=== PATIENT | female | born 1940 | race Hispanic/Latino ===

== ENCOUNTER 2016-08-07 13:22 | Inpatient (IN) | payer MEDICARE, BC ==
[2016-08-07 13:23] VITALS: BMI 14.4
[2016-08-07] MEDS ORDERED: Sodium Chloride 0.9% 500 ML IV ONE (13:38)
[2016-08-07] MEDS ORDERED: Tetanus/Diphtheria Toxoids 0.5 ml Syringe IM ONE ×2 (13:38→16:17)
--- NOTE | 2016-08-07 13:52 | C.PDOC ---
History Of Present Illness 76 y/o female with PMHx of arthritis brought to ED by EMS after patient was found on floor. Patient states she tripped at home and landed on her face. Patient complaints of left face, hip and right leg pain. Patient denies abdominal pain, ACKERMAN, dizziness or any other complaints at this time. Patient is a poor historian - HPI Time Seen by Provider: 08/07/16 13:29 Chief Complaint (Nursing): Trauma History Per: Patient History/Exam Limitations: no limitations Onset/Duration Of Symptoms: Days Past Medical History Reviewed: Historical Data, Nursing Documentation, Vital Signs Vital Signs: Last Vital Signs Temp 97.1 F L 08/07/16 15:23 Pulse 118 H 08/07/16 17:06 Resp 20 08/07/16 17:06 BP 105/49 L 08/07/16 17:06 Pulse Ox 98 08/07/16 17:06 - Medical History PMH: Arthritis (right wrist), Bronchitis Surgical History: Appendectomy - [facility] Procedures CATARAC PHACOEMULS/ASPIR (08/10/14) INSERT LENS AT CATAR EXT (08/10/14) Family History: States: No Known Family Hx - Social History Hx Alcohol Use: No Hx Substance Use: No - Immunization History Hx Tetanus Toxoid Vaccination: No Hx Influenza Vaccination: No Hx Pneumococcal Vaccination: No Review Of Systems Except As Marked, All Systems Reviewed And Found Negative. Constitutional: Negative for: Fever, Chills Respiratory: Negative for: Shortness of Breath Musculoskeletal: Positive for: Neck Pain, Leg Pain Skin: Positive for: Bruising Neurological: Negative for: Weakness, Headache, Dizziness Physical Exam - Physical Exam Appears: Chronically Ill Skin: Dry, Pale Head: Atraumatic, Normacephalic, Other (Left face Hematoma and bruising) Eye(s): bilateral: Normal Inspection, PERRL Oral Mucosa: Moist Neck: Decreased ROM Gastrointestinal/Abdominal: Soft, No Tenderness, No Guarding, No Rebound Extremity: Tenderness, Other (Right arm bruising, right leg contracted, pain to right hip) Neurological/Psych: Oriented x3 ED Course And Treatment - Laboratory Results Result Diagrams: 08/07/16 14:43 08/07/16 14:43 ECG Rhythm: Atrial Fibrillation (w/ rapid ventricular response), ST/T Changes ( Abnormality, consider lateral ischemia) ECG Interpretation: Abnormal Rate From EC Medical Decision Making Medical Decision Making: Patient persistently tachy, no fever, no obvious source of infection, urine clear, X Ray chest, unremarkable, but yet patient has elevated lactate and WBC count. Patient treated with pain management, IV fluids and bread spectrum ABX Patient is status post fall with unknown time on the ground. She is not in rhabdo, she has a right hip fracture, with questionable findings to left hip. Spoke with PMD, requesting ICU. Spoke with ICU, agree with admission to ICU. Disposition - Disposition Disposition: HOSPITALIZED Disposition Time: 17:59 Condition: GUARDED - Clinical Impression Clinical Impression: Sepsis, Pelvic fracture, Dehydration - PA / ENTRY MANAGER / Resident Statement MD/DO has reviewed & agrees with the documentation as recorded. MD/DO has examined the patient and agrees with the treatment plan. - Scribe Statement The provider has reviewed the documentation as recorded by the Derekibdeborah Cortes All medical record entries made by the Derekibdeborah were at my direction and personally dictated by me. I have reviewed the chart and agree that the record accurately reflects my personal performance of the history, physical exam, medical decision making, and the department course for this patient. I have also personally directed, reviewed, and agree with the discharge instructions and disposition. Decision To Admit - Pt Status Changed To: Hospital Disposition Of: Inpatient - Admit Certification Admit to Inpatient:: After my assessment, the patient will require hospitalization for at least two midnights. This is because of the severity of symptoms shown, intensity of services needed, and/or the medical risk in this patient being treated as an outpatient. - InPatient: Physician Admission Certification: I certify that this patient requires 2 or more midnights of care for the following reason:: critically ill patient - . Bed Request Type: ICU Admitting Physician: Paul Rodriguez Patient Diagnosis: Sepsis, Pelvic fracture, Dehydration
[2016-08-07] MEDS ORDERED: Sodium Chloride 0.9% 1,000 ML ONE (14:34)
[2016-08-07 14:49] LABS: BASO % 0.1 % (0.0-2.0); HEMOGLOBIN 14.9 g/dL (11.0-16.0); LYMPH # 0.4 K/uL (1.0-4.3); LYMPH % 2.2 % (20.0-40.0); MEAN CELL VOLUME 112.8 fL (81.0-99.0); MEAN CORPUSCULAR HEMOGLOBIN 36.8 pg (27.0-31.0); MEAN CORPUSCULAR HGB CONC 32.6 g/dL (33.0-37.0); MEAN PLATELET VOLUME 10.1 fL (7.2-11.7); MONO # 1.5 K/uL (0.0-0.8); NEUT # 17.4 K/uL (1.8-7.0); NEUT % 89.7 % (50.0-75.0); NRBC % 0.1 % (0.0-2.0); PLATELET COUNT 175 K/uL (130-400); RBC 4.06 Mil/uL (3.80-5.20); RED CELL DISTRIBUTION WIDTH 18.1 % (11.5-14.5); WHITE BLOOD COUNT 19.4 K/uL (4.8-10.8)
[2016-08-07 14:52] LABS: VENOUS BLOOD GAS BASE EXCESS -7.3 mmol/L (0.0-2.0); VENOUS BLOOD GAS PCO2 39 mmHg (40-60); VENOUS BLOOD GAS PO2 27 mm/Hg (30-55); VENOUS BLOOD PH 7.29 (7.32-7.43)
[2016-08-07 14:57] LABS: ALBUMIN 3.6 g/dL (3.5-5.0); INR 1.1; PROTHROMBIN TIME 12.2 SECONDS (9.7-12.2)
[2016-08-07 15:00] LABS: ALT/SGPT 70 U/L (9-52); AST/SGOT 103 U/L (14-36); BLOOD UREA NITROGEN 52 mg/dL (7-17); CALCIUM 8.3 mg/dl (8.6-10.4); GFR AFRICAN-AMERICAN 31; GFR NON-AFRICAN AMERICAN 26
[2016-08-07 15:07] LABS: BANDS 1 % (0-2); MONOCYTE 2 % (0-10); NEUTROPHIL 96 % (50-75); TOTAL CELLS COUNTED 100
[2016-08-07 15:08] LABS: ANISOCYTOSIS SLIGHT; PLATELET ESTIMATE NORMAL (NORMAL)
[2016-08-07 15:09] LABS: POLYCHROMIC SLIGHT; TEARDROP CELLS SLIGHT
[2016-08-07 15:12] LABS: LYMPHOCYTE 1 % (20-40)
[2016-08-07] MEDS ORDERED: cefTRIAXone IV 1 gm in Dextros 50 ML IVPB ONE ×2 (15:13→15:26)
--- NOTE | 2016-08-07 15:20 | RAD ---
PROCEDURE: CHEST RADIOGRAPH, 1 VIEW HISTORY: fall COMPARISON: None available. FINDINGS: LUNGS: Clear. PLEURA: No pneumothorax or pleural fluid seen. CARDIOVASCULAR: Normal. OSSEOUS STRUCTURES: Thoracic dextroscoliosis. No osseous fracture identified. VISUALIZED UPPER ABDOMEN: Normal. OTHER FINDINGS: None. IMPRESSION: No active disease.
[2016-08-07] MEDS ORDERED: Sodium Chloride 0.9% 2,000 ML ONE (15:26)
[2016-08-07 15:49] LABS: GRANULAR CAST 1 /lpf (0-1); URINE AMORPHOUS SEDIMENT OCC /ul (<OCC); URINE BACTERIA RARE (<OCC); URINE BILIRUBIN NEGATIVE (NEGATIVE); URINE BLOOD NEGATIVE (NEGATIVE); URINE CLARITY Hazy (Clear); URINE COLOR Amber (YELLOW); URINE GLUCOSE (UA) 1+ mg/dL (Normal); URINE HYALINE CAST >20 /lpf (0-2); URINE LEUKOCYTE ESTERASE NEG Leu/uL (Negative); URINE NITRATE NEGATIVE (NEGATIVE); URINE PROTEIN 1+ mg/dL (NEGATIVE)
--- NOTE | 2016-08-07 16:16 | CT ---
PROCEDURE: CT HEAD WITHOUT CONTRAST. HISTORY: fall COMPARISON: None available. TECHNIQUE: Axial computed tomography images were obtained through the head/brain without intravenous contrast. Radiation dose: Total exam DLP = 795.01 mGy-cm. This CT exam was performed using one or more of the following dose reduction techniques: Automated exposure control, adjustment of the mA and/or kV according to patient size, and/or use of iterative reconstruction technique. FINDINGS: HEMORRHAGE: No intracranial hemorrhage. BRAIN: No mass effect or edema. Mild diffuse age-appropriate cerebral atrophy. Mild to moderate periventricular white matter lucency consistent with microvascular ischemic change. VENTRICLES: Unremarkable. No hydrocephalus. CALVARIUM: Unremarkable. PARANASAL SINUSES: Unremarkable as visualized. No significant inflammatory changes. MASTOID AIR CELLS: Unremarkable as visualized. No inflammatory changes. OTHER FINDINGS: None. IMPRESSION: No intracranial hemorrhage. Age related atrophy and chronic microvascular ischemic change.
--- NOTE | 2016-08-07 16:22 | CT ---
CT orbits without IV contrast Indication: Trauma, fall Comparison: None available Technique: Axial computed tomography images were obtained of the orbits without the use of intravenous contrast. Coronal and sagittal reformatted images were generated and reviewed. This CT exam was performed using 1 or more of the falling dose reduction techniques: Automated exposure control, adjustment of the MAA and/or kV according to patient size, and/or use of iterative reconstruction technique. Radiation dose: Total exam DLP = 996.97 mGy-cm. Findings: Extensive streak artifact from dental hardware. Left facial soft tissue swelling. The facial bones appear intact without acute displaced fracture identified. Osseous demineralization. Visualized paranasal sinuses appear clear without air-fluid levels. The mastoid air cells appear clear. The temporomandibular joints are located. The orbits appear unremarkable. Opacification within the right external auditory canal, likely cerumen. The visualized brain demonstrates generalized atrophy nonspecific white matter changes. Degenerative changes of the included portions upper cervical spine. Impression: Left facial soft tissue swelling. Otherwise, no acute findings. See above.
--- NOTE | 2016-08-07 16:50 | RAD ---
PROCEDURE: Right Hip Radiographs. HISTORY: trauma COMPARISON: None. FINDINGS: BONES: There is a fracture of the right femoral neck. The fracture is displaced and mildly impacted. There is linear lucency through the left greater trochanter which may reflect fracture. This is not well evaluated radiographically. Please correlate clinically and consider further radiographic evaluation if clinically warranted. . The pelvis appears intact. The right femoral head is normally situated in the acetabulum. JOINTS: Normal. SOFT TISSUES: Normal. OTHER FINDINGS: None. IMPRESSION: Fracture right femoral neck with displacement and mild impaction. Questionable fracture of left greater trochanter. Please correlate clinically and consider further radiographic evaluation.
--- NOTE | 2016-08-07 17:17 | CT ---
CT cervical spine without IV contrast Indication: Trauma Comparison: None available Technique: Axial computed tomography images were obtained of the cervical spine without the use of intravenous contrast. Coronal and sagittal reformatted images were created and reviewed. This CT exam was performed using 1 or more of the falling dose reduction techniques: Automated exposure control, adjustment of the MAA and/or kV according to patient size, and/or use of iterative reconstruction technique. Radiation dose: Total exam DLP = 216.48 mGy-cm. Findings: Straightening of the normal cervical lordosis may be related to muscle spasm or positioning. Multilevel degenerative changes including intervertebral disc space narrowing and small osteophyte formation. There is no evidence of acute fracture or subluxation. Vertebral body heights appear within normal limits. The prevertebral soft tissues and spinolaminar lines appear intact. The lateral masses are preserved. The dens tip is intact. There is proper alignment of the lateral masses of C1 with the C2 vertebral body. Carotid artery calcifications bilaterally. Included portions of the thyroid gland appear unremarkable. Included portions of lung apices demonstrates emphysematous changes. Impression: No evidence of acute fracture or subluxation. Straightening of the normal cervical lordosis may be related to muscle spasm or positioning. Emphysema within the included lung apices. Bilateral carotid artery calcifications.
[2016-08-07 17:35] LABS: VENOUS BLOOD GAS BASE EXCESS -8.1 mmol/L (0.0-2.0); VENOUS BLOOD GAS PCO2 50 mmHg (40-60); VENOUS BLOOD GAS PO2 33 mm/Hg (30-55); VENOUS BLOOD PH 7.21 (7.32-7.43)
--- NOTE | 2016-08-07 18:33 | CP.PCM.CON ---
<Kiran Barnett - Last Filed: 08/07/16 18:55> History of Present Illness - History of Present Illness History of Present Illness: ICU Consult note This is a 76 yo F with no significant PMH, on no medications (confirmed by pt's PMD) that presented s/p fall at home. Pt states that she tripped at home and fell to the ground. She denies any LOC but does admit to hitting her face. She has pain on the left side of her face, left hip and right leg pain. Pt denies any dizziness or light headedness prior to the fall but is complaining of generalized weakness. Per report from pt's , pt frequently will feel weak and go to the ground where he will leave her there to rest because he is not able to lift her back up. It is unclear how long patient was down for this time after the fall. Pt denies any current headache, fevers, chills, visual changes, neck pain, chest pain, sob, nausea or vomiting. Pt is a poor historian. PMD: Jennifer PMH: arthritis PSH: appendectomy Home meds: denies All: Egg SH: Denies Etoh and tob Review of Systems - Review of Systems All systems: reviewed and no additional remarkable complaints except (where noted in HPI) Past Patient History - Past Medical History & Family History Past Medical History?: Yes - Past Social History Smoking Status: Former Smoker - CARDIAC Hx Cardiac Disorders: No - PULMONARY Hx Bronchitis: Yes - NEUROLOGICAL Hx Neurological Disorder: No - HEENT Hx HEENT Problems: Yes Hx Cataracts: Yes - RENAL Hx Chronic Kidney Disease: No - ENDOCRINE/METABOLIC Hx Endocrine Disorders: No - HEMATOLOGICAL/ONCOLOGICAL Hx Blood Disorders: No - INTEGUMENTARY Hx Dermatological Problems: No - MUSCULOSKELETAL/RHEUMATOLOGICAL Hx Arthritis: Yes (right wrist) - GASTROINTESTINAL Hx Gastrointestinal Disorders: No - GENITOURINARY/GYNECOLOGICAL Hx Genitourinary Disorders: No - PSYCHIATRIC Hx Substance Use: No - SURGICAL HISTORY Hx Appendectomy: Yes - ANESTHESIA Hx Anesthesia: Yes Hx Anesthesia Reactions: Yes ("cough") Hx Malignant Hyperthermia: No Meds Allergies/Adverse Reactions: Allergies Allergy/AdvReac Type Severity Reaction Status Date / Time EGG Allergy DIZZINESS Verified 08/07/16 13:37 Physical Exam - Constitutional Appears: Toxic, In Acute Distress, Cachectic - Head Exam Additional comments: bruising over the left side of her head/face - Eye Exam Eye Exam: EOMI Pupil Exam: PERRL - ENT Exam ENT Exam: Mucous Membranes Dry - Respiratory Exam Respiratory Exam: Clear to Auscultation Bilateral, NORMAL BREATHING PATTERN - Cardiovascular Exam Cardiovascular Exam: Tachycardia, +S1, +S2 - GI/Abdominal Exam GI & Abdominal Exam: Normal Bowel Sounds, Soft. absent: Distended - Extremities Exam Extremities exam: Positive for: normal capillary refill, pedal pulses present. Negative for: pedal edema Additional comments: Tenderness over right hip to palpation - Neurological Exam Neurological exam: Alert Additional comments: Per ED staff oriented x3 earlier, on my exam was not oriented - Skin Skin Exam: Dry, Warm Results - Vital Signs Recent Vital Signs: Last Vital Signs Temp 97.1 F L 08/07/16 15:23 Pulse 114 H 08/07/16 18:23 Resp 18 08/07/16 18:23 BP 110/76 08/07/16 18:23 Pulse Ox 96 08/07/16 18:23 - Labs Result Diagrams: 08/07/16 14:43 08/07/16 14:43 Labs: Laboratory Results - last 24 hr 08/07/16 08/07/16 08/07/16 13:27 14:43 14:43 WBC 19.4 H D RBC 4.06 Hgb 14.9 Hct 45.7 MCV 112.8 H D MCH 36.8 H MCHC 32.6 L RDW 18.1 H Plt Count 175 MPV 10.1 Neut % (Auto) 89.7 H Lymph % (Auto) 2.2 L [place] % (Auto) 8.0 Eos % (Auto) 0.0 Baso % (Auto) 0.1 Neut # 17.4 H Lymph # 0.4 L [place] # 1.5 H Eos # 0.0 Baso # 0.0 Neutrophils % (Manual) 96 H Band Neutrophils % 1 Lymphocytes % (Manual) 1 L Reactive Lymphs % Pet Counselor Monocytes % (Manual) 2 Platelet Estimate Normal Polychromasia Slight Anisocytosis (manual) Slight Macrocytosis (manual) Moderate Tear Drop Cells Slight PT 12.2 INR 1.1 APTT 33 pO2 VBG pH VBG pCO2 VBG HCO3 VBG Total CO2 VBG O2 Sat (Calc) VBG Base Excess VBG Potassium Glucose Lactate Crit Value Called To Crit Value Called By Crit Value Read Back Blood Gas Notified Time Sodium Potassium Chloride Carbon Dioxide Anion Gap BUN Creatinine Est GFR ( Amer) Est GFR (Non-Af Amer) POC Glucose (mg/dL) 96 Random Glucose Calcium Total Bilirubin AST ALT Alkaline Phosphatase Total Creatine Kinase Total Protein Albumin Globulin Albumin/Globulin Ratio Venous Blood Potassium Urine Color Urine Clarity Urine pH Ur Specific Banks Urine Protein Urine Glucose (UA) Urine Ketones Urine Blood Urine Nitrate Urine Bilirubin Urine Urobilinogen Ur Leukocyte Esterase Urine RBC (Auto) Amorphous Sediment Urine Bacteria Hyaline Casts Granular Casts (Auto) Alcohol, Quantitative 08/07/16 08/07/16 08/07/16 14:43 14:45 15:23 WBC RBC Hgb Hct MCV MCH MCHC RDW Plt Count MPV Neut % (Auto) Lymph % (Auto) [place] % (Auto) Eos % (Auto) Baso % (Auto) Neut # Lymph # [place] # Eos # Baso # Neutrophils % (Manual) Band Neutrophils % Lymphocytes % (Manual) Reactive Lymphs % Monocytes % (Manual) Platelet Estimate Polychromasia Anisocytosis (manual) Macrocytosis (manual) Tear Drop Cells PT INR APTT pO2 27 L VBG pH 7.29 L VBG pCO2 39 L VBG HCO3 17.7 VBG Total CO2 20.0 L VBG O2 Sat (Calc) 46.5 VBG Base Excess -7.3 L VBG Potassium 4.2 Glucose 73 Lactate 4.4 H* Crit Value Called To alycia Maldonado Crit Value Called By Bhavin jaimes,verito Crit Value Read Back Y Blood Gas Notified Time 1455 Sodium 140 145.0 Potassium 5.1 Chloride 103 112.0 H Carbon Dioxide 21 L Anion Gap 21 H BUN 52 H Creatinine 1.9 H Est GFR ( Amer) 31 Est GFR (Non-Af Amer) 26 POC Glucose (mg/dL) Random Glucose 102 Calcium 8.3 L Total Bilirubin 1.3 AST 103 H ALT 70 H Alkaline Phosphatase 177 H Total Creatine Kinase 1326 H Total Protein 7.1 Albumin 3.6 Globulin 3.5 Albumin/Globulin Ratio 1.0 Venous Blood Potassium 4.2 Urine Color Yumiko Urine Clarity Hazy Urine pH 5.0 Ur Specific Banks 1.021 Urine Protein 1+ H Urine Glucose (UA) 1+ Urine Ketones Trace Urine Blood Negative Urine Nitrate Negative Urine Bilirubin Negative Urine Urobilinogen 2.0 H Ur Leukocyte Esterase Neg Urine RBC (Auto) 6 H Amorphous Sediment Occ H Urine Bacteria Rare Hyaline Casts >20 H Granular Casts (Auto) 1 Alcohol, Quantitative < 10 08/07/16 17:30 WBC RBC Hgb Hct MCV MCH MCHC RDW Plt Count MPV Neut % (Auto) Lymph % (Auto) [place] % (Auto) Eos % (Auto) Baso % (Auto) Neut # Lymph # [place] # Eos # Baso # Neutrophils % (Manual) Band Neutrophils % Lymphocytes % (Manual) Reactive Lymphs % Monocytes % (Manual) Platelet Estimate Polychromasia Anisocytosis (manual) Macrocytosis (manual) Tear Drop Cells PT INR APTT pO2 33 VBG pH 7.21 L VBG pCO2 50 VBG HCO3 17.3 VBG Total CO2 21.5 L VBG O2 Sat (Calc) 48.6 VBG Base Excess -8.1 L VBG Potassium 5.0 Glucose 88 Lactate 5.8 H* Crit Value Called To alycia Claire md Crit Value Called By Ashok rt Crit Value Read Back Y Blood Gas Notified Time 1734 Sodium 143.0 Potassium Chloride 112.0 H Carbon Dioxide Anion Gap BUN Creatinine Est GFR ( Amer) Est GFR (Non-Af Amer) POC Glucose (mg/dL) Random Glucose Calcium Total Bilirubin AST ALT Alkaline Phosphatase Total Creatine Kinase Total Protein Albumin Globulin Albumin/Globulin Ratio Venous Blood Potassium 5.0 Urine Color Urine Clarity Urine pH Ur Specific Banks Urine Protein Urine Glucose (UA) Urine Ketones Urine Blood Urine Nitrate Urine Bilirubin Urine Urobilinogen Ur Leukocyte Esterase Urine RBC (Auto) Amorphous Sediment Urine Bacteria Hyaline Casts Granular Casts (Auto) Alcohol, Quantitative Assessment & Plan - Assessment and Plan (Free Text) Assessment: 76 yo F with right femoral neck fracture and possible fracture of left greater trochanter s/p trip/fall at home due to reported weakness. Pt also septic with leukocytosis, tachycardia and elevated lactate. Plan: Neuro: Alert but not oriented Cont to monitor Cardiovascular: Hemodynamically stable s/p sepsis protocol resuscitation EKG - afib with RVR with rate ~130 Pulmonary: Saturating well, no respiratory distress Monitor Maintain sat > 90% Gastrointestinal: No acute issues Heart healthy diet Hematology: Hgb stable follow H/H Endocrine: No acute issues Allow for permissive hyperglycemia, avoid hypoglycemia Renal: Cr elevated 1.9 (unknown baseline) CPK elevated as well - ~1300 Continue IVF resuscitation with NS at 100 cc/hr F/U morning labs Strict I/O Monitor urine output Musculoskeletal: Right femoral neck fracture Possible left greater trochanter fracture CT pelvis - f/u results Ortho consulted - help appreciated Analgesia PRN - percocet Infectious Disease: Leukocytosis with elevated lactate Currently afebrile Given rocephin and vanc in ED Start Zosyn - renal dose Blood and urine cultures collected - f/u GI Prophylaxis: not indicated at this time DVT Prophylaxis: Heparin sc <Max Andrade - Last Filed: 08/07/16 18:59> Meds - Medications Medications: Current Medications Heparin Sodium (Porcine) (Heparin) 5,000 units SC Q12 [place] Piperacillin Sod/Tazobactam (Sod 3.375 gm/ Sodium Chloride) 100 mls @ 200 mls/ hr IVPB Q8H [place] Sodium Chloride (Sodium Chloride 0.9%) 1,000 mls @ 100 mls/hr IV .Q10H [place] Oxycodone/Acetaminophen (Percocet 5/325 Mg Tab) 1 tab PO Q4H PRN PRN Reason: Pain, moderate (4-7) Stop: 08/10/16 18:56 Results - Vital Signs Recent Vital Signs: Last Vital Signs Temp 97.1 F L 08/07/16 18:23 Pulse 114 H 08/07/16 18:23 Resp 18 08/07/16 18:23 BP 110/76 08/07/16 18:23 Pulse Ox 96 08/07/16 18:23 - Labs Result Diagrams: 08/07/16 14:43 08/07/16 14:43 Attending/Attestation - Attestation I have personally seen and examined this patient.: Yes I have fully participated in the care of the patient.: Yes I have reviewed all pertinent clinical information: Yes Notes (Text): 08/07/16 18:58 I have seen and examined the patient. Medical records, lab studies, and imaging were reviewed by me and a management plan was formulated on multidisciplinary rounds with resident Dr. Barnett. I agree with their above documented assessment and plan. Patient appears septic, source unknown, empiric tx with Zosyn. Patient dehydrated with acute kidney injury and mild rhabdomyolysis, will hydrate. Ortho to formulate plan on hip fractures. Percocet prn for pain control. Critical Care Time 35 minutes. Multi-disciplinary rounds were performed with house staff, nursing, speech therapy, respiratory therapy, pharmacy and nutrition with integrated input from the primary team/attending and other consulting services. The documented time is cumulative and includes review of patient data/exams/labs/chart review and examination of the patient on rounds and throughout the day; time is exclusive of any procedures or teaching time.
--- NOTE | 2016-08-07 18:42 | CT ---
PROCEDURE: CT Pelvis without contrast HISTORY: fracture COMPARISON: August 07, 2016. Plain film radiographs right hip cysts TECHNIQUE: Contiguous axial images of the pelvis . No intravenous or oral contrast given. Coronal and sagittal reformats generated. Radiation dose: Total exam DLP = 397.47 mGy-cm. This CT exam was performed using one or more of the following dose reduction techniques: Automated exposure control, adjustment of the mA and/or kV according to patient size, and/or use of iterative reconstruction technique. FINDINGS: BLADDER: Unremarkable. No mass. REPRODUCTIVE ORGANS: Unremarkable. VISUALIZED BOWEL: Unremarkable. PERITONEUM: Unremarkable, as visualized. No free fluid. No free air. LYMPH NODES: Unremarkable. No enlarged lymph nodes. BONES: Impacted fracture right femoral neck. The distal aspect of the femur is rotated approximately 90. There is preservation of the femoral acetabular relationship. No evidence of acetabular fracture. No evidence of acute pelvic ring fracture. Fracture of the proximal left femur. There is an avulsion fracture of the greater trochanter. There is cortical irregularity, destruction of the greater trochanters as well. This wide suggests a pathologic fracture. However my discussions with the attending physician in the emergency department indicate the patient has no history of malignancy. The only other, less likely etiology would be an infectious related fracture. There is a large soft tissue component with respect to the left proximal femoral fracture. Preservation of the left femoral acetabular relationship. VASCULATURE: Unremarkable. OTHER FINDINGS: None. IMPRESSION: 1. Impacted fracture of the proximal right femur. This appears and involves the neck of the femur. 2. Preserved right femoral acetabular relationship. 3. Destructive process with associated fracture of the greater trochanter left femur. Abundant soft tissue swelling noted. . By history, the patient does not have a known malignancy. Communication of results: I discussed these findings directly with the attending physician in the emergency department at the time of this interpretation.
[2016-08-07] MEDS: Sodium Chloride 0.9% 1,000 ML IV SCH (19:46)
[2016-08-07] MEDS: Piperacillin/Tazobact 3.375 GM in Sodium Chloride 100 ML IVPB SCH (19:55)
[2016-08-08] MEDS: Sodium Chloride 0.9% 1,000 ML IV SCH ×5 (01:39→23:27)
[2016-08-08] MEDS: Piperacillin/Tazobact 3.375 GM in Sodium Chloride 100 ML IVPB SCH ×3 (03:00→17:51)
[2016-08-08 06:34] LABS: BASO % 0.3 % (0.0-2.0); LYMPH # 0.5 K/uL (1.0-4.3); LYMPH % 3.7 % (20.0-40.0); MEAN CELL VOLUME 112.1 fL (81.0-99.0); MEAN CORPUSCULAR HEMOGLOBIN 37.2 pg (27.0-31.0); MEAN CORPUSCULAR HGB CONC 33.2 g/dL (33.0-37.0); MEAN PLATELET VOLUME 10.2 fL (7.2-11.7); MONO # 1.2 K/uL (0.0-0.8); NEUT # 11.1 K/uL (1.8-7.0); NRBC % 0.2 % (0.0-2.0); PLATELET COUNT 150 K/uL (130-400); RBC 3.78 Mil/uL (3.80-5.20); RED CELL DISTRIBUTION WIDTH 18.1 % (11.5-14.5); WHITE BLOOD COUNT 12.8 K/uL (4.8-10.8)
[2016-08-08 06:45] LABS: ALBUMIN 2.8 g/dL (3.5-5.0)
[2016-08-08 06:48] LABS: ALB/GLOB RATIO 0.9 (1.0-2.1)
[2016-08-08 06:49] LABS: MAGNESIUM 1.9 mg/dL (1.6-2.3)
--- NOTE | 2016-08-08 08:28 | CP.PCM.CON ---
History of Present Illness - History of Present Illness History of Present Illness: Orthopedic consultation requested Dr. Elena for fall, b hip pain 76F complains of bilateral hip and neck pain and facial pain after fall yesterday. Patient says she fell at home, says she walks without any assistive device. She denies any numbness/tingling/back pain/arm pain. She denies CP/SOB/n /v at this time. Review of Systems - Review of Systems All systems: reviewed and no additional remarkable complaints except - Constitutional Additional comments: denies - Cardiovascular Cardiovascular: As Per HPI - Respiratory Respiratory: As Per HPI - Gastrointestinal Gastrointestinal: As Per HPI - Musculoskeletal Musculoskeletal: As Per HPI - Integumentary Integumentary: Wounds - Neurological Neurological: As Per HPI - Hematologic/Lymphatic Hematologic: absent: As Per HPI, Easy Bleeding, Easy Bruising, Lymphadenopathy, Other Past Patient History - Past Medical History & Family History Past Medical History?: Yes Past Family History: Reviewed and not pertinent - Past Social History Smoking Status: Heavy Smoker > 10 Cigarettes Daily - CARDIAC Hx Cardiac Disorders: No - PULMONARY Hx Bronchitis: Yes - NEUROLOGICAL Hx Neurological Disorder: No - HEENT Hx HEENT Problems: Yes Hx Cataracts: Yes - RENAL Hx Chronic Kidney Disease: No - ENDOCRINE/METABOLIC Hx Endocrine Disorders: No - HEMATOLOGICAL/ONCOLOGICAL Hx Blood Disorders: No - INTEGUMENTARY Hx Dermatological Problems: No - MUSCULOSKELETAL/RHEUMATOLOGICAL Hx Arthritis: Yes (right wrist) - GASTROINTESTINAL Hx Gastrointestinal Disorders: No - GENITOURINARY/GYNECOLOGICAL Hx Genitourinary Disorders: No - PSYCHIATRIC Hx Substance Use: No - SURGICAL HISTORY Hx Appendectomy: Yes - ANESTHESIA Hx Anesthesia: Yes Hx Anesthesia Reactions: Yes ("cough") Hx Malignant Hyperthermia: No Meds Allergies/Adverse Reactions: Allergies Allergy/AdvReac Type Severity Reaction Status Date / Time EGG Allergy DIZZINESS Verified 08/07/16 13:37 - Medications Medications: Current Medications Heparin Sodium (Porcine) (Heparin) 5,000 units SC Q12 [facility] Last Admin: 08/07/16 21:50 Dose: 5,000 units Piperacillin Sod/Tazobactam (Sod 3.375 gm/ Sodium Chloride) 100 mls @ 200 mls/ hr IVPB Q8H [facility] Last Admin: 08/08/16 03:00 Dose: 200 mls/hr Sodium Chloride (Sodium Chloride 0.9%) 1,000 mls @ 100 mls/hr IV .Q10H [facility] Last Admin: 08/08/16 05:45 Dose: Not Given Oxycodone/Acetaminophen (Percocet 5/325 Mg Tab) 1 tab PO Q4H PRN PRN Reason: Pain, moderate (4-7) Stop: 08/10/16 18:56 Pantoprazole Sodium (Protonix Inj) 40 mg IVP DAILY [facility] Physical Exam - Constitutional Appears: In Acute Distress Additional comments: acute painful distress during exam - Neck Exam Neck exam: Positive for: Normal Inspection, Tenderness Additional comments: pain with flexion - Respiratory Exam Respiratory Exam: NORMAL BREATHING PATTERN - Expanded Upper Extremities Exam Left Shoulder exam: full ROM Elbow exam: full ROM Forearm Wrist exam: abrasion, full ROM Neuro motor exam: finger 2-5 abduction intact, thumb abduction, thumb IP flexion intact, thumb opposition intact, wrist extension intact Neurosensory exam: median nerve intact, radial nerve intact, ulnar nerve intact Vascular exam: radial pulse Right Shoulder exam: full ROM, normal inspection Elbow exam: full ROM Forearm Wrist exam: abrasion Neuro motor exam: finger 2-5 abduction intact, thumb abduction, thumb IP flexion intact, thumb opposition intact, wrist extension intact Neurosensory exam: median nerve intact, radial nerve intact, ulnar nerve intact Vascular exam: radial pulse - Expanded Lower Extremities Exam Left Hip exam: full ROM, tenderness (tenderness to lateral thigh) Lower Leg Exam: full ROM Ankle exam: FULL ROM Neuro vacular tendon exam: no vascular compromise Right Hip exam: external rotation, shortening, swelling Knee exam: abrasion, effusion (non tender, no lax to varus/valgus/ant/post drawer/lach) Ankle exam: FULL ROM Neuro vacular tendon exam: no vascular compromise - Back Exam Back exam: NORMAL INSPECTION Additional comments: no vertebral or paraspinal tenderness - Neurological Exam Neurological exam: Alert - Psychiatric Exam Psychiatric exam: Normal Affect, Normal Mood - Skin Skin Exam: Dry, Intact, Normal Color, Warm Results - Vital Signs Recent Vital Signs: Last Vital Signs Temp 97.7 F 08/08/16 08:00 Pulse 114 H 08/08/16 08:07 Resp 29 H 08/08/16 08:07 BP 87/70 L 08/08/16 08:07 Pulse Ox 75 L 08/08/16 08:07 - Labs Result Diagrams: 08/08/16 06:28 08/08/16 06:28 Labs: Laboratory Results - last 24 hr 08/08/16 08/08/16 08/08/16 04:00 06:28 06:28 WBC 12.8 H RBC 3.78 L Hgb 14.0 Hct 42.4 MCV 112.1 H MCH 37.2 H MCHC 33.2 RDW 18.1 H Plt Count 150 MPV 10.2 Neut % (Auto) 87.0 H Lymph % (Auto) 3.7 L Saunders % (Auto) 9.0 Eos % (Auto) 0.0 Baso % (Auto) 0.3 Neut # 11.1 H Lymph # 0.5 L Saunders # 1.2 H Eos # 0.0 Baso # 0.0 Sodium 141 Potassium 4.5 Chloride 109 H Carbon Dioxide 18 L Anion Gap 19 BUN 53 H Creatinine 2.0 H Est GFR ( Amer) 29 Est GFR (Non-Af Amer) 24 Random Glucose 82 Lactic Acid 1.3 Calcium 7.0 L Phosphorus 5.1 H Magnesium 1.9 Total Bilirubin 0.8 AST 86 H ALT 73 H Alkaline Phosphatase 131 H D Total Protein 5.9 L Albumin 2.8 L D Globulin 3.1 Albumin/Globulin Ratio 0.9 L Assessment & Plan (1) Displaced fracture of right femoral neck Assessment and Plan: Patient with acute right femoral neck fx, and noted hip DJD on imaging, so will proceed with right total hip replacement when patient is medically optimized and sepsis is resolved. Surgery is contraindicated with infection. Blood cx pending. -recommend DVT proph, decub precautions venodynes and boots intact -will plan for OR Friday 08/11 if cleared -d/w Dr. Elena, agrees with above Status: Acute (2) Degenerative joint disease of right hip Assessment and Plan: see above Status: Chronic (3) Swelling of knee joint, right Assessment and Plan: xrays right knee Status: Acute (4) Closed fracture of greater trochanter of left femur Assessment and Plan: non operative conservative mgmt indicated Status: Acute Radiology Interpretation - Purse Seining Hand Purse Seining Hand:: Radiologist, Director Speech And Hearing - Radiology Interpretation #2 Interpretation: Accession No. : [id number] Patient Name / ID : HORACE Emanuel / [id number] Exam Date : 08/07/2016 15:49:37 ( Approved ) Study Comment : Sex / Age : F / 6Y Creator : Cheyanne Pemberton MD Dictator : Cheyanne Pemberton MD Siding Applicator : Javascript Engineer : Cheyanne Pemberton MD Approver2 : Report Date : 08/07/2016 17:15:31 My Comment : CT cervical spine without IV contrast Indication: Trauma Comparison: None available Technique: Axial computed tomography images were obtained of the cervical spine without the use of intravenous contrast. Coronal and sagittal reformatted images were created and reviewed. This CT exam was performed using 1 or more of the falling dose reduction techniques: Automated exposure control, adjustment of the MAA and/or kV according to patient size, and/or use of iterative reconstruction technique. Radiation dose: Total exam DLP = 216.48 mGy-cm. Findings: Straightening of the normal cervical lordosis may be related to muscle spasm or positioning. Multilevel degenerative changes including intervertebral disc space narrowing and small osteophyte formation. There is no evidence of acute fracture or subluxation. Vertebral body heights appear within normal limits. The prevertebral soft tissues and spinolaminar lines appear intact. The lateral masses are preserved. The dens tip is intact. There is proper alignment of the lateral masses of C1 with the C2 vertebral body. Carotid artery calcifications bilaterally. Included portions of the thyroid gland appear unremarkable. Included portions of lung apices demonstrates emphysematous changes. Impression: No evidence of acute fracture or subluxation. Straightening of the normal cervical lordosis may be related to muscle spasm or positioning. Emphysema within the included lung apices. Bilateral carotid artery calcifications atient Name / ID : HORACE Emanuel / [id number] Exam Date : 08/07/2016 18:00:35 ( Approved ) Study Comment : Sex / Age : F / 76Y Creator : Juan Yusuf MD Dictator : Juan Yusuf MD Siding Applicator : Javascript Engineer : Juan Yusuf MD Approver2 : Report Date : 08/07/2016 18:41:04 My Comment : PROCEDURE: CT Pelvis without contrast HISTORY: fracture COMPARISON: August 07, 2016. Plain film radiographs right hip cysts TECHNIQUE: Contiguous axial images of the pelvis . No intravenous or oral contrast given. Coronal and sagittal reformats generated. Radiation dose: Total exam DLP = 397.47 mGy-cm. This CT exam was performed using one or more of the following dose reduction techniques: Automated exposure control, adjustment of the mA and/or kV according to patient size, and/or use of iterative reconstruction technique. FINDINGS: BLADDER: Unremarkable. No mass. REPRODUCTIVE ORGANS: Unremarkable. VISUALIZED BOWEL: Unremarkable. PERITONEUM: Unremarkable, as visualized. No free fluid. No free air. LYMPH NODES: Unremarkable. No enlarged lymph nodes. BONES: Impacted fracture right femoral neck. The distal aspect of the femur is rotated approximately 90. There is preservation of the femoral acetabular relationship. No evidence of acetabular fracture. No evidence of acute pelvic ring fracture. Fracture of the proximal left femur. There is an avulsion fracture of the greater trochanter. There is cortical irregularity, destruction of the greater trochanters as well. This wide suggests a pathologic fracture. However my discussions with the attending physician in the emergency department indicate the patient has no history of malignancy. The only other, less likely etiology would be an infectious related fracture. There is a large soft tissue component with respect to the left proximal femoral fracture. Preservation of the left femoral acetabular relationship. VASCULATURE: Unremarkable. OTHER FINDINGS: None. IMPRESSION: 1. Impacted fracture of the proximal right femur. This appears and involves the neck of the femur. 2. Preserved right femoral acetabular relationship. 3. Destructive process with associated fracture of the greater trochanter left femur. Abundant soft tissue swelling noted. . By history, the patient does not have a known malignancy. Communication of results: I discussed these findings directly with the attending physician in the emergency department at the time of this interpretation. Patient Name / ID : HORACE Emanuel / [id number] Exam Date : 08/07/2016 15:13:52 ( Approved ) Study Comment : Sex / Age : F / 76Y Creator : Young Cullen MD Dictator : Young Cullen MD Siding Applicator : Javascript Engineer : Young Cullen MD Approver2 : Report Date : 08/07/2016 16:49:23 My Comment : PROCEDURE: Right Hip Radiographs. HISTORY: trauma COMPARISON: None. FINDINGS: BONES: There is a fracture of the right femoral neck. The fracture is displaced and mildly impacted. There is linear lucency through the left greater trochanter which may reflect fracture. This is not well evaluated radiographically. Please correlate clinically and consider further radiographic evaluation if clinically warranted. . The pelvis appears intact. The right femoral head is normally situated in the acetabulum. JOINTS: Normal. SOFT TISSUES: Normal. OTHER FINDINGS: None. IMPRESSION: Fracture right femoral neck with displacement and mild impaction. Questionable fracture of left greater trochanter. Please correlate clinically and consider further radiographic evaluation. .
[2016-08-08 08:47] LABS: BANDS 5 % (0-2); LYMPHOCYTE 7 % (20-40); MONOCYTE 5 % (0-10); NEUTROPHIL 83 % (50-75); NUCLEATED RED BLOOD CELL 1 % (0-0); PLATELET ESTIMATE NORMAL (NORMAL); TOTAL CELLS COUNTED 100
--- NOTE | 2016-08-08 10:54 | CP.PCM.HP ---
History of Present Illness - History of Present Illness History of Present Illness: 76 years old female was brought by ambulance to the ED at [facility], because of a fall yesterday at home, and inability to stand up. The patient and her were not sure how long she lied on the floor after her fall. Now she is complaining of pain in her face, right hip and left pain, left hip pain. She was found to be slightly lethargic and disoriented, and hypotensive. She denies any dizziness, any palpitation. CT scan of the abdomen and pelvis, the hips, reveals displaced right femoral neck fraction and non-displaced fracture of the left greater trochanter. CXR revealed emphysema and no acute infiltrate. CT scan of the head and neck reveal no facial bone fracture, no cervical spine fracture or dislocation, no intracerebral hemorrhage. ECG: reveals a sinus tachycardia with frequent PAC's, and short runs of SVT. U/A is normal. WBC: 19, 400 with 90% PMN. Lactic acid: 4.4. ABG shows metabolic acidosis. BUN:50 creatinine: 1.9 CPK: 1326. She was started on IV Normal saline, IV Vancomycine and Rocephine in the ED and monitored in ICU. She is known to have a hypertension, on Cardizem CD 180 mg PO qd, an emphysema ( she still smokes a few cigarettes a day), an anxiety, and a cardiac arrhythmia ( frequent PAC's and short runs of SVT). She had a normal Persantine stress test in 2014 and a normal systolic left ventricular function. 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 Present on Admission - Present on Admission Any Indicators Present on Admission: No Review of Systems - Review of Systems Systems not reviewed;Unavailable: Altered Mental Status Past Patient History - Infectious Disease Hx of Infectious Diseases: None - Tetanus Immunizations Tetanus Immunization: Unknown - Past Medical History & Family History Past Medical History?: Yes Past Family History: Reviewed and not pertinent - Past Social History Smoking Status: Heavy Smoker > 10 Cigarettes Daily Alcohol: None Drugs: Denies Home Situation {Lives}: With Family Domestic Violence: Negative - CARDIAC Hx Cardiac Disorders: No Hx Hypertension: Yes - PULMONARY Hx Bronchitis: Yes Hx Emphysema: Yes - NEUROLOGICAL Hx Neurological Disorder: No - HEENT Hx HEENT Problems: Yes Hx Cataracts: Yes - RENAL Hx Chronic Kidney Disease: No - ENDOCRINE/METABOLIC Hx Endocrine Disorders: No - HEMATOLOGICAL/ONCOLOGICAL Hx Blood Disorders: No - INTEGUMENTARY Hx Dermatological Problems: No - MUSCULOSKELETAL/RHEUMATOLOGICAL Hx Arthritis: Yes (right wrist) - GASTROINTESTINAL Hx Gastrointestinal Disorders: No - GENITOURINARY/GYNECOLOGICAL Hx Genitourinary Disorders: No - PSYCHIATRIC Hx Anxiety: Yes Hx Substance Use: No - SURGICAL HISTORY Hx Appendectomy: Yes Hx Eye Surgery: Yes - ANESTHESIA Hx Anesthesia: Yes Hx Anesthesia Reactions: Yes ("cough") Hx Malignant Hyperthermia: No Has any member of the family had a problem w/ anesthesia?: No Meds Allergies/Adverse Reactions: Allergies Allergy/AdvReac Type Severity Reaction Status Date / Time EGG Allergy DIZZINESS Verified 08/07/16 13:37 Physical Exam - Constitutional Appears: In Acute Distress, Chronically Ill Additional comments: Patient slightly lethargic and disoriented. - Eye Exam Eye Exam: Normal appearance Additional comments: Left joaquín-orbital hematoma. - ENT Exam ENT Exam: Normal Exam - Neck Exam Neck exam: Positive for: Normal Inspection - Respiratory Exam Respiratory Exam: Clear to Auscultation Bilateral, NORMAL BREATHING PATTERN - Cardiovascular Exam Cardiovascular Exam: Tachycardia, Irregular Rhythm - GI/Abdominal Exam GI & Abdominal Exam: Normal Bowel Sounds, Soft - Rectal Exam Rectal Exam: Deferred - Extremities Exam Additional comments: Bruises at both knees. Tender both hip. External rotation of the right leg. Excoriation of the wrists. Slight cyanosis of the toes. - Back Exam Back exam: NORMAL INSPECTION - Neurological Exam Neurological exam: Altered - Psychiatric Exam Additional comments: Slightly confused - Skin Skin Exam: Abrasion Additional comments: Abrasions and hematoma as described above. Results - Vital Signs Recent Vital Signs: Last Vital Signs Temp 97.7 F 08/08/16 08:00 Pulse 145 H 08/08/16 09:07 Resp 43 H 08/08/16 09:07 BP 92/70 L 08/08/16 09:07 Pulse Ox 87 L 08/08/16 09:00 - Labs Result Diagrams: 08/08/16 06:28 08/08/16 06:28 Labs: Laboratory Results - last 24 hr 08/08/16 08/08/16 08/08/16 04:00 06:28 06:28 WBC 12.8 H RBC 3.78 L Hgb 14.0 Hct 42.4 MCV 112.1 H MCH 37.2 H MCHC 33.2 RDW 18.1 H Plt Count 150 MPV 10.2 Neut % (Auto) 87.0 H Lymph % (Auto) 3.7 L Woods % (Auto) 9.0 Eos % (Auto) 0.0 Baso % (Auto) 0.3 Neut # 11.1 H Lymph # 0.5 L Woods # 1.2 H Eos # 0.0 Baso # 0.0 Neutrophils % (Manual) 83 H Band Neutrophils % 5 H Lymphocytes % (Manual) 7 L Monocytes % (Manual) 5 Nucleated RBC % 1 H Platelet Estimate Normal RBC Morphology Normal Sodium 141 Potassium 4.5 Chloride 109 H Carbon Dioxide 18 L Anion Gap 19 BUN 53 H Creatinine 2.0 H Est GFR ( Amer) 29 Est GFR (Non-Af Amer) 24 Random Glucose 82 Lactic Acid 1.3 Calcium 7.0 L Phosphorus 5.1 H Magnesium 1.9 Total Bilirubin 0.8 AST 86 H ALT 73 H Alkaline Phosphatase 131 H D Total Protein 5.9 L Albumin 2.8 L D Globulin 3.1 Albumin/Globulin Ratio 0.9 L Assessment & Plan (1) Closed fracture of greater trochanter of left femur Assessment and Plan: Medical treatment. Status: Acute (2) Displaced fracture of right femoral neck Assessment and Plan: Right hip replacement when more stable, as per Dr Elena. Status: Acute (3) Dehydration Assessment and Plan: IV normal saline. Status: Acute (4) Sepsis Assessment and Plan: IV antibiotics IV after blood and urine cultures. Status: Acute (5) Fall Status: Acute (6) Arrhythmia Assessment and Plan: Correct dehydration, treat sepsis first. Will put back on Cardizem when BP improves Status: Acute (7) Contusion of head Status: Acute Decision To Admit - Pt Status Changed To: Hospital Disposition Of: Inpatient - Admit Certification Admit to Inpatient:: After my assessment, the patient will require hospitalization for at least two midnights. This is because of the severity of symptoms shown, intensity of services needed, and/or the medical risk in this patient being treated as an outpatient. - InPatient: Physician Admission Certification:: After my assessments, the patient requires hospitalization for at least 2 midnights. - . Bed Request Type: ICU Admitting Physician: Paul Rodriguez
[2016-08-08] MEDS: diltiaZEM 180 mg/24 Hours CD Cap PO SCH (11:00)
--- NOTE | 2016-08-08 13:08 | CP.CCUPN ---
<Kiran Barnett - Last Filed: 08/08/16 14:37> CCU Subjective - Physician Review Subjective (Free Text): 08/08/16 12:51 PGY-1 ICU progress note Pt seen and examined at bedside. Pt much more alert today and responding appropriately. No acute events overnight. Pt states that she feels better today overall compared to yesterday. Denies any chest pain, palpitations, sob, nausea or vomiting. She also states that she doesnt have significant pain anywhere. Critical Care Time Spent (in minutes): 35 CCU Objective - Vital Signs / Intake & Output Vital Signs (Last 4 hours): Vital Signs Pulse Resp BP Pulse Ox 08/08/16 11:07 134 H 28 H 110/73 88 L 08/08/16 11:00 125 H 20 95 08/08/16 10:07 121 H 15 103/74 93 L 08/08/16 10:00 129 H 15 93 L 08/08/16 09:07 145 H 43 H 92/70 L 08/08/16 09:00 146 H 19 87 L Intake and Output (Last 8hrs): Intake & Output 08/07/16 08/08/16 08/08/16 22:59 06:59 14:59 Intake Total 300 800 750 Output Total 40 110 130 Balance 260 690 620 Weight 118 lb Intake: Intake, IV Amount 300 800 500 Left Wrist 300 800 500 Oral 250 Output: Urine 40 110 130 Urethral (Martinez) 40 110 130 Other: Voiding Method Indwelling Catheter - Physical Exam Head: Positive for: Other (Contusions over left side of face) Pupils: Positive for: PERRL Extroacular Muscles: Positive for: EOMI Mouth: Positive for: Dry Respiratory/Chest: Positive for: Clear to Auscultation, Good Air Exchange Cardiovascular: Positive for: Regular Rate and Rhythm, Normal S1, S2 Abdomen: Positive for: Normal Bowel Sounds. Negative for: Tenderness, Distention Upper Extremity: Positive for: NORMAL PULSES Lower Extremity: Positive for: NORMAL PULSES, Neurovascularly Intact, Other ( tenderness over b/l hips to palpation) Neurological: Positive for: Speech Normal, Motor Func Grossly Intact Skin: Positive for: Warm, Dry Psychiatric: Positive for: Alert, Oriented x 3 - Medications Active Medications: Active Medications Generic Name Dose Route Start Last Admin Trade Name Freq PRN Reason Stop Dose Admin Diltiazem HCl 180 mg 08/08/16 10:45 08/08/16 11:00 Cardizem Cd PO 180 mg DAILY [facility] Administration Heparin Sodium (Porcine) 5,000 units 08/07/16 22:00 08/08/16 09:37 Heparin SC 5,000 units Q12 [facility] Administration Piperacillin Sod/Tazobactam 100 mls @ 200 mls/hr 08/07/16 18:45 08/08/16 11: 01 Sod 3.375 gm/ Sodium Chloride IVPB 08/10/16 18:45 200 mls/hr Q8H [facility] Administration Sodium Chloride 1,000 mls @ 100 mls/hr 08/07/16 18:45 08/08/16 12:46 Sodium Chloride 0.9% IV 100 mls/hr .Q10H [facility] Administration Oxycodone/Acetaminophen 1 tab 08/07/16 18:55 Percocet 5/325 Mg Tab PO 08/10/16 18:56 Q4H PRN Pain, moderate (4-7) Pantoprazole Sodium 40 mg 08/08/16 10:00 08/08/16 09:36 Protonix Inj IVP 40 mg DAILY [facility] Administration - Patient Studies Lab Studies: Microbiology Studies 08/07/16 Unknown Urine Culture - Final Urine,Catheterized No Growth (<1,000 CFU/ML) Lab Studies 08/08/16 08/08/16 08/08/16 Range/Units 06:28 06:28 04:00 WBC 12.8 H (4.8-10.8) K/uL RBC 3.78 L (3.80-5.20) Mil/uL Hgb 14.0 (11.0-16.0) g/dL Hct 42.4 (34.0-47.0) % MCV 112.1 H (81.0-99.0) fL MCH 37.2 H (27.0-31.0) pg MCHC 33.2 (33.0-37.0) g/dL RDW 18.1 H (11.5-14.5) % Plt Count 150 (130-400) K/uL MPV 10.2 (7.2-11.7) fL Neut % (Auto) 87.0 H (50.0-75.0) % Lymph % (Auto) 3.7 L (20.0-40.0) % [place] % (Auto) 9.0 (0.0-10.0) % Eos % (Auto) 0.0 (0.0-4.0) % Baso % (Auto) 0.3 (0.0-2.0) % Neut # 11.1 H (1.8-7.0) K/uL Lymph # 0.5 L (1.0-4.3) K/uL [place] # 1.2 H (0.0-0.8) K/uL Eos # 0.0 (0.0-0.7) K/uL Baso # 0.0 (0.0-0.2) K/uL Neutrophils % (Manual) 83 H (50-75) % Band Neutrophils % 5 H (0-2) % Lymphocytes % (Manual) 7 L (20-40) % Monocytes % (Manual) 5 (0-10) % Nucleated RBC % 1 H (0-0) % Platelet Estimate Normal (NORMAL) RBC Morphology Normal Sodium 141 (132-148) mmol/L Potassium 4.5 (3.6-5.2) mmol/L Chloride 109 H (98-107) mmol/L Carbon Dioxide 18 L (22-30) mmol/L Anion Gap 19 (10-20) BUN 53 H (7-17) mg/dL Creatinine 2.0 H (0.7-1.2) MG/DL Est GFR ( Amer) 29 Est GFR (Non-Af Amer) 24 Random Glucose 82 (65-105) mg/dL Lactic Acid 1.3 (0.7-2.1) mmol/L Calcium 7.0 L (8.6-10.4) mg/dl Phosphorus 5.1 H (2.5-4.5) mg/dL Magnesium 1.9 (1.6-2.3) mg/dL Total Bilirubin 0.8 (0.2-1.3) mg/dL AST 86 H (14-36) U/L ALT 73 H (9-52) U/L Alkaline Phosphatase 131 H D (38-126) U/L Total Protein 5.9 L (6.3-8.3) g/dL Albumin 2.8 L D (3.5-5.0) g/dL Globulin 3.1 (2.2-3.9) gm/dL Albumin/Globulin Ratio 0.9 L (1.0-2.1) Laboratory Results - last 24 hr 08/08/16 08/08/16 08/08/16 04:00 06:28 06:28 WBC 12.8 H RBC 3.78 L Hgb 14.0 Hct 42.4 MCV 112.1 H MCH 37.2 H MCHC 33.2 RDW 18.1 H Plt Count 150 MPV 10.2 Neut % (Auto) 87.0 H Lymph % (Auto) 3.7 L [place] % (Auto) 9.0 Eos % (Auto) 0.0 Baso % (Auto) 0.3 Neut # 11.1 H Lymph # 0.5 L [place] # 1.2 H Eos # 0.0 Baso # 0.0 Neutrophils % (Manual) 83 H Band Neutrophils % 5 H Lymphocytes % (Manual) 7 L Monocytes % (Manual) 5 Nucleated RBC % 1 H Platelet Estimate Normal RBC Morphology Normal Sodium 141 Potassium 4.5 Chloride 109 H Carbon Dioxide 18 L Anion Gap 19 BUN 53 H Creatinine 2.0 H Est GFR ( Amer) 29 Est GFR (Non-Af Amer) 24 Random Glucose 82 Lactic Acid 1.3 Calcium 7.0 L Phosphorus 5.1 H Magnesium 1.9 Total Bilirubin 0.8 AST 86 H ALT 73 H Alkaline Phosphatase 131 H D Total Protein 5.9 L Albumin 2.8 L D Globulin 3.1 Albumin/Globulin Ratio 0.9 L Review of Systems - Review of Systems All systems: reviewed and no additional remarkable complaints except (where noted in HPI) Critical Care Progress Note - Nutrition Nutrition: Nutrition Category Date Time Status Heart Healthy Diet [DIET] Diets 08/07/16 Dinner Active Assessment/Plan - Assessment and Plan (Free Text) Assessment: 76 yo F with right femoral neck fracture and possible fracture of left greater trochanter s/p trip/fall at home due to reported weakness. Plan: Neuro: Now AAOx3 Cont to monitor Cardiovascular: Hemodynamically stable Persistent tachycardia, irregularly irregular on monitor Pt was on Cardizem ER 180mg Daily, will restart Cardizem 10mg IVP Monitor Pulmonary: Saturating well, no respiratory distress Monitor Maintain sat > 90% Gastrointestinal: No acute issues Heart healthy diet Hematology: Hgb stable follow H/H Endocrine: No acute issues Allow for permissive hyperglycemia, avoid hypoglycemia Renal: Cr still elevated CPK elevated as well - ~1300 Continue IVF resuscitation with NS at 100 cc/hr Strict I/O Monitor urine output Musculoskeletal: Right femoral neck fracture Left greater trochanter fracture Ortho following - plan for OR on thursday tentatively Analgesia PRN - percocet Infectious Disease: Leukocytosis trending down Currently afebrile Cont Zosyn Blood and urine cultures collected - f/u GI Prophylaxis: Protonix DVT Prophylaxis: Heparin sc <Max Andrade - Last Filed: 08/08/16 15:23> CCU Objective - Vital Signs / Intake & Output Vital Signs (Last 4 hours): Vital Signs Temp Pulse Resp BP Pulse Ox 08/08/16 14:50 134 H 26 H 116/69 88 L 08/08/16 14:00 129 H 18 85 L 08/08/16 13:00 138 H 25 H 92 L 08/08/16 12:08 139 H 32 H 107/63 95 08/08/16 12:00 98 F 137 H 21 97 Intake and Output (Last 8hrs): Intake & Output 08/08/16 08/08/16 08/08/16 06:59 14:59 22:59 Intake Total 800 1225 Output Total 110 210 Balance 690 1015 Intake: Intake, IV Amount 800 800 Left Wrist 800 800 Oral 425 Output: Urine 110 210 Urethral (Martinez) 110 210 - Medications Active Medications: Active Medications Generic Name Dose Route Start Last Admin Trade Name Freq PRN Reason Stop Dose Admin Diltiazem HCl 180 mg 08/08/16 10:45 08/08/16 11:00 Cardizem Cd PO 180 mg DAILY [place] Administration Heparin Sodium (Porcine) 5,000 units 08/07/16 22:00 08/08/16 09:37 Heparin SC 5,000 units Q12 [facility] Administration Piperacillin Sod/Tazobactam 100 mls @ 200 mls/hr 08/07/16 18:45 08/08/16 11: 01 Sod 3.375 gm/ Sodium Chloride IVPB 08/10/16 18:45 200 mls/hr Q8H [facility] Administration Sodium Chloride 1,000 mls @ 100 mls/hr 08/07/16 18:45 08/08/16 15:17 Sodium Chloride 0.9% IV Not Given .Q10H [facility] Oxycodone/Acetaminophen 1 tab 08/07/16 18:55 Percocet 5/325 Mg Tab PO 08/10/16 18:56 Q4H PRN Pain, moderate (4-7) Pantoprazole Sodium 40 mg 08/08/16 10:00 08/08/16 09:36 Protonix Inj IVP 40 mg DAILY [place] Administration - Patient Studies Lab Studies: Microbiology Studies 08/07/16 Unknown Urine Culture - Final Urine,Catheterized No Growth (<1,000 CFU/ML) Lab Studies 08/08/16 08/08/16 08/08/16 Range/Units 06:28 06:28 04:00 WBC 12.8 H (4.8-10.8) K/uL RBC 3.78 L (3.80-5.20) Mil/uL Hgb 14.0 (11.0-16.0) g/dL Hct 42.4 (34.0-47.0) % MCV 112.1 H (81.0-99.0) fL MCH 37.2 H (27.0-31.0) pg MCHC 33.2 (33.0-37.0) g/dL RDW 18.1 H (11.5-14.5) % Plt Count 150 (130-400) K/uL MPV 10.2 (7.2-11.7) fL Neut % (Auto) 87.0 H (50.0-75.0) % Lymph % (Auto) 3.7 L (20.0-40.0) % [place] % (Auto) 9.0 (0.0-10.0) % Eos % (Auto) 0.0 (0.0-4.0) % Baso % (Auto) 0.3 (0.0-2.0) % Neut # 11.1 H (1.8-7.0) K/uL Lymph # 0.5 L (1.0-4.3) K/uL [place] # 1.2 H (0.0-0.8) K/uL Eos # 0.0 (0.0-0.7) K/uL Baso # 0.0 (0.0-0.2) K/uL Neutrophils % (Manual) 83 H (50-75) % Band Neutrophils % 5 H (0-2) % Lymphocytes % (Manual) 7 L (20-40) % Monocytes % (Manual) 5 (0-10) % Nucleated RBC % 1 H (0-0) % Platelet Estimate Normal (NORMAL) RBC Morphology Normal Sodium 141 (132-148) mmol/L Potassium 4.5 (3.6-5.2) mmol/L Chloride 109 H (98-107) mmol/L Carbon Dioxide 18 L (22-30) mmol/L Anion Gap 19 (10-20) BUN 53 H (7-17) mg/dL Creatinine 2.0 H (0.7-1.2) MG/DL Est GFR ( Amer) 29 Est GFR (Non-Af Amer) 24 Random Glucose 82 (65-105) mg/dL Lactic Acid 1.3 (0.7-2.1) mmol/L Calcium 7.0 L (8.6-10.4) mg/dl Phosphorus 5.1 H (2.5-4.5) mg/dL Magnesium 1.9 (1.6-2.3) mg/dL Total Bilirubin 0.8 (0.2-1.3) mg/dL AST 86 H (14-36) U/L ALT 73 H (9-52) U/L Alkaline Phosphatase 131 H D (38-126) U/L Total Protein 5.9 L (6.3-8.3) g/dL Albumin 2.8 L D (3.5-5.0) g/dL Globulin 3.1 (2.2-3.9) gm/dL Albumin/Globulin Ratio 0.9 L (1.0-2.1) Laboratory Results - last 24 hr 08/08/16 08/08/16 08/08/16 04:00 06:28 06:28 WBC 12.8 H RBC 3.78 L Hgb 14.0 Hct 42.4 MCV 112.1 H MCH 37.2 H MCHC 33.2 RDW 18.1 H Plt Count 150 MPV 10.2 Neut % (Auto) 87.0 H Lymph % (Auto) 3.7 L [place] % (Auto) 9.0 Eos % (Auto) 0.0 Baso % (Auto) 0.3 Neut # 11.1 H Lymph # 0.5 L [place] # 1.2 H Eos # 0.0 Baso # 0.0 Neutrophils % (Manual) 83 H Band Neutrophils % 5 H Lymphocytes % (Manual) 7 L Monocytes % (Manual) 5 Nucleated RBC % 1 H Platelet Estimate Normal RBC Morphology Normal Sodium 141 Potassium 4.5 Chloride 109 H Carbon Dioxide 18 L Anion Gap 19 BUN 53 H Creatinine 2.0 H Est GFR ( Amer) 29 Est GFR (Non-Af Amer) 24 Random Glucose 82 Lactic Acid 1.3 Calcium 7.0 L Phosphorus 5.1 H Magnesium 1.9 Total Bilirubin 0.8 AST 86 H ALT 73 H Alkaline Phosphatase 131 H D Total Protein 5.9 L Albumin 2.8 L D Globulin 3.1 Albumin/Globulin Ratio 0.9 L Critical Care Progress Note - Nutrition Nutrition: Nutrition Category Date Time Status Heart Healthy Diet [DIET] Diets 08/07/16 Dinner Active Attending/Attestation - Attestation I have personally seen and examined this patient.: Yes I have fully participated in the care of the patient.: Yes I have reviewed all pertinent clinical information: Yes Notes (Text): 08/08/16 15:19 I have seen and examined the patient. Medical records, lab studies, and imaging were reviewed by me and a management plan was formulated on multidisciplinary rounds with resident Dr. Barnett. I agree with their above documented assessment and plan. Afib is rate controlled on oral cardizem. Would only do a short course of abx, Zosyn x 3 days, unknown source of infection, WBC near normal. Dehydration improved s/p fluid resuscitation. Patient is clinically stable for downgrade to the floors. Critical Care Time 35 minutes. Multi-disciplinary rounds were performed with house staff, nursing, speech therapy, respiratory therapy, pharmacy and nutrition with integrated input from the primary team/attending and other consulting services. The documented time is cumulative and includes review of patient data/exams/labs/chart review and examination of the patient on rounds and throughout the day; time is exclusive of any procedures or teaching time. 08/08/16 15:20
--- NOTE | 2016-08-08 14:01 | RAD ---
HISTORY: knee swelling/fall COMPARISON: No prior FINDINGS: BONES: Normal. No fracture. Osteopenia. JOINTS: Normal. No osteoarthritis. SOFT TISSUE: Normal. OTHER FINDINGS: None . IMPRESSION: No fracture.
--- NOTE | 2016-08-08 21:49 | CP.PCM.PN ---
Subjective - Date & Time of Evaluation Date of Evaluation: 08/08/16 Time of Evaluation: 20:30 - Subjective Subjective: Patient is alert, oriented, in no acute distress. Feels better. BP: 105/60 HR: 124 irregular. Afebrile. Telemetry: sinus tachycardia with frequent PAC's. Objective - Vital Signs/Intake and Output Vital Signs (last 24 hours): Temp Pulse Resp BP Pulse Ox 97.5 F L 117 H 22 110/64 97 08/08/16 20:00 08/08/16 20:19 08/08/16 20:00 08/08/16 19:49 08/08/16 20:00 Intake and Output: 08/08/16 08/09/16 18:59 06:59 Intake Total 1725 Output Total 315 Balance 1410 - Medications Medications: Current Medications Diltiazem HCl (Cardizem Cd) 180 mg PO DAILY [facility] Last Admin: 08/08/16 11:00 Dose: 180 mg Heparin Sodium (Porcine) (Heparin) 5,000 units SC Q12 [facility] Last Admin: 08/08/16 21:42 Dose: 5,000 units Piperacillin Sod/Tazobactam (Sod 3.375 gm/ Sodium Chloride) 100 mls @ 200 mls/ hr IVPB Q8H [facility] Stop: 08/10/16 18:45 Last Admin: 08/08/16 17:51 Dose: 200 mls/hr Sodium Chloride (Sodium Chloride 0.9%) 1,000 mls @ 100 mls/hr IV .Q10H [facility] Last Admin: 08/08/16 15:17 Dose: Not Given Oxycodone/Acetaminophen (Percocet 5/325 Mg Tab) 1 tab PO Q4H PRN PRN Reason: Pain, moderate (4-7) Stop: 08/10/16 18:56 Pantoprazole Sodium (Protonix Inj) 40 mg IVP DAILY [facility] Last Admin: 08/08/16 09:36 Dose: 40 mg - Labs Labs: 08/08/16 06:28 08/08/16 06:28 PT 12.2 SECONDS (9.7-12.2) 08/07/16 14:43 INR 1.1 08/07/16 14:43 APTT 33 SECONDS (21-34) 08/07/16 14:43 - Constitutional Appears: No Acute Distress - Head Exam Head Exam: NORMAL INSPECTION - Eye Exam Additional comments: Left joaquín-orbital hematoma. - ENT Exam ENT Exam: Normal Exam - Neck Exam Neck Exam: Normal Inspection - Respiratory Exam Respiratory Exam: Clear to Ausculation Bilateral - Cardiovascular Exam Cardiovascular Exam: Tachycardia, Irregular Rhythm - GI/Abdominal Exam GI & Abdominal Exam: Soft, Normal Bowel Sounds - Rectal Exam Rectal Exam: Deferred - Extremities Exam Additional comments: Right leg external rotation. Tenderness both hips. - Back Exam Back Exam: NORMAL INSPECTION - Neurological Exam Neurological Exam: Alert, Awake, CN II-XII Intact, Oriented x3 - Psychiatric Exam Psychiatric exam: Anxious - Skin Skin Exam: Dry Additional comments: Mutiple excoriations of the arms, knees. Assessment and Plan (1) Closed fracture of greater trochanter of left femur Status: Acute (2) Displaced fracture of right femoral neck Status: Acute (3) Dehydration Assessment & Plan: Improving. Status: Acute (4) Sepsis Assessment & Plan: To continue IV antibiotics. Status: Acute (5) Fall Status: Acute (6) Arrhythmia Assessment & Plan: To put back on Cardizem when patient's BP improves. Status: Acute (7) Contusion of head Status: Acute
[2016-08-08] MEDS: Oxycodone/Acetaminophen 5/325 mg Tab PO PRN (22:30)
[2016-08-09] MEDS: Sodium Chloride 0.9% 1,000 ML IV SCH ×3 (02:50→21:47)
[2016-08-09] MEDS: Piperacillin/Tazobact 3.375 GM in Sodium Chloride 100 ML IVPB SCH ×3 (02:51→18:34)
[2016-08-09] MEDS: Oxycodone/Acetaminophen 5/325 mg Tab PO PRN ×3 (04:46→21:44)
--- NOTE | 2016-08-09 09:06 | CP.CCUPN ---
CCU Subjective - Physician Review Events Since Last Encounter (Free Text): 08/09/16 09:05 76-year-old female with a history of osteoporosis, osteoarthritis, history of hypertension admitted to the hospital with a fall and injury to the hips bilaterally. Patient had a history of recurrent fall, no complicated with unable to walk and unable to move to severe pain on bilateral hip. Now admitted with the bilateral hip fracture, associated with the severe pain. Patient is currently awake and responding. But she is in severe pain on both hips. General is to swelling noted. Denies any nausea. No vomiting noted. Patient is poorly taking food at this time poor intake noted. Patient also having irregular heartbeat, rhythm noted. On examination: Vital signs reviewed Chest good air entry bilaterally regular heart sound, nontender abdomen images edema noted bilaterally. Severe tenderness in the both hip region noted. Obesity is somewhat restricted because of the pain. Labs reviewed in X-ray reviewed CAT scan reviewed CCU Objective - Vital Signs / Intake & Output Vital Signs (Last 4 hours): Vital Signs Temp Pulse Resp BP Pulse Ox 08/09/16 08:10 92 H 08/09/16 08:00 97.9 F 71 16 92/59 L 95 08/09/16 07:00 92 H 8 L 95 08/09/16 06:00 72 8 L 97 08/09/16 05:06 125 H 17 90/63 L 97 Intake and Output (Last 8hrs): Intake & Output 08/08/16 08/09/16 08/09/16 22:59 06:59 14:59 Intake Total 500 1300 Output Total 105 300 Balance 395 1000 Intake: Intake, IV Amount 400 1250 Left Wrist 400 left wrist 1250 Oral 100 50 Output: Urine 105 300 Urethral (Martinez) 105 300 - Physical Exam Head: Positive for: Other (Contusions over left side of face) Pupils: Positive for: PERRL Extroacular Muscles: Positive for: EOMI Mouth: Positive for: Dry Respiratory/Chest: Positive for: Clear to Auscultation, Good Air Exchange Cardiovascular: Positive for: Regular Rate and Rhythm, Normal S1, S2 Abdomen: Positive for: Normal Bowel Sounds. Negative for: Tenderness, Distention Upper Extremity: Positive for: NORMAL PULSES Lower Extremity: Positive for: NORMAL PULSES, Neurovascularly Intact, Other ( tenderness over b/l hips to palpation) Neurological: Positive for: Speech Normal, Motor Func Grossly Intact Skin: Positive for: Warm, Dry Psychiatric: Positive for: Alert, Oriented x 3 - Medications Active Medications: Active Medications Generic Name Dose Route Start Last Admin Trade Name Freq PRN Reason Stop Dose Admin Acetaminophen 650 mg 08/09/16 09:02 Tylenol 325mg Tab PO Q6 PRN Pain, Mild (1-3) Diltiazem HCl 180 mg 08/08/16 10:45 08/08/16 11:00 Cardizem Cd PO 180 mg DAILY [facility] Administration Heparin Sodium (Porcine) 5,000 units 08/07/16 22:00 08/08/16 21:42 Heparin SC 5,000 units Q12 [facility] Administration Piperacillin Sod/Tazobactam 100 mls @ 200 mls/hr 08/07/16 18:45 08/09/16 02: 51 Sod 3.375 gm/ Sodium Chloride IVPB 08/10/16 18:45 200 mls/hr Q8H [facility] Administration Sodium Chloride 1,000 mls @ 100 mls/hr 08/07/16 18:45 08/09/16 02:50 Sodium Chloride 0.9% IV Not Given .Q10H [facility] Oxycodone/Acetaminophen 1 tab 08/09/16 09:02 Percocet 5/325 Mg Tab PO 08/12/16 14:01 Q8 PRN Pain, moderate (4-7) Pantoprazole Sodium 40 mg 08/08/16 10:00 08/08/16 09:36 Protonix Inj IVP 40 mg DAILY [place] Administration - Patient Studies Lab Studies: Microbiology Studies 08/07/16 Unknown Urine Culture - Final Urine,Catheterized No Growth (<1,000 CFU/ML) Critical Care Progress Note - Nutrition Nutrition: Nutrition Category Date Time Status Heart Healthy Diet [DIET] Diets 08/07/16 Dinner Active Assessment/Plan (1) Arrhythmia Current Visit: Yes Status: Acute (2) Closed fracture of greater trochanter of left femur Assessment and plan: 76-year-old female with history of osteoporosis, osteoarthritis, severe weakness and a recurrent fall, complicated with the bilateral hip fracture admitted to the hospital. Patient is currently having significant the weakness, and also associated pain secondary to the pain and fracture. Patient had a history of recurrent fall. Underlying neurological condition cannot be ruled out. She is at very high risk for DVT and pulmonary embolism. Currently on anticoagulation. Patient will need a definite treatment for the bilateral hip fracture. Awaiting cardiology clearance. Currently mobility is restricted because of the severe pain. pain control. We'll continue the current treatment and will follow the patient Current Visit: Yes Status: Acute (3) Contusion of head Current Visit: Yes Status: Acute (4) Fall Current Visit: Yes Status: Acute
[2016-08-09 09:35] LABS: BASO % 0.2 % (0.0-2.0); HEMOGLOBIN 12.8 g/dL (11.0-16.0); LYMPH # 0.4 K/uL (1.0-4.3); LYMPH % 3.4 % (20.0-40.0); MEAN CELL VOLUME 112.9 fL (81.0-99.0); MEAN CORPUSCULAR HEMOGLOBIN 36.7 pg (27.0-31.0); MEAN CORPUSCULAR HGB CONC 32.5 g/dL (33.0-37.0); MEAN PLATELET VOLUME 9.8 fL (7.2-11.7); MONO % 8.9 % (0.0-10.0); NEUT # 9.7 K/uL (1.8-7.0); NEUT % 87.5 % (50.0-75.0); NRBC % 0.1 % (0.0-2.0); PLATELET COUNT 138 K/uL (130-400); RBC 3.49 Mil/uL (3.80-5.20); RED CELL DISTRIBUTION WIDTH 18.1 % (11.5-14.5); WHITE BLOOD COUNT 11.1 K/uL (4.8-10.8)
[2016-08-09] MEDS: diltiaZEM 180 mg/24 Hours CD Cap PO SCH (09:35)
[2016-08-09 09:44] LABS: ALBUMIN 2.8 g/dL (3.5-5.0)
[2016-08-09 09:47] LABS: ALB/GLOB RATIO 0.9 (1.0-2.1)
[2016-08-09 09:48] LABS: CALCIUM 7.1 mg/dl (8.6-10.4)
[2016-08-09 10:01] LABS: BANDS 2 % (0-2); BASOPHIL 1 % (0-2); LYMPHOCYTE 2 % (20-40); MONOCYTE 7 % (0-10); NEUTROPHIL 88 % (50-75); PLATELET ESTIMATE NORMAL (NORMAL); TOTAL CELLS COUNTED 100
[2016-08-09 10:02] LABS: ANISOCYTOSIS SLIGHT; BURR CELLS SLIGHT
--- NOTE | 2016-08-09 12:10 | CP.PCM.PN ---
Subjective - Date & Time of Evaluation Date of Evaluation: 08/09/16 Time of Evaluation: 12:00 - Subjective Subjective: S- pt awake alert and orented complains of primarily R hip pain/although L hip is marginally painful as well Objective - Vital Signs/Intake and Output Vital Signs (last 24 hours): Temp Pulse Resp BP Pulse Ox 97.9 F 91 H 23 86/52 L 94 L 08/09/16 08:00 08/09/16 09:31 08/09/16 09:31 08/09/16 09:31 08/09/16 09:31 Intake and Output: 08/09/16 08/09/16 06:59 18:59 Intake Total 1300 80 Output Total 300 30 Balance 1000 50 - Medications Medications: Current Medications Acetaminophen (Tylenol 325mg Tab) 650 mg PO Q6 PRN PRN Reason: Pain, Mild (1-3) Diltiazem HCl (Cardizem) 30 mg PO QID [facility] Last Admin: 08/09/16 09:57 Dose: Not Given Heparin Sodium (Porcine) (Heparin) 5,000 units SC Q8 [facility] Piperacillin Sod/Tazobactam (Sod 3.375 gm/ Sodium Chloride) 100 mls @ 200 mls/ hr IVPB Q8H [facility] Stop: 08/10/16 18:45 Last Admin: 08/09/16 09:49 Dose: 200 mls/hr Sodium Chloride (Sodium Chloride 0.9%) 1,000 mls @ 100 mls/hr IV .Q10H [facility] Last Admin: 08/09/16 10:32 Dose: 100 mls/hr Oxycodone/Acetaminophen (Percocet 5/325 Mg Tab) 1 tab PO Q8 PRN PRN Reason: Pain, moderate (4-7) Stop: 08/12/16 14:01 Pantoprazole Sodium (Protonix Inj) 40 mg IVP DAILY [facility] Last Admin: 08/09/16 09:32 Dose: 40 mg - Labs Labs: 08/09/16 09:28 08/09/16 09:28 PT 12.2 SECONDS (9.7-12.2) 08/07/16 14:43 INR 1.1 08/07/16 14:43 APTT 33 SECONDS (21-34) 08/07/16 14:43 - Additional Findings Additional findings: Objective systemic- constituional- awake and aler HEENT: pt with eccymosis and swelling about face remqinddr of systemic exam 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) Musculoskeletal exam stance/gait- defrred pt with shortening and external rotation R hip + ecchymosis + tenderness to heel percussion L hip ROM restroicted and trochanteric prominence tender N/V intact (grossly) bilaterALLY Assessment and Plan - Assessment and Plan (Free Text) Assessment: A- bASICERVICAL r FEMORAL NECK FX oSTEOARTHRITIS r HIP ( PREEXISTING) GREATER TROCHANTERIC FX l HIP o/a l HIP ( PREEXISTING) P- awaiting results of Doppler study question of sepsis raised- however recent blood cultures are negative pros cons riska nd benfits of hip replacement for fracture discussed at length with pt/ awaiting medical clearance for OR Thursday for primary THR
--- NOTE | 2016-08-09 18:33 | CARD ---
APPROVED REPORT EXAM: Two-dimensional and M-mode echocardiogram with Doppler and color Doppler. Other Information Quality : GoodRhythm : INDICATION Abnormal EKG/Arrhythmia SEPSIS,HYPOTENSION M-Mode DIMENSIONS RVDd1.20 (2.1-3.2cm)Left Atrium (MM)3.55 (2.5-4.0cm) IVSd0.52 (0.7-1.1cm)Aortic Root2.31 (2.2-3.7cm) LVDd5.05 (4.0-5.6cm)Aortic Cusp Exc.1.11 (1.5-2.0cm) PWd0.73 (0.7-1.1cm)FS (%) 12 % LVDs4.45 (2.0-3.8cm)LVEF (%)26 (>50%) Mitral Valve MV E Ykebbrco07.8cm/sMV A Jkxdqeeg553.3cm/sE/A ratio0.4 TDI E/Lateral E'0.0E/Medial E'0.0 Tricuspid Valve TR Peak Rlcwayyz074wd/sTR Peak Gr.[id number] LEFT VENTRICLE The Left Ventricle is mildly dilated. There is normal left ventricular wall thickness. Left ventricle systolic function is severely impaired. The Ejection Fraction is 25-30%. Global hypokinesia, more pronounced in the anteroseptal area Transmitral Doppler flow pattern is Grade I-abnormal relaxation pattern. There is no ventricular septal defect visualized. RIGHT VENTRICLE The right ventricle is normal size. The right ventricular systolic function is normal. ATRIA The left atrium is mildly dilated. The right atrium size is normal. AORTIC VALVE The aortic valve is mildly sclerotic. The aortic valve is tri-cuspid. No aortic regurgitation is present. There is no aortic valvular stenosis. MITRAL VALVE The mitral valve leaflets are thickened. Mitral annular calcification is borderline. There is no evidence of mitral valve prolapse. Mitral regurgitation is moderate to severe. TRICUSPID VALVE The tricuspid valve is normal in structure. There is mild to moderate tricuspid regurgitation. Right ventricular systolic pressure is estimated at 30-40 mmHg. There is mild pulmonary hypertension. PULMONIC VALVE The pulmonic valve is not well visualized. There is no pulmonic valvular regurgitation. GREAT VESSELS Dilated inferior vena cava with decreased respiratory variation PERICARDIAL EFFUSION There is no pericardial effusion. <Conclusion> Left ventricle systolic function is severely impaired. The Ejection Fraction is 25-30%. Global hypokinesia, more pronounced in the anteroseptal area Transmitral Doppler flow pattern is Grade I-abnormal relaxation pattern. Mitral regurgitation is moderate to severe. There is mild pulmonary hypertension.
--- NOTE | 2016-08-09 21:40 | CP.PCM.PN ---
Subjective - Date & Time of Evaluation Date of Evaluation: 08/09/16 Time of Evaluation: 13:00 - Subjective Subjective: Patient is alert, oriented but still very tired. BP: 101/60 HR 94 irregular. Telemetry: sinus rhythm with runs of SVT. Echocardiogram: global hypokinesia of the LV with moderate MR. Blood and urine cultures were negative. Objective - Vital Signs/Intake and Output Vital Signs (last 24 hours): Temp Pulse Resp BP Pulse Ox 97.9 F 85 13 102/69 93 L 08/09/16 16:00 08/09/16 20:00 08/09/16 20:00 08/09/16 19:55 08/09/16 20:00 Intake and Output: 08/09/16 08/10/16 18:59 06:59 Intake Total 1610 Output Total 330 Balance 1280 - Medications Medications: Current Medications Acetaminophen (Tylenol 325mg Tab) 650 mg PO Q6 PRN PRN Reason: Pain, Mild (1-3) Diltiazem HCl (Cardizem) 30 mg PO QID [facility] Last Admin: 08/09/16 18:36 Dose: Not Given Heparin Sodium (Porcine) (Heparin) 5,000 units SC Q8 [facility] Last Admin: 08/09/16 14:15 Dose: 5,000 units Piperacillin Sod/Tazobactam (Sod 3.375 gm/ Sodium Chloride) 100 mls @ 200 mls/ hr IVPB Q8H [facility] Stop: 08/10/16 18:45 Last Admin: 08/09/16 18:34 Dose: 200 mls/hr Sodium Chloride (Sodium Chloride 0.9%) 1,000 mls @ 100 mls/hr IV .Q10H [facility] Last Admin: 08/09/16 10:32 Dose: 100 mls/hr Oxycodone/Acetaminophen (Percocet 5/325 Mg Tab) 1 tab PO Q8 PRN PRN Reason: Pain, moderate (4-7) Stop: 08/12/16 14:01 Last Admin: 08/09/16 12:54 Dose: 1 tab Pantoprazole Sodium (Protonix Inj) 40 mg IVP DAILY [facility] Last Admin: 08/09/16 09:32 Dose: 40 mg - Labs Labs: 08/09/16 09:28 08/09/16 09:28 PT 12.2 SECONDS (9.7-12.2) 08/07/16 14:43 INR 1.1 08/07/16 14:43 APTT 33 SECONDS (21-34) 08/07/16 14:43 - Constitutional Appears: No Acute Distress, Chronically Ill - Head Exam Head Exam: NORMAL INSPECTION - Eye Exam Eye Exam: Normal appearance - ENT Exam ENT Exam: Normal Exam - Neck Exam Neck Exam: Normal Inspection - Respiratory Exam Respiratory Exam: Clear to Ausculation Bilateral - Cardiovascular Exam Cardiovascular Exam: Irregular Rhythm - GI/Abdominal Exam GI & Abdominal Exam: Soft, Normal Bowel Sounds - Rectal Exam Rectal Exam: Deferred - Extremities Exam Extremities Exam: Normal Inspection - Back Exam Back Exam: NORMAL INSPECTION - Neurological Exam Neurological Exam: Alert, Awake, Oriented x3 - Psychiatric Exam Psychiatric exam: Anxious - Skin Skin Exam: Dry, Intact, Normal Color, Warm Assessment and Plan (1) Closed fracture of greater trochanter of left femur Status: Acute (2) Displaced fracture of right femoral neck Assessment & Plan: To continue DVT prophylaxis with Heparin. Status: Acute (3) Dehydration Assessment & Plan: To continue IV NS. Status: Acute (4) Sepsis Assessment & Plan: To continue IV antibiotics. Status: Acute (5) Fall Status: Acute (6) Arrhythmia Status: Acute (7) Contusion of head Status: Acute
[2016-08-10 01:32] LABS: ABG ALLEN TEST POS; ARTERIAL BLOOD GAS HCO3 20.7 mmol/L (21-28); ARTERIAL BLOOD GAS O2 SAT 98.1 % (95-98); ARTERIAL BLOOD GAS PCO2 44 mm/Hg (35-45); ARTERIAL BLOOD GAS PH 7.29 (7.35-7.45); ARTERIAL BLOOD GAS PO2 82 mm/Hg (80-100); ARTERIAL BLOOD GAS TCO2 22.6 mmol/L (22-28)
--- NOTE | 2016-08-10 01:42 | RAD ---
EXAM: XR Chest, 1 View CLINICAL HISTORY: 76 years old, female; Signs and symptoms; Other: Desaturation TECHNIQUE: Frontal view of the chest. EXAM DATE/TIME: 08/10/2016 1:00 AM COMPARISON: There are no prior studies for comparison. FINDINGS: Heart: The heart is mildly enlarged. Mediastinum: There are calcifications in the aortic knob. Hilar contours are not well visualized. Vascularity: Pulmonary vascularity is normal. Lungs and pleural spaces: There are bilateral pleural effusions. There are basilar opacities greatest in the left. Osseous structures: Bony structures are osteopenic with degenerative change. Impression: Cardiomegaly and atherosclerotic disease; bilateral pleural effusions with basilar opacities atelectasis and/or infiltrate, findings greatest on the left
[2016-08-10 01:56] LABS: BASO % 0.4 % (0.0-2.0); HEMOGLOBIN 11.8 g/dL (11.0-16.0); LYMPH # 0.3 K/uL (1.0-4.3); LYMPH % 3.2 % (20.0-40.0); MEAN CELL VOLUME 114.4 fL (81.0-99.0); MEAN CORPUSCULAR HGB CONC 32.4 g/dL (33.0-37.0); MONO # 1.1 K/uL (0.0-0.8); MONO % 10.1 % (0.0-10.0); NEUT # 9.4 K/uL (1.8-7.0); NEUT % 86.3 % (50.0-75.0); NRBC % 0.2 % (0.0-2.0); PLATELET COUNT 130 K/uL (130-400); RED CELL DISTRIBUTION WIDTH 18.1 % (11.5-14.5); WHITE BLOOD COUNT 10.8 K/uL (4.8-10.8)
[2016-08-10 02:03] LABS: PROTHROMBIN TIME 11.6 SECONDS (9.7-12.2)
[2016-08-10 02:17] LABS: ALBUMIN 2.7 g/dL (3.5-5.0)
[2016-08-10 02:18] LABS: ALB/GLOB RATIO 0.9 (1.0-2.1); CALCIUM 7.2 mg/dl (8.6-10.4)
[2016-08-10 02:27] LABS: BANDS 3 % (0-2); EOSINOPHIL 1 % (0-4); LYMPHOCYTE 2 % (20-40); MONOCYTE 8 % (0-10); NEUTROPHIL 86 % (50-75); PLATELET ESTIMATE NORMAL (NORMAL); TOTAL CELLS COUNTED 100
[2016-08-10 02:28] LABS: ANISOCYTOSIS SLIGHT
[2016-08-10] MEDS: Piperacillin/Tazobact 3.375 GM in Sodium Chloride 100 ML IVPB SCH ×3 (02:38→17:47)
[2016-08-10] MEDS: Heparin25000 units/250ml 1/2NS 25,000 UNITS/250 ML BAG IV PRN (02:40)
[2016-08-10] MEDS: Oxycodone/Acetaminophen 5/325 mg Tab PO PRN (05:40)
--- NOTE | 2016-08-10 07:04 | CP.PCM.PN ---
Subjective - Date & Time of Evaluation Date of Evaluation: 08/10/16 Time of Evaluation: 01:30 - Subjective Subjective: Patient evaluated as hypoxia noticed by nurse needing NRB 100% form 3 lit NC, patient admitted with right displaced and left mininmal displaced hip fracture, h/o CHF ef 25% on ivf for dehydration. Patient examined, CXR and ABG ordered, patient arousable but in pain, 1+ edema in right leg, otherwise skin dry, reduced torgur, Chest reduced air entry in both basis, not sob on NRB, no orthopenia. ABG confirmed hypoxia of 82 on NRB, CXR appeared minimal atelectesis in both baisis, not chf picture. With above DD of atelectesis vs PE, patient was on prophylactic heparin, ptt was therapeutic, hence heparin drip without bolus started, venous doppler repeat study ordered, CTA could not be done due to renal insufficiency, V/q scan could be done later in the day. Patient transferred back to ICU, primary team and icu team will be notified. Objective - Vital Signs/Intake and Output Vital Signs (last 24 hours): Temp Pulse Resp BP Pulse Ox 98.5 F 107 H 7 L 97/73 L 95 08/10/16 00:00 08/10/16 05:25 08/10/16 01:00 08/10/16 00:21 08/10/16 01:00 Intake and Output: 08/09/16 08/10/16 18:59 06:59 Intake Total 1610 Output Total 330 Balance 1280 - Medications Medications: Current Medications Acetaminophen (Tylenol 325mg Tab) 650 mg PO Q6 PRN PRN Reason: Pain, Mild (1-3) Diltiazem HCl (Cardizem) 30 mg PO QID [facility] Last Admin: 08/09/16 22:00 Dose: Not Given Piperacillin Sod/Tazobactam (Sod 3.375 gm/ Sodium Chloride) 100 mls @ 200 mls/ hr IVPB Q8H [facility] Stop: 08/10/16 18:45 Last Admin: 08/10/16 02:38 Dose: 200 mls/hr Sodium Chloride (Sodium Chloride 0.9%) 1,000 mls @ 100 mls/hr IV .Q10H [facility] Last Admin: 08/09/16 21:47 Dose: 100 mls/hr Heparin Sodium/Sodium Chloride (Heparin 08916 Units/250ml 1/2 Normal Saline) 25 ,000 units in 250 mls @ 6.423 mls/hr IV .Q24H PRN; Protocol; 12 UNITS/KG/HR PRN Reason: PROTOCOL Last Admin: 08/10/16 02:40 Dose: 12 units/kg/hr, 6.423 mls/hr Oxycodone/Acetaminophen (Percocet 5/325 Mg Tab) 1 tab PO Q8 PRN PRN Reason: Pain, moderate (4-7) Stop: 08/12/16 14:01 Last Admin: 08/10/16 05:40 Dose: 1 tab Pantoprazole Sodium (Protonix Inj) 40 mg IVP DAILY [facility] Last Admin: 08/09/16 09:32 Dose: 40 mg - Labs Labs: 08/10/16 01:53 08/10/16 01:53 PT 11.6 SECONDS (9.7-12.2) 08/10/16 01:53 INR 1.0 08/10/16 01:53 APTT 63 SECONDS (21-34) H D 08/10/16 01:53
[2016-08-10 10:22] LABS: ABG ALLEN TEST POS; ARTERIAL BLOOD GAS HCO3 19.5 mmol/L (21-28); ARTERIAL BLOOD GAS O2 SAT 97.6 % (95-98); ARTERIAL BLOOD GAS PCO2 45 mm/Hg (35-45); ARTERIAL BLOOD GAS PH 7.26 (7.35-7.45); ARTERIAL BLOOD GAS PO2 80 mm/Hg (80-100); ARTERIAL BLOOD GAS TCO2 21.6 mmol/L (22-28)
[2016-08-10] MEDS ORDERED: Digoxin 500 mcg/2ml (0.5 mg/2ml) Inj IVP STA (10:46)
--- NOTE | 2016-08-10 11:32 | CP.PCM.PN ---
Subjective - Date & Time of Evaluation Date of Evaluation: 08/10/16 Time of Evaluation: 11:25 - Subjective Subjective: S- pt complains of severe and persistent R hip pain PT WISHES SURG TO BE ACCOMPLISHED [facility]!! Objective - Vital Signs/Intake and Output Vital Signs (last 24 hours): Temp Pulse Resp BP Pulse Ox 98 F 121 H 20 109/61 95 08/10/16 04:00 08/10/16 07:00 08/10/16 07:00 08/10/16 11:00 08/10/16 07:00 Intake and Output: 08/10/16 08/10/16 06:59 18:59 Intake Total 1382.0 Output Total 300 Balance 1082.0 - Medications Medications: Current Medications Acetaminophen (Tylenol 325mg Tab) 650 mg PO Q6 PRN PRN Reason: Pain, Mild (1-3) Last Admin: 08/10/16 10:20 Dose: 650 mg Piperacillin Sod/Tazobactam (Sod 3.375 gm/ Sodium Chloride) 100 mls @ 200 mls/ hr IVPB Q8H [facility] Stop: 08/10/16 18:45 Last Admin: 08/10/16 10:18 Dose: 200 mls/hr Heparin Sodium/Sodium Chloride (Heparin 48876 Units/250ml 1/2 Normal Saline) 25 ,000 units in 250 mls @ 6.423 mls/hr IV .Q24H PRN; Protocol; 12 UNITS/KG/HR PRN Reason: PROTOCOL Last Admin: 08/10/16 02:40 Dose: 12 units/kg/hr, 6.423 mls/hr Pantoprazole Sodium (Protonix Inj) 40 mg IVP DAILY [facility] Last Admin: 08/10/16 10:19 Dose: 40 mg - Labs Labs: 08/10/16 01:53 08/10/16 01:53 PT 11.6 SECONDS (9.7-12.2) 08/10/16 01:53 INR 1.0 08/10/16 01:53 APTT 91 SECONDS (21-34) H D 08/10/16 08:43 - Skin Additional comments: Objective systemic HEENT - imp[roved/ecchymosis resolving remainder of systemic O/E as per /Dr Rodriguez/ hospitalist Musculoskekeltal stance/gait- defrred pt with shortening and external rotation R lower ext ecchymosis rrsolving L hip tender minimally in region of grewater trochanter Xray- displaced subcapital r femoral neck fx/ superimooised on O/A R hip L greater troch fx L femur ( to be treated non op) Assessment and Plan - Assessment and Plan (Free Text) Assessment: A- displaced/ subcapital fx R hip/ fx greater troch L hip P-situation discussed with Dr Rodriguez/ apparently, pt had sustained fluid overload. Dr rodriguez states that if pt improves/ today- then R hip surgery will be accomplished tomorrow Pros, cons risks and benfits discussed at length Possibility of mechanical failure/ infection, thromboembolic disease secondary or tertiary surgery discussed NO PROMISES Guarantees informed consent obtained , pt is Monegasque speaking and totally comprehends
[2016-08-10] MEDS ORDERED: Bisacodyl 5mg EC Tab PO STA (17:15)
--- NOTE | 2016-08-10 20:07 | CP.PCM.PN ---
Subjective - Date & Time of Evaluation Date of Evaluation: 08/10/16 Time of Evaluation: 16:30 - Subjective Subjective: Patient experienced SOB with desaturation early this AM. CXR revealed bilateral pleural effusion. Venous scan of the lower extremities was negative for acute DVT. Patient was put on BIPAP, was given. Lasix 20 mg IV x 2 with good diuresis , Diltiazem discontinued. Now has no complaint of SOB, is saturating at 96% on 40% VM. BP: 110 /60, HR: 90 regular. Afebrile. Will repeat BMP tonight and order Lasix to [facility]. Objective - Vital Signs/Intake and Output Vital Signs (last 24 hours): Temp Pulse Resp BP Pulse Ox 97.6 F 110 H 18 103/61 95 08/10/16 16:00 08/10/16 19:00 08/10/16 19:00 08/10/16 18:45 08/10/16 19:00 Intake and Output: 08/10/16 08/11/16 18:59 06:59 Intake Total 944.0 106.4 Output Total 1625 575 Balance -681.0 -468.6 - Medications Medications: Current Medications Acetaminophen (Tylenol 325mg Tab) 650 mg PO Q6 PRN PRN Reason: Pain, Mild (1-3) Last Admin: 08/10/16 18:02 Dose: 650 mg Heparin Sodium/Sodium Chloride (Heparin 23448 Units/250ml 1/2 Normal Saline) 25 ,000 units in 250 mls @ 6.423 mls/hr IV .Q24H PRN; Protocol; 12 UNITS/KG/HR PRN Reason: PROTOCOL Last Admin: 08/10/16 02:40 Dose: 12 units/kg/hr, 6.423 mls/hr Pantoprazole Sodium (Protonix Inj) 40 mg IVP DAILY [facility] Last Admin: 08/10/16 10:19 Dose: 40 mg - Labs Labs: 08/10/16 01:53 08/10/16 01:53 PT 11.6 SECONDS (9.7-12.2) 08/10/16 01:53 INR 1.0 08/10/16 01:53 APTT 91 SECONDS (21-34) H D 08/10/16 08:43 - Constitutional Appears: No Acute Distress - Head Exam Head Exam: NORMAL INSPECTION - Eye Exam Eye Exam: Normal appearance - ENT Exam ENT Exam: Normal Exam - Neck Exam Neck Exam: Normal Inspection - Respiratory Exam Additional comments: Rales at both bases. - Cardiovascular Exam Cardiovascular Exam: Irregular Rhythm - GI/Abdominal Exam GI & Abdominal Exam: Soft, Normal Bowel Sounds - Rectal Exam Rectal Exam: Deferred - Extremities Exam Additional comments: Tender both hips. External rotation of the right leg. - Back Exam Back Exam: NORMAL INSPECTION - Neurological Exam Neurological Exam: Alert, Awake, CN II-XII Intact, Oriented x3 - Psychiatric Exam Psychiatric exam: Anxious - Skin Skin Exam: Dry, Intact, Normal Color, Warm Assessment and Plan (1) Closed fracture of greater trochanter of left femur Status: Acute (2) Displaced fracture of right femoral neck Assessment & Plan: For a right hip replacement when cardiac status is more stable. Status: Acute (3) Dehydration Status: Acute (4) Sepsis Assessment & Plan: So far all blood and urine cultures are negative. Serum lactic acid is normal today. Status: Acute (5) Fall Status: Acute (6) Arrhythmia Assessment & Plan: To continue Digoxin. Status: Acute (7) Contusion of head Status: Acute
[2016-08-10 20:55] LABS: GFR AFRICAN-AMERICAN > 60; GFR NON-AFRICAN AMERICAN > 60
[2016-08-10 20:56] LABS: BLOOD UREA NITROGEN 30 mg/dL (7-17); CALCIUM 6.3 mg/dl (8.6-10.4)
--- NOTE | 2016-08-10 22:30 | CP.CCUPN ---
CCU Subjective - Physician Review Events Since Last Encounter (Free Text): 08/10/16 22:28 76-year-old female with a history of osteoporosis, osteoarthritis, history of hypertension admitted to the hospital with a fall and injury to the hips bilaterally. Patient had a history of recurrent fall, no complicated with unable to walk and unable to move to severe pain on bilateral hip. Now admitted with the bilateral hip fracture, associated with the severe pain. Patient is currently awake and responding. But she is in severe pain on both hips. General is to swelling noted. Denies any nausea. No vomiting noted. Patient is poorly taking food at this time poor intake noted. Patient also having irregular heartbeat, rhythm noted. On examination: Vital signs reviewed Chest good air entry bilaterally regular heart sound, nontender abdomen images edema noted bilaterally. Severe tenderness in the both hip region noted. Obesity is somewhat restricted because of the pain. Labs reviewed in X-ray reviewed CAT scan reviewed This morning patient was having shortness of breath. Placed on BiPAP. Wasn't somewhat respiratory distress noted. Also having some difficulty in breathing CCU Objective - Vital Signs / Intake & Output Vital Signs (Last 4 hours): Vital Signs Temp Pulse Resp BP Pulse Ox 08/10/16 22:00 82 20 98 08/10/16 21:45 93 H 22 111/53 L 98 08/10/16 21:00 88 20 98 08/10/16 20:45 105 H 13 112/55 L 97 08/10/16 20:03 90 20 125/62 95 08/10/16 20:00 97.4 F L 102 H 13 97 08/10/16 19:48 93 H 17 163/146 H 97 08/10/16 19:00 110 H 18 95 08/10/16 18:45 101 H 22 103/61 96 Vital signs reviewed No neck vein distention noted CVS regular heart sound, no murmur noted bilateral rales and wheezing noted in the lungs edema in the legs noted Intake and Output (Last 8hrs): Intake & Output 08/10/16 08/10/16 08/10/16 06:59 14:59 22:59 Intake Total 1382.0 478.4 831.2 Output Total 924 037 1797 Balance 1082.0 -446.6 -658.8 Intake: Intake, IV Amount 1332.0 138.4 151.2 Left Wrist 1300 100 100 left wrist 2nd port 32.0 38.4 51.2 Oral 50 340 680 Output: Urine [phone] Urethral (Martinez) [phone] - Physical Exam Head: Positive for: Other (Contusions over left side of face) Pupils: Positive for: PERRL Extroacular Muscles: Positive for: EOMI Mouth: Positive for: Dry Respiratory/Chest: Positive for: Clear to Auscultation, Good Air Exchange Cardiovascular: Positive for: Regular Rate and Rhythm, Normal S1, S2 Abdomen: Positive for: Normal Bowel Sounds. Negative for: Tenderness, Distention Upper Extremity: Positive for: NORMAL PULSES Lower Extremity: Positive for: NORMAL PULSES, Neurovascularly Intact, Other ( tenderness over b/l hips to palpation) Neurological: Positive for: Speech Normal, Motor Func Grossly Intact Skin: Positive for: Warm, Dry Psychiatric: Positive for: Alert, Oriented x 3 - Medications Active Medications: Active Medications Generic Name Dose Route Start Last Admin Trade Name Freq PRN Reason Stop Dose Admin Acetaminophen 650 mg 08/09/16 09:02 08/10/16 18:02 Tylenol 325mg Tab PO 650 mg Q6 PRN Administration Pain, Mild (1-3) Furosemide 40 mg 08/11/16 07:00 Lasix IVP DAILY [facility] Heparin Sodium/Sodium Chloride 25,000 units in 250 mls @ 6.423 mls/hr 02:20 08/10/16 02:40 Heparin 42896 Units/250ml 1/2 Normal Saline IV 12 units/kg/hr .Q24H PRN 6.423 mls/hr PROTOCOL Administration Protocol 12 UNITS/KG/HR Pantoprazole Sodium 40 mg 08/08/16 10:00 08/10/16 10:19 Protonix Inj IVP 40 mg DAILY [facility] Administration - Patient Studies Lab Studies: Lab Studies 08/10/16 08/10/16 08/10/16 Range/Units 20:37 12:24 09:20 WBC (4.8-10.8) K/uL RBC (3.80-5.20) Mil/uL Hgb (11.0-16.0) g/dL Hct (34.0-47.0) % MCV (81.0-99.0) fL MCH (27.0-31.0) pg MCHC (33.0-37.0) g/dL RDW (11.5-14.5) % Plt Count (130-400) K/uL MPV (7.2-11.7) fL Neut % (Auto) (50.0-75.0) % Lymph % (Auto) (20.0-40.0) % [place] % (Auto) (0.0-10.0) % Eos % (Auto) (0.0-4.0) % Baso % (Auto) (0.0-2.0) % Neut # (1.8-7.0) K/uL Lymph # (1.0-4.3) K/uL [place] # (0.0-0.8) K/uL Eos # (0.0-0.7) K/uL Baso # (0.0-0.2) K/uL Neutrophils % (Manual) (50-75) % Band Neutrophils % (0-2) % Lymphocytes % (Manual) (20-40) % Monocytes % (Manual) (0-10) % Eosinophils % (Manual) (0-4) % Platelet Estimate (NORMAL) Anisocytosis (manual) Macrocytosis (manual) PT (9.7-12.2) SECONDS INR APTT (21-34) SECONDS Puncture Site Rradial pCO2 45 (35-45) mm/Hg pO2 80 (80-100) mm/Hg HCO3 19.5 L (21-28) mmol/L ABG pH 7.26 L (7.35-7.45) ABG Total CO2 21.6 L (22-28) mmol/L ABG O2 Saturation 97.6 (95-98) % ABG Base Excess -6.8 L (-2.0-3.0) mmol/L Seng Test Pos ABG Potassium 3.8 (3.6-5.2) mmol/L A-a O2 Difference 363.0 mm/Hg Respiratory Index 4.5 Sodium 143 146.0 (132-148) mmol/l Chloride 116 H 121.0 H (98-107) mmol/L Glucose 102 (65-105) mg/dl Lactate 0.8 (0.7-2.1) mmol/L Liter Flow Mechanical Rate 14 FiO2 70.0 % Inspiratory BiPAP 10 Expiratory BiPAP 5 Potassium 3.9 (3.6-5.2) mmol/L Carbon Dioxide 21 L (22-30) mmol/L Anion Gap 10 (10-20) BUN 30 H (7-17) mg/dL Creatinine 0.9 (0.7-1.2) MG/DL Est GFR ( Amer) > 60 Est GFR (Non-Af Amer) > 60 Random Glucose 103 (65-105) mg/dL Calcium 6.3 L (8.6-10.4) mg/dl Phosphorus (2.5-4.5) mg/dL Magnesium (1.6-2.3) mg/dL Total Bilirubin (0.2-1.3) mg/dL AST (14-36) U/L ALT (9-52) U/L Alkaline Phosphatase (38-126) U/L NT-Pro-B Natriuret Pep 22159 H (0-900) pg/mL Total Protein (6.3-8.3) g/dL Albumin (3.5-5.0) g/dL Globulin (2.2-3.9) gm/dL Albumin/Globulin Ratio (1.0-2.1) Arterial Blood Potassium 3.8 (3.6-5.2) mmol/L 08/10/16 08/10/16 08/10/16 Range/Units 08:43 01:53 01:53 WBC (4.8-10.8) K/uL RBC (3.80-5.20) Mil/uL Hgb (11.0-16.0) g/dL Hct (34.0-47.0) % MCV (81.0-99.0) fL MCH (27.0-31.0) pg MCHC (33.0-37.0) g/dL RDW (11.5-14.5) % Plt Count (130-400) K/uL MPV (7.2-11.7) fL Neut % (Auto) (50.0-75.0) % Lymph % (Auto) (20.0-40.0) % [place] % (Auto) (0.0-10.0) % Eos % (Auto) (0.0-4.0) % Baso % (Auto) (0.0-2.0) % Neut # (1.8-7.0) K/uL Lymph # (1.0-4.3) K/uL [place] # (0.0-0.8) K/uL Eos # (0.0-0.7) K/uL Baso # (0.0-0.2) K/uL Neutrophils % (Manual) (50-75) % Band Neutrophils % (0-2) % Lymphocytes % (Manual) (20-40) % Monocytes % (Manual) (0-10) % Eosinophils % (Manual) (0-4) % Platelet Estimate (NORMAL) Anisocytosis (manual) Macrocytosis (manual) PT 11.6 (9.7-12.2) SECONDS INR 1.0 APTT 91 H D 63 H D (21-34) SECONDS Puncture Site pCO2 (35-45) mm/Hg pO2 (80-100) mm/Hg HCO3 (21-28) mmol/L ABG pH (7.35-7.45) ABG Total CO2 (22-28) mmol/L ABG O2 Saturation (95-98) % ABG Base Excess (-2.0-3.0) mmol/L Seng Test ABG Potassium (3.6-5.2) mmol/L A-a O2 Difference mm/Hg Respiratory Index Sodium 142 (132-148) mmol/l Chloride 117 H (98-107) mmol/L Glucose (65-105) mg/dl Lactate (0.7-2.1) mmol/L Liter Flow Mechanical Rate FiO2 % Inspiratory BiPAP Expiratory BiPAP Potassium 4.2 (3.6-5.2) mmol/L Carbon Dioxide 20 L (22-30) mmol/L Anion Gap 9 L (10-20) BUN 41 H (7-17) mg/dL Creatinine 1.3 H (0.7-1.2) MG/DL Est GFR ( Amer) 48 Est GFR (Non-Af Amer) 40 Random Glucose 117 H (65-105) mg/dL Calcium 7.2 L (8.6-10.4) mg/dl Phosphorus 3.1 (2.5-4.5) mg/dL Magnesium 2.0 (1.6-2.3) mg/dL Total Bilirubin 0.8 (0.2-1.3) mg/dL AST 46 H (14-36) U/L ALT 63 H (9-52) U/L Alkaline Phosphatase 99 (38-126) U/L NT-Pro-B Natriuret Pep (0-900) pg/mL Total Protein 5.8 L (6.3-8.3) g/dL Albumin 2.7 L (3.5-5.0) g/dL Globulin 3.1 (2.2-3.9) gm/dL Albumin/Globulin Ratio 0.9 L (1.0-2.1) Arterial Blood Potassium (3.6-5.2) mmol/L 08/10/16 08/10/16 Range/Units 01:53 01:25 WBC 10.8 (4.8-10.8) K/uL RBC 3.20 L (3.80-5.20) Mil/uL Hgb 11.8 (11.0-16.0) g/dL Hct 36.6 (34.0-47.0) % MCV 114.4 H (81.0-99.0) fL MCH 37.0 H (27.0-31.0) pg MCHC 32.4 L (33.0-37.0) g/dL RDW 18.1 H (11.5-14.5) % Plt Count 130 (130-400) K/uL MPV 10.0 (7.2-11.7) fL Neut % (Auto) 86.3 H (50.0-75.0) % Lymph % (Auto) 3.2 L (20.0-40.0) % [place] % (Auto) 10.1 H (0.0-10.0) % Eos % (Auto) 0.0 (0.0-4.0) % Baso % (Auto) 0.4 (0.0-2.0) % Neut # 9.4 H (1.8-7.0) K/uL Lymph # 0.3 L (1.0-4.3) K/uL [place] # 1.1 H (0.0-0.8) K/uL Eos # 0.0 (0.0-0.7) K/uL Baso # 0.0 (0.0-0.2) K/uL Neutrophils % (Manual) 86 H (50-75) % Band Neutrophils % 3 H (0-2) % Lymphocytes % (Manual) 2 L (20-40) % Monocytes % (Manual) 8 (0-10) % Eosinophils % (Manual) 1 (0-4) % Platelet Estimate Normal (NORMAL) Anisocytosis (manual) Slight Macrocytosis (manual) Slight PT (9.7-12.2) SECONDS INR APTT (21-34) SECONDS Puncture Site R rad pCO2 44 (35-45) mm/Hg pO2 82 (80-100) mm/Hg HCO3 20.7 L (21-28) mmol/L ABG pH 7.29 L (7.35-7.45) ABG Total CO2 22.6 (22-28) mmol/L ABG O2 Saturation 98.1 H (95-98) % ABG Base Excess -5.3 L (-2.0-3.0) mmol/L Seng Test Pos ABG Potassium 3.9 (3.6-5.2) mmol/L A-a O2 Difference 576.0 mm/Hg Respiratory Index 7.0 Sodium 145.0 (132-148) mmol/l Chloride 120.0 H (98-107) mmol/L Glucose 119 H (65-105) mg/dl Lactate 0.9 (0.7-2.1) mmol/L Liter Flow 15.0 Mechanical Rate FiO2 100.0 % Inspiratory BiPAP Expiratory BiPAP Potassium (3.6-5.2) mmol/L Carbon Dioxide (22-30) mmol/L Anion Gap (10-20) BUN (7-17) mg/dL Creatinine (0.7-1.2) MG/DL Est GFR ( Amer) Est GFR (Non-Af Amer) Random Glucose (65-105) mg/dL Calcium (8.6-10.4) mg/dl Phosphorus (2.5-4.5) mg/dL Magnesium (1.6-2.3) mg/dL Total Bilirubin (0.2-1.3) mg/dL AST (14-36) U/L ALT (9-52) U/L Alkaline Phosphatase (38-126) U/L NT-Pro-B Natriuret Pep (0-900) pg/mL Total Protein (6.3-8.3) g/dL Albumin (3.5-5.0) g/dL Globulin (2.2-3.9) gm/dL Albumin/Globulin Ratio (1.0-2.1) Arterial Blood Potassium 3.9 (3.6-5.2) mmol/L Laboratory Results - last 24 hr 08/10/16 08/10/16 08/10/16 01:25 01:53 01:53 WBC 10.8 RBC 3.20 L Hgb 11.8 Hct 36.6 MCV 114.4 H MCH 37.0 H MCHC 32.4 L RDW 18.1 H Plt Count 130 MPV 10.0 Neut % (Auto) 86.3 H Lymph % (Auto) 3.2 L [place] % (Auto) 10.1 H Eos % (Auto) 0.0 Baso % (Auto) 0.4 Neut # 9.4 H Lymph # 0.3 L [place] # 1.1 H Eos # 0.0 Baso # 0.0 Neutrophils % (Manual) 86 H Band Neutrophils % 3 H Lymphocytes % (Manual) 2 L Monocytes % (Manual) 8 Eosinophils % (Manual) 1 Platelet Estimate Normal Anisocytosis (manual) Slight Macrocytosis (manual) Slight PT 11.6 INR 1.0 APTT 63 H D Puncture Site R rad pCO2 44 pO2 82 HCO3 20.7 L ABG pH 7.29 L ABG Total CO2 22.6 ABG O2 Saturation 98.1 H ABG Base Excess -5.3 L Seng Test Pos ABG Potassium 3.9 A-a O2 Difference 576.0 Respiratory Index 7.0 Sodium 145.0 Chloride 120.0 H Glucose 119 H Lactate 0.9 Liter Flow 15.0 Mechanical Rate FiO2 100.0 Inspiratory BiPAP Expiratory BiPAP Potassium Carbon Dioxide Anion Gap BUN Creatinine Est GFR ( Amer) Est GFR (Non-Af Amer) Random Glucose Calcium Phosphorus Magnesium Total Bilirubin AST ALT Alkaline Phosphatase NT-Pro-B Natriuret Pep Total Protein Albumin Globulin Albumin/Globulin Ratio Arterial Blood Potassium 3.9 08/10/16 08/10/16 08/10/16 01:53 08:43 09:20 WBC RBC Hgb Hct MCV MCH MCHC RDW Plt Count MPV Neut % (Auto) Lymph % (Auto) [place] % (Auto) Eos % (Auto) Baso % (Auto) Neut # Lymph # [place] # Eos # Baso # Neutrophils % (Manual) Band Neutrophils % Lymphocytes % (Manual) Monocytes % (Manual) Eosinophils % (Manual) Platelet Estimate Anisocytosis (manual) Macrocytosis (manual) PT INR APTT 91 H D Puncture Site Rradial pCO2 45 pO2 80 HCO3 19.5 L ABG pH 7.26 L ABG Total CO2 21.6 L ABG O2 Saturation 97.6 ABG Base Excess -6.8 L Seng Test Pos ABG Potassium 3.8 A-a O2 Difference 363.0 Respiratory Index 4.5 Sodium 142 146.0 Chloride 117 H 121.0 H Glucose 102 Lactate 0.8 Liter Flow Mechanical Rate 14 FiO2 70.0 Inspiratory BiPAP 10 Expiratory BiPAP 5 Potassium 4.2 Carbon Dioxide 20 L Anion Gap 9 L BUN 41 H Creatinine 1.3 H Est GFR ( Amer) 48 Est GFR (Non-Af Amer) 40 Random Glucose 117 H Calcium 7.2 L Phosphorus 3.1 Magnesium 2.0 Total Bilirubin 0.8 AST 46 H ALT 63 H Alkaline Phosphatase 99 NT-Pro-B Natriuret Pep Total Protein 5.8 L Albumin 2.7 L Globulin 3.1 Albumin/Globulin Ratio 0.9 L Arterial Blood Potassium 3.8 08/10/16 08/10/16 12:24 20:37 WBC RBC Hgb Hct MCV MCH MCHC RDW Plt Count MPV Neut % (Auto) Lymph % (Auto) [place] % (Auto) Eos % (Auto) Baso % (Auto) Neut # Lymph # [place] # Eos # Baso # Neutrophils % (Manual) Band Neutrophils % Lymphocytes % (Manual) Monocytes % (Manual) Eosinophils % (Manual) Platelet Estimate Anisocytosis (manual) Macrocytosis (manual) PT INR APTT Puncture Site pCO2 pO2 HCO3 ABG pH ABG Total CO2 ABG O2 Saturation ABG Base Excess Seng Test ABG Potassium A-a O2 Difference Respiratory Index Sodium 143 Chloride 116 H Glucose Lactate Liter Flow Mechanical Rate FiO2 Inspiratory BiPAP Expiratory BiPAP Potassium 3.9 Carbon Dioxide 21 L Anion Gap 10 BUN 30 H Creatinine 0.9 Est GFR ( Amer) > 60 Est GFR (Non-Af Amer) > 60 Random Glucose 103 Calcium 6.3 L Phosphorus Magnesium Total Bilirubin AST ALT Alkaline Phosphatase NT-Pro-B Natriuret Pep 39689 H Total Protein Albumin Globulin Albumin/Globulin Ratio Arterial Blood Potassium Critical Care Progress Note - Nutrition Nutrition: Nutrition Category Date Time Status Heart Healthy Diet [DIET] Diets 08/07/16 Dinner Active Assessment/Plan (1) Arrhythmia Current Visit: Yes Status: Acute (2) Closed fracture of greater trochanter of left femur Assessment and plan: 76-year-old female with history of osteoporosis, osteoarthritis, severe weakness and a recurrent fall, complicated with the bilateral hip fracture admitted to the hospital. Patient is currently having significant the weakness, and also associated pain secondary to the pain and fracture. Patient had a history of recurrent fall. Underlying neurological condition cannot be ruled out. She is at very high risk for DVT and pulmonary embolism. Currently on anticoagulation. Patient will need a definite treatment for the bilateral hip fracture. Awaiting cardiology clearance. Currently mobility is restricted because of the severe pain. pain control. We'll continue the current treatment and will follow the patient Patient with the acute heart failure. Improving at this time with IV Lasix. Overall prognosis is guarded. Patient will need a surgical intervention. Awaiting cardiology clearance in the morning. Surgical intervention currently pending Current Visit: Yes Status: Acute (3) Contusion of head Current Visit: Yes Status: Acute (4) Fall Current Visit: Yes Status: Acute
[2016-08-11 06:27] LABS: BASO % 0.5 % (0.0-2.0); EOS % 0.1 % (0.0-4.0); HEMOGLOBIN 11.2 g/dL (11.0-16.0); LYMPH # 0.2 K/uL (1.0-4.3); LYMPH % 2.5 % (20.0-40.0); MEAN CORPUSCULAR HEMOGLOBIN 36.9 pg (27.0-31.0); MEAN CORPUSCULAR HGB CONC 32.4 g/dL (33.0-37.0); MEAN PLATELET VOLUME 10.2 fL (7.2-11.7); MONO # 0.8 K/uL (0.0-0.8); MONO % 9.4 % (0.0-10.0); NEUT # 7.4 K/uL (1.8-7.0); NEUT % 87.5 % (50.0-75.0); NRBC % 0.1 % (0.0-2.0); PLATELET COUNT 150 K/uL (130-400); RBC 3.05 Mil/uL (3.80-5.20); RED CELL DISTRIBUTION WIDTH 18.3 % (11.5-14.5); WHITE BLOOD COUNT 8.5 K/uL (4.8-10.8)
[2016-08-11 06:32] LABS: ALBUMIN 2.3 g/dL (3.5-5.0)
[2016-08-11 06:35] LABS: GFR AFRICAN-AMERICAN > 60; GFR NON-AFRICAN AMERICAN > 60
[2016-08-11 06:36] LABS: ALB/GLOB RATIO 0.8 (1.0-2.1); ALT/SGPT 48 U/L (9-52); AST/SGOT 40 U/L (14-36); BLOOD UREA NITROGEN 28 mg/dL (7-17)
[2016-08-11 06:37] LABS: CALCIUM 6.6 mg/dl (8.6-10.4); MAGNESIUM 1.5 mg/dL (1.6-2.3)
[2016-08-11] MEDS ORDERED: Digoxin 500 mcg/2ml (0.5 mg/2ml) Inj IVP STA (07:25)
[2016-08-11] MEDS ORDERED: Potassium Chloride 10 mEq ER Tab PO ONE (07:26)
[2016-08-11] MEDS ORDERED: Magnesium Oxide 400 mg Tab UD PO STA (07:28)
[2016-08-11 08:03] LABS: ANISOCYTOSIS SLIGHT; EOSINOPHIL 1 % (0-4); HYPOCHROMIC SLIGHT; LYMPHOCYTE 2 % (20-40); MONOCYTE 9 % (0-10); NEUTROPHIL 88 % (50-75); PLATELET ESTIMATE NORMAL (NORMAL); POIKILOCYTOSIS SLIGHT; TOTAL CELLS COUNTED 100
--- NOTE | 2016-08-11 08:33 | RAD ---
PROCEDURE: CHEST RADIOGRAPH, 1 VIEW HISTORY: pre-op COMPARISON: 08/10/2016 FINDINGS: LUNGS: Biapical pleural thickening with upper lobe granulomatous changes. Prominent calcified granulomatous changes in the right lung apex. Moderate bilateral pleural effusions with prominent airspace opacities in the mid to lower lung zones bilaterally. Scattered nodularity throughout both lungs. Diffuse increased interstitial lung markings throughout both lungs. PLEURA: As above. CARDIOVASCULAR: Cardiomegaly. Calcification at the aortic knob. OSSEOUS STRUCTURES: Degenerative changes in the spine and shoulders. VISUALIZED UPPER ABDOMEN: Normal. OTHER FINDINGS: None. IMPRESSION: Biapical pleural thickening with upper lobe granulomatous changes. Prominent calcified granulomatous changes in the right lung apex. Moderate bilateral pleural effusions with prominent airspace opacities in the mid to lower lung zones bilaterally. Scattered nodularity throughout both lungs. Diffuse increased interstitial lung markings throughout both lungs.
--- NOTE | 2016-08-11 09:11 | VASCLAB ---
PROCEDURE: Lower Extremity Venous Duplex Exam. HISTORY: pedal edema B/L LE pain PRIORS: None. TECHNIQUE: Bilateral common femoral, femoral, popliteal and posterior tibial, peroneal and great saphenous veins were evaluated. Flow was assessed with color Doppler, compressibility, assessment of phasic flow and augmentation response. Report prepared by SUSAN Peoples, RVT FINDINGS: RIGHT: 1. Common Femoral Vein: 1.1. Compressibility - Fully compressible: Thrombus - None : Flow - Phasic: Augmentation -Normal: Reflux - None. 2. Femoral Vein: 2.1. Compressibility - Fully compressible: Thrombus - None : Flow - Phasic: Augmentation -Normal: Reflux - None. 3. Popliteal Vein: 3.1. Compressibility - Fully compressible: Thrombus - None : Flow - Phasic: Augmentation -Normal: Reflux - None. 4. Posterior Tibial Vein: 4.1. Compressibility - Fully compressible: Thrombus - None: Flow - Phasic: Augmentation -Normal: Reflux - None. 5. Peroneal Vein: 5.1. Compressibility - Fully compressible: Thrombus - None: Flow - Phasic: Augmentation -Normal: Reflux - None. 6. Great Saphenous Vein: 6.1. Compressibility - Fully compressible: Thrombus - None: Flow - Phasic: Augmentation - Normal: Reflux - None. LEFT: 1. Common Femoral Vein: 1.1. Compressibility - Fully compressible: Thrombus - None: Flow - Phasic: Augmentation -Normal: Reflux - None. 2. Femoral Vein: 2.1. Compressibility - Fully compressible: Thrombus - None: Flow - Phasic: Augmentation -Normal: Reflux - None. 3. Popliteal Vein: 3.1. Compressibility - Fully compressible: Thrombus - None : Flow - Phasic: Augmentation -Normal: Reflux - None. 4. Posterior Tibial Vein: 4.1. Compressibility - Fully compressible: Thrombus - None: Flow - Phasic: Augmentation -Normal: Reflux - None. 5. Peroneal Vein: 5.1. Compressibility - Fully compressible: Thrombus - None: Flow - Phasic: Augmentation -Normal: Reflux - None. 6. Great Saphenous Vein: 6.1. Compressibility - Fully compressible: Thrombus - None: Flow - Phasic: Augmentation - Normal: Reflux - None. OTHER FINDINGS: Right: None significant. Left: None significant. IMPRESSION: Right: No evidence of deep or superficial vein thrombosis of the right lower extremity. Normal valve function noted of the right side. Left: No evidence of deep or superficial vein thrombosis of the left lower extremity. Normal valve function noted of the left side.
--- NOTE | 2016-08-11 10:12 | CP.PCM.PN ---
Subjective - Date & Time of Evaluation Date of Evaluation: 08/11/16 Time of Evaluation: 10:05 - Subjective Subjective: Patient with hip pain. Returned to ICU over weekend for acute CHF exacerbation, SOB, and desat. Objective - Vital Signs/Intake and Output Vital Signs (last 24 hours): Temp Pulse Resp BP Pulse Ox 97.6 F 121 H 29 H 124/74 95 08/11/16 08:00 08/11/16 07:00 08/11/16 07:00 08/11/16 06:45 08/11/16 07:00 Intake and Output: 08/11/16 08/11/16 06:59 18:59 Intake Total 466.8 12.8 Output Total 1215 150 Balance -748.2 -137.2 - Medications Medications: Current Medications Acetaminophen (Tylenol 325mg Tab) 650 mg PO Q6 PRN PRN Reason: Pain, Mild (1-3) Last Admin: 08/11/16 04:53 Dose: 650 mg Digoxin (Lanoxin) 0.25 mg PO DAILY@1800 [place] Furosemide (Lasix) 40 mg IVP DAILY [place] Last Admin: 08/11/16 09:40 Dose: Not Given Heparin Sodium/Sodium Chloride (Heparin 22593 Units/250ml 1/2 Normal Saline) 25 ,000 units in 250 mls @ 6.423 mls/hr IV .Q24H PRN; Protocol; 12 UNITS/KG/HR PRN Reason: PROTOCOL Last Admin: 08/10/16 02:40 Dose: 12 units/kg/hr, 6.423 mls/hr Pantoprazole Sodium (Protonix Ec Tab) 40 mg PO DAILY [place] - Labs Labs: 08/11/16 06:20 08/11/16 06:20 PT 11.6 SECONDS (9.7-12.2) 08/10/16 01:53 INR 1.0 08/10/16 01:53 APTT 30 SECONDS (21-34) D 08/11/16 07:42 - Neurological Exam Neuro motor strength exam: Left Lower Extremity: 5 (5/5 ankle DF/PF, sensation intact), Right Lower Extremity: 5 Assessment and Plan (1) Displaced fracture of right femoral neck Assessment & Plan: Case d/w Dr. Talbert, patient developed acute CHF and is not medically optimized at this time for surgery per Dr. Elena, will plan for THR once medically optimized VTE proph, on heparin drip for CT chest d/w Dr. 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 Dictator : Department, Vascular C. Early Childhood Education Worker : Porter Head : Anibal Byrd MD Approver2 : Report Date : 08/09/2016 12:12:15 My Comment : PROCEDURE: Lower Extremity Venous Duplex Exam. HISTORY: pedal edema B/L LE pain PRIORS: None. TECHNIQUE: Bilateral common femoral, femoral, popliteal and posterior tibial, peroneal and great saphenous veins were evaluated. Flow was assessed with color Doppler, compressibility, assessment of phasic flow and augmentation response. Report prepared by SUSAN Peoples, RVT FINDINGS: RIGHT: 1. Common Femoral Vein: 1.1. Compressibility - Fully compressible: Thrombus - None : Flow - Phasic: Augmentation -Normal: Reflux - None. 2. Femoral Vein: 2.1. Compressibility - Fully compressible: Thrombus - None : Flow - Phasic: Augmentation -Normal: Reflux - None. 3. Popliteal Vein: 3.1. Compressibility - Fully compressible: Thrombus - None : Flow - Phasic: Augmentation -Normal: Reflux - None. 4. Posterior Tibial Vein: 4.1. Compressibility - Fully compressible: Thrombus - None: Flow - Phasic: Augmentation -Normal: Reflux - None. 5. Peroneal Vein: 5.1. Compressibility - Fully compressible: Thrombus - None: Flow - Phasic: Augmentation -Normal: Reflux - None. 6. Great Saphenous Vein: 6.1. Compressibility - Fully compressible: Thrombus - None: Flow - Phasic: Augmentation - Normal: Reflux - None. LEFT: 1. Common Femoral Vein: 1.1. Compressibility - Fully compressible: Thrombus - None: Flow - Phasic: Augmentation -Normal: Reflux - None. 2. Femoral Vein: 2.1. Compressibility - Fully compressible: Thrombus - None: Flow - Phasic: Augmentation -Normal: Reflux - None. 3. Popliteal Vein: 3.1. Compressibility - Fully compressible: Thrombus - None : Flow - Phasic: Augmentation -Normal: Reflux - None. 4. Posterior Tibial Vein: 4.1. Compressibility - Fully compressible: Thrombus - None: Flow - Phasic: Augmentation -Normal: Reflux - None. 5. Peroneal Vein: 5.1. Compressibility - Fully compressible: Thrombus - None: Flow - Phasic: Augmentation -Normal: Reflux - None. 6. Great Saphenous Vein: 6.1. Compressibility - Fully compressible: Thrombus - None: Flow - Phasic: Augmentation - Normal: Reflux - None. OTHER FINDINGS: Right: None significant. Left: None significant. IMPRESSION: Right: No evidence of deep or superficial vein thrombosis of the right lower extremity. Normal valve function noted of the right side. Left: No evidence of deep or superficial vein thrombosis of the left lower extremity. Normal valve function noted of the left side. atient Name / ID : HORACE Emanuel / [id number] Exam Date : 08/08/2016 09:02:51 ( Approved ) Study Comment : Sex / Age : F / 76Y Creator : Howard Smith MD Dictator : Howard Smith MD Early Childhood Education Worker : Porter Head : Howard Smith MD Approver2 : Report Date : 08/08/2016 13:56:11 My Comment : HISTORY: knee swelling/fall COMPARISON: No prior FINDINGS: BONES: Normal. No fracture. Osteopenia. JOINTS: Normal. No osteoarthritis. SOFT TISSUE: Normal. OTHER FINDINGS: None . IMPRESSION: No fracture. atient Name / ID : HORACE Emanuel / [id number] Exam Date : 08/07/2016 15:13:52 ( Approved ) Study Comment : Sex / Age : F / 76Y Creator : Young Cullen MD Dictator : Young Cullen MD Early Childhood Education Worker : Porter Head : Young Cullen MD Approver2 : Report Date : 08/07/2016 16:49:23 My Comment : PROCEDURE: Right Hip Radiographs. HISTORY: trauma COMPARISON: None. FINDINGS: BONES: There is a fracture of the right femoral neck. The fracture is displaced and mildly impacted. There is linear lucency through the left greater trochanter which may reflect fracture. This is not well evaluated radiographically. Please correlate clinically and consider further radiographic evaluation if clinically warranted. . The pelvis appears intact. The right femoral head is normally situated in the acetabulum. JOINTS: Normal. SOFT TISSUES: Normal. OTHER FINDINGS: None. IMPRESSION: Fracture right femoral neck with displacement and mild impaction. Questionable fracture of left greater trochanter. Please correlate clinically and consider further radiographic evaluation.
[2016-08-11] MEDS: Pantoprazole 40 mg EC Tab PO SCH (10:34)
[2016-08-11] MEDS ORDERED: Iodixanol 320 MG/ML 100 ML BOTTLE IV ONE (12:26)
--- NOTE | 2016-08-11 13:52 | CT ---
CTA chest PE protocol Indication: tachycardia and SOB Technique: Contiguous axial images were obtained through the chest with intravenous contrast enhancement. Sagittal and coronal reconstructions were generated and reviewed. This CT exam was performed using 1 or more of the falling dose reduction techniques: Automated exposure control, adjustment of the MAA and/or kV according to patient size, and/or use of iterative reconstruction technique. IV Contrast: 100 cc Visipaque 320 Radiation dose (DLP): 288.77 MGy-cm. Comparison: Chest x-ray performed 08/11/16 Findings: Limited visualized portions of the inferior thyroid gland appear grossly unremarkable. The mediastinal and hilar vascular structures appear unremarkable except for scattered calcifications. Cardiomegaly. No significant pericardial effusion. Atherosclerotic calcifications of the aorta. Dense coronary artery calcifications. No large central or segmental pulmonary embolus evident. Emphysematous changes. Small to moderate right greater than left pleural effusions and associated compressive consolidations. No pneumothorax. Limited visualization of the upper abdomen appears grossly unremarkable. Osseous demineralization. Degenerative changes. Scoliosis convex to the right. Impression: No large central or segmental pulmonary embolus evident. Emphysematous changes. Small to moderate right greater than left pleural effusions and associated compressive consolidations. Cardiomegaly. No significant pericardial effusion. Atherosclerotic calcifications of the aorta. Dense coronary artery calcifications.
--- NOTE | 2016-08-11 15:56 | CP.CCUPN ---
CCU Subjective - Physician Review Subjective (Free Text): 08/11/16 15:46 Patient seen and examined at the bedside. No acute distress. No acute events overnight. Nursing staff reports no issues. Patient's pain is controlled with PO tylenol at this point. Morphine added for additional pain control PRN. The patient has an acute exacerbation of CHF and remains medically unfit for OR for TAMARA. The patient denies fever, chills, headache, chest pain, SOB, abdominal pain, N/V/D/C. Today on rounds, the patient was placed on scheduled PO digoxin 0.25mg, and IV morphine 1mg q4 prn was added for additional pain control. The topic of advanced directives was also discussed at length. 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 Under circumstances where recovery to a quality of live that will enable her to care for her is not certain, she wishes no extraordinary measures to be taken. Critical Care Time Spent (in minutes): 90 CCU Objective - Vital Signs / Intake & Output Vital Signs (Last 4 hours): Vital Signs Temp Pulse Resp BP Pulse Ox 08/11/16 15:00 96 H 10 L 98 08/11/16 14:25 122/79 08/11/16 14:24 134 H 16 88 L 08/11/16 14:00 122 H 20 98 08/11/16 13:24 106 H 17 112/63 98 08/11/16 12:00 98.3 F 131 H 20 96 Intake and Output (Last 8hrs): Intake & Output 08/11/16 08/11/16 08/11/16 06:59 14:59 22:59 Intake Total 94.8 391.2 56.4 Output Total 375 2200 200 Balance -280.2 -1808.8 -143.6 Intake: Intake, IV Amount 44.8 51.2 6.4 Right Antecubital 6.4 51.2 6.4 left wrist 2nd port 38.4 Oral 50 340 50 Output: Urine 375 2200 200 Urethral (Jones) 375 2200 200 - Physical Exam Head: Positive for: Normocephalic, Ecchymosis, Other (Contusions over left side of face). Negative for: Atraumatic Pupils: Positive for: PERRL Extroacular Muscles: Positive for: EOMI Conjunctiva: Positive for: Normal Mouth: Positive for: Dry Neck: Positive for: Normal Range of Motion. Negative for: JVD, Bruit Respiratory/Chest: Positive for: Clear to Auscultation, Good Air Exchange. Negative for: Respiratory Distress, Accessory Muscle Use, Wheezes, Rales, Retracting, Rhonchi Cardiovascular: Positive for: Regular Rate and Rhythm, Normal S1, S2, Peripheal Pulses Present. Negative for: Murmurs Abdomen: Positive for: Normal Bowel Sounds. Negative for: Tenderness, Distention, Peritoneal Signs, Rebound, Guarding Upper Extremity: Positive for: Normal Inspection, NORMAL PULSES, Neurovascularly Intact Lower Extremity: Positive for: NORMAL PULSES, Deformity (right leg shotened and externally rotated ), Neurovascularly Intact, Other (tenderness over b/l hips to palpation). Negative for: Normal Inspection, Normal ROM Neurological: Positive for: CN II-XII Intact, Speech Normal, Motor Func Grossly Intact Skin: Positive for: Warm, Dry, Normal Color. Negative for: Rashes Psychiatric: Positive for: Alert, Oriented x 3 - Medications Active Medications: Active Medications Generic Name Dose Route Start Last Admin Trade Name Freq PRN Reason Stop Dose Admin Acetaminophen 650 mg 08/09/16 09:02 08/11/16 12:26 Tylenol 325mg Tab PO 650 mg Q6 PRN Administration Pain, Mild (1-3) Digoxin 0.25 mg 08/11/16 18:00 Lanoxin PO DAILY@1800 [place] Furosemide 40 mg 08/11/16 07:00 08/11/16 09:40 Lasix IVP Not Given DAILY [facility] Heparin Sodium/Sodium Chloride 25,000 units in 250 mls @ 6.423 mls/hr 02:20 08/10/16 02:40 Heparin 79767 Units/250ml 1/2 Normal Saline IV 12 units/kg/hr .Q24H PRN 6.423 mls/hr PROTOCOL Administration Protocol 12 UNITS/KG/HR Morphine Sulfate 1 mg 08/11/16 15:44 Morphine IV Q4 PRN Pain, severe (8-10) Pantoprazole Sodium 40 mg 08/11/16 10:00 08/11/16 10:34 Protonix Ec Tab PO 40 mg DAILY [place] Administration - Patient Studies Lab Studies: Lab Studies 08/11/16 08/11/16 08/11/16 Range/Units 07:42 06:20 06:20 WBC (4.8-10.8) K/uL RBC (3.80-5.20) Mil/uL Hgb (11.0-16.0) g/dL Hct (34.0-47.0) % MCV (81.0-99.0) fL MCH (27.0-31.0) pg MCHC (33.0-37.0) g/dL RDW (11.5-14.5) % Plt Count (130-400) K/uL MPV (7.2-11.7) fL Neut % (Auto) (50.0-75.0) % Lymph % (Auto) (20.0-40.0) % [place] % (Auto) (0.0-10.0) % Eos % (Auto) (0.0-4.0) % Baso % (Auto) (0.0-2.0) % Neut # (1.8-7.0) K/uL Lymph # (1.0-4.3) K/uL [place] # (0.0-0.8) K/uL Eos # (0.0-0.7) K/uL Baso # (0.0-0.2) K/uL Neutrophils % (Manual) (50-75) % Lymphocytes % (Manual) (20-40) % Monocytes % (Manual) (0-10) % Eosinophils % (Manual) (0-4) % Platelet Estimate (NORMAL) Hypochromasia (manual) Poikilocytosis (manual Anisocytosis (manual) Macrocytosis (manual) APTT 30 D (21-34) SECONDS Sodium 141 (132-148) mmol/L Potassium 3.6 (3.6-5.2) mmol/L Chloride 113 H (98-107) mmol/L Carbon Dioxide 23 (22-30) mmol/L Anion Gap 8 L (10-20) BUN 28 H (7-17) mg/dL Creatinine 0.9 (0.7-1.2) MG/DL Est GFR ( Amer) > 60 Est GFR (Non-Af Amer) > 60 Random Glucose 79 (65-105) mg/dL Calcium 6.6 L (8.6-10.4) mg/dl Phosphorus 2.5 (2.5-4.5) mg/dL Magnesium 1.5 L (1.6-2.3) mg/dL Total Bilirubin 0.9 (0.2-1.3) mg/dL AST 40 H (14-36) U/L ALT 48 (9-52) U/L Alkaline Phosphatase 80 (38-126) U/L Total Protein 5.1 L (6.3-8.3) g/dL Albumin 2.3 L (3.5-5.0) g/dL Globulin 2.8 (2.2-3.9) gm/dL Albumin/Globulin Ratio 0.8 L (1.0-2.1) Digoxin < 0.4 L (0.8-2.0) ng/mL 08/11/16 08/10/16 Range/Units 06:20 20:37 WBC 8.5 (4.8-10.8) K/uL RBC 3.05 L (3.80-5.20) Mil/uL Hgb 11.2 (11.0-16.0) g/dL Hct 34.7 (34.0-47.0) % MCV 114.0 H (81.0-99.0) fL MCH 36.9 H (27.0-31.0) pg MCHC 32.4 L (33.0-37.0) g/dL RDW 18.3 H (11.5-14.5) % Plt Count 150 (130-400) K/uL MPV 10.2 (7.2-11.7) fL Neut % (Auto) 87.5 H (50.0-75.0) % Lymph % (Auto) 2.5 L (20.0-40.0) % [place] % (Auto) 9.4 (0.0-10.0) % Eos % (Auto) 0.1 (0.0-4.0) % Baso % (Auto) 0.5 (0.0-2.0) % Neut # 7.4 H (1.8-7.0) K/uL Lymph # 0.2 L (1.0-4.3) K/uL [place] # 0.8 (0.0-0.8) K/uL Eos # 0.0 (0.0-0.7) K/uL Baso # 0.0 (0.0-0.2) K/uL Neutrophils % (Manual) 88 H (50-75) % Lymphocytes % (Manual) 2 L (20-40) % Monocytes % (Manual) 9 (0-10) % Eosinophils % (Manual) 1 (0-4) % Platelet Estimate Normal (NORMAL) Hypochromasia (manual) Slight Poikilocytosis (manual Slight Anisocytosis (manual) Slight Macrocytosis (manual) Slight APTT (21-34) SECONDS Sodium 143 (132-148) mmol/L Potassium 3.9 (3.6-5.2) mmol/L Chloride 116 H (98-107) mmol/L Carbon Dioxide 21 L (22-30) mmol/L Anion Gap 10 (10-20) BUN 30 H (7-17) mg/dL Creatinine 0.9 (0.7-1.2) MG/DL Est GFR ( Amer) > 60 Est GFR (Non-Af Amer) > 60 Random Glucose 103 (65-105) mg/dL Calcium 6.3 L (8.6-10.4) mg/dl Phosphorus (2.5-4.5) mg/dL Magnesium (1.6-2.3) mg/dL Total Bilirubin (0.2-1.3) mg/dL AST (14-36) U/L ALT (9-52) U/L Alkaline Phosphatase (38-126) U/L Total Protein (6.3-8.3) g/dL Albumin (3.5-5.0) g/dL Globulin (2.2-3.9) gm/dL Albumin/Globulin Ratio (1.0-2.1) Digoxin (0.8-2.0) ng/mL Laboratory Results - last 24 hr 08/10/16 08/11/16 08/11/16 20:37 06:20 06:20 WBC 8.5 RBC 3.05 L Hgb 11.2 Hct 34.7 MCV 114.0 H MCH 36.9 H MCHC 32.4 L RDW 18.3 H Plt Count 150 MPV 10.2 Neut % (Auto) 87.5 H Lymph % (Auto) 2.5 L [place] % (Auto) 9.4 Eos % (Auto) 0.1 Baso % (Auto) 0.5 Neut # 7.4 H Lymph # 0.2 L [place] # 0.8 Eos # 0.0 Baso # 0.0 Neutrophils % (Manual) 88 H Lymphocytes % (Manual) 2 L Monocytes % (Manual) 9 Eosinophils % (Manual) 1 Platelet Estimate Normal Hypochromasia (manual) Slight Poikilocytosis (manual Slight Anisocytosis (manual) Slight Macrocytosis (manual) Slight APTT Sodium 143 141 Potassium 3.9 3.6 Chloride 116 H 113 H Carbon Dioxide 21 L 23 Anion Gap 10 8 L BUN 30 H 28 H Creatinine 0.9 0.9 Est GFR ( Amer) > 60 > 60 Est GFR (Non-Af Amer) > 60 > 60 Random Glucose 103 79 Calcium 6.3 L 6.6 L Phosphorus 2.5 Magnesium 1.5 L Total Bilirubin 0.9 AST 40 H ALT 48 Alkaline Phosphatase 80 Total Protein 5.1 L Albumin 2.3 L Globulin 2.8 Albumin/Globulin Ratio 0.8 L Digoxin 08/11/16 08/11/16 06:20 07:42 WBC RBC Hgb Hct MCV MCH MCHC RDW Plt Count MPV Neut % (Auto) Lymph % (Auto) [place] % (Auto) Eos % (Auto) Baso % (Auto) Neut # Lymph # [place] # Eos # Baso # Neutrophils % (Manual) Lymphocytes % (Manual) Monocytes % (Manual) Eosinophils % (Manual) Platelet Estimate Hypochromasia (manual) Poikilocytosis (manual Anisocytosis (manual) Macrocytosis (manual) APTT 30 D Sodium Potassium Chloride Carbon Dioxide Anion Gap BUN Creatinine Est GFR ( Amer) Est GFR (Non-Af Amer) Random Glucose Calcium Phosphorus Magnesium Total Bilirubin AST ALT Alkaline Phosphatase Total Protein Albumin Globulin Albumin/Globulin Ratio Digoxin < 0.4 L Review of Systems - Review of Systems All systems: reviewed and no additional remarkable complaints except - EENT Eyes: absent: Blind Spots, Blurred Vision Ears: absent: Decreased Hearing, Tinnitus Nose/Mouth/Throat: absent: Nasal Congestion, Facial Pain, Neck Pain - Cardiovascular Cardiovascular: absent: Chest Pain, Palpitations, Syncope - Respiratory Respiratory: absent: Cough, Dyspnea, Dyspnea on Exertion - Gastrointestinal Gastrointestinal: absent: Abdominal Pain, Constipation, Diarrhea, Nausea, Vomiting - Genitourinary Genitourinary: absent: Change in Urinary Stream, Difficulty Urinating - Musculoskeletal Musculoskeletal: Arthralgias, Limited Range of Motion, Myalgias - Integumentary Integumentary: absent: Lesions, Rash, Wounds - Neurological Neurological: absent: Sensory Deficit, Syncope, Tingling, Tremor, Vertigo, Weakness - Endocrine Endocrine: absent: Cold Intolorance, Heat Intolorance Critical Care Progress Note - Extremities/Vascular Does the Patient have a Central Venous Catheter?: No Does the Patient need a Central Venous Catheter?: No Does the Patient have a Jones Catheter?: Yes Does the Patient need a Jones Catheter?: Yes Catheter Insertion Criteria: Patient requires prolonged immobilization - Prophylaxis GI Prophylaxis GI: PPI - Prophylaxis DVT Prophylaxis DVT: Heparin SQ (Heparin Drip ) - Nutrition Nutrition: Nutrition Category Date Time Status Heart Healthy Diet [DIET] Diets 08/07/16 Dinner Active Assessment/Plan (1) Garden grade IV closed subcapital fracture of proximal end of right femur Current Visit: Yes Status: Acute (2) CHF exacerbation Current Visit: Yes Status: Acute (3) Closed fracture of greater trochanter of left femur Current Visit: Yes Status: Acute - Assessment and Plan (Free Text) Plan: Patient Status: Continuing medical optimization prior to OR Unfit for OR at this time HYDABURG II- 10 Neuro: -AO x 3 -No acute issues -Will monitor closely following Morphine administration for AMS Cardiovascular: -Acute Exacerbation of Chronic Systolic CHF -A-fib -Digoxin 0.25mg PO daily -Lasix 40mg IV daily -08/09/16 Echo- EF 26%, grade I abnormal relaxation pattern, moderate-severe mitral regurgitation, mild pulm HTN Pulmonary: -Sating well -Imaging : 08/11/16 CTA Chest- No large central or segmental pulmonary embolus evident. Emphysematous changes. Small to moderate right greater than left pleural effusions and associated compressive consolidations. Cardiomegaly. No significant pericardial effusion. Atherosclerotic calcifications of the aorta. Dense coronary artery calcifications. : 08/11/16 CXR- Biapical pleural thickening with upper lobe granulomatous changes. Prominent calcified granulomatous changes in the right lung apex. Moderate bilateral pleural effusions with prominent airspace opacities in the mid to lower lung zones bilaterally. Scattered nodularity throughout both lungs. Diffuse increased interstitial lung markings throughout both lungs. : 08/10/16 CXR- Cardiomegaly and atherosclerotic disease; bilateral pleural effusions with basilar opacities atelectasis and/or infiltrate, findings greatest on the left Gastrointestinal: No acute complaints Tolerating Heart Healthy Diet Hematology: -PTT- 30 -continue Heparin Drip Endocrine: -No issues Renal: -Hypomagnesemia- replaced with 1g mag IV -Follow CMP on AM labs Musculoskeletal: -Right Garden IV Displaced Subcapital Femoral Neck Fracture : Plan for TAMARA with Dr. Elena -Left Isolated Greater Trochanter Fracture -Pain Control- Tylemol 650mg PO q6 PRN, morphine 1mg IV q4 PRN -Dr. Elena on case for orthopedic evaluation Genitourinary: -No issues -Continue jones catheter Infectious Disease: -None GI Prophylaxis: Protonix 40mg PO daily DVT Prophylaxis: Heparin Drip Case Discussed with Dr. Gali Grijalva PGY1 - Date & Time Date: 08/11/16 Time: 16:02
[2016-08-11] MEDS: Digoxin 250 mcg (0.25 mg) Tab PO SCH (17:25)
[2016-08-11] MEDS: Heparin25000 units/250ml 1/2NS 25,000 UNITS/250 ML BAG IV PRN (18:19)
--- NOTE | 2016-08-11 21:10 | CP.PCM.PN ---
Subjective - Date & Time of Evaluation Date of Evaluation: 08/11/16 Time of Evaluation: 21:03 - Subjective Subjective: Patient alert, oriented, in no acute respiratory distress. CTA of the chest: small to moderate pleural effusion, no pulmonary embolism. BP: 110/60 HR: 110 Afebrile. Patient is on IV Lasix and PO Digoxin. Renal status and liver enzymes improving. Objective - Vital Signs/Intake and Output Vital Signs (last 24 hours): Temp Pulse Resp BP Pulse Ox 97.8 F 102 H 21 122/69 96 08/11/16 20:00 08/11/16 20:25 08/11/16 20:25 08/11/16 20:25 08/11/16 20:25 Intake and Output: 08/11/16 08/12/16 18:59 06:59 Intake Total 1037.2 210.4 Output Total 2751 100 Balance -1713.8 110.4 - Medications Medications: Current Medications Acetaminophen (Tylenol 325mg Tab) 650 mg PO Q6 PRN PRN Reason: Pain, Mild (1-3) Last Admin: 08/11/16 12:26 Dose: 650 mg Digoxin (Lanoxin) 0.25 mg PO DAILY@1800 [facility] OF [facility] Last Admin: 08/11/16 17:25 Dose: 0.25 mg Furosemide (Lasix) 40 mg IVP DAILY ON LICENSE OF [facility] Last Admin: 08/11/16 09:40 Dose: Not Given Heparin Sodium/Sodium Chloride (Heparin 04177 Units/250ml 1/2 Normal Saline) 25 ,000 units in 250 mls @ 6.423 mls/hr IV .Q24H PRN; Protocol; 12 UNITS/KG/HR PRN Reason: PROTOCOL Last Titration: 08/11/16 18:20 Dose: 19.43 units/kg/hr, 10.4 mls/hr Morphine Sulfate (Morphine) 1 mg IV Q4 PRN PRN Reason: Pain, severe (8-10) Pantoprazole Sodium (Protonix Ec Tab) 40 mg PO DAILY [facility] OF [facility] Last Admin: 08/11/16 10:34 Dose: 40 mg - Labs Labs: 08/11/16 06:20 08/11/16 06:20 PT 11.6 SECONDS (9.7-12.2) 08/10/16 01:53 INR 1.0 08/10/16 01:53 APTT 60 SECONDS (21-34) H D 08/11/16 18:41 - Constitutional Appears: No Acute Distress, Chronically Ill - Head Exam Head Exam: NORMAL INSPECTION - Eye Exam Additional comments: Left joaquín-orbital hematoma. - ENT Exam ENT Exam: Normal Exam - Neck Exam Neck Exam: Normal Inspection - Respiratory Exam Additional comments: Rhonchi both bases. - Cardiovascular Exam Cardiovascular Exam: Irregular Rhythm - GI/Abdominal Exam GI & Abdominal Exam: Soft, Normal Bowel Sounds - Rectal Exam Rectal Exam: Deferred - Extremities Exam Additional comments: Bilateral hip tenderness. External rotation of the right leg.Excoriations of the knees. - Back Exam Back Exam: NORMAL INSPECTION - Neurological Exam Neurological Exam: Alert, Awake, Oriented x3 - Psychiatric Exam Psychiatric exam: Anxious - Skin Skin Exam: Abrasion, Dry, Intact, Warm Assessment and Plan (1) Closed fracture of greater trochanter of left femur Status: Acute (2) Dehydration Status: Resolved (3) Sepsis Status: Acute (4) Fall Status: Acute (5) Arrhythmia Status: Acute (6) Contusion of head Status: Acute (7) Garden grade IV closed subcapital fracture of proximal end of right femur Assessment & Plan: Surgery post-poned until Thursday. Status: Acute (8) CHF exacerbation Assessment & Plan: Probably from fluid overload. To continue Lasix IV. Status: Acute
[2016-08-12 06:40] LABS: BASO % 0.1 % (0.0-2.0); EOS % 0.6 % (0.0-4.0); LYMPH # 0.3 K/uL (1.0-4.3); LYMPH % 3.5 % (20.0-40.0); MEAN CELL VOLUME 112.4 fL (81.0-99.0); MEAN CORPUSCULAR HGB CONC 32.9 g/dL (33.0-37.0); MEAN PLATELET VOLUME 9.4 fL (7.2-11.7); MONO # 0.9 K/uL (0.0-0.8); MONO % 10.3 % (0.0-10.0); NEUT # 7.5 K/uL (1.8-7.0); NEUT % 85.5 % (50.0-75.0); PLATELET COUNT 184 K/uL (130-400); RBC 3.25 Mil/uL (3.80-5.20); RED CELL DISTRIBUTION WIDTH 17.3 % (11.5-14.5); WHITE BLOOD COUNT 8.7 K/uL (4.8-10.8)
[2016-08-12 07:10] LABS: ALBUMIN 2.3 g/dL (3.5-5.0)
[2016-08-12 07:12] LABS: ALB/GLOB RATIO 0.8 (1.0-2.1); GFR AFRICAN-AMERICAN > 60; GFR NON-AFRICAN AMERICAN > 60
[2016-08-12 07:13] LABS: ALT/SGPT 43 U/L (9-52); AST/SGOT 24 U/L (14-36); BLOOD UREA NITROGEN 20 mg/dL (7-17); CALCIUM 7.7 mg/dl (8.6-10.4)
[2016-08-12 07:14] LABS: MAGNESIUM 1.6 mg/dL (1.6-2.3)
[2016-08-12] MEDS ORDERED: Magnesium Sulfate 1 gm in D5W 1 GM/100 ML BAG IVPB ONE (07:51)
[2016-08-12 08:17] LABS: BANDS 6 % (0-2); LYMPHOCYTE 5 % (20-40); MONOCYTE 11 % (0-10); NEUTROPHIL 78 % (50-75); PLATELET ESTIMATE NORMAL (NORMAL); TOTAL CELLS COUNTED 100
--- NOTE | 2016-08-12 08:40 | RAD ---
Chest x-ray single frontal view History: Congestive heart failure. Comparison: 08/11/2016 Findings: Biapical pleural thickening with upper lobe granulomatous changes. Diffuse increased interstitial lung markings. Prominent bibasilar airspace opacities with small to moderate bilateral pleural effusions. Scattered nodularity in both lungs. Cardiomegaly. Calcification at the aortic knob. Degenerative changes in the spine and shoulders. Impression: No significant interval change.
[2016-08-12] MEDS ORDERED: Heparin25000 units/250ml 1/2NS 25,000 UNITS/250 ML BAG IV PRN ×2 (09:34→12:30)
--- NOTE | 2016-08-12 09:35 | CP.PCM.PN ---
Subjective - Date & Time of Evaluation Date of Evaluation: 08/12/16 Time of Evaluation: 09:33 - Subjective Subjective: Patient states pain in left hip is minimal, but still having pain in her right hip. +cough Objective - Vital Signs/Intake and Output Vital Signs (last 24 hours): Temp Pulse Resp BP Pulse Ox 97.6 F 97 H 12 128/71 99 08/12/16 08:00 08/12/16 08:24 08/12/16 08:24 08/12/16 08:24 08/12/16 08:24 Intake and Output: 08/12/16 08/12/16 06:59 18:59 Intake Total 458.0 35.2 Output Total 525 70 Balance -67.0 -34.8 - Medications Medications: Current Medications Acetaminophen (Tylenol 325mg Tab) 650 mg PO Q6 PRN PRN Reason: Pain, Mild (1-3) Last Admin: 08/11/16 12:26 Dose: 650 mg Digoxin (Lanoxin) 0.25 mg PO DAILY@1800 [facility] Last Admin: 08/11/16 17:25 Dose: 0.25 mg Furosemide (Lasix) 40 mg IVP DAILY [facility] Last Admin: 08/11/16 09:40 Dose: Not Given Heparin Sodium/Sodium Chloride (Heparin 65320 Units/250ml 1/2 Normal Saline) 25 ,000 units in 250 mls @ 6.423 mls/hr IV .Q24H PRN; Protocol; 12 UNITS/KG/HR PRN Reason: PROTOCOL Last Titration: 08/12/16 02:55 Dose: 16.26 units/kg/hr, 8.703 mls/hr Potassium Chloride (Potassium Chloride 20 Meq/100 Ml) 20 meq in 100 mls @ 50 mls/hr IVPB ONCE ONE Stop: 08/12/16 09:50 Last Admin: 08/12/16 08:21 Dose: 50 mls/hr Morphine Sulfate (Morphine) 1 mg IV Q4 PRN PRN Reason: Pain, severe (8-10) Pantoprazole Sodium (Protonix Ec Tab) 40 mg PO DAILY [facility] Last Admin: 08/11/16 10:34 Dose: 40 mg - Labs Labs: 08/12/16 06:25 08/12/16 06:26 PT 11.6 SECONDS (9.7-12.2) 08/10/16 01:53 INR 1.0 08/10/16 01:53 APTT 87 SECONDS (21-34) H D 08/12/16 03:04 - Respiratory Exam Additional comments: productive cough - Extremities Exam Additional comments: RLE: +ROM ankle DF/PF, sensation intact, calves soft NT neg homans, 1+ edema BLE , RLE shortened ER. LLE, mild pain with hip/knee flex/ext, encourage ROM ankles Assessment and Plan (1) Displaced fracture of right femoral neck Assessment & Plan: Plan for THR 08/13 if medically optimized T&C VTE proph, heparin to be held pre op consider sequential compression devices d/w Dr. Elena, agrees with above Status: Deleted (2) Degenerative joint disease of right hip Status: Chronic (3) Closed fracture of greater trochanter of left femur Assessment & Plan: non operative Status: Acute
[2016-08-12] MEDS: Pantoprazole 40 mg EC Tab PO SCH (09:55)
[2016-08-12] MEDS ORDERED: Sodium Phosphate 15 MMOLE in Sodium Chloride 0.9% 250 ML IVPB ONE (11:46)
--- NOTE | 2016-08-12 14:56 | CP.CCUPN ---
<Donnell Grijalva - Last Filed: 08/12/16 14:51> CCU Subjective - Physician Review Subjective (Free Text): 08/11/16 15:46 Patient seen and examined at the bedside. No acute distress. No acute events overnight. Nursing staff reports no issues. Patient's pain is controlled with PO tylenol at this point. Morphine added for additional pain control PRN. The patient has an acute exacerbation of CHF and remains medically unfit for OR for TAMARA. The patient denies fever, chills, headache, chest pain, SOB, abdominal pain, N/V/D/C. Today on rounds, the patient was placed on scheduled PO digoxin 0.25mg, and IV morphine 1mg q4 prn was added for additional pain control. The topic of advanced directives was also discussed at length. 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 Under circumstances where recovery to a quality of live that will enable her to care for her is not certain, she wishes no extraordinary measures to be taken. 08/12/16 14:52 Patient seen and examined at the bedside. No acute distress. No acute events overnight. Nursing staff reports no issues. Patient's pain is controlled with PO tylenol and morphine PRN. The patient has been tentatively scheduled for OR at 11:30am with Dr. Elena pending medical risk assessment and clearance. The patient reports continued right leg pain. Per the patient, the pain is adequately controlled. The patient denies fever, chills, headache, chest pain, SOB, abdominal pain, N/V/D/C. Today on rounds, the patient's heparin drip was changed to cardiac protocol. Dr. Peacock was consulted for chronic low ejection systolic heart failure and new onset a-fib. The patient's phosphorous, magnesium, and potassium were replaced. To supplement her diet, Boost was added with all meals and ensure was added one time daily at night. Critical Care Time Spent (in minutes): 60 CCU Objective - Vital Signs / Intake & Output Vital Signs (Last 4 hours): Vital Signs Temp Pulse Resp BP Pulse Ox 08/12/16 14:24 120/75 08/12/16 13:24 73 12 114/69 99 08/12/16 12:24 79 12 115/67 98 08/12/16 12:00 97.6 F 08/12/16 11:27 101 H 113/65 97 Intake and Output (Last 8hrs): Intake & Output 08/11/16 08/12/16 08/12/16 22:59 06:59 14:59 Intake Total 933.6 166.4 710.6 Output Total 715 360 155 Balance 218.6 -193.6 555.6 Intake: IV 250 0 87 Intake, IV Amount 93.6 66.4 263.6 Right Antecubital 93.6 66.4 104.8 right upper arm 8.8 rt upper arm 150 Oral 590 100 360 Output: Urine 715 360 155 Urethral (Jones) 715 360 155 Other: # Bowel Movements 1 1 - Physical Exam Head: Positive for: Normocephalic, Ecchymosis, Other (Contusions over left side of face). Negative for: Atraumatic Pupils: Positive for: PERRL Extroacular Muscles: Positive for: EOMI Conjunctiva: Positive for: Normal Mouth: Positive for: Dry Neck: Positive for: Normal Range of Motion. Negative for: JVD, Bruit Respiratory/Chest: Positive for: Good Air Exchange, Decreased Breath Sounds ( bibasilar R > L), Rales (bibasilar ). Negative for: Clear to Auscultation, Respiratory Distress, Accessory Muscle Use, Wheezes, Retracting, Rhonchi Cardiovascular: Positive for: Regular Rate and Rhythm, Normal S1, S2, Peripheal Pulses Present. Negative for: Murmurs Abdomen: Positive for: Normal Bowel Sounds. Negative for: Tenderness, Distention, Peritoneal Signs, Rebound, Guarding Upper Extremity: Positive for: Normal Inspection, NORMAL PULSES, Neurovascularly Intact Lower Extremity: Positive for: NORMAL PULSES, Deformity (right leg shotened and externally rotated ), Neurovascularly Intact, Other (tenderness over b/l hips to palpation). Negative for: Normal Inspection, Normal ROM Neurological: Positive for: CN II-XII Intact, Speech Normal, Motor Func Grossly Intact Skin: Positive for: Warm, Dry, Normal Color. Negative for: Rashes Psychiatric: Positive for: Alert, Oriented x 3 - Medications Active Medications: Active Medications Generic Name Dose Route Start Last Admin Trade Name Freq PRN Reason Stop Dose Admin Acetaminophen 650 mg 08/09/16 09:02 08/12/16 09:53 Tylenol 325mg Tab PO 650 mg Q6 PRN Administration Pain, Mild (1-3) Digoxin 0.25 mg 08/11/16 18:00 08/11/16 17:25 Lanoxin PO 0.25 mg DAILY@1800 [place] Administration Sodium Phosphate 15 mmole/ 255 mls @ 50 mls/hr 08/12/16 11:46 08/12/16 12:23 Sodium Chloride IVPB 08/12/16 16:51 50 mls/hr .[id number] ONE Administration Heparin Sodium/Sodium Chloride 25,000 units in 250 mls @ 7.119 mls/hr 12:30 Heparin 22058 Units/250ml 1/2 Normal Saline IV .Q24H PRN PROTOCOL Protocol 13.3 UNITS/KG/HR Morphine Sulfate 1 mg 08/11/16 15:44 08/12/16 12:22 Morphine IV 1 mg Q4 PRN Administration Pain, severe (8-10) Pantoprazole Sodium 40 mg 08/11/16 10:00 08/12/16 09:55 Protonix Ec Tab PO 40 mg DAILY [place] Administration - Patient Studies Lab Studies: Lab Studies 08/12/16 08/12/16 08/12/16 Range/Units 09:20 06:26 06:25 WBC 8.7 (4.8-10.8) K/uL RBC 3.25 L (3.80-5.20) Mil/uL Hgb 12.0 (11.0-16.0) g/dL Hct 36.5 (34.0-47.0) % MCV 112.4 H (81.0-99.0) fL MCH 37.0 H (27.0-31.0) pg MCHC 32.9 L (33.0-37.0) g/dL RDW 17.3 H (11.5-14.5) % Plt Count 184 (130-400) K/uL MPV 9.4 (7.2-11.7) fL Neut % (Auto) 85.5 H (50.0-75.0) % Lymph % (Auto) 3.5 L (20.0-40.0) % [place] % (Auto) 10.3 H (0.0-10.0) % Eos % (Auto) 0.6 (0.0-4.0) % Baso % (Auto) 0.1 (0.0-2.0) % Neut # 7.5 H (1.8-7.0) K/uL Lymph # 0.3 L (1.0-4.3) K/uL [place] # 0.9 H (0.0-0.8) K/uL Eos # 0.0 (0.0-0.7) K/uL Baso # 0.0 (0.0-0.2) K/uL Neutrophils % (Manual) 78 H (50-75) % Band Neutrophils % 6 H (0-2) % Lymphocytes % (Manual) 5 L (20-40) % Monocytes % (Manual) 11 H (0-10) % Platelet Estimate Normal (NORMAL) RBC Morphology Normal APTT 174 H* D (21-34) SECONDS Sodium 140 (132-148) mmol/L Potassium 3.6 (3.6-5.2) mmol/L Chloride 106 (98-107) mmol/L Carbon Dioxide 33 H (22-30) mmol/L Anion Gap 5 L (10-20) BUN 20 H (7-17) mg/dL Creatinine 0.7 (0.7-1.2) MG/DL Est GFR ( Amer) > 60 Est GFR (Non-Af Amer) > 60 Random Glucose 94 (65-105) mg/dL Calcium 7.7 L (8.6-10.4) mg/dl Phosphorus 2.0 L (2.5-4.5) mg/dL Magnesium 1.6 (1.6-2.3) mg/dL Total Bilirubin 0.6 (0.2-1.3) mg/dL AST 24 (14-36) U/L ALT 43 (9-52) U/L Alkaline Phosphatase 89 (38-126) U/L Total Protein 5.2 L (6.3-8.3) g/dL Albumin 2.3 L (3.5-5.0) g/dL Globulin 2.8 (2.2-3.9) gm/dL Albumin/Globulin Ratio 0.8 L (1.0-2.1) 08/12/16 08/12/16 08/11/16 Range/Units 03:04 01:12 18:41 WBC (4.8-10.8) K/uL RBC (3.80-5.20) Mil/uL Hgb (11.0-16.0) g/dL Hct (34.0-47.0) % MCV (81.0-99.0) fL MCH (27.0-31.0) pg MCHC (33.0-37.0) g/dL RDW (11.5-14.5) % Plt Count (130-400) K/uL MPV (7.2-11.7) fL Neut % (Auto) (50.0-75.0) % Lymph % (Auto) (20.0-40.0) % [place] % (Auto) (0.0-10.0) % Eos % (Auto) (0.0-4.0) % Baso % (Auto) (0.0-2.0) % Neut # (1.8-7.0) K/uL Lymph # (1.0-4.3) K/uL [place] # (0.0-0.8) K/uL Eos # (0.0-0.7) K/uL Baso # (0.0-0.2) K/uL Neutrophils % (Manual) (50-75) % Band Neutrophils % (0-2) % Lymphocytes % (Manual) (20-40) % Monocytes % (Manual) (0-10) % Platelet Estimate (NORMAL) RBC Morphology APTT 87 H D 187 H* D 60 H D (21-34) SECONDS Sodium (132-148) mmol/L Potassium (3.6-5.2) mmol/L Chloride (98-107) mmol/L Carbon Dioxide (22-30) mmol/L Anion Gap (10-20) BUN (7-17) mg/dL Creatinine (0.7-1.2) MG/DL Est GFR ( Amer) Est GFR (Non-Af Amer) Random Glucose (65-105) mg/dL Calcium (8.6-10.4) mg/dl Phosphorus (2.5-4.5) mg/dL Magnesium (1.6-2.3) mg/dL Total Bilirubin (0.2-1.3) mg/dL AST (14-36) U/L ALT (9-52) U/L Alkaline Phosphatase (38-126) U/L Total Protein (6.3-8.3) g/dL Albumin (3.5-5.0) g/dL Globulin (2.2-3.9) gm/dL Albumin/Globulin Ratio (1.0-2.1) Laboratory Results - last 24 hr 08/11/16 08/12/16 08/12/16 18:41 01:12 03:04 WBC RBC Hgb Hct MCV MCH MCHC RDW Plt Count MPV Neut % (Auto) Lymph % (Auto) [place] % (Auto) Eos % (Auto) Baso % (Auto) Neut # Lymph # [place] # Eos # Baso # Neutrophils % (Manual) Band Neutrophils % Lymphocytes % (Manual) Monocytes % (Manual) Platelet Estimate RBC Morphology APTT 60 H D 187 H* D 87 H D Sodium Potassium Chloride Carbon Dioxide Anion Gap BUN Creatinine Est GFR ( Amer) Est GFR (Non-Af Amer) Random Glucose Calcium Phosphorus Magnesium Total Bilirubin AST ALT Alkaline Phosphatase Total Protein Albumin Globulin Albumin/Globulin Ratio 08/12/16 08/12/16 08/12/16 06:25 06:26 09:20 WBC 8.7 RBC 3.25 L Hgb 12.0 Hct 36.5 MCV 112.4 H MCH 37.0 H MCHC 32.9 L RDW 17.3 H Plt Count 184 MPV 9.4 Neut % (Auto) 85.5 H Lymph % (Auto) 3.5 L [place] % (Auto) 10.3 H Eos % (Auto) 0.6 Baso % (Auto) 0.1 Neut # 7.5 H Lymph # 0.3 L [place] # 0.9 H Eos # 0.0 Baso # 0.0 Neutrophils % (Manual) 78 H Band Neutrophils % 6 H Lymphocytes % (Manual) 5 L Monocytes % (Manual) 11 H Platelet Estimate Normal RBC Morphology Normal APTT 174 H* D Sodium 140 Potassium 3.6 Chloride 106 Carbon Dioxide 33 H Anion Gap 5 L BUN 20 H Creatinine 0.7 Est GFR ( Amer) > 60 Est GFR (Non-Af Amer) > 60 Random Glucose 94 Calcium 7.7 L Phosphorus 2.0 L Magnesium 1.6 Total Bilirubin 0.6 AST 24 ALT 43 Alkaline Phosphatase 89 Total Protein 5.2 L Albumin 2.3 L Globulin 2.8 Albumin/Globulin Ratio 0.8 L Review of Systems - Review of Systems Review of Systems: - Review of Systems All systems: reviewed and no additional remarkable complaints except - EENT Eyes: absent: Blind Spots, Blurred Vision Ears: absent: Decreased Hearing, Tinnitus Nose/Mouth/Throat: absent: Nasal Congestion, Facial Pain, Neck Pain - Cardiovascular Cardiovascular: absent: Chest Pain, Palpitations, Syncope - Respiratory Respiratory: absent: Cough, Dyspnea, Dyspnea on Exertion - Gastrointestinal Gastrointestinal: absent: Abdominal Pain, Constipation, Diarrhea, Nausea, Vomiting - Genitourinary Genitourinary: absent: Change in Urinary Stream, Difficulty Urinating - Musculoskeletal Musculoskeletal: Arthralgias, Limited Range of Motion, Myalgias - Integumentary Integumentary: absent: Lesions, Rash, Wounds - Neurological Neurological: absent: Sensory Deficit, Syncope, Tingling, Tremor, Vertigo, Weakness - Endocrine Endocrine: absent: Cold Intolorance, Heat Intolorance Critical Care Progress Note - Extremities/Vascular Does the Patient have a Central Venous Catheter?: No Does the Patient need a Central Venous Catheter?: No Does the Patient have a Jones Catheter?: Yes Does the Patient need a Jones Catheter?: Yes Catheter Insertion Criteria: Patient requires prolonged immobilization - Prophylaxis GI Prophylaxis GI: PPI - Prophylaxis DVT Prophylaxis DVT: Heparin SQ (Drip (Cardiac Protocol)) - Nutrition Nutrition: Nutrition Category Date Time Status Heart Healthy Diet [DIET] Diets 08/07/16 Dinner Active NPO Diet [DIET] Diets 08/13/16 Breakfast Active Assessment/Plan (1) Garden grade IV closed subcapital fracture of proximal end of right femur Current Visit: Yes Status: Acute (2) CHF exacerbation Current Visit: Yes Status: Acute (3) Closed fracture of greater trochanter of left femur Current Visit: Yes Status: Acute - Assessment and Plan (Free Text) Plan: Patient Status: Continuing medical optimization prior to OR (tentative plan for OR 11: 30AM) Unfit for OR at this time, cardiac risk assessment pending CROW II- 10 Neuro: -AO x 3 -No acute issues -Will monitor closely following Morphine administration for AMS Cardiovascular: -Acute Exacerbation of Chronic Systolic CHF -Cardiology Consult- Dr. Peacock for risk assessment, low EF systolic heart failure, and new onset a-fib -New Onset A-fib : [id number] (clinical indication for PO anticoagulation) : HASBLED- 1 (low risk for PO anticoagulation) : Anticoagulation with Heparin Drip (cardiac protocol)- will DC 4 hours prior to OR -Digoxin 0.25mg PO daily -DC Lasix -08/09/16 Echo- EF 26%, grade I abnormal relaxation pattern, moderate-severe mitral regurgitation, mild pulm HTN Pulmonary: -Sating well -No issues -Imaging : 08/11/16 CTA Chest- No large central or segmental pulmonary embolus evident. Emphysematous changes. Small to moderate right greater than left pleural effusions and associated compressive consolidations. Cardiomegaly. No significant pericardial effusion. Atherosclerotic calcifications of the aorta. Dense coronary artery calcifications. : 08/11/16 CXR- Biapical pleural thickening with upper lobe granulomatous changes. Prominent calcified granulomatous changes in the right lung apex. Moderate bilateral pleural effusions with prominent airspace opacities in the mid to lower lung zones bilaterally. Scattered nodularity throughout both lungs. Diffuse increased interstitial lung markings throughout both lungs. : 08/10/16 CXR- Cardiomegaly and atherosclerotic disease; bilateral pleural effusions with basilar opacities atelectasis and/or infiltrate, findings greatest on the left Gastrointestinal: -No acute complaints -Boost added at meal time for nutritional supplementation -Ensure at night for additional supplementation Hematology: -PTT- 174 -continue Heparin Drip (cardiac protocol) Endocrine: -No issues Renal: -Metabolic Alkalosis- likely 2/2 loop diuretic use. DC Lasix -Hypomagnesemia- replaced with 1g mag IV -Hypophosphatemia- replaced with sodium phosphate 15mmol -Hypokalemia- replaced with 20meq KCl Musculoskeletal: -Dopple US Negative for DVT -Right Garden IV Displaced Subcapital Femoral Neck Fracture : Plan for TAMARA with Dr. Elena 11:30 AM, hold heparin 4 hours before -Left Isolated Greater Trochanter Fracture -Pain Control- Tylenol 650mg PO q6 PRN, morphine 1mg IV q4 PRN -Dr. Elena on case for orthopedic evaluation -Imaging -08/08/16 R Knee XR- no acute fracture of dislocation -08/07/16 CT Pelvis- 1. Impacted fracture of the proximal right femur. This appears and involves the neck of the femur. 2. Preserved right femoral acetabular relationship. 3. Destructive process with associated fracture of the greater trochanter left femur. Abundant soft tissue swelling noted. . By history, the patient does not have a known malignancy. -08/07/16 Pelvis XR- Fracture right femoral neck with displacement and mild impaction. Questionable fracture of left greater trochanter. Please correlate clinically and consider further radiographic evaluation. Genitourinary: -No issues -Continue jones catheter Infectious Disease: -None GI Prophylaxis: Protonix 40mg PO daily DVT Prophylaxis: Heparin Drip Case Discussed with Dr. Zak Grijalva PGY1 - Date & Time Date: 08/12/16 Time: 14:57 <Maurizio Crespo - Last Filed: 08/12/16 18:11> CCU Subjective - Physician Review Critical Care Time Spent (in minutes): 35 CCU Objective - Vital Signs / Intake & Output Vital Signs (Last 4 hours): Vital Signs Temp Pulse Resp BP Pulse Ox 08/12/16 17:24 101 H 14 110/42 L 98 08/12/16 16:24 93 H 12 114/46 L 99 08/12/16 16:00 97.9 F 08/12/16 15:25 115 H 23 122/92 H 95 08/12/16 15:00 115 H 12 94 L 08/12/16 14:24 120/75 Intake and Output (Last 8hrs): Intake & Output 08/12/16 08/12/16 08/12/16 06:59 14:59 22:59 Intake Total 166.4 711.0 600.5 Output Total 360 185 20 Balance -193.6 526.0 580.5 Intake: IV 0 87 Intake, IV Amount 66.4 264.0 120.5 Right Antecubital 66.4 105.2 20.5 right upper arm 8.8 rt upper arm 150 100 Oral 100 360 480 Output: Urine 360 185 20 Urethral (Jones) 360 185 20 Other: # Bowel Movements 1 - Medications Active Medications: Active Medications Generic Name Dose Route Start Last Admin Trade Name Freq PRN Reason Stop Dose Admin Acetaminophen 650 mg 08/09/16 09:02 08/12/16 09:53 Tylenol 325mg Tab PO 650 mg Q6 PRN Administration Pain, Mild (1-3) Digoxin 0.25 mg 08/11/16 18:00 08/12/16 17:08 Lanoxin PO 0.25 mg DAILY@1800 [place] Administration Diltiazem HCl 30 mg 08/12/16 16:15 08/12/16 16:48 Cardizem PO 30 mg Q8H [place] Administration Heparin Sodium/Sodium Chloride 25,000 units in 250 mls @ 7.119 mls/hr 12:30 08/12/16 17:06 Heparin 95135 Units/250ml 1/2 Normal Saline IV 11.3 units/kg/hr .Q24H PRN 6.048 mls/hr PROTOCOL Administration Protocol 13.3 UNITS/KG/HR Metoprolol Tartrate 25 mg 08/12/16 18:00 Lopressor PO BID [place] Morphine Sulfate 1 mg 08/11/16 15:44 08/12/16 12:22 Morphine IV 1 mg Q4 PRN Administration Pain, severe (8-10) Pantoprazole Sodium 40 mg 08/11/16 10:00 08/12/16 09:55 Protonix Ec Tab PO 40 mg DAILY [place] Administration - Patient Studies Lab Studies: Lab Studies 08/12/16 08/12/16 08/12/16 Range/Units 17:00 16:14 09:20 WBC (4.8-10.8) K/uL RBC (3.80-5.20) Mil/uL Hgb (11.0-16.0) g/dL Hct (34.0-47.0) % MCV (81.0-99.0) fL MCH (27.0-31.0) pg MCHC (33.0-37.0) g/dL RDW (11.5-14.5) % Plt Count (130-400) K/uL MPV (7.2-11.7) fL Neut % (Auto) (50.0-75.0) % Lymph % (Auto) (20.0-40.0) % [place] % (Auto) (0.0-10.0) % Eos % (Auto) (0.0-4.0) % Baso % (Auto) (0.0-2.0) % Neut # (1.8-7.0) K/uL Lymph # (1.0-4.3) K/uL [place] # (0.0-0.8) K/uL Eos # (0.0-0.7) K/uL Baso # (0.0-0.2) K/uL Neutrophils % (Manual) (50-75) % Band Neutrophils % (0-2) % Lymphocytes % (Manual) (20-40) % Monocytes % (Manual) (0-10) % Platelet Estimate (NORMAL) RBC Morphology APTT 99 H D 174 H* D (21-34) SECONDS Sodium (132-148) mmol/L Potassium (3.6-5.2) mmol/L Chloride (98-107) mmol/L Carbon Dioxide (22-30) mmol/L Anion Gap (10-20) BUN (7-17) mg/dL Creatinine (0.7-1.2) MG/DL Est GFR ( Amer) Est GFR (Non-Af Amer) Random Glucose (65-105) mg/dL Calcium (8.6-10.4) mg/dl Phosphorus (2.5-4.5) mg/dL Magnesium (1.6-2.3) mg/dL Total Bilirubin (0.2-1.3) mg/dL AST (14-36) U/L ALT (9-52) U/L Alkaline Phosphatase (38-126) U/L Troponin I 0.2580 H* (0.00-0.120) ng/mL NT-Pro-B Natriuret Pep 41510 H (0-900) pg/mL Total Protein (6.3-8.3) g/dL Albumin (3.5-5.0) g/dL Globulin (2.2-3.9) gm/dL Albumin/Globulin Ratio (1.0-2.1) 08/12/16 08/12/16 08/12/16 Range/Units 06:26 06:25 03:04 WBC 8.7 (4.8-10.8) K/uL RBC 3.25 L (3.80-5.20) Mil/uL Hgb 12.0 (11.0-16.0) g/dL Hct 36.5 (34.0-47.0) % MCV 112.4 H (81.0-99.0) fL MCH 37.0 H (27.0-31.0) pg MCHC 32.9 L (33.0-37.0) g/dL RDW 17.3 H (11.5-14.5) % Plt Count 184 (130-400) K/uL MPV 9.4 (7.2-11.7) fL Neut % (Auto) 85.5 H (50.0-75.0) % Lymph % (Auto) 3.5 L (20.0-40.0) % [place] % (Auto) 10.3 H (0.0-10.0) % Eos % (Auto) 0.6 (0.0-4.0) % Baso % (Auto) 0.1 (0.0-2.0) % Neut # 7.5 H (1.8-7.0) K/uL Lymph # 0.3 L (1.0-4.3) K/uL [place] # 0.9 H (0.0-0.8) K/uL Eos # 0.0 (0.0-0.7) K/uL Baso # 0.0 (0.0-0.2) K/uL Neutrophils % (Manual) 78 H (50-75) % Band Neutrophils % 6 H (0-2) % Lymphocytes % (Manual) 5 L (20-40) % Monocytes % (Manual) 11 H (0-10) % Platelet Estimate Normal (NORMAL) RBC Morphology Normal APTT 87 H D (21-34) SECONDS Sodium 140 (132-148) mmol/L Potassium 3.6 (3.6-5.2) mmol/L Chloride 106 (98-107) mmol/L Carbon Dioxide 33 H (22-30) mmol/L Anion Gap 5 L (10-20) BUN 20 H (7-17) mg/dL Creatinine 0.7 (0.7-1.2) MG/DL Est GFR ( Amer) > 60 Est GFR (Non-Af Amer) > 60 Random Glucose 94 (65-105) mg/dL Calcium 7.7 L (8.6-10.4) mg/dl Phosphorus 2.0 L (2.5-4.5) mg/dL Magnesium 1.6 (1.6-2.3) mg/dL Total Bilirubin 0.6 (0.2-1.3) mg/dL AST 24 (14-36) U/L ALT 43 (9-52) U/L Alkaline Phosphatase 89 (38-126) U/L Troponin I (0.00-0.120) ng/mL NT-Pro-B Natriuret Pep (0-900) pg/mL Total Protein 5.2 L (6.3-8.3) g/dL Albumin 2.3 L (3.5-5.0) g/dL Globulin 2.8 (2.2-3.9) gm/dL Albumin/Globulin Ratio 0.8 L (1.0-2.1) 08/12/16 08/11/16 Range/Units 01:12 18:41 WBC (4.8-10.8) K/uL RBC (3.80-5.20) Mil/uL Hgb (11.0-16.0) g/dL Hct (34.0-47.0) % MCV (81.0-99.0) fL MCH (27.0-31.0) pg MCHC (33.0-37.0) g/dL RDW (11.5-14.5) % Plt Count (130-400) K/uL MPV (7.2-11.7) fL Neut % (Auto) (50.0-75.0) % Lymph % (Auto) (20.0-40.0) % [place] % (Auto) (0.0-10.0) % Eos % (Auto) (0.0-4.0) % Baso % (Auto) (0.0-2.0) % Neut # (1.8-7.0) K/uL Lymph # (1.0-4.3) K/uL [place] # (0.0-0.8) K/uL Eos # (0.0-0.7) K/uL Baso # (0.0-0.2) K/uL Neutrophils % (Manual) (50-75) % Band Neutrophils % (0-2) % Lymphocytes % (Manual) (20-40) % Monocytes % (Manual) (0-10) % Platelet Estimate (NORMAL) RBC Morphology APTT 187 H* D 60 H D (21-34) SECONDS Sodium (132-148) mmol/L Potassium (3.6-5.2) mmol/L Chloride (98-107) mmol/L Carbon Dioxide (22-30) mmol/L Anion Gap (10-20) BUN (7-17) mg/dL Creatinine (0.7-1.2) MG/DL Est GFR ( Amer) Est GFR (Non-Af Amer) Random Glucose (65-105) mg/dL Calcium (8.6-10.4) mg/dl Phosphorus (2.5-4.5) mg/dL Magnesium (1.6-2.3) mg/dL Total Bilirubin (0.2-1.3) mg/dL AST (14-36) U/L ALT (9-52) U/L Alkaline Phosphatase (38-126) U/L Troponin I (0.00-0.120) ng/mL NT-Pro-B Natriuret Pep (0-900) pg/mL Total Protein (6.3-8.3) g/dL Albumin (3.5-5.0) g/dL Globulin (2.2-3.9) gm/dL Albumin/Globulin Ratio (1.0-2.1) Laboratory Results - last 24 hr 08/11/16 08/12/16 08/12/16 18:41 01:12 03:04 WBC RBC Hgb Hct MCV MCH MCHC RDW Plt Count MPV Neut % (Auto) Lymph % (Auto) [place] % (Auto) Eos % (Auto) Baso % (Auto) Neut # Lymph # [place] # Eos # Baso # Neutrophils % (Manual) Band Neutrophils % Lymphocytes % (Manual) Monocytes % (Manual) Platelet Estimate RBC Morphology APTT 60 H D 187 H* D 87 H D Sodium Potassium Chloride Carbon Dioxide Anion Gap BUN Creatinine Est GFR ( Amer) Est GFR (Non-Af Amer) Random Glucose Calcium Phosphorus Magnesium Total Bilirubin AST ALT Alkaline Phosphatase Troponin I NT-Pro-B Natriuret Pep Total Protein Albumin Globulin Albumin/Globulin Ratio 08/12/16 08/12/16 08/12/16 06:25 06:26 09:20 WBC 8.7 RBC 3.25 L Hgb 12.0 Hct 36.5 MCV 112.4 H MCH 37.0 H MCHC 32.9 L RDW 17.3 H Plt Count 184 MPV 9.4 Neut % (Auto) 85.5 H Lymph % (Auto) 3.5 L [place] % (Auto) 10.3 H Eos % (Auto) 0.6 Baso % (Auto) 0.1 Neut # 7.5 H Lymph # 0.3 L [place] # 0.9 H Eos # 0.0 Baso # 0.0 Neutrophils % (Manual) 78 H Band Neutrophils % 6 H Lymphocytes % (Manual) 5 L Monocytes % (Manual) 11 H Platelet Estimate Normal RBC Morphology Normal APTT 174 H* D Sodium 140 Potassium 3.6 Chloride 106 Carbon Dioxide 33 H Anion Gap 5 L BUN 20 H Creatinine 0.7 Est GFR ( Amer) > 60 Est GFR (Non-Af Amer) > 60 Random Glucose 94 Calcium 7.7 L Phosphorus 2.0 L Magnesium 1.6 Total Bilirubin 0.6 AST 24 ALT 43 Alkaline Phosphatase 89 Troponin I NT-Pro-B Natriuret Pep Total Protein 5.2 L Albumin 2.3 L Globulin 2.8 Albumin/Globulin Ratio 0.8 L 08/12/16 08/12/16 16:14 17:00 WBC RBC Hgb Hct MCV MCH MCHC RDW Plt Count MPV Neut % (Auto) Lymph % (Auto) [place] % (Auto) Eos % (Auto) Baso % (Auto) Neut # Lymph # [place] # Eos # Baso # Neutrophils % (Manual) Band Neutrophils % Lymphocytes % (Manual) Monocytes % (Manual) Platelet Estimate RBC Morphology APTT 99 H D Sodium Potassium Chloride Carbon Dioxide Anion Gap BUN Creatinine Est GFR ( Amer) Est GFR (Non-Af Amer) Random Glucose Calcium Phosphorus Magnesium Total Bilirubin AST ALT Alkaline Phosphatase Troponin I 0.2580 H* NT-Pro-B Natriuret Pep 90064 H Total Protein Albumin Globulin Albumin/Globulin Ratio EKG/Cardiology Studies: Cardiology / EKG Studies 08/12/16 23:00 EKG [ELECTROCARDIOGRAM] Routine Comment: Mode Of Transportation: Reason For Exam: chest pain and fall Precautions: Standard Critical Care Progress Note - Nutrition Nutrition: Nutrition Category Date Time Status NPO Diet [DIET] Diets 08/12/16 Breakfast Active NPO Diet [DIET] Diets 08/13/16 Breakfast Active Attending/Attestation - Attestation I have personally seen and examined this patient.: Yes I have fully participated in the care of the patient.: Yes I have reviewed all pertinent clinical information: Yes Notes (Text): 08/12/16 18:10 Patient seen and examined in the intensive care unit. Case discussed with house staff in the morning rounds. Patient seen by cardiology for low ejection fraction and new onset A. fib, with possible cardiac cath tomorrow Started on Lopressor Possible surgery once cleared by cardiology Continue present treatment for now
--- NOTE | 2016-08-12 15:56 | CP.PCM.CON ---
<Chris Harrington - Last Filed: 08/12/16 15:52> History of Present Illness - History of Present Illness History of Present Illness: 76 y/o F with PMH of HTN, CHF with EF of 26%, and emphysema initially presented on 08/07/16 s/p fall at home. Pt is unsure how she fell. She does not know whether she tripped or whether it was due to generalized weakness. Pt was found on the floor after an unknown time of being down on the ground. She was subsequently found to have a right hip and left femur fracture. At this time, pt was also found to be septic and placed on appropriate abx. Pt also has b/l pleural effusions along with compressive consolidations. Surgery for right hip arthroplasty was planned for when patient is medically optimized. Today, patient 's only complaint at this time is her left leg pain and generalized weakness. Denies CP, SOB, N/V/D, dysuria, numbness, tingling. PMH: HTN, CHF, Emphysema Surgical Hx: Appendectomy Social Hx: Denies alcohol or illicit drug use Allergies: Eggs Medication: Cardizem, oxycodone, ambien Review of Systems - Constitutional Constitutional: Fatigue. absent: Fever - Cardiovascular Cardiovascular: absent: Chest Pain, Irregular Heart Rhythm - Respiratory Respiratory: absent: Cough, Dyspnea - Gastrointestinal Gastrointestinal: absent: Diarrhea, Vomiting - Genitourinary Genitourinary: absent: Dysuria - Neurological Neurological: Dizziness. absent: Syncope Past Patient History - Infectious Disease Hx of Infectious Diseases: None - Tetanus Immunizations Tetanus Immunization: Unknown - Past Medical History & Family History Past Medical History?: Yes Past Family History: Reviewed and not pertinent - Past Social History Smoking Status: Heavy Smoker > 10 Cigarettes Daily Alcohol: None Drugs: Denies Home Situation {Lives}: With Family Domestic Violence: Negative - CARDIAC Hx Cardiac Disorders: No Hx Hypertension: Yes - PULMONARY Hx Bronchitis: Yes Hx Emphysema: Yes - NEUROLOGICAL Hx Neurological Disorder: No - HEENT Hx HEENT Problems: Yes Hx Cataracts: Yes - RENAL Hx Chronic Kidney Disease: No - ENDOCRINE/METABOLIC Hx Endocrine Disorders: No - HEMATOLOGICAL/ONCOLOGICAL Hx Blood Disorders: No - INTEGUMENTARY Hx Dermatological Problems: No - MUSCULOSKELETAL/RHEUMATOLOGICAL Hx Arthritis: Yes (right wrist) - GASTROINTESTINAL Hx Gastrointestinal Disorders: No - GENITOURINARY/GYNECOLOGICAL Hx Genitourinary Disorders: No - PSYCHIATRIC Hx Anxiety: Yes Hx Substance Use: No - SURGICAL HISTORY Hx Appendectomy: Yes Hx Eye Surgery: Yes - ANESTHESIA Hx Anesthesia: Yes Hx Anesthesia Reactions: Yes ("cough") Hx Malignant Hyperthermia: No Has any member of the family had a problem w/ anesthesia?: No Meds Allergies/Adverse Reactions: Allergies Allergy/AdvReac Type Severity Reaction Status Date / Time EGG Allergy DIZZINESS Verified 08/07/16 13:37 - Medications Medications: Current Medications Acetaminophen (Tylenol 325mg Tab) 650 mg PO Q6 PRN PRN Reason: Pain, Mild (1-3) Last Admin: 08/12/16 09:53 Dose: 650 mg Digoxin (Lanoxin) 0.25 mg PO DAILY@1800 [place] Last Admin: 08/11/16 17:25 Dose: 0.25 mg Sodium Phosphate 15 mmole/ (Sodium Chloride) 255 mls @ 50 mls/hr IVPB .Q5H6M ONE Stop: 08/12/16 16:51 Last Admin: 08/12/16 12:23 Dose: 50 mls/hr Heparin Sodium/Sodium Chloride (Heparin 48217 Units/250ml 1/2 Normal Saline) 25 ,000 units in 250 mls @ 7.119 mls/hr IV .Q24H PRN; Protocol; 13.3 UNITS/KG/HR PRN Reason: PROTOCOL Morphine Sulfate (Morphine) 1 mg IV Q4 PRN PRN Reason: Pain, severe (8-10) Last Admin: 08/12/16 12:22 Dose: 1 mg Pantoprazole Sodium (Protonix Ec Tab) 40 mg PO DAILY [place] Last Admin: 08/12/16 09:55 Dose: 40 mg Physical Exam - Constitutional Appears: Non-toxic, No Acute Distress - Eye Exam Additional comments: Left eye and upper cheek bruising. No pain on palpation - ENT Exam ENT Exam: Mucous Membranes Moist - Respiratory Exam Respiratory Exam: Clear to Auscultation Bilateral, NORMAL BREATHING PATTERN. absent: Rhonchi, Wheezes - Cardiovascular Exam Cardiovascular Exam: Irregular Rhythm, +S1, +S2 - GI/Abdominal Exam GI & Abdominal Exam: Normal Bowel Sounds, Soft. absent: Tenderness - Extremities Exam Additional comments: Pain on palpation of left anterior femur. No swelling or bruising. No pain on palpation of right hip, no swelling or bruising. - Neurological Exam Neurological exam: Alert, Oriented x3 - Skin Skin Exam: Normal Color, Warm Results - Vital Signs Recent Vital Signs: Last Vital Signs Temp 97.6 F 08/12/16 12:00 Pulse 115 H 08/12/16 15:00 Resp 12 08/12/16 15:00 BP 120/75 08/12/16 14:24 Pulse Ox 94 L 08/12/16 15:00 - Labs Result Diagrams: 08/12/16 06:25 08/12/16 06:26 Labs: Laboratory Results - last 24 hr 08/11/16 08/12/16 08/12/16 18:41 01:12 03:04 WBC RBC Hgb Hct MCV MCH MCHC RDW Plt Count MPV Neut % (Auto) Lymph % (Auto) Hardy % (Auto) Eos % (Auto) Baso % (Auto) Neut # Lymph # Hardy # Eos # Baso # Neutrophils % (Manual) Band Neutrophils % Lymphocytes % (Manual) Monocytes % (Manual) Platelet Estimate RBC Morphology APTT 60 H D 187 H* D 87 H D Sodium Potassium Chloride Carbon Dioxide Anion Gap BUN Creatinine Est GFR ( Amer) Est GFR (Non-Af Amer) Random Glucose Calcium Phosphorus Magnesium Total Bilirubin AST ALT Alkaline Phosphatase Total Protein Albumin Globulin Albumin/Globulin Ratio 08/12/16 08/12/16 08/12/16 06:25 06:26 09:20 WBC 8.7 RBC 3.25 L Hgb 12.0 Hct 36.5 MCV 112.4 H MCH 37.0 H MCHC 32.9 L RDW 17.3 H Plt Count 184 MPV 9.4 Neut % (Auto) 85.5 H Lymph % (Auto) 3.5 L Hardy % (Auto) 10.3 H Eos % (Auto) 0.6 Baso % (Auto) 0.1 Neut # 7.5 H Lymph # 0.3 L Hardy # 0.9 H Eos # 0.0 Baso # 0.0 Neutrophils % (Manual) 78 H Band Neutrophils % 6 H Lymphocytes % (Manual) 5 L Monocytes % (Manual) 11 H Platelet Estimate Normal RBC Morphology Normal APTT 174 H* D Sodium 140 Potassium 3.6 Chloride 106 Carbon Dioxide 33 H Anion Gap 5 L BUN 20 H Creatinine 0.7 Est GFR ( Amer) > 60 Est GFR (Non-Af Amer) > 60 Random Glucose 94 Calcium 7.7 L Phosphorus 2.0 L Magnesium 1.6 Total Bilirubin 0.6 AST 24 ALT 43 Alkaline Phosphatase 89 Total Protein 5.2 L Albumin 2.3 L Globulin 2.8 Albumin/Globulin Ratio 0.8 L Assessment & Plan (1) Arrhythmia Assessment and Plan: Pt found to initially have multifocal atrial tachycardia We will add Cardizem 30 mg q8h and monitor patient closely Status: Acute (2) CHF exacerbation Assessment and Plan: Pt with new onset heart failure with EF of 26%. Pt was known to have a normal stress test 2 years ago. Pt will undergo a Radial cardiac cath in AM to further evaluate heart failure. Once catheterized, pt will again be assessed for right hip repair. Will order serial troponins. Will order BNP. NPO after midnight for procedure. Status: Acute <Max Peacock - Last Filed: 08/12/16 17:51> Meds - Medications Medications: Current Medications Acetaminophen (Tylenol 325mg Tab) 650 mg PO Q6 PRN PRN Reason: Pain, Mild (1-3) Last Admin: 08/12/16 09:53 Dose: 650 mg Digoxin (Lanoxin) 0.25 mg PO DAILY@1800 [facility] Last Admin: 08/12/16 17:08 Dose: 0.25 mg Diltiazem HCl (Cardizem) 30 mg PO Q8H [facility] Last Admin: 08/12/16 16:48 Dose: 30 mg Heparin Sodium/Sodium Chloride (Heparin 80290 Units/250ml 1/2 Normal Saline) 25 ,000 units in 250 mls @ 7.119 mls/hr IV .Q24H PRN; Protocol; 13.3 UNITS/KG/HR PRN Reason: PROTOCOL Last Admin: 08/12/16 17:06 Dose: 11.3 units/kg/hr, 6.048 mls/hr Metoprolol Tartrate (Lopressor) 25 mg PO BID [facility] Morphine Sulfate (Morphine) 1 mg IV Q4 PRN PRN Reason: Pain, severe (8-10) Last Admin: 08/12/16 12:22 Dose: 1 mg Pantoprazole Sodium (Protonix Ec Tab) 40 mg PO DAILY [facility] Last Admin: 08/12/16 09:55 Dose: 40 mg Results - Vital Signs Recent Vital Signs: Last Vital Signs Temp 97.9 F 08/12/16 16:00 Pulse 93 H 08/12/16 16:24 Resp 12 08/12/16 16:24 BP 114/46 L 08/12/16 16:24 Pulse Ox 99 08/12/16 16:24 - Labs Result Diagrams: 08/12/16 06:25 08/12/16 06:26 Labs: Laboratory Results - last 24 hr 08/11/16 08/12/16 08/12/16 18:41 01:12 03:04 WBC RBC Hgb Hct MCV MCH MCHC RDW Plt Count MPV Neut % (Auto) Lymph % (Auto) Hardy % (Auto) Eos % (Auto) Baso % (Auto) Neut # Lymph # Hardy # Eos # Baso # Neutrophils % (Manual) Band Neutrophils % Lymphocytes % (Manual) Monocytes % (Manual) Platelet Estimate RBC Morphology APTT 60 H D 187 H* D 87 H D Sodium Potassium Chloride Carbon Dioxide Anion Gap BUN Creatinine Est GFR ( Amer) Est GFR (Non-Af Amer) Random Glucose Calcium Phosphorus Magnesium Total Bilirubin AST ALT Alkaline Phosphatase NT-Pro-B Natriuret Pep Total Protein Albumin Globulin Albumin/Globulin Ratio 08/12/16 08/12/16 08/12/16 06:25 06:26 09:20 WBC 8.7 RBC 3.25 L Hgb 12.0 Hct 36.5 MCV 112.4 H MCH 37.0 H MCHC 32.9 L RDW 17.3 H Plt Count 184 MPV 9.4 Neut % (Auto) 85.5 H Lymph % (Auto) 3.5 L Hardy % (Auto) 10.3 H Eos % (Auto) 0.6 Baso % (Auto) 0.1 Neut # 7.5 H Lymph # 0.3 L Hardy # 0.9 H Eos # 0.0 Baso # 0.0 Neutrophils % (Manual) 78 H Band Neutrophils % 6 H Lymphocytes % (Manual) 5 L Monocytes % (Manual) 11 H Platelet Estimate Normal RBC Morphology Normal APTT 174 H* D Sodium 140 Potassium 3.6 Chloride 106 Carbon Dioxide 33 H Anion Gap 5 L BUN 20 H Creatinine 0.7 Est GFR ( Amer) > 60 Est GFR (Non-Af Amer) > 60 Random Glucose 94 Calcium 7.7 L Phosphorus 2.0 L Magnesium 1.6 Total Bilirubin 0.6 AST 24 ALT 43 Alkaline Phosphatase 89 NT-Pro-B Natriuret Pep Total Protein 5.2 L Albumin 2.3 L Globulin 2.8 Albumin/Globulin Ratio 0.8 L 08/12/16 08/12/16 16:14 17:00 WBC RBC Hgb Hct MCV MCH MCHC RDW Plt Count MPV Neut % (Auto) Lymph % (Auto) Hardy % (Auto) Eos % (Auto) Baso % (Auto) Neut # Lymph # Hardy # Eos # Baso # Neutrophils % (Manual) Band Neutrophils % Lymphocytes % (Manual) Monocytes % (Manual) Platelet Estimate RBC Morphology APTT 99 H D Sodium Potassium Chloride Carbon Dioxide Anion Gap BUN Creatinine Est GFR ( Amer) Est GFR (Non-Af Amer) Random Glucose Calcium Phosphorus Magnesium Total Bilirubin AST ALT Alkaline Phosphatase NT-Pro-B Natriuret Pep 95830 H Total Protein Albumin Globulin Albumin/Globulin Ratio Attending/Attestation - Attestation I have personally seen and examined this patient.: Yes I have fully participated in the care of the patient.: Yes I have reviewed all pertinent clinical information: Yes Notes (Text): 08/12/16 17:51 cardiac cath and possible vest max chf tx
[2016-08-12] MEDS: Digoxin 250 mcg (0.25 mg) Tab PO SCH (17:08)
[2016-08-12 17:58] LABS: TROPONIN I 0.258 ng/mL (0.00-0.120)
[2016-08-13 06:28] LABS: BASO % 0.4 % (0.0-2.0); EOS # 0.1 K/uL (0.0-0.7); HEMOGLOBIN 12.6 g/dL (11.0-16.0); LYMPH # 0.4 K/uL (1.0-4.3); LYMPH % 3.8 % (20.0-40.0); MEAN CELL VOLUME 112.4 fL (81.0-99.0); MEAN CORPUSCULAR HEMOGLOBIN 36.6 pg (27.0-31.0); MEAN CORPUSCULAR HGB CONC 32.5 g/dL (33.0-37.0); MEAN PLATELET VOLUME 9.6 fL (7.2-11.7); MONO % 8.9 % (0.0-10.0); NEUT % 85.9 % (50.0-75.0); NRBC % 0.1 % (0.0-2.0); PLATELET COUNT 207 K/uL (130-400); RBC 3.45 Mil/uL (3.80-5.20); RED CELL DISTRIBUTION WIDTH 17.5 % (11.5-14.5); WHITE BLOOD COUNT 11.6 K/uL (4.8-10.8)
[2016-08-13 06:47] LABS: ALBUMIN 2.6 g/dL (3.5-5.0)
[2016-08-13 06:49] LABS: GFR AFRICAN-AMERICAN > 60; GFR NON-AFRICAN AMERICAN > 60
[2016-08-13 06:50] LABS: ALB/GLOB RATIO 0.9 (1.0-2.1); ALT/SGPT 42 U/L (9-52); AST/SGOT 25 U/L (14-36); BLOOD UREA NITROGEN 23 mg/dL (7-17)
[2016-08-13 06:51] LABS: MAGNESIUM 1.8 mg/dL (1.6-2.3)
[2016-08-13 06:57] LABS: INR 0.9; PROTHROMBIN TIME 10.3 SECONDS (9.7-12.2)
[2016-08-13] MEDS ORDERED: Sodium Phosphate 15 MMOLE in Sodium Chloride 0.9% 250 ML IVPB ONE (07:45)
--- NOTE | 2016-08-13 07:50 | CP.PCM.PN ---
Subjective - Date & Time of Evaluation Date of Evaluation: 08/13/16 Time of Evaluation: 07:52 - Subjective Subjective: Complains of pain in right hip. Is anxious to have hip surgery completed and be able to get out of bed. Objective - Vital Signs/Intake and Output Vital Signs (last 24 hours): Temp Pulse Resp BP Pulse Ox 98.6 F 77 16 133/73 96 08/13/16 04:00 08/13/16 06:24 08/13/16 06:24 08/13/16 06:24 08/13/16 06:24 Intake and Output: 08/13/16 08/13/16 06:59 18:59 Intake Total 319.3 Output Total 422 Balance -102.7 - Medications Medications: Current Medications Acetaminophen (Tylenol 325mg Tab) 650 mg PO Q6 PRN PRN Reason: Pain, Mild (1-3) Last Admin: 08/12/16 09:53 Dose: 650 mg Digoxin (Lanoxin) 0.25 mg PO DAILY@1800 [place] Last Admin: 08/12/16 17:08 Dose: 0.25 mg Diltiazem HCl (Cardizem) 30 mg PO Q8H [place] Last Admin: 08/12/16 23:58 Dose: 30 mg Heparin Sodium/Sodium Chloride (Heparin 49821 Units/250ml 1/2 Normal Saline) 25 ,000 units in 250 mls @ 7.119 mls/hr IV .Q24H PRN; Protocol; 13.3 UNITS/KG/HR PRN Reason: PROTOCOL Last Admin: 08/12/16 17:06 Dose: 11.3 units/kg/hr, 6.048 mls/hr Sodium Phosphate 15 mmole/ (Sodium Chloride) 255 mls @ 50 mls/hr IVPB .Q5H6M ONE Stop: 08/13/16 12:50 Metoprolol Tartrate (Lopressor) 25 mg PO BID [facility] Last Admin: 08/12/16 19:13 Dose: 25 mg Morphine Sulfate (Morphine) 1 mg IV Q4 PRN PRN Reason: Pain, severe (8-10) Last Admin: 08/12/16 12:22 Dose: 1 mg Pantoprazole Sodium (Protonix Ec Tab) 40 mg PO DAILY [facility] Last Admin: 08/12/16 09:55 Dose: 40 mg - Labs Labs: 08/13/16 06:23 08/13/16 06:23 PT 10.3 SECONDS (9.7-12.2) 08/13/16 06:23 INR 0.9 08/13/16 06:23 APTT 60 SECONDS (21-34) H 08/13/16 06:23 - Extremities Exam Additional comments: LLE: mild TTP to greater troch, mild swelling. BLE: +ROM ankle DF/PF, sensation intact, calves soft NT neg homans 1+pitting edema, +DP pulses RLE: shortened, ER Assessment and Plan (1) Garden grade IV closed subcapital fracture of proximal end of right femur Assessment & Plan: For right THR when med/cardio optimized for right heart cath today awaiting cardio clearance VTE proph, still on heparin drip T&C NPO p MN for OR 08/14 1130am planned d/w Dr. Elena, agrees with above Status: Acute (2) Degenerative joint disease of right hip Assessment & Plan: see above Status: Chronic (3) Closed fracture of greater trochanter of left femur Assessment & Plan: non operative pain mgmt PT/OT after right hip surgery VTE proph consider sequentials Status: Acute
[2016-08-13 08:26] LABS: ANISOCYTOSIS SLIGHT; BANDS 8 % (0-2); EOSINOPHIL 1 % (0-4); LYMPHOCYTE 3 % (20-40); MONOCYTE 9 % (0-10); NEUTROPHIL 79 % (50-75); PLATELET ESTIMATE NORMAL (NORMAL); TOTAL CELLS COUNTED 100
--- NOTE | 2016-08-13 08:51 | RAD ---
Chest x-ray single frontal view History: Congestive heart failure. Comparison: None available. Findings: Biapical pleural thickening with upper lobe granulomatous changes. Diffuse increased interstitial lung markings. Prominent airspace opacities in the mid to lower lung zones with associated moderate bilateral pleural effusions. Scattered nodular densities throughout both lungs. Cardiomegaly. Calcification at the aortic knob. Degenerative changes in the spine and shoulders. Impression: Biapical pleural thickening with upper lobe granulomatous changes. Diffuse increased interstitial lung markings. Prominent airspace opacities in the mid to lower lung zones with associated moderate bilateral pleural effusions. Scattered nodular densities throughout both lungs. Cardiomegaly.
[2016-08-13] MEDS: Pantoprazole 40 mg EC Tab PO SCH (09:57)
[2016-08-13] MEDS ORDERED: Nitroglycerin 50mg in D5W 50 MG/250 ML BOTTLE IV ONE (10:37)
[2016-08-13] MEDS ORDERED: Iohexol 350mg/ml 100 ML ONE (10:40)
[2016-08-13] MEDS ORDERED: Midazolam 2 MG/2 ML VIAL ONE ×2 (10:45→19:56)
--- NOTE | 2016-08-13 11:36 | CP.CCUPN ---
<Donnell Grijalva - Last Filed: 08/13/16 11:29> CCU Subjective - Physician Review Subjective (Free Text): 08/11/16 15:46 Patient seen and examined at the bedside. No acute distress. No acute events overnight. Nursing staff reports no issues. Patient's pain is controlled with PO tylenol at this point. Morphine added for additional pain control PRN. The patient has an acute exacerbation of CHF and remains medically unfit for OR for TAMARA. The patient denies fever, chills, headache, chest pain, SOB, abdominal pain, N/V/D/C. Today on rounds, the patient was placed on scheduled PO digoxin 0.25mg, and IV morphine 1mg q4 prn was added for additional pain control. The topic of advanced directives was also discussed at length. 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 Under circumstances where recovery to a quality of live that will enable her to care for her is not certain, she wishes no extraordinary measures to be taken. 08/12/16 14:52 Patient seen and examined at the bedside. No acute distress. No acute events overnight. Nursing staff reports no issues. Patient's pain is controlled with PO tylenol and morphine PRN. The patient has been tentatively scheduled for OR at 11:30am with Dr. Elena pending medical risk assessment and clearance. The patient reports continued right leg pain. Per the patient, the pain is adequately controlled. The patient denies fever, chills, headache, chest pain, SOB, abdominal pain, N/V/D/C. Today on rounds, the patient's heparin drip was changed to cardiac protocol. Dr. Peacock was consulted for chronic low ejection systolic heart failure and new onset a-fib. The patient's phosphorous, magnesium, and potassium were replaced. To supplement her diet, Boost was added with all meals and ensure was added one time daily at night. 08/13/16 11:30 Patient seen and examined at the bedside. No acute distress. No acute events overnight. Nursing staff reports no issues. Patient is for cardiac cath with Dr. Cantu today. Patient is in pain this morning. 1 dose of morphine was given with good result. The patient is tentatively scheduled for the OR on with Dr. Elena pending medical risk assessment and stratification. The patient denies fever, chills, headache, chest pain, SOB, abdominal pain, N/V/D/ C. Today on rounds, The patients phosphorous was replaced. Repeat TONY panel and EKG were also ordered for 13:00 t0 trend mildly elevated troponin measurements. Critical Care Time Spent (in minutes): 60 CCU Objective - Vital Signs / Intake & Output Vital Signs (Last 4 hours): Vital Signs Temp Pulse Resp BP Pulse Ox 08/13/16 10:00 91 H 15 08/13/16 09:56 129/51 L 08/13/16 09:24 87 19 129/51 L 91 L 08/13/16 09:00 78 14 96 08/13/16 08:24 90 17 136/74 93 L 08/13/16 08:00 97.8 F 96 H 20 91 L Intake and Output (Last 8hrs): Intake & Output 08/12/16 08/13/16 08/13/16 22:59 06:59 14:59 Intake Total 1117.1 48.8 18.3 Output Total 187 325 120 Balance 930.1 -276.2 -101.7 Intake: Intake, IV Amount 157.1 48.8 18.3 Right Antecubital 51.0 48.8 18.3 right upper arm 6.1 rt upper arm 100 Oral 960 0 Output: Urine 187 325 120 Urethral (Jones) 187 325 120 - Physical Exam Head: Positive for: Normocephalic, Ecchymosis, Other (Contusions over left side of face). Negative for: Atraumatic Pupils: Positive for: PERRL Extroacular Muscles: Positive for: EOMI Conjunctiva: Positive for: Normal Mouth: Positive for: Dry Neck: Positive for: Normal Range of Motion. Negative for: JVD, Bruit Respiratory/Chest: Positive for: Good Air Exchange, Decreased Breath Sounds ( bibasilar R > L), Rales (bibasilar ). Negative for: Clear to Auscultation, Respiratory Distress, Accessory Muscle Use, Wheezes, Retracting, Rhonchi Cardiovascular: Positive for: Regular Rate and Rhythm, Normal S1, S2, Peripheal Pulses Present. Negative for: Murmurs Abdomen: Positive for: Normal Bowel Sounds. Negative for: Tenderness, Distention, Peritoneal Signs, Rebound, Guarding Upper Extremity: Positive for: Normal Inspection, NORMAL PULSES, Neurovascularly Intact Lower Extremity: Positive for: NORMAL PULSES, Deformity (right leg shotened and externally rotated ), Neurovascularly Intact, Other (tenderness over b/l hips to palpation). Negative for: Normal Inspection, Normal ROM Neurological: Positive for: CN II-XII Intact, Speech Normal, Motor Func Grossly Intact Skin: Positive for: Warm, Dry, Normal Color. Negative for: Rashes Psychiatric: Positive for: Alert, Oriented x 3 - Medications Active Medications: Active Medications Generic Name Dose Route Start Last Admin Trade Name Freq PRN Reason Stop Dose Admin Acetaminophen 650 mg 08/09/16 09:02 08/12/16 09:53 Tylenol 325mg Tab PO 650 mg Q6 PRN Administration Pain, Mild (1-3) Digoxin 0.25 mg 08/11/16 18:00 08/12/16 17:08 Lanoxin PO 0.25 mg DAILY@1800 [place] Administration Diltiazem HCl 30 mg 08/12/16 16:15 08/13/16 08:31 Cardizem PO 30 mg Q8H [place] Administration Heparin Sodium/Sodium Chloride 25,000 units in 250 mls @ 7.119 mls/hr 12:30 08/12/16 17:06 Heparin 74804 Units/250ml 1/2 Normal Saline IV 11.3 units/kg/hr .Q24H PRN 6.048 mls/hr PROTOCOL Administration Protocol 13.3 UNITS/KG/HR Sodium Phosphate 15 mmole/ 255 mls @ 50 mls/hr 08/13/16 07:45 08/13/16 09:57 Sodium Chloride IVPB 08/13/16 12:50 50 mls/hr .Q5H6M ONE Administration Metoprolol Tartrate 25 mg 08/12/16 18:00 08/13/16 09:56 Lopressor PO 25 mg BID [place] Administration Morphine Sulfate 1 mg 08/11/16 15:44 08/13/16 08:29 Morphine IV 1 mg Q4 PRN Administration Pain, severe (8-10) Pantoprazole Sodium 40 mg 08/11/16 10:00 08/13/16 09:57 Protonix Ec Tab PO 40 mg DAILY [place] Administration - Patient Studies Lab Studies: Lab Studies 08/13/16 08/13/16 08/13/16 Range/Units 06:51 06:23 06:23 WBC (4.8-10.8) K/uL RBC (3.80-5.20) Mil/uL Hgb (11.0-16.0) g/dL Hct (34.0-47.0) % MCV (81.0-99.0) fL MCH (27.0-31.0) pg MCHC (33.0-37.0) g/dL RDW (11.5-14.5) % Plt Count (130-400) K/uL MPV (7.2-11.7) fL Neut % (Auto) (50.0-75.0) % Lymph % (Auto) (20.0-40.0) % Walker % (Auto) (0.0-10.0) % Eos % (Auto) (0.0-4.0) % Baso % (Auto) (0.0-2.0) % Neut # (1.8-7.0) K/uL Lymph # (1.0-4.3) K/uL Walker # (0.0-0.8) K/uL Eos # (0.0-0.7) K/uL Baso # (0.0-0.2) K/uL Neutrophils % (Manual) (50-75) % Band Neutrophils % (0-2) % Lymphocytes % (Manual) (20-40) % Monocytes % (Manual) (0-10) % Eosinophils % (Manual) (0-4) % Platelet Estimate (NORMAL) Basophilic Stippling Anisocytosis (manual) Macrocytosis (manual) PT 10.3 (9.7-12.2) SECONDS INR 0.9 APTT 60 H (21-34) SECONDS Sodium 138 (132-148) mmol/L Potassium 4.3 (3.6-5.2) mmol/L Chloride 103 (98-107) mmol/L Carbon Dioxide 32 H (22-30) mmol/L Anion Gap 7 L (10-20) BUN 23 H (7-17) mg/dL Creatinine 0.6 L (0.7-1.2) MG/DL Est GFR ( Amer) > 60 Est GFR (Non-Af Amer) > 60 Random Glucose 88 (65-105) mg/dL Calcium 8.0 L (8.6-10.4) mg/dl Phosphorus 2.3 L (2.5-4.5) mg/dL Magnesium 1.8 (1.6-2.3) mg/dL Total Bilirubin 0.6 (0.2-1.3) mg/dL AST 25 (14-36) U/L ALT 42 (9-52) U/L Alkaline Phosphatase 107 (38-126) U/L Troponin I 0.2740 H* (0.00-0.120) ng/mL NT-Pro-B Natriuret Pep (0-900) pg/mL Total Protein 5.6 L (6.3-8.3) g/dL Albumin 2.6 L (3.5-5.0) g/dL Globulin 3.0 (2.2-3.9) gm/dL Albumin/Globulin Ratio 0.9 L (1.0-2.1) Blood Type B POSITIVE Antibody Screen Negative 08/13/16 08/13/16 08/13/16 Range/Units 06:23 00:50 00:50 WBC 11.6 H (4.8-10.8) K/uL RBC 3.45 L (3.80-5.20) Mil/uL Hgb 12.6 (11.0-16.0) g/dL Hct 38.8 (34.0-47.0) % MCV 112.4 H (81.0-99.0) fL MCH 36.6 H (27.0-31.0) pg MCHC 32.5 L (33.0-37.0) g/dL RDW 17.5 H (11.5-14.5) % Plt Count 207 (130-400) K/uL MPV 9.6 (7.2-11.7) fL Neut % (Auto) 85.9 H (50.0-75.0) % Lymph % (Auto) 3.8 L (20.0-40.0) % Walker % (Auto) 8.9 (0.0-10.0) % Eos % (Auto) 1.0 (0.0-4.0) % Baso % (Auto) 0.4 (0.0-2.0) % Neut # 10.0 H (1.8-7.0) K/uL Lymph # 0.4 L (1.0-4.3) K/uL Walker # 1.0 H (0.0-0.8) K/uL Eos # 0.1 (0.0-0.7) K/uL Baso # 0.0 (0.0-0.2) K/uL Neutrophils % (Manual) 79 H (50-75) % Band Neutrophils % 8 H (0-2) % Lymphocytes % (Manual) 3 L (20-40) % Monocytes % (Manual) 9 (0-10) % Eosinophils % (Manual) 1 (0-4) % Platelet Estimate Normal (NORMAL) Basophilic Stippling Slight Anisocytosis (manual) Slight Macrocytosis (manual) Moderate PT (9.7-12.2) SECONDS INR APTT 57 H D (21-34) SECONDS Sodium (132-148) mmol/L Potassium (3.6-5.2) mmol/L Chloride (98-107) mmol/L Carbon Dioxide (22-30) mmol/L Anion Gap (10-20) BUN (7-17) mg/dL Creatinine (0.7-1.2) MG/DL Est GFR ( Amer) Est GFR (Non-Af Amer) Random Glucose (65-105) mg/dL Calcium (8.6-10.4) mg/dl Phosphorus (2.5-4.5) mg/dL Magnesium (1.6-2.3) mg/dL Total Bilirubin (0.2-1.3) mg/dL AST (14-36) U/L ALT (9-52) U/L Alkaline Phosphatase (38-126) U/L Troponin I 0.2550 H* (0.00-0.120) ng/mL NT-Pro-B Natriuret Pep (0-900) pg/mL Total Protein (6.3-8.3) g/dL Albumin (3.5-5.0) g/dL Globulin (2.2-3.9) gm/dL Albumin/Globulin Ratio (1.0-2.1) Blood Type Antibody Screen 08/12/16 08/12/16 Range/Units 17:00 16:14 WBC (4.8-10.8) K/uL RBC (3.80-5.20) Mil/uL Hgb (11.0-16.0) g/dL Hct (34.0-47.0) % MCV (81.0-99.0) fL MCH (27.0-31.0) pg MCHC (33.0-37.0) g/dL RDW (11.5-14.5) % Plt Count (130-400) K/uL MPV (7.2-11.7) fL Neut % (Auto) (50.0-75.0) % Lymph % (Auto) (20.0-40.0) % Walker % (Auto) (0.0-10.0) % Eos % (Auto) (0.0-4.0) % Baso % (Auto) (0.0-2.0) % Neut # (1.8-7.0) K/uL Lymph # (1.0-4.3) K/uL Walker # (0.0-0.8) K/uL Eos # (0.0-0.7) K/uL Baso # (0.0-0.2) K/uL Neutrophils % (Manual) (50-75) % Band Neutrophils % (0-2) % Lymphocytes % (Manual) (20-40) % Monocytes % (Manual) (0-10) % Eosinophils % (Manual) (0-4) % Platelet Estimate (NORMAL) Basophilic Stippling Anisocytosis (manual) Macrocytosis (manual) PT (9.7-12.2) SECONDS INR APTT 99 H D (21-34) SECONDS Sodium (132-148) mmol/L Potassium (3.6-5.2) mmol/L Chloride (98-107) mmol/L Carbon Dioxide (22-30) mmol/L Anion Gap (10-20) BUN (7-17) mg/dL Creatinine (0.7-1.2) MG/DL Est GFR ( Amer) Est GFR (Non-Af Amer) Random Glucose (65-105) mg/dL Calcium (8.6-10.4) mg/dl Phosphorus (2.5-4.5) mg/dL Magnesium (1.6-2.3) mg/dL Total Bilirubin (0.2-1.3) mg/dL AST (14-36) U/L ALT (9-52) U/L Alkaline Phosphatase (38-126) U/L Troponin I 0.2580 H* (0.00-0.120) ng/mL NT-Pro-B Natriuret Pep 37285 H (0-900) pg/mL Total Protein (6.3-8.3) g/dL Albumin (3.5-5.0) g/dL Globulin (2.2-3.9) gm/dL Albumin/Globulin Ratio (1.0-2.1) Blood Type Antibody Screen Laboratory Results - last 24 hr 08/12/16 08/12/16 08/13/16 16:14 17:00 00:50 WBC RBC Hgb Hct MCV MCH MCHC RDW Plt Count MPV Neut % (Auto) Lymph % (Auto) Walker % (Auto) Eos % (Auto) Baso % (Auto) Neut # Lymph # Walker # Eos # Baso # Neutrophils % (Manual) Band Neutrophils % Lymphocytes % (Manual) Monocytes % (Manual) Eosinophils % (Manual) Platelet Estimate Basophilic Stippling Anisocytosis (manual) Macrocytosis (manual) PT INR APTT 99 H D Sodium Potassium Chloride Carbon Dioxide Anion Gap BUN Creatinine Est GFR ( Amer) Est GFR (Non-Af Amer) Random Glucose Calcium Phosphorus Magnesium Total Bilirubin AST ALT Alkaline Phosphatase Troponin I 0.2580 H* 0.2550 H* NT-Pro-B Natriuret Pep 57966 H Total Protein Albumin Globulin Albumin/Globulin Ratio Blood Type Antibody Screen 08/13/16 08/13/16 08/13/16 00:50 06:23 06:23 WBC 11.6 H RBC 3.45 L Hgb 12.6 Hct 38.8 MCV 112.4 H MCH 36.6 H MCHC 32.5 L RDW 17.5 H Plt Count 207 MPV 9.6 Neut % (Auto) 85.9 H Lymph % (Auto) 3.8 L Walker % (Auto) 8.9 Eos % (Auto) 1.0 Baso % (Auto) 0.4 Neut # 10.0 H Lymph # 0.4 L Walker # 1.0 H Eos # 0.1 Baso # 0.0 Neutrophils % (Manual) 79 H Band Neutrophils % 8 H Lymphocytes % (Manual) 3 L Monocytes % (Manual) 9 Eosinophils % (Manual) 1 Platelet Estimate Normal Basophilic Stippling Slight Anisocytosis (manual) Slight Macrocytosis (manual) Moderate PT 10.3 INR 0.9 APTT 57 H D 60 H Sodium Potassium Chloride Carbon Dioxide Anion Gap BUN Creatinine Est GFR ( Amer) Est GFR (Non-Af Amer) Random Glucose Calcium Phosphorus Magnesium Total Bilirubin AST ALT Alkaline Phosphatase Troponin I NT-Pro-B Natriuret Pep Total Protein Albumin Globulin Albumin/Globulin Ratio Blood Type Antibody Screen 08/13/16 08/13/16 06:23 06:51 WBC RBC Hgb Hct MCV MCH MCHC RDW Plt Count MPV Neut % (Auto) Lymph % (Auto) Walker % (Auto) Eos % (Auto) Baso % (Auto) Neut # Lymph # Walker # Eos # Baso # Neutrophils % (Manual) Band Neutrophils % Lymphocytes % (Manual) Monocytes % (Manual) Eosinophils % (Manual) Platelet Estimate Basophilic Stippling Anisocytosis (manual) Macrocytosis (manual) PT INR APTT Sodium 138 Potassium 4.3 Chloride 103 Carbon Dioxide 32 H Anion Gap 7 L BUN 23 H Creatinine 0.6 L Est GFR ( Amer) > 60 Est GFR (Non-Af Amer) > 60 Random Glucose 88 Calcium 8.0 L Phosphorus 2.3 L Magnesium 1.8 Total Bilirubin 0.6 AST 25 ALT 42 Alkaline Phosphatase 107 Troponin I 0.2740 H* NT-Pro-B Natriuret Pep Total Protein 5.6 L Albumin 2.6 L Globulin 3.0 Albumin/Globulin Ratio 0.9 L Blood Type B POSITIVE Antibody Screen Negative EKG/Cardiology Studies: Cardiology / EKG Studies 08/12/16 23:00 EKG [ELECTROCARDIOGRAM] Routine Comment: Mode Of Transportation: Reason For Exam: chest pain and fall Precautions: Standard 08/13/16 13:00 EKG [ELECTROCARDIOGRAM] Routine Comment: Mode Of Transportation: Reason For Exam: tachycardia Precautions: Standard Review of Systems - Review of Systems Review of Systems: All systems: reviewed and no additional remarkable complaints except - EENT Eyes: absent: Blind Spots, Blurred Vision Ears: absent: Decreased Hearing, Tinnitus Nose/Mouth/Throat: absent: Nasal Congestion, Facial Pain, Neck Pain - Cardiovascular Cardiovascular: absent: Chest Pain, Palpitations, Syncope - Respiratory Respiratory: absent: Cough, Dyspnea, Dyspnea on Exertion - Gastrointestinal Gastrointestinal: absent: Abdominal Pain, Constipation, Diarrhea, Nausea, Vomiting - Genitourinary Genitourinary: absent: Change in Urinary Stream, Difficulty Urinating - Musculoskeletal Musculoskeletal: Arthralgias, Limited Range of Motion, Myalgias - Integumentary Integumentary: absent: Lesions, Rash, Wounds - Neurological Neurological: absent: Sensory Deficit, Syncope, Tingling, Tremor, Vertigo, Weakness - Endocrine Endocrine: absent: Cold Intolorance, Heat Intolorance Critical Care Progress Note - Extremities/Vascular Does the Patient have a Central Venous Catheter?: No Does the Patient need a Central Venous Catheter?: No Does the Patient have a Jones Catheter?: Yes Does the Patient need a Jones Catheter?: Yes Catheter Insertion Criteria: Patient requires prolonged immobilization - Prophylaxis GI Prophylaxis GI: PPI - Prophylaxis DVT Prophylaxis DVT: Heparin SQ (DRIP (cardiac protocol)) - Nutrition Nutrition: Nutrition Category Date Time Status Heart Healthy Diet [DIET] Diets 08/13/16 Lunch Active NPO Diet [DIET] Diets 08/14/16 Breakfast Active Assessment/Plan (1) Garden grade IV closed subcapital fracture of proximal end of right femur Current Visit: Yes Status: Acute (2) CHF exacerbation Current Visit: Yes Status: Acute (3) Closed fracture of greater trochanter of left femur Current Visit: Yes Status: Acute (4) Multifocal atrial tachycardia Current Visit: Yes Status: Chronic (5) CHF (NYHA class III, ACC/AHA stage C) Current Visit: Yes Status: Chronic - Assessment and Plan (Free Text) Plan: Patient Status: Continuing medical optimization prior to OR (tentative plan for OR 11: 30AM) Unfit for OR at this time, cardiac risk assessment pending Cardiac Cath today COCOPAH II- 10 Neuro: -AO x 3 -No acute issues Cardiovascular: -Repeat EKG and Trop at 13:00 -08/13/16 Cardiac Cath- complete RCA occlusion, good collateral flow from LAD. No stent indicated at this time -Troponins- 0.2580 > 0.2550 > 0.2740 -Acute Exacerbation of Chronic Systolic CHF (NYHA Class III C) -Multifocal Atrial Tachycardia -Cardiology Consult- Dr. Peacock for risk assessment, low EF systolic heart failure, and new onset a-fib -New Onset A-fib : [id number] (clinical indication for PO anticoagulation) : HASBLED- 1 (low risk for PO anticoagulation) : Anticoagulation with Heparin Drip (cardiac protocol)- will DC 4 hours prior to OR -Digoxin 0.25mg PO daily -08/12/16 EKG- Normal sinus rhythm, normal intervals, normal axis, evidence of anterior wall and inferior wall ischemia- official read pending -08/09/16 Echo- EF 26%, grade I abnormal relaxation pattern, moderate-severe mitral regurgitation, mild pulm HTN Pulmonary: -Sating well -No issues -Imaging : 08/13/16 CXR- Biapical pleural thickening with upper lobe granulomatous changes. Diffuse increased interstitial lung markings. Prominent airspace opacities in the mid to lower lung zones with associated moderate bilateral pleural effusions. Scattered nodular densities throughout both lungs. Cardiomegaly. : 08/11/16 CTA Chest- No large central or segmental pulmonary embolus evident. Emphysematous changes. Small to moderate right greater than left pleural effusions and associated compressive consolidations. Cardiomegaly. No significant pericardial effusion. Atherosclerotic calcifications of the aorta. Dense coronary artery calcifications. : 08/11/16 CXR- Biapical pleural thickening with upper lobe granulomatous changes. Prominent calcified granulomatous changes in the right lung apex. Moderate bilateral pleural effusions with prominent airspace opacities in the mid to lower lung zones bilaterally. Scattered nodularity throughout both lungs. Diffuse increased interstitial lung markings throughout both lungs. : 08/10/16 CXR- Cardiomegaly and atherosclerotic disease; bilateral pleural effusions with basilar opacities atelectasis and/or infiltrate, findings greatest on the left Gastrointestinal: -No acute complaints -Boost added at meal time for nutritional supplementation Hematology: -PTT- 174 -continue Heparin Drip (cardiac protocol) Endocrine: -No issues Renal: -Metabolic Alkalosis- likely 2/2 loop diuretic use- resolving -Hypophosphatemia- replaced with sodium phosphate 15mmol Musculoskeletal: -Dopple US Negative for DVT -Right Garden IV Displaced Subcapital Femoral Neck Fracture : Plan for TAMARA with Dr. Elena 11:30 AM, hold heparin 4 hours before -Left Isolated Greater Trochanter Fracture -Pain Control- Tylenol 650mg PO q6 PRN, morphine 1mg IV q4 PRN -Dr. Elena on case for orthopedic evaluation -Imaging -08/08/16 R Knee XR- no acute fracture of dislocation -08/07/16 CT Pelvis- 1. Impacted fracture of the proximal right femur. This appears and involves the neck of the femur. 2. Preserved right femoral acetabular relationship. 3. Destructive process with associated fracture of the greater trochanter left femur. Abundant soft tissue swelling noted. . By history, the patient does not have a known malignancy. -08/07/16 Pelvis XR- Fracture right femoral neck with displacement and mild impaction. Questionable fracture of left greater trochanter. Please correlate clinically and consider further radiographic evaluation. Genitourinary: -No issues -Continue jones catheter Infectious Disease: -None GI Prophylaxis: Protonix 40mg PO daily DVT Prophylaxis: Heparin Drip (cardiac protocol) Case Discussed with Dr. Zak Grijalva PGY1 - Date & Time Date: 08/13/16 Time: 11:38 <Maurizio Crespo S - Last Filed: 08/13/16 17:58> CCU Subjective - Physician Review Critical Care Time Spent (in minutes): 35 CCU Objective - Vital Signs / Intake & Output Vital Signs (Last 4 hours): Vital Signs Temp Pulse Resp BP Pulse Ox 08/13/16 17:35 125/77 08/13/16 17:00 68 13 85 L 08/13/16 16:55 86 11 L 129/71 77 L 08/13/16 16:25 64 14 126/70 08/13/16 16:00 97.4 F L 65 14 08/13/16 15:55 63 14 127/76 08/13/16 15:25 67 13 129/70 08/13/16 15:24 70 12 08/13/16 15:00 73 9 L 08/13/16 14:55 69 11 L 123/67 08/13/16 14:25 54 L 12 111/75 95 08/13/16 14:00 61 7 L 96 Intake and Output (Last 8hrs): Intake & Output 08/13/16 08/13/16 08/13/16 06:59 14:59 22:59 Intake Total 48.8 168.3 112.2 Output Total 325 255 75 Balance -276.2 -86.7 37.2 Intake: Intake, IV Amount 48.8 168.3 112.2 Right Antecubital 48.8 18.3 12.2 rt upper arm 150 100 Oral 0 Output: Urine 325 255 75 Urethral (Jones) 325 255 75 - Medications Active Medications: Active Medications Generic Name Dose Route Start Last Admin Trade Name Freq PRN Reason Stop Dose Admin Acetaminophen 650 mg 08/09/16 09:02 08/12/16 09:53 Tylenol 325mg Tab PO 650 mg Q6 PRN Administration Pain, Mild (1-3) Digoxin 0.25 mg 08/11/16 18:00 08/13/16 17:35 Lanoxin PO 0.25 mg DAILY@1800 [place] Administration Diltiazem HCl 30 mg 08/12/16 16:15 08/13/16 17:35 Cardizem PO 30 mg Q8H [place] Administration Heparin Sodium/Sodium Chloride 25,000 units in 250 mls @ 7.119 mls/hr 12:30 08/12/16 17:06 Heparin 87422 Units/250ml 1/2 Normal Saline IV 11.3 units/kg/hr .Q24H PRN 6.048 mls/hr PROTOCOL Administration Protocol 13.3 UNITS/KG/HR Metoprolol Tartrate 25 mg 08/12/16 18:00 08/13/16 17:35 Lopressor PO 25 mg BID [place] Administration Morphine Sulfate 1 mg 08/11/16 15:44 08/13/16 08:29 Morphine IV 1 mg Q4 PRN Administration Pain, severe (8-10) Pantoprazole Sodium 40 mg 08/11/16 10:00 08/13/16 09:57 Protonix Ec Tab PO 40 mg DAILY [place] Administration - Patient Studies Lab Studies: Lab Studies 08/13/16 08/13/16 08/13/16 Range/Units 06:51 06:23 06:23 WBC (4.8-10.8) K/uL RBC (3.80-5.20) Mil/uL Hgb (11.0-16.0) g/dL Hct (34.0-47.0) % MCV (81.0-99.0) fL MCH (27.0-31.0) pg MCHC (33.0-37.0) g/dL RDW (11.5-14.5) % Plt Count (130-400) K/uL MPV (7.2-11.7) fL Neut % (Auto) (50.0-75.0) % Lymph % (Auto) (20.0-40.0) % Walker % (Auto) (0.0-10.0) % Eos % (Auto) (0.0-4.0) % Baso % (Auto) (0.0-2.0) % Neut # (1.8-7.0) K/uL Lymph # (1.0-4.3) K/uL Walker # (0.0-0.8) K/uL Eos # (0.0-0.7) K/uL Baso # (0.0-0.2) K/uL Neutrophils % (Manual) (50-75) % Band Neutrophils % (0-2) % Lymphocytes % (Manual) (20-40) % Monocytes % (Manual) (0-10) % Eosinophils % (Manual) (0-4) % Platelet Estimate (NORMAL) Basophilic Stippling Anisocytosis (manual) Macrocytosis (manual) PT 10.3 (9.7-12.2) SECONDS INR 0.9 APTT 60 H (21-34) SECONDS Sodium 138 (132-148) mmol/L Potassium 4.3 (3.6-5.2) mmol/L Chloride 103 (98-107) mmol/L Carbon Dioxide 32 H (22-30) mmol/L Anion Gap 7 L (10-20) BUN 23 H (7-17) mg/dL Creatinine 0.6 L (0.7-1.2) MG/DL Est GFR ( Amer) > 60 Est GFR (Non-Af Amer) > 60 Random Glucose 88 (65-105) mg/dL Calcium 8.0 L (8.6-10.4) mg/dl Phosphorus 2.3 L (2.5-4.5) mg/dL Magnesium 1.8 (1.6-2.3) mg/dL Total Bilirubin 0.6 (0.2-1.3) mg/dL AST 25 (14-36) U/L ALT 42 (9-52) U/L Alkaline Phosphatase 107 (38-126) U/L Troponin I 0.2740 H* (0.00-0.120) ng/mL Total Protein 5.6 L (6.3-8.3) g/dL Albumin 2.6 L (3.5-5.0) g/dL Globulin 3.0 (2.2-3.9) gm/dL Albumin/Globulin Ratio 0.9 L (1.0-2.1) Blood Type B POSITIVE Antibody Screen Negative 08/13/16 08/13/16 08/13/16 Range/Units 06:23 00:50 00:50 WBC 11.6 H (4.8-10.8) K/uL RBC 3.45 L (3.80-5.20) Mil/uL Hgb 12.6 (11.0-16.0) g/dL Hct 38.8 (34.0-47.0) % MCV 112.4 H (81.0-99.0) fL MCH 36.6 H (27.0-31.0) pg MCHC 32.5 L (33.0-37.0) g/dL RDW 17.5 H (11.5-14.5) % Plt Count 207 (130-400) K/uL MPV 9.6 (7.2-11.7) fL Neut % (Auto) 85.9 H (50.0-75.0) % Lymph % (Auto) 3.8 L (20.0-40.0) % Walker % (Auto) 8.9 (0.0-10.0) % Eos % (Auto) 1.0 (0.0-4.0) % Baso % (Auto) 0.4 (0.0-2.0) % Neut # 10.0 H (1.8-7.0) K/uL Lymph # 0.4 L (1.0-4.3) K/uL Walker # 1.0 H (0.0-0.8) K/uL Eos # 0.1 (0.0-0.7) K/uL Baso # 0.0 (0.0-0.2) K/uL Neutrophils % (Manual) 79 H (50-75) % Band Neutrophils % 8 H (0-2) % Lymphocytes % (Manual) 3 L (20-40) % Monocytes % (Manual) 9 (0-10) % Eosinophils % (Manual) 1 (0-4) % Platelet Estimate Normal (NORMAL) Basophilic Stippling Slight Anisocytosis (manual) Slight Macrocytosis (manual) Moderate PT (9.7-12.2) SECONDS INR APTT 57 H D (21-34) SECONDS Sodium (132-148) mmol/L Potassium (3.6-5.2) mmol/L Chloride (98-107) mmol/L Carbon Dioxide (22-30) mmol/L Anion Gap (10-20) BUN (7-17) mg/dL Creatinine (0.7-1.2) MG/DL Est GFR ( Amer) Est GFR (Non-Af Amer) Random Glucose (65-105) mg/dL Calcium (8.6-10.4) mg/dl Phosphorus (2.5-4.5) mg/dL Magnesium (1.6-2.3) mg/dL Total Bilirubin (0.2-1.3) mg/dL AST (14-36) U/L ALT (9-52) U/L Alkaline Phosphatase (38-126) U/L Troponin I 0.2550 H* (0.00-0.120) ng/mL Total Protein (6.3-8.3) g/dL Albumin (3.5-5.0) g/dL Globulin (2.2-3.9) gm/dL Albumin/Globulin Ratio (1.0-2.1) Blood Type Antibody Screen 08/12/16 Range/Units 17:00 WBC (4.8-10.8) K/uL RBC (3.80-5.20) Mil/uL Hgb (11.0-16.0) g/dL Hct (34.0-47.0) % MCV (81.0-99.0) fL MCH (27.0-31.0) pg MCHC (33.0-37.0) g/dL RDW (11.5-14.5) % Plt Count (130-400) K/uL MPV (7.2-11.7) fL Neut % (Auto) (50.0-75.0) % Lymph % (Auto) (20.0-40.0) % Walker % (Auto) (0.0-10.0) % Eos % (Auto) (0.0-4.0) % Baso % (Auto) (0.0-2.0) % Neut # (1.8-7.0) K/uL Lymph # (1.0-4.3) K/uL Walker # (0.0-0.8) K/uL Eos # (0.0-0.7) K/uL Baso # (0.0-0.2) K/uL Neutrophils % (Manual) (50-75) % Band Neutrophils % (0-2) % Lymphocytes % (Manual) (20-40) % Monocytes % (Manual) (0-10) % Eosinophils % (Manual) (0-4) % Platelet Estimate (NORMAL) Basophilic Stippling Anisocytosis (manual) Macrocytosis (manual) PT (9.7-12.2) SECONDS INR APTT (21-34) SECONDS Sodium (132-148) mmol/L Potassium (3.6-5.2) mmol/L Chloride (98-107) mmol/L Carbon Dioxide (22-30) mmol/L Anion Gap (10-20) BUN (7-17) mg/dL Creatinine (0.7-1.2) MG/DL Est GFR ( Amer) Est GFR (Non-Af Amer) Random Glucose (65-105) mg/dL Calcium (8.6-10.4) mg/dl Phosphorus (2.5-4.5) mg/dL Magnesium (1.6-2.3) mg/dL Total Bilirubin (0.2-1.3) mg/dL AST (14-36) U/L ALT (9-52) U/L Alkaline Phosphatase (38-126) U/L Troponin I 0.2580 H* (0.00-0.120) ng/mL Total Protein (6.3-8.3) g/dL Albumin (3.5-5.0) g/dL Globulin (2.2-3.9) gm/dL Albumin/Globulin Ratio (1.0-2.1) Blood Type Antibody Screen Laboratory Results - last 24 hr 08/12/16 08/13/16 08/13/16 17:00 00:50 00:50 WBC RBC Hgb Hct MCV MCH MCHC RDW Plt Count MPV Neut % (Auto) Lymph % (Auto) Walker % (Auto) Eos % (Auto) Baso % (Auto) Neut # Lymph # Walker # Eos # Baso # Neutrophils % (Manual) Band Neutrophils % Lymphocytes % (Manual) Monocytes % (Manual) Eosinophils % (Manual) Platelet Estimate Basophilic Stippling Anisocytosis (manual) Macrocytosis (manual) PT INR APTT 57 H D Sodium Potassium Chloride Carbon Dioxide Anion Gap BUN Creatinine Est GFR ( Amer) Est GFR (Non-Af Amer) Random Glucose Calcium Phosphorus Magnesium Total Bilirubin AST ALT Alkaline Phosphatase Troponin I 0.2580 H* 0.2550 H* Total Protein Albumin Globulin Albumin/Globulin Ratio Blood Type Antibody Screen 08/13/16 08/13/16 08/13/16 06:23 06:23 06:23 WBC 11.6 H RBC 3.45 L Hgb 12.6 Hct 38.8 MCV 112.4 H MCH 36.6 H MCHC 32.5 L RDW 17.5 H Plt Count 207 MPV 9.6 Neut % (Auto) 85.9 H Lymph % (Auto) 3.8 L Walker % (Auto) 8.9 Eos % (Auto) 1.0 Baso % (Auto) 0.4 Neut # 10.0 H Lymph # 0.4 L Walker # 1.0 H Eos # 0.1 Baso # 0.0 Neutrophils % (Manual) 79 H Band Neutrophils % 8 H Lymphocytes % (Manual) 3 L Monocytes % (Manual) 9 Eosinophils % (Manual) 1 Platelet Estimate Normal Basophilic Stippling Slight Anisocytosis (manual) Slight Macrocytosis (manual) Moderate PT 10.3 INR 0.9 APTT 60 H Sodium 138 Potassium 4.3 Chloride 103 Carbon Dioxide 32 H Anion Gap 7 L BUN 23 H Creatinine 0.6 L Est GFR ( Amer) > 60 Est GFR (Non-Af Amer) > 60 Random Glucose 88 Calcium 8.0 L Phosphorus 2.3 L Magnesium 1.8 Total Bilirubin 0.6 AST 25 ALT 42 Alkaline Phosphatase 107 Troponin I 0.2740 H* Total Protein 5.6 L Albumin 2.6 L Globulin 3.0 Albumin/Globulin Ratio 0.9 L Blood Type Antibody Screen 08/13/16 06:51 WBC RBC Hgb Hct MCV MCH MCHC RDW Plt Count MPV Neut % (Auto) Lymph % (Auto) Walker % (Auto) Eos % (Auto) Baso % (Auto) Neut # Lymph # Walker # Eos # Baso # Neutrophils % (Manual) Band Neutrophils % Lymphocytes % (Manual) Monocytes % (Manual) Eosinophils % (Manual) Platelet Estimate Basophilic Stippling Anisocytosis (manual) Macrocytosis (manual) PT INR APTT Sodium Potassium Chloride Carbon Dioxide Anion Gap BUN Creatinine Est GFR ( Amer) Est GFR (Non-Af Amer) Random Glucose Calcium Phosphorus Magnesium Total Bilirubin AST ALT Alkaline Phosphatase Troponin I Total Protein Albumin Globulin Albumin/Globulin Ratio Blood Type B POSITIVE Antibody Screen Negative EKG/Cardiology Studies: Cardiology / EKG Studies 08/12/16 23:00 EKG [ELECTROCARDIOGRAM] Routine Comment: Mode Of Transportation: Reason For Exam: chest pain and fall Precautions: Standard 08/13/16 13:00 EKG [ELECTROCARDIOGRAM] Routine Comment: Mode Of Transportation: Reason For Exam: tachycardia Precautions: Standard Critical Care Progress Note - Nutrition Nutrition: Nutrition Category Date Time Status Heart Healthy Diet [DIET] Diets 08/13/16 Lunch Active NPO Diet [DIET] Diets 08/14/16 Breakfast Active Attending/Attestation - Attestation I have personally seen and examined this patient.: Yes I have fully participated in the care of the patient.: Yes I have reviewed all pertinent clinical information: Yes Notes (Text): 08/13/16 17:57 Patient seen and examined in the intensive care unit. Case discussed with house staff in the morning rounds. Status post cardiac cath today by Dr. Cantu 1. L Main: Patent 2. LAD/Diags: Patent 3. L Cx: Patent 4. RCA: Mid 100%. Excellent collaterals from Left system 5. EF: 15-20%. Global hypokinesis. EDP 8, No AV gradient Nonischemic cardiomyopathy with good collaterals Possible surgery tomorrow Continue present treatment
--- NOTE | 2016-08-13 11:58 | CP.PCM.PN ---
Subjective - Date & Time of Evaluation Date of Evaluation: 08/13/16 Time of Evaluation: 11:55 - Subjective Subjective: Patient s/p Cath 1. L Main: Patent 2. LAD/Diags: Patent 3. L Cx: Patent 4. RCA: Mid 100%. Excellent collaterals from Left system 5. EF: 15-20%. Global hypokinesis. EDP 8, No AV gradient Conclusion: Non Ischemic Cardiomyopathy. Due to great collaterals from left system and no anginal symptoms RCA Coronary intervention not required at this time Resume diet. Resume Heparin after 3pm today Objective - Vital Signs/Intake and Output Vital Signs (last 24 hours): Temp Pulse Resp BP Pulse Ox 97.8 F 91 H 15 129/51 L 91 L 08/13/16 08:00 08/13/16 10:00 08/13/16 10:00 08/13/16 09:56 08/13/16 09:24 Intake and Output: 08/13/16 08/13/16 06:59 18:59 Intake Total 319.3 18.3 Output Total 422 120 Balance -102.7 -101.7 - Medications Medications: Current Medications Acetaminophen (Tylenol 325mg Tab) 650 mg PO Q6 PRN PRN Reason: Pain, Mild (1-3) Last Admin: 08/12/16 09:53 Dose: 650 mg Digoxin (Lanoxin) 0.25 mg PO DAILY@1800 [place] Last Admin: 08/12/16 17:08 Dose: 0.25 mg Diltiazem HCl (Cardizem) 30 mg PO Q8H [facility] Last Admin: 08/13/16 08:31 Dose: 30 mg Heparin Sodium/Sodium Chloride (Heparin 89913 Units/250ml 1/2 Normal Saline) 25 ,000 units in 250 mls @ 7.119 mls/hr IV .Q24H PRN; Protocol; 13.3 UNITS/KG/HR PRN Reason: PROTOCOL Last Admin: 08/12/16 17:06 Dose: 11.3 units/kg/hr, 6.048 mls/hr Sodium Phosphate 15 mmole/ (Sodium Chloride) 255 mls @ 50 mls/hr IVPB .Q5H6M ONE Stop: 08/13/16 12:50 Last Admin: 08/13/16 09:57 Dose: 50 mls/hr Metoprolol Tartrate (Lopressor) 25 mg PO BID [facility] Last Admin: 08/13/16 09:56 Dose: 25 mg Morphine Sulfate (Morphine) 1 mg IV Q4 PRN PRN Reason: Pain, severe (8-10) Last Admin: 08/13/16 08:29 Dose: 1 mg Pantoprazole Sodium (Protonix Ec Tab) 40 mg PO DAILY [facility] Last Admin: 08/13/16 09:57 Dose: 40 mg - Labs Labs: 08/13/16 06:23 08/13/16 06:23 PT 10.3 SECONDS (9.7-12.2) 08/13/16 06:23 INR 0.9 08/13/16 06:23 APTT 60 SECONDS (21-34) H 08/13/16 06:23
--- NOTE | 2016-08-13 12:28 | CARDCATH ---
PROCEDURE DATE: 08/13/2016 PROCEDURES: Left heart catheterization and coronary angiogram. CLINICAL INDICATIONS: 1. Cardiomyopathy with low ejection fraction. 2. Atrial fibrillation. 3. Hypertension. 4. Hip fracture, preop cardiac workup. REFERRING PHYSICIANS: 1. Paul Rodriguez MD. 2. Max Peacock MD. PERFORMING PHYSICIAN: Paul Cantu MD. PROCEDURE: After informed consent, the patient was prepped and draped in the usual sterile fashion. 2% lidocaine was given in the right wrist for local anesthesia. Using micropuncture technique, a 6- [place] sheath was introduced into the right radial artery. Using [place] catheter and JR4, left heart catheterization and coronary angiogram was performed. The patient tolerated the procedure well. FINDINGS: 1. Left main coronary artery is patent. 2. LAD and diagonal branches are patent. 3. Left circumflex and obtuse marginal branches are patent. 4. Mid right coronary artery has 100% chronic total occlusion. However, there are great collaterals from the left to right system. 5. LV ejection fraction is 15% -20%. Global hypokinesis. EDP 8. 6. No gradient across the aortic valve. IMPRESSION: 1. Nonischemic cardiomyopathy with ejection fraction of 15% -20%. 2. Right coronary artery has a chronic total mid occlusion. However, they are great collaterals fro m the left to right system. Since the patient does not have any history of anginal symptoms, no coronary intervention is required at this time. Paul Cantu MD cc: [id number] TT: 08/13/2016 12:28:00 jn
--- NOTE | 2016-08-13 16:58 | CP.PCM.PN ---
Subjective - Date & Time of Evaluation Date of Evaluation: 08/13/16 Time of Evaluation: 16:56 - Subjective Subjective: Pt seen and examined at bedside. No acute events overnight as per nursing. Pt is scheduled for a cardiac catheterization today. Troponins found to be elevated along with mild decrease in BNP. Pt still complaining of lower extremity pain b/l. Denies CP, SOB, N/V/D, fever, headaches. Objective - Vital Signs/Intake and Output Vital Signs (last 24 hours): Temp Pulse Resp BP Pulse Ox 97.4 F L 64 14 126/70 95 08/13/16 16:00 08/13/16 16:25 08/13/16 16:25 08/13/16 16:25 08/13/16 14:25 Intake and Output: 08/13/16 08/13/16 06:59 18:59 Intake Total 319.3 274.4 Output Total 422 330 Balance -102.7 -55.6 - Medications Medications: Current Medications Acetaminophen (Tylenol 325mg Tab) 650 mg PO Q6 PRN PRN Reason: Pain, Mild (1-3) Last Admin: 08/12/16 09:53 Dose: 650 mg Digoxin (Lanoxin) 0.25 mg PO DAILY@1800 [facility] Last Admin: 08/12/16 17:08 Dose: 0.25 mg Diltiazem HCl (Cardizem) 30 mg PO Q8H [facility] Last Admin: 08/13/16 08:31 Dose: 30 mg Heparin Sodium/Sodium Chloride (Heparin 42164 Units/250ml 1/2 Normal Saline) 25 ,000 units in 250 mls @ 7.119 mls/hr IV .Q24H PRN; Protocol; 13.3 UNITS/KG/HR PRN Reason: PROTOCOL Last Admin: 08/12/16 17:06 Dose: 11.3 units/kg/hr, 6.048 mls/hr Metoprolol Tartrate (Lopressor) 25 mg PO BID [facility] Last Admin: 08/13/16 09:56 Dose: 25 mg Morphine Sulfate (Morphine) 1 mg IV Q4 PRN PRN Reason: Pain, severe (8-10) Last Admin: 08/13/16 08:29 Dose: 1 mg Pantoprazole Sodium (Protonix Ec Tab) 40 mg PO DAILY [facility] Last Admin: 08/13/16 09:57 Dose: 40 mg - Labs Labs: 08/13/16 06:23 08/13/16 06:23 PT 10.3 SECONDS (9.7-12.2) 08/13/16 06:23 INR 0.9 08/13/16 06:23 APTT 60 SECONDS (21-34) H 08/13/16 06:23 - Constitutional Appears: Non-toxic, No Acute Distress - Respiratory Exam Respiratory Exam: Clear to Ausculation Bilateral, NORMAL BREATHING PATTERN. absent: Rhonchi, Wheezes - Cardiovascular Exam Cardiovascular Exam: RRR, +S1, +S2 - GI/Abdominal Exam GI & Abdominal Exam: Soft, Normal Bowel Sounds. absent: Tenderness - Extremities Exam Extremities Exam: Tenderness (Along left femur and right lateral hip). absent: Calf Tenderness, Pedal Edema - Neurological Exam Neurological Exam: Alert, Awake - Psychiatric Exam Psychiatric exam: Normal Affect, Normal Mood - Skin Skin Exam: Intact, Normal Color, Warm Assessment and Plan (1) CHF exacerbation Assessment & Plan: Pt underwent cardiac catheritization earlier today which showed: Complete occlusion of RCA, with collateral circulation coming from LAD. No stent was placed. EF found to be 15-20% Pt is High risk for intermediate risk surgery, however the benefits outweigh the risks Young score - 12 points, 7% risk of complication Detsky score - 20 points, 20% risk of complication Pt will be discharged with ICD Vest Status: Acute
[2016-08-13] MEDS: Digoxin 250 mcg (0.25 mg) Tab PO SCH (17:35)
--- NOTE | 2016-08-13 19:46 | CP.PCM.PN ---
Subjective - Date & Time of Evaluation Date of Evaluation: 08/13/16 Time of Evaluation: 19:44 - Subjective Subjective: CODE BLUE NOTE Code Blue called 19:30 House resident, attending, and ICU assignment editor went down immediately ACLS protocol was initiated immediately CPR was initiated 2amps epinephrine were given Patient was intubated and placed on vent (100, 5, 14, 400) Patient had ROSC repeat vitals: BP 139/101 HR 120bpm STAT EKG, CXR, and ABG shock panel ordered Objective - Vital Signs/Intake and Output Vital Signs (last 24 hours): Temp Pulse Resp BP Pulse Ox 97.4 F L 72 18 128/59 L 93 L 08/13/16 16:00 08/13/16 19:00 08/13/16 19:00 08/13/16 18:55 08/13/16 19:00 Intake and Output: 08/13/16 08/14/16 18:59 06:59 Intake Total 286.6 6.1 Output Total 390 Balance -103.4 6.1 - Medications Medications: Current Medications Acetaminophen (Tylenol 325mg Tab) 650 mg PO Q6 PRN PRN Reason: Pain, Mild (1-3) Last Admin: 08/12/16 09:53 Dose: 650 mg Digoxin (Lanoxin) 0.25 mg PO DAILY@1800 [facility] Last Admin: 08/13/16 17:35 Dose: 0.25 mg Diltiazem HCl (Cardizem) 30 mg PO Q8H [facility] Last Admin: 08/13/16 17:35 Dose: 30 mg Heparin Sodium/Sodium Chloride (Heparin 81535 Units/250ml 1/2 Normal Saline) 25 ,000 units in 250 mls @ 7.119 mls/hr IV .Q24H PRN; Protocol; 13.3 UNITS/KG/HR PRN Reason: PROTOCOL Last Admin: 08/12/16 17:06 Dose: 11.3 units/kg/hr, 6.048 mls/hr Metoprolol Tartrate (Lopressor) 25 mg PO BID [facility] Last Admin: 08/13/16 17:35 Dose: 25 mg Morphine Sulfate (Morphine) 1 mg IV Q4 PRN PRN Reason: Pain, severe (8-10) Last Admin: 08/13/16 08:29 Dose: 1 mg Pantoprazole Sodium (Protonix Ec Tab) 40 mg PO DAILY [facility] Last Admin: 08/13/16 09:57 Dose: 40 mg - Labs Labs: 08/13/16 06:23 08/13/16 06:23 PT 10.3 SECONDS (9.7-12.2) 08/13/16 06:23 INR 0.9 08/13/16 06:23 APTT 60 SECONDS (21-34) H 08/13/16 06:23
[2016-08-13] MEDS ORDERED: Midazolam 2 MG/2 ML VIAL IVP ONE ×2 (19:55→19:58)
[2016-08-13] MEDS ORDERED: Sodium Chloride 0.9% 1,000 ML IV ONE (20:01)
--- NOTE | 2016-08-13 20:46 | CP.PCM.PN ---
Subjective - Date & Time of Evaluation Date of Evaluation: 08/13/16 Time of Evaluation: 20:14 - Subjective Subjective: Sonya Bennett Response Note Dr. Zak bennett called on patient at 19:34. Barker Operator, residents, and house doctor responded to code call in the ICU. ACLS protocol was started. In accordance with the ACLS algorithms, 2amps of epinephrine were given in addition to CPR sequences. The patient was intubated by the enamel drier. Placement of the endotracheal tube in the trachea was confirmed by capnography. ROSC was achieved during the CPR round following intubation. The patient's vitals signs once ROSC was obtained were BP 139/101 HR 120bpm. The patient was stabilized. XR was called to confirm the placement of the ET tube. On portable CXR, the ET tube was visualized in adequate position. The patient is saturating at 100% on 100% FiO2. The current vent setting are PRVC tidal volume 400mL, PEEP 5cmH2O, rate 14/min, FiO2 100%. A STAT EKG was ordered- sinus rhythm was observed in addition to non-specific ST segment changes. A STAT ABG was also ordered. Results Pending. ET Tube on CXR was visualized approximately 4.5cm from the priya. Pleural effusion was again visualized. Repeat vital signs revealed HR 71bpm and a BP of 91/62. NS @ 100ml/hr was started due to Hypotension. The enamel drier was present for the duration of the code and monitored the patient until a stable condition was achieved. The patient will be maintained on the ventilator overnight with intermittent sedation with ativan as needed. Patient was seen in stable condition and signed out to the night enamel drier. Raphael Grijalva PGY1 Objective - Vital Signs/Intake and Output Vital Signs (last 24 hours): Temp Pulse Resp BP Pulse Ox 97.4 F L 72 18 128/59 L 93 L 08/13/16 16:00 08/13/16 19:00 08/13/16 19:00 08/13/16 18:55 08/13/16 19:00 Intake and Output: 08/13/16 08/14/16 18:59 06:59 Intake Total 286.6 6.1 Output Total 390 Balance -103.4 6.1 - Medications Medications: Current Medications Acetaminophen (Tylenol 325mg Tab) 650 mg PO Q6 PRN PRN Reason: Pain, Mild (1-3) Last Admin: 08/12/16 09:53 Dose: 650 mg Digoxin (Lanoxin) 0.25 mg PO DAILY@1800 [facility] Last Admin: 08/13/16 17:35 Dose: 0.25 mg Diltiazem HCl (Cardizem) 30 mg PO Q8H [facility] Last Admin: 08/13/16 17:35 Dose: 30 mg Heparin Sodium/Sodium Chloride (Heparin 09177 Units/250ml 1/2 Normal Saline) 25 ,000 units in 250 mls @ 7.119 mls/hr IV .Q24H PRN; Protocol; 13.3 UNITS/KG/HR PRN Reason: PROTOCOL Last Admin: 08/12/16 17:06 Dose: 11.3 units/kg/hr, 6.048 mls/hr Sodium Chloride (Sodium Chloride 0.9%) 1,000 mls @ 1,000 mls/hr IV .Q1H ONE Stop: 08/13/16 21:00 Lorazepam (Ativan) 1 mg IVP Q3H PRN PRN Reason: Anxiety Metoprolol Tartrate (Lopressor) 25 mg PO BID [facility] Last Admin: 08/13/16 17:35 Dose: 25 mg Morphine Sulfate (Morphine) 1 mg IV Q4 PRN PRN Reason: Pain, severe (8-10) Last Admin: 08/13/16 08:29 Dose: 1 mg Pantoprazole Sodium (Protonix Ec Tab) 40 mg PO DAILY [facility] Last Admin: 08/13/16 09:57 Dose: 40 mg - Labs Labs: 08/13/16 06:23 08/13/16 06:23 PT 10.3 SECONDS (9.7-12.2) 08/13/16 06:23 INR 0.9 08/13/16 06:23 APTT 60 SECONDS (21-34) H 08/13/16 06:23 Assessment and Plan (1) Garden grade IV closed subcapital fracture of proximal end of right femur Status: Acute (2) CHF exacerbation Status: Acute (3) Closed fracture of greater trochanter of left femur Status: Acute (4) Multifocal atrial tachycardia Status: Chronic (5) CHF (NYHA class III, ACC/AHA stage C) Status: Chronic
--- NOTE | 2016-08-13 20:48 | CP.PCM.PN ---
Subjective - Date & Time of Evaluation Date of Evaluation: 08/13/16 Time of Evaluation: 20:41 - Subjective Subjective: Patient underwent a left heart cath and a coronary angiogram today: Total occlusion of the proximal RCA with collaterals from the LAD and LCx. Marked global hypokinesia of the LV with visual estimation of the LVEF 20-25 %. No MR. Back in ICU, the patient vomitted and developed respiratory distress and severe bradycardia. The patient was intubated successfully and put on ventilator. CXR stat: ET tube tip about 11/2 inch from the priya. Bilateral pleural effusion as before and diffuse fibrotic change in the remaining lung kerns. ECG: RSR with frequent PAC's, no acute ST-T wave change. Patient received 300 cc during the cardiac catheterization. Objective - Vital Signs/Intake and Output Vital Signs (last 24 hours): Temp Pulse Resp BP Pulse Ox 97.4 F L 72 18 128/59 L 93 L 08/13/16 16:00 08/13/16 19:00 08/13/16 19:00 08/13/16 18:55 08/13/16 19:00 Intake and Output: 08/13/16 08/14/16 18:59 06:59 Intake Total 286.6 6.1 Output Total 390 Balance -103.4 6.1 - Medications Medications: Current Medications Acetaminophen (Tylenol 325mg Tab) 650 mg PO Q6 PRN PRN Reason: Pain, Mild (1-3) Last Admin: 08/12/16 09:53 Dose: 650 mg Digoxin (Lanoxin) 0.25 mg PO DAILY@1800 [facility] Last Admin: 08/13/16 17:35 Dose: 0.25 mg Sodium Chloride (Sodium Chloride 0.9%) 1,000 mls @ 1,000 mls/hr IV .Q1H ONE Stop: 08/13/16 21:00 Lorazepam (Ativan) 1 mg IVP Q3H PRN PRN Reason: Anxiety Metoprolol Tartrate (Lopressor) 25 mg PO BID [facility] Last Admin: 08/13/16 17:35 Dose: 25 mg Morphine Sulfate (Morphine) 1 mg IV Q4 PRN PRN Reason: Pain, severe (8-10) Last Admin: 08/13/16 08:29 Dose: 1 mg Pantoprazole Sodium (Protonix Ec Tab) 40 mg PO DAILY [facility] Last Admin: 08/13/16 09:57 Dose: 40 mg - Labs Labs: 08/13/16 06:23 08/13/16 06:23 PT 10.3 SECONDS (9.7-12.2) 08/13/16 06:23 INR 0.9 08/13/16 06:23 APTT 60 SECONDS (21-34) H 08/13/16 06:23 - Constitutional Appears: Agitated, Chronically Ill - Head Exam Head Exam: NORMAL INSPECTION - Eye Exam Eye Exam: Normal appearance Additional comments: Left periorbital hematoma. - ENT Exam ENT Exam: Normal Exam - Neck Exam Neck Exam: Normal Inspection - Respiratory Exam Additional comments: Rhonchi in both lung kerns. - Cardiovascular Exam Cardiovascular Exam: Irregular Rhythm - GI/Abdominal Exam GI & Abdominal Exam: Soft, Normal Bowel Sounds - Rectal Exam Rectal Exam: Deferred - Extremities Exam Additional comments: No edema. Excoriations seen on arms, legs. Right leg external rotation - Back Exam Back Exam: NORMAL INSPECTION - Neurological Exam Additional comments: Sedated. - Skin Additional comments: Excoriations noted in arms, knees. Assessment and Plan (1) Closed fracture of greater trochanter of left femur Status: Acute (2) Dehydration Status: Resolved (3) Sepsis Status: Acute (4) Fall Status: Acute (5) Arrhythmia Status: Acute (6) Contusion of head Status: Acute (7) Garden grade IV closed subcapital fracture of proximal end of right femur Status: Acute (8) CHF exacerbation Status: Acute (9) Acute respiratory failure Assessment & Plan: Probably from aspiration.To continue ventilation support and pulmonary toilets. IVF for hypotension. Status: Acute
[2016-08-13 20:54] LABS: ABG ALLEN TEST POS; ARTERIAL BLOOD GAS HCO3 24.8 mmol/L (21-28); ARTERIAL BLOOD GAS O2 SAT 97.2 % (95-98); ARTERIAL BLOOD GAS PCO2 54 mm/Hg (35-45); ARTERIAL BLOOD GAS PH 7.31 (7.35-7.45); ARTERIAL BLOOD GAS PO2 74 mm/Hg (80-100); ARTERIAL BLOOD GAS TCO2 28.9 mmol/L (22-28)
[2016-08-13] MEDS ORDERED: Sodium Chloride 0.9% 1,000 ML IV SCH (21:00)
[2016-08-13] MEDS ORDERED: DOPamine 400mg/250ml D5W 400 MG/250 ML BAG IV PRN (22:10)
[2016-08-14 05:57] LABS: ARTERIAL BLOOD GAS HCO3 29.1 mmol/L (21-28); ARTERIAL BLOOD GAS O2 SAT 94.3 % (95-98); ARTERIAL BLOOD GAS PCO2 45 mm/Hg (35-45); ARTERIAL BLOOD GAS PH 7.44 (7.35-7.45); ARTERIAL BLOOD GAS PO2 58 mm/Hg (80-100)
[2016-08-14 06:49] LABS: ALBUMIN 2.4 g/dL (3.5-5.0); PROTHROMBIN TIME 10.9 SECONDS (9.7-12.2)
[2016-08-14 06:51] LABS: GFR AFRICAN-AMERICAN > 60; GFR NON-AFRICAN AMERICAN > 60
[2016-08-14 06:52] LABS: ALB/GLOB RATIO 0.8 (1.0-2.1); ALT/SGPT 49 U/L (9-52); AST/SGOT 42 U/L (14-36); BLOOD UREA NITROGEN 18 mg/dL (7-17)
[2016-08-14 06:53] LABS: CALCIUM 7.5 mg/dl (8.6-10.4); MAGNESIUM 1.7 mg/dL (1.6-2.3)
[2016-08-14 06:55] LABS: BASO % 0.1 % (0.0-2.0); EOS % 0.1 % (0.0-4.0); HEMOGLOBIN 12.4 g/dL (11.0-16.0); LYMPH # 0.3 K/uL (1.0-4.3); LYMPH % 1.7 % (20.0-40.0); MEAN CELL VOLUME 111.6 fL (81.0-99.0); MEAN CORPUSCULAR HEMOGLOBIN 36.1 pg (27.0-31.0); MEAN CORPUSCULAR HGB CONC 32.3 g/dL (33.0-37.0); MEAN PLATELET VOLUME 9.8 fL (7.2-11.7); NEUT % 92.1 % (50.0-75.0); PLATELET COUNT 234 K/uL (130-400); RBC 3.45 Mil/uL (3.80-5.20); RED CELL DISTRIBUTION WIDTH 17.3 % (11.5-14.5); WHITE BLOOD COUNT 16.2 K/uL (4.8-10.8)
[2016-08-14 08:34] LABS: ANISOCYTOSIS SLIGHT; BANDS 8 % (0-2); LYMPHOCYTE 2 % (20-40); MONOCYTE 6 % (0-10); NEUTROPHIL 84 % (50-75); PLATELET ESTIMATE NORMAL (NORMAL); TOTAL CELLS COUNTED 100
[2016-08-14] MEDS ORDERED: Magnesium Sulfate 1 gm in D5W 1 GM/100 ML BAG IVPB ONE ×2 (08:36→10:08)
--- NOTE | 2016-08-14 08:36 | CP.PCM.PN ---
Subjective - Date & Time of Evaluation Date of Evaluation: 08/14/16 Time of Evaluation: 08:33 - Subjective Subjective: Events noted Patient intubated and sedated. Objective - Vital Signs/Intake and Output Vital Signs (last 24 hours): Temp Pulse Resp BP Pulse Ox 97.6 F 126 H 17 81/40 L 96 08/14/16 04:00 08/14/16 06:51 08/14/16 06:51 08/14/16 06:51 08/14/16 06:51 Intake and Output: 08/14/16 08/14/16 06:59 18:59 Intake Total 2055.1 Output Total 452 Balance 1603.1 - Medications Medications: Current Medications Acetaminophen (Tylenol 325mg Tab) 650 mg PO Q6 PRN PRN Reason: Pain, Mild (1-3) Last Admin: 08/12/16 09:53 Dose: 650 mg Digoxin (Lanoxin) 0.25 mg PO DAILY@1800 [place] Last Admin: 08/13/16 17:35 Dose: 0.25 mg Sodium Chloride (Sodium Chloride 0.9%) 1,000 mls @ 100 mls/hr IV .Q10H [place] Last Admin: 08/13/16 21:00 Dose: 100 mls/hr Dopamine HCl/Dextrose (Dopamine 400mg/250ml D5w) 400 mg in 250 mls @ 4.014 mls/ hr IV .Q24H PRN; Protocol; 2 MCG/KG/MIN PRN Reason: TITRATE PER MD ORDER Last Admin: 08/13/16 22:15 Dose: 2 mcg/kg/min, 4.014 mls/hr Lorazepam (Ativan) 1 mg IVP Q3H PRN PRN Reason: Anxiety Last Admin: 08/14/16 03:59 Dose: 1 mg Metoprolol Tartrate (Lopressor) 25 mg PO BID [place] Last Admin: 08/13/16 17:35 Dose: 25 mg Morphine Sulfate (Morphine) 1 mg IV Q4 PRN PRN Reason: Pain, severe (8-10) Last Admin: 08/13/16 08:29 Dose: 1 mg Pantoprazole Sodium (Protonix Susp) 40 mg GT DAILY [place] - Labs Labs: 08/14/16 06:31 08/14/16 06:31 PT 10.9 SECONDS (9.7-12.2) 08/14/16 06:31 INR 1.0 08/14/16 06:31 APTT 29 SECONDS (21-34) D 08/14/16 06:31 Assessment and Plan (1) Garden grade IV closed subcapital fracture of proximal end of right femur Assessment & Plan: Surgery cancelled today due to code Dr. Elena aware will follow Status: Acute (2) Degenerative joint disease of right hip Status: Chronic (3) Closed fracture of greater trochanter of left femur Status: Acute
--- NOTE | 2016-08-14 09:29 | RAD ---
HISTORY: intubation COMPARISON: 08/07/2016 FINDINGS: LUNGS: Endotracheal tube extending into the mid thoracic trachea. Biapical pleural thickening with upper lobe granulomatous changes. Diffuse increased interstitial lung markings. Confluent consolidative opacification of the right mid to lower lung zone as well as the left lung base. Moderate right and small left pleural effusion. Right hilar prominence. Small nodular density in the right midlung zone. PLEURA: As above. CARDIOVASCULAR: Cardiomegaly. Calcification at the aortic knob. OSSEOUS STRUCTURES: Degenerative changes in the spine and shoulders. VISUALIZED UPPER ABDOMEN: Normal. OTHER FINDINGS: None. IMPRESSION: Endotracheal tube extending into the mid thoracic trachea. Biapical pleural thickening with upper lobe granulomatous changes. Diffuse increased interstitial lung markings. Confluent consolidative opacification of the right mid to lower lung zone as well as the left lung base. Moderate right and small left pleural effusion. Right hilar prominence. Small nodular density in the right midlung zone.
[2016-08-14] MEDS: Pantoprazole 40 mg Susp UD GT SCH (10:06)
--- NOTE | 2016-08-14 10:21 | CP.PCM.PN ---
Subjective - Date & Time of Evaluation Date of Evaluation: 08/14/16 Time of Evaluation: 10:16 - Subjective Subjective: Progress Note for Dr. Peacock Pt seen and examined at bedside. 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 Pt vomitted and had severe respiratory distress, then intubated. Pt remains on sedation at this time. Surgery for today cancelled. Objective - Vital Signs/Intake and Output Vital Signs (last 24 hours): Temp Pulse Resp BP Pulse Ox 97.6 F 126 H 17 102/72 96 08/14/16 04:00 08/14/16 06:51 08/14/16 06:51 08/14/16 10:06 08/14/16 06:51 Intake and Output: 08/14/16 08/14/16 06:59 18:59 Intake Total 2055.1 Output Total 452 Balance 1603.1 - Medications Medications: Current Medications Acetaminophen (Tylenol 325mg Tab) 650 mg PO Q6 PRN PRN Reason: Pain, Mild (1-3) Last Admin: 08/12/16 09:53 Dose: 650 mg Digoxin (Lanoxin) 0.25 mg PO DAILY@1800 [place] Last Admin: 08/13/16 17:35 Dose: 0.25 mg Sodium Chloride (Sodium Chloride 0.9%) 1,000 mls @ 100 mls/hr IV .Q10H [place] Last Admin: 08/13/16 21:00 Dose: 100 mls/hr Dopamine HCl/Dextrose (Dopamine 400mg/250ml D5w) 400 mg in 250 mls @ 4.014 mls/ hr IV .Q24H PRN; Protocol; 2 MCG/KG/MIN PRN Reason: TITRATE PER MD ORDER Last Admin: 08/13/16 22:15 Dose: 2 mcg/kg/min, 4.014 mls/hr Magnesium Sulfate/Dextrose (Magnesium Sulfate 1 Gm/100 Ml D5w) 1 gm in 100 mls @ 200 mls/hr IVPB ONCE ONE Stop: 08/14/16 10:37 Lorazepam (Ativan) 1 mg IVP Q3H PRN PRN Reason: Anxiety Last Admin: 08/14/16 03:59 Dose: 1 mg Metoprolol Tartrate (Lopressor) 25 mg PO BID [place] Last Admin: 08/14/16 10:06 Dose: 25 mg Morphine Sulfate (Morphine) 1 mg IV Q4 PRN PRN Reason: Pain, severe (8-10) Last Admin: 08/13/16 08:29 Dose: 1 mg Pantoprazole Sodium (Protonix Susp) 40 mg GT DAILY [place] Last Admin: 08/14/16 10:06 Dose: 40 mg - Labs Labs: 08/14/16 06:31 08/14/16 06:31 PT 10.9 SECONDS (9.7-12.2) 08/14/16 06:31 INR 1.0 08/14/16 06:31 APTT 29 SECONDS (21-34) D 08/14/16 06:31 - Constitutional Appears: Toxic - ENT Exam Additional comments: ET tube in place - Respiratory Exam Respiratory Exam: Clear to Ausculation Bilateral, NORMAL BREATHING PATTERN - Cardiovascular Exam Cardiovascular Exam: RRR, +S1, +S2 - GI/Abdominal Exam GI & Abdominal Exam: Soft, Normal Bowel Sounds. 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
[2016-08-14] MEDS ORDERED: Enoxaparin 40 mg Syringe SC ONE (11:29)
[2016-08-14] MEDS: Sodium Chloride 0.9% 1,000 ML IV SCH (12:21)
--- NOTE | 2016-08-14 14:30 | CP.CCUPN ---
<Donnell Grijalva - Last Filed: 08/14/16 14:28> CCU Subjective - Physician Review Subjective (Free Text): 08/11/16 15:46 Patient seen and examined at the bedside. No acute distress. No acute events overnight. Nursing staff reports no issues. Patient's pain is controlled with PO tylenol at this point. Morphine added for additional pain control PRN. The patient has an acute exacerbation of CHF and remains medically unfit for OR for TAMARA. The patient denies fever, chills, headache, chest pain, SOB, abdominal pain, N/V/D/C. Today on rounds, the patient was placed on scheduled PO digoxin 0.25mg, and IV morphine 1mg q4 prn was added for additional pain control. The topic of advanced directives was also discussed at length. 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 Under circumstances where recovery to a quality of live that will enable her to care for her is not certain, she wishes no extraordinary measures to be taken. 08/12/16 14:52 Patient seen and examined at the bedside. No acute distress. No acute events overnight. Nursing staff reports no issues. Patient's pain is controlled with PO tylenol and morphine PRN. The patient has been tentatively scheduled for OR at 11:30am with Dr. Elena pending medical risk assessment and clearance. The patient reports continued right leg pain. Per the patient, the pain is adequately controlled. The patient denies fever, chills, headache, chest pain, SOB, abdominal pain, N/V/D/C. Today on rounds, the patient's heparin drip was changed to cardiac protocol. Dr. Peacock was consulted for chronic low ejection systolic heart failure and new onset a-fib. The patient's phosphorous, magnesium, and potassium were replaced. To supplement her diet, Boost was added with all meals and ensure was added one time daily at night. 08/13/16 11:30 Patient seen and examined at the bedside. No acute distress. No acute events overnight. Nursing staff reports no issues. Patient is for cardiac cath with Dr. Cantu today. Patient is in pain this morning. 1 dose of morphine was given with good result. The patient is tentatively scheduled for the OR on with Dr. Elena pending medical risk assessment and stratification. The patient denies fever, chills, headache, chest pain, SOB, abdominal pain, N/V/D/ C. Today on rounds, The patients phosphorous was replaced. Repeat TONY panel and EKG were also ordered for 13:00 t0 trend mildly elevated troponin measurements. 08/14/16 14:28 Patient seen and examined at the bedside. No acute distress. Patient called for code blue at 19:34 last night. Patient was intubated by promotional advertising assistant at bedside. Patient on [facility] this morning. Central line access left femoral vein. Nursing staff reports no issues. Today on rounds, the patient's presser was changed to levophed from dopamine, lovenox VTE prophylaxis was initiated, tube feeds were started, cerna cultures were sent, and the patients magnesium was replaced. Critical Care Time Spent (in minutes): 90 CCU Objective - Vital Signs / Intake & Output Vital Signs (Last 4 hours): Vital Signs Temp Pulse Resp BP Pulse Ox 08/14/16 14:00 111 H 17 97 08/14/16 13:51 113 H 17 126/75 97 08/14/16 13:00 98 H 19 97 08/14/16 12:51 102 H 26 H 109/59 L 96 08/14/16 12:42 90 19 100/60 100 08/14/16 12:00 98.6 F 99 H 19 99 08/14/16 11:51 88 20 100/60 100 08/14/16 11:00 85 16 99 08/14/16 10:51 95 H 18 108/58 L 99 Intake and Output (Last 8hrs): Intake & Output 08/13/16 08/14/16 08/14/16 22:59 06:59 14:59 Intake Total 1341.4 832 938.0 Output Total 259 328 175 Balance 1082.4 504 763.0 Intake: IV 4 Intake, IV Amount 1341.4 832 874.0 Left Femoral TLC Distal 112 32 49.0 Left Femoral TLC Medial 6 Left Femoral TLC Proximal 1199 800 825 Right Antecubital 24.4 Oral 0 Tube Feeding 60 Output: Urine 258 328 175 Urethral (Jones) 258 328 175 Urine/Stool Mix 1 - Physical Exam Head: Positive for: Normocephalic, Ecchymosis, Other (Contusions over left side of face, ET Tube in place). Negative for: Atraumatic Pupils: Positive for: PERRL Extroacular Muscles: Positive for: EOMI Conjunctiva: Positive for: Normal Mouth: Positive for: Moist Mucous Membranes Neck: Positive for: Normal Range of Motion. Negative for: JVD, Bruit Respiratory/Chest: Positive for: Good Air Exchange, Decreased Breath Sounds ( bibasilar R > L), Rales (bibasilar ). Negative for: Clear to Auscultation, Respiratory Distress, Accessory Muscle Use, Wheezes, Retracting, Rhonchi Cardiovascular: Positive for: Regular Rate and Rhythm, Normal S1, S2, Peripheal Pulses Present. Negative for: Murmurs Abdomen: Positive for: Normal Bowel Sounds. Negative for: Tenderness, Distention, Peritoneal Signs, Rebound, Guarding Upper Extremity: Positive for: Normal Inspection, NORMAL PULSES, Neurovascularly Intact Lower Extremity: Positive for: NORMAL PULSES, Deformity (right leg shotened and externally rotated ), Neurovascularly Intact, Other (tenderness over b/l hips to palpation). Negative for: Normal Inspection, Normal ROM Neurological: Positive for: CN II-XII Intact, Speech Normal, Motor Func Grossly Intact Skin: Positive for: Warm, Dry, Normal Color. Negative for: Rashes Psychiatric: Positive for: Alert, Oriented x 3 - Medications Active Medications: Active Medications Generic Name Dose Route Start Last Admin Trade Name Freq PRN Reason Stop Dose Admin Acetaminophen 650 mg 08/09/16 09:02 08/12/16 09:53 Tylenol 325mg Tab PO 650 mg Q6 PRN Administration Pain, Mild (1-3) Digoxin 0.25 mg 08/11/16 18:00 08/13/16 17:35 Lanoxin PO 0.25 mg DAILY@1800 [place] Administration Norepinephrine Bitartrate 4 mg 254 mls @ 15.24 mls/hr 08/14/16 11:10 14:00 / Sodium Chloride IV 1 mcg/min .[id number] PRN 3.81 mls/hr TITRATE PER MD ORDER Titration Protocol 4 MCG/MIN Cefepime HCl 1 gm/ Dextrose 50 mls @ 100 mls/hr 08/14/16 12:00 08/14/16 12:44 IVPB 100 mls/hr Q12H [place] Administration Sodium Chloride 1,000 mls @ 75 mls/hr 08/14/16 11:32 08/14/16 12:21 Sodium Chloride 0.9% IV 75 mls/hr .[id number] [place] Administration Lorazepam 1 mg 08/13/16 19:54 08/14/16 03:59 Ativan IVP 1 mg Q3H PRN Administration Anxiety Metoprolol Tartrate 25 mg 08/12/16 18:00 08/14/16 10:06 Lopressor PO 25 mg BID [place] Administration Morphine Sulfate 1 mg 08/11/16 15:44 08/13/16 08:29 Morphine IV 1 mg Q4 PRN Administration Pain, severe (8-10) Pantoprazole Sodium 40 mg 08/14/16 10:00 08/14/16 10:06 Protonix Susp GT 40 mg DAILY [place] Administration - Patient Studies Lab Studies: Lab Studies 08/14/16 08/14/16 08/14/16 Range/Units 06:31 06:31 06:31 WBC 16.2 H (4.8-10.8) K/uL RBC 3.45 L (3.80-5.20) Mil/uL Hgb 12.4 (11.0-16.0) g/dL Hct 38.5 (34.0-47.0) % MCV 111.6 H (81.0-99.0) fL MCH 36.1 H (27.0-31.0) pg MCHC 32.3 L (33.0-37.0) g/dL RDW 17.3 H (11.5-14.5) % Plt Count 234 (130-400) K/uL MPV 9.8 (7.2-11.7) fL Neut % (Auto) 92.1 H (50.0-75.0) % Lymph % (Auto) 1.7 L (20.0-40.0) % [place] % (Auto) 6.0 (0.0-10.0) % Eos % (Auto) 0.1 (0.0-4.0) % Baso % (Auto) 0.1 (0.0-2.0) % Neut # 15.0 H (1.8-7.0) K/uL Lymph # 0.3 L (1.0-4.3) K/uL [place] # 1.0 H (0.0-0.8) K/uL Eos # 0.0 (0.0-0.7) K/uL Baso # 0.0 (0.0-0.2) K/uL Neutrophils % (Manual) 84 H (50-75) % Band Neutrophils % 8 H (0-2) % Lymphocytes % (Manual) 2 L (20-40) % Monocytes % (Manual) 6 (0-10) % Platelet Estimate Normal (NORMAL) Basophilic Stippling Slight Anisocytosis (manual) Slight Macrocytosis (manual) Moderate PT 10.9 (9.7-12.2) SECONDS INR 1.0 APTT 29 D (21-34) SECONDS Puncture Site pCO2 (35-45) mm/Hg pO2 (80-100) mm/Hg HCO3 (21-28) mmol/L ABG pH (7.35-7.45) ABG Total CO2 (22-28) mmol/L ABG O2 Saturation (95-98) % ABG Base Excess (-2.0-3.0) mmol/L Seng Test ABG Potassium (3.6-5.2) mmol/L A-a O2 Difference mm/Hg Respiratory Index Sodium 138 (132-148) mmol/l Chloride 105 (98-107) mmol/L Glucose (65-105) mg/dl Lactate (0.7-2.1) mmol/L Mechanical Rate FiO2 % Tidal Volume PEEP Potassium 4.2 (3.6-5.2) mmol/L Carbon Dioxide 29 (22-30) mmol/L Anion Gap 9 L (10-20) BUN 18 H (7-17) mg/dL Creatinine 0.6 L (0.7-1.2) MG/DL Est GFR ( Amer) > 60 Est GFR (Non-Af Amer) > 60 Random Glucose 103 (65-105) mg/dL Calcium 7.5 L (8.6-10.4) mg/dl Phosphorus 3.3 (2.5-4.5) mg/dL Magnesium 1.7 (1.6-2.3) mg/dL Total Bilirubin 0.8 (0.2-1.3) mg/dL AST 42 H D (14-36) U/L ALT 49 (9-52) U/L Alkaline Phosphatase 146 H D (38-126) U/L Total Protein 5.3 L (6.3-8.3) g/dL Albumin 2.4 L (3.5-5.0) g/dL Globulin 2.9 (2.2-3.9) gm/dL Albumin/Globulin Ratio 0.8 L (1.0-2.1) Arterial Blood Potassium (3.6-5.2) mmol/L 08/14/16 08/13/16 Range/Units 05:27 20:30 WBC (4.8-10.8) K/uL RBC (3.80-5.20) Mil/uL Hgb (11.0-16.0) g/dL Hct (34.0-47.0) % MCV (81.0-99.0) fL MCH (27.0-31.0) pg MCHC (33.0-37.0) g/dL RDW (11.5-14.5) % Plt Count (130-400) K/uL MPV (7.2-11.7) fL Neut % (Auto) (50.0-75.0) % Lymph % (Auto) (20.0-40.0) % [place] % (Auto) (0.0-10.0) % Eos % (Auto) (0.0-4.0) % Baso % (Auto) (0.0-2.0) % Neut # (1.8-7.0) K/uL Lymph # (1.0-4.3) K/uL [place] # (0.0-0.8) K/uL Eos # (0.0-0.7) K/uL Baso # (0.0-0.2) K/uL Neutrophils % (Manual) (50-75) % Band Neutrophils % (0-2) % Lymphocytes % (Manual) (20-40) % Monocytes % (Manual) (0-10) % Platelet Estimate (NORMAL) Basophilic Stippling Anisocytosis (manual) Macrocytosis (manual) PT (9.7-12.2) SECONDS INR APTT (21-34) SECONDS Puncture Site Rb Rba pCO2 45 54 H (35-45) mm/Hg pO2 58 L 74 L (80-100) mm/Hg HCO3 29.1 H 24.8 (21-28) mmol/L ABG pH 7.44 7.31 L (7.35-7.45) ABG Total CO2 32.0 H 28.9 H (22-28) mmol/L ABG O2 Saturation 94.3 L 97.2 (95-98) % ABG Base Excess 5.6 H 0 (-2.0-3.0) mmol/L Seng Test Na Pos ABG Potassium 4.2 3.8 (3.6-5.2) mmol/L A-a O2 Difference 599.0 572.0 mm/Hg Respiratory Index 10.3 7.7 Sodium 140.0 142.0 (132-148) mmol/l Chloride 112.0 H 113.0 H (98-107) mmol/L Glucose 98 155 H (65-105) mg/dl Lactate 0.8 1.6 (0.7-2.1) mmol/L Mechanical Rate 14 14 FiO2 100.0 100.0 % Tidal Volume 400 400 PEEP 5 5 Potassium (3.6-5.2) mmol/L Carbon Dioxide (22-30) mmol/L Anion Gap (10-20) BUN (7-17) mg/dL Creatinine (0.7-1.2) MG/DL Est GFR ( Amer) Est GFR (Non-Af Amer) Random Glucose (65-105) mg/dL Calcium (8.6-10.4) mg/dl Phosphorus (2.5-4.5) mg/dL Magnesium (1.6-2.3) mg/dL Total Bilirubin (0.2-1.3) mg/dL AST (14-36) U/L ALT (9-52) U/L Alkaline Phosphatase (38-126) U/L Total Protein (6.3-8.3) g/dL Albumin (3.5-5.0) g/dL Globulin (2.2-3.9) gm/dL Albumin/Globulin Ratio (1.0-2.1) Arterial Blood Potassium 4.2 3.8 (3.6-5.2) mmol/L Laboratory Results - last 24 hr 08/13/16 08/14/16 08/14/16 20:30 05:27 06:31 WBC 16.2 H RBC 3.45 L Hgb 12.4 Hct 38.5 MCV 111.6 H MCH 36.1 H MCHC 32.3 L RDW 17.3 H Plt Count 234 MPV 9.8 Neut % (Auto) 92.1 H Lymph % (Auto) 1.7 L [place] % (Auto) 6.0 Eos % (Auto) 0.1 Baso % (Auto) 0.1 Neut # 15.0 H Lymph # 0.3 L [place] # 1.0 H Eos # 0.0 Baso # 0.0 Neutrophils % (Manual) 84 H Band Neutrophils % 8 H Lymphocytes % (Manual) 2 L Monocytes % (Manual) 6 Platelet Estimate Normal Basophilic Stippling Slight Anisocytosis (manual) Slight Macrocytosis (manual) Moderate PT INR APTT Puncture Site Rba Rb pCO2 54 H 45 pO2 74 L 58 L HCO3 24.8 29.1 H ABG pH 7.31 L 7.44 ABG Total CO2 28.9 H 32.0 H ABG O2 Saturation 97.2 94.3 L ABG Base Excess 0 5.6 H Seng Test Pos Na ABG Potassium 3.8 4.2 A-a O2 Difference 572.0 599.0 Respiratory Index 7.7 10.3 Sodium 142.0 140.0 Chloride 113.0 H 112.0 H Glucose 155 H 98 Lactate 1.6 0.8 Mechanical Rate 14 14 FiO2 100.0 100.0 Tidal Volume 400 400 PEEP 5 5 Potassium Carbon Dioxide Anion Gap BUN Creatinine Est GFR ( Amer) Est GFR (Non-Af Amer) Random Glucose Calcium Phosphorus Magnesium Total Bilirubin AST ALT Alkaline Phosphatase Total Protein Albumin Globulin Albumin/Globulin Ratio Arterial Blood Potassium 3.8 4.2 08/14/16 08/14/16 06:31 06:31 WBC RBC Hgb Hct MCV MCH MCHC RDW Plt Count MPV Neut % (Auto) Lymph % (Auto) [place] % (Auto) Eos % (Auto) Baso % (Auto) Neut # Lymph # [place] # Eos # Baso # Neutrophils % (Manual) Band Neutrophils % Lymphocytes % (Manual) Monocytes % (Manual) Platelet Estimate Basophilic Stippling Anisocytosis (manual) Macrocytosis (manual) PT 10.9 INR 1.0 APTT 29 D Puncture Site pCO2 pO2 HCO3 ABG pH ABG Total CO2 ABG O2 Saturation ABG Base Excess Seng Test ABG Potassium A-a O2 Difference Respiratory Index Sodium 138 Chloride 105 Glucose Lactate Mechanical Rate FiO2 Tidal Volume PEEP Potassium 4.2 Carbon Dioxide 29 Anion Gap 9 L BUN 18 H Creatinine 0.6 L Est GFR ( Amer) > 60 Est GFR (Non-Af Amer) > 60 Random Glucose 103 Calcium 7.5 L Phosphorus 3.3 Magnesium 1.7 Total Bilirubin 0.8 AST 42 H D ALT 49 Alkaline Phosphatase 146 H D Total Protein 5.3 L Albumin 2.4 L Globulin 2.9 Albumin/Globulin Ratio 0.8 L Arterial Blood Potassium EKG/Cardiology Studies: Cardiology / EKG Studies 08/13/16 19:48 EKG [ELECTROCARDIOGRAM] Stat Comment: Mode Of Transportation: Reason For Exam: s/p code blue Precautions: Standard Review of Systems - Review of Systems Systems not reviewed;Unavailable: Intubated Critical Care Progress Note - Ventilator Checklist Head of Bed 30 Degrees: Yes - Vent Settings MODE:: PRVC TIDAL VOLUME:: 400 RESP RATE:: 14 FIO2:: 100 PEEP:: 5 - Extremities/Vascular Does the Patient have a Central Venous Catheter?: Yes Insertion Site: Femoral Vein (Left) Does the Patient need a Central Venous Catheter?: Yes Does the Patient have a Jones Catheter?: Yes Does the Patient need a Jones Catheter?: Yes Catheter Insertion Criteria: Patient requires prolonged immobilization - Prophylaxis GI Prophylaxis GI: PPI - Prophylaxis DVT Prophylaxis DVT: Lovenox - Nutrition Nutrition: Nutrition Category Date Time Status NPO Diet [DIET] Diets 08/14/16 Breakfast Active Assessment/Plan (1) Garden grade IV closed subcapital fracture of proximal end of right femur Current Visit: Yes Status: Acute (2) CHF exacerbation Current Visit: Yes Status: Acute (3) Closed fracture of greater trochanter of left femur Current Visit: Yes Status: Acute (4) Multifocal atrial tachycardia Current Visit: Yes Status: Chronic (5) CHF (NYHA class III, ACC/AHA stage C) Current Visit: Yes Status: Chronic - Assessment and Plan (Free Text) Plan: Patient Status: Continuing medical optimization prior to OR (tentative plan for OR 11: 30AM) Unfit for OR at this time, cardiac risk assessment pending Cardiac Cath today HAMILTON II- 10 Neuro: -Ativan 1mg q3 PRN for sedation -No acute issues Cardiovascular: -s/p code blue 08/13/16 -Levophed 4mcg titration for presser support -metoprolol 25mg po bid -08/14/16 Echo ordered- official read pending -Acute Exacerbation of Chronic Systolic CHF (NYHA Class III C) -Multifocal Atrial Tachycardia -Cardiology Consult- Dr. Peacock for risk assessment, low EF systolic heart failure, and new onset a-fib -Digoxin 0.25mg PO daily -08/13/16 Cardiac Cath- complete RCA occlusion, good collateral flow from LAD. No stent indicated at this time -08/12/16 EKG- Normal sinus rhythm, normal intervals, normal axis, evidence of anterior wall and inferior wall ischemia- official read pending -08/09/16 Echo- EF 26%, grade I abnormal relaxation pattern, moderate-severe mitral regurgitation, mild pulm HTN Pulmonary: -PRVC intubation -Imaging : 08/14/16 CXR- stable position of lines and tubes- official read pending : 08/13/16 CXR- Biapical pleural thickening with upper lobe granulomatous changes. Diffuse increased interstitial lung markings. Prominent airspace opacities in the mid to lower lung zones with associated moderate bilateral pleural effusions. Scattered nodular densities throughout both lungs. Cardiomegaly. : 08/11/16 CTA Chest- No large central or segmental pulmonary embolus evident. Emphysematous changes. Small to moderate right greater than left pleural effusions and associated compressive consolidations. Cardiomegaly. No significant pericardial effusion. Atherosclerotic calcifications of the aorta. Dense coronary artery calcifications. : 08/11/16 CXR- Biapical pleural thickening with upper lobe granulomatous changes. Prominent calcified granulomatous changes in the right lung apex. Moderate bilateral pleural effusions with prominent airspace opacities in the mid to lower lung zones bilaterally. Scattered nodularity throughout both lungs. Diffuse increased interstitial lung markings throughout both lungs. : 08/10/16 CXR- Cardiomegaly and atherosclerotic disease; bilateral pleural effusions with basilar opacities atelectasis and/or infiltrate, findings greatest on the left Gastrointestinal: -No acute complaints -Tube feeding- isosource goal 40ml/hr Hematology: -No acute issues Endocrine: -No issues Renal: -Metabolic Alkalosis- improving- likely 2/2 loop diuretic use -Hypomagnesemia- replaced with 1g mag IV Musculoskeletal: -Dopple US Negative for DVT -Right Garden IV Displaced Subcapital Femoral Neck Fracture : Plan for TAMARA with Dr. Elena 11:30 AM, hold heparin 4 hours before -Left Isolated Greater Trochanter Fracture -Pain Control- Tylenol 650mg PO q6 PRN, morphine 1mg IV q4 PRN -Dr. Elena on case for orthopedic evaluation -Imaging -08/08/16 R Knee XR- no acute fracture of dislocation -08/07/16 CT Pelvis- 1. Impacted fracture of the proximal right femur. This appears and involves the neck of the femur. 2. Preserved right femoral acetabular relationship. 3. Destructive process with associated fracture of the greater trochanter left femur. Abundant soft tissue swelling noted. . By history, the patient does not have a known malignancy. -08/07/16 Pelvis XR- Fracture right femoral neck with displacement and mild impaction. Questionable fracture of left greater trochanter. Please correlate clinically and consider further radiographic evaluation. Genitourinary: -No issues -Continue jones catheter Infectious Disease: -cefepime started 1g q12- day 1 GI Prophylaxis: Protonix 40mg PO daily DVT Prophylaxis: Lovenox 40mg SC daily Case Discussed with Dr. Lupe Grijalva PGY1 - Date & Time Date: 08/14/16 Time: 14:34 <Max Andrade - Last Filed: 08/14/16 17:44> CCU Objective - Vital Signs / Intake & Output Vital Signs (Last 4 hours): Vital Signs Temp Pulse Resp BP Pulse Ox 08/14/16 14:00 111 H 17 97 08/14/16 13:51 113 H 17 126/75 97 08/14/16 13:00 98 H 19 97 08/14/16 12:51 102 H 26 H 109/59 L 96 08/14/16 12:42 90 19 100/60 100 08/14/16 12:00 98.6 F 99 H 19 99 08/14/16 11:51 88 20 100/60 100 08/14/16 11:00 85 16 99 Intake and Output (Last 8hrs): Intake & Output 08/13/16 08/14/16 08/14/16 22:59 06:59 14:59 Intake Total 1341.4 832 938.0 Output Total 259 328 175 Balance 1082.4 504 763.0 Intake: IV 4 Intake, IV Amount 1341.4 832 874.0 Left Femoral TLC Distal 112 32 49.0 Left Femoral TLC Medial 6 Left Femoral TLC Proximal 1199 800 825 Right Antecubital 24.4 Oral 0 Tube Feeding 60 Output: Urine 258 328 175 Urethral (Jones) 258 328 175 Urine/Stool Mix 1 - Medications Active Medications: Active Medications Generic Name Dose Route Start Last Admin Trade Name Freq PRN Reason Stop Dose Admin Acetaminophen 650 mg 08/09/16 09:02 08/12/16 09:53 Tylenol 325mg Tab PO 650 mg Q6 PRN Administration Pain, Mild (1-3) Digoxin 0.25 mg 08/11/16 18:00 08/13/16 17:35 Lanoxin PO 0.25 mg DAILY@1800 [place] Administration Norepinephrine Bitartrate 4 mg 254 mls @ 15.24 mls/hr 08/14/16 11:10 14:00 / Sodium Chloride IV 1 mcg/min .[id number] PRN 3.81 mls/hr TITRATE PER MD ORDER Titration Protocol 4 MCG/MIN Cefepime HCl 1 gm/ Dextrose 50 mls @ 100 mls/hr 08/14/16 12:00 08/14/16 12:44 IVPB 100 mls/hr Q12H [place] Administration Sodium Chloride 1,000 mls @ 75 mls/hr 08/14/16 11:32 08/14/16 12:21 Sodium Chloride 0.9% IV 75 mls/hr .[id number] [place] Administration Lorazepam 1 mg 08/13/16 19:54 08/14/16 03:59 Ativan IVP 1 mg Q3H PRN Administration Anxiety Metoprolol Tartrate 25 mg 08/12/16 18:00 08/14/16 10:06 Lopressor PO 25 mg BID [place] Administration Morphine Sulfate 1 mg 08/11/16 15:44 08/13/16 08:29 Morphine IV 1 mg Q4 PRN Administration Pain, severe (8-10) Pantoprazole Sodium 40 mg 08/14/16 10:00 08/14/16 10:06 Protonix Susp GT 40 mg DAILY [place] Administration - Patient Studies Lab Studies: Microbiology Studies 08/14/16 01:50 Gram Stain - Final Trachasp Lab Studies 08/14/16 08/14/16 08/14/16 Range/Units 14:16 06:31 06:31 WBC (4.8-10.8) K/uL RBC (3.80-5.20) Mil/uL Hgb (11.0-16.0) g/dL Hct (34.0-47.0) % MCV (81.0-99.0) fL MCH (27.0-31.0) pg MCHC (33.0-37.0) g/dL RDW (11.5-14.5) % Plt Count (130-400) K/uL MPV (7.2-11.7) fL Neut % (Auto) (50.0-75.0) % Lymph % (Auto) (20.0-40.0) % [place] % (Auto) (0.0-10.0) % Eos % (Auto) (0.0-4.0) % Baso % (Auto) (0.0-2.0) % Neut # (1.8-7.0) K/uL Lymph # (1.0-4.3) K/uL [place] # (0.0-0.8) K/uL Eos # (0.0-0.7) K/uL Baso # (0.0-0.2) K/uL Neutrophils % (Manual) (50-75) % Band Neutrophils % (0-2) % Lymphocytes % (Manual) (20-40) % Monocytes % (Manual) (0-10) % Platelet Estimate (NORMAL) Basophilic Stippling Anisocytosis (manual) Macrocytosis (manual) PT 10.9 (9.7-12.2) SECONDS INR 1.0 APTT 29 D (21-34) SECONDS Puncture Site pCO2 (35-45) mm/Hg pO2 (80-100) mm/Hg HCO3 (21-28) mmol/L ABG pH (7.35-7.45) ABG Total CO2 (22-28) mmol/L ABG O2 Saturation (95-98) % ABG Base Excess (-2.0-3.0) mmol/L Seng Test ABG Potassium (3.6-5.2) mmol/L A-a O2 Difference mm/Hg Respiratory Index Sodium 138 (132-148) mmol/l Chloride 105 (98-107) mmol/L Glucose (65-105) mg/dl Lactate (0.7-2.1) mmol/L Mechanical Rate FiO2 % Tidal Volume PEEP Potassium 4.2 (3.6-5.2) mmol/L Carbon Dioxide 29 (22-30) mmol/L Anion Gap 9 L (10-20) BUN 18 H (7-17) mg/dL Creatinine 0.6 L (0.7-1.2) MG/DL Est GFR ( Amer) > 60 Est GFR (Non-Af Amer) > 60 Random Glucose 103 (65-105) mg/dL Calcium 7.5 L (8.6-10.4) mg/dl Phosphorus 3.3 (2.5-4.5) mg/dL Magnesium 1.7 (1.6-2.3) mg/dL Total Bilirubin 0.8 (0.2-1.3) mg/dL AST 42 H D (14-36) U/L ALT 49 (9-52) U/L Alkaline Phosphatase 146 H D (38-126) U/L Total Protein 5.3 L (6.3-8.3) g/dL Albumin 2.4 L (3.5-5.0) g/dL Globulin 2.9 (2.2-3.9) gm/dL Albumin/Globulin Ratio 0.8 L (1.0-2.1) Arterial Blood Potassium (3.6-5.2) mmol/L Urine Color Yellow (YELLOW) Urine Clarity Hazy (Clear) Urine pH 5.0 (5.0-8.0) Ur Specific [place] 1.031 H (1.003-1.030) Urine Protein 1+ H (NEGATIVE) mg/dL Urine Glucose (UA) Normal (Normal) mg/dL Urine Ketones Trace (NEGATIVE) mg/dL Urine Blood 1+ H (NEGATIVE) Urine Nitrate Negative (NEGATIVE) Urine Bilirubin Negative (NEGATIVE) Urine Urobilinogen Normal (0.2-1.0) mg/dL Ur Leukocyte Esterase 2+ H (Negative) David/uL Urine WBC (Auto) 44 H (0-5) /hpf Urine RBC (Auto) 21 H (0-3) /hpf Ur Squamous Epith Cells < 1 (0-5) /hpf Urine Bacteria Occ H (<OCC) 08/14/16 08/14/16 08/13/16 Range/Units 06:31 05:27 20:30 WBC 16.2 H (4.8-10.8) K/uL RBC 3.45 L (3.80-5.20) Mil/uL Hgb 12.4 (11.0-16.0) g/dL Hct 38.5 (34.0-47.0) % MCV 111.6 H (81.0-99.0) fL MCH 36.1 H (27.0-31.0) pg MCHC 32.3 L (33.0-37.0) g/dL RDW 17.3 H (11.5-14.5) % Plt Count 234 (130-400) K/uL MPV 9.8 (7.2-11.7) fL Neut % (Auto) 92.1 H (50.0-75.0) % Lymph % (Auto) 1.7 L (20.0-40.0) % [place] % (Auto) 6.0 (0.0-10.0) % Eos % (Auto) 0.1 (0.0-4.0) % Baso % (Auto) 0.1 (0.0-2.0) % Neut # 15.0 H (1.8-7.0) K/uL Lymph # 0.3 L (1.0-4.3) K/uL [place] # 1.0 H (0.0-0.8) K/uL Eos # 0.0 (0.0-0.7) K/uL Baso # 0.0 (0.0-0.2) K/uL Neutrophils % (Manual) 84 H (50-75) % Band Neutrophils % 8 H (0-2) % Lymphocytes % (Manual) 2 L (20-40) % Monocytes % (Manual) 6 (0-10) % Platelet Estimate Normal (NORMAL) Basophilic Stippling Slight Anisocytosis (manual) Slight Macrocytosis (manual) Moderate PT (9.7-12.2) SECONDS INR APTT (21-34) SECONDS Puncture Site Rb Rba pCO2 45 54 H (35-45) mm/Hg pO2 58 L 74 L (80-100) mm/Hg HCO3 29.1 H 24.8 (21-28) mmol/L ABG pH 7.44 7.31 L (7.35-7.45) ABG Total CO2 32.0 H 28.9 H (22-28) mmol/L ABG O2 Saturation 94.3 L 97.2 (95-98) % ABG Base Excess 5.6 H 0 (-2.0-3.0) mmol/L Seng Test Na Pos ABG Potassium 4.2 3.8 (3.6-5.2) mmol/L A-a O2 Difference 599.0 572.0 mm/Hg Respiratory Index 10.3 7.7 Sodium 140.0 142.0 (132-148) mmol/l Chloride 112.0 H 113.0 H (98-107) mmol/L Glucose 98 155 H (65-105) mg/dl Lactate 0.8 1.6 (0.7-2.1) mmol/L Mechanical Rate 14 14 FiO2 100.0 100.0 % Tidal Volume 400 400 PEEP 5 5 Potassium (3.6-5.2) mmol/L Carbon Dioxide (22-30) mmol/L Anion Gap (10-20) BUN (7-17) mg/dL Creatinine (0.7-1.2) MG/DL Est GFR ( Amer) Est GFR (Non-Af Amer) Random Glucose (65-105) mg/dL Calcium (8.6-10.4) mg/dl Phosphorus (2.5-4.5) mg/dL Magnesium (1.6-2.3) mg/dL Total Bilirubin (0.2-1.3) mg/dL AST (14-36) U/L ALT (9-52) U/L Alkaline Phosphatase (38-126) U/L Total Protein (6.3-8.3) g/dL Albumin (3.5-5.0) g/dL Globulin (2.2-3.9) gm/dL Albumin/Globulin Ratio (1.0-2.1) Arterial Blood Potassium 4.2 3.8 (3.6-5.2) mmol/L Urine Color (YELLOW) Urine Clarity (Clear) Urine pH (5.0-8.0) Ur Specific [place] (1.003-1.030) Urine Protein (NEGATIVE) mg/dL Urine Glucose (UA) (Normal) mg/dL Urine Ketones (NEGATIVE) mg/dL Urine Blood (NEGATIVE) Urine Nitrate (NEGATIVE) Urine Bilirubin (NEGATIVE) Urine Urobilinogen (0.2-1.0) mg/dL Ur Leukocyte Esterase (Negative) David/uL Urine WBC (Auto) (0-5) /hpf Urine RBC (Auto) (0-3) /hpf Ur Squamous Epith Cells (0-5) /hpf Urine Bacteria (<OCC) Laboratory Results - last 24 hr 08/13/16 08/14/16 08/14/16 20:30 05:27 06:31 WBC 16.2 H RBC 3.45 L Hgb 12.4 Hct 38.5 MCV 111.6 H MCH 36.1 H MCHC 32.3 L RDW 17.3 H Plt Count 234 MPV 9.8 Neut % (Auto) 92.1 H Lymph % (Auto) 1.7 L [place] % (Auto) 6.0 Eos % (Auto) 0.1 Baso % (Auto) 0.1 Neut # 15.0 H Lymph # 0.3 L [place] # 1.0 H Eos # 0.0 Baso # 0.0 Neutrophils % (Manual) 84 H Band Neutrophils % 8 H Lymphocytes % (Manual) 2 L Monocytes % (Manual) 6 Platelet Estimate Normal Basophilic Stippling Slight Anisocytosis (manual) Slight Macrocytosis (manual) Moderate PT INR APTT Puncture Site Rba Rb pCO2 54 H 45 pO2 74 L 58 L HCO3 24.8 29.1 H ABG pH 7.31 L 7.44 ABG Total CO2 28.9 H 32.0 H ABG O2 Saturation 97.2 94.3 L ABG Base Excess 0 5.6 H Seng Test Pos Na ABG Potassium 3.8 4.2 A-a O2 Difference 572.0 599.0 Respiratory Index 7.7 10.3 Sodium 142.0 140.0 Chloride 113.0 H 112.0 H Glucose 155 H 98 Lactate 1.6 0.8 Mechanical Rate 14 14 FiO2 100.0 100.0 Tidal Volume 400 400 PEEP 5 5 Potassium Carbon Dioxide Anion Gap BUN Creatinine Est GFR ( Amer) Est GFR (Non-Af Amer) Random Glucose Calcium Phosphorus Magnesium Total Bilirubin AST ALT Alkaline Phosphatase Total Protein Albumin Globulin Albumin/Globulin Ratio Arterial Blood Potassium 3.8 4.2 Urine Color Urine Clarity Urine pH Ur Specific [place] Urine Protein Urine Glucose (UA) Urine Ketones Urine Blood Urine Nitrate Urine Bilirubin Urine Urobilinogen Ur Leukocyte Esterase Urine WBC (Auto) Urine RBC (Auto) Ur Squamous Epith Cells Urine Bacteria 08/14/16 08/14/16 08/14/16 06:31 06:31 14:16 WBC RBC Hgb Hct MCV MCH MCHC RDW Plt Count MPV Neut % (Auto) Lymph % (Auto) [place] % (Auto) Eos % (Auto) Baso % (Auto) Neut # Lymph # [place] # Eos # Baso # Neutrophils % (Manual) Band Neutrophils % Lymphocytes % (Manual) Monocytes % (Manual) Platelet Estimate Basophilic Stippling Anisocytosis (manual) Macrocytosis (manual) PT 10.9 INR 1.0 APTT 29 D Puncture Site pCO2 pO2 HCO3 ABG pH ABG Total CO2 ABG O2 Saturation ABG Base Excess Seng Test ABG Potassium A-a O2 Difference Respiratory Index Sodium 138 Chloride 105 Glucose Lactate Mechanical Rate FiO2 Tidal Volume PEEP Potassium 4.2 Carbon Dioxide 29 Anion Gap 9 L BUN 18 H Creatinine 0.6 L Est GFR ( Amer) > 60 Est GFR (Non-Af Amer) > 60 Random Glucose 103 Calcium 7.5 L Phosphorus 3.3 Magnesium 1.7 Total Bilirubin 0.8 AST 42 H D ALT 49 Alkaline Phosphatase 146 H D Total Protein 5.3 L Albumin 2.4 L Globulin 2.9 Albumin/Globulin Ratio 0.8 L Arterial Blood Potassium Urine Color Yellow Urine Clarity Hazy Urine pH 5.0 Ur Specific [place] 1.031 H Urine Protein 1+ H Urine Glucose (UA) Normal Urine Ketones Trace Urine Blood 1+ H Urine Nitrate Negative Urine Bilirubin Negative Urine Urobilinogen Normal Ur Leukocyte Esterase 2+ H Urine WBC (Auto) 44 H Urine RBC (Auto) 21 H Ur Squamous Epith Cells < 1 Urine Bacteria Occ H EKG/Cardiology Studies: Cardiology / EKG Studies 08/13/16 19:48 EKG [ELECTROCARDIOGRAM] Stat Comment: Mode Of Transportation: Reason For Exam: s/p code blue Precautions: Standard Critical Care Progress Note - Nutrition Nutrition: Nutrition Category Date Time Status NPO Diet [DIET] Diets 08/14/16 Breakfast Active Attending/Attestation - Attestation I have personally seen and examined this patient.: Yes I have fully participated in the care of the patient.: Yes I have reviewed all pertinent clinical information: Yes Notes (Text): 08/14/16 14:59 I have seen and examined the patient. Medical records, lab studies, and imaging were reviewed by me and a management plan was formulated on multidisciplinary rounds with resident Dr. Grijalva. I agree with their above documented assessment and plan. Patient is s/p cardiac arrest, she is now responsive and following commands. Will start PS trials. Patient is in oliguric renal failure, will start albumin drip. Critical Care Time 35 minutes. Multi-disciplinary rounds were performed with house staff, nursing, speech therapy, respiratory therapy, pharmacy and nutrition with integrated input from the primary team/attending and other consulting services. The documented time is cumulative and includes review of patient data/exams/labs/chart review and examination of the patient on rounds and throughout the day; time is exclusive of any procedures or teaching time. 08/14/16 17:42
[2016-08-14 14:54] LABS: SQUAMOUS EPITHIAL < 1 /hpf (0-5); URINE BACTERIA OCC (<OCC); URINE BILIRUBIN NEGATIVE (NEGATIVE); URINE BLOOD 1+ (NEGATIVE); URINE CLARITY Hazy (Clear); URINE COLOR Yellow (YELLOW); URINE GLUCOSE (UA) NORMAL (Normal); URINE LEUKOCYTE ESTERASE 2+ Leu/uL (Negative); URINE NITRATE NEGATIVE (NEGATIVE); URINE PROTEIN 1+ mg/dL (NEGATIVE); URINE UROBILINOGEN NORMAL mg/dL (0.2-1.0)
[2016-08-14] MEDS ORDERED: Albumin Human 5% (12.5 gm/250 ml) IV ONE (16:00)
--- NOTE | 2016-08-14 16:39 | RAD ---
HISTORY: CHF COMPARISON: 08/13/2016 FINDINGS: LUNGS: Lung volumes are increased - background COPD suspect. Similar hyperaeration suggestive on prior chest x-ray. Renoted are diffuse the increased interstitial lung markings a coalescence of these interstitial markings into airspace opacities at the right lung base are less suggested. Some partial clearing and/or partial increased/improved aeration here is likely. The left basal consolidation is renoted. A sub cm nodular opacity here is noted -the breast nipple is believe projecting -lateral to the left rib cage PLEURA: Left pleural effusion similar-appearing CARDIOVASCULAR: Normal. OSSEOUS STRUCTURES: On the current study very faint nondisplaced left lateral rib fracture is question- below this and above this faint suggestion of minimal callus suggesting at minimal new some element of subacute tear are fracture and some healing. There is slight deformity of the mid cage as well which is not significantly changed. No gross pneumothorax is seen. Clinical correlation regarding prior known rib fractures is recommended in this patient with generalized osteopenia VISUALIZED UPPER ABDOMEN: Normal. OTHER FINDINGS: Interval insertion of an NG tube its tip is beyond the inferior edge of this study. At least it traverses beyond the GE junction the endotracheal tube is approximately 1 cm inferior to medial clavicle borders IMPRESSION: The left basilar consolidation with left basal consolidation and small left pleural effusion is renoted. A sub cm nodular opacity is now apparent bordering the left heart border ; its etiology is uncertain. . It previously may have been obscured been partially obscured on the prior study Nondisplaced left rib fractures as detailed above. Some of these have callus formation a connecting an element of at minimum subacute etiology. All definitely have callus formation. Clinical correlation is a recommended regarding patient's symptoms. No gross pneumothorax. Bilateral hyperaeration consistent with background COPD. Background diffuse interstitial lung disease. Some improved aeration is suggested at the right lung base. Minimal residual right pleural effusion here probable Endotracheal tube satisfactory position. Interval insertion of NG tube as detailed above
[2016-08-14] MEDS: Digoxin 250 mcg (0.25 mg) Tab PO SCH (17:49)
--- NOTE | 2016-08-14 19:45 | CP.PCM.PN ---
Subjective - Date & Time of Evaluation Date of Evaluation: 08/14/16 Time of Evaluation: 19:42 - Subjective Subjective: Patient remains intubated, on respirator, sedated , on IV Levophed and Cefepime. Poor urine output. Will try Lasix 20 mg IV stat. Objective - Vital Signs/Intake and Output Vital Signs (last 24 hours): Temp Pulse Resp BP Pulse Ox 99 F 94 H 17 141/72 98 08/14/16 16:00 08/14/16 19:22 08/14/16 19:22 08/14/16 19:22 08/14/16 19:22 Intake and Output: 08/14/16 08/15/16 18:59 06:59 Intake Total 1391.8 130 Output Total 235 5 Balance 1156.8 125 - Medications Medications: Current Medications Acetaminophen (Tylenol 325mg Tab) 650 mg PO Q6 PRN PRN Reason: Pain, Mild (1-3) Last Admin: 08/12/16 09:53 Dose: 650 mg Digoxin (Lanoxin) 0.25 mg PO DAILY@1800 [facility] Last Admin: 08/14/16 17:49 Dose: 0.25 mg Norepinephrine Bitartrate 4 mg (/ Sodium Chloride) 254 mls @ 15.24 mls/hr IV .[id number] PRN; Protocol; 4 MCG/MIN PRN Reason: TITRATE PER MD ORDER Last Titration: 08/14/16 14:00 Dose: 1 mcg/min, 3.81 mls/hr Cefepime HCl 1 gm/ Dextrose 50 mls @ 100 mls/hr IVPB Q12H [facility] Last Admin: 08/14/16 12:44 Dose: 100 mls/hr Sodium Chloride (Sodium Chloride 0.9%) 1,000 mls @ 75 mls/hr IV .[id number] [facility] Last Admin: 08/14/16 12:21 Dose: 75 mls/hr Lorazepam (Ativan) 1 mg IVP Q3H PRN PRN Reason: Anxiety Last Admin: 08/14/16 03:59 Dose: 1 mg Metoprolol Tartrate (Lopressor) 25 mg PO BID [facility] Last Admin: 08/14/16 17:48 Dose: 25 mg Morphine Sulfate (Morphine) 2 mg IV Q4 PRN PRN Reason: Pain, severe (8-10) Last Admin: 08/14/16 15:56 Dose: 2 mg Pantoprazole Sodium (Protonix Susp) 40 mg GT DAILY [place] Last Admin: 08/14/16 10:06 Dose: 40 mg - Labs Labs: 08/14/16 06:31 08/14/16 06:31 PT 10.9 SECONDS (9.7-12.2) 08/14/16 06:31 INR 1.0 08/14/16 06:31 APTT 29 SECONDS (21-34) D 08/14/16 06:31 - Constitutional Appears: Chronically Ill - Head Exam Head Exam: NORMAL INSPECTION - Eye Exam Eye Exam: Normal appearance - ENT Exam ENT Exam: Normal Exam - Neck Exam Neck Exam: Normal Inspection - Respiratory Exam Respiratory Exam: Rhonchi - Cardiovascular Exam Cardiovascular Exam: Irregular Rhythm - GI/Abdominal Exam GI & Abdominal Exam: Soft, Normal Bowel Sounds - Rectal Exam Rectal Exam: Deferred - Back Exam Back Exam: NORMAL INSPECTION - Neurological Exam Additional comments: Sedated. - Skin Additional comments: Abrasions over arms, hips, knees. Left periorbital hematoma. Assessment and Plan (1) Closed fracture of greater trochanter of left femur Status: Acute (2) Dehydration Status: Resolved (3) Sepsis Status: Acute (4) Fall Status: Acute (5) Arrhythmia Status: Acute (6) Contusion of head Status: Acute (7) Garden grade IV closed subcapital fracture of proximal end of right femur Status: Acute (8) CHF exacerbation Status: Acute (9) Acute respiratory failure Assessment & Plan: To continue ventilation support, IV antibiotic. Status: Acute
[2016-08-15] MEDS: Acetaminophen 650mg/20.3ml solution UD PO PRN (00:15)
[2016-08-15] MEDS: Sodium Chloride 0.9% 1,000 ML IV SCH ×3 (01:29→18:23)
[2016-08-15 05:48] LABS: ABG ALLEN TEST POS; ARTERIAL BLOOD GAS HCO3 27.7 mmol/L (21-28); ARTERIAL BLOOD GAS O2 SAT 97.2 % (95-98); ARTERIAL BLOOD GAS PCO2 49 mm/Hg (35-45); ARTERIAL BLOOD GAS PH 7.39 (7.35-7.45); ARTERIAL BLOOD GAS PO2 75 mm/Hg (80-100); ARTERIAL BLOOD GAS TCO2 31.2 mmol/L (22-28)
[2016-08-15 06:21] LABS: BASO % 0.2 % (0.0-2.0); EOS # 0.1 K/uL (0.0-0.7); EOS % 0.5 % (0.0-4.0); LYMPH # 0.3 K/uL (1.0-4.3); LYMPH % 2.5 % (20.0-40.0); MEAN CELL VOLUME 110.7 fL (81.0-99.0); MEAN CORPUSCULAR HEMOGLOBIN 35.9 pg (27.0-31.0); MEAN CORPUSCULAR HGB CONC 32.5 g/dL (33.0-37.0); MEAN PLATELET VOLUME 9.2 fL (7.2-11.7); MONO # 1.2 K/uL (0.0-0.8); MONO % 8.8 % (0.0-10.0); NEUT # 11.8 K/uL (1.8-7.0); PLATELET COUNT 211 K/uL (130-400); RBC 2.86 Mil/uL (3.80-5.20); RED CELL DISTRIBUTION WIDTH 16.9 % (11.5-14.5); WHITE BLOOD COUNT 13.4 K/uL (4.8-10.8)
[2016-08-15 06:29] LABS: HEMOGLOBIN 10.3 g/dL (11.0-16.0)
[2016-08-15 06:36] LABS: PROTHROMBIN TIME 10.8 SECONDS (9.7-12.2)
[2016-08-15 06:50] LABS: ALBUMIN 2.4 g/dL (3.5-5.0)
[2016-08-15 06:52] LABS: GFR AFRICAN-AMERICAN > 60; GFR NON-AFRICAN AMERICAN > 60
[2016-08-15 06:53] LABS: ALB/GLOB RATIO 0.9 (1.0-2.1); ALT/SGPT 35 U/L (9-52); AST/SGOT 23 U/L (14-36); BLOOD UREA NITROGEN 20 mg/dL (7-17)
[2016-08-15 06:54] LABS: CALCIUM 7.6 mg/dl (8.6-10.4); MAGNESIUM 1.8 mg/dL (1.6-2.3)
[2016-08-15] MEDS ORDERED: Magnesium Sulfate 1 gm in D5W 1 GM/100 ML BAG IVPB ONE (07:46)
--- NOTE | 2016-08-15 07:47 | CP.CCUPN ---
<Donnell Grijalva - Last Filed: 08/15/16 13:11> CCU Subjective - Physician Review Subjective (Free Text): 08/11/16 15:46 Patient seen and examined at the bedside. No acute distress. No acute events overnight. Nursing staff reports no issues. Patient's pain is controlled with PO tylenol at this point. Morphine added for additional pain control PRN. The patient has an acute exacerbation of CHF and remains medically unfit for OR for TAMARA. The patient denies fever, chills, headache, chest pain, SOB, abdominal pain, N/V/D/C. Today on rounds, the patient was placed on scheduled PO digoxin 0.25mg, and IV morphine 1mg q4 prn was added for additional pain control. The topic of advanced directives was also discussed at length. 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 Under circumstances where recovery to a quality of live that will enable her to care for her is not certain, she wishes no extraordinary measures to be taken. 08/12/16 14:52 Patient seen and examined at the bedside. No acute distress. No acute events overnight. Nursing staff reports no issues. Patient's pain is controlled with PO tylenol and morphine PRN. The patient has been tentatively scheduled for OR at 11:30am with Dr. Elena pending medical risk assessment and clearance. The patient reports continued right leg pain. Per the patient, the pain is adequately controlled. The patient denies fever, chills, headache, chest pain, SOB, abdominal pain, N/V/D/C. Today on rounds, the patient's heparin drip was changed to cardiac protocol. Dr. Peacock was consulted for chronic low ejection systolic heart failure and new onset a-fib. The patient's phosphorous, magnesium, and potassium were replaced. To supplement her diet, Boost was added with all meals and ensure was added one time daily at night. 08/13/16 11:30 Patient seen and examined at the bedside. No acute distress. No acute events overnight. Nursing staff reports no issues. Patient is for cardiac cath with Dr. Cantu today. Patient is in pain this morning. 1 dose of morphine was given with good result. The patient is tentatively scheduled for the OR on with Dr. Elena pending medical risk assessment and stratification. The patient denies fever, chills, headache, chest pain, SOB, abdominal pain, N/V/D/ C. Today on rounds, The patients phosphorous was replaced. Repeat TONY panel and EKG were also ordered for 13:00 t0 trend mildly elevated troponin measurements. 08/14/16 14:28 Patient seen and examined at the bedside. No acute distress. Patient called for code blue at 19:34 last night. Patient was intubated by continuity director at bedside. Patient on PRVC this morning. Central line access left femoral vein. Nursing staff reports no issues. Today on rounds, the patient's presser was changed to levophed from dopamine, lovenox VTE prophylaxis was initiated, tube feeds were started, cerna cultures were sent, and the patients magnesium was replaced. 08/15/16 07:44 Patient seen and examined at the bedside. No acute distress. No acute events overnight. Nursing staff reports no issues. Patient was trialed on CPAP yesterday and tolerated it for a short time. Curently on PRVC (400 / 12 / 60% / 5) The patient is restless this morning. The patient appears more awake this morning. The overnight nursing staff reports that the patient intermittently followed commands. This morning the patient is minimally able to follow commands. Today on rounds, the patient's magnesium was replaced. A ct head and CTA chest were also ordered. Critical Care Time Spent (in minutes): 90 CCU Objective - Vital Signs / Intake & Output Vital Signs (Last 4 hours): Vital Signs Temp Pulse Resp BP Pulse Ox 08/15/16 07:00 81 14 99 08/15/16 06:59 85 14 115/66 99 08/15/16 06:00 89 14 97 08/15/16 05:59 95 H 15 118/60 98 08/15/16 05:00 97 H 14 97 08/15/16 04:59 98 H 14 132/76 96 08/15/16 04:00 98.5 F 98 H 15 146/77 98 Intake and Output (Last 8hrs): Intake & Output 08/14/16 08/15/16 08/15/16 22:59 06:59 14:59 Intake Total 973.8 985 115 Output Total 365 385 30 Balance 608.8 600 85 Intake: IV 0 Intake, IV Amount 753.8 700 75 Left Femoral TLC Distal 3.8 Left Femoral TLC Medial 150 100 0 Left Femoral TLC Proximal 600 600 75 Tube Feeding 220 285 40 Output: Urine 365 385 30 Urethral (Jones) 365 385 30 Other: # Bowel Movements 0 0 0 - Physical Exam Head: Positive for: Normocephalic, Ecchymosis, Other (Contusions over left side of face, ET Tube in place). Negative for: Atraumatic Pupils: Positive for: PERRL Extroacular Muscles: Positive for: EOMI Conjunctiva: Positive for: Normal Mouth: Positive for: Moist Mucous Membranes Neck: Positive for: Normal Range of Motion. Negative for: JVD, Bruit Respiratory/Chest: Positive for: Good Air Exchange, Decreased Breath Sounds ( bibasilar R > L), Rales (bibasilar ). Negative for: Clear to Auscultation, Respiratory Distress, Accessory Muscle Use, Wheezes, Retracting, Rhonchi Cardiovascular: Positive for: Regular Rate and Rhythm, Normal S1, S2, Peripheal Pulses Present. Negative for: Murmurs Abdomen: Positive for: Normal Bowel Sounds. Negative for: Tenderness, Distention, Peritoneal Signs, Rebound, Guarding Upper Extremity: Positive for: Normal Inspection, NORMAL PULSES, Neurovascularly Intact Lower Extremity: Positive for: NORMAL PULSES, Deformity (right leg shotened and externally rotated ), Neurovascularly Intact, Other (tenderness over b/l hips to palpation). Negative for: Normal Inspection, Normal ROM Neurological: Positive for: CN II-XII Intact, Speech Normal, Motor Func Grossly Intact Skin: Positive for: Warm, Dry, Normal Color. Negative for: Rashes Psychiatric: Positive for: Alert, Oriented x 3 - Medications Active Medications: Active Medications Generic Name Dose Route Start Last Admin Trade Name Freq PRN Reason Stop Dose Admin Acetaminophen 650 mg 08/14/16 23:50 08/15/16 00:15 Tylenol 650mg/20.3ml Solution Ud PO 650 mg Q6H PRN Administration temp.100.4&above;mild pain 1-3 Digoxin 0.25 mg 08/11/16 18:00 08/14/16 17:49 Lanoxin PO 0.25 mg DAILY@1800 [place] Administration Norepinephrine Bitartrate 4 mg 254 mls @ 15.24 mls/hr 08/14/16 11:10 19:30 / Sodium Chloride IV 0 mcg/min .[id number] PRN 0 mls/hr TITRATE PER MD ORDER Titration Protocol 4 MCG/MIN Cefepime HCl 1 gm/ Dextrose 50 mls @ 100 mls/hr 08/14/16 12:00 08/14/16 23:31 IVPB 100 mls/hr Q12H [place] Administration Sodium Chloride 1,000 mls @ 75 mls/hr 08/14/16 11:32 08/15/16 01:29 Sodium Chloride 0.9% IV 75 mls/hr .[id number] [place] Administration Lorazepam 1 mg 08/13/16 19:54 08/14/16 03:59 Ativan IVP 1 mg Q3H PRN Administration Anxiety Metoprolol Tartrate 25 mg 08/12/16 18:00 08/14/16 17:48 Lopressor PO 25 mg BID [place] Administration Morphine Sulfate 2 mg 08/14/16 15:36 08/15/16 04:20 Morphine IV 2 mg Q4 PRN Administration Pain, severe (8-10) Pantoprazole Sodium 40 mg 08/14/16 10:00 08/14/16 10:06 Protonix Susp GT 40 mg DAILY [place] Administration - Patient Studies Lab Studies: Microbiology Studies 08/14/16 01:50 Gram Stain - Final Trachasp Lab Studies 08/15/16 08/15/16 08/15/16 Range/Units 06:14 06:14 06:14 WBC 13.4 H (4.8-10.8) K/uL RBC 2.86 L (3.80-5.20) Mil/uL Hgb 10.3 L D (11.0-16.0) g/dL Hct 31.6 L (34.0-47.0) % MCV 110.7 H (81.0-99.0) fL MCH 35.9 H (27.0-31.0) pg MCHC 32.5 L (33.0-37.0) g/dL RDW 16.9 H (11.5-14.5) % Plt Count 211 (130-400) K/uL MPV 9.2 (7.2-11.7) fL Neut % (Auto) 88.0 H (50.0-75.0) % Lymph % (Auto) 2.5 L (20.0-40.0) % [place] % (Auto) 8.8 (0.0-10.0) % Eos % (Auto) 0.5 (0.0-4.0) % Baso % (Auto) 0.2 (0.0-2.0) % Neut # 11.8 H (1.8-7.0) K/uL Lymph # 0.3 L (1.0-4.3) K/uL [place] # 1.2 H (0.0-0.8) K/uL Eos # 0.1 (0.0-0.7) K/uL Baso # 0.0 (0.0-0.2) K/uL Neutrophils % (Manual) (50-75) % Band Neutrophils % (0-2) % Lymphocytes % (Manual) (20-40) % Monocytes % (Manual) (0-10) % Platelet Estimate (NORMAL) Basophilic Stippling Anisocytosis (manual) Macrocytosis (manual) PT 10.8 (9.7-12.2) SECONDS INR 1.0 APTT 32 (21-34) SECONDS Puncture Site pCO2 (35-45) mm/Hg pO2 (80-100) mm/Hg HCO3 (21-28) mmol/L ABG pH (7.35-7.45) ABG Total CO2 (22-28) mmol/L ABG O2 Saturation (95-98) % ABG Base Excess (-2.0-3.0) mmol/L Seng Test ABG Potassium (3.6-5.2) mmol/L A-a O2 Difference mm/Hg Respiratory Index Sodium 138 (132-148) mmol/l Chloride 106 (98-107) mmol/L Glucose (65-105) mg/dl Lactate (0.7-2.1) mmol/L Mechanical Rate FiO2 % Tidal Volume PEEP Potassium 3.9 (3.6-5.2) mmol/L Carbon Dioxide 28 (22-30) mmol/L Anion Gap 8 L (10-20) BUN 20 H (7-17) mg/dL Creatinine 0.7 (0.7-1.2) MG/DL Est GFR ( Amer) > 60 Est GFR (Non-Af Amer) > 60 Random Glucose 115 H (65-105) mg/dL Calcium 7.6 L (8.6-10.4) mg/dl Phosphorus 2.6 (2.5-4.5) mg/dL Magnesium 1.8 (1.6-2.3) mg/dL Total Bilirubin 0.6 (0.2-1.3) mg/dL AST 23 (14-36) U/L ALT 35 (9-52) U/L Alkaline Phosphatase 107 (38-126) U/L Total Protein 5.0 L (6.3-8.3) g/dL Albumin 2.4 L (3.5-5.0) g/dL Globulin 2.6 (2.2-3.9) gm/dL Albumin/Globulin Ratio 0.9 L (1.0-2.1) Arterial Blood Potassium (3.6-5.2) mmol/L Urine Color (YELLOW) Urine Clarity (Clear) Urine pH (5.0-8.0) Ur Specific [place] (1.003-1.030) Urine Protein (NEGATIVE) mg/dL Urine Glucose (UA) (Normal) mg/dL Urine Ketones (NEGATIVE) mg/dL Urine Blood (NEGATIVE) Urine Nitrate (NEGATIVE) Urine Bilirubin (NEGATIVE) Urine Urobilinogen (0.2-1.0) mg/dL Ur Leukocyte Esterase (Negative) David/uL Urine WBC (Auto) (0-5) /hpf Urine RBC (Auto) (0-3) /hpf Ur Squamous Epith Cells (0-5) /hpf Urine Bacteria (<OCC) 08/15/16 08/14/16 08/14/16 Range/Units 05:26 14:16 06:31 WBC (4.8-10.8) K/uL RBC (3.80-5.20) Mil/uL Hgb (11.0-16.0) g/dL Hct (34.0-47.0) % MCV (81.0-99.0) fL MCH (27.0-31.0) pg MCHC (33.0-37.0) g/dL RDW (11.5-14.5) % Plt Count (130-400) K/uL MPV (7.2-11.7) fL Neut % (Auto) (50.0-75.0) % Lymph % (Auto) (20.0-40.0) % [place] % (Auto) (0.0-10.0) % Eos % (Auto) (0.0-4.0) % Baso % (Auto) (0.0-2.0) % Neut # (1.8-7.0) K/uL Lymph # (1.0-4.3) K/uL [place] # (0.0-0.8) K/uL Eos # (0.0-0.7) K/uL Baso # (0.0-0.2) K/uL Neutrophils % (Manual) 84 H (50-75) % Band Neutrophils % 8 H (0-2) % Lymphocytes % (Manual) 2 L (20-40) % Monocytes % (Manual) 6 (0-10) % Platelet Estimate Normal (NORMAL) Basophilic Stippling Slight Anisocytosis (manual) Slight Macrocytosis (manual) Moderate PT (9.7-12.2) SECONDS INR APTT (21-34) SECONDS Puncture Site Rr pCO2 49 H (35-45) mm/Hg pO2 75 L (80-100) mm/Hg HCO3 27.7 (21-28) mmol/L ABG pH 7.39 (7.35-7.45) ABG Total CO2 31.2 H (22-28) mmol/L ABG O2 Saturation 97.2 (95-98) % ABG Base Excess 3.7 H (-2.0-3.0) mmol/L Seng Test Pos ABG Potassium 3.6 (3.6-5.2) mmol/L A-a O2 Difference 292.0 mm/Hg Respiratory Index 3.9 Sodium 144.0 (132-148) mmol/l Chloride 114.0 H (98-107) mmol/L Glucose 109 H (65-105) mg/dl Lactate 0.7 (0.7-2.1) mmol/L Mechanical Rate 12 FiO2 60.0 % Tidal Volume 400 PEEP 5 Potassium (3.6-5.2) mmol/L Carbon Dioxide (22-30) mmol/L Anion Gap (10-20) BUN (7-17) mg/dL Creatinine (0.7-1.2) MG/DL Est GFR ( Amer) Est GFR (Non-Af Amer) Random Glucose (65-105) mg/dL Calcium (8.6-10.4) mg/dl Phosphorus (2.5-4.5) mg/dL Magnesium (1.6-2.3) mg/dL Total Bilirubin (0.2-1.3) mg/dL AST (14-36) U/L ALT (9-52) U/L Alkaline Phosphatase (38-126) U/L Total Protein (6.3-8.3) g/dL Albumin (3.5-5.0) g/dL Globulin (2.2-3.9) gm/dL Albumin/Globulin Ratio (1.0-2.1) Arterial Blood Potassium 3.6 (3.6-5.2) mmol/L Urine Color Yellow (YELLOW) Urine Clarity Hazy (Clear) Urine pH 5.0 (5.0-8.0) Ur Specific [place] 1.031 H (1.003-1.030) Urine Protein 1+ H (NEGATIVE) mg/dL Urine Glucose (UA) Normal (Normal) mg/dL Urine Ketones Trace (NEGATIVE) mg/dL Urine Blood 1+ H (NEGATIVE) Urine Nitrate Negative (NEGATIVE) Urine Bilirubin Negative (NEGATIVE) Urine Urobilinogen Normal (0.2-1.0) mg/dL Ur Leukocyte Esterase 2+ H (Negative) David/uL Urine WBC (Auto) 44 H (0-5) /hpf Urine RBC (Auto) 21 H (0-3) /hpf Ur Squamous Epith Cells < 1 (0-5) /hpf Urine Bacteria Occ H (<OCC) Laboratory Results - last 24 hr 08/14/16 08/14/16 08/15/16 06:31 14:16 05:26 WBC RBC Hgb Hct MCV MCH MCHC RDW Plt Count MPV Neut % (Auto) Lymph % (Auto) [place] % (Auto) Eos % (Auto) Baso % (Auto) Neut # Lymph # [place] # Eos # Baso # Neutrophils % (Manual) 84 H Band Neutrophils % 8 H Lymphocytes % (Manual) 2 L Monocytes % (Manual) 6 Platelet Estimate Normal Basophilic Stippling Slight Anisocytosis (manual) Slight Macrocytosis (manual) Moderate PT INR APTT Puncture Site Rr pCO2 49 H pO2 75 L HCO3 27.7 ABG pH 7.39 ABG Total CO2 31.2 H ABG O2 Saturation 97.2 ABG Base Excess 3.7 H Seng Test Pos ABG Potassium 3.6 A-a O2 Difference 292.0 Respiratory Index 3.9 Sodium 144.0 Chloride 114.0 H Glucose 109 H Lactate 0.7 Mechanical Rate 12 FiO2 60.0 Tidal Volume 400 PEEP 5 Potassium Carbon Dioxide Anion Gap BUN Creatinine Est GFR ( Amer) Est GFR (Non-Af Amer) Random Glucose Calcium Phosphorus Magnesium Total Bilirubin AST ALT Alkaline Phosphatase Total Protein Albumin Globulin Albumin/Globulin Ratio Arterial Blood Potassium 3.6 Urine Color Yellow Urine Clarity Hazy Urine pH 5.0 Ur Specific [place] 1.031 H Urine Protein 1+ H Urine Glucose (UA) Normal Urine Ketones Trace Urine Blood 1+ H Urine Nitrate Negative Urine Bilirubin Negative Urine Urobilinogen Normal Ur Leukocyte Esterase 2+ H Urine WBC (Auto) 44 H Urine RBC (Auto) 21 H Ur Squamous Epith Cells < 1 Urine Bacteria Occ H 08/15/16 08/15/16 08/15/16 06:14 06:14 06:14 WBC 13.4 H RBC 2.86 L Hgb 10.3 L D Hct 31.6 L MCV 110.7 H MCH 35.9 H MCHC 32.5 L RDW 16.9 H Plt Count 211 MPV 9.2 Neut % (Auto) 88.0 H Lymph % (Auto) 2.5 L [place] % (Auto) 8.8 Eos % (Auto) 0.5 Baso % (Auto) 0.2 Neut # 11.8 H Lymph # 0.3 L [place] # 1.2 H Eos # 0.1 Baso # 0.0 Neutrophils % (Manual) Band Neutrophils % Lymphocytes % (Manual) Monocytes % (Manual) Platelet Estimate Basophilic Stippling Anisocytosis (manual) Macrocytosis (manual) PT 10.8 INR 1.0 APTT 32 Puncture Site pCO2 pO2 HCO3 ABG pH ABG Total CO2 ABG O2 Saturation ABG Base Excess Seng Test ABG Potassium A-a O2 Difference Respiratory Index Sodium 138 Chloride 106 Glucose Lactate Mechanical Rate FiO2 Tidal Volume PEEP Potassium 3.9 Carbon Dioxide 28 Anion Gap 8 L BUN 20 H Creatinine 0.7 Est GFR ( Amer) > 60 Est GFR (Non-Af Amer) > 60 Random Glucose 115 H Calcium 7.6 L Phosphorus 2.6 Magnesium 1.8 Total Bilirubin 0.6 AST 23 ALT 35 Alkaline Phosphatase 107 Total Protein 5.0 L Albumin 2.4 L Globulin 2.6 Albumin/Globulin Ratio 0.9 L Arterial Blood Potassium Urine Color Urine Clarity Urine pH Ur Specific [place] Urine Protein Urine Glucose (UA) Urine Ketones Urine Blood Urine Nitrate Urine Bilirubin Urine Urobilinogen Ur Leukocyte Esterase Urine WBC (Auto) Urine RBC (Auto) Ur Squamous Epith Cells Urine Bacteria Review of Systems - Review of Systems Systems not reviewed;Unavailable: Intubated Critical Care Progress Note - Ventilator Checklist Head of Bed 30 Degrees: Yes Daily Sedation Vacation: Yes Daily Assessment of Readiness to Wean: Yes - Vent Settings MODE:: PRVC TIDAL VOLUME:: 400 RESP RATE:: 12 FIO2:: 60 PEEP:: 5 - Extremities/Vascular Does the Patient have a Central Venous Catheter?: Yes Insertion Site: Femoral Vein (left) Does the Patient need a Central Venous Catheter?: Yes Does the Patient have a Jones Catheter?: Yes Does the Patient need a Jones Catheter?: Yes Catheter Insertion Criteria: Patient requires prolonged immobilization - Prophylaxis GI Prophylaxis GI: PPI - Prophylaxis DVT Prophylaxis DVT: Lovenox - Nutrition Nutrition: Nutrition Category Date Time Status NPO Diet [DIET] Diets 08/14/16 Breakfast Active Assessment/Plan (1) Garden grade IV closed subcapital fracture of proximal end of right femur Current Visit: Yes Status: Acute (2) CHF exacerbation Current Visit: Yes Status: Acute (3) Closed fracture of greater trochanter of left femur Current Visit: Yes Status: Acute (4) Multifocal atrial tachycardia Current Visit: Yes Status: Chronic (5) CHF (NYHA class III, ACC/AHA stage C) Current Visit: Yes Status: Chronic - Assessment and Plan (Free Text) Plan: Patient Status: METLAKATLA II- 21 Neuro: -Ativan 1mg q3 PRN for sedation -No acute issues -No ativan for sedation since 08/14/16 @ 03:59 -08/15/16 CT Head Ordered Cardiovascular: -s/p code blue 08/13/16 -Levophed 4mcg titration for presser support -metoprolol 25mg po bid -08/14/16 Echo ordered- official read pending -Acute Exacerbation of Chronic Systolic CHF (NYHA Class III C) -Multifocal Atrial Tachycardia -Cardiology Consult- Dr. Peacock- life vest on DC -Digoxin 0.25mg PO daily -08/13/16 Cardiac Cath- complete RCA occlusion, good collateral flow from LAD. No stent indicated at this time -08/12/16 EKG- Normal sinus rhythm, normal intervals, normal axis, evidence of anterior wall and inferior wall ischemia- official read pending -08/09/16 Echo- EF 26%, grade I abnormal relaxation pattern, moderate-severe mitral regurgitation, mild pulm HTN Pulmonary: -PRVC intubation (400 / 12 / 60% / 5) -08/15/16 CTA Chest ordered -Imaging : 08/15/16 CXR- : 08/14/16 CXR- stable position of lines and tubes- official read pending : 08/13/16 CXR- Biapical pleural thickening with upper lobe granulomatous changes. Diffuse increased interstitial lung markings. Prominent airspace opacities in the mid to lower lung zones with associated moderate bilateral pleural effusions. Scattered nodular densities throughout both lungs. Cardiomegaly. : 08/11/16 CTA Chest- No large central or segmental pulmonary embolus evident. Emphysematous changes. Small to moderate right greater than left pleural effusions and associated compressive consolidations. Cardiomegaly. No significant pericardial effusion. Atherosclerotic calcifications of the aorta. Dense coronary artery calcifications. : 08/11/16 CXR- Biapical pleural thickening with upper lobe granulomatous changes. Prominent calcified granulomatous changes in the right lung apex. Moderate bilateral pleural effusions with prominent airspace opacities in the mid to lower lung zones bilaterally. Scattered nodularity throughout both lungs. Diffuse increased interstitial lung markings throughout both lungs. : 08/10/16 CXR- Cardiomegaly and atherosclerotic disease; bilateral pleural effusions with basilar opacities atelectasis and/or infiltrate, findings greatest on the left -ABG :08/15/16- CO2 49, O2 75, HCO3 27.7, pH 7.39 :08/14/16- CO2 45, O2 58, HCO3 29.1, pH 7.44 :08/13/16- CO2 54, O2 74, HCO3 24.8, pH 7.31 Gastrointestinal: -No acute complaints -Tube feeding- isosource goal 40ml/hr Hematology: -No acute issues Endocrine: -No issues Renal: -Hypomagnesemia- replaced with 1g mag IV Musculoskeletal: -Doppler US Negative for DVT -Right Garden IV Displaced Subcapital Femoral Neck Fracture -Left Isolated Greater Trochanter Fracture -Pain Control- Tylenol 650mg PO q6 PRN, morphine 1mg IV q4 PRN -Dr. Elena on case for orthopedic evaluation -Imaging -08/08/16 R Knee XR- no acute fracture of dislocation -08/07/16 CT Pelvis- 1. Impacted fracture of the proximal right femur. This appears and involves the neck of the femur. 2. Preserved right femoral acetabular relationship. 3. Destructive process with associated fracture of the greater trochanter left femur. Abundant soft tissue swelling noted. . By history, the patient does not have a known malignancy. -08/07/16 Pelvis XR- Fracture right femoral neck with displacement and mild impaction. Questionable fracture of left greater trochanter. Please correlate clinically and consider further radiographic evaluation. Genitourinary: -No issues -Continue jones catheter Infectious Disease: -cefepime started 1g q12- day 2 GI Prophylaxis: Protonix 40mg PO daily DVT Prophylaxis: Lovenox 40mg SC daily Case Discussed with Dr. Deirdre Grijalva PGY1 - Date & Time Date: 08/15/16 Time: 07:48 <Efra Gilmore - Last Filed: 08/19/16 17:36> CCU Objective - Vital Signs / Intake & Output Vital Signs (Last 4 hours): Vital Signs Pulse Resp BP Pulse Ox 08/19/16 16:03 71 18 134/108 H 100 08/19/16 16:00 84 10 L 08/19/16 15:02 71 14 127/69 08/19/16 15:00 69 14 100 08/19/16 14:02 85 16 127/85 08/19/16 14:00 73 16 98 Intake and Output (Last 8hrs): Intake & Output 08/19/16 08/19/16 08/19/16 06:59 14:59 22:59 Intake Total 470 685 320 Output Total 165 175 40 Balance 305 510 280 Intake: Intake, IV Amount 50 460 120 Left Femoral TLC Medial 50 460 120 Oral 420 225 200 Output: Urine 165 175 40 Urethral (Jones) 165 175 40 Other: # Bowel Movements 0 0 - Medications Active Medications: Active Medications Generic Name Dose Route Start Last Admin Trade Name Freq PRN Reason Stop Dose Admin Acetaminophen 650 mg 08/14/16 23:50 08/15/16 00:15 Tylenol 650mg/20.3ml Solution Ud PO 650 mg Q6H PRN Administration temp.100.4&above;mild pain 1-3 Albuterol/Ipratropium 3 ml 08/16/16 14:00 08/19/16 14:08 Duoneb 3 Mg/0.5 Mg (3 Ml) Ud INH Not Given RQ6 [facility] Digoxin 0.25 mg 08/11/16 18:00 08/18/16 17:21 Lanoxin PO 0.25 mg DAILY@1800 [place] Administration Heparin Sodium (Porcine) 5,000 units 08/15/16 22:00 08/19/16 10:12 Heparin SC 5,000 units Q12 [place] Administration Cefepime HCl 1 gm/ Dextrose 50 mls @ 100 mls/hr 08/14/16 12:00 08/19/16 12:12 IVPB 100 mls/hr Q12H [place] Administration Sodium Chloride 1,000 mls @ 60 mls/hr 08/19/16 07:30 08/19/16 08:05 Sodium Chloride 0.9% IV 60 mls/hr .[id number] [place] Administration Lisinopril 5 mg 08/17/16 10:00 08/19/16 10:13 Zestril PO 5 mg DAILY [place] Administration Methylprednisolone 40 mg 08/18/16 10:00 08/19/16 12:13 Solu-Medrol IV 40 mg DAILY [place] Administration Metoprolol Tartrate 25 mg 08/12/16 18:00 08/19/16 10:12 Lopressor PO 25 mg BID [place] Administration Morphine Sulfate 2 mg 08/14/16 15:36 08/19/16 00:23 Morphine IV 2 mg Q4 PRN Administration Pain, severe (8-10) Pantoprazole Sodium 40 mg 08/19/16 10:00 08/19/16 10:12 Protonix Ec Tab PO 40 mg DAILY [place] Administration - Patient Studies Lab Studies: Microbiology Studies 08/14/16 12:45 Blood Culture - Final Blood-Venous NO GROWTH AFTER 5 DAYS Gram Stain - Final 08/14/16 12:15 Blood Culture - Final Blood-Venous NO GROWTH AFTER 5 DAYS Gram Stain - Final TEST NOT PERFORMED Lab Studies 08/19/16 08/19/16 08/19/16 Range/Units 06:29 06:29 06:29 WBC 13.2 H (4.8-10.8) K/uL RBC 3.21 L (3.80-5.20) Mil/uL Hgb 11.6 (11.0-16.0) g/dL Hct 35.9 (34.0-47.0) % MCV 111.9 H (81.0-99.0) fL MCH 36.2 H (27.0-31.0) pg MCHC 32.3 L (33.0-37.0) g/dL RDW 16.7 H (11.5-14.5) % Plt Count 285 (130-400) K/uL MPV 9.7 (7.2-11.7) fL Neut % (Auto) 88.7 H (50.0-75.0) % Lymph % (Auto) 2.7 L (20.0-40.0) % [place] % (Auto) 8.4 (0.0-10.0) % Eos % (Auto) 0.0 (0.0-4.0) % Baso % (Auto) 0.2 (0.0-2.0) % Neut # 11.7 H (1.8-7.0) K/uL Lymph # 0.4 L (1.0-4.3) K/uL [place] # 1.1 H (0.0-0.8) K/uL Eos # 0.0 (0.0-0.7) K/uL Baso # 0.0 (0.0-0.2) K/uL Neutrophils % (Manual) 94 H (50-75) % Lymphocytes % (Manual) 5 L (20-40) % Monocytes % (Manual) 1 (0-10) % Platelet Estimate Normal (NORMAL) Polychromasia Slight Anisocytosis (manual) Slight Macrocytosis (manual) Moderate PT 9.7 (9.7-12.2) SECONDS INR 0.9 APTT 29 (21-34) SECONDS Sodium 136 (132-148) mmol/L Potassium 4.3 (3.6-5.2) mmol/L Chloride 101 (98-107) mmol/L Carbon Dioxide 30 (22-30) mmol/L Anion Gap 10 (10-20) BUN 26 H (7-17) mg/dL Creatinine 0.5 L (0.7-1.2) MG/DL Est GFR ( Amer) > 60 Est GFR (Non-Af Amer) > 60 Random Glucose 103 (65-105) mg/dL Calcium 8.1 L (8.6-10.4) mg/dl Phosphorus 2.5 (2.5-4.5) mg/dL Magnesium 1.9 (1.6-2.3) mg/dL Total Bilirubin 0.4 (0.2-1.3) mg/dL AST 31 (14-36) U/L ALT 47 (9-52) U/L Alkaline Phosphatase 118 (38-126) U/L Total Protein 5.6 L (6.3-8.3) g/dL Albumin 2.7 L (3.5-5.0) g/dL Globulin 2.9 (2.2-3.9) gm/dL Albumin/Globulin Ratio 0.9 L (1.0-2.1) Laboratory Results - last 24 hr 08/19/16 08/19/16 08/19/16 06:29 06:29 06:29 WBC 13.2 H RBC 3.21 L Hgb 11.6 Hct 35.9 MCV 111.9 H MCH 36.2 H MCHC 32.3 L RDW 16.7 H Plt Count 285 MPV 9.7 Neut % (Auto) 88.7 H Lymph % (Auto) 2.7 L [place] % (Auto) 8.4 Eos % (Auto) 0.0 Baso % (Auto) 0.2 Neut # 11.7 H Lymph # 0.4 L [place] # 1.1 H Eos # 0.0 Baso # 0.0 Neutrophils % (Manual) 94 H Lymphocytes % (Manual) 5 L Monocytes % (Manual) 1 Platelet Estimate Normal Polychromasia Slight Anisocytosis (manual) Slight Macrocytosis (manual) Moderate PT 9.7 INR 0.9 APTT 29 Sodium 136 Potassium 4.3 Chloride 101 Carbon Dioxide 30 Anion Gap 10 BUN 26 H Creatinine 0.5 L Est GFR ( Amer) > 60 Est GFR (Non-Af Amer) > 60 Random Glucose 103 Calcium 8.1 L Phosphorus 2.5 Magnesium 1.9 Total Bilirubin 0.4 AST 31 ALT 47 Alkaline Phosphatase 118 Total Protein 5.6 L Albumin 2.7 L Globulin 2.9 Albumin/Globulin Ratio 0.9 L Critical Care Progress Note - Nutrition Nutrition: Nutrition Category Date Time Status Liquid Diet [DIET] Diets 08/17/16 Breakfast Active Attending/Attestation - Attestation I have personally seen and examined this patient.: Yes I have fully participated in the care of the patient.: Yes I have reviewed all pertinent clinical information: Yes Notes (Text): Today: Monday, August 15, 2016 The Patient was seen and examined at the bedside, Medical records reviewed, all clinical/lab/hemodynamic/radiographic data were reviewed and management issues were discussed and formulated, Pain issues, skin care, head of the bed elevation, GI/DVT prophylaxis, glycemic control were addressed. I discussed the plan of care with the resident and agree with the above history and physical and assessment/plans as transcribed in Dr. Grijalva note
--- NOTE | 2016-08-15 07:50 | CP.PCM.PN ---
Subjective - Date & Time of Evaluation Date of Evaluation: 08/15/16 Time of Evaluation: 07:47 - Subjective Subjective: Patient intubated. Less sedated. Objective - Vital Signs/Intake and Output Vital Signs (last 24 hours): Temp Pulse Resp BP Pulse Ox 98.5 F 81 14 115/66 99 08/15/16 04:00 08/15/16 07:00 08/15/16 07:00 08/15/16 06:59 08/15/16 07:00 Intake and Output: 08/15/16 08/15/16 06:59 18:59 Intake Total 1505 115 Output Total 690 30 Balance 815 85 - Medications Medications: Current Medications Acetaminophen (Tylenol 650mg/20.3ml Solution Ud) 650 mg PO Q6H PRN PRN Reason: temp.100.4&above;mild pain 1-3 Last Admin: 08/15/16 00:15 Dose: 650 mg Digoxin (Lanoxin) 0.25 mg PO DAILY@1800 [facility] Last Admin: 08/14/16 17:49 Dose: 0.25 mg Norepinephrine Bitartrate 4 mg (/ Sodium Chloride) 254 mls @ 15.24 mls/hr IV .[id number] PRN; Protocol; 4 MCG/MIN PRN Reason: TITRATE PER MD ORDER Last Titration: 08/14/16 19:30 Dose: 0 mcg/min, 0 mls/hr Cefepime HCl 1 gm/ Dextrose 50 mls @ 100 mls/hr IVPB Q12H [facility] Last Admin: 08/14/16 23:31 Dose: 100 mls/hr Sodium Chloride (Sodium Chloride 0.9%) 1,000 mls @ 75 mls/hr IV .[id number] [facility] Last Admin: 08/15/16 01:29 Dose: 75 mls/hr Magnesium Sulfate/Dextrose (Magnesium Sulfate 1 Gm/100 Ml D5w) 1 gm in 100 mls @ 200 mls/hr IVPB ONCE ONE Stop: 08/15/16 08:15 Lorazepam (Ativan) 1 mg IVP Q3H PRN PRN Reason: Anxiety Last Admin: 08/14/16 03:59 Dose: 1 mg Metoprolol Tartrate (Lopressor) 25 mg PO BID [facility] Last Admin: 08/14/16 17:48 Dose: 25 mg Morphine Sulfate (Morphine) 2 mg IV Q4 PRN PRN Reason: Pain, severe (8-10) Last Admin: 08/15/16 04:20 Dose: 2 mg Pantoprazole Sodium (Protonix Susp) 40 mg GT DAILY [place] Last Admin: 08/14/16 10:06 Dose: 40 mg - Labs Labs: 08/15/16 06:14 08/15/16 06:14 PT 10.8 SECONDS (9.7-12.2) 08/15/16 06:14 INR 1.0 08/15/16 06:14 APTT 32 SECONDS (21-34) 08/15/16 06:14 - Extremities Exam Additional comments: Right thigh soft. No increased swelling. +PT pulse, decub precautions noted. venodynes intact Assessment and Plan (1) Garden grade IV closed subcapital fracture of proximal end of right femur Assessment & Plan: Plan for R THR when patient stabilized VTE proph d/w Dr. Elena, agrees with above Status: Acute (2) Degenerative joint disease of right hip Status: Chronic (3) Closed fracture of greater trochanter of left femur Assessment & Plan: non operative Status: Acute
[2016-08-15 08:18] LABS: ANISOCYTOSIS SLIGHT; BANDS 1 % (0-2); EOSINOPHIL 2 % (0-4); LYMPHOCYTE 3 % (20-40); MONOCYTE 12 % (0-10); NEUTROPHIL 82 % (50-75); PLATELET ESTIMATE NORMAL (NORMAL); TOTAL CELLS COUNTED 100
[2016-08-15 08:19] LABS: LARGE PLATELETS PRESENT
[2016-08-15 09:22] LABS: BASO # 0.1 K/uL (0.0-0.2); BASO % 0.4 % (0.0-2.0); EOS # 0.1 K/uL (0.0-0.7); EOS % 0.8 % (0.0-4.0); LYMPH # 0.4 K/uL (1.0-4.3); LYMPH % 3.2 % (20.0-40.0); MEAN CELL VOLUME 112.1 fL (81.0-99.0); MEAN CORPUSCULAR HEMOGLOBIN 36.2 pg (27.0-31.0); MEAN CORPUSCULAR HGB CONC 32.3 g/dL (33.0-37.0); MEAN PLATELET VOLUME 9.6 fL (7.2-11.7); MONO # 1.4 K/uL (0.0-0.8); MONO % 9.9 % (0.0-10.0); NEUT # 12.2 K/uL (1.8-7.0); NEUT % 85.7 % (50.0-75.0); RBC 3.02 Mil/uL (3.80-5.20); RED CELL DISTRIBUTION WIDTH 17.5 % (11.5-14.5); WHITE BLOOD COUNT 14.2 K/uL (4.8-10.8)
[2016-08-15] MEDS: Pantoprazole 40 mg Susp UD GT SCH (10:03)
--- NOTE | 2016-08-15 10:36 | CP.PCM.PN ---
Subjective - Date & Time of Evaluation Date of Evaluation: 08/15/16 Time of Evaluation: 10:26 - Subjective Subjective: Progress Note for Dr. Peacock Pt seen and examined at bedside. Pt intubated at this time. No acute events overnight. Heart rate elevated overnight, but has normalized this morning. Objective - Vital Signs/Intake and Output Vital Signs (last 24 hours): Temp Pulse Resp BP Pulse Ox 97.7 F 96 H 13 114/62 99 08/15/16 08:00 08/15/16 09:00 08/15/16 09:00 08/15/16 10:03 08/15/16 09:00 Intake and Output: 08/15/16 08/15/16 06:59 18:59 Intake Total 1505 475 Output Total 690 95 Balance 815 380 - Medications Medications: Current Medications Acetaminophen (Tylenol 650mg/20.3ml Solution Ud) 650 mg PO Q6H PRN PRN Reason: temp.100.4&above;mild pain 1-3 Last Admin: 08/15/16 00:15 Dose: 650 mg Digoxin (Lanoxin) 0.25 mg PO DAILY@1800 [facility] Last Admin: 08/14/16 17:49 Dose: 0.25 mg Heparin Sodium (Porcine) (Heparin) 5,000 units SC Q12 [place] Norepinephrine Bitartrate 4 mg (/ Sodium Chloride) 254 mls @ 15.24 mls/hr IV .[id number] PRN; Protocol; 4 MCG/MIN PRN Reason: TITRATE PER MD ORDER Last Titration: 08/14/16 19:30 Dose: 0 mcg/min, 0 mls/hr Cefepime HCl 1 gm/ Dextrose 50 mls @ 100 mls/hr IVPB Q12H [facility] Last Admin: 08/14/16 23:31 Dose: 100 mls/hr Sodium Chloride (Sodium Chloride 0.9%) 1,000 mls @ 75 mls/hr IV .[id number] [facility] Last Admin: 08/15/16 01:29 Dose: 75 mls/hr Metoprolol Tartrate (Lopressor) 25 mg PO BID [facility] Last Admin: 08/15/16 10:03 Dose: 25 mg Morphine Sulfate (Morphine) 2 mg IV Q4 PRN PRN Reason: Pain, severe (8-10) Last Admin: 08/15/16 04:20 Dose: 2 mg Pantoprazole Sodium (Protonix Susp) 40 mg GT DAILY [place] Last Admin: 08/15/16 10:03 Dose: 40 mg - Labs Labs: 08/15/16 09:13 08/15/16 06:14 PT 10.8 SECONDS (9.7-12.2) 08/15/16 06:14 INR 1.0 08/15/16 06:14 APTT 32 SECONDS (21-34) 08/15/16 06:14 - Constitutional Appears: Well, No Acute Distress - ENT Exam Additional comments: ET tube in place - Respiratory Exam Respiratory Exam: Clear to Ausculation Bilateral, NORMAL BREATHING PATTERN - Cardiovascular Exam Cardiovascular Exam: RRR, +S1, +S2 - GI/Abdominal Exam GI & Abdominal Exam: Soft, Normal Bowel Sounds. absent: Tenderness - Extremities Exam Extremities Exam: Normal Inspection. 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
[2016-08-15] MEDS ORDERED: Iodixanol 320 MG/ML 100 ML BOTTLE IV ONE (12:09)
--- NOTE | 2016-08-15 12:26 | CARD ---
APPROVED REPORT EXAM: Two-dimensional and M-mode echocardiogram with Doppler and color Doppler. Other Information Quality : FairRhythm : NSR INDICATION Abnormal EKG/Arrhythmia S/P CARDIAC ARREST,S/P FALL,REPEAT ECHO RISK FACTORS Hypertension Mitral Valve MV E Revsejbp42.8cm/sE/A ratio0.0 TDI E/Lateral E'0.0E/Medial E'0.0 Tricuspid Valve TR Peak Fnrrdhlr034ra/sTR Peak Gr.[id number] <Conclusion> tds. m mode is not available. la,lv & ra rv size appears normal. moderate to severe lv systolic dysfunction. rv function is probably normal. mitral,tv,aortic valve are probably normal for the age. mild mr,tr with calculated pulmonary systolic pressures of 54 mm of hgf,c/w moderate pulmonary hypertension. ivc is normal size. minimal anterior echo free space,probably fat.
--- NOTE | 2016-08-15 13:39 | CT ---
PROCEDURE: CT HEAD WITHOUT CONTRAST. HISTORY: s/p arrest COMPARISON: None available. TECHNIQUE: Axial computed tomography images were obtained through the head/brain without intravenous contrast. Radiation dose: Total exam DLP = 1104.57 mGy-cm. This CT exam was performed using one or more of the following dose reduction techniques: Automated exposure control, adjustment of the mA and/or kV according to patient size, and/or use of iterative reconstruction technique. FINDINGS: HEMORRHAGE: No intracranial hemorrhage. BRAIN: Examination is degraded by patient motion. There are moderate chronic microangiopathic changes. There is no mass, mass effect or abnormal extra-axial fluid collection. There are coarse atherosclerotic calcifications in the cavernous carotid arteries. VENTRICLES: There is mild age-related global parenchymal volume loss and proportionate enlargement of the ventricles and cortical sulci. CALVARIUM: The skull base and calvarium are normal. PARANASAL SINUSES: Predominantly clear. MASTOID AIR CELLS: Predominantly clear. OTHER FINDINGS: None. IMPRESSION: No acute intracranial abnormality. Moderate chronic microangiopathic changes and mild age-related global parenchymal volume loss.
--- NOTE | 2016-08-15 14:00 | RAD ---
HISTORY: ETT with tip at evaluation. COMPARISON: No prior. FINDINGS: LUNGS: The ETT tip lies approximately 5.17 cm above priya. . In situ NGT is present, the tip of which has not been included on this film though distal aspect does lie well below EG junction. Moderately large bilateral effusions and bibasilar atelectasis. PLEURA: As above. . No pneumothorax apparent. CARDIOVASCULAR: Cardiomegaly OSSEOUS STRUCTURES: No significant abnormalities. VISUALIZED UPPER ABDOMEN: Normal. OTHER FINDINGS: None. IMPRESSION: ETT and NGT as above. Cardiomegaly. Moderately large bilateral effusions and bibasilar atelectasis.
[2016-08-15] MEDS: Digoxin 250 mcg (0.25 mg) Tab PO SCH (18:07)
--- NOTE | 2016-08-15 20:33 | CP.PCM.PN ---
Subjective - Date & Time of Evaluation Date of Evaluation: 08/15/16 Time of Evaluation: 20:30 - Subjective Subjective: Patient awake, responsive, on respirator, off vasopressor, with better urine output. H: 88 irregular. Afebrile BP: 145/80. On Fio2: 60 % and PEEP 5. CXR today: bilateral pleural effusion. Objective - Vital Signs/Intake and Output Vital Signs (last 24 hours): Temp Pulse Resp BP Pulse Ox 97.6 F 84 17 142/82 100 08/15/16 16:00 08/15/16 19:00 08/15/16 19:00 08/15/16 18:59 08/15/16 19:00 Intake and Output: 08/15/16 08/16/16 18:59 06:59 Intake Total 1730 115 Output Total 350 30 Balance 1380 85 - Medications Medications: Current Medications Acetaminophen (Tylenol 650mg/20.3ml Solution Ud) 650 mg PO Q6H PRN PRN Reason: temp.100.4&above;mild pain 1-3 Last Admin: 08/15/16 00:15 Dose: 650 mg Digoxin (Lanoxin) 0.25 mg PO DAILY@1800 [facility] Last Admin: 08/15/16 18:07 Dose: 0.25 mg Heparin Sodium (Porcine) (Heparin) 5,000 units SC Q12 [place] Norepinephrine Bitartrate 4 mg (/ Sodium Chloride) 254 mls @ 15.24 mls/hr IV .[id number] PRN; Protocol; 4 MCG/MIN PRN Reason: TITRATE PER MD ORDER Last Titration: 08/14/16 19:30 Dose: 0 mcg/min, 0 mls/hr Cefepime HCl 1 gm/ Dextrose 50 mls @ 100 mls/hr IVPB Q12H [facility] Last Admin: 08/15/16 11:57 Dose: 100 mls/hr Sodium Chloride (Sodium Chloride 0.9%) 1,000 mls @ 75 mls/hr IV .[id number] [facility] Last Admin: 08/15/16 18:23 Dose: 75 mls/hr Metoprolol Tartrate (Lopressor) 25 mg PO BID [facility] Last Admin: 08/15/16 18:07 Dose: 25 mg Morphine Sulfate (Morphine) 2 mg IV Q4 PRN PRN Reason: Pain, severe (8-10) Last Admin: 08/15/16 04:20 Dose: 2 mg Pantoprazole Sodium (Protonix Susp) 40 mg GT DAILY [place] Last Admin: 08/15/16 10:03 Dose: 40 mg - Labs Labs: 08/15/16 09:13 08/15/16 06:14 PT 10.8 SECONDS (9.7-12.2) 08/15/16 06:14 INR 1.0 08/15/16 06:14 APTT 32 SECONDS (21-34) 08/15/16 06:14 - Constitutional Appears: Chronically Ill - Head Exam Head Exam: NORMAL INSPECTION - Eye Exam Eye Exam: Normal appearance - ENT Exam ENT Exam: Normal Exam - Neck Exam Neck Exam: Normal Inspection - Respiratory Exam Additional comments: Rhonchi bilaterally. - Cardiovascular Exam Cardiovascular Exam: Irregular Rhythm - GI/Abdominal Exam GI & Abdominal Exam: Soft, Normal Bowel Sounds - Rectal Exam Rectal Exam: Deferred - Extremities Exam Extremities Exam: Normal Inspection - Back Exam Back Exam: NORMAL INSPECTION - Neurological Exam Neurological Exam: Awake - Psychiatric Exam Psychiatric exam: Agitated - Skin Additional comments: Abrasions seen on her arms, legs, knees. Tender both hips. External rotation of the right leg. Assessment and Plan (1) Closed fracture of greater trochanter of left femur Status: Acute (2) Dehydration Status: Resolved (3) Sepsis Status: Acute (4) Fall Status: Acute (5) Arrhythmia Status: Acute (6) Contusion of head Status: Acute (7) Garden grade IV closed subcapital fracture of proximal end of right femur Status: Acute (8) CHF exacerbation Status: Acute (9) Acute respiratory failure Assessment & Plan: To continue IV antibiotic, ventilation support and pulmonary toilet. Start to wean off respirator in AM ? Status: Acute
[2016-08-16 04:27] LABS: ARTERIAL BLOOD GAS HCO3 29.5 mmol/L (21-28); ARTERIAL BLOOD GAS HEMOGLOBIN 8.7 g/dL (11.7-17.4); ARTERIAL BLOOD GAS O2 SAT 99.3 % (95-98); ARTERIAL BLOOD GAS PCO2 40 mm/Hg (35-45); ARTERIAL BLOOD GAS PH 7.48 (7.35-7.45); ARTERIAL BLOOD GAS PO2 84 mm/Hg (80-100)
[2016-08-16 06:38] LABS: BASO % 0.3 % (0.0-2.0); EOS # 0.1 K/uL (0.0-0.7); EOS % 0.5 % (0.0-4.0); HEMOGLOBIN 10.4 g/dL (11.0-16.0); LYMPH # 0.3 K/uL (1.0-4.3); LYMPH % 2.5 % (20.0-40.0); MEAN CELL VOLUME 111.5 fL (81.0-99.0); MEAN CORPUSCULAR HEMOGLOBIN 36.4 pg (27.0-31.0); MEAN CORPUSCULAR HGB CONC 32.7 g/dL (33.0-37.0); MEAN PLATELET VOLUME 9.8 fL (7.2-11.7); MONO # 1.1 K/uL (0.0-0.8); MONO % 8.2 % (0.0-10.0); NEUT # 12.1 K/uL (1.8-7.0); NEUT % 88.5 % (50.0-75.0); PLATELET COUNT 224 K/uL (130-400); RBC 2.87 Mil/uL (3.80-5.20); RED CELL DISTRIBUTION WIDTH 16.6 % (11.5-14.5); WHITE BLOOD COUNT 13.7 K/uL (4.8-10.8)
[2016-08-16 06:45] LABS: ALBUMIN 2.2 g/dL (3.5-5.0)
[2016-08-16 06:47] LABS: GFR AFRICAN-AMERICAN > 60; GFR NON-AFRICAN AMERICAN > 60
[2016-08-16 06:48] LABS: ALB/GLOB RATIO 0.8 (1.0-2.1); ALT/SGPT 41 U/L (9-52); AST/SGOT 22 U/L (14-36); BLOOD UREA NITROGEN 20 mg/dL (7-17); CALCIUM 7.7 mg/dl (8.6-10.4); MAGNESIUM 1.9 mg/dL (1.6-2.3)
--- NOTE | 2016-08-16 07:35 | CP.PCM.PN ---
Subjective - Date & Time of Evaluation Date of Evaluation: 08/16/16 Time of Evaluation: 07:25 Objective - Vital Signs/Intake and Output Vital Signs (last 24 hours): Temp Pulse Resp BP Pulse Ox 97.6 F 84 16 125/65 100 08/16/16 04:00 08/16/16 06:02 08/16/16 06:02 08/16/16 06:02 08/16/16 06:02 Intake and Output: 08/16/16 08/16/16 06:59 18:59 Intake Total 1380 115 Output Total 574 42 Balance 806 73 - Medications Medications: Current Medications Acetaminophen (Tylenol 650mg/20.3ml Solution Ud) 650 mg PO Q6H PRN PRN Reason: temp.100.4&above;mild pain 1-3 Last Admin: 08/15/16 00:15 Dose: 650 mg Digoxin (Lanoxin) 0.25 mg PO DAILY@1800 [facility] Last Admin: 08/15/16 18:07 Dose: 0.25 mg Heparin Sodium (Porcine) (Heparin) 5,000 units SC Q12 [facility] Last Admin: 08/15/16 21:40 Dose: 5,000 units Norepinephrine Bitartrate 4 mg (/ Sodium Chloride) 254 mls @ 15.24 mls/hr IV .[id number] PRN; Protocol; 4 MCG/MIN PRN Reason: TITRATE PER MD ORDER Last Titration: 08/14/16 19:30 Dose: 0 mcg/min, 0 mls/hr Cefepime HCl 1 gm/ Dextrose 50 mls @ 100 mls/hr IVPB Q12H [facility] Last Admin: 08/15/16 23:00 Dose: 100 mls/hr Sodium Chloride (Sodium Chloride 0.9%) 1,000 mls @ 75 mls/hr IV .[id number] [facility] Last Admin: 08/15/16 18:23 Dose: 75 mls/hr Metoprolol Tartrate (Lopressor) 25 mg PO BID [facility] Last Admin: 08/15/16 18:07 Dose: 25 mg Morphine Sulfate (Morphine) 2 mg IV Q4 PRN PRN Reason: Pain, severe (8-10) Last Admin: 08/15/16 04:20 Dose: 2 mg Pantoprazole Sodium (Protonix Susp) 40 mg GT DAILY [facility] Last Admin: 08/15/16 10:03 Dose: 40 mg - Labs Labs: 08/16/16 06:26 08/16/16 06:24 PT 10.8 SECONDS (9.7-12.2) 08/15/16 06:14 INR 1.0 08/15/16 06:14 APTT 32 SECONDS (21-34) 08/15/16 06:14
[2016-08-16 08:53] LABS: BANDS 2 % (0-2); LYMPHOCYTE 3 % (20-40); MONOCYTE 8 % (0-10); NEUTROPHIL 87 % (50-75); PLATELET ESTIMATE NORMAL (NORMAL); TOTAL CELLS COUNTED 100
[2016-08-16 08:54] LABS: ANISOCYTOSIS SLIGHT; GIANT PLATELETS PRESENT; HYPOCHROMIC SLIGHT; LARGE PLATELETS PRESENT; POLYCHROMIC SLIGHT; TOXIC GRANULATION PRESENT
--- NOTE | 2016-08-16 08:58 | RAD ---
Chest x-ray single frontal view History: Endotracheal tube evaluation. Comparison: 08/15/2016 Findings: Endotracheal tube extending into the mid thoracic trachea. NG tube extending into the stomach. Prominent diffuse increased interstitial lung markings throughout both lungs bilaterally. Additional patchy consolidative changes seen within the mid to lower lung zones with associated probable bilateral pleural effusions. Right basilar nipple markers. Prominent biapical pleural thickening with upper lobe granulomatous changes and scarring. Mild cardiomegaly. Degenerative changes in the spine and shoulders. Impression: No significant interval change.
[2016-08-16] MEDS: Pantoprazole 40 mg Susp UD GT SCH (10:10)
[2016-08-16] MEDS: Potassium & Sodium Phosphate PO SCH ×3 (10:34→17:53)
--- NOTE | 2016-08-16 12:55 | CP.CCUPN ---
CCU Subjective - Physician Review Events Since Last Encounter (Free Text): 08/16/16 12:51 Patient seen and examined in the intensive care unit. Case discussed with house staff in the morning rounds. Patient much more awake and responsive Tolerating CPAP since morning Afebrile CCU Objective - Vital Signs / Intake & Output Vital Signs (Last 4 hours): Vital Signs Pulse Resp BP Pulse Ox 08/16/16 10:09 137/70 08/16/16 09:02 92 H 18 121/71 99 08/16/16 09:00 81 13 100 Intake and Output (Last 8hrs): Intake & Output 08/15/16 08/16/16 08/16/16 22:59 06:59 14:59 Intake Total 1010 920 345 Output Total 360 329 122 Balance 650 591 223 Intake: Intake, IV Amount 600 600 225 Left Femoral TLC Proximal 600 600 225 Oral 90 Tube Feeding 320 320 120 Output: Urine 360 329 122 Urethral (Martinez) 360 329 122 Other: # Bowel Movements 0 - Physical Exam Head: Positive for: Normocephalic, Ecchymosis, Other (Contusions over left side of face, ET Tube in place). Negative for: Atraumatic Pupils: Positive for: PERRL Extroacular Muscles: Positive for: EOMI Conjunctiva: Positive for: Normal Mouth: Positive for: Moist Mucous Membranes Neck: Positive for: Normal Range of Motion. Negative for: JVD, Bruit Respiratory/Chest: Positive for: Good Air Exchange, Decreased Breath Sounds ( bibasilar R > L), Rales (bibasilar ). Negative for: Clear to Auscultation, Respiratory Distress, Accessory Muscle Use, Wheezes, Retracting, Rhonchi Cardiovascular: Positive for: Regular Rate and Rhythm, Normal S1, S2, Peripheal Pulses Present. Negative for: Murmurs Abdomen: Positive for: Normal Bowel Sounds. Negative for: Tenderness, Distention, Peritoneal Signs, Rebound, Guarding Upper Extremity: Positive for: Normal Inspection, NORMAL PULSES, Neurovascularly Intact Lower Extremity: Positive for: NORMAL PULSES, Deformity (right leg shotened and externally rotated ), Neurovascularly Intact, Other (tenderness over b/l hips to palpation). Negative for: Normal Inspection, Normal ROM Neurological: Positive for: CN II-XII Intact, Speech Normal, Motor Func Grossly Intact Skin: Positive for: Warm, Dry, Normal Color. Negative for: Rashes Psychiatric: Positive for: Alert, Oriented x 3 - Medications Active Medications: Active Medications Generic Name Dose Route Start Last Admin Trade Name Freq PRN Reason Stop Dose Admin Acetaminophen 650 mg 08/14/16 23:50 08/15/16 00:15 Tylenol 650mg/20.3ml Solution Ud PO 650 mg Q6H PRN Administration temp.100.4&above;mild pain 1-3 Digoxin 0.25 mg 08/11/16 18:00 08/15/16 18:07 Lanoxin PO 0.25 mg DAILY@1800 [place] Administration Heparin Sodium (Porcine) 5,000 units 08/15/16 22:00 08/16/16 10:09 Heparin SC 5,000 units Q12 [place] Administration Cefepime HCl 1 gm/ Dextrose 50 mls @ 100 mls/hr 08/14/16 12:00 08/16/16 11:16 IVPB 100 mls/hr Q12H [place] Administration Metoprolol Tartrate 25 mg 08/12/16 18:00 08/16/16 10:09 Lopressor PO 25 mg BID [place] Administration Morphine Sulfate 2 mg 08/14/16 15:36 08/15/16 04:20 Morphine IV 2 mg Q4 PRN Administration Pain, severe (8-10) Pantoprazole Sodium 40 mg 08/14/16 10:00 08/16/16 10:10 Protonix Susp GT 40 mg DAILY [place] Administration Potassium Phos/Sodium Phos 1 pkt 08/16/16 10:00 08/16/16 10:34 Neutra-Phos PO 08/18/16 00:00 1 pkt TID [place] Administration - Patient Studies Lab Studies: Microbiology Studies 08/14/16 01:50 Gram Stain - Final Trachasp Sputum Culture - Final Yeast Species 08/14/16 14:50 Urine Culture - Final Urine,Martinez Yeast Species 08/14/16 12:45 Blood Culture - Preliminary Blood-Venous NO GROWTH AFTER 24 HOURS 08/14/16 12:15 Blood Culture - Preliminary Blood-Venous NO GROWTH AFTER 24 HOURS Lab Studies 08/16/16 08/16/16 08/16/16 Range/Units 06:26 06:24 04:20 WBC 13.7 H (4.8-10.8) K/uL RBC 2.87 L (3.80-5.20) Mil/uL Hgb 10.4 L (11.0-16.0) g/dL Hct 32.0 L (34.0-47.0) % MCV 111.5 H (81.0-99.0) fL MCH 36.4 H (27.0-31.0) pg MCHC 32.7 L (33.0-37.0) g/dL RDW 16.6 H (11.5-14.5) % Plt Count 224 (130-400) K/uL MPV 9.8 (7.2-11.7) fL Neut % (Auto) 88.5 H (50.0-75.0) % Lymph % (Auto) 2.5 L (20.0-40.0) % [place] % (Auto) 8.2 (0.0-10.0) % Eos % (Auto) 0.5 (0.0-4.0) % Baso % (Auto) 0.3 (0.0-2.0) % Neut # 12.1 H (1.8-7.0) K/uL Lymph # 0.3 L (1.0-4.3) K/uL [place] # 1.1 H (0.0-0.8) K/uL Eos # 0.1 (0.0-0.7) K/uL Baso # 0.0 (0.0-0.2) K/uL Neutrophils % (Manual) 87 H (50-75) % Band Neutrophils % 2 (0-2) % Lymphocytes % (Manual) 3 L (20-40) % Monocytes % (Manual) 8 (0-10) % Toxic Granulation Present Platelet Estimate Normal (NORMAL) Large Platelets Present Giant Platelets Present Polychromasia Slight Hypochromasia (manual) Slight Anisocytosis (manual) Slight Macrocytosis (manual) Moderate Puncture Site Lb pCO2 40 (35-45) mm/Hg pO2 84 (80-100) mm/Hg HCO3 29.5 H (21-28) mmol/L ABG pH 7.48 H (7.35-7.45) ABG Total CO2 31.0 H (22-28) mmol/L ABG O2 Saturation 99.3 H (95-98) % ABG Base Excess 5.8 H (-2.0-3.0) mmol/L ABG Hemoglobin 8.7 L (11.7-17.4) g/dL ABG Carboxyhemoglobin 2.1 H (0.5-1.5) % POC ABG HHb (Measured) 0.7 (0.0-5.0) % ABG Methemoglobin 1.1 (0.0-3.0) % Seng Test Na A-a O2 Difference 294.0 mm/Hg Respiratory Index 3.5 Hgb O2 Saturation 96.1 (95.0-98.0) % Mechanical Rate 12 FiO2 60.0 % Tidal Volume 400 PEEP 5 Sodium 138 (132-148) mmol/L Potassium 3.9 (3.6-5.2) mmol/L Chloride 106 (98-107) mmol/L Carbon Dioxide 28 (22-30) mmol/L Anion Gap 7 L (10-20) BUN 20 H (7-17) mg/dL Creatinine 0.5 L (0.7-1.2) MG/DL Est GFR ( Amer) > 60 Est GFR (Non-Af Amer) > 60 Random Glucose 103 (65-105) mg/dL Calcium 7.7 L (8.6-10.4) mg/dl Phosphorus 2.1 L (2.5-4.5) mg/dL Magnesium 1.9 (1.6-2.3) mg/dL Total Bilirubin 0.5 (0.2-1.3) mg/dL AST 22 (14-36) U/L ALT 41 (9-52) U/L Alkaline Phosphatase 117 (38-126) U/L Total Protein 5.0 L (6.3-8.3) g/dL Albumin 2.2 L (3.5-5.0) g/dL Globulin 2.8 (2.2-3.9) gm/dL Albumin/Globulin Ratio 0.8 L (1.0-2.1) Laboratory Results - last 24 hr 08/16/16 08/16/16 08/16/16 04:20 06:24 06:26 WBC 13.7 H RBC 2.87 L Hgb 10.4 L Hct 32.0 L MCV 111.5 H MCH 36.4 H MCHC 32.7 L RDW 16.6 H Plt Count 224 MPV 9.8 Neut % (Auto) 88.5 H Lymph % (Auto) 2.5 L [place] % (Auto) 8.2 Eos % (Auto) 0.5 Baso % (Auto) 0.3 Neut # 12.1 H Lymph # 0.3 L [place] # 1.1 H Eos # 0.1 Baso # 0.0 Neutrophils % (Manual) 87 H Band Neutrophils % 2 Lymphocytes % (Manual) 3 L Monocytes % (Manual) 8 Toxic Granulation Present Platelet Estimate Normal Large Platelets Present Giant Platelets Present Polychromasia Slight Hypochromasia (manual) Slight Anisocytosis (manual) Slight Macrocytosis (manual) Moderate Puncture Site Lb pCO2 40 pO2 84 HCO3 29.5 H ABG pH 7.48 H ABG Total CO2 31.0 H ABG O2 Saturation 99.3 H ABG Base Excess 5.8 H ABG Hemoglobin 8.7 L ABG Carboxyhemoglobin 2.1 H POC ABG HHb (Measured) 0.7 ABG Methemoglobin 1.1 Seng Test Na A-a O2 Difference 294.0 Respiratory Index 3.5 Hgb O2 Saturation 96.1 Mechanical Rate 12 FiO2 60.0 Tidal Volume 400 PEEP 5 Sodium 138 Potassium 3.9 Chloride 106 Carbon Dioxide 28 Anion Gap 7 L BUN 20 H Creatinine 0.5 L Est GFR ( Amer) > 60 Est GFR (Non-Af Amer) > 60 Random Glucose 103 Calcium 7.7 L Phosphorus 2.1 L Magnesium 1.9 Total Bilirubin 0.5 AST 22 ALT 41 Alkaline Phosphatase 117 Total Protein 5.0 L Albumin 2.2 L Globulin 2.8 Albumin/Globulin Ratio 0.8 L Review of Systems - Review of Systems Systems not reviewed;Unavailable: Intubated Critical Care Progress Note - Ventilator Checklist Head of Bed 30 Degrees: Yes Daily Sedation Vacation: Yes PUD Prophalyxis: Yes DVT Prophylaxis: Yes - Vent Settings MODE:: CPAP - Nutrition Nutrition: Nutrition Category Date Time Status NPO Diet [DIET] Diets 08/14/16 Breakfast Active Assessment/Plan (1) Acute respiratory failure Assessment and plan: Patient tolerating CPAP since morning CAT scan of the chest showed no pulmonary embolism but consistent with bilateral pleural effusion and severe emphysema Plan to extubate nebulizer treatment Start IV steroids Continue antibiotics Current Visit: Yes Status: Acute (2) CHF exacerbation Current Visit: Yes Status: Acute (3) Closed fracture of greater trochanter of left femur Current Visit: Yes Status: Acute (4) Garden grade IV closed subcapital fracture of proximal end of right femur Current Visit: Yes Status: Acute
[2016-08-16] MEDS: Albuterol-Ipratrop 3 mg / 0.5 (3 ml) UD INH SCH ×2 (13:20→20:18)
[2016-08-16] MEDS: Digoxin 250 mcg (0.25 mg) Tab PO SCH (17:52)
--- NOTE | 2016-08-16 23:23 | CP.PCM.PN ---
Subjective - Date & Time of Evaluation Date of Evaluation: 08/16/16 Time of Evaluation: 21:00 - Subjective Subjective: Patient extubated. Alert, oriented, in no distrress. BP: 145/80 HR: 90 regular. Afebrile. Objective - Vital Signs/Intake and Output Vital Signs (last 24 hours): Temp Pulse Resp BP Pulse Ox 99 F 90 19 152/83 H 97 08/16/16 16:00 08/16/16 21:02 08/16/16 21:02 08/16/16 21:02 08/16/16 21:02 Intake and Output: 08/16/16 08/17/16 18:59 06:59 Intake Total 655 Output Total 492 35 Balance 163 -35 - Medications Medications: Current Medications Acetaminophen (Tylenol 650mg/20.3ml Solution Ud) 650 mg PO Q6H PRN PRN Reason: temp.100.4&above;mild pain 1-3 Last Admin: 08/15/16 00:15 Dose: 650 mg Albuterol/Ipratropium (Duoneb 3 Mg/0.5 Mg (3 Ml) Ud) 3 ml INH RQ6 [facility] Last Admin: 08/16/16 20:18 Dose: 3 ml Digoxin (Lanoxin) 0.25 mg PO DAILY@1800 [facility] Last Admin: 08/16/16 17:52 Dose: 0.25 mg Heparin Sodium (Porcine) (Heparin) 5,000 units SC Q12 [facility] Last Admin: 08/16/16 10:09 Dose: 5,000 units Cefepime HCl 1 gm/ Dextrose 50 mls @ 100 mls/hr IVPB Q12H [facility] Last Admin: 08/16/16 11:16 Dose: 100 mls/hr Lisinopril (Zestril) 5 mg PO DAILY [facility] Methylprednisolone (Solu-Medrol) 40 mg IV Q12 [facility] Last Admin: 08/16/16 13:54 Dose: 40 mg Metoprolol Tartrate (Lopressor) 25 mg PO BID [facility] Last Admin: 08/16/16 17:53 Dose: 25 mg Morphine Sulfate (Morphine) 2 mg IV Q4 PRN PRN Reason: Pain, severe (8-10) Last Admin: 08/15/16 04:20 Dose: 2 mg Pantoprazole Sodium (Protonix Susp) 40 mg GT DAILY [facility] Last Admin: 08/16/16 10:10 Dose: 40 mg Potassium Phos/Sodium Phos (Neutra-Phos) 1 pkt PO TID [place] Stop: 08/18/16 00:00 Last Admin: 08/16/16 17:53 Dose: 1 pkt - Labs Labs: 08/16/16 06:26 08/16/16 06:24 PT 10.8 SECONDS (9.7-12.2) 08/15/16 06:14 INR 1.0 08/15/16 06:14 APTT 32 SECONDS (21-34) 08/15/16 06:14 - Constitutional Appears: In Acute Distress, Chronically Ill - Head Exam Head Exam: NORMAL INSPECTION - Eye Exam Eye Exam: Normal appearance - ENT Exam ENT Exam: Normal Exam - Neck Exam Neck Exam: Normal Inspection - Respiratory Exam Additional comments: Rhonchi bilaterally. - Cardiovascular Exam Cardiovascular Exam: REGULAR RHYTHM - GI/Abdominal Exam GI & Abdominal Exam: Soft, Normal Bowel Sounds - Rectal Exam Rectal Exam: Deferred - Extremities Exam Extremities Exam: Pedal Edema - Back Exam Back Exam: NORMAL INSPECTION - Neurological Exam Neurological Exam: Alert, Awake, Oriented x3 - Psychiatric Exam Psychiatric exam: Anxious - Skin Skin Exam: Dry, Intact, Warm Assessment and Plan (1) Closed fracture of greater trochanter of left femur Status: Acute (2) Dehydration Status: Resolved (3) Sepsis Status: Acute (4) Fall Status: Acute (5) Arrhythmia Status: Acute (6) Contusion of head Status: Acute (7) Garden grade IV closed subcapital fracture of proximal end of right femur Status: Acute (8) CHF exacerbation Status: Acute (9) Acute respiratory failure Status: Acute
[2016-08-17] MEDS: Albuterol-Ipratrop 3 mg / 0.5 (3 ml) UD INH SCH ×4 (01:10→19:34)
[2016-08-17 06:43] LABS: HEMOGLOBIN 11.2 g/dL (11.0-16.0); LYMPH # 0.1 K/uL (1.0-4.3); MEAN CORPUSCULAR HEMOGLOBIN 36.6 pg (27.0-31.0); MEAN PLATELET VOLUME 9.7 fL (7.2-11.7); MONO # 0.1 K/uL (0.0-0.8); MONO % 1.1 % (0.0-10.0); NEUT # 9.7 K/uL (1.8-7.0); NEUT % 97.9 % (50.0-75.0); NRBC % 0.1 % (0.0-2.0); PLATELET COUNT 263 K/uL (130-400); RBC 3.06 Mil/uL (3.80-5.20); RED CELL DISTRIBUTION WIDTH 16.8 % (11.5-14.5)
[2016-08-17 06:49] LABS: ALBUMIN 2.9 g/dL (3.5-5.0)
[2016-08-17 06:51] LABS: GFR AFRICAN-AMERICAN > 60; GFR NON-AFRICAN AMERICAN > 60
[2016-08-17 06:52] LABS: ALB/GLOB RATIO 0.9 (1.0-2.1); ALT/SGPT 42 U/L (9-52); AST/SGOT 32 U/L (14-36); BLOOD UREA NITROGEN 20 mg/dL (7-17); CALCIUM 8.6 mg/dl (8.6-10.4); MAGNESIUM 2.1 mg/dL (1.6-2.3)
--- NOTE | 2016-08-17 06:52 | CP.PCM.PN ---
Subjective - Date & Time of Evaluation Date of Evaluation: 08/17/16 Time of Evaluation: 06:45 Objective - Vital Signs/Intake and Output Vital Signs (last 24 hours): Temp Pulse Resp BP Pulse Ox 97.7 F 77 16 129/64 97 08/17/16 04:00 08/17/16 06:05 08/17/16 06:05 08/17/16 06:05 08/17/16 06:05 Intake and Output: 08/16/16 08/17/16 18:59 06:59 Intake Total 655 50 Output Total 492 365 Balance 163 -315 - Medications Medications: Current Medications Acetaminophen (Tylenol 650mg/20.3ml Solution Ud) 650 mg PO Q6H PRN PRN Reason: temp.100.4&above;mild pain 1-3 Last Admin: 08/15/16 00:15 Dose: 650 mg Albuterol/Ipratropium (Duoneb 3 Mg/0.5 Mg (3 Ml) Ud) 3 ml INH RQ6 [facility] Last Admin: 08/17/16 01:10 Dose: 3 ml Digoxin (Lanoxin) 0.25 mg PO DAILY@1800 [facility] Last Admin: 08/16/16 17:52 Dose: 0.25 mg Heparin Sodium (Porcine) (Heparin) 5,000 units SC Q12 [facility] Last Admin: 08/16/16 22:00 Dose: 5,000 units Cefepime HCl 1 gm/ Dextrose 50 mls @ 100 mls/hr IVPB Q12H [facility] Last Admin: 08/16/16 23:00 Dose: 100 mls/hr Lisinopril (Zestril) 5 mg PO DAILY [facility] Methylprednisolone (Solu-Medrol) 40 mg IV Q12 [facility] Last Admin: 08/16/16 22:00 Dose: 40 mg Metoprolol Tartrate (Lopressor) 25 mg PO BID [facility] Last Admin: 08/16/16 17:53 Dose: 25 mg Morphine Sulfate (Morphine) 2 mg IV Q4 PRN PRN Reason: Pain, severe (8-10) Last Admin: 08/15/16 04:20 Dose: 2 mg Pantoprazole Sodium (Protonix Susp) 40 mg GT DAILY [facility] Last Admin: 08/16/16 10:10 Dose: 40 mg Potassium Phos/Sodium Phos (Neutra-Phos) 1 pkt PO TID [facility] Stop: 08/18/16 00:00 Last Admin: 08/16/16 17:53 Dose: 1 pkt - Labs Labs: 08/16/16 06:26 08/17/16 06:34 PT 10.8 SECONDS (9.7-12.2) 08/15/16 06:14 INR 1.0 08/15/16 06:14 APTT 32 SECONDS (21-34) 08/15/16 06:14
[2016-08-17 09:16] LABS: ANISOCYTOSIS SLIGHT; BANDS 2 % (0-2); LYMPHOCYTE 1 % (20-40); MONOCYTE 1 % (0-10); NEUTROPHIL 96 % (50-75); PLATELET ESTIMATE NORMAL (NORMAL); TOTAL CELLS COUNTED 100
[2016-08-17 09:17] LABS: BURR CELLS SLIGHT; HYPOCHROMIC SLIGHT; LARGE PLATELETS PRESENT; POIKILOCYTOSIS SLIGHT; POLYCHROMIC SLIGHT; TOXIC GRANULATION PRESENT
[2016-08-17 09:19] LABS: SCHISTOCYTES SLIGHT
[2016-08-17] MEDS: Potassium & Sodium Phosphate PO SCH ×3 (09:23→17:42)
[2016-08-17] MEDS: Pantoprazole 40 mg Susp UD GT SCH (09:23)
--- NOTE | 2016-08-17 11:23 | CP.CCUPN ---
CCU Subjective - Physician Review Events Since Last Encounter (Free Text): 08/17/16 11:21 Patient seen and examined in the intensive care unit. Extubated yesterday and doing fine in no respiratory distress Awake and responsive and is asking for food Denies cough, denies fever or chills, denies chest pain CCU Objective - Vital Signs / Intake & Output Vital Signs (Last 4 hours): Vital Signs Temp Pulse Resp BP Pulse Ox 08/17/16 10:02 109 H 12 132/62 94 L 08/17/16 10:00 101 H 15 99 08/17/16 09:30 130/78 08/17/16 09:04 108 H 20 130/78 92 L 08/17/16 09:00 98 H 20 08/17/16 08:02 95 H 18 125/69 99 08/17/16 08:00 97.7 F 98 H 15 95 Intake and Output (Last 8hrs): Intake & Output 08/16/16 08/17/16 08/17/16 22:59 06:59 14:59 Intake Total 90 50 480 Output Total 280 240 115 Balance -190 -190 365 Intake: Intake, IV Amount 50 Left Femoral TLC Medial 50 Oral 90 480 Output: Urine 280 240 115 Urethral (Martinez) 280 240 115 Other: # Bowel Movements 1 - Physical Exam Head: Positive for: Normocephalic, Ecchymosis, Other (Contusions over left side of face, ET Tube in place). Negative for: Atraumatic Pupils: Positive for: PERRL Extroacular Muscles: Positive for: EOMI Conjunctiva: Positive for: Normal Mouth: Positive for: Moist Mucous Membranes Neck: Positive for: Normal Range of Motion. Negative for: JVD, Bruit Respiratory/Chest: Positive for: Good Air Exchange, Decreased Breath Sounds ( bibasilar R > L), Rales (bibasilar ). Negative for: Clear to Auscultation, Respiratory Distress, Accessory Muscle Use, Wheezes, Retracting, Rhonchi Cardiovascular: Positive for: Regular Rate and Rhythm, Normal S1, S2, Peripheal Pulses Present. Negative for: Murmurs Abdomen: Positive for: Normal Bowel Sounds. Negative for: Tenderness, Distention, Peritoneal Signs, Rebound, Guarding Upper Extremity: Positive for: Normal Inspection, NORMAL PULSES, Neurovascularly Intact Lower Extremity: Positive for: NORMAL PULSES, Deformity (right leg shotened and externally rotated ), Neurovascularly Intact, Other (tenderness over b/l hips to palpation). Negative for: Normal Inspection, Normal ROM Neurological: Positive for: CN II-XII Intact, Speech Normal, Motor Func Grossly Intact Skin: Positive for: Warm, Dry, Normal Color. Negative for: Rashes Psychiatric: Positive for: Alert, Oriented x 3 - Medications Active Medications: Active Medications Generic Name Dose Route Start Last Admin Trade Name Freq PRN Reason Stop Dose Admin Acetaminophen 650 mg 08/14/16 23:50 08/15/16 00:15 Tylenol 650mg/20.3ml Solution Ud PO 650 mg Q6H PRN Administration temp.100.4&above;mild pain 1-3 Albuterol/Ipratropium 3 ml 08/16/16 14:00 08/17/16 07:33 Duoneb 3 Mg/0.5 Mg (3 Ml) Ud INH 3 ml RQ6 [place] Administration Digoxin 0.25 mg 08/11/16 18:00 08/16/16 17:52 Lanoxin PO 0.25 mg DAILY@1800 [place] Administration Heparin Sodium (Porcine) 5,000 units 08/15/16 22:00 08/17/16 09:30 Heparin SC 5,000 units Q12 [place] Administration Cefepime HCl 1 gm/ Dextrose 50 mls @ 100 mls/hr 08/14/16 12:00 08/16/16 23:00 IVPB 100 mls/hr Q12H [place] Administration Lisinopril 5 mg 08/17/16 10:00 08/17/16 10:30 Zestril PO 5 mg DAILY [place] Administration Methylprednisolone 40 mg 08/16/16 13:00 08/17/16 09:31 Solu-Medrol IV 40 mg Q12 [place] Administration Metoprolol Tartrate 25 mg 08/12/16 18:00 08/17/16 09:30 Lopressor PO 25 mg BID [place] Administration Morphine Sulfate 2 mg 08/14/16 15:36 08/15/16 04:20 Morphine IV 2 mg Q4 PRN Administration Pain, severe (8-10) Pantoprazole Sodium 40 mg 08/14/16 10:00 08/17/16 09:23 Protonix Susp GT 40 mg DAILY [place] Administration Potassium Phos/Sodium Phos 1 pkt 08/16/16 10:00 08/17/16 09:23 Neutra-Phos PO 08/18/16 00:00 1 pkt TID [place] Administration - Patient Studies Lab Studies: Microbiology Studies 08/14/16 12:45 Blood Culture - Preliminary Blood-Venous NO GROWTH AFTER 48 HOURS 08/14/16 12:15 Blood Culture - Preliminary Blood-Venous NO GROWTH AFTER 48 HOURS 08/14/16 01:50 Gram Stain - Final Trachasp Sputum Culture - Final Yeast Species Lab Studies 08/17/16 08/17/16 08/16/16 Range/Units 06:34 06:34 20:50 WBC 10.0 (4.8-10.8) K/uL RBC 3.06 L (3.80-5.20) Mil/uL Hgb 11.2 (11.0-16.0) g/dL Hct 34.0 (34.0-47.0) % MCV 111.0 H (81.0-99.0) fL MCH 36.6 H (27.0-31.0) pg MCHC 33.0 (33.0-37.0) g/dL RDW 16.8 H (11.5-14.5) % Plt Count 263 (130-400) K/uL MPV 9.7 (7.2-11.7) fL Neut % (Auto) 97.9 H (50.0-75.0) % Lymph % (Auto) 1.0 L (20.0-40.0) % [place] % (Auto) 1.1 (0.0-10.0) % Eos % (Auto) 0.0 (0.0-4.0) % Baso % (Auto) 0.0 (0.0-2.0) % Neut # 9.7 H (1.8-7.0) K/uL Lymph # 0.1 L (1.0-4.3) K/uL [place] # 0.1 (0.0-0.8) K/uL Eos # 0.0 (0.0-0.7) K/uL Baso # 0.0 (0.0-0.2) K/uL Neutrophils % (Manual) 96 H (50-75) % Band Neutrophils % 2 (0-2) % Lymphocytes % (Manual) 1 L (20-40) % Monocytes % (Manual) 1 (0-10) % Toxic Granulation Present Platelet Estimate Normal (NORMAL) Large Platelets Present Polychromasia Slight Hypochromasia (manual) Slight Poikilocytosis (manual Slight Basophilic Stippling Slight Anisocytosis (manual) Slight Macrocytosis (manual) Moderate [place] Cells Slight Schistocytes Slight Sodium 142 (132-148) mmol/L Potassium 4.2 (3.6-5.2) mmol/L Chloride 107 (98-107) mmol/L Carbon Dioxide 30 (22-30) mmol/L Anion Gap 11 (10-20) BUN 20 H (7-17) mg/dL Creatinine 0.6 L (0.7-1.2) MG/DL Est GFR ( Amer) > 60 Est GFR (Non-Af Amer) > 60 Random Glucose 112 H (65-105) mg/dL Calcium 8.6 (8.6-10.4) mg/dl Phosphorus 3.3 (2.5-4.5) mg/dL Magnesium 2.1 (1.6-2.3) mg/dL Total Bilirubin 0.7 (0.2-1.3) mg/dL AST 32 (14-36) U/L ALT 42 (9-52) U/L Alkaline Phosphatase 123 (38-126) U/L Total Protein 6.1 L (6.3-8.3) g/dL Albumin 2.9 L D (3.5-5.0) g/dL Globulin 3.2 (2.2-3.9) gm/dL Albumin/Globulin Ratio 0.9 L (1.0-2.1) Stool Occult Blood Negative (NEGATIVE) Laboratory Results - last 24 hr 08/16/16 08/17/16 08/17/16 20:50 06:34 06:34 WBC 10.0 RBC 3.06 L Hgb 11.2 Hct 34.0 MCV 111.0 H MCH 36.6 H MCHC 33.0 RDW 16.8 H Plt Count 263 MPV 9.7 Neut % (Auto) 97.9 H Lymph % (Auto) 1.0 L [place] % (Auto) 1.1 Eos % (Auto) 0.0 Baso % (Auto) 0.0 Neut # 9.7 H Lymph # 0.1 L [place] # 0.1 Eos # 0.0 Baso # 0.0 Neutrophils % (Manual) 96 H Band Neutrophils % 2 Lymphocytes % (Manual) 1 L Monocytes % (Manual) 1 Toxic Granulation Present Platelet Estimate Normal Large Platelets Present Polychromasia Slight Hypochromasia (manual) Slight Poikilocytosis (manual Slight Basophilic Stippling Slight Anisocytosis (manual) Slight Macrocytosis (manual) Moderate Heri Cells Slight Schistocytes Slight Sodium 142 Potassium 4.2 Chloride 107 Carbon Dioxide 30 Anion Gap 11 BUN 20 H Creatinine 0.6 L Est GFR ( Amer) > 60 Est GFR (Non-Af Amer) > 60 Random Glucose 112 H Calcium 8.6 Phosphorus 3.3 Magnesium 2.1 Total Bilirubin 0.7 AST 32 ALT 42 Alkaline Phosphatase 123 Total Protein 6.1 L Albumin 2.9 L D Globulin 3.2 Albumin/Globulin Ratio 0.9 L Stool Occult Blood Negative Review of Systems - Review of Systems All systems: reviewed and no additional remarkable complaints except ( Complaining of weakness) Critical Care Progress Note - Nutrition Nutrition: Nutrition Category Date Time Status Liquid Diet [DIET] Diets 08/17/16 Breakfast Active Assessment/Plan (1) Acute respiratory failure Assessment and plan: Patient tolerating CPAP since morning CAT scan of the chest showed no pulmonary embolism but consistent with bilateral pleural effusion and severe emphysema Plan to extubate nebulizer treatment Start IV steroids Continue antibiotics Current Visit: Yes Status: Acute Comment: Status post extubation yesterday and comfortable in no respiratory distress Continue diuretics and antibiotics Start feeding (2) CHF exacerbation Current Visit: Yes Status: Acute (3) Closed fracture of greater trochanter of left femur Current Visit: Yes Status: Acute (4) Garden grade IV closed subcapital fracture of proximal end of right femur Current Visit: Yes Status: Acute
[2016-08-17] MEDS: Digoxin 250 mcg (0.25 mg) Tab PO SCH (17:41)
[2016-08-18] MEDS: Albuterol-Ipratrop 3 mg / 0.5 (3 ml) UD INH SCH ×4 (02:01→20:26)
[2016-08-18 06:29] LABS: BASO % 0.3 % (0.0-2.0); HEMOGLOBIN 10.8 g/dL (11.0-16.0); LYMPH # 0.2 K/uL (1.0-4.3); LYMPH % 1.8 % (20.0-40.0); MEAN CELL VOLUME 111.3 fL (81.0-99.0); MEAN CORPUSCULAR HEMOGLOBIN 35.7 pg (27.0-31.0); MEAN CORPUSCULAR HGB CONC 32.1 g/dL (33.0-37.0); MEAN PLATELET VOLUME 10.3 fL (7.2-11.7); MONO # 0.3 K/uL (0.0-0.8); MONO % 2.1 % (0.0-10.0); NEUT # 12.3 K/uL (1.8-7.0); NEUT % 95.8 % (50.0-75.0); PLATELET COUNT 279 K/uL (130-400); RBC 3.03 Mil/uL (3.80-5.20); RED CELL DISTRIBUTION WIDTH 16.9 % (11.5-14.5); WHITE BLOOD COUNT 12.8 K/uL (4.8-10.8)
[2016-08-18 06:41] LABS: ALBUMIN 2.6 g/dL (3.5-5.0)
[2016-08-18 06:44] LABS: ALB/GLOB RATIO 0.8 (1.0-2.1); AST/SGOT 25 U/L (14-36); BLOOD UREA NITROGEN 23 mg/dL (7-17); GFR AFRICAN-AMERICAN > 60; GFR NON-AFRICAN AMERICAN > 60
[2016-08-18 06:45] LABS: ALT/SGPT 37 U/L (9-52); CALCIUM 8.1 mg/dl (8.6-10.4)
--- NOTE | 2016-08-18 07:28 | CP.PCM.PN ---
Subjective - Date & Time of Evaluation Date of Evaluation: 08/18/16 Time of Evaluation: 08:12 - Subjective Subjective: Patient extubated. Case d/w ICU team. Objective - Vital Signs/Intake and Output Vital Signs (last 24 hours): Temp Pulse Resp BP Pulse Ox 97.6 F 61 11 L 144/65 99 08/17/16 20:00 08/18/16 06:02 08/18/16 06:02 08/18/16 06:02 08/18/16 06:02 Intake and Output: 08/18/16 08/18/16 06:59 18:59 Intake Total 0 0 Output Total 240 30 Balance -240 -30 - Medications Medications: Current Medications Acetaminophen (Tylenol 650mg/20.3ml Solution Ud) 650 mg PO Q6H PRN PRN Reason: temp.100.4&above;mild pain 1-3 Last Admin: 08/15/16 00:15 Dose: 650 mg Albuterol/Ipratropium (Duoneb 3 Mg/0.5 Mg (3 Ml) Ud) 3 ml INH RQ6 [facility] Last Admin: 08/18/16 02:01 Dose: Not Given Digoxin (Lanoxin) 0.25 mg PO DAILY@1800 [facility] Last Admin: 08/17/16 17:41 Dose: 0.25 mg Heparin Sodium (Porcine) (Heparin) 5,000 units SC Q12 [facility] Last Admin: 08/17/16 21:31 Dose: 5,000 units Cefepime HCl 1 gm/ Dextrose 50 mls @ 100 mls/hr IVPB Q12H [facility] Last Admin: 08/17/16 23:45 Dose: 100 mls/hr Lisinopril (Zestril) 5 mg PO DAILY [facility] Last Admin: 08/17/16 10:30 Dose: 5 mg Methylprednisolone (Solu-Medrol) 40 mg IV Q12 [facility] Last Admin: 08/17/16 21:28 Dose: 40 mg Metoprolol Tartrate (Lopressor) 25 mg PO BID [facility] Last Admin: 08/17/16 17:41 Dose: 25 mg Morphine Sulfate (Morphine) 2 mg IV Q4 PRN PRN Reason: Pain, severe (8-10) Last Admin: 08/18/16 05:33 Dose: 2 mg Pantoprazole Sodium (Protonix Susp) 40 mg GT DAILY [facility] Last Admin: 08/17/16 09:23 Dose: 40 mg - Labs Labs: 08/18/16 06:24 08/18/16 06:24 PT 10.8 SECONDS (9.7-12.2) 08/15/16 06:14 INR 1.0 08/15/16 06:14 APTT 32 SECONDS (21-34) 08/15/16 06:14 - Extremities Exam Additional comments: RLE: shortened, ER. venodynes/heel protector boots intact. +ROM ankle/toes, +DP pulse Assessment and Plan (1) Garden grade IV closed subcapital fracture of proximal end of right femur Assessment & Plan: awaiting medical optimization for right hip surgery on heparin for VTE cristal d/w Dr. Elena, agrees with above Status: Acute (2) Degenerative joint disease of right hip Status: Chronic (3) Closed fracture of greater trochanter of left femur Assessment & Plan: non operative Status: Acute
--- NOTE | 2016-08-18 08:06 | CT ---
PROCEDURE: CT Chest with contrast (Pulmonary Angiogram) HISTORY: COMPARISON: None available. TECHNIQUE: Axial computed tomography images were obtained of the chest in the pulmonary arterial phase of enhancement. Coronal and sagittal reformatted images were created and reviewed. Intravenous contrast dose: 100 cc Visipaque 320 contrast Radiation dose: Total exam DLP = 307.52 MGy-cm. This CT exam was performed using one or more of the following dose reduction techniques: Automated exposure control, adjustment of the mA and/or kV according to patient size, and/or use of iterative reconstruction technique. FINDINGS: PULMONARY ARTERIES: The visualized portions of the pulmonary trunk, right and left main, lobar, segmental and proximal subsegmental branches of the pulmonary arteries are well opacified with no definitive filling defects seen suggest acute pulmonary embolus. Pulmonary trunk measures approximately 2.5 cm in transverse dimension. AORTA: The ascending thoracic aorta measures approximately 3.14 cm and descending thoracic aorta measures approximately 2.57 cm. 0 LUNGS: Bilateral effusions and bibasilar atelectasis. Severe centrilobular and panlobular emphysematous changes with small blebs and bulla. PLEURAL SPACES: No pneumothorax HEART: Heart is enlarged. No evidence of significant pericardial effusion. Mild left ventricular hypertrophy. . LYMPH NODES: No no significant mediastinal nor hilar adenopathy so far as can be seen. BONES, CHEST WALL: Unremarkable. No fracture or destructive lesion thoracic vertebral bodies exhibit normal stature of. No evidence of acute compression fractures nor retropulsed fragments. There is mild dextroscoliosis centered in the mid to lower thoracic region. There OTHER FINDINGS: In situ ETT, tip of which lies approximately in 5.6 cm above priya. In situ NGT, the, distal aspect of which lies within the lumen of stomach IMPRESSION: No evidence of acute central pulmonary embolus. Moderate to large bilateral effusions and mild bibasilar atelectasis. . Severe emphysematous changes upper lobe predominance as above. Cardiomegaly with mild LVH. In situ ETT and NGT as above.
[2016-08-18 08:25] LABS: ANISOCYTOSIS SLIGHT; BANDS 3 % (0-2); LYMPHOCYTE 1 % (20-40); MONOCYTE 1 % (0-10); NEUTROPHIL 95 % (50-75); PLATELET ESTIMATE NORMAL (NORMAL); TOTAL CELLS COUNTED 100
[2016-08-18 08:26] LABS: POIKILOCYTOSIS SLIGHT
--- NOTE | 2016-08-18 08:42 | CP.PCM.PN ---
Subjective - Date & Time of Evaluation Date of Evaluation: 08/18/16 Time of Evaluation: 08:00 - Subjective Subjective: Pt resting no events extubated Objective - Vital Signs/Intake and Output Vital Signs (last 24 hours): Temp Pulse Resp BP Pulse Ox 97.8 F 52 L 10 L 121/55 L 100 08/18/16 04:00 08/18/16 07:03 08/18/16 07:03 08/18/16 07:03 08/18/16 07:03 Intake and Output: 08/18/16 08/18/16 06:59 18:59 Intake Total 0 0 Output Total 240 30 Balance -240 -30 - Medications Medications: Current Medications Acetaminophen (Tylenol 650mg/20.3ml Solution Ud) 650 mg PO Q6H PRN PRN Reason: temp.100.4&above;mild pain 1-3 Last Admin: 08/15/16 00:15 Dose: 650 mg Albuterol/Ipratropium (Duoneb 3 Mg/0.5 Mg (3 Ml) Ud) 3 ml INH RQ6 [facility] Last Admin: 08/18/16 07:58 Dose: 3 ml Digoxin (Lanoxin) 0.25 mg PO DAILY@1800 [facility] Last Admin: 08/17/16 17:41 Dose: 0.25 mg Heparin Sodium (Porcine) (Heparin) 5,000 units SC Q12 [facility] Last Admin: 08/17/16 21:31 Dose: 5,000 units Cefepime HCl 1 gm/ Dextrose 50 mls @ 100 mls/hr IVPB Q12H [facility] Last Admin: 08/17/16 23:45 Dose: 100 mls/hr Lisinopril (Zestril) 5 mg PO DAILY [facility] Last Admin: 08/17/16 10:30 Dose: 5 mg Methylprednisolone (Solu-Medrol) 40 mg IV Q12 [facility] Last Admin: 08/17/16 21:28 Dose: 40 mg Metoprolol Tartrate (Lopressor) 25 mg PO BID [facility] Last Admin: 08/17/16 17:41 Dose: 25 mg Morphine Sulfate (Morphine) 2 mg IV Q4 PRN PRN Reason: Pain, severe (8-10) Last Admin: 08/18/16 05:33 Dose: 2 mg Pantoprazole Sodium (Protonix Susp) 40 mg GT DAILY [facility] Last Admin: 08/17/16 09:23 Dose: 40 mg - Labs Labs: 08/18/16 06:24 08/18/16 06:24 PT 10.8 SECONDS (9.7-12.2) 08/15/16 06:14 INR 1.0 08/15/16 06:14 APTT 32 SECONDS (21-34) 08/15/16 06:14 - Constitutional Appears: Chronically Ill - Head Exam Head Exam: ATRAUMATIC - Eye Exam Eye Exam: Normal appearance - ENT Exam ENT Exam: Mucous Membranes Moist - Respiratory Exam Respiratory Exam: NORMAL BREATHING PATTERN - Cardiovascular Exam Cardiovascular Exam: REGULAR RHYTHM - GI/Abdominal Exam GI & Abdominal Exam: Soft - Exam External exam: absent: Ecchymosis - Extremities Exam Extremities Exam: absent: Full ROM - Neurological Exam Neurological Exam: Alert, Awake - Psychiatric Exam Psychiatric exam: absent: Anxious - Skin Skin Exam: Dry Assessment and Plan (1) CHF exacerbation Assessment & Plan: Pt comfortable s/p extubation stable Status: Acute
[2016-08-18] MEDS: MethylPREDNISolone 40 mg Vial IV SCH (10:17)
[2016-08-18] MEDS: Pantoprazole 40 mg Susp UD GT SCH (10:18)
--- NOTE | 2016-08-18 10:46 | CARD ---
APPROVED REPORT EKG Measurement Heart [id number] <Conclusion> Sinus tachycardia with multiple PACs / PJCs versus Multifocal Atrial Tach. Nonspecific ST/T abnormality. Abnormal ECG
--- NOTE | 2016-08-18 11:05 | CP.CCUPN ---
CCU Subjective - Physician Review Subjective (Free Text): 08/11/16 15:46 Patient seen and examined at the bedside. No acute distress. No acute events overnight. Nursing staff reports no issues. Patient's pain is controlled with PO tylenol at this point. Morphine added for additional pain control PRN. The patient has an acute exacerbation of CHF and remains medically unfit for OR for TAMARA. The patient denies fever, chills, headache, chest pain, SOB, abdominal pain, N/V/D/C. Today on rounds, the patient was placed on scheduled PO digoxin 0.25mg, and IV morphine 1mg q4 prn was added for additional pain control. The topic of advanced directives was also discussed at length. 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 Under circumstances where recovery to a quality of live that will enable her to care for her is not certain, she wishes no extraordinary measures to be taken. 08/12/16 14:52 Patient seen and examined at the bedside. No acute distress. No acute events overnight. Nursing staff reports no issues. Patient's pain is controlled with PO tylenol and morphine PRN. The patient has been tentatively scheduled for OR at 11:30am with Dr. Elena pending medical risk assessment and clearance. The patient reports continued right leg pain. Per the patient, the pain is adequately controlled. The patient denies fever, chills, headache, chest pain, SOB, abdominal pain, N/V/D/C. Today on rounds, the patient's heparin drip was changed to cardiac protocol. Dr. Peacock was consulted for chronic low ejection systolic heart failure and new onset a-fib. The patient's phosphorous, magnesium, and potassium were replaced. To supplement her diet, Boost was added with all meals and ensure was added one time daily at night. 08/13/16 11:30 Patient seen and examined at the bedside. No acute distress. No acute events overnight. Nursing staff reports no issues. Patient is for cardiac cath with Dr. Cantu today. Patient is in pain this morning. 1 dose of morphine was given with good result. The patient is tentatively scheduled for the OR on with Dr. Elena pending medical risk assessment and stratification. The patient denies fever, chills, headache, chest pain, SOB, abdominal pain, N/V/D/ C. Today on rounds, The patients phosphorous was replaced. Repeat TONY panel and EKG were also ordered for 13:00 t0 trend mildly elevated troponin measurements. 08/14/16 14:28 Patient seen and examined at the bedside. No acute distress. Patient called for code blue at 19:34 last night. Patient was intubated by post doc fellowship at bedside. Patient on PRVC this morning. Central line access left femoral vein. Nursing staff reports no issues. Today on rounds, the patient's presser was changed to levophed from dopamine, lovenox VTE prophylaxis was initiated, tube feeds were started, cerna cultures were sent, and the patients magnesium was replaced. 08/15/16 07:44 Patient seen and examined at the bedside. No acute distress. No acute events overnight. Nursing staff reports no issues. Patient was trialed on CPAP yesterday and tolerated it for a short time. Curently on PRVC (400 / 12 / 60% / 5) The patient is restless this morning. The patient appears more awake this morning. The overnight nursing staff reports that the patient intermittently followed commands. This morning the patient is minimally able to follow commands. Today on rounds, the patient's magnesium was replaced. A ct head and CTA chest were also ordered. 08/18/16 11:02 Patient seen and examined at the bedside. No acute distress. No acute events overnight. Nursing staff reports no issues. The patient has been extubated and is saturating well on her own. The patient has no complaints this morning. The patient's hip pain is well controlled at this point. The patient denies fever, chills, headache, chest pain ,shortness of breath, abdominal pain, N/V/D/ C, changes in bowel/bladder, and extremity paresthesias. Today on rounds, the patient's solumedrol was decreased from q12 to daily. The patient's diet was also advanced. She will be advanced to a heart healthy diet as tolerated. She passed her swallow evaluation this morning. Critical Care Time Spent (in minutes): 60 CCU Objective - Vital Signs / Intake & Output Vital Signs (Last 4 hours): Vital Signs Temp Pulse Resp BP Pulse Ox 08/18/16 10:18 140/52 L 08/18/16 10:02 59 L 10 L 140/52 L 100 08/18/16 10:00 96.2 F L 66 10 L 140/52 L 100 08/18/16 09:02 69 10 L 129/62 100 08/18/16 09:00 67 11 L 100 08/18/16 08:03 59 L 10 L 130/54 L 100 08/18/16 08:00 95.8 F L 62 20 08/18/16 07:03 52 L 10 L 121/55 L 100 Intake and Output (Last 8hrs): Intake & Output 08/17/16 08/18/16 08/18/16 22:59 06:59 14:59 Intake Total 180 0 130 Output Total 100 210 95 Balance 80 -210 35 Weight 57.153 kg Intake: Intake, IV Amount 0 Left Femoral TLC Distal 0 Oral 180 0 130 Output: Urine 100 210 95 Urethral (Jones) 100 210 95 Other: # Bowel Movements 1 - Physical Exam Head: Positive for: Normocephalic, Ecchymosis, Other (Contusions over left side of face healing). Negative for: Atraumatic Pupils: Positive for: PERRL Extroacular Muscles: Positive for: EOMI Conjunctiva: Positive for: Normal Mouth: Positive for: Moist Mucous Membranes Neck: Positive for: Normal Range of Motion. Negative for: JVD, Bruit Respiratory/Chest: Positive for: Good Air Exchange, Decreased Breath Sounds ( bibasilar R > L), Rales (bibasilar ). Negative for: Clear to Auscultation, Respiratory Distress, Accessory Muscle Use, Wheezes, Retracting, Rhonchi Cardiovascular: Positive for: Regular Rate and Rhythm, Normal S1, S2, Peripheal Pulses Present. Negative for: Murmurs Abdomen: Positive for: Normal Bowel Sounds. Negative for: Tenderness, Distention, Peritoneal Signs, Rebound, Guarding Upper Extremity: Positive for: Normal Inspection, NORMAL PULSES, Neurovascularly Intact Lower Extremity: Positive for: NORMAL PULSES, Deformity (right leg shotened and externally rotated ), Neurovascularly Intact, Other (tenderness over b/l hips to palpation). Negative for: Normal Inspection, Normal ROM Neurological: Positive for: CN II-XII Intact, Speech Normal, Motor Func Grossly Intact Skin: Positive for: Warm, Dry, Normal Color. Negative for: Rashes Psychiatric: Positive for: Alert, Oriented x 3 - Medications Active Medications: Active Medications Generic Name Dose Route Start Last Admin Trade Name Freq PRN Reason Stop Dose Admin Acetaminophen 650 mg 08/14/16 23:50 08/15/16 00:15 Tylenol 650mg/20.3ml Solution Ud PO 650 mg Q6H PRN Administration temp.100.4&above;mild pain 1-3 Albuterol/Ipratropium 3 ml 08/16/16 14:00 08/18/16 07:58 Duoneb 3 Mg/0.5 Mg (3 Ml) Ud INH 3 ml RQ6 [place] Administration Digoxin 0.25 mg 08/11/16 18:00 08/17/16 17:41 Lanoxin PO 0.25 mg DAILY@1800 [facility] Administration Heparin Sodium (Porcine) 5,000 units 08/15/16 22:00 08/18/16 10:17 Heparin SC 5,000 units Q12 [facility] Administration Cefepime HCl 1 gm/ Dextrose 50 mls @ 100 mls/hr 08/14/16 12:00 08/17/16 23:45 IVPB 100 mls/hr Q12H [place] Administration Lisinopril 5 mg 08/17/16 10:00 08/18/16 10:18 Zestril PO 5 mg DAILY [place] Administration Methylprednisolone 40 mg 08/18/16 10:00 08/18/16 10:17 Solu-Medrol IV 40 mg DAILY [place] Administration Metoprolol Tartrate 25 mg 08/12/16 18:00 08/18/16 10:18 Lopressor PO 25 mg BID [place] Administration Morphine Sulfate 2 mg 08/14/16 15:36 08/18/16 05:33 Morphine IV 2 mg Q4 PRN Administration Pain, severe (8-10) Pantoprazole Sodium 40 mg 08/14/16 10:00 08/18/16 10:18 Protonix Susp GT 40 mg DAILY [place] Administration - Patient Studies Lab Studies: Microbiology Studies 08/14/16 12:45 Blood Culture - Preliminary Blood-Venous NO GROWTH AFTER 3 DAYS 08/14/16 12:15 Blood Culture - Preliminary Blood-Venous NO GROWTH AFTER 3 DAYS Lab Studies 08/18/16 08/18/16 Range/Units 06:24 06:24 WBC 12.8 H (4.8-10.8) K/uL RBC 3.03 L (3.80-5.20) Mil/uL Hgb 10.8 L (11.0-16.0) g/dL Hct 33.7 L (34.0-47.0) % MCV 111.3 H (81.0-99.0) fL MCH 35.7 H (27.0-31.0) pg MCHC 32.1 L (33.0-37.0) g/dL RDW 16.9 H (11.5-14.5) % Plt Count 279 (130-400) K/uL MPV 10.3 (7.2-11.7) fL Neut % (Auto) 95.8 H (50.0-75.0) % Lymph % (Auto) 1.8 L (20.0-40.0) % Monona % (Auto) 2.1 (0.0-10.0) % Eos % (Auto) 0.0 (0.0-4.0) % Baso % (Auto) 0.3 (0.0-2.0) % Neut # 12.3 H (1.8-7.0) K/uL Lymph # 0.2 L (1.0-4.3) K/uL Monona # 0.3 (0.0-0.8) K/uL Eos # 0.0 (0.0-0.7) K/uL Baso # 0.0 (0.0-0.2) K/uL Neutrophils % (Manual) 95 H (50-75) % Band Neutrophils % 3 H (0-2) % Lymphocytes % (Manual) 1 L (20-40) % Monocytes % (Manual) 1 (0-10) % Differential Comment Cancelled Platelet Estimate Normal (NORMAL) Poikilocytosis (manual Slight Basophilic Stippling Slight Anisocytosis (manual) Slight Macrocytosis (manual) Moderate Sodium 138 (132-148) mmol/L Potassium 4.3 (3.6-5.2) mmol/L Chloride 103 (98-107) mmol/L Carbon Dioxide 31 H (22-30) mmol/L Anion Gap 8 L (10-20) BUN 23 H (7-17) mg/dL Creatinine 0.5 L (0.7-1.2) MG/DL Est GFR ( Amer) > 60 Est GFR (Non-Af Amer) > 60 Random Glucose 106 H (65-105) mg/dL Calcium 8.1 L (8.6-10.4) mg/dl Phosphorus 3.4 (2.5-4.5) mg/dL Magnesium 2.0 (1.6-2.3) mg/dL Total Bilirubin 0.6 (0.2-1.3) mg/dL AST 25 (14-36) U/L ALT 37 (9-52) U/L Alkaline Phosphatase 109 (38-126) U/L Total Protein 5.7 L (6.3-8.3) g/dL Albumin 2.6 L (3.5-5.0) g/dL Globulin 3.1 (2.2-3.9) gm/dL Albumin/Globulin Ratio 0.8 L (1.0-2.1) Laboratory Results - last 24 hr 08/18/16 08/18/16 06:24 06:24 WBC 12.8 H RBC 3.03 L Hgb 10.8 L Hct 33.7 L MCV 111.3 H MCH 35.7 H MCHC 32.1 L RDW 16.9 H Plt Count 279 MPV 10.3 Neut % (Auto) 95.8 H Lymph % (Auto) 1.8 L Monona % (Auto) 2.1 Eos % (Auto) 0.0 Baso % (Auto) 0.3 Neut # 12.3 H Lymph # 0.2 L Monona # 0.3 Eos # 0.0 Baso # 0.0 Neutrophils % (Manual) 95 H Band Neutrophils % 3 H Lymphocytes % (Manual) 1 L Monocytes % (Manual) 1 Differential Comment Cancelled Platelet Estimate Normal Poikilocytosis (manual Slight Basophilic Stippling Slight Anisocytosis (manual) Slight Macrocytosis (manual) Moderate Sodium 138 Potassium 4.3 Chloride 103 Carbon Dioxide 31 H Anion Gap 8 L BUN 23 H Creatinine 0.5 L Est GFR ( Amer) > 60 Est GFR (Non-Af Amer) > 60 Random Glucose 106 H Calcium 8.1 L Phosphorus 3.4 Magnesium 2.0 Total Bilirubin 0.6 AST 25 ALT 37 Alkaline Phosphatase 109 Total Protein 5.7 L Albumin 2.6 L Globulin 3.1 Albumin/Globulin Ratio 0.8 L Review of Systems - Review of Systems Review of Systems: All systems: reviewed and no additional remarkable complaints except - EENT Eyes: absent: Blind Spots, Blurred Vision Ears: absent: Decreased Hearing, Tinnitus Nose/Mouth/Throat: absent: Nasal Congestion, Facial Pain, Neck Pain - Cardiovascular Cardiovascular: absent: Chest Pain, Palpitations, Syncope - Respiratory Respiratory: absent: Cough, Dyspnea, Dyspnea on Exertion - Gastrointestinal Gastrointestinal: absent: Abdominal Pain, Constipation, Diarrhea, Nausea, Vomiting - Genitourinary Genitourinary: absent: Change in Urinary Stream, Difficulty Urinating - Musculoskeletal Musculoskeletal: Arthralgias, Limited Range of Motion, Myalgias - Integumentary Integumentary: absent: Lesions, Rash, Wounds - Neurological Neurological: absent: Sensory Deficit, Syncope, Tingling, Tremor, Vertigo, Weakness - Endocrine Endocrine: absent: Cold Intolorance, Heat Intolorance Critical Care Progress Note - Extremities/Vascular Does the Patient have a Central Venous Catheter?: Yes Insertion Site: Femoral Vein (left) Does the Patient need a Central Venous Catheter?: Yes Does the Patient have a Jones Catheter?: Yes Does the Patient need a Jones Catheter?: Yes Catheter Insertion Criteria: Patient requires prolonged immobilization - Prophylaxis GI Prophylaxis GI: PPI - Prophylaxis DVT Prophylaxis DVT: Heparin SQ - Nutrition Nutrition: Nutrition Category Date Time Status Liquid Diet [DIET] Diets 08/17/16 Breakfast Active Assessment/Plan (1) Garden grade IV closed subcapital fracture of proximal end of right femur Current Visit: Yes Status: Acute (2) CHF exacerbation Current Visit: Yes Status: Acute (3) Closed fracture of greater trochanter of left femur Current Visit: Yes Status: Acute (4) Multifocal atrial tachycardia Current Visit: Yes Status: Chronic (5) CHF (NYHA class III, ACC/AHA stage C) Current Visit: Yes Status: Chronic - Assessment and Plan (Free Text) Plan: Patient Status: RESIGHINI II- 14 Extubated Condition likely to be as stable as it can be prior for OR Dr. Rodriguez for medical risk assessment for surgery Neuro: -No acute issues -08/15/16 CT Head- No acute intracranial abnormality. Moderate chronic microangiopathic changes and mild age-related global parenchymal volume loss. Cardiovascular: -for PICC line today, s/p PICC will d/c femoral TLC- consent in chart -s/p code blue 08/13/16 -metoprolol 25mg po bid -Digoxin 0.25mg PO daily -Lisinopril 5mg po daily -Acute Exacerbation of Chronic Systolic CHF (NYHA Class III C) -Multifocal Atrial Tachycardia -Cardiology Consult- Dr. Peacock- life vest on DC -08/14/16 Echo ordered- severe systolic dysfunction -08/13/16 Cardiac Cath- complete RCA occlusion, good collateral flow from LAD. No stent indicated at this time -08/12/16 EKG- Normal sinus rhythm, normal intervals, normal axis, evidence of anterior wall and inferior wall ischemia- official read pending -08/09/16 Echo- EF 26%, grade I abnormal relaxation pattern, moderate-severe mitral regurgitation, mild pulm HTN Pulmonary: -08/15/16 CTA Chest- In situ ETT, tip of which lies approximately in 5.6 cm above priya. In situ NGT, the, distal aspect of which lies within the lumen of stomach. No evidence of acute central pulmonary embolus. Moderate to large bilateral effusions and mild bibasilar atelectasis. . Severe emphysematous changes upper lobe predominance as above. Cardiomegaly with mild LVH. -Imaging : 08/16/16 CXR- No significant interval change. : 08/15/16 CXR- The ETT tip lies approximately 5.17 cm above priya. . In situ NGT is present, the tip of which has not been included on this film though distal aspect does lie well below EG junction. Moderately large bilateral effusions and bibasilar atelectasis. : 08/14/16 CXR- stable position of lines and tubes- official read pending : 08/13/16 CXR- Biapical pleural thickening with upper lobe granulomatous changes. Diffuse increased interstitial lung markings. Prominent airspace opacities in the mid to lower lung zones with associated moderate bilateral pleural effusions. Scattered nodular densities throughout both lungs. Cardiomegaly. : 08/11/16 CTA Chest- No large central or segmental pulmonary embolus evident. Emphysematous changes. Small to moderate right greater than left pleural effusions and associated compressive consolidations. Cardiomegaly. No significant pericardial effusion. Atherosclerotic calcifications of the aorta. Dense coronary artery calcifications. : 08/11/16 CXR- Biapical pleural thickening with upper lobe granulomatous changes. Prominent calcified granulomatous changes in the right lung apex. Moderate bilateral pleural effusions with prominent airspace opacities in the mid to lower lung zones bilaterally. Scattered nodularity throughout both lungs. Diffuse increased interstitial lung markings throughout both lungs. : 08/10/16 CXR- Cardiomegaly and atherosclerotic disease; bilateral pleural effusions with basilar opacities atelectasis and/or infiltrate, findings greatest on the left -ABG :08/16/16- CO2 40, O2 84, HCO3 29.5, pH 7.48 :08/15/16- CO2 49, O2 75, HCO3 27.7, pH 7.39 :08/14/16- CO2 45, O2 58, HCO3 29.1, pH 7.44 :08/13/16- CO2 54, O2 74, HCO3 24.8, pH 7.31 Gastrointestinal: -No acute complaints -Clear Liquid Diet- supplementation with Boost Breeze TID - when diet is advanced, resume Boost Plus TID -Passed swallow today Hematology: -No acute issues Endocrine: -No issues Renal: -Hypomagnesemia- replaced with 1g mag IV Musculoskeletal: -Doppler US Negative for DVT -Right Garden IV Displaced Subcapital Femoral Neck Fracture -Left Isolated Greater Trochanter Fracture -Pain Control- Tylenol 650mg PO q6 PRN, morphine 1mg IV q4 PRN -Dr. Elena on case for orthopedic evaluation- OR thursday -Imaging -08/08/16 R Knee XR- no acute fracture of dislocation -08/07/16 CT Pelvis- 1. Impacted fracture of the proximal right femur. This appears and involves the neck of the femur. 2. Preserved right femoral acetabular relationship. 3. Destructive process with associated fracture of the greater trochanter left femur. Abundant soft tissue swelling noted. . By history, the patient does not have a known malignancy. -08/07/16 Pelvis XR- Fracture right femoral neck with displacement and mild impaction. Questionable fracture of left greater trochanter. Please correlate clinically and consider further radiographic evaluation. Genitourinary: -No issues -Continue jones catheter Infectious Disease: -cefepime started 1g q12- day 5 GI Prophylaxis: Protonix 40mg PO daily DVT Prophylaxis: Lovenox 40mg SC daily Case Discussed with Dr. Gali Grijalva PGY1 - Date & Time Date: 08/18/16 Time: 11:07
--- NOTE | 2016-08-18 13:12 | RAD ---
HISTORY: PICC evaluation COMPARISON: Chest x-ray performed 08/16/16 TECHNIQUE: Chest, one view. FINDINGS: Right-sided PICC extends expected location of the cavoatrial junction. Interval removal of endotracheal tube and nasogastric tube. LUNGS: Increased interstitial markings may reflect infection or edema. Layering [id number]-right pleural effusions and associated consolidations. Biapical pleural thickening. No definite pneumothorax. Please note that chest x-ray has limited sensitivity for the detection of pulmonary masses. CARDIOVASCULAR: Cardiomegaly. Dense atherosclerotic calcification of the aorta. OSSEOUS STRUCTURES: Osseous demineralization. Degenerative changes. VISUALIZED UPPER ABDOMEN: Unremarkable. OTHER FINDINGS: None. IMPRESSION: Right-sided PICC extends expected location of the cavoatrial junction. Interval removal of endotracheal tube and nasogastric tube. Increased interstitial markings may reflect infection or edema. Layering [id number]-right pleural effusions and associated consolidations. Biapical pleural thickening. Cardiomegaly.
[2016-08-18] MEDS: Digoxin 250 mcg (0.25 mg) Tab PO SCH (17:21)
--- NOTE | 2016-08-18 18:25 | CP.PCM.PN ---
Subjective - Date & Time of Evaluation Date of Evaluation: 08/18/16 Time of Evaluation: 18:22 - Subjective Subjective: Patient alert,oriented, in no respiratory distress, with better appetite. Urine output remains poor. PAtient is still on Solumedrol IV and Cefepime. Bp:135/80 HR: 80 regular and Afebrile. Objective - Vital Signs/Intake and Output Vital Signs (last 24 hours): Temp Pulse Resp BP Pulse Ox 97.4 F L 58 L 14 116/59 L 95 08/18/16 12:00 08/18/16 13:03 08/18/16 13:03 08/18/16 17:19 08/18/16 13:00 Intake and Output: 08/18/16 08/18/16 06:59 18:59 Intake Total 0 230 Output Total 240 260 Balance -240 -30 - Medications Medications: Current Medications Acetaminophen (Tylenol 650mg/20.3ml Solution Ud) 650 mg PO Q6H PRN PRN Reason: temp.100.4&above;mild pain 1-3 Last Admin: 08/15/16 00:15 Dose: 650 mg Albuterol/Ipratropium (Duoneb 3 Mg/0.5 Mg (3 Ml) Ud) 3 ml INH RQ6 [facility] Last Admin: 08/18/16 13:49 Dose: 3 ml Digoxin (Lanoxin) 0.25 mg PO DAILY@1800 [facility] Last Admin: 08/18/16 17:21 Dose: 0.25 mg Heparin Sodium (Porcine) (Heparin) 5,000 units SC Q12 [facility] Last Admin: 08/18/16 10:17 Dose: 5,000 units Cefepime HCl 1 gm/ Dextrose 50 mls @ 100 mls/hr IVPB Q12H [facility] Last Admin: 08/18/16 12:35 Dose: 100 mls/hr Lisinopril (Zestril) 5 mg PO DAILY [facility] Last Admin: 08/18/16 10:18 Dose: 5 mg Methylprednisolone (Solu-Medrol) 40 mg IV DAILY [facility] Last Admin: 08/18/16 10:17 Dose: 40 mg Metoprolol Tartrate (Lopressor) 25 mg PO BID [facility] Last Admin: 08/18/16 17:19 Dose: 25 mg Morphine Sulfate (Morphine) 2 mg IV Q4 PRN PRN Reason: Pain, severe (8-10) Last Admin: 08/18/16 17:22 Dose: 2 mg Pantoprazole Sodium (Protonix Ec Tab) 40 mg PO DAILY [place] - Labs Labs: 08/18/16 06:24 08/18/16 06:24 PT 10.8 SECONDS (9.7-12.2) 08/15/16 06:14 INR 1.0 08/15/16 06:14 APTT 32 SECONDS (21-34) 08/15/16 06:14 - Constitutional Appears: No Acute Distress, Chronically Ill - Head Exam Head Exam: NORMAL INSPECTION - Eye Exam Eye Exam: Normal appearance - ENT Exam ENT Exam: Normal Exam - Respiratory Exam Respiratory Exam: Rhonchi Additional comments: Rhonchi bilaterally. - Cardiovascular Exam Cardiovascular Exam: REGULAR RHYTHM - GI/Abdominal Exam GI & Abdominal Exam: Soft, Normal Bowel Sounds - Extremities Exam Additional comments: Tender both hip. Externa rotation of the right leg. . - Back Exam Back Exam: NORMAL INSPECTION - Neurological Exam Neurological Exam: Alert, Awake, Oriented x3 - Psychiatric Exam Psychiatric exam: Anxious - Skin Additional comments: Left joaquín-orbital hematoma. Excoriations all over the arms, wrists, legs, knees. Assessment and Plan (1) Closed fracture of greater trochanter of left femur Status: Acute (2) Dehydration Assessment & Plan: Encourage PO fluid intake. Status: Resolved (3) Sepsis Status: Acute (4) Fall Status: Acute (5) Arrhythmia Status: Acute (6) Contusion of head Status: Acute (7) Garden grade IV closed subcapital fracture of proximal end of right femur Assessment & Plan: For right hip replacement when more stable. Status: Acute (8) CHF exacerbation Status: Resolved (9) Acute respiratory failure Status: Resolved
[2016-08-19] MEDS: Albuterol-Ipratrop 3 mg / 0.5 (3 ml) UD INH SCH ×4 (01:30→20:05)
[2016-08-19 06:37] LABS: BASO % 0.2 % (0.0-2.0); HEMOGLOBIN 11.6 g/dL (11.0-16.0); LYMPH # 0.4 K/uL (1.0-4.3); LYMPH % 2.7 % (20.0-40.0); MEAN CELL VOLUME 111.9 fL (81.0-99.0); MEAN CORPUSCULAR HEMOGLOBIN 36.2 pg (27.0-31.0); MEAN CORPUSCULAR HGB CONC 32.3 g/dL (33.0-37.0); MEAN PLATELET VOLUME 9.7 fL (7.2-11.7); MONO # 1.1 K/uL (0.0-0.8); MONO % 8.4 % (0.0-10.0); NEUT # 11.7 K/uL (1.8-7.0); NEUT % 88.7 % (50.0-75.0); PLATELET COUNT 285 K/uL (130-400); RBC 3.21 Mil/uL (3.80-5.20); RED CELL DISTRIBUTION WIDTH 16.7 % (11.5-14.5); WHITE BLOOD COUNT 13.2 K/uL (4.8-10.8)
[2016-08-19 06:45] LABS: ALBUMIN 2.7 g/dL (3.5-5.0)
[2016-08-19 06:48] LABS: AST/SGOT 31 U/L (14-36); GFR AFRICAN-AMERICAN > 60; GFR NON-AFRICAN AMERICAN > 60
[2016-08-19 06:49] LABS: ALB/GLOB RATIO 0.9 (1.0-2.1); ALT/SGPT 47 U/L (9-52); BLOOD UREA NITROGEN 26 mg/dL (7-17); CALCIUM 8.1 mg/dl (8.6-10.4)
[2016-08-19 06:50] LABS: MAGNESIUM 1.9 mg/dL (1.6-2.3)
[2016-08-19] MEDS ORDERED: Magnesium Sulfate 1 gm in D5W 1 GM/100 ML BAG IVPB ONE (07:25)
[2016-08-19] MEDS: Sodium Chloride 0.9% 1,000 ML IV SCH (08:05)
[2016-08-19 08:09] LABS: INR 0.9; PROTHROMBIN TIME 9.7 SECONDS (9.7-12.2)
--- NOTE | 2016-08-19 08:59 | CP.CCUPN ---
<Donnell Grijalva - Last Filed: 08/19/16 16:28> CCU Subjective - Physician Review Subjective (Free Text): 08/11/16 15:46 Patient seen and examined at the bedside. No acute distress. No acute events overnight. Nursing staff reports no issues. Patient's pain is controlled with PO tylenol at this point. Morphine added for additional pain control PRN. The patient has an acute exacerbation of CHF and remains medically unfit for OR for ATMARA. The patient denies fever, chills, headache, chest pain, SOB, abdominal pain, N/V/D/C. Today on rounds, the patient was placed on scheduled PO digoxin 0.25mg, and IV morphine 1mg q4 prn was added for additional pain control. The topic of advanced directives was also discussed at length. 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 Under circumstances where recovery to a quality of live that will enable her to care for her is not certain, she wishes no extraordinary measures to be taken. 08/12/16 14:52 Patient seen and examined at the bedside. No acute distress. No acute events overnight. Nursing staff reports no issues. Patient's pain is controlled with PO tylenol and morphine PRN. The patient has been tentatively scheduled for OR at 11:30am with Dr. Elena pending medical risk assessment and clearance. The patient reports continued right leg pain. Per the patient, the pain is adequately controlled. The patient denies fever, chills, headache, chest pain, SOB, abdominal pain, N/V/D/C. Today on rounds, the patient's heparin drip was changed to cardiac protocol. Dr. Peacock was consulted for chronic low ejection systolic heart failure and new onset a-fib. The patient's phosphorous, magnesium, and potassium were replaced. To supplement her diet, Boost was added with all meals and ensure was added one time daily at night. 08/13/16 11:30 Patient seen and examined at the bedside. No acute distress. No acute events overnight. Nursing staff reports no issues. Patient is for cardiac cath with Dr. Cantu today. Patient is in pain this morning. 1 dose of morphine was given with good result. The patient is tentatively scheduled for the OR on with Dr. Elena pending medical risk assessment and stratification. The patient denies fever, chills, headache, chest pain, SOB, abdominal pain, N/V/D/ C. Today on rounds, The patients phosphorous was replaced. Repeat TONY panel and EKG were also ordered for 13:00 t0 trend mildly elevated troponin measurements. 08/14/16 14:28 Patient seen and examined at the bedside. No acute distress. Patient called for code blue at 19:34 last night. Patient was intubated by smooth plater at bedside. Patient on PRVC this morning. Central line access left femoral vein. Nursing staff reports no issues. Today on rounds, the patient's presser was changed to levophed from dopamine, lovenox VTE prophylaxis was initiated, tube feeds were started, cerna cultures were sent, and the patients magnesium was replaced. 08/15/16 07:44 Patient seen and examined at the bedside. No acute distress. No acute events overnight. Nursing staff reports no issues. Patient was trialed on CPAP yesterday and tolerated it for a short time. Curently on PRVC (400 / 12 / 60% / 5) The patient is restless this morning. The patient appears more awake this morning. The overnight nursing staff reports that the patient intermittently followed commands. This morning the patient is minimally able to follow commands. Today on rounds, the patient's magnesium was replaced. A ct head and CTA chest were also ordered. 08/18/16 11:02 Patient seen and examined at the bedside. No acute distress. No acute events overnight. Nursing staff reports no issues. The patient has been extubated and is saturating well on her own. The patient has no complaints this morning. The patient's hip pain is well controlled at this point. The patient denies fever, chills, headache, chest pain ,shortness of breath, abdominal pain, N/V/D/ C, changes in bowel/bladder, and extremity paresthesias. Today on rounds, the patient's solumedrol was decreased from q12 to daily. The patient's diet was also advanced. She will be advanced to a heart healthy diet as tolerated. She passed her swallow evaluation this morning. 08/19/16 08:59 Patient seen and examined at the bedside. No acute distress. No acute events overnight. Nursing staff reports no issues. The patient has been extubated and is saturating well on her own. Patient reports pain with re-positioning, but notes requesting morphine for the pain prior to the re-positioning. The patient's hip pain is well controlled at this point. The patient is pending medical risk assessment for surgery. The patient is tentatively scheduled for OR with Dr. Elena tomorrow of . This morning, the patient denies all complaints. The patient denies fever, chills, headache, chest pain, SOB, abdominal pain, N/V/D/C, changes in bowel/bladder and extremity paresthesias. Today on rounds, the patient was started on gentle IVF hydration at 60ml/hr for oliguria. The patient's magnesium was replaced, and a portable CXR was ordered for evaluation of the patient's B/L pleural effusions. 08/19/16 16:28 Post rounds, the patient was consented for bedside chest tube placement for thoracentesis of pleural effusion. Critical Care Time Spent (in minutes): 60 CCU Objective - Vital Signs / Intake & Output Vital Signs (Last 4 hours): Vital Signs Pulse Resp BP Pulse Ox 08/19/16 06:02 134/79 08/19/16 06:00 78 17 100 08/19/16 05:02 125/57 L 08/19/16 05:00 75 16 98 Intake and Output (Last 8hrs): Intake & Output 08/18/16 08/19/16 08/19/16 22:59 06:59 14:59 Intake Total 280 470 0 Output Total 145 165 20 Balance 135 305 -20 Intake: Intake, IV Amount 50 Left Femoral TLC Medial 50 Oral 280 420 0 Output: Urine 145 165 20 Urethral (Jones) 145 165 20 Other: # Bowel Movements 0 0 0 - Physical Exam Head: Positive for: Normocephalic, Ecchymosis, Other (Contusions over left side of face healing). Negative for: Atraumatic Pupils: Positive for: PERRL Extroacular Muscles: Positive for: EOMI Conjunctiva: Positive for: Normal Mouth: Positive for: Moist Mucous Membranes Neck: Positive for: Normal Range of Motion. Negative for: JVD, Bruit Respiratory/Chest: Positive for: Good Air Exchange, Decreased Breath Sounds ( bibasilar R > L), Rales (bibasilar ). Negative for: Clear to Auscultation, Respiratory Distress, Accessory Muscle Use, Wheezes, Retracting, Rhonchi Cardiovascular: Positive for: Regular Rate and Rhythm, Normal S1, S2, Peripheal Pulses Present. Negative for: Murmurs Abdomen: Positive for: Normal Bowel Sounds. Negative for: Tenderness, Distention, Peritoneal Signs, Rebound, Guarding Upper Extremity: Positive for: Normal Inspection, NORMAL PULSES, Neurovascularly Intact Lower Extremity: Positive for: NORMAL PULSES, Deformity (right leg shotened and externally rotated ), Neurovascularly Intact, Other (tenderness over b/l hips to palpation). Negative for: Normal Inspection, Normal ROM Neurological: Positive for: CN II-XII Intact, Speech Normal, Motor Func Grossly Intact Skin: Positive for: Warm, Dry, Normal Color. Negative for: Rashes Psychiatric: Positive for: Alert, Oriented x 3 - Medications Active Medications: Active Medications Generic Name Dose Route Start Last Admin Trade Name Freq PRN Reason Stop Dose Admin Acetaminophen 650 mg 08/14/16 23:50 08/15/16 00:15 Tylenol 650mg/20.3ml Solution Ud PO 650 mg Q6H PRN Administration temp.100.4&above;mild pain 1-3 Albuterol/Ipratropium 3 ml 08/16/16 14:00 08/19/16 07:54 Duoneb 3 Mg/0.5 Mg (3 Ml) Ud INH 3 ml RQ6 [place] Administration Digoxin 0.25 mg 08/11/16 18:00 08/18/16 17:21 Lanoxin PO 0.25 mg DAILY@1800 [place] Administration Heparin Sodium (Porcine) 5,000 units 08/15/16 22:00 08/18/16 22:17 Heparin SC 5,000 units Q12 [place] Administration Cefepime HCl 1 gm/ Dextrose 50 mls @ 100 mls/hr 08/14/16 12:00 08/19/16 00:08 IVPB 100 mls/hr Q12H [place] Administration Sodium Chloride 1,000 mls @ 60 mls/hr 08/19/16 07:30 Sodium Chloride 0.9% IV .[id number] [place] Lisinopril 5 mg 08/17/16 10:00 08/18/16 10:18 Zestril PO 5 mg DAILY [place] Administration Methylprednisolone 40 mg 08/18/16 10:00 08/18/16 10:17 Solu-Medrol IV 40 mg DAILY [place] Administration Metoprolol Tartrate 25 mg 08/12/16 18:00 08/18/16 17:19 Lopressor PO 25 mg BID [place] Administration Morphine Sulfate 2 mg 08/14/16 15:36 08/19/16 00:23 Morphine IV 2 mg Q4 PRN Administration Pain, severe (8-10) Pantoprazole Sodium 40 mg 08/19/16 10:00 Protonix Ec Tab PO DAILY [place] - Patient Studies Lab Studies: Microbiology Studies 08/14/16 12:45 Blood Culture - Preliminary Blood-Venous NO GROWTH AFTER 4 DAYS 08/14/16 12:15 Blood Culture - Preliminary Blood-Venous NO GROWTH AFTER 4 DAYS Lab Studies 08/19/16 08/19/16 08/19/16 Range/Units 06:29 06:29 06:29 WBC 13.2 H (4.8-10.8) K/uL RBC 3.21 L (3.80-5.20) Mil/uL Hgb 11.6 (11.0-16.0) g/dL Hct 35.9 (34.0-47.0) % MCV 111.9 H (81.0-99.0) fL MCH 36.2 H (27.0-31.0) pg MCHC 32.3 L (33.0-37.0) g/dL RDW 16.7 H (11.5-14.5) % Plt Count 285 (130-400) K/uL MPV 9.7 (7.2-11.7) fL Neut % (Auto) 88.7 H (50.0-75.0) % Lymph % (Auto) 2.7 L (20.0-40.0) % [place] % (Auto) 8.4 (0.0-10.0) % Eos % (Auto) 0.0 (0.0-4.0) % Baso % (Auto) 0.2 (0.0-2.0) % Neut # 11.7 H (1.8-7.0) K/uL Lymph # 0.4 L (1.0-4.3) K/uL [place] # 1.1 H (0.0-0.8) K/uL Eos # 0.0 (0.0-0.7) K/uL Baso # 0.0 (0.0-0.2) K/uL Differential Comment PT 9.7 (9.7-12.2) SECONDS INR 0.9 APTT 29 (21-34) SECONDS Sodium 136 (132-148) mmol/L Potassium 4.3 (3.6-5.2) mmol/L Chloride 101 (98-107) mmol/L Carbon Dioxide 30 (22-30) mmol/L Anion Gap 10 (10-20) BUN 26 H (7-17) mg/dL Creatinine 0.5 L (0.7-1.2) MG/DL Est GFR ( Amer) > 60 Est GFR (Non-Af Amer) > 60 Random Glucose 103 (65-105) mg/dL Calcium 8.1 L (8.6-10.4) mg/dl Phosphorus 2.5 (2.5-4.5) mg/dL Magnesium 1.9 (1.6-2.3) mg/dL Total Bilirubin 0.4 (0.2-1.3) mg/dL AST 31 (14-36) U/L ALT 47 (9-52) U/L Alkaline Phosphatase 118 (38-126) U/L Total Protein 5.6 L (6.3-8.3) g/dL Albumin 2.7 L (3.5-5.0) g/dL Globulin 2.9 (2.2-3.9) gm/dL Albumin/Globulin Ratio 0.9 L (1.0-2.1) 08/18/16 Range/Units 06:24 WBC (4.8-10.8) K/uL RBC (3.80-5.20) Mil/uL Hgb (11.0-16.0) g/dL Hct (34.0-47.0) % MCV (81.0-99.0) fL MCH (27.0-31.0) pg MCHC (33.0-37.0) g/dL RDW (11.5-14.5) % Plt Count (130-400) K/uL MPV (7.2-11.7) fL Neut % (Auto) (50.0-75.0) % Lymph % (Auto) (20.0-40.0) % [place] % (Auto) (0.0-10.0) % Eos % (Auto) (0.0-4.0) % Baso % (Auto) (0.0-2.0) % Neut # (1.8-7.0) K/uL Lymph # (1.0-4.3) K/uL [place] # (0.0-0.8) K/uL Eos # (0.0-0.7) K/uL Baso # (0.0-0.2) K/uL Differential Comment Cancelled PT (9.7-12.2) SECONDS INR APTT (21-34) SECONDS Sodium (132-148) mmol/L Potassium (3.6-5.2) mmol/L Chloride (98-107) mmol/L Carbon Dioxide (22-30) mmol/L Anion Gap (10-20) BUN (7-17) mg/dL Creatinine (0.7-1.2) MG/DL Est GFR ( Amer) Est GFR (Non-Af Amer) Random Glucose (65-105) mg/dL Calcium (8.6-10.4) mg/dl Phosphorus (2.5-4.5) mg/dL Magnesium (1.6-2.3) mg/dL Total Bilirubin (0.2-1.3) mg/dL AST (14-36) U/L ALT (9-52) U/L Alkaline Phosphatase (38-126) U/L Total Protein (6.3-8.3) g/dL Albumin (3.5-5.0) g/dL Globulin (2.2-3.9) gm/dL Albumin/Globulin Ratio (1.0-2.1) Laboratory Results - last 24 hr 08/18/16 08/19/16 08/19/16 06:24 06:29 06:29 WBC 13.2 H RBC 3.21 L Hgb 11.6 Hct 35.9 MCV 111.9 H MCH 36.2 H MCHC 32.3 L RDW 16.7 H Plt Count 285 MPV 9.7 Neut % (Auto) 88.7 H Lymph % (Auto) 2.7 L [place] % (Auto) 8.4 Eos % (Auto) 0.0 Baso % (Auto) 0.2 Neut # 11.7 H Lymph # 0.4 L [place] # 1.1 H Eos # 0.0 Baso # 0.0 Differential Comment Cancelled PT 9.7 INR 0.9 APTT 29 Sodium Potassium Chloride Carbon Dioxide Anion Gap BUN Creatinine Est GFR ( Amer) Est GFR (Non-Af Amer) Random Glucose Calcium Phosphorus Magnesium Total Bilirubin AST ALT Alkaline Phosphatase Total Protein Albumin Globulin Albumin/Globulin Ratio 08/19/16 06:29 WBC RBC Hgb Hct MCV MCH MCHC RDW Plt Count MPV Neut % (Auto) Lymph % (Auto) [place] % (Auto) Eos % (Auto) Baso % (Auto) Neut # Lymph # [place] # Eos # Baso # Differential Comment PT INR APTT Sodium 136 Potassium 4.3 Chloride 101 Carbon Dioxide 30 Anion Gap 10 BUN 26 H Creatinine 0.5 L Est GFR ( Amer) > 60 Est GFR (Non-Af Amer) > 60 Random Glucose 103 Calcium 8.1 L Phosphorus 2.5 Magnesium 1.9 Total Bilirubin 0.4 AST 31 ALT 47 Alkaline Phosphatase 118 Total Protein 5.6 L Albumin 2.7 L Globulin 2.9 Albumin/Globulin Ratio 0.9 L Review of Systems - Review of Systems Review of Systems: All systems: reviewed and no additional remarkable complaints except - EENT Eyes: absent: Blind Spots, Blurred Vision Ears: absent: Decreased Hearing, Tinnitus Nose/Mouth/Throat: absent: Nasal Congestion, Facial Pain, Neck Pain - Cardiovascular Cardiovascular: absent: Chest Pain, Palpitations, Syncope - Respiratory Respiratory: absent: Cough, Dyspnea, Dyspnea on Exertion - Gastrointestinal Gastrointestinal: absent: Abdominal Pain, Constipation, Diarrhea, Nausea, Vomiting - Genitourinary Genitourinary: absent: Change in Urinary Stream, Difficulty Urinating - Musculoskeletal Musculoskeletal: Arthralgias, Limited Range of Motion, Myalgias - Integumentary Integumentary: absent: Lesions, Rash, Wounds - Neurological Neurological: absent: Sensory Deficit, Syncope, Tingling, Tremor, Vertigo, Weakness - Endocrine Endocrine: absent: Cold Intolorance, Heat Intolorance Critical Care Progress Note - Extremities/Vascular Does the Patient have a Central Venous Catheter?: Yes Insertion Site: RIGHT PICC Does the Patient need a Central Venous Catheter?: Yes Does the Patient have a Jones Catheter?: Yes Does the Patient need a Jones Catheter?: Yes Catheter Insertion Criteria: Patient requires prolonged immobilization - Prophylaxis GI Prophylaxis GI: PPI - Prophylaxis DVT Prophylaxis DVT: Heparin SQ - Nutrition Nutrition: Nutrition Category Date Time Status Liquid Diet [DIET] Diets 08/17/16 Breakfast Active Assessment/Plan (1) Garden grade IV closed subcapital fracture of proximal end of right femur Current Visit: Yes Status: Acute (2) CHF exacerbation Current Visit: Yes Status: Resolved (3) Closed fracture of greater trochanter of left femur Current Visit: Yes Status: Acute (4) Multifocal atrial tachycardia Current Visit: Yes Status: Chronic (5) CHF (NYHA class III, ACC/AHA stage C) Current Visit: Yes Status: Chronic (6) Pleural effusion due to CHF (congestive heart failure) Current Visit: Yes Status: Acute (7) Status post thoracentesis Current Visit: Yes Status: Acute - Assessment and Plan (Free Text) Plan: Patient Status: [place] II- 14 Condition likely to be as stable as it can be prior for OR Dr. Rodriguez for medical risk assessment for surgery Tentative plan for OR tomorrow or morning per Dr. Elena Neuro: -No acute issues -08/15/16 CT Head- No acute intracranial abnormality. Moderate chronic microangiopathic changes and mild age-related global parenchymal volume loss. Cardiovascular: -R PICC Placed yesterday-patient tolerated well -s/p code blue 08/13/16 -metoprolol 25mg po bid -Digoxin 0.25mg PO daily -Lisinopril 5mg po daily -Cardiology Consult- Dr. Peacock- life vest on DC -08/14/16 Echo ordered- severe systolic dysfunction -08/13/16 Cardiac Cath- complete RCA occlusion, good collateral flow from LAD. No stent indicated at this time -08/12/16 EKG- Normal sinus rhythm, normal intervals, normal axis, evidence of anterior wall and inferior wall ischemia- official read pending -08/09/16 Echo- EF 26%, grade I abnormal relaxation pattern, moderate-severe mitral regurgitation, mild pulm HTN Pulmonary: -chest tube placed -sating well; no acute issues -solu-medrol 40mg iv daily -Imaging : 08/19/16 CXR- no interval change. picc line stable. pleural effusions remain present- pending official read. : 08/18/16 CXR- Right-sided PICC extends expected location of the cavoatrial junction. Interval removal of endotracheal tube and nasogastric tube. Increased interstitial markings may reflect infection or edema. Layering left-greater- than-right pleural effusions and associated consolidations. Biapical pleural thickening. Cardiomegaly. Gastrointestinal: -No acute complaints -Full Liquid Diet- Boost Plus TID -encouraged PO liquid intake -Passed swallow Hematology: -No acute issues Endocrine: -No issues Renal: -Hypomagnesemia- replaced with 1g mag IV -Oliguria -NS 60ml/hr Musculoskeletal: -Pain Control- Tylenol 650mg PO q6 PRN, morphine 1mg IV q4 PRN -Dr. Elena on case for orthopedic evaluation- poss OR orr or morning pending medical risk stratification -Doppler US Negative for DVT -Right Garden IV Displaced Subcapital Femoral Neck Fracture -Left Isolated Greater Trochanter Fracture -Imaging -08/08/16 R Knee XR- no acute fracture of dislocation -08/07/16 CT Pelvis- 1. Impacted fracture of the proximal right femur. This appears and involves the neck of the femur. 2. Preserved right femoral acetabular relationship. 3. Destructive process with associated fracture of the greater trochanter left femur. Abundant soft tissue swelling noted. . By history, the patient does not have a known malignancy. -08/07/16 Pelvis XR- Fracture right femoral neck with displacement and mild impaction. Questionable fracture of left greater trochanter. Please correlate clinically and consider further radiographic evaluation. Genitourinary: -No issues -Continue jones catheter Infectious Disease: -cefepime 1g q12- day 6 GI Prophylaxis: Protonix 40mg PO daily DVT Prophylaxis: Lovenox 40mg SC daily Case Discussed with Dr. Zak Grijalva PGY1 - Date & Time Date: 08/19/16 Time: 10:03 <Maurizio Crespo - Last Filed: 08/19/16 18:27> CCU Subjective - Physician Review Critical Care Time Spent (in minutes): 0 CCU Objective - Vital Signs / Intake & Output Vital Signs (Last 4 hours): Vital Signs Pulse Resp BP Pulse Ox 08/19/16 16:03 71 18 134/108 H 100 08/19/16 16:00 84 10 L 08/19/16 15:02 71 14 127/69 08/19/16 15:00 69 14 100 Intake and Output (Last 8hrs): Intake & Output 06/08/19/16 08/19/16 06:59 14:59 22:59 Intake Total 470 685 320 Output Total 165 175 40 Balance 305 510 280 Intake: Intake, IV Amount 50 460 120 Left Femoral TLC Medial 50 460 120 Oral 420 225 200 Output: Urine 165 175 40 Urethral (Jones) 165 175 40 Other: # Bowel Movements 0 0 - Medications Active Medications: Active Medications Generic Name Dose Route Start Last Admin Trade Name Freq PRN Reason Stop Dose Admin Acetaminophen 650 mg 08/14/16 23:50 08/15/16 00:15 Tylenol 650mg/20.3ml Solution Ud PO 650 mg Q6H PRN Administration temp.100.4&above;mild pain 1-3 Albuterol/Ipratropium 3 ml 08/16/16 14:00 08/19/16 14:08 Duoneb 3 Mg/0.5 Mg (3 Ml) Ud INH Not Given RQ6 [place] Digoxin 0.25 mg 08/11/16 18:00 08/18/16 17:21 Lanoxin PO 0.25 mg DAILY@1800 [place] Administration Heparin Sodium (Porcine) 5,000 units 08/15/16 22:00 08/19/16 10:12 Heparin SC 5,000 units Q12 [place] Administration Cefepime HCl 1 gm/ Dextrose 50 mls @ 100 mls/hr 08/14/16 12:00 08/19/16 12:12 IVPB 100 mls/hr Q12H [place] Administration Sodium Chloride 1,000 mls @ 60 mls/hr 08/19/16 07:30 08/19/16 08:05 Sodium Chloride 0.9% IV 60 mls/hr .[id number] [place] Administration Lisinopril 5 mg 08/17/16 10:00 08/19/16 10:13 Zestril PO 5 mg DAILY [place] Administration Methylprednisolone 40 mg 08/18/16 10:00 08/19/16 12:13 Solu-Medrol IV 40 mg DAILY [place] Administration Metoprolol Tartrate 25 mg 08/12/16 18:00 08/19/16 10:12 Lopressor PO 25 mg BID [place] Administration Morphine Sulfate 2 mg 08/14/16 15:36 08/19/16 00:23 Morphine IV 2 mg Q4 PRN Administration Pain, severe (8-10) Pantoprazole Sodium 40 mg 08/19/16 10:00 08/19/16 10:12 Protonix Ec Tab PO 40 mg DAILY [place] Administration - Patient Studies Lab Studies: Microbiology Studies 08/14/16 12:45 Blood Culture - Final Blood-Venous NO GROWTH AFTER 5 DAYS Gram Stain - Final 08/14/16 12:15 Blood Culture - Final Blood-Venous NO GROWTH AFTER 5 DAYS Gram Stain - Final TEST NOT PERFORMED Lab Studies 08/19/16 08/19/16 08/19/16 Range/Units 06:29 06:29 06:29 WBC 13.2 H (4.8-10.8) K/uL RBC 3.21 L (3.80-5.20) Mil/uL Hgb 11.6 (11.0-16.0) g/dL Hct 35.9 (34.0-47.0) % MCV 111.9 H (81.0-99.0) fL MCH 36.2 H (27.0-31.0) pg MCHC 32.3 L (33.0-37.0) g/dL RDW 16.7 H (11.5-14.5) % Plt Count 285 (130-400) K/uL MPV 9.7 (7.2-11.7) fL Neut % (Auto) 88.7 H (50.0-75.0) % Lymph % (Auto) 2.7 L (20.0-40.0) % [place] % (Auto) 8.4 (0.0-10.0) % Eos % (Auto) 0.0 (0.0-4.0) % Baso % (Auto) 0.2 (0.0-2.0) % Neut # 11.7 H (1.8-7.0) K/uL Lymph # 0.4 L (1.0-4.3) K/uL [place] # 1.1 H (0.0-0.8) K/uL Eos # 0.0 (0.0-0.7) K/uL Baso # 0.0 (0.0-0.2) K/uL Neutrophils % (Manual) 94 H (50-75) % Lymphocytes % (Manual) 5 L (20-40) % Monocytes % (Manual) 1 (0-10) % Platelet Estimate Normal (NORMAL) Polychromasia Slight Anisocytosis (manual) Slight Macrocytosis (manual) Moderate PT 9.7 (9.7-12.2) SECONDS INR 0.9 APTT 29 (21-34) SECONDS Sodium 136 (132-148) mmol/L Potassium 4.3 (3.6-5.2) mmol/L Chloride 101 (98-107) mmol/L Carbon Dioxide 30 (22-30) mmol/L Anion Gap 10 (10-20) BUN 26 H (7-17) mg/dL Creatinine 0.5 L (0.7-1.2) MG/DL Est GFR ( Amer) > 60 Est GFR (Non-Af Amer) > 60 Random Glucose 103 (65-105) mg/dL Calcium 8.1 L (8.6-10.4) mg/dl Phosphorus 2.5 (2.5-4.5) mg/dL Magnesium 1.9 (1.6-2.3) mg/dL Total Bilirubin 0.4 (0.2-1.3) mg/dL AST 31 (14-36) U/L ALT 47 (9-52) U/L Alkaline Phosphatase 118 (38-126) U/L Total Protein 5.6 L (6.3-8.3) g/dL Albumin 2.7 L (3.5-5.0) g/dL Globulin 2.9 (2.2-3.9) gm/dL Albumin/Globulin Ratio 0.9 L (1.0-2.1) Laboratory Results - last 24 hr 08/19/16 08/19/16 08/19/16 06:29 06:29 06:29 WBC 13.2 H RBC 3.21 L Hgb 11.6 Hct 35.9 MCV 111.9 H MCH 36.2 H MCHC 32.3 L RDW 16.7 H Plt Count 285 MPV 9.7 Neut % (Auto) 88.7 H Lymph % (Auto) 2.7 L [place] % (Auto) 8.4 Eos % (Auto) 0.0 Baso % (Auto) 0.2 Neut # 11.7 H Lymph # 0.4 L [place] # 1.1 H Eos # 0.0 Baso # 0.0 Neutrophils % (Manual) 94 H Lymphocytes % (Manual) 5 L Monocytes % (Manual) 1 Platelet Estimate Normal Polychromasia Slight Anisocytosis (manual) Slight Macrocytosis (manual) Moderate PT 9.7 INR 0.9 APTT 29 Sodium 136 Potassium 4.3 Chloride 101 Carbon Dioxide 30 Anion Gap 10 BUN 26 H Creatinine 0.5 L Est GFR ( Amer) > 60 Est GFR (Non-Af Amer) > 60 Random Glucose 103 Calcium 8.1 L Phosphorus 2.5 Magnesium 1.9 Total Bilirubin 0.4 AST 31 ALT 47 Alkaline Phosphatase 118 Total Protein 5.6 L Albumin 2.7 L Globulin 2.9 Albumin/Globulin Ratio 0.9 L Critical Care Progress Note - Nutrition Nutrition: Nutrition Category Date Time Status Liquid Diet [DIET] Diets 08/17/16 Breakfast Active Assessment/Plan (1) Acute respiratory failure Current Visit: Yes Status: Resolved Comment: Status post extubation yesterday and comfortable in no respiratory distress Continue diuretics and antibiotics Start feeding (2) CHF exacerbation Current Visit: Yes Status: Resolved (3) Closed fracture of greater trochanter of left femur Current Visit: Yes Status: Acute (4) Garden grade IV closed subcapital fracture of proximal end of right femur Current Visit: Yes Status: Acute Attending/Attestation - Attestation I have personally seen and examined this patient.: Yes I have fully participated in the care of the patient.: Yes I have reviewed all pertinent clinical information: Yes Notes (Text): 08/19/16 18:24 Patient seen and examined in the intensive care unit. Case discussed with house staff in the morning rounds. Status post pigtail catheter insertion for large pleural effusion on the right side Patient alert oriented 3 and in no respiratory distress Seen by cardiology Continue present treatment and follow-up chest x-ray
[2016-08-19 09:37] LABS: ANISOCYTOSIS SLIGHT; LYMPHOCYTE 5 % (20-40); MONOCYTE 1 % (0-10); NEUTROPHIL 94 % (50-75); PLATELET ESTIMATE NORMAL (NORMAL); TOTAL CELLS COUNTED 100
[2016-08-19 09:38] LABS: POLYCHROMIC SLIGHT
[2016-08-19] MEDS: Pantoprazole 40 mg EC Tab PO SCH (10:12)
--- NOTE | 2016-08-19 10:21 | RAD ---
HISTORY: pleural effusion eval COMPARISON: Chest x-ray performed 08/18/16 TECHNIQUE: Chest, one view. FINDINGS: Right PICC extends the cavoatrial junction. LUNGS: Small bilateral pleural effusions associated consolidations. Interstitial prominence may reflect infection or edema. Biapical pleural thickening. No definite pneumothorax. Please note that chest x-ray has limited sensitivity for the detection of pulmonary masses. CARDIOVASCULAR: Cardiomegaly. Atherosclerotic calcifications of the aorta. OSSEOUS STRUCTURES: Osseous demineralization. Degenerative changes of the spine and shoulders. Acromioclavicular arthropathy. VISUALIZED UPPER ABDOMEN: Unremarkable. OTHER FINDINGS: None. IMPRESSION: Small bilateral pleural effusions associated consolidations. Interstitial prominence may reflect infection or edema. Biapical pleural thickening. Cardiomegaly.
--- NOTE | 2016-08-19 11:06 | CP.PCM.PN ---
Subjective - Date & Time of Evaluation Date of Evaluation: 08/19/16 Time of Evaluation: 10:54 - Subjective Subjective: Hip pain controlled. Awaiting medical optimization/clearance Dr. Rodriguez. Objective - Vital Signs/Intake and Output Vital Signs (last 24 hours): Temp Pulse Resp BP Pulse Ox 97.4 F L 78 17 134/79 100 08/19/16 04:00 08/19/16 06:00 08/19/16 06:00 08/19/16 06:02 08/19/16 06:00 Intake and Output: 08/19/16 08/19/16 06:59 18:59 Intake Total 570 0 Output Total 220 20 Balance 350 -20 - Medications Medications: Current Medications Acetaminophen (Tylenol 650mg/20.3ml Solution Ud) 650 mg PO Q6H PRN PRN Reason: temp.100.4&above;mild pain 1-3 Last Admin: 08/15/16 00:15 Dose: 650 mg Albuterol/Ipratropium (Duoneb 3 Mg/0.5 Mg (3 Ml) Ud) 3 ml INH RQ6 [facility] Last Admin: 08/19/16 07:54 Dose: 3 ml Digoxin (Lanoxin) 0.25 mg PO DAILY@1800 [facility] Last Admin: 08/18/16 17:21 Dose: 0.25 mg Heparin Sodium (Porcine) (Heparin) 5,000 units SC Q12 [facility] Last Admin: 08/18/16 22:17 Dose: 5,000 units Cefepime HCl 1 gm/ Dextrose 50 mls @ 100 mls/hr IVPB Q12H [facility] Last Admin: 08/19/16 00:08 Dose: 100 mls/hr Sodium Chloride (Sodium Chloride 0.9%) 1,000 mls @ 60 mls/hr IV .[id number] [facility] Lisinopril (Zestril) 5 mg PO DAILY [facility] Last Admin: 08/18/16 10:18 Dose: 5 mg Methylprednisolone (Solu-Medrol) 40 mg IV DAILY [facility] Last Admin: 08/18/16 10:17 Dose: 40 mg Metoprolol Tartrate (Lopressor) 25 mg PO BID [facility] Last Admin: 08/18/16 17:19 Dose: 25 mg Morphine Sulfate (Morphine) 2 mg IV Q4 PRN PRN Reason: Pain, severe (8-10) Last Admin: 08/19/16 00:23 Dose: 2 mg Pantoprazole Sodium (Protonix Ec Tab) 40 mg PO DAILY [place] - Labs Labs: 08/19/16 06:29 08/19/16 06:29 PT 9.7 SECONDS (9.7-12.2) 08/19/16 06:29 INR 0.9 08/19/16 06:29 APTT 29 SECONDS (21-34) 08/19/16 06:29 - Extremities Exam Additional comments: +ROM ankle/toes, sensation intact, +DP/PT pulses, calves soft NT neg homans, sequentials intact Assessment and Plan (1) Garden grade IV closed subcapital fracture of proximal end of right femur Assessment & Plan: Per Dr. Elena, plan OR for hemiarthroplasty 08/20 or 08/21, awaiting scheduling and clearance T&C cont VTE proph, hold prior to OR Status: Acute (2) Degenerative joint disease of right hip Status: Chronic (3) Closed fracture of greater trochanter of left femur Assessment & Plan: non op Status: Acute
[2016-08-19] MEDS: MethylPREDNISolone 40 mg Vial IV SCH (12:13)
[2016-08-19] MEDS ORDERED: Lidocaine 2% Inj (20ml) IJ ONE (15:45)
--- NOTE | 2016-08-19 16:36 | PCM.PROC ---
Procedures Attestation:: I certify that I have explained the specified Operation(s) or Procedure(s), risks, benefits and reasonable alternatives to the Patient and/or other person responsible. The opportunity was given to ask questions and all questions answered - Chest Tube Chest Tube Location: Lateral Chest Right Size of Tube (cm): 10 (gabonese) Chest Tube Procedure: Chlorhexidine Tube Sutured to Skin: Yes Sterile Dressing Applied: Yes Anesthesia: Lidocaine 1% Volume Anesthetic (mls): 10 Incision Made With: #10 blade Post Procedure: sutured to skin, sterile dressing applied, air occlusive dressing [place] [employer] [place]: Yes Tube Drainage: fluid Amount of Initial Drainage: 300 Post Procedure CXR?: Yes Patient Tolerated Procedure: Yes
--- NOTE | 2016-08-19 18:21 | RAD ---
HISTORY: post pigtail cath insertion COMPARISON: Chest x-ray performed 08/19/16 TECHNIQUE: Chest, one view. FINDINGS: PICC extends the expected location of the SVC. Right-sided pigtail pleural catheter. LUNGS: Small bilateral pleural effusions associated consolidations. Right-sided pleural effusion has decreased slightly since prior study. Interstitial prominence may reflect infection or edema. Biapical pleural thickening. No definite pneumothorax. Approximately 6 mm right lung apex calcification. Please note that chest x-ray has limited sensitivity for the detection of pulmonary masses. CARDIOVASCULAR: Cardiomegaly. Atherosclerotic calcifications of the aorta. OSSEOUS STRUCTURES: Osseous demineralization. Degenerative changes of the spine and shoulders. Acromioclavicular arthropathy. Scoliosis of the thoracolumbar spine convex to the right. VISUALIZED UPPER ABDOMEN: Unremarkable. OTHER FINDINGS: None. IMPRESSION: PICC extends the expected location of the SVC. Right-sided pigtail pleural catheter. Small bilateral pleural effusions associated consolidations. Right-sided pleural effusion has decreased slightly since prior study. Interstitial prominence may reflect infection or edema. Biapical pleural thickening.
[2016-08-19] MEDS: Digoxin 250 mcg (0.25 mg) Tab PO SCH (18:27)
[2016-08-19 19:04] LABS: BODY FLUID TYPE PLEURAL/THORACENTESI
[2016-08-19 19:18] LABS: BF GROSS APPEARANCE CLEAR (CLEAR)
[2016-08-19 20:29] LABS: BODY FLUID MONO/MACROPHAGE 12 % (0-0)
--- NOTE | 2016-08-19 21:11 | CP.PCM.PN ---
Subjective - Date & Time of Evaluation Date of Evaluation: 08/19/16 Time of Evaluation: 17:00 - Subjective Subjective: Patient underwent a right thoracentesis was performed because of a large right pleural effusion. Has no SOB now. VS stable. Objective - Vital Signs/Intake and Output Vital Signs (last 24 hours): Temp Pulse Resp BP Pulse Ox 97.6 F 71 15 135/70 96 08/19/16 17:00 08/19/16 19:02 08/19/16 19:02 08/19/16 19:02 08/19/16 19:02 Intake and Output: 08/19/16 08/20/16 18:59 06:59 Intake Total 1275 Output Total 275 Balance 1000 - Medications Medications: Current Medications Acetaminophen (Tylenol 650mg/20.3ml Solution Ud) 650 mg PO Q6H PRN PRN Reason: temp.100.4&above;mild pain 1-3 Last Admin: 08/15/16 00:15 Dose: 650 mg Albuterol/Ipratropium (Duoneb 3 Mg/0.5 Mg (3 Ml) Ud) 3 ml INH RQ6 [facility] Last Admin: 08/19/16 20:05 Dose: 3 ml Digoxin (Lanoxin) 0.25 mg PO DAILY@1800 [facility] Last Admin: 08/19/16 18:27 Dose: 0.25 mg Heparin Sodium (Porcine) (Heparin) 5,000 units SC Q12 [facility] Last Admin: 08/19/16 10:12 Dose: 5,000 units Cefepime HCl 1 gm/ Dextrose 50 mls @ 100 mls/hr IVPB Q12H [facility] Last Admin: 08/19/16 12:12 Dose: 100 mls/hr Sodium Chloride (Sodium Chloride 0.9%) 1,000 mls @ 60 mls/hr IV .[id number] [facility] Last Admin: 08/19/16 08:05 Dose: 60 mls/hr Lisinopril (Zestril) 5 mg PO DAILY [facility] Last Admin: 08/19/16 10:13 Dose: 5 mg Methylprednisolone (Solu-Medrol) 40 mg IV DAILY [facility] Last Admin: 08/19/16 12:13 Dose: 40 mg Metoprolol Tartrate (Lopressor) 25 mg PO BID [facility] Last Admin: 08/19/16 18:27 Dose: 25 mg Morphine Sulfate (Morphine) 2 mg IV Q4 PRN PRN Reason: Pain, severe (8-10) Last Admin: 08/19/16 20:25 Dose: 2 mg Pantoprazole Sodium (Protonix Ec Tab) 40 mg PO DAILY [place] Last Admin: 08/19/16 10:12 Dose: 40 mg - Labs Labs: 08/19/16 06:29 08/19/16 06:29 PT 9.7 SECONDS (9.7-12.2) 08/19/16 06:29 INR 0.9 08/19/16 06:29 APTT 29 SECONDS (21-34) 08/19/16 06:29 - Constitutional Appears: No Acute Distress, Chronically Ill - Head Exam Head Exam: NORMAL INSPECTION - Eye Exam Eye Exam: Normal appearance - ENT Exam ENT Exam: Normal Exam - Neck Exam Neck Exam: Normal Inspection - Respiratory Exam Additional comments: Rhonchi at both bases. - Cardiovascular Exam Cardiovascular Exam: REGULAR RHYTHM - GI/Abdominal Exam GI & Abdominal Exam: Soft, Normal Bowel Sounds - Rectal Exam Rectal Exam: Deferred - Extremities Exam Additional comments: Tender both hips. External rotation of the right leg. - Back Exam Back Exam: NORMAL INSPECTION - Neurological Exam Neurological Exam: Alert, Awake, Oriented x3 - Psychiatric Exam Psychiatric exam: Anxious - Skin Additional comments: Abrasions over arms and legs. Left joaquín-orbital hematoma. Assessment and Plan (1) Closed fracture of greater trochanter of left femur Status: Acute (2) Dehydration Status: Resolved (3) Sepsis Status: Acute (4) Fall Status: Acute (5) Arrhythmia Status: Acute (6) Contusion of head Status: Acute (7) Garden grade IV closed subcapital fracture of proximal end of right femur Status: Acute (8) CHF exacerbation Status: Resolved (9) Acute respiratory failure Status: Resolved (10) Pleural effusion, right Assessment & Plan: To continue intermittent suction of the right chest pigtail tube. Status: Acute
--- NOTE | 2016-08-19 22:27 | CP.PCM.PN ---
Subjective - Date & Time of Evaluation Date of Evaluation: 08/19/16 Time of Evaluation: 16:00 Objective - Vital Signs/Intake and Output Vital Signs (last 24 hours): Temp Pulse Resp BP Pulse Ox 97.6 F 65 12 147/73 100 08/19/16 17:00 08/19/16 21:02 08/19/16 21:02 08/19/16 21:02 08/19/16 21:00 Intake and Output: 08/19/16 08/20/16 18:59 06:59 Intake Total 1275 Output Total 275 Balance 1000 - Medications Medications: Current Medications Acetaminophen (Tylenol 650mg/20.3ml Solution Ud) 650 mg PO Q6H PRN PRN Reason: temp.100.4&above;mild pain 1-3 Last Admin: 08/15/16 00:15 Dose: 650 mg Albuterol/Ipratropium (Duoneb 3 Mg/0.5 Mg (3 Ml) Ud) 3 ml INH RQ6 [facility] Last Admin: 08/19/16 20:05 Dose: 3 ml Digoxin (Lanoxin) 0.25 mg PO DAILY@1800 [facility] Last Admin: 08/19/16 18:27 Dose: 0.25 mg Heparin Sodium (Porcine) (Heparin) 5,000 units SC Q12 [facility] Last Admin: 08/19/16 10:12 Dose: 5,000 units Cefepime HCl 1 gm/ Dextrose 50 mls @ 100 mls/hr IVPB Q12H [facility] Last Admin: 08/19/16 12:12 Dose: 100 mls/hr Sodium Chloride (Sodium Chloride 0.9%) 1,000 mls @ 60 mls/hr IV .[id number] [facility] Last Admin: 08/19/16 08:05 Dose: 60 mls/hr Lisinopril (Zestril) 5 mg PO DAILY [facility] Last Admin: 08/19/16 10:13 Dose: 5 mg Methylprednisolone (Solu-Medrol) 40 mg IV DAILY [facility] Last Admin: 08/19/16 12:13 Dose: 40 mg Metoprolol Tartrate (Lopressor) 25 mg PO BID [facility] Last Admin: 08/19/16 18:27 Dose: 25 mg Morphine Sulfate (Morphine) 2 mg IV Q4 PRN PRN Reason: Pain, severe (8-10) Last Admin: 08/19/16 20:25 Dose: 2 mg Pantoprazole Sodium (Protonix Ec Tab) 40 mg PO DAILY [place] Last Admin: 08/19/16 10:12 Dose: 40 mg - Labs Labs: 08/19/16 06:29 08/19/16 06:29 PT 9.7 SECONDS (9.7-12.2) 08/19/16 06:29 INR 0.9 08/19/16 06:29 APTT 29 SECONDS (21-34) 08/19/16 06:29 Assessment and Plan (1) CHF exacerbation Status: Resolved
[2016-08-20] MEDS: Sodium Chloride 0.9% 1,000 ML IV SCH ×3 (01:00→16:00)
[2016-08-20] MEDS: Albuterol-Ipratrop 3 mg / 0.5 (3 ml) UD INH SCH ×4 (01:33→20:06)
[2016-08-20 05:59] LABS: BASO % 0.3 % (0.0-2.0); EOS % 0.3 % (0.0-4.0); HEMOGLOBIN 11.9 g/dL (11.0-16.0); LYMPH # 0.4 K/uL (1.0-4.3); LYMPH % 4.2 % (20.0-40.0); MEAN CELL VOLUME 110.7 fL (81.0-99.0); MEAN CORPUSCULAR HEMOGLOBIN 35.8 pg (27.0-31.0); MEAN CORPUSCULAR HGB CONC 32.3 g/dL (33.0-37.0); MEAN PLATELET VOLUME 9.9 fL (7.2-11.7); MONO # 1.2 K/uL (0.0-0.8); MONO % 11.5 % (0.0-10.0); NEUT # 8.6 K/uL (1.8-7.0); NEUT % 83.7 % (50.0-75.0); PLATELET COUNT 284 K/uL (130-400); RBC 3.33 Mil/uL (3.80-5.20); RED CELL DISTRIBUTION WIDTH 16.3 % (11.5-14.5); WHITE BLOOD COUNT 10.3 K/uL (4.8-10.8)
[2016-08-20 06:07] LABS: ALBUMIN 2.4 g/dL (3.5-5.0)
[2016-08-20 06:10] LABS: AST/SGOT 29 U/L (14-36); BLOOD UREA NITROGEN 22 mg/dL (7-17); GFR AFRICAN-AMERICAN > 60; GFR NON-AFRICAN AMERICAN > 60
[2016-08-20 06:11] LABS: ALT/SGPT 54 U/L (9-52); CALCIUM 7.8 mg/dl (8.6-10.4)
[2016-08-20 06:19] LABS: INR 0.9; PROTHROMBIN TIME 10.3 SECONDS (9.7-12.2)
[2016-08-20 06:29] LABS: ALB/GLOB RATIO 0.8 (1.0-2.1)
[2016-08-20 08:25] LABS: LYMPHOCYTE 7 % (20-40); MONOCYTE 5 % (0-10); NEUTROPHIL 88 % (50-75); TOTAL CELLS COUNTED 100
[2016-08-20 08:26] LABS: ANISOCYTOSIS SLIGHT; PLATELET ESTIMATE NORMAL (NORMAL)
[2016-08-20 08:27] LABS: TEARDROP CELLS SLIGHT
--- NOTE | 2016-08-20 09:04 | US ---
Limited right hemithorax ultrasound History: Pleural effusion. Comparison: X-ray dated 08/19/2016 Technique: Limited right hemithorax ultrasound for evaluation of pleural effusion. Findings: Limited ultrasound performed for visualization of a pleural effusion. Moderate right pleural effusion noted. Impression: Limited ultrasound performed for visualization of a pleural effusion. Moderate right pleural effusion noted.
[2016-08-20] MEDS: Pantoprazole 40 mg EC Tab PO SCH (09:44)
[2016-08-20] MEDS: MethylPREDNISolone 40 mg Vial IV SCH (09:45)
--- NOTE | 2016-08-20 10:25 | RAD ---
Chest x-ray single frontal view History: Chest tube evaluation. Comparison: 08/19/2016 Findings: Lines and tubes in stable position. Persistent moderate loculated bilateral pleural effusions. Biapical pleural thickening with upper lobe granulomatous changes. Few scattered nodular densities most prominent at the right lung apex and to a lesser extent right mid lung zone. Consolidative changes the mid to lower lung zones bilaterally. Diffuse chronic interstitial lung markings. Somewhat confluent opacity at the lateral aspect of the right midlung zone. Right hilar prominence. Cardiomegaly. Calcification at the aortic knob. Diffuse osteopenia. Degenerative changes in the spine and shoulders. Impression: Overall no significant interval change.
--- NOTE | 2016-08-20 11:49 | CP.PCM.PN ---
Subjective - Date & Time of Evaluation Date of Evaluation: 08/20/16 Time of Evaluation: 11:46 - Subjective Subjective: Cardiology Progress Note for Dr. Peacock Pt seen and examined at bedside. Pt received PICC line over the weekend. Overnight, pt with no acute events as per nursing. Pt is scheduled to go to the OR tomorrow to fix hip fracture. Objective - Vital Signs/Intake and Output Vital Signs (last 24 hours): Temp Pulse Resp BP Pulse Ox 97.4 F L 83 21 112/56 L 100 08/20/16 08:00 08/20/16 11:03 08/20/16 11:03 08/20/16 10:02 08/20/16 10:02 Intake and Output: 08/20/16 08/20/16 06:59 18:59 Intake Total 960 660 Output Total 600 200 Balance 360 460 - Medications Medications: Current Medications Acetaminophen (Tylenol 650mg/20.3ml Solution Ud) 650 mg PO Q6H PRN PRN Reason: temp.100.4&above;mild pain 1-3 Last Admin: 08/15/16 00:15 Dose: 650 mg Albuterol/Ipratropium (Duoneb 3 Mg/0.5 Mg (3 Ml) Ud) 3 ml INH RQ6 [facility] Last Admin: 08/20/16 08:15 Dose: 3 ml Digoxin (Lanoxin) 0.25 mg PO DAILY@1800 [facility] Last Admin: 08/19/16 18:27 Dose: 0.25 mg Heparin Sodium (Porcine) (Heparin) 5,000 units SC Q12 [facility] Last Admin: 08/20/16 09:45 Dose: 5,000 units Cefepime HCl 1 gm/ Dextrose 50 mls @ 100 mls/hr IVPB Q12H [facility] Last Admin: 08/19/16 23:24 Dose: 100 mls/hr Sodium Chloride (Sodium Chloride 0.9%) 1,000 mls @ 60 mls/hr IV .[id number] [facility] Last Admin: 08/20/16 02:01 Dose: 60 mls/hr Lisinopril (Zestril) 5 mg PO DAILY [facility] Last Admin: 08/20/16 09:44 Dose: 5 mg Methylprednisolone (Solu-Medrol) 40 mg IV DAILY [facility] Last Admin: 08/20/16 09:45 Dose: 40 mg Metoprolol Tartrate (Lopressor) 25 mg PO BID [facility] Last Admin: 08/19/16 18:27 Dose: 25 mg Morphine Sulfate (Morphine) 2 mg IV Q4 PRN PRN Reason: Pain, severe (8-10) Last Admin: 08/20/16 04:22 Dose: 2 mg Pantoprazole Sodium (Protonix Ec Tab) 40 mg PO DAILY [facility] Last Admin: 08/20/16 09:44 Dose: 40 mg - Labs Labs: 08/20/16 05:50 08/20/16 05:50 PT 10.3 SECONDS (9.7-12.2) 08/20/16 05:50 INR 0.9 08/20/16 05:50 APTT 33 SECONDS (21-34) 08/20/16 05:50 - Constitutional Appears: Non-toxic, No Acute Distress - Head Exam Head Exam: ATRAUMATIC, NORMAL INSPECTION, NORMOCEPHALIC - Respiratory Exam Respiratory Exam: Clear to Ausculation Bilateral, NORMAL BREATHING PATTERN - Cardiovascular Exam Cardiovascular Exam: RRR, +S1, +S2 - GI/Abdominal Exam GI & Abdominal Exam: Soft, Normal Bowel Sounds. absent: Tenderness - Extremities Exam Extremities Exam: Tenderness (Upper right leg and left leg) - Neurological Exam Neurological Exam: Alert, Awake - Skin Skin Exam: Normal Color, Warm Assessment and Plan (1) CHF exacerbation Assessment & Plan: CHF exacerbation resolved at this time Pt is high risk for surgery at this time, but is medically optimized Continue current medical management Status: Resolved
--- NOTE | 2016-08-20 12:21 | CP.PCM.PN ---
Subjective - Date & Time of Evaluation Date of Evaluation: 08/20/16 Time of Evaluation: 12:08 - Subjective Subjective: Hip pain controlled. S/p chest tube yesterday for pleural effusion. Objective - Vital Signs/Intake and Output Vital Signs (last 24 hours): Temp Pulse Resp BP Pulse Ox 97.4 F L 83 21 112/56 L 100 08/20/16 08:00 08/20/16 11:03 08/20/16 11:03 08/20/16 10:02 08/20/16 10:02 Intake and Output: 08/20/16 08/20/16 06:59 18:59 Intake Total 960 660 Output Total 600 200 Balance 360 460 - Medications Medications: Current Medications Acetaminophen (Tylenol 650mg/20.3ml Solution Ud) 650 mg PO Q6H PRN PRN Reason: temp.100.4&above;mild pain 1-3 Last Admin: 08/15/16 00:15 Dose: 650 mg Albuterol/Ipratropium (Duoneb 3 Mg/0.5 Mg (3 Ml) Ud) 3 ml INH RQ6 [facility] Last Admin: 08/20/16 08:15 Dose: 3 ml Digoxin (Lanoxin) 0.25 mg PO DAILY@1800 [facility] Last Admin: 08/19/16 18:27 Dose: 0.25 mg Heparin Sodium (Porcine) (Heparin) 5,000 units SC Q12 [facility] Last Admin: 08/20/16 09:45 Dose: 5,000 units Cefepime HCl 1 gm/ Dextrose 50 mls @ 100 mls/hr IVPB Q12H [facility] Last Admin: 08/19/16 23:24 Dose: 100 mls/hr Sodium Chloride (Sodium Chloride 0.9%) 1,000 mls @ 60 mls/hr IV .[id number] [facility] Last Admin: 08/20/16 02:01 Dose: 60 mls/hr Lisinopril (Zestril) 5 mg PO DAILY [facility] Last Admin: 08/20/16 09:44 Dose: 5 mg Methylprednisolone (Solu-Medrol) 40 mg IV DAILY [facility] Last Admin: 08/20/16 09:45 Dose: 40 mg Metoprolol Tartrate (Lopressor) 25 mg PO BID [facility] Last Admin: 08/19/16 18:27 Dose: 25 mg Morphine Sulfate (Morphine) 2 mg IV Q4 PRN PRN Reason: Pain, severe (8-10) Last Admin: 08/20/16 04:22 Dose: 2 mg Pantoprazole Sodium (Protonix Ec Tab) 40 mg PO DAILY [place] Last Admin: 08/20/16 09:44 Dose: 40 mg - Labs Labs: 08/20/16 05:50 08/20/16 05:50 PT 10.3 SECONDS (9.7-12.2) 08/20/16 05:50 INR 0.9 08/20/16 05:50 APTT 33 SECONDS (21-34) 08/20/16 05:50 - Extremities Exam Additional comments: RLE: +ROM ankle/toes, sensation intact, calves soft NT neg homans +DP pulse + sequentials Assessment and Plan (1) Garden grade IV closed subcapital fracture of proximal end of right femur Assessment & Plan: Plan for OR 08/21 @11am T&C cardiology states patient optimized, high risk awaiting Dr. Rodriguez clearance NPO heparin to be held d/w Dr. Elena, agrees with above Status: Acute (2) Degenerative joint disease of right hip Status: Chronic (3) Closed fracture of greater trochanter of left femur Assessment & Plan: non operative Status: Acute
--- NOTE | 2016-08-20 14:57 | CP.CCUPN ---
<Donnell Grijalva - Last Filed: 08/20/16 14:54> CCU Subjective - Physician Review Subjective (Free Text): 08/11/16 15:46 Patient seen and examined at the bedside. No acute distress. No acute events overnight. Nursing staff reports no issues. Patient's pain is controlled with PO tylenol at this point. Morphine added for additional pain control PRN. The patient has an acute exacerbation of CHF and remains medically unfit for OR for TAMARA. The patient denies fever, chills, headache, chest pain, SOB, abdominal pain, N/V/D/C. Today on rounds, the patient was placed on scheduled PO digoxin 0.25mg, and IV morphine 1mg q4 prn was added for additional pain control. The topic of advanced directives was also discussed at length. 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 Under circumstances where recovery to a quality of live that will enable her to care for her is not certain, she wishes no extraordinary measures to be taken. 08/12/16 14:52 Patient seen and examined at the bedside. No acute distress. No acute events overnight. Nursing staff reports no issues. Patient's pain is controlled with PO tylenol and morphine PRN. The patient has been tentatively scheduled for OR at 11:30am with Dr. Elena pending medical risk assessment and clearance. The patient reports continued right leg pain. Per the patient, the pain is adequately controlled. The patient denies fever, chills, headache, chest pain, SOB, abdominal pain, N/V/D/C. Today on rounds, the patient's heparin drip was changed to cardiac protocol. Dr. Peacock was consulted for chronic low ejection systolic heart failure and new onset a-fib. The patient's phosphorous, magnesium, and potassium were replaced. To supplement her diet, Boost was added with all meals and ensure was added one time daily at night. 08/13/16 11:30 Patient seen and examined at the bedside. No acute distress. No acute events overnight. Nursing staff reports no issues. Patient is for cardiac cath with Dr. Cantu today. Patient is in pain this morning. 1 dose of morphine was given with good result. The patient is tentatively scheduled for the OR on with Dr. Elena pending medical risk assessment and stratification. The patient denies fever, chills, headache, chest pain, SOB, abdominal pain, N/V/D/ C. Today on rounds, The patients phosphorous was replaced. Repeat TONY panel and EKG were also ordered for 13:00 t0 trend mildly elevated troponin measurements. 08/14/16 14:28 Patient seen and examined at the bedside. No acute distress. Patient called for code blue at 19:34 last night. Patient was intubated by car pusher at bedside. Patient on PRVC this morning. Central line access left femoral vein. Nursing staff reports no issues. Today on rounds, the patient's presser was changed to levophed from dopamine, lovenox VTE prophylaxis was initiated, tube feeds were started, cerna cultures were sent, and the patients magnesium was replaced. 08/15/16 07:44 Patient seen and examined at the bedside. No acute distress. No acute events overnight. Nursing staff reports no issues. Patient was trialed on CPAP yesterday and tolerated it for a short time. Curently on PRVC (400 / 12 / 60% / 5) The patient is restless this morning. The patient appears more awake this morning. The overnight nursing staff reports that the patient intermittently followed commands. This morning the patient is minimally able to follow commands. Today on rounds, the patient's magnesium was replaced. A ct head and CTA chest were also ordered. 08/18/16 11:02 Patient seen and examined at the bedside. No acute distress. No acute events overnight. Nursing staff reports no issues. The patient has been extubated and is saturating well on her own. The patient has no complaints this morning. The patient's hip pain is well controlled at this point. The patient denies fever, chills, headache, chest pain ,shortness of breath, abdominal pain, N/V/D/ C, changes in bowel/bladder, and extremity paresthesias. Today on rounds, the patient's solumedrol was decreased from q12 to daily. The patient's diet was also advanced. She will be advanced to a heart healthy diet as tolerated. She passed her swallow evaluation this morning. 08/19/16 08:59 Patient seen and examined at the bedside. No acute distress. No acute events overnight. Nursing staff reports no issues. The patient has been extubated and is saturating well on her own. Patient reports pain with re-positioning, but notes requesting morphine for the pain prior to the re-positioning. The patient's hip pain is well controlled at this point. The patient is pending medical risk assessment for surgery. The patient is tentatively scheduled for OR with Dr. Elena tomorrow of . This morning, the patient denies all complaints. The patient denies fever, chills, headache, chest pain, SOB, abdominal pain, N/V/D/C, changes in bowel/bladder and extremity paresthesias. Today on rounds, the patient was started on gentle IVF hydration at 60ml/hr for oliguria. The patient's magnesium was replaced, and a portable CXR was ordered for evaluation of the patient's B/L pleural effusions. 08/19/16 16:28 Post rounds, the patient was consented for bedside chest tube placement for thoracentesis of pleural effusion. 08/20/16 14:54 Patient seen and examined at the bedside. No acute distress. No acute events overnight. Nursing staff reports no issues. The patient tolerated the placement of the right sided chest tube. The patient has remained in stable condition in the ICU. The patient has no acute complaints this morning. The patient denies fever, chills, headache, chest pain, SOB, abdominal pain, N/V/D/C , changes in bowel/bladder and extremity paresthesias. Today on rounds, the patient had a portable AP chest film taken to evaluate the placement of the chest tube. The patient is pending risk assessment by Dr. Rodriguez for OR with Dr. Elena. Critical Care Time Spent (in minutes): 60 CCU Objective - Vital Signs / Intake & Output Vital Signs (Last 4 hours): Vital Signs Temp Pulse Resp BP 08/20/16 13:02 66 15 101/68 08/20/16 12:29 119/64 08/20/16 12:02 71 16 119/64 08/20/16 12:00 97.4 F L 08/20/16 11:10 68 24 106/64 08/20/16 11:03 83 21 Intake and Output (Last 8hrs): Intake & Output 08/19/16 08/20/16 08/20/16 22:59 06:59 14:59 Intake Total 1070 480 860 Output Total 250 450 200 Balance 820 30 660 Intake: Intake, IV Amount 480 480 380 Left Femoral TLC Medial 120 Right PICC 360 480 380 Oral 590 0 480 Output: Chest Tube Drainage 150 Right Upper Anterior 150 Chest Urine 250 300 200 Urethral (Jones) 250 300 200 - Physical Exam Head: Positive for: Normocephalic, Ecchymosis, Other (Contusions over left side of face healing). Negative for: Atraumatic Pupils: Positive for: PERRL Extroacular Muscles: Positive for: EOMI Conjunctiva: Positive for: Normal Mouth: Positive for: Moist Mucous Membranes Neck: Positive for: Normal Range of Motion. Negative for: JVD, Bruit Respiratory/Chest: Positive for: Good Air Exchange, Decreased Breath Sounds ( bibasilar R > L), Rales (bibasilar ). Negative for: Clear to Auscultation, Respiratory Distress, Accessory Muscle Use, Wheezes, Retracting, Rhonchi Cardiovascular: Positive for: Regular Rate and Rhythm, Normal S1, S2, Peripheal Pulses Present. Negative for: Murmurs Abdomen: Positive for: Normal Bowel Sounds. Negative for: Tenderness, Distention, Peritoneal Signs, Rebound, Guarding Upper Extremity: Positive for: Normal Inspection, NORMAL PULSES, Neurovascularly Intact Lower Extremity: Positive for: NORMAL PULSES, Deformity (right leg shotened and externally rotated ), Neurovascularly Intact, Other (tenderness over b/l hips to palpation). Negative for: Normal Inspection, Normal ROM Neurological: Positive for: CN II-XII Intact, Speech Normal, Motor Func Grossly Intact Skin: Positive for: Warm, Dry, Normal Color. Negative for: Rashes Psychiatric: Positive for: Alert, Oriented x 3 - Medications Active Medications: Active Medications Generic Name Dose Route Start Last Admin Trade Name Freq PRN Reason Stop Dose Admin Acetaminophen 650 mg 08/14/16 23:50 08/15/16 00:15 Tylenol 650mg/20.3ml Solution Ud PO 650 mg Q6H PRN Administration temp.100.4&above;mild pain 1-3 Albuterol/Ipratropium 3 ml 08/16/16 14:00 08/20/16 13:45 Duoneb 3 Mg/0.5 Mg (3 Ml) Ud INH 3 ml RQ6 [place] Administration Digoxin 0.25 mg 08/11/16 18:00 08/19/16 18:27 Lanoxin PO 0.25 mg DAILY@1800 [place] Administration Heparin Sodium (Porcine) 5,000 units 08/15/16 22:00 08/20/16 09:45 Heparin SC 5,000 units Q12 [place] Administration Cefepime HCl 1 gm/ Dextrose 50 mls @ 100 mls/hr 08/14/16 12:00 08/20/16 12:27 IVPB 100 mls/hr Q12H [place] Administration Sodium Chloride 1,000 mls @ 60 mls/hr 08/19/16 07:30 08/20/16 02:01 Sodium Chloride 0.9% IV 60 mls/hr .[id number] [place] Administration Lisinopril 5 mg 08/17/16 10:00 08/20/16 09:44 Zestril PO 5 mg DAILY [place] Administration Methylprednisolone 40 mg 08/18/16 10:00 08/20/16 09:45 Solu-Medrol IV 40 mg DAILY [place] Administration Metoprolol Tartrate 25 mg 08/12/16 18:00 08/20/16 12:29 Lopressor PO 25 mg BID [place] Administration Morphine Sulfate 2 mg 08/14/16 15:36 08/20/16 04:22 Morphine IV 2 mg Q4 PRN Administration Pain, severe (8-10) Pantoprazole Sodium 40 mg 08/19/16 10:00 08/20/16 09:44 Protonix Ec Tab PO 40 mg DAILY [place] Administration - Patient Studies Lab Studies: Microbiology Studies 08/19/16 18:27 Gram Stain - Final Pleural Fluid Body Fluid Culture - Preliminary NO GROWTH AFTER 24 HOURS 08/14/16 12:45 Blood Culture - Final Blood-Venous NO GROWTH AFTER 5 DAYS Gram Stain - Final 08/14/16 12:15 Blood Culture - Final Blood-Venous NO GROWTH AFTER 5 DAYS Gram Stain - Final TEST NOT PERFORMED Lab Studies 08/20/16 08/20/16 08/20/16 Range/Units 11:08 05:50 05:50 WBC (4.8-10.8) K/uL RBC (3.80-5.20) Mil/uL Hgb (11.0-16.0) g/dL Hct (34.0-47.0) % MCV (81.0-99.0) fL MCH (27.0-31.0) pg MCHC (33.0-37.0) g/dL RDW (11.5-14.5) % Plt Count (130-400) K/uL MPV (7.2-11.7) fL Neut % (Auto) (50.0-75.0) % Lymph % (Auto) (20.0-40.0) % [place] % (Auto) (0.0-10.0) % Eos % (Auto) (0.0-4.0) % Baso % (Auto) (0.0-2.0) % Neut # (1.8-7.0) K/uL Lymph # (1.0-4.3) K/uL [place] # (0.0-0.8) K/uL Eos # (0.0-0.7) K/uL Baso # (0.0-0.2) K/uL Neutrophils % (Manual) (50-75) % Lymphocytes % (Manual) (20-40) % Monocytes % (Manual) (0-10) % Platelet Estimate (NORMAL) Anisocytosis (manual) Macrocytosis (manual) Tear Drop Cells PT 10.3 (9.7-12.2) SECONDS INR 0.9 APTT 33 (21-34) SECONDS Sodium 131 L (132-148) mmol/L Potassium 4.7 (3.6-5.2) mmol/L Chloride 97 L (98-107) mmol/L Carbon Dioxide 30 (22-30) mmol/L Anion Gap 9 L (10-20) BUN 22 H (7-17) mg/dL Creatinine 0.5 L (0.7-1.2) MG/DL Est GFR ( Amer) > 60 Est GFR (Non-Af Amer) > 60 Random Glucose 77 (65-105) mg/dL Calcium 7.8 L (8.6-10.4) mg/dl Phosphorus 2.5 (2.5-4.5) mg/dL Magnesium 2.0 (1.6-2.3) mg/dL Total Bilirubin 0.5 (0.2-1.3) mg/dL AST 29 (14-36) U/L ALT 54 H (9-52) U/L Alkaline Phosphatase 131 H (38-126) U/L Total Protein 5.6 L (6.3-8.3) g/dL Albumin 2.4 L (3.5-5.0) g/dL Globulin 3.2 (2.2-3.9) gm/dL Albumin/Globulin Ratio 0.8 L (1.0-2.1) Fluid Source Fluid Appearance (CLEAR) Fluid WBC (0.0-300.0) /mm3 Fluid RBC (0.0-0.0) /mm3 Fluid Tot Cell Count Fluid Neutrophils (0-0) % Fluid Lymphocytes (0-0) % Fld Monocyte/Macrophag (0-0) % Fluid Comment Blood Type B POSITIVE Antibody Screen Negative 08/20/16 08/19/16 Range/Units 05:50 19:02 WBC 10.3 (4.8-10.8) K/uL RBC 3.33 L (3.80-5.20) Mil/uL Hgb 11.9 (11.0-16.0) g/dL Hct 36.9 (34.0-47.0) % MCV 110.7 H (81.0-99.0) fL MCH 35.8 H (27.0-31.0) pg MCHC 32.3 L (33.0-37.0) g/dL RDW 16.3 H (11.5-14.5) % Plt Count 284 (130-400) K/uL MPV 9.9 (7.2-11.7) fL Neut % (Auto) 83.7 H (50.0-75.0) % Lymph % (Auto) 4.2 L (20.0-40.0) % [place] % (Auto) 11.5 H (0.0-10.0) % Eos % (Auto) 0.3 (0.0-4.0) % Baso % (Auto) 0.3 (0.0-2.0) % Neut # 8.6 H (1.8-7.0) K/uL Lymph # 0.4 L (1.0-4.3) K/uL [place] # 1.2 H (0.0-0.8) K/uL Eos # 0.0 (0.0-0.7) K/uL Baso # 0.0 (0.0-0.2) K/uL Neutrophils % (Manual) 88 H (50-75) % Lymphocytes % (Manual) 7 L (20-40) % Monocytes % (Manual) 5 (0-10) % Platelet Estimate Normal (NORMAL) Anisocytosis (manual) Slight Macrocytosis (manual) Slight Tear Drop Cells Slight PT (9.7-12.2) SECONDS INR APTT (21-34) SECONDS Sodium (132-148) mmol/L Potassium (3.6-5.2) mmol/L Chloride (98-107) mmol/L Carbon Dioxide (22-30) mmol/L Anion Gap (10-20) BUN (7-17) mg/dL Creatinine (0.7-1.2) MG/DL Est GFR ( Amer) Est GFR (Non-Af Amer) Random Glucose (65-105) mg/dL Calcium (8.6-10.4) mg/dl Phosphorus (2.5-4.5) mg/dL Magnesium (1.6-2.3) mg/dL Total Bilirubin (0.2-1.3) mg/dL AST (14-36) U/L ALT (9-52) U/L Alkaline Phosphatase (38-126) U/L Total Protein (6.3-8.3) g/dL Albumin (3.5-5.0) g/dL Globulin (2.2-3.9) gm/dL Albumin/Globulin Ratio (1.0-2.1) Fluid Source Pleural/thoracentesi Fluid Appearance Clear (CLEAR) Fluid WBC 12.0 (0.0-300.0) /mm3 Fluid RBC 210.0 H (0.0-0.0) /mm3 Fluid Tot Cell Count TEST NOT PERFORMED Fluid Neutrophils 25.0 H (0-0) % Fluid Lymphocytes 63.0 H (0-0) % Fld Monocyte/Macrophag 12 H (0-0) % Fluid Comment Blood Type Antibody Screen Laboratory Results - last 24 hr 08/19/16 08/20/16 08/20/16 19:02 05:50 05:50 WBC 10.3 RBC 3.33 L Hgb 11.9 Hct 36.9 MCV 110.7 H MCH 35.8 H MCHC 32.3 L RDW 16.3 H Plt Count 284 MPV 9.9 Neut % (Auto) 83.7 H Lymph % (Auto) 4.2 L [place] % (Auto) 11.5 H Eos % (Auto) 0.3 Baso % (Auto) 0.3 Neut # 8.6 H Lymph # 0.4 L [place] # 1.2 H Eos # 0.0 Baso # 0.0 Neutrophils % (Manual) 88 H Lymphocytes % (Manual) 7 L Monocytes % (Manual) 5 Platelet Estimate Normal Anisocytosis (manual) Slight Macrocytosis (manual) Slight Tear Drop Cells Slight PT 10.3 INR 0.9 APTT 33 Sodium Potassium Chloride Carbon Dioxide Anion Gap BUN Creatinine Est GFR ( Amer) Est GFR (Non-Af Amer) Random Glucose Calcium Phosphorus Magnesium Total Bilirubin AST ALT Alkaline Phosphatase Total Protein Albumin Globulin Albumin/Globulin Ratio Fluid Source Pleural/thoracentesi Fluid Appearance Clear Fluid WBC 12.0 Fluid RBC 210.0 H Fluid Tot Cell Count TEST NOT PERFORMED Fluid Neutrophils 25.0 H Fluid Lymphocytes 63.0 H Fld Monocyte/Macrophag 12 H Fluid Comment Blood Type Antibody Screen 08/20/16 08/20/16 05:50 11:08 WBC RBC Hgb Hct MCV MCH MCHC RDW Plt Count MPV Neut % (Auto) Lymph % (Auto) [place] % (Auto) Eos % (Auto) Baso % (Auto) Neut # Lymph # [place] # Eos # Baso # Neutrophils % (Manual) Lymphocytes % (Manual) Monocytes % (Manual) Platelet Estimate Anisocytosis (manual) Macrocytosis (manual) Tear Drop Cells PT INR APTT Sodium 131 L Potassium 4.7 Chloride 97 L Carbon Dioxide 30 Anion Gap 9 L BUN 22 H Creatinine 0.5 L Est GFR ( Amer) > 60 Est GFR (Non-Af Amer) > 60 Random Glucose 77 Calcium 7.8 L Phosphorus 2.5 Magnesium 2.0 Total Bilirubin 0.5 AST 29 ALT 54 H Alkaline Phosphatase 131 H Total Protein 5.6 L Albumin 2.4 L Globulin 3.2 Albumin/Globulin Ratio 0.8 L Fluid Source Fluid Appearance Fluid WBC Fluid RBC Fluid Tot Cell Count Fluid Neutrophils Fluid Lymphocytes Fld Monocyte/Macrophag Fluid Comment Blood Type B POSITIVE Antibody Screen Negative Review of Systems - Review of Systems Review of Systems: All systems: reviewed and no additional remarkable complaints except - EENT Eyes: absent: Blind Spots, Blurred Vision Ears: absent: Decreased Hearing, Tinnitus Nose/Mouth/Throat: absent: Nasal Congestion, Facial Pain, Neck Pain - Cardiovascular Cardiovascular: absent: Chest Pain, Palpitations, Syncope - Respiratory Respiratory: absent: Cough, Dyspnea, Dyspnea on Exertion - Gastrointestinal Gastrointestinal: absent: Abdominal Pain, Constipation, Diarrhea, Nausea, Vomiting - Genitourinary Genitourinary: absent: Change in Urinary Stream, Difficulty Urinating - Musculoskeletal Musculoskeletal: Arthralgias, Limited Range of Motion, Myalgias - Integumentary Integumentary: absent: Lesions, Rash, Wounds - Neurological Neurological: absent: Sensory Deficit, Syncope, Tingling, Tremor, Vertigo, Weakness - Endocrine Endocrine: absent: Cold Intolorance, Heat Intolorance Critical Care Progress Note - Extremities/Vascular Does the Patient have a Central Venous Catheter?: Yes Insertion Site: R PICC Does the Patient need a Central Venous Catheter?: Yes Does the Patient have a Jones Catheter?: Yes Does the Patient need a Jones Catheter?: Yes Catheter Insertion Criteria: Patient requires prolonged immobilization - Prophylaxis GI Prophylaxis GI: PPI - Prophylaxis DVT Prophylaxis DVT: Heparin SQ - Nutrition Nutrition: Nutrition Category Date Time Status Liquid Diet [DIET] Diets 08/17/16 Breakfast Active Assessment/Plan (1) Garden grade IV closed subcapital fracture of proximal end of right femur Current Visit: Yes Status: Acute (2) CHF exacerbation Current Visit: Yes Status: Resolved (3) Closed fracture of greater trochanter of left femur Current Visit: Yes Status: Acute (4) Multifocal atrial tachycardia Current Visit: Yes Status: Chronic (5) CHF (NYHA class III, ACC/AHA stage C) Current Visit: Yes Status: Chronic (6) Pleural effusion due to CHF (congestive heart failure) Current Visit: Yes Status: Acute (7) Status post thoracentesis Current Visit: Yes Status: Acute - Assessment and Plan (Free Text) Plan: Patient Status: [place] II- 14 From ICU Standpoint, Patient is HIGH RISK for surgery Dr. Rodriguez for medical risk assessment for surgery Tentative plan for per Dr. Elena Neuro: -No acute issues -08/15/16 CT Head- No acute intracranial abnormality. Moderate chronic microangiopathic changes and mild age-related global parenchymal volume loss. Cardiovascular: -R PICC for access placed 08/18/16 -s/p code blue 08/13/16 -metoprolol 25mg po bid -Digoxin 0.25mg PO daily -Lisinopril 5mg po daily -Cardiology Consult- Dr. Voudouris- life vest on DC -08/14/16 Echo ordered- severe systolic dysfunction -08/13/16 Cardiac Cath- complete RCA occlusion, good collateral flow from LAD. No stent indicated at this time -08/12/16 EKG- Normal sinus rhythm, normal intervals, normal axis, evidence of anterior wall and inferior wall ischemia- official read pending -08/09/16 Echo- EF 26%, grade I abnormal relaxation pattern, moderate-severe mitral regurgitation, mild pulm HTN Pulmonary: -chest tube- 150cc -sating well; no acute issues -solu-medrol 40mg iv daily -Imaging : 08/20/16 CXR- no significant interval change : 08/19/16 CXR- no interval change. picc line stable. pleural effusions remain present- pending official read. : 08/18/16 CXR- Right-sided PICC extends expected location of the cavoatrial junction. Interval removal of endotracheal tube and nasogastric tube. Increased interstitial markings may reflect infection or edema. Layering left-greater- than-right pleural effusions and associated consolidations. Biapical pleural thickening. Cardiomegaly. Gastrointestinal: -No acute complaints -Reg heart healthy, mod carb diet + Boost Plus TID -encouraged PO liquid intake -Passed swallow Hematology: -No acute issues Endocrine: -No issues Renal: -no issues Musculoskeletal: -Pain Control- Tylenol 650mg PO q6 PRN, morphine 1mg IV q4 PRN -Dr. Elena on case for orthopedic evaluation- OR morning pending medical risk stratification (HIGH RISK from ICU standpoint) -Doppler US Negative for DVT -Right Garden IV Displaced Subcapital Femoral Neck Fracture -Left Isolated Greater Trochanter Fracture -Imaging -08/08/16 R Knee XR- no acute fracture of dislocation -08/07/16 CT Pelvis- 1. Impacted fracture of the proximal right femur. This appears and involves the neck of the femur. 2. Preserved right femoral acetabular relationship. 3. Destructive process with associated fracture of the greater trochanter left femur. Abundant soft tissue swelling noted. . By history, the patient does not have a known malignancy. -08/07/16 Pelvis XR- Fracture right femoral neck with displacement and mild impaction. Questionable fracture of left greater trochanter. Please correlate clinically and consider further radiographic evaluation. Genitourinary: -No issues -Continue jones catheter Infectious Disease: -cefepime 1g q12- day 7 GI Prophylaxis: Protonix 40mg PO daily DVT Prophylaxis: Lovenox 40mg SC daily Case Discussed with Dr. Zak Grijalva PGY1 - Date & Time Date: 08/20/16 Time: 15:01 <Maurizio Crespo - Last Filed: 08/20/16 16:50> CCU Subjective - Physician Review Critical Care Time Spent (in minutes): 30 CCU Objective - Vital Signs / Intake & Output Vital Signs (Last 4 hours): Vital Signs Pulse Resp BP 08/20/16 14:02 54 L 13 135/66 08/20/16 13:02 66 15 101/68 Intake and Output (Last 8hrs): Intake & Output 08/20/16 08/20/16 08/20/16 06:59 14:59 22:59 Intake Total 480 1180 60 Output Total 450 315 35 Balance 30 865 25 Intake: Intake, IV Amount 480 500 60 Right PICC 480 500 60 Oral 0 680 Output: Chest Tube Drainage 150 Right Upper Anterior 150 Chest Urine 300 315 35 Urethral (Jones) 300 315 35 - Medications Active Medications: Active Medications Generic Name Dose Route Start Last Admin Trade Name Freq PRN Reason Stop Dose Admin Acetaminophen 650 mg 08/14/16 23:50 08/15/16 00:15 Tylenol 650mg/20.3ml Solution Ud PO 650 mg Q6H PRN Administration temp.100.4&above;mild pain 1-3 Albuterol/Ipratropium 3 ml 08/16/16 14:00 08/20/16 13:45 Duoneb 3 Mg/0.5 Mg (3 Ml) Ud INH 3 ml RQ6 [place] Administration Digoxin 0.25 mg 08/11/16 18:00 08/19/16 18:27 Lanoxin PO 0.25 mg DAILY@1800 [place] Administration Heparin Sodium (Porcine) 5,000 units 08/15/16 22:00 08/20/16 09:45 Heparin SC 5,000 units Q12 [place] Administration Cefepime HCl 1 gm/ Dextrose 50 mls @ 100 mls/hr 08/14/16 12:00 08/20/16 12:27 IVPB 100 mls/hr Q12H [place] Administration Sodium Chloride 1,000 mls @ 60 mls/hr 08/19/16 07:30 08/20/16 02:01 Sodium Chloride 0.9% IV 60 mls/hr .[id number] [place] Administration Lisinopril 5 mg 08/17/16 10:00 08/20/16 09:44 Zestril PO 5 mg DAILY [place] Administration Methylprednisolone 40 mg 08/18/16 10:00 08/20/16 09:45 Solu-Medrol IV 40 mg DAILY [place] Administration Metoprolol Tartrate 25 mg 08/12/16 18:00 08/20/16 12:29 Lopressor PO 25 mg BID [place] Administration Morphine Sulfate 2 mg 08/14/16 15:36 08/20/16 04:22 Morphine IV 2 mg Q4 PRN Administration Pain, severe (8-10) Pantoprazole Sodium 40 mg 08/19/16 10:00 08/20/16 09:44 Protonix Ec Tab PO 40 mg DAILY [place] Administration - Patient Studies Lab Studies: Microbiology Studies 08/19/16 18:27 Gram Stain - Final Pleural Fluid Body Fluid Culture - Preliminary NO GROWTH AFTER 24 HOURS 08/14/16 12:45 Blood Culture - Final Blood-Venous NO GROWTH AFTER 5 DAYS Gram Stain - Final 08/14/16 12:15 Blood Culture - Final Blood-Venous NO GROWTH AFTER 5 DAYS Gram Stain - Final TEST NOT PERFORMED Lab Studies 08/20/16 08/20/16 08/20/16 Range/Units 11:08 05:50 05:50 WBC (4.8-10.8) K/uL RBC (3.80-5.20) Mil/uL Hgb (11.0-16.0) g/dL Hct (34.0-47.0) % MCV (81.0-99.0) fL MCH (27.0-31.0) pg MCHC (33.0-37.0) g/dL RDW (11.5-14.5) % Plt Count (130-400) K/uL MPV (7.2-11.7) fL Neut % (Auto) (50.0-75.0) % Lymph % (Auto) (20.0-40.0) % [place] % (Auto) (0.0-10.0) % Eos % (Auto) (0.0-4.0) % Baso % (Auto) (0.0-2.0) % Neut # (1.8-7.0) K/uL Lymph # (1.0-4.3) K/uL [place] # (0.0-0.8) K/uL Eos # (0.0-0.7) K/uL Baso # (0.0-0.2) K/uL Neutrophils % (Manual) (50-75) % Lymphocytes % (Manual) (20-40) % Monocytes % (Manual) (0-10) % Platelet Estimate (NORMAL) Anisocytosis (manual) Macrocytosis (manual) Tear Drop Cells PT 10.3 (9.7-12.2) SECONDS INR 0.9 APTT 33 (21-34) SECONDS Sodium 131 L (132-148) mmol/L Potassium 4.7 (3.6-5.2) mmol/L Chloride 97 L (98-107) mmol/L Carbon Dioxide 30 (22-30) mmol/L Anion Gap 9 L (10-20) BUN 22 H (7-17) mg/dL Creatinine 0.5 L (0.7-1.2) MG/DL Est GFR ( Amer) > 60 Est GFR (Non-Af Amer) > 60 Random Glucose 77 (65-105) mg/dL Calcium 7.8 L (8.6-10.4) mg/dl Phosphorus 2.5 (2.5-4.5) mg/dL Magnesium 2.0 (1.6-2.3) mg/dL Total Bilirubin 0.5 (0.2-1.3) mg/dL AST 29 (14-36) U/L ALT 54 H (9-52) U/L Alkaline Phosphatase 131 H (38-126) U/L Total Protein 5.6 L (6.3-8.3) g/dL Albumin 2.4 L (3.5-5.0) g/dL Globulin 3.2 (2.2-3.9) gm/dL Albumin/Globulin Ratio 0.8 L (1.0-2.1) Fluid Source Fluid Appearance (CLEAR) Fluid WBC (0.0-300.0) /mm3 Fluid RBC (0.0-0.0) /mm3 Fluid Tot Cell Count Fluid Neutrophils (0-0) % Fluid Lymphocytes (0-0) % Fld Monocyte/Macrophag (0-0) % Fluid Comment Blood Type B POSITIVE Antibody Screen Negative 08/20/16 08/19/16 Range/Units 05:50 19:02 WBC 10.3 (4.8-10.8) K/uL RBC 3.33 L (3.80-5.20) Mil/uL Hgb 11.9 (11.0-16.0) g/dL Hct 36.9 (34.0-47.0) % MCV 110.7 H (81.0-99.0) fL MCH 35.8 H (27.0-31.0) pg MCHC 32.3 L (33.0-37.0) g/dL RDW 16.3 H (11.5-14.5) % Plt Count 284 (130-400) K/uL MPV 9.9 (7.2-11.7) fL Neut % (Auto) 83.7 H (50.0-75.0) % Lymph % (Auto) 4.2 L (20.0-40.0) % [place] % (Auto) 11.5 H (0.0-10.0) % Eos % (Auto) 0.3 (0.0-4.0) % Baso % (Auto) 0.3 (0.0-2.0) % Neut # 8.6 H (1.8-7.0) K/uL Lymph # 0.4 L (1.0-4.3) K/uL [place] # 1.2 H (0.0-0.8) K/uL Eos # 0.0 (0.0-0.7) K/uL Baso # 0.0 (0.0-0.2) K/uL Neutrophils % (Manual) 88 H (50-75) % Lymphocytes % (Manual) 7 L (20-40) % Monocytes % (Manual) 5 (0-10) % Platelet Estimate Normal (NORMAL) Anisocytosis (manual) Slight Macrocytosis (manual) Slight Tear Drop Cells Slight PT (9.7-12.2) SECONDS INR APTT (21-34) SECONDS Sodium (132-148) mmol/L Potassium (3.6-5.2) mmol/L Chloride (98-107) mmol/L Carbon Dioxide (22-30) mmol/L Anion Gap (10-20) BUN (7-17) mg/dL Creatinine (0.7-1.2) MG/DL Est GFR ( Amer) Est GFR (Non-Af Amer) Random Glucose (65-105) mg/dL Calcium (8.6-10.4) mg/dl Phosphorus (2.5-4.5) mg/dL Magnesium (1.6-2.3) mg/dL Total Bilirubin (0.2-1.3) mg/dL AST (14-36) U/L ALT (9-52) U/L Alkaline Phosphatase (38-126) U/L Total Protein (6.3-8.3) g/dL Albumin (3.5-5.0) g/dL Globulin (2.2-3.9) gm/dL Albumin/Globulin Ratio (1.0-2.1) Fluid Source Pleural/thoracentesi Fluid Appearance Clear (CLEAR) Fluid WBC 12.0 (0.0-300.0) /mm3 Fluid RBC 210.0 H (0.0-0.0) /mm3 Fluid Tot Cell Count TEST NOT PERFORMED Fluid Neutrophils 25.0 H (0-0) % Fluid Lymphocytes 63.0 H (0-0) % Fld Monocyte/Macrophag 12 H (0-0) % Fluid Comment Blood Type Antibody Screen Laboratory Results - last 24 hr 08/19/16 08/20/16 08/20/16 19:02 05:50 05:50 WBC 10.3 RBC 3.33 L Hgb 11.9 Hct 36.9 MCV 110.7 H MCH 35.8 H MCHC 32.3 L RDW 16.3 H Plt Count 284 MPV 9.9 Neut % (Auto) 83.7 H Lymph % (Auto) 4.2 L [place] % (Auto) 11.5 H Eos % (Auto) 0.3 Baso % (Auto) 0.3 Neut # 8.6 H Lymph # 0.4 L [place] # 1.2 H Eos # 0.0 Baso # 0.0 Neutrophils % (Manual) 88 H Lymphocytes % (Manual) 7 L Monocytes % (Manual) 5 Platelet Estimate Normal Anisocytosis (manual) Slight Macrocytosis (manual) Slight Tear Drop Cells Slight PT 10.3 INR 0.9 APTT 33 Sodium Potassium Chloride Carbon Dioxide Anion Gap BUN Creatinine Est GFR ( Amer) Est GFR (Non-Af Amer) Random Glucose Calcium Phosphorus Magnesium Total Bilirubin AST ALT Alkaline Phosphatase Total Protein Albumin Globulin Albumin/Globulin Ratio Fluid Source Pleural/thoracentesi Fluid Appearance Clear Fluid WBC 12.0 Fluid RBC 210.0 H Fluid Tot Cell Count TEST NOT PERFORMED Fluid Neutrophils 25.0 H Fluid Lymphocytes 63.0 H Fld Monocyte/Macrophag 12 H Fluid Comment Blood Type Antibody Screen 08/20/16 08/20/16 05:50 11:08 WBC RBC Hgb Hct MCV MCH MCHC RDW Plt Count MPV Neut % (Auto) Lymph % (Auto) [place] % (Auto) Eos % (Auto) Baso % (Auto) Neut # Lymph # [place] # Eos # Baso # Neutrophils % (Manual) Lymphocytes % (Manual) Monocytes % (Manual) Platelet Estimate Anisocytosis (manual) Macrocytosis (manual) Tear Drop Cells PT INR APTT Sodium 131 L Potassium 4.7 Chloride 97 L Carbon Dioxide 30 Anion Gap 9 L BUN 22 H Creatinine 0.5 L Est GFR ( Amer) > 60 Est GFR (Non-Af Amer) > 60 Random Glucose 77 Calcium 7.8 L Phosphorus 2.5 Magnesium 2.0 Total Bilirubin 0.5 AST 29 ALT 54 H Alkaline Phosphatase 131 H Total Protein 5.6 L Albumin 2.4 L Globulin 3.2 Albumin/Globulin Ratio 0.8 L Fluid Source Fluid Appearance Fluid WBC Fluid RBC Fluid Tot Cell Count Fluid Neutrophils Fluid Lymphocytes Fld Monocyte/Macrophag Fluid Comment Blood Type B POSITIVE Antibody Screen Negative Critical Care Progress Note - Nutrition Nutrition: Nutrition Category Date Time Status Heart Healthy Diet [DIET] Diets 08/20/16 Dinner Active Assessment/Plan (1) Acute respiratory failure Current Visit: Yes Status: Resolved Comment: Status post extubation yesterday and comfortable in no respiratory distress Continue diuretics and antibiotics Start feeding (2) CHF exacerbation Current Visit: Yes Status: Resolved (3) Closed fracture of greater trochanter of left femur Current Visit: Yes Status: Acute (4) Garden grade IV closed subcapital fracture of proximal end of right femur Current Visit: Yes Status: Acute Attending/Attestation - Attestation I have personally seen and examined this patient.: Yes I have fully participated in the care of the patient.: Yes I have reviewed all pertinent clinical information: Yes Notes (Text): 08/20/16 16:47 Patient seen and examined in the intensive care unit. Case discussed with house staff in the morning rounds. Sitting comfortably in no acute distress with right pigtail catheter in place draining serous fluid Patient states breathing is much improved Afebrile Patient is high-risk for surgery from critical care point of view
[2016-08-20] MEDS: Digoxin 250 mcg (0.25 mg) Tab PO SCH (19:16)
--- NOTE | 2016-08-20 23:27 | CP.PCM.PN ---
Subjective - Date & Time of Evaluation Date of Evaluation: 08/20/16 Time of Evaluation: 20:45 - Subjective Subjective: Patient has no complaint of SOB or chest pain. Appetite better. Right chest tube still draining. Will clear patient for right hip replacement when chest tube is removed. Objective - Vital Signs/Intake and Output Vital Signs (last 24 hours): Temp Pulse Resp BP Pulse Ox 98.1 F 87 16 134/51 L 95 08/20/16 16:00 08/20/16 20:03 08/20/16 20:03 08/20/16 20:03 08/20/16 16:00 Intake and Output: 08/20/16 08/21/16 18:59 06:59 Intake Total 1660 60 Output Total 680 50 Balance 980 10 - Medications Medications: Current Medications Acetaminophen (Tylenol 650mg/20.3ml Solution Ud) 650 mg PO Q6H PRN PRN Reason: temp.100.4&above;mild pain 1-3 Last Admin: 08/15/16 00:15 Dose: 650 mg Albuterol/Ipratropium (Duoneb 3 Mg/0.5 Mg (3 Ml) Ud) 3 ml INH RQ6 [facility] Last Admin: 08/20/16 20:06 Dose: 3 ml Digoxin (Lanoxin) 0.25 mg PO DAILY@1800 [facility] Last Admin: 08/20/16 19:16 Dose: 0.25 mg Heparin Sodium (Porcine) (Heparin) 5,000 units SC Q12 [facility] Last Admin: 08/20/16 09:45 Dose: 5,000 units Cefepime HCl 1 gm/ Dextrose 50 mls @ 100 mls/hr IVPB Q12H [facility] Last Admin: 08/20/16 12:27 Dose: 100 mls/hr Sodium Chloride (Sodium Chloride 0.9%) 1,000 mls @ 60 mls/hr IV .[id number] [facility] Last Admin: 08/20/16 16:00 Dose: Not Given Lisinopril (Zestril) 5 mg PO DAILY [facility] Last Admin: 08/20/16 09:44 Dose: 5 mg Methylprednisolone (Solu-Medrol) 40 mg IV DAILY [facility] Last Admin: 08/20/16 09:45 Dose: 40 mg Metoprolol Tartrate (Lopressor) 25 mg PO BID [facility] Last Admin: 06/14/17 19:16 Dose: 25 mg Morphine Sulfate (Morphine) 2 mg IV Q4 PRN PRN Reason: Pain, severe (8-10) Last Admin: 08/20/16 04:22 Dose: 2 mg Pantoprazole Sodium (Protonix Ec Tab) 40 mg PO DAILY [facility] Last Admin: 08/20/16 09:44 Dose: 40 mg - Labs Labs: 08/20/16 05:50 08/20/16 05:50 PT 10.3 SECONDS (9.7-12.2) 08/20/16 05:50 INR 0.9 08/20/16 05:50 APTT 33 SECONDS (21-34) 08/20/16 05:50 - Constitutional Appears: No Acute Distress, Chronically Ill - Head Exam Head Exam: NORMAL INSPECTION - Eye Exam Eye Exam: Normal appearance - ENT Exam ENT Exam: Normal Exam - Neck Exam Neck Exam: Normal Inspection - Respiratory Exam Additional comments: Rhonchi heard at both bases. - Cardiovascular Exam Cardiovascular Exam: REGULAR RHYTHM - GI/Abdominal Exam GI & Abdominal Exam: Soft, Normal Bowel Sounds - Rectal Exam Rectal Exam: Deferred - Extremities Exam Additional comments: Tender both hips. External rotation of the right leg. - Back Exam Back Exam: NORMAL INSPECTION - Neurological Exam Neurological Exam: Alert, CN II-XII Intact, Oriented x3 - Psychiatric Exam Psychiatric exam: Anxious - Skin Additional comments: Excoriations all over arms and legs. Left periorbital hematoma fading. Assessment and Plan (1) Closed fracture of greater trochanter of left femur Status: Acute (2) Dehydration Status: Resolved (3) Sepsis Status: Acute (4) Fall Status: Acute (5) Arrhythmia Status: Acute (6) Contusion of head Status: Acute (7) Garden grade IV closed subcapital fracture of proximal end of right femur Status: Acute (8) CHF exacerbation Status: Resolved (9) Acute respiratory failure Status: Resolved (10) Pleural effusion, right Assessment & Plan: Consider removing the right chest tube when pleural draining slows down for the right hip surgery. Status: Acute
[2016-08-21] MEDS: Albuterol-Ipratrop 3 mg / 0.5 (3 ml) UD INH SCH ×4 (01:52→19:54)
[2016-08-21 06:25] LABS: BASO % 0.2 % (0.0-2.0); EOS % 0.2 % (0.0-4.0); HEMOGLOBIN 11.8 g/dL (11.0-16.0); LYMPH # 0.3 K/uL (1.0-4.3); LYMPH % 2.3 % (20.0-40.0); MEAN CELL VOLUME 110.1 fL (81.0-99.0); MEAN CORPUSCULAR HEMOGLOBIN 35.8 pg (27.0-31.0); MEAN CORPUSCULAR HGB CONC 32.5 g/dL (33.0-37.0); MEAN PLATELET VOLUME 10.3 fL (7.2-11.7); MONO # 1.3 K/uL (0.0-0.8); NEUT # 11.1 K/uL (1.8-7.0); NEUT % 87.3 % (50.0-75.0); PLATELET COUNT 281 K/uL (130-400); RBC 3.29 Mil/uL (3.80-5.20); RED CELL DISTRIBUTION WIDTH 16.1 % (11.5-14.5); WHITE BLOOD COUNT 12.7 K/uL (4.8-10.8)
[2016-08-21 06:25] LABS: PROTHROMBIN TIME 10.6 SECONDS (9.7-12.2)
[2016-08-21 06:37] LABS: ALBUMIN 2.6 g/dL (3.5-5.0)
[2016-08-21 06:40] LABS: ALB/GLOB RATIO 0.9 (1.0-2.1); AST/SGOT 23 U/L (14-36); GFR AFRICAN-AMERICAN > 60; GFR NON-AFRICAN AMERICAN > 60
[2016-08-21 06:41] LABS: ALT/SGPT 38 U/L (9-52); BLOOD UREA NITROGEN 22 mg/dL (7-17); CALCIUM 7.8 mg/dl (8.6-10.4); MAGNESIUM 1.9 mg/dL (1.6-2.3)
[2016-08-21] MEDS ORDERED: Sodium Phosphate 15 MMOLE in Sodium Chloride 0.9% 250 ML IVPB ONE (08:00)
[2016-08-21 08:10] LABS: LYMPHOCYTE 1 % (20-40); MONOCYTE 8 % (0-10); NEUTROPHIL 91 % (50-75); TOTAL CELLS COUNTED 100
[2016-08-21 08:12] LABS: ANISOCYTOSIS SLIGHT; PLATELET ESTIMATE NORMAL (NORMAL)
--- NOTE | 2016-08-21 08:35 | CP.PCM.PN ---
Subjective - Date & Time of Evaluation Date of Evaluation: 08/21/16 Time of Evaluation: 07:30 - Subjective Subjective: Hip pain controlled Objective - Vital Signs/Intake and Output Vital Signs (last 24 hours): Temp Pulse Resp BP Pulse Ox 97.1 F L 92 H 18 144/83 95 08/21/16 04:00 08/21/16 07:03 08/21/16 07:03 08/21/16 07:03 08/21/16 07:00 Intake and Output: 08/21/16 08/21/16 06:59 18:59 Intake Total 840 180 Output Total 380 230 Balance 460 -50 - Medications Medications: Current Medications Acetaminophen (Tylenol 650mg/20.3ml Solution Ud) 650 mg PO Q6H PRN PRN Reason: temp.100.4&above;mild pain 1-3 Last Admin: 08/15/16 00:15 Dose: 650 mg Albuterol/Ipratropium (Duoneb 3 Mg/0.5 Mg (3 Ml) Ud) 3 ml INH RQ6 [facility] Last Admin: 08/21/16 01:52 Dose: 3 ml Digoxin (Lanoxin) 0.25 mg PO DAILY@1800 [facility] Last Admin: 08/20/16 19:16 Dose: 0.25 mg Heparin Sodium (Porcine) (Heparin) 5,000 units SC Q12 [facility] Last Admin: 08/20/16 22:50 Dose: 5,000 units Cefepime HCl 1 gm/ Dextrose 50 mls @ 100 mls/hr IVPB Q12H [facility] Last Admin: 08/21/16 00:49 Dose: 100 mls/hr Sodium Chloride (Sodium Chloride 0.9%) 1,000 mls @ 60 mls/hr IV .[id number] [facility] Last Admin: 08/20/16 16:00 Dose: Not Given Sodium Phosphate 15 mmole/ (Sodium Chloride) 255 mls @ 50 mls/hr IVPB .Q5H6M ONE Stop: 08/21/16 13:05 Lisinopril (Zestril) 5 mg PO DAILY [facility] Last Admin: 08/20/16 09:44 Dose: 5 mg Methylprednisolone (Solu-Medrol) 40 mg IV DAILY [facility] Last Admin: 08/20/16 09:45 Dose: 40 mg Metoprolol Tartrate (Lopressor) 25 mg PO BID [facility] Last Admin: 08/20/16 19:16 Dose: 25 mg Morphine Sulfate (Morphine) 2 mg IV Q4 PRN PRN Reason: Pain, severe (8-10) Last Admin: 08/20/16 04:22 Dose: 2 mg Pantoprazole Sodium (Protonix Ec Tab) 40 mg PO DAILY [facility] Last Admin: 08/20/16 09:44 Dose: 40 mg - Labs Labs: 08/21/16 06:12 08/21/16 06:09 PT 10.6 SECONDS (9.7-12.2) 08/21/16 06:11 INR 1.0 08/21/16 06:11 APTT 29 SECONDS (21-34) 08/21/16 06:11 - Extremities Exam Additional comments: +ROM ankle/toes, sensation intact, +DP/PT pulses, calves soft NT neg homans Assessment and Plan (1) Garden grade IV closed subcapital fracture of proximal end of right femur Assessment & Plan: Surgery cancelled as per Dr. Rodriguez chest tube 70cc last 12 hrs d/w Dr. Elena will plan for 08/25 pending clearance Status: Acute (2) Degenerative joint disease of right hip Status: Chronic (3) Closed fracture of greater trochanter of left femur Assessment & Plan: non op Status: Acute
[2016-08-21] MEDS: Sodium Chloride 0.9% 1,000 ML IV SCH (09:30)
--- NOTE | 2016-08-21 09:46 | CP.PCM.PN ---
Subjective - Date & Time of Evaluation Date of Evaluation: 08/21/16 Time of Evaluation: 09:37 - Subjective Subjective: Cardiology Progress Note for Dr. Peacock Pt seen and examined at bedside. Pt doing well overnight with no acute complaints. Pt underwent chest tube placement for pleural effusion. Pt tentatively scheduled for the OR on Thursday. Denies CP, SOB, N/V/D. Objective - Vital Signs/Intake and Output Vital Signs (last 24 hours): Temp Pulse Resp BP Pulse Ox 97.1 F L 92 H 18 144/83 95 08/21/16 04:00 08/21/16 07:03 08/21/16 07:03 08/21/16 07:03 08/21/16 07:00 Intake and Output: 08/21/16 08/21/16 06:59 18:59 Intake Total 840 240 Output Total 380 330 Balance 460 -90 - Medications Medications: Current Medications Acetaminophen (Tylenol 650mg/20.3ml Solution Ud) 650 mg PO Q6H PRN PRN Reason: temp.100.4&above;mild pain 1-3 Last Admin: 08/15/16 00:15 Dose: 650 mg Albuterol/Ipratropium (Duoneb 3 Mg/0.5 Mg (3 Ml) Ud) 3 ml INH RQ6 [facility] Last Admin: 08/21/16 01:52 Dose: 3 ml Digoxin (Lanoxin) 0.25 mg PO DAILY@1800 [facility] Last Admin: 08/20/16 19:16 Dose: 0.25 mg Heparin Sodium (Porcine) (Heparin) 5,000 units SC Q12 [facility] Last Admin: 08/20/16 22:50 Dose: 5,000 units Cefepime HCl 1 gm/ Dextrose 50 mls @ 100 mls/hr IVPB Q12H [facility] Last Admin: 08/21/16 00:49 Dose: 100 mls/hr Sodium Chloride (Sodium Chloride 0.9%) 1,000 mls @ 60 mls/hr IV .[id number] [facility] Last Admin: 08/20/16 16:00 Dose: Not Given Sodium Phosphate 15 mmole/ (Sodium Chloride) 255 mls @ 50 mls/hr IVPB .Q5H6M ONE Stop: 08/21/16 13:05 Last Admin: 08/21/16 08:54 Dose: 50 mls/hr Lisinopril (Zestril) 5 mg PO DAILY [facility] Last Admin: 08/20/16 09:44 Dose: 5 mg Methylprednisolone (Solu-Medrol) 40 mg IV DAILY [facility] Last Admin: 08/20/16 09:45 Dose: 40 mg Metoprolol Tartrate (Lopressor) 25 mg PO BID [facility] Last Admin: 08/20/16 19:16 Dose: 25 mg Morphine Sulfate (Morphine) 2 mg IV Q4 PRN PRN Reason: Pain, severe (8-10) Last Admin: 08/20/16 04:22 Dose: 2 mg Pantoprazole Sodium (Protonix Ec Tab) 40 mg PO DAILY [facility] Last Admin: 08/20/16 09:44 Dose: 40 mg - Labs Labs: 08/21/16 06:12 08/21/16 06:09 PT 10.6 SECONDS (9.7-12.2) 08/21/16 06:11 INR 1.0 08/21/16 06:11 APTT 29 SECONDS (21-34) 08/21/16 06:11 - Constitutional Appears: Non-toxic, No Acute Distress - Head Exam Head Exam: ATRAUMATIC, NORMAL INSPECTION, NORMOCEPHALIC - ENT Exam ENT Exam: Mucous Membranes Moist - Respiratory Exam Respiratory Exam: Decreased Breath Sounds, Rales, NORMAL BREATHING PATTERN - Cardiovascular Exam Cardiovascular Exam: RRR, +S1, +S2 - GI/Abdominal Exam GI & Abdominal Exam: Soft, Normal Bowel Sounds. absent: Tenderness - Extremities Exam Extremities Exam: Normal Inspection. absent: Calf Tenderness, Pedal Edema - Neurological Exam Neurological Exam: Alert, Awake, Oriented x3 - Skin Skin Exam: Intact, Normal Color, Warm Assessment and Plan (1) CHF exacerbation Assessment & Plan: CHF exacerbation resolved at this time Pt is high risk for surgery at this time, but is medically optimized Pt will undergo surgery 24 hours after chest tube removal Continue current medical management Status: Resolved
[2016-08-21] MEDS: Pantoprazole 40 mg EC Tab PO SCH (10:46)
[2016-08-21] MEDS: MethylPREDNISolone 40 mg Vial IV SCH (10:48)
--- NOTE | 2016-08-21 14:14 | CP.CCUPN ---
<Donnell Grijalva - Last Filed: 08/21/16 14:09> CCU Subjective - Physician Review Subjective (Free Text): 08/11/16 15:46 Patient seen and examined at the bedside. No acute distress. No acute events overnight. Nursing staff reports no issues. Patient's pain is controlled with PO tylenol at this point. Morphine added for additional pain control PRN. The patient has an acute exacerbation of CHF and remains medically unfit for OR for TAMARA. The patient denies fever, chills, headache, chest pain, SOB, abdominal pain, N/V/D/C. Today on rounds, the patient was placed on scheduled PO digoxin 0.25mg, and IV morphine 1mg q4 prn was added for additional pain control. The topic of advanced directives was also discussed at length. 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 Under circumstances where recovery to a quality of live that will enable her to care for her is not certain, she wishes no extraordinary measures to be taken. 08/12/16 14:52 Patient seen and examined at the bedside. No acute distress. No acute events overnight. Nursing staff reports no issues. Patient's pain is controlled with PO tylenol and morphine PRN. The patient has been tentatively scheduled for OR at 11:30am with Dr. Elena pending medical risk assessment and clearance. The patient reports continued right leg pain. Per the patient, the pain is adequately controlled. The patient denies fever, chills, headache, chest pain, SOB, abdominal pain, N/V/D/C. Today on rounds, the patient's heparin drip was changed to cardiac protocol. Dr. Peacock was consulted for chronic low ejection systolic heart failure and new onset a-fib. The patient's phosphorous, magnesium, and potassium were replaced. To supplement her diet, Boost was added with all meals and ensure was added one time daily at night. 08/13/16 11:30 Patient seen and examined at the bedside. No acute distress. No acute events overnight. Nursing staff reports no issues. Patient is for cardiac cath with Dr. Cantu today. Patient is in pain this morning. 1 dose of morphine was given with good result. The patient is tentatively scheduled for the OR on with Dr. Elena pending medical risk assessment and stratification. The patient denies fever, chills, headache, chest pain, SOB, abdominal pain, N/V/D/ C. Today on rounds, The patients phosphorous was replaced. Repeat TONY panel and EKG were also ordered for 13:00 t0 trend mildly elevated troponin measurements. 08/14/16 14:28 Patient seen and examined at the bedside. No acute distress. Patient called for code blue at 19:34 last night. Patient was intubated by shovel engineer at bedside. Patient on PRVC this morning. Central line access left femoral vein. Nursing staff reports no issues. Today on rounds, the patient's presser was changed to levophed from dopamine, lovenox VTE prophylaxis was initiated, tube feeds were started, cerna cultures were sent, and the patients magnesium was replaced. 08/15/16 07:44 Patient seen and examined at the bedside. No acute distress. No acute events overnight. Nursing staff reports no issues. Patient was trialed on CPAP yesterday and tolerated it for a short time. Curently on PRVC (400 / 12 / 60% / 5) The patient is restless this morning. The patient appears more awake this morning. The overnight nursing staff reports that the patient intermittently followed commands. This morning the patient is minimally able to follow commands. Today on rounds, the patient's magnesium was replaced. A ct head and CTA chest were also ordered. 08/18/16 11:02 Patient seen and examined at the bedside. No acute distress. No acute events overnight. Nursing staff reports no issues. The patient has been extubated and is saturating well on her own. The patient has no complaints this morning. The patient's hip pain is well controlled at this point. The patient denies fever, chills, headache, chest pain ,shortness of breath, abdominal pain, N/V/D/ C, changes in bowel/bladder, and extremity paresthesias. Today on rounds, the patient's solumedrol was decreased from q12 to daily. The patient's diet was also advanced. She will be advanced to a heart healthy diet as tolerated. She passed her swallow evaluation this morning. 08/19/16 08:59 Patient seen and examined at the bedside. No acute distress. No acute events overnight. Nursing staff reports no issues. The patient has been extubated and is saturating well on her own. Patient reports pain with re-positioning, but notes requesting morphine for the pain prior to the re-positioning. The patient's hip pain is well controlled at this point. The patient is pending medical risk assessment for surgery. The patient is tentatively scheduled for OR with Dr. Elena tomorrow of . This morning, the patient denies all complaints. The patient denies fever, chills, headache, chest pain, SOB, abdominal pain, N/V/D/C, changes in bowel/bladder and extremity paresthesias. Today on rounds, the patient was started on gentle IVF hydration at 60ml/hr for oliguria. The patient's magnesium was replaced, and a portable CXR was ordered for evaluation of the patient's B/L pleural effusions. 08/19/16 16:28 Post rounds, the patient was consented for bedside chest tube placement for thoracentesis of pleural effusion. 08/20/16 14:54 Patient seen and examined at the bedside. No acute distress. No acute events overnight. Nursing staff reports no issues. The patient tolerated the placement of the right sided chest tube. The patient has remained in stable condition in the ICU. The patient has no acute complaints this morning. The patient denies fever, chills, headache, chest pain, SOB, abdominal pain, N/V/D/C , changes in bowel/bladder and extremity paresthesias. Today on rounds, the patient had a portable AP chest film taken to evaluate the placement of the chest tube. The patient is pending risk assessment by Dr. Rodriguez for OR with Dr. Elena. 08/21/16 14:10 Patient seen and examined at bedside. No acute distress. No acute events overnight. Nursing staff reports no issues. The patient denies fever, chills, SOB, chest pain, abdominal pain, N/V/D/C, or paresthesias. No interval change from prior examination. Today, the patient was started on 20mg Lasix. The patient continues to have drainage from right lateral chest tube of 70mL overnight. Critical Care Time Spent (in minutes): 60 CCU Objective - Vital Signs / Intake & Output Vital Signs (Last 4 hours): Vital Signs BP 08/21/16 12:10 139/68 08/21/16 10:46 130/76 Intake and Output (Last 8hrs): Intake & Output 08/20/16 08/21/16 08/21/16 22:59 06:59 14:59 Intake Total 840 480 630 Output Total 505 240 560 Balance 335 240 70 Intake: Intake, IV Amount 480 480 410 Right PICC 480 480 410 Oral 360 0 220 Output: Chest Tube Drainage 180 70 Right Upper Anterior 180 70 Chest Urine 325 240 490 Urethral (Jones) 325 240 490 Other: # Bowel Movements 1 - Physical Exam Head: Positive for: Normocephalic, Ecchymosis, Other (Contusions over left side of face healing). Negative for: Atraumatic Pupils: Positive for: PERRL Extroacular Muscles: Positive for: EOMI Conjunctiva: Positive for: Normal Mouth: Positive for: Moist Mucous Membranes Neck: Positive for: Normal Range of Motion. Negative for: JVD, Bruit Respiratory/Chest: Positive for: Good Air Exchange, Decreased Breath Sounds ( bibasilar R > L), Rales (bibasilar ). Negative for: Clear to Auscultation, Respiratory Distress, Accessory Muscle Use, Wheezes, Retracting, Rhonchi Cardiovascular: Positive for: Regular Rate and Rhythm, Normal S1, S2, Peripheal Pulses Present. Negative for: Murmurs Abdomen: Positive for: Normal Bowel Sounds. Negative for: Tenderness, Distention, Peritoneal Signs, Rebound, Guarding Upper Extremity: Positive for: Normal Inspection, NORMAL PULSES, Neurovascularly Intact Lower Extremity: Positive for: NORMAL PULSES, Deformity (right leg shotened and externally rotated ), Neurovascularly Intact, Other (tenderness over b/l hips to palpation). Negative for: Normal Inspection, Normal ROM Neurological: Positive for: CN II-XII Intact, Speech Normal, Motor Func Grossly Intact Skin: Positive for: Warm, Dry, Normal Color. Negative for: Rashes Psychiatric: Positive for: Alert, Oriented x 3 - Medications Active Medications: Active Medications Generic Name Dose Route Start Last Admin Trade Name Freq PRN Reason Stop Dose Admin Acetaminophen 650 mg 08/14/16 23:50 08/15/16 00:15 Tylenol 650mg/20.3ml Solution Ud PO 650 mg Q6H PRN Administration temp.100.4&above;mild pain 1-3 Albuterol/Ipratropium 3 ml 08/16/16 14:00 08/21/16 07:40 Duoneb 3 Mg/0.5 Mg (3 Ml) Ud INH 3 ml RQ6 [place] Administration Digoxin 0.25 mg 08/11/16 18:00 08/20/16 19:16 Lanoxin PO 0.25 mg DAILY@1800 [place] Administration Furosemide 20 mg 08/21/16 12:00 08/21/16 12:10 Lasix PO 20 mg DAILY [place] Administration Heparin Sodium (Porcine) 5,000 units 08/15/16 22:00 08/21/16 10:46 Heparin SC 5,000 units Q12 [place] Administration Cefepime HCl 1 gm/ Dextrose 50 mls @ 100 mls/hr 08/14/16 12:00 08/21/16 12:11 IVPB 100 mls/hr Q12H [place] Administration Lisinopril 5 mg 08/17/16 10:00 08/21/16 10:46 Zestril PO 5 mg DAILY [place] Administration Methylprednisolone 40 mg 08/18/16 10:00 08/21/16 10:48 Solu-Medrol IV 40 mg DAILY [place] Administration Metoprolol Tartrate 25 mg 08/12/16 18:00 08/21/16 10:46 Lopressor PO 25 mg BID [place] Administration Morphine Sulfate 2 mg 08/14/16 15:36 08/20/16 04:22 Morphine IV 2 mg Q4 PRN Administration Pain, severe (8-10) Pantoprazole Sodium 40 mg 08/19/16 10:00 08/21/16 10:46 Protonix Ec Tab PO 40 mg DAILY [place] Administration - Patient Studies Lab Studies: Microbiology Studies 08/19/16 18:27 Gram Stain - Final Pleural Fluid Body Fluid Culture - Preliminary NO GROWTH AFTER 2 DAYS Lab Studies 08/21/16 08/21/16 08/21/16 Range/Units 06:12 06:11 06:09 WBC 12.7 H (4.8-10.8) K/uL RBC 3.29 L (3.80-5.20) Mil/uL Hgb 11.8 (11.0-16.0) g/dL Hct 36.3 (34.0-47.0) % MCV 110.1 H (81.0-99.0) fL MCH 35.8 H (27.0-31.0) pg MCHC 32.5 L (33.0-37.0) g/dL RDW 16.1 H (11.5-14.5) % Plt Count 281 (130-400) K/uL MPV 10.3 (7.2-11.7) fL Neut % (Auto) 87.3 H (50.0-75.0) % Lymph % (Auto) 2.3 L (20.0-40.0) % [place] % (Auto) 10.0 (0.0-10.0) % Eos % (Auto) 0.2 (0.0-4.0) % Baso % (Auto) 0.2 (0.0-2.0) % Neut # 11.1 H (1.8-7.0) K/uL Lymph # 0.3 L (1.0-4.3) K/uL [place] # 1.3 H (0.0-0.8) K/uL Eos # 0.0 (0.0-0.7) K/uL Baso # 0.0 (0.0-0.2) K/uL Neutrophils % (Manual) 91 H (50-75) % Lymphocytes % (Manual) 1 L (20-40) % Monocytes % (Manual) 8 (0-10) % Platelet Estimate Normal (NORMAL) Anisocytosis (manual) Slight Macrocytosis (manual) Slight PT 10.6 (9.7-12.2) SECONDS INR 1.0 APTT 29 (21-34) SECONDS Sodium 130 L (132-148) mmol/L Potassium 4.4 (3.6-5.2) mmol/L Chloride 96 L (98-107) mmol/L Carbon Dioxide 30 (22-30) mmol/L Anion Gap 8 L (10-20) BUN 22 H (7-17) mg/dL Creatinine 0.6 L (0.7-1.2) MG/DL Est GFR ( Amer) > 60 Est GFR (Non-Af Amer) > 60 Random Glucose 75 (65-105) mg/dL Calcium 7.8 L (8.6-10.4) mg/dl Phosphorus 2.3 L (2.5-4.5) mg/dL Magnesium 1.9 (1.6-2.3) mg/dL Total Bilirubin 0.6 (0.2-1.3) mg/dL AST 23 (14-36) U/L ALT 38 (9-52) U/L Alkaline Phosphatase 133 H (38-126) U/L Total Protein 5.5 L (6.3-8.3) g/dL Albumin 2.6 L (3.5-5.0) g/dL Globulin 2.9 (2.2-3.9) gm/dL Albumin/Globulin Ratio 0.9 L (1.0-2.1) Laboratory Results - last 24 hr 08/21/16 08/21/16 08/21/16 06:09 06:11 06:12 WBC 12.7 H RBC 3.29 L Hgb 11.8 Hct 36.3 MCV 110.1 H MCH 35.8 H MCHC 32.5 L RDW 16.1 H Plt Count 281 MPV 10.3 Neut % (Auto) 87.3 H Lymph % (Auto) 2.3 L [place] % (Auto) 10.0 Eos % (Auto) 0.2 Baso % (Auto) 0.2 Neut # 11.1 H Lymph # 0.3 L [place] # 1.3 H Eos # 0.0 Baso # 0.0 Neutrophils % (Manual) 91 H Lymphocytes % (Manual) 1 L Monocytes % (Manual) 8 Platelet Estimate Normal Anisocytosis (manual) Slight Macrocytosis (manual) Slight PT 10.6 INR 1.0 APTT 29 Sodium 130 L Potassium 4.4 Chloride 96 L Carbon Dioxide 30 Anion Gap 8 L BUN 22 H Creatinine 0.6 L Est GFR ( Amer) > 60 Est GFR (Non-Af Amer) > 60 Random Glucose 75 Calcium 7.8 L Phosphorus 2.3 L Magnesium 1.9 Total Bilirubin 0.6 AST 23 ALT 38 Alkaline Phosphatase 133 H Total Protein 5.5 L Albumin 2.6 L Globulin 2.9 Albumin/Globulin Ratio 0.9 L Review of Systems - Review of Systems Review of Systems: All systems: reviewed and no additional remarkable complaints except - EENT Eyes: absent: Blind Spots, Blurred Vision Ears: absent: Decreased Hearing, Tinnitus Nose/Mouth/Throat: absent: Nasal Congestion, Facial Pain, Neck Pain - Cardiovascular Cardiovascular: absent: Chest Pain, Palpitations, Syncope - Respiratory Respiratory: absent: Cough, Dyspnea, Dyspnea on Exertion - Gastrointestinal Gastrointestinal: absent: Abdominal Pain, Constipation, Diarrhea, Nausea, Vomiting - Genitourinary Genitourinary: absent: Change in Urinary Stream, Difficulty Urinating - Musculoskeletal Musculoskeletal: Arthralgias, Limited Range of Motion, Myalgias - Integumentary Integumentary: absent: Lesions, Rash, Wounds - Neurological Neurological: absent: Sensory Deficit, Syncope, Tingling, Tremor, Vertigo, Weakness - Endocrine Endocrine: absent: Cold Intolorance, Heat Intolorance Critical Care Progress Note - Extremities/Vascular Does the Patient have a Central Venous Catheter?: Yes Insertion Site: R PICC Does the Patient need a Central Venous Catheter?: Yes Does the Patient have a Jones Catheter?: Yes Does the Patient need a Jones Catheter?: Yes Catheter Insertion Criteria: Patient requires prolonged immobilization - Prophylaxis GI Prophylaxis GI: PPI - Prophylaxis DVT Prophylaxis DVT: Heparin SQ - Nutrition Nutrition: Nutrition Category Date Time Status Heart Healthy Diet [DIET] Diets 08/20/16 Dinner Active Assessment/Plan (1) Garden grade IV closed subcapital fracture of proximal end of right femur Current Visit: Yes Status: Acute (2) CHF exacerbation Current Visit: Yes Status: Resolved (3) Closed fracture of greater trochanter of left femur Current Visit: Yes Status: Acute (4) Multifocal atrial tachycardia Current Visit: Yes Status: Chronic (5) CHF (NYHA class III, ACC/AHA stage C) Current Visit: Yes Status: Chronic (6) Pleural effusion due to CHF (congestive heart failure) Current Visit: Yes Status: Acute (7) Status post thoracentesis Current Visit: Yes Status: Acute - Assessment and Plan (Free Text) Plan: Patient Status: [place] II- 14 From ICU Standpoint, Patient is HIGH RISK for surgery Dr. Rodriguez for medical risk assessment for surgery- states patient will be eligible for surgery once CT drainage has decreased and has been out x 24hours Tentative plan for morning per Dr. Elena Neuro: -No acute issues -08/15/16 CT Head- No acute intracranial abnormality. Moderate chronic microangiopathic changes and mild age-related global parenchymal volume loss. Cardiovascular: -R PICC for access placed 08/18/16 -s/p code blue 08/13/16 -metoprolol 25mg po bid -Digoxin 0.25mg PO daily -Lisinopril 5mg po daily -Lasix 20mg PO Daily -Cardiology Consult- Dr. Voudouris- life vest on DC -08/14/16 Echo ordered- severe systolic dysfunction -08/13/16 Cardiac Cath- complete RCA occlusion, good collateral flow from LAD. No stent indicated at this time -08/12/16 EKG- Normal sinus rhythm, normal intervals, normal axis, evidence of anterior wall and inferior wall ischemia- official read pending -08/09/16 Echo- EF 26%, grade I abnormal relaxation pattern, moderate-severe mitral regurgitation, mild pulm HTN Pulmonary: -Patient saturation tolerated well; on nasal cannula -Right lateral chest tube placement (day 2) due to right pleural effusion -Drainage in last 24 hours: 70mL -solu-medrol 40mg iv daily -Imaging : 08/20/16 CXR- no significant interval change : 08/19/16 CXR- no interval change. picc line stable. pleural effusions remain present- pending official read. : 08/18/16 CXR- Right-sided PICC extends expected location of the cavoatrial junction. Interval removal of endotracheal tube and nasogastric tube. Increased interstitial markings may reflect infection or edema. Layering left-greater- than-right pleural effusions and associated consolidations. Biapical pleural thickening. Cardiomegaly. Gastrointestinal: -No acute complaints -Reg heart healthy, mod carb diet + Boost Plus TID -encouraged PO liquid intake -Passed swallow Hematology: -No acute issues Endocrine: -No issues Renal: -no issues Musculoskeletal: -Pain Control- Tylenol 650mg PO q6 PRN, morphine 1mg IV q4 PRN -Dr. Elena on case for orthopedic evaluation- OR pending medical risk stratification (HIGH RISK from ICU standpoint) -Doppler US Negative for DVT -Right Garden IV Displaced Subcapital Femoral Neck Fracture -Left Isolated Greater Trochanter Fracture -Imaging -08/08/16 R Knee XR- no acute fracture of dislocation -08/07/16 CT Pelvis- 1. Impacted fracture of the proximal right femur. This appears and involves the neck of the femur. 2. Preserved right femoral acetabular relationship. 3. Destructive process with associated fracture of the greater trochanter left femur. Abundant soft tissue swelling noted. . By history, the patient does not have a known malignancy. -08/07/16 Pelvis XR- Fracture right femoral neck with displacement and mild impaction. Questionable fracture of left greater trochanter. Please correlate clinically and consider further radiographic evaluation. Genitourinary: -No issues -Continue ojnes catheter Infectious Disease: -cefepime 1g q12- day 8 GI Prophylaxis: Protonix 40mg PO daily DVT Prophylaxis: Lovenox 40mg SC daily Case Discussed with Dr. Lupe Grijalva PGY1 - Date & Time Date: 08/21/16 Time: 14:14 <Max Andrade - Last Filed: 08/21/16 14:17> CCU Objective - Vital Signs / Intake & Output Vital Signs (Last 4 hours): Vital Signs BP 08/21/16 12:10 139/68 08/21/16 10:46 130/76 Intake and Output (Last 8hrs): Intake & Output 08/20/16 08/21/16 08/21/16 22:59 06:59 14:59 Intake Total 840 480 630 Output Total 505 240 560 Balance 335 240 70 Intake: Intake, IV Amount 480 480 410 Right PICC 480 480 410 Oral 360 0 220 Output: Chest Tube Drainage 180 70 Right Upper Anterior 180 70 Chest Urine 325 240 490 Urethral (Jones) 325 240 490 Other: # Bowel Movements 1 - Medications Active Medications: Active Medications Generic Name Dose Route Start Last Admin Trade Name Freq PRN Reason Stop Dose Admin Acetaminophen 650 mg 08/14/16 23:50 08/15/16 00:15 Tylenol 650mg/20.3ml Solution Ud PO 650 mg Q6H PRN Administration temp.100.4&above;mild pain 1-3 Albuterol/Ipratropium 3 ml 08/16/16 14:00 08/21/16 07:40 Duoneb 3 Mg/0.5 Mg (3 Ml) Ud INH 3 ml RQ6 [place] Administration Digoxin 0.25 mg 08/11/16 18:00 08/20/16 19:16 Lanoxin PO 0.25 mg DAILY@1800 [place] Administration Furosemide 20 mg 08/21/16 12:00 08/21/16 12:10 Lasix PO 20 mg DAILY [place] Administration Heparin Sodium (Porcine) 5,000 units 08/15/16 22:00 08/21/16 10:46 Heparin SC 5,000 units Q12 [place] Administration Cefepime HCl 1 gm/ Dextrose 50 mls @ 100 mls/hr 08/14/16 12:00 08/21/16 12:11 IVPB 100 mls/hr Q12H [place] Administration Lisinopril 5 mg 08/17/16 10:00 08/21/16 10:46 Zestril PO 5 mg DAILY [place] Administration Methylprednisolone 40 mg 08/18/16 10:00 08/21/16 10:48 Solu-Medrol IV 40 mg DAILY [place] Administration Metoprolol Tartrate 25 mg 08/12/16 18:00 08/21/16 10:46 Lopressor PO 25 mg BID [place] Administration Morphine Sulfate 2 mg 08/14/16 15:36 08/20/16 04:22 Morphine IV 2 mg Q4 PRN Administration Pain, severe (8-10) Pantoprazole Sodium 40 mg 08/19/16 10:00 08/21/16 10:46 Protonix Ec Tab PO 40 mg DAILY [place] Administration - Patient Studies Lab Studies: Microbiology Studies 08/19/16 18:27 Gram Stain - Final Pleural Fluid Body Fluid Culture - Preliminary NO GROWTH AFTER 2 DAYS Lab Studies 08/21/16 08/21/16 08/21/16 Range/Units 06:12 06:11 06:09 WBC 12.7 H (4.8-10.8) K/uL RBC 3.29 L (3.80-5.20) Mil/uL Hgb 11.8 (11.0-16.0) g/dL Hct 36.3 (34.0-47.0) % MCV 110.1 H (81.0-99.0) fL MCH 35.8 H (27.0-31.0) pg MCHC 32.5 L (33.0-37.0) g/dL RDW 16.1 H (11.5-14.5) % Plt Count 281 (130-400) K/uL MPV 10.3 (7.2-11.7) fL Neut % (Auto) 87.3 H (50.0-75.0) % Lymph % (Auto) 2.3 L (20.0-40.0) % [place] % (Auto) 10.0 (0.0-10.0) % Eos % (Auto) 0.2 (0.0-4.0) % Baso % (Auto) 0.2 (0.0-2.0) % Neut # 11.1 H (1.8-7.0) K/uL Lymph # 0.3 L (1.0-4.3) K/uL [place] # 1.3 H (0.0-0.8) K/uL Eos # 0.0 (0.0-0.7) K/uL Baso # 0.0 (0.0-0.2) K/uL Neutrophils % (Manual) 91 H (50-75) % Lymphocytes % (Manual) 1 L (20-40) % Monocytes % (Manual) 8 (0-10) % Platelet Estimate Normal (NORMAL) Anisocytosis (manual) Slight Macrocytosis (manual) Slight PT 10.6 (9.7-12.2) SECONDS INR 1.0 APTT 29 (21-34) SECONDS Sodium 130 L (132-148) mmol/L Potassium 4.4 (3.6-5.2) mmol/L Chloride 96 L (98-107) mmol/L Carbon Dioxide 30 (22-30) mmol/L Anion Gap 8 L (10-20) BUN 22 H (7-17) mg/dL Creatinine 0.6 L (0.7-1.2) MG/DL Est GFR ( Amer) > 60 Est GFR (Non-Af Amer) > 60 Random Glucose 75 (65-105) mg/dL Calcium 7.8 L (8.6-10.4) mg/dl Phosphorus 2.3 L (2.5-4.5) mg/dL Magnesium 1.9 (1.6-2.3) mg/dL Total Bilirubin 0.6 (0.2-1.3) mg/dL AST 23 (14-36) U/L ALT 38 (9-52) U/L Alkaline Phosphatase 133 H (38-126) U/L Total Protein 5.5 L (6.3-8.3) g/dL Albumin 2.6 L (3.5-5.0) g/dL Globulin 2.9 (2.2-3.9) gm/dL Albumin/Globulin Ratio 0.9 L (1.0-2.1) Laboratory Results - last 24 hr 08/21/16 08/21/16 08/21/16 06:09 06:11 06:12 WBC 12.7 H RBC 3.29 L Hgb 11.8 Hct 36.3 MCV 110.1 H MCH 35.8 H MCHC 32.5 L RDW 16.1 H Plt Count 281 MPV 10.3 Neut % (Auto) 87.3 H Lymph % (Auto) 2.3 L [place] % (Auto) 10.0 Eos % (Auto) 0.2 Baso % (Auto) 0.2 Neut # 11.1 H Lymph # 0.3 L [place] # 1.3 H Eos # 0.0 Baso # 0.0 Neutrophils % (Manual) 91 H Lymphocytes % (Manual) 1 L Monocytes % (Manual) 8 Platelet Estimate Normal Anisocytosis (manual) Slight Macrocytosis (manual) Slight PT 10.6 INR 1.0 APTT 29 Sodium 130 L Potassium 4.4 Chloride 96 L Carbon Dioxide 30 Anion Gap 8 L BUN 22 H Creatinine 0.6 L Est GFR ( Amer) > 60 Est GFR (Non-Af Amer) > 60 Random Glucose 75 Calcium 7.8 L Phosphorus 2.3 L Magnesium 1.9 Total Bilirubin 0.6 AST 23 ALT 38 Alkaline Phosphatase 133 H Total Protein 5.5 L Albumin 2.6 L Globulin 2.9 Albumin/Globulin Ratio 0.9 L Critical Care Progress Note - Nutrition Nutrition: Nutrition Category Date Time Status Heart Healthy Diet [DIET] Diets 08/20/16 Dinner Active Attending/Attestation - Attestation I have personally seen and examined this patient.: Yes I have fully participated in the care of the patient.: Yes I have reviewed all pertinent clinical information: Yes Notes (Text): 08/21/16 14:15 I have seen and examined the patient. Medical records, lab studies, and imaging were reviewed by me and a management plan was formulated on multidisciplinary rounds with resident Dr. Grijalva. I agree with their above documented assessment and plan. Starting diuresis. Hoping that increased renal output will result in decreased pleural output in chest tube. Then chest tube can be removed. Patient still awaiting bilateral hip repair surgery, which will be performed once chest tube is taken out. Critical Care Time 35 minutes. Multi-disciplinary rounds were performed with house staff, nursing, speech therapy, respiratory therapy, pharmacy and nutrition with integrated input from the primary team/attending and other consulting services. The documented time is cumulative and includes review of patient data/exams/labs/chart review and examination of the patient on rounds and throughout the day; time is exclusive of any procedures or teaching time.
[2016-08-21] MEDS: Digoxin 250 mcg (0.25 mg) Tab PO SCH (18:03)
[2016-08-22] MEDS: Albuterol-Ipratrop 3 mg / 0.5 (3 ml) UD INH SCH ×4 (01:55→19:52)
[2016-08-22 06:47] LABS: BASO # 0.1 K/uL (0.0-0.2); BASO % 0.4 % (0.0-2.0); HEMOGLOBIN 12.1 g/dL (11.0-16.0); LYMPH # 0.2 K/uL (1.0-4.3); LYMPH % 0.8 % (20.0-40.0); MEAN CELL VOLUME 109.4 fL (81.0-99.0); MEAN CORPUSCULAR HEMOGLOBIN 36.1 pg (27.0-31.0); MEAN PLATELET VOLUME 9.9 fL (7.2-11.7); MONO % 4.7 % (0.0-10.0); NEUT # 19.1 K/uL (1.8-7.0); NEUT % 94.1 % (50.0-75.0); PLATELET COUNT 301 K/uL (130-400); RBC 3.35 Mil/uL (3.80-5.20); RED CELL DISTRIBUTION WIDTH 15.8 % (11.5-14.5); WHITE BLOOD COUNT 20.3 K/uL (4.8-10.8)
[2016-08-22 06:54] LABS: ALBUMIN 2.6 g/dL (3.5-5.0)
[2016-08-22 06:57] LABS: ALB/GLOB RATIO 0.9 (1.0-2.1); AST/SGOT 18 U/L (14-36); BLOOD UREA NITROGEN 24 mg/dL (7-17); GFR AFRICAN-AMERICAN > 60; GFR NON-AFRICAN AMERICAN > 60
[2016-08-22 06:58] LABS: ALT/SGPT 35 U/L (9-52); MAGNESIUM 1.8 mg/dL (1.6-2.3)
[2016-08-22 08:30] LABS: ANISOCYTOSIS SLIGHT; LARGE PLATELETS PRESENT; LYMPHOCYTE 1 % (20-40); MONOCYTE 6 % (0-10); NEUTROPHIL 93 % (50-75); PLATELET ESTIMATE NORMAL (NORMAL); TOTAL CELLS COUNTED 100
[2016-08-22] MEDS: Pantoprazole 40 mg EC Tab PO SCH (10:08)
[2016-08-22] MEDS: MethylPREDNISolone 40 mg Vial IV SCH (10:09)
--- NOTE | 2016-08-22 10:55 | CP.PCM.PN ---
Subjective - Date & Time of Evaluation Date of Evaluation: 08/22/16 Time of Evaluation: 11:36 - Subjective Subjective: Pain controlled. No new complaints. Objective - Vital Signs/Intake and Output Vital Signs (last 24 hours): Temp Pulse Resp BP Pulse Ox 98.2 F 95 H 15 113/66 100 08/22/16 08:00 08/22/16 10:02 08/22/16 10:02 08/22/16 10:09 08/22/16 09:02 Intake and Output: 08/22/16 08/22/16 06:59 18:59 Intake Total 350 50 Output Total 460 85 Balance -110 -35 - Medications Medications: Current Medications Acetaminophen (Tylenol 650mg/20.3ml Solution Ud) 650 mg PO Q6H PRN PRN Reason: temp.100.4&above;mild pain 1-3 Last Admin: 08/15/16 00:15 Dose: 650 mg Albuterol/Ipratropium (Duoneb 3 Mg/0.5 Mg (3 Ml) Ud) 3 ml INH RQ6 [facility] Last Admin: 08/22/16 07:45 Dose: 3 ml Digoxin (Lanoxin) 0.25 mg PO DAILY@1800 [facility] Last Admin: 08/21/16 18:03 Dose: Not Given Furosemide (Lasix) 20 mg PO DAILY [facility] Last Admin: 08/22/16 10:09 Dose: 20 mg Heparin Sodium (Porcine) (Heparin) 5,000 units SC Q12 [facility] Last Admin: 08/22/16 10:09 Dose: 5,000 units Cefepime HCl 1 gm/ Dextrose 50 mls @ 100 mls/hr IVPB Q12H [facility] Last Admin: 08/22/16 00:00 Dose: 100 mls/hr Lisinopril (Zestril) 5 mg PO DAILY [facility] Last Admin: 08/22/16 10:08 Dose: 5 mg Methylprednisolone (Solu-Medrol) 40 mg IV DAILY [facility] Last Admin: 08/22/16 10:09 Dose: 40 mg Metoprolol Tartrate (Lopressor) 25 mg PO BID [facility] Last Admin: 08/22/16 10:08 Dose: 25 mg Morphine Sulfate (Morphine) 2 mg IVP Q4 PRN PRN Reason: Pain, severe (8-10) Pantoprazole Sodium (Protonix Ec Tab) 40 mg PO DAILY [facility] Last Admin: 08/22/16 10:08 Dose: 40 mg - Labs Labs: 08/22/16 06:36 08/22/16 06:33 PT 10.6 SECONDS (9.7-12.2) 08/21/16 06:11 INR 1.0 08/21/16 06:11 APTT 29 SECONDS (21-34) 08/21/16 06:11 - Extremities Exam Additional comments: RLE: 2+pitting edema B, +DP pulse, +ROM ankle/toes, heel protector boots and venodynes intact. Calves soft NT neg homans, no palpable cords Assessment and Plan (1) Garden grade IV closed subcapital fracture of proximal end of right femur Assessment & Plan: elevated WBC today awaiting surgical clearance Dr. Rodriguez d/w Dr. Elena, away of above VTE and decub precautions on heparin Status: Acute (2) Degenerative joint disease of right hip Status: Chronic (3) Closed fracture of greater trochanter of left femur Assessment & Plan: non operative Status: Acute
[2016-08-22] MEDS: Sodium Chloride 0.9% 1,000 ML IV SCH (12:20)
--- NOTE | 2016-08-22 14:16 | RAD ---
HISTORY: right pleural effusion COMPARISON: 08/20/2016 FINDINGS: The right PICC line terminates in the SVC. There is stable position of the right chest tube. LUNGS: The lungs are hyperinflated and there is peribronchial thickening with chronic changes in both lungs. There is airspace disease in the left lower lobe. There is biapical pleural thickening and calcified nodules in the right upper lobe. PLEURA: There is a persistent small left pleural effusion. No significant pleural effusion identified, no pneumothorax apparent. CARDIOVASCULAR: Normal. OSSEOUS STRUCTURES: There are multiple fractures in the left lower ribs. VISUALIZED UPPER ABDOMEN: Normal. OTHER FINDINGS: None. IMPRESSION: Persistent left lower lobe airspace disease and pleural effusion. COPD.
--- NOTE | 2016-08-22 14:21 | CP.CCUPN ---
CCU Subjective - Physician Review Events Since Last Encounter (Free Text): 08/22/16 14:04 patient is clinically stable, no complaints. CCU Objective - Vital Signs / Intake & Output Vital Signs (Last 4 hours): Vital Signs Temp Pulse Resp BP Pulse Ox 08/22/16 12:11 99 H 15 113/70 08/22/16 12:00 97.9 F 08/22/16 11:02 95 H 12 111/57 L 100 08/22/16 10:09 113/66 08/22/16 10:08 11366 Intake and Output (Last 8hrs): Intake & Output 08/21/16 08/22/16 08/22/16 22:59 06:59 14:59 Intake Total 280 250 100 Output Total 301 295 125 Balance -21 -45 -25 Intake: Intake, IV Amount 0 50 50 Right PICC 0 50 50 Oral 280 200 50 Output: Chest Tube Drainage 50 50 Right Upper Anterior 50 50 Chest Urine 250 245 125 Urethral (Jones) 250 245 125 Stool 1 Other: # Bowel Movements 1 1 0 - Physical Exam Head: Positive for: Normocephalic, Ecchymosis, Other (Contusions over left side of face healing). Negative for: Atraumatic Pupils: Positive for: PERRL Extroacular Muscles: Positive for: EOMI Conjunctiva: Positive for: Normal Mouth: Positive for: Moist Mucous Membranes Neck: Positive for: Normal Range of Motion. Negative for: JVD, Bruit Respiratory/Chest: Positive for: Good Air Exchange, Decreased Breath Sounds ( bibasilar R > L), Rales (bibasilar ). Negative for: Clear to Auscultation, Respiratory Distress, Accessory Muscle Use, Wheezes, Retracting, Rhonchi Cardiovascular: Positive for: Regular Rate and Rhythm, Normal S1, S2, Peripheal Pulses Present. Negative for: Murmurs Abdomen: Positive for: Normal Bowel Sounds. Negative for: Tenderness, Distention, Peritoneal Signs, Rebound, Guarding Upper Extremity: Positive for: Normal Inspection, NORMAL PULSES, Neurovascularly Intact Lower Extremity: Positive for: NORMAL PULSES, Deformity (right leg shotened and externally rotated ), Neurovascularly Intact, Other (tenderness over b/l hips to palpation). Negative for: Normal Inspection, Normal ROM Neurological: Positive for: CN II-XII Intact, Speech Normal, Motor Func Grossly Intact Skin: Positive for: Warm, Dry, Normal Color. Negative for: Rashes Psychiatric: Positive for: Alert, Oriented x 3 - Medications Active Medications: Active Medications Generic Name Dose Route Start Last Admin Trade Name Freq PRN Reason Stop Dose Admin Acetaminophen 650 mg 08/14/16 23:50 08/15/16 00:15 Tylenol 650mg/20.3ml Solution Ud PO 650 mg Q6H PRN Administration temp.100.4&above;mild pain 1-3 Albuterol/Ipratropium 3 ml 08/16/16 14:00 08/22/16 13:23 Duoneb 3 Mg/0.5 Mg (3 Ml) Ud INH 3 ml RQ6 [facility] Administration Digoxin 0.25 mg 08/11/16 18:00 08/21/16 18:03 Lanoxin PO Not Given DAILY@1800 [facility] Furosemide 20 mg 08/21/16 12:00 08/22/16 10:09 Lasix PO 20 mg DAILY [facility] Administration Heparin Sodium (Porcine) 5,000 units 08/15/16 22:00 08/22/16 10:09 Heparin SC 5,000 units Q12 [facility] Administration Cefepime HCl 1 gm/ Dextrose 50 mls @ 100 mls/hr 08/14/16 12:00 08/22/16 12:20 IVPB 100 mls/hr Q12H [facility] Administration Sodium Chloride 1,000 mls @ 60 mls/hr 08/22/16 12:00 08/22/16 12:20 Sodium Chloride 0.9% IV 60 mls/hr .[id number] [facility] Administration Lisinopril 5 mg 08/17/16 10:00 08/22/16 10:08 Zestril PO 5 mg DAILY [facility] Administration Metoprolol Tartrate 25 mg 08/12/16 18:00 08/22/16 10:08 Lopressor PO 25 mg BID [facility] Administration Morphine Sulfate 2 mg 08/22/16 03:45 Morphine IVP Q4 PRN Pain, severe (8-10) Pantoprazole Sodium 40 mg 08/19/16 10:00 08/22/16 10:08 Protonix Ec Tab PO 40 mg DAILY [facility] Administration Prednisone 40 mg 08/23/16 10:00 Prednisone Tab PO 08/25/16 10:01 DAILY [facility] Prednisone 20 mg 08/26/16 10:00 Prednisone Tab PO 08/28/16 10:01 DAILY [facility] Prednisone 10 mg 08/29/16 10:00 Prednisone Tab PO 09/01/16 10:01 DAILY [facility] - Patient Studies Lab Studies: Microbiology Studies 08/19/16 18:27 Gram Stain - Final Pleural Fluid Body Fluid Culture - Final No growth. Lab Studies 08/22/16 08/22/16 Range/Units 06:36 06:33 WBC 20.3 H D (4.8-10.8) K/uL RBC 3.35 L (3.80-5.20) Mil/uL Hgb 12.1 (11.0-16.0) g/dL Hct 36.7 (34.0-47.0) % MCV 109.4 H (81.0-99.0) fL MCH 36.1 H (27.0-31.0) pg MCHC 33.0 (33.0-37.0) g/dL RDW 15.8 H (11.5-14.5) % Plt Count 301 (130-400) K/uL MPV 9.9 (7.2-11.7) fL Neut % (Auto) 94.1 H (50.0-75.0) % Lymph % (Auto) 0.8 L (20.0-40.0) % Campbell % (Auto) 4.7 (0.0-10.0) % Eos % (Auto) 0.0 (0.0-4.0) % Baso % (Auto) 0.4 (0.0-2.0) % Neut # 19.1 H (1.8-7.0) K/uL Lymph # 0.2 L (1.0-4.3) K/uL Campbell # 1.0 H (0.0-0.8) K/uL Eos # 0.0 (0.0-0.7) K/uL Baso # 0.1 (0.0-0.2) K/uL Neutrophils % (Manual) 93 H (50-75) % Lymphocytes % (Manual) 1 L (20-40) % Monocytes % (Manual) 6 (0-10) % Platelet Estimate Normal (NORMAL) Large Platelets Present Anisocytosis (manual) Slight Sodium 130 L (132-148) mmol/L Potassium 4.4 (3.6-5.2) mmol/L Chloride 95 L (98-107) mmol/L Carbon Dioxide 30 (22-30) mmol/L Anion Gap 9 L (10-20) BUN 24 H (7-17) mg/dL Creatinine 0.8 (0.7-1.2) MG/DL Est GFR ( Amer) > 60 Est GFR (Non-Af Amer) > 60 Random Glucose 119 H (65-105) mg/dL Calcium 8.0 L (8.6-10.4) mg/dl Phosphorus 3.2 (2.5-4.5) mg/dL Magnesium 1.8 (1.6-2.3) mg/dL Total Bilirubin 0.6 (0.2-1.3) mg/dL AST 18 (14-36) U/L ALT 35 (9-52) U/L Alkaline Phosphatase 139 H (38-126) U/L Total Protein 5.5 L (6.3-8.3) g/dL Albumin 2.6 L (3.5-5.0) g/dL Globulin 2.9 (2.2-3.9) gm/dL Albumin/Globulin Ratio 0.9 L (1.0-2.1) Laboratory Results - last 24 hr 08/22/16 08/22/16 06:33 06:36 WBC 20.3 H D RBC 3.35 L Hgb 12.1 Hct 36.7 MCV 109.4 H MCH 36.1 H MCHC 33.0 RDW 15.8 H Plt Count 301 MPV 9.9 Neut % (Auto) 94.1 H Lymph % (Auto) 0.8 L Campbell % (Auto) 4.7 Eos % (Auto) 0.0 Baso % (Auto) 0.4 Neut # 19.1 H Lymph # 0.2 L Campbell # 1.0 H Eos # 0.0 Baso # 0.1 Neutrophils % (Manual) 93 H Lymphocytes % (Manual) 1 L Monocytes % (Manual) 6 Platelet Estimate Normal Large Platelets Present Anisocytosis (manual) Slight Sodium 130 L Potassium 4.4 Chloride 95 L Carbon Dioxide 30 Anion Gap 9 L BUN 24 H Creatinine 0.8 Est GFR ( Amer) > 60 Est GFR (Non-Af Amer) > 60 Random Glucose 119 H Calcium 8.0 L Phosphorus 3.2 Magnesium 1.8 Total Bilirubin 0.6 AST 18 ALT 35 Alkaline Phosphatase 139 H Total Protein 5.5 L Albumin 2.6 L Globulin 2.9 Albumin/Globulin Ratio 0.9 L Review of Systems - Review of Systems All systems: reviewed and no additional remarkable complaints except Critical Care Progress Note - Nutrition Nutrition: Nutrition Category Date Time Status Heart Healthy Diet [DIET] Diets 08/20/16 Dinner Active Assessment/Plan (1) Pleural effusion due to CHF (congestive heart failure) Assessment and plan: 76-year-old female with past medical history of hypertension, A. fib, COPD ( still smokes), anxiety, recurrent falls. Presented with sepsis from UTI and bilateral hip fractures. Course complicated by cardiorespiratory arrest (08/14) , with successful resuscitation. Chest pigtail catheter placed (08/19) for large right pleural effusion. Neuro: Alert and following commands Pulm: COPD on IV steroids, transitioning to oral prednisone taper. CV: Systolic congestive heart failure (EF of 25-30%). Continue lisinopril by mouth daily and metoprolol by mouth twice a day. Hem: No acute issues Renal: Oliguric, starting normal saline at 60ml/hr. patient has poor oral intake. Continue daily oral diuretics, low-dose by mouth Lasix 20 mg daily. Slightly alkalotic, giving Diamox. Trying to keep patient on the dry side without compromising kidney function. Endo: No acute issues GI: Heart healthy diet ID: Empiric treatment with cefepime, leukocytosis possibly secondary to steroids , considering stopping antibiotics. DVT proph - heparin subcutaneous GI proph - Protonix jones for strict I/O's during acute illness Code status - full code Crtical Care Time spent 35 minutes Multi-disciplinary rounds were performed with house staff, nursing, speech therapy, respiratory therapy, pharmacy and nutrition with integrated input from the primary team/attending and other consulting services. The documented time is cumulative and includes review of patient data/exams/labs/chart review and examination of the patient on rounds and throughout the day; time is exclusive of any procedures or teaching time. Current Visit: Yes Status: Acute
[2016-08-22] MEDS: Digoxin 250 mcg (0.25 mg) Tab PO SCH (17:17)
--- NOTE | 2016-08-22 18:03 | CP.PCM.PN ---
Subjective - Date & Time of Evaluation Date of Evaluation: 08/22/16 Time of Evaluation: 08:02 Objective - Vital Signs/Intake and Output Vital Signs (last 24 hours): Temp Pulse Resp BP Pulse Ox 98.5 F 85 12 114/49 L 100 08/22/16 16:00 08/22/16 16:03 08/22/16 16:03 08/22/16 17:17 08/22/16 16:03 Intake and Output: 08/22/16 08/22/16 06:59 18:59 Intake Total 350 440 Output Total 460 295 Balance -110 145 - Medications Medications: Current Medications Acetaminophen (Tylenol 650mg/20.3ml Solution Ud) 650 mg PO Q6H PRN PRN Reason: temp.100.4&above;mild pain 1-3 Last Admin: 08/15/16 00:15 Dose: 650 mg Albuterol/Ipratropium (Duoneb 3 Mg/0.5 Mg (3 Ml) Ud) 3 ml INH RQ6 [facility] Last Admin: 08/22/16 13:23 Dose: 3 ml Digoxin (Lanoxin) 0.25 mg PO DAILY@1800 [facility] Last Admin: 08/22/16 17:17 Dose: 0.25 mg Furosemide (Lasix) 20 mg PO DAILY [facility] Last Admin: 08/22/16 10:09 Dose: 20 mg Heparin Sodium (Porcine) (Heparin) 5,000 units SC Q12 [facility] Last Admin: 08/22/16 10:09 Dose: 5,000 units Cefepime HCl 1 gm/ Dextrose 50 mls @ 100 mls/hr IVPB Q12H [facility] Last Admin: 08/22/16 12:20 Dose: 100 mls/hr Sodium Chloride (Sodium Chloride 0.9%) 1,000 mls @ 60 mls/hr IV .[id number] [facility] Last Admin: 08/22/16 12:20 Dose: 60 mls/hr Lisinopril (Zestril) 5 mg PO DAILY [facility] Last Admin: 08/22/16 10:08 Dose: 5 mg Metoprolol Tartrate (Lopressor) 25 mg PO BID [facility] Last Admin: 08/22/16 17:17 Dose: 25 mg Morphine Sulfate (Morphine) 2 mg IVP Q4 PRN PRN Reason: Pain, severe (8-10) Pantoprazole Sodium (Protonix Ec Tab) 40 mg PO DAILY [facility] Last Admin: 08/22/16 10:08 Dose: 40 mg Prednisone (Prednisone Tab) 40 mg PO DAILY [facility] Stop: 08/25/16 10:01 Prednisone (Prednisone Tab) 20 mg PO DAILY [facility] Stop: 08/28/16 10:01 Prednisone (Prednisone Tab) 10 mg PO DAILY [facility] Stop: 09/01/16 10:01 - Labs Labs: 08/22/16 06:36 08/22/16 06:33 PT 10.6 SECONDS (9.7-12.2) 08/21/16 06:11 INR 1.0 08/21/16 06:11 APTT 29 SECONDS (21-34) 08/21/16 06:11 Assessment and Plan (1) CHF exacerbation Status: Resolved
--- NOTE | 2016-08-22 22:13 | CP.PCM.PN ---
Subjective - Date & Time of Evaluation Date of Evaluation: 08/22/16 Time of Evaluation: 18:45 - Subjective Subjective: Patient less SOB. Right chest tube drainage 150 ml last 24 hours. WBC:20,ooo. Prednisone being weaned off. CXR: small pleural effusion. Poor appetite. poor urine output. Objective - Vital Signs/Intake and Output Vital Signs (last 24 hours): Temp Pulse Resp BP Pulse Ox 98.4 F 84 17 127/67 93 L 08/22/16 20:00 08/22/16 21:02 08/22/16 21:02 08/22/16 21:02 08/22/16 21:02 Intake and Output: 08/22/16 08/23/16 18:59 06:59 Intake Total 610 180 Output Total 385 255 Balance 225 -75 - Medications Medications: Current Medications Acetaminophen (Tylenol 650mg/20.3ml Solution Ud) 650 mg PO Q6H PRN PRN Reason: temp.100.4&above;mild pain 1-3 Last Admin: 08/15/16 00:15 Dose: 650 mg Albuterol/Ipratropium (Duoneb 3 Mg/0.5 Mg (3 Ml) Ud) 3 ml INH RQ6 [facility] Last Admin: 08/22/16 19:52 Dose: 3 ml Digoxin (Lanoxin) 0.25 mg PO DAILY@1800 [facility] Last Admin: 08/22/16 17:17 Dose: 0.25 mg Furosemide (Lasix) 20 mg PO DAILY [facility] Last Admin: 08/22/16 10:09 Dose: 20 mg Heparin Sodium (Porcine) (Heparin) 5,000 units SC Q12 [facility] Last Admin: 08/22/16 21:29 Dose: 5,000 units Cefepime HCl 1 gm/ Dextrose 50 mls @ 100 mls/hr IVPB Q12H [facility] Last Admin: 08/22/16 12:20 Dose: 100 mls/hr Sodium Chloride (Sodium Chloride 0.9%) 1,000 mls @ 60 mls/hr IV .[id number] [facility] Last Admin: 08/22/16 12:20 Dose: 60 mls/hr Lisinopril (Zestril) 5 mg PO DAILY [facility] Last Admin: 08/22/16 10:08 Dose: 5 mg Metoprolol Tartrate (Lopressor) 25 mg PO BID [facility] Last Admin: 08/22/16 17:17 Dose: 25 mg Morphine Sulfate (Morphine) 2 mg IVP Q4 PRN PRN Reason: Pain, severe (8-10) Pantoprazole Sodium (Protonix Ec Tab) 40 mg PO DAILY [facility] Last Admin: 08/22/16 10:08 Dose: 40 mg Prednisone (Prednisone Tab) 40 mg PO DAILY [facility] Stop: 08/25/16 10:01 Prednisone (Prednisone Tab) 20 mg PO DAILY [facility] Stop: 08/28/16 10:01 Prednisone (Prednisone Tab) 10 mg PO DAILY [facility] Stop: 09/01/16 10:01 - Labs Labs: 08/22/16 06:36 08/22/16 06:33 PT 10.6 SECONDS (9.7-12.2) 08/21/16 06:11 INR 1.0 08/21/16 06:11 APTT 29 SECONDS (21-34) 08/21/16 06:11 - Constitutional Appears: No Acute Distress, Chronically Ill - Head Exam Head Exam: NORMAL INSPECTION - Eye Exam Eye Exam: Normal appearance - ENT Exam ENT Exam: Normal Exam - Neck Exam Neck Exam: Normal Inspection - Respiratory Exam Additional comments: Rhonchi heard at both bases. - Cardiovascular Exam Cardiovascular Exam: REGULAR RHYTHM - GI/Abdominal Exam GI & Abdominal Exam: Soft, Normal Bowel Sounds - Extremities Exam Additional comments: Tender both hips and right leg external rotation. - Back Exam Back Exam: NORMAL INSPECTION - Neurological Exam Neurological Exam: Alert, Oriented x3 - Psychiatric Exam Psychiatric exam: Anxious - Skin Skin Exam: Abrasion Assessment and Plan (1) Closed fracture of greater trochanter of left femur Status: Acute (2) Dehydration Status: Resolved (3) Sepsis Status: Acute (4) Fall Status: Acute (5) Arrhythmia Status: Acute (6) Contusion of head Status: Acute (7) Garden grade IV closed subcapital fracture of proximal end of right femur Status: Acute (8) CHF exacerbation Status: Resolved (9) Acute respiratory failure Status: Resolved (10) Pleural effusion, right Assessment & Plan: To remove right chest tube. Status: Resolved
[2016-08-23] MEDS: Albuterol-Ipratrop 3 mg / 0.5 (3 ml) UD INH SCH ×4 (01:30→20:14)
[2016-08-23] MEDS: Sodium Chloride 0.9% 1,000 ML IV SCH ×2 (04:40→13:05)
[2016-08-23 06:56] LABS: BASO % 0.1 % (0.0-2.0); HEMOGLOBIN 11.3 g/dL (11.0-16.0); LYMPH # 0.2 K/uL (1.0-4.3); LYMPH % 1.5 % (20.0-40.0); MEAN CELL VOLUME 109.8 fL (81.0-99.0); MEAN CORPUSCULAR HEMOGLOBIN 35.7 pg (27.0-31.0); MEAN CORPUSCULAR HGB CONC 32.5 g/dL (33.0-37.0); MEAN PLATELET VOLUME 9.7 fL (7.2-11.7); MONO % 6.3 % (0.0-10.0); NEUT # 14.6 K/uL (1.8-7.0); NEUT % 92.1 % (50.0-75.0); PLATELET COUNT 280 K/uL (130-400); RBC 3.16 Mil/uL (3.80-5.20); RED CELL DISTRIBUTION WIDTH 15.8 % (11.5-14.5); WHITE BLOOD COUNT 15.8 K/uL (4.8-10.8)
--- NOTE | 2016-08-23 07:04 | CP.PCM.PN ---
Subjective - Date & Time of Evaluation Date of Evaluation: 08/23/16 Time of Evaluation: 07:04 Objective - Vital Signs/Intake and Output Vital Signs (last 24 hours): Temp Pulse Resp BP Pulse Ox 98.4 F 80 9 L 132/61 93 L 08/22/16 20:00 08/23/16 03:02 08/23/16 03:02 08/23/16 03:02 08/23/16 03:02 Intake and Output: 08/23/16 08/23/16 06:59 18:59 Intake Total 660 Output Total 635 Balance 25 - Medications Medications: Current Medications Acetaminophen (Tylenol 650mg/20.3ml Solution Ud) 650 mg PO Q6H PRN PRN Reason: temp.100.4&above;mild pain 1-3 Last Admin: 08/15/16 00:15 Dose: 650 mg Albuterol/Ipratropium (Duoneb 3 Mg/0.5 Mg (3 Ml) Ud) 3 ml INH RQ6 [facility] Last Admin: 08/23/16 01:30 Dose: Not Given Digoxin (Lanoxin) 0.25 mg PO DAILY@1800 [facility] Last Admin: 08/22/16 17:17 Dose: 0.25 mg Furosemide (Lasix) 20 mg PO DAILY [facility] Last Admin: 08/22/16 10:09 Dose: 20 mg Heparin Sodium (Porcine) (Heparin) 5,000 units SC Q12 [facility] Last Admin: 08/22/16 21:29 Dose: 5,000 units Cefepime HCl 1 gm/ Dextrose 50 mls @ 100 mls/hr IVPB Q12H [facility] Last Admin: 08/22/16 23:58 Dose: 100 mls/hr Sodium Chloride (Sodium Chloride 0.9%) 1,000 mls @ 60 mls/hr IV .[id number] [facility] Last Admin: 08/22/16 12:20 Dose: 60 mls/hr Lisinopril (Zestril) 5 mg PO DAILY [facility] Last Admin: 08/22/16 10:08 Dose: 5 mg Metoprolol Tartrate (Lopressor) 25 mg PO BID [facility] Last Admin: 08/22/16 17:17 Dose: 25 mg Morphine Sulfate (Morphine) 2 mg IVP Q4 PRN PRN Reason: Pain, severe (8-10) Last Admin: 08/22/16 23:55 Dose: 2 mg Pantoprazole Sodium (Protonix Ec Tab) 40 mg PO DAILY [facility] Last Admin: 08/22/16 10:08 Dose: 40 mg Prednisone (Prednisone Tab) 40 mg PO DAILY [facility] Stop: 08/25/16 10:01 Prednisone (Prednisone Tab) 20 mg PO DAILY [facility] Stop: 08/28/16 10:01 Prednisone (Prednisone Tab) 10 mg PO DAILY [facility] Stop: 09/01/16 10:01 - Labs Labs: 08/22/16 06:36 08/22/16 06:33 PT 10.6 SECONDS (9.7-12.2) 08/21/16 06:11 INR 1.0 08/21/16 06:11 APTT 29 SECONDS (21-34) 08/21/16 06:11 Assessment and Plan (1) CHF exacerbation Status: Resolved
[2016-08-23 07:15] LABS: ALBUMIN 2.4 g/dL (3.5-5.0)
[2016-08-23 07:18] LABS: AST/SGOT 26 U/L (14-36); GFR AFRICAN-AMERICAN > 60; GFR NON-AFRICAN AMERICAN > 60
[2016-08-23 07:19] LABS: ALB/GLOB RATIO 0.9 (1.0-2.1); ALT/SGPT 32 U/L (9-52); BLOOD UREA NITROGEN 23 mg/dL (7-17)
[2016-08-23 07:20] LABS: CALCIUM 7.7 mg/dl (8.6-10.4); MAGNESIUM 1.8 mg/dL (1.6-2.3)
[2016-08-23 08:43] LABS: LYMPHOCYTE 2 % (20-40); MONOCYTE 5 % (0-10); NEUTROPHIL 93 % (50-75); PLATELET ESTIMATE NORMAL (NORMAL); TOTAL CELLS COUNTED 100
[2016-08-23 08:44] LABS: ANISOCYTOSIS SLIGHT; BURR CELLS SLIGHT; GIANT PLATELETS PRESENT; HYPOCHROMIC SLIGHT; LARGE PLATELETS PRESENT; POIKILOCYTOSIS SLIGHT; POLYCHROMIC SLIGHT
[2016-08-23 08:45] LABS: OVALOCYTES SLIGHT; SCHISTOCYTES SLIGHT
[2016-08-23] MEDS: Pantoprazole 40 mg EC Tab PO SCH (10:19)
[2016-08-23 11:09] LABS: GLUCOSE PLEURAL FLUID 106 mg/dL; LDH PLEURAL FLUID 43 U/L; TOTAL PROTEIN PLEURAL FLUID <3.0 g/dL
--- NOTE | 2016-08-23 11:17 | RAD ---
PROCEDURE: CHEST RADIOGRAPH, 1 VIEW HISTORY: Pig tail; r/o infiltrates COMPARISON: 08/22/2016. FINDINGS: LUNGS: The lungs are hyperinflated and there is peribronchial thickening with chronic changes in both lungs. . There is a left retrocardiac opacity and blunting of the left costophrenic angle. PLEURA: No pneumothorax or pleural fluid seen. CARDIOVASCULAR: Normal. OSSEOUS STRUCTURES: There is diffuse bone demineralization and multilevel degenerative changes in the spine. There are multiple nondisplaced fractures in the left lower ribs. VISUALIZED UPPER ABDOMEN: Normal. OTHER FINDINGS: None. IMPRESSION: Nondisplaced fractures in the left lower ribs. Left lower lobe atelectasis/pneumonia and pleural effusion. COPD.
--- NOTE | 2016-08-23 17:10 | CP.CCUPN ---
CCU Subjective - Physician Review Events Since Last Encounter (Free Text): 08/23/16 17:07 patient is clinically stable, breathing spontaneously on room air. CCU Objective - Vital Signs / Intake & Output Vital Signs (Last 4 hours): Vital Signs Temp Pulse Resp BP Pulse Ox 08/23/16 16:03 92 H 20 100/70 08/23/16 16:00 97.5 F L 08/23/16 15:02 76 15 118/68 91 L 08/23/16 14:03 75 14 127/67 97 Intake and Output (Last 8hrs): Intake & Output 08/23/16 08/23/16 08/23/16 06:59 14:59 22:59 Intake Total 560 630 170 Output Total 660 400 65 Balance -100 230 105 Intake: Intake, IV Amount 500 480 120 Right PICC 500 480 120 Oral 60 150 50 Output: Chest Tube Drainage 20 Right Upper Anterior 20 Chest Urine 640 400 65 Urethral (Jones) 640 400 65 Other: # Bowel Movements 0 0 0 - Physical Exam Head: Positive for: Normocephalic, Ecchymosis, Other (Contusions over left side of face healing). Negative for: Atraumatic Pupils: Positive for: PERRL Extroacular Muscles: Positive for: EOMI Conjunctiva: Positive for: Normal Mouth: Positive for: Moist Mucous Membranes Neck: Positive for: Normal Range of Motion. Negative for: JVD, Bruit Respiratory/Chest: Positive for: Good Air Exchange, Decreased Breath Sounds ( bibasilar R > L), Rales (bibasilar ). Negative for: Clear to Auscultation, Respiratory Distress, Accessory Muscle Use, Wheezes, Retracting, Rhonchi Cardiovascular: Positive for: Regular Rate and Rhythm, Normal S1, S2, Peripheal Pulses Present. Negative for: Murmurs Abdomen: Positive for: Normal Bowel Sounds. Negative for: Tenderness, Distention, Peritoneal Signs, Rebound, Guarding Upper Extremity: Positive for: Normal Inspection, NORMAL PULSES, Neurovascularly Intact Lower Extremity: Positive for: NORMAL PULSES, Deformity (right leg shotened and externally rotated ), Neurovascularly Intact, Other (tenderness over b/l hips to palpation). Negative for: Normal Inspection, Normal ROM Neurological: Positive for: CN II-XII Intact, Speech Normal, Motor Func Grossly Intact Skin: Positive for: Warm, Dry, Normal Color. Negative for: Rashes Psychiatric: Positive for: Alert, Oriented x 3 - Medications Active Medications: Active Medications Generic Name Dose Route Start Last Admin Trade Name Freq PRN Reason Stop Dose Admin Acetaminophen 650 mg 08/14/16 23:50 08/15/16 00:15 Tylenol 650mg/20.3ml Solution Ud PO 650 mg Q6H PRN Administration temp.100.4&above;mild pain 1-3 Albuterol/Ipratropium 3 ml 08/16/16 14:00 08/23/16 13:42 Duoneb 3 Mg/0.5 Mg (3 Ml) Ud INH 3 ml RQ6 [place] Administration Digoxin 0.25 mg 08/11/16 18:00 08/22/16 17:17 Lanoxin PO 0.25 mg DAILY@1800 [place] Administration Heparin Sodium (Porcine) 5,000 units 08/15/16 22:00 08/23/16 10:20 Heparin SC 5,000 units Q12 [place] Administration Sodium Chloride 1,000 mls @ 50 mls/hr 08/23/16 12:41 08/23/16 13:05 Sodium Chloride 0.9% IV 50 mls/hr .Q20H [place] Administration Lisinopril 5 mg 08/17/16 10:00 08/23/16 10:18 Zestril PO 5 mg DAILY [place] Administration Metoprolol Tartrate 25 mg 08/12/16 18:00 08/23/16 10:19 Lopressor PO 25 mg BID [place] Administration Morphine Sulfate 2 mg 08/22/16 03:45 08/22/16 23:55 Morphine IVP 2 mg Q4 PRN Administration Pain, severe (8-10) Pantoprazole Sodium 40 mg 08/19/16 10:00 08/23/16 10:19 Protonix Ec Tab PO 40 mg DAILY [place] Administration Prednisone 40 mg 08/23/16 10:00 08/23/16 10:20 Prednisone Tab PO 08/25/16 10:01 40 mg DAILY [place] Administration Prednisone 20 mg 08/26/16 10:00 Prednisone Tab PO 08/28/16 10:01 DAILY [place] Prednisone 10 mg 08/29/16 10:00 Prednisone Tab PO 09/01/16 10:01 DAILY [place] - Patient Studies Lab Studies: Lab Studies 08/23/16 08/23/16 08/23/16 Range/Units 10:37 06:52 06:52 WBC 15.8 H (4.8-10.8) K/uL RBC 3.16 L (3.80-5.20) Mil/uL Hgb 11.3 (11.0-16.0) g/dL Hct 34.7 (34.0-47.0) % MCV 109.8 H (81.0-99.0) fL MCH 35.7 H (27.0-31.0) pg MCHC 32.5 L (33.0-37.0) g/dL RDW 15.8 H (11.5-14.5) % Plt Count 280 (130-400) K/uL MPV 9.7 (7.2-11.7) fL Neut % (Auto) 92.1 H (50.0-75.0) % Lymph % (Auto) 1.5 L (20.0-40.0) % [place] % (Auto) 6.3 (0.0-10.0) % Eos % (Auto) 0.0 (0.0-4.0) % Baso % (Auto) 0.1 (0.0-2.0) % Neut # 14.6 H (1.8-7.0) K/uL Lymph # 0.2 L (1.0-4.3) K/uL [place] # 1.0 H (0.0-0.8) K/uL Eos # 0.0 (0.0-0.7) K/uL Baso # 0.0 (0.0-0.2) K/uL Neutrophils % (Manual) 93 H (50-75) % Lymphocytes % (Manual) 2 L (20-40) % Monocytes % (Manual) 5 (0-10) % Platelet Estimate Normal (NORMAL) Large Platelets Present Giant Platelets Present Polychromasia Slight Hypochromasia (manual) Slight Poikilocytosis (manual Slight Anisocytosis (manual) Slight Macrocytosis (manual) Moderate Ovalocytes Slight Heri Cells Slight Schistocytes Slight Sodium 131 L (132-148) mmol/L Potassium 3.8 (3.6-5.2) mmol/L Chloride 98 (98-107) mmol/L Carbon Dioxide 29 (22-30) mmol/L Anion Gap 8 L (10-20) BUN 23 H (7-17) mg/dL Creatinine 0.8 (0.7-1.2) MG/DL Est GFR ( Amer) > 60 Est GFR (Non-Af Amer) > 60 Random Glucose 75 (65-105) mg/dL Calcium 7.7 L (8.6-10.4) mg/dl Phosphorus 3.0 (2.5-4.5) mg/dL Magnesium 1.8 (1.6-2.3) mg/dL Total Bilirubin 0.5 (0.2-1.3) mg/dL AST 26 (14-36) U/L ALT 32 (9-52) U/L Alkaline Phosphatase 124 (38-126) U/L Total Protein 5.2 L (6.3-8.3) g/dL Albumin 2.4 L (3.5-5.0) g/dL Globulin 2.8 (2.2-3.9) gm/dL Albumin/Globulin Ratio 0.9 L (1.0-2.1) Pleural Total Protein g/dL Pleural LDH U/L Pleural Glucose mg/dL Digoxin 1.5 (0.8-2.0) ng/mL 08/19/16 Range/Units 19:02 WBC (4.8-10.8) K/uL RBC (3.80-5.20) Mil/uL Hgb (11.0-16.0) g/dL Hct (34.0-47.0) % MCV (81.0-99.0) fL MCH (27.0-31.0) pg MCHC (33.0-37.0) g/dL RDW (11.5-14.5) % Plt Count (130-400) K/uL MPV (7.2-11.7) fL Neut % (Auto) (50.0-75.0) % Lymph % (Auto) (20.0-40.0) % [place] % (Auto) (0.0-10.0) % Eos % (Auto) (0.0-4.0) % Baso % (Auto) (0.0-2.0) % Neut # (1.8-7.0) K/uL Lymph # (1.0-4.3) K/uL [place] # (0.0-0.8) K/uL Eos # (0.0-0.7) K/uL Baso # (0.0-0.2) K/uL Neutrophils % (Manual) (50-75) % Lymphocytes % (Manual) (20-40) % Monocytes % (Manual) (0-10) % Platelet Estimate (NORMAL) Large Platelets Giant Platelets Polychromasia Hypochromasia (manual) Poikilocytosis (manual Anisocytosis (manual) Macrocytosis (manual) Ovalocytes Olga Cells Schistocytes Sodium (132-148) mmol/L Potassium (3.6-5.2) mmol/L Chloride (98-107) mmol/L Carbon Dioxide (22-30) mmol/L Anion Gap (10-20) BUN (7-17) mg/dL Creatinine (0.7-1.2) MG/DL Est GFR ( Amer) Est GFR (Non-Af Amer) Random Glucose (65-105) mg/dL Calcium (8.6-10.4) mg/dl Phosphorus (2.5-4.5) mg/dL Magnesium (1.6-2.3) mg/dL Total Bilirubin (0.2-1.3) mg/dL AST (14-36) U/L ALT (9-52) U/L Alkaline Phosphatase (38-126) U/L Total Protein (6.3-8.3) g/dL Albumin (3.5-5.0) g/dL Globulin (2.2-3.9) gm/dL Albumin/Globulin Ratio (1.0-2.1) Pleural Total Protein <3.0 g/dL Pleural LDH 43 U/L Pleural Glucose 106 mg/dL Digoxin (0.8-2.0) ng/mL Laboratory Results - last 24 hr 08/19/16 08/23/16 08/23/16 19:02 06:52 06:52 WBC 15.8 H RBC 3.16 L Hgb 11.3 Hct 34.7 MCV 109.8 H MCH 35.7 H MCHC 32.5 L RDW 15.8 H Plt Count 280 MPV 9.7 Neut % (Auto) 92.1 H Lymph % (Auto) 1.5 L [place] % (Auto) 6.3 Eos % (Auto) 0.0 Baso % (Auto) 0.1 Neut # 14.6 H Lymph # 0.2 L [place] # 1.0 H Eos # 0.0 Baso # 0.0 Neutrophils % (Manual) 93 H Lymphocytes % (Manual) 2 L Monocytes % (Manual) 5 Platelet Estimate Normal Large Platelets Present Giant Platelets Present Polychromasia Slight Hypochromasia (manual) Slight Poikilocytosis (manual Slight Anisocytosis (manual) Slight Macrocytosis (manual) Moderate Ovalocytes Slight Heri Cells Slight Schistocytes Slight Sodium 131 L Potassium 3.8 Chloride 98 Carbon Dioxide 29 Anion Gap 8 L BUN 23 H Creatinine 0.8 Est GFR ( Amer) > 60 Est GFR (Non-Af Amer) > 60 Random Glucose 75 Calcium 7.7 L Phosphorus 3.0 Magnesium 1.8 Total Bilirubin 0.5 AST 26 ALT 32 Alkaline Phosphatase 124 Total Protein 5.2 L Albumin 2.4 L Globulin 2.8 Albumin/Globulin Ratio 0.9 L Pleural Total Protein <3.0 Pleural LDH 43 Pleural Glucose 106 Digoxin 08/23/16 10:37 WBC RBC Hgb Hct MCV MCH MCHC RDW Plt Count MPV Neut % (Auto) Lymph % (Auto) [place] % (Auto) Eos % (Auto) Baso % (Auto) Neut # Lymph # [place] # Eos # Baso # Neutrophils % (Manual) Lymphocytes % (Manual) Monocytes % (Manual) Platelet Estimate Large Platelets Giant Platelets Polychromasia Hypochromasia (manual) Poikilocytosis (manual Anisocytosis (manual) Macrocytosis (manual) Ovalocytes Olga Cells Schistocytes Sodium Potassium Chloride Carbon Dioxide Anion Gap BUN Creatinine Est GFR ( Amer) Est GFR (Non-Af Amer) Random Glucose Calcium Phosphorus Magnesium Total Bilirubin AST ALT Alkaline Phosphatase Total Protein Albumin Globulin Albumin/Globulin Ratio Pleural Total Protein Pleural LDH Pleural Glucose Digoxin 1.5 Review of Systems - Review of Systems Review of Systems: all systems reviewed,no complaints. Critical Care Progress Note - Nutrition Nutrition: Nutrition Category Date Time Status Heart Healthy Diet [DIET] Diets 08/20/16 Dinner Active Assessment/Plan (1) Pleural effusion due to CHF (congestive heart failure) Assessment and plan: 76-year-old female with past medical history of hypertension, A. fib, COPD ( still smokes), anxiety, recurrent falls. Presented with sepsis from UTI and bilateral hip fractures. Course complicated by cardiorespiratory arrest (08/14) , with successful resuscitation. Chest pigtail catheter placed (08/19) for large right pleural effusion. Neuro: Alert and following commands Pulm: COPD on IV steroids, transitioning to oral prednisone taper. output from chest tubes minimal, chest x-ray clear while on water seal, will remove chest tube today. CV: Systolic congestive heart failure (EF of 25-30%). Continue lisinopril by mouth daily and metoprolol by mouth twice a day. Hem: No acute issues Renal: urine output improved with normal saline at 50ml/hr. patient has poor oral intake. stopping diuretics, Slightly alkalotic, giving Diamox. Trying to keep patient on the dry side without compromising kidney function. will restart diuretics once alkalosis resolved and urine output stable. Patient will most likely need low dose lasix with every other day dosing. Endo: No acute issues GI: Heart healthy diet ID: Empiric treatment with cefepime, leukocytosis possibly secondary to steroids , downtrending immediately after stopping IV steroids, if normalizes will stop antibiotics. DVT proph - heparin subcutaneous GI proph - Protonix jones for strict I/O's during acute illness Code status - full code Patient will be ready for the OR by Thursday, she will be a high risk patient for a low risk procedure. Crtical Care Time spent 35 minutes Multi-disciplinary rounds were performed with house staff, nursing, speech therapy, respiratory therapy, pharmacy and nutrition with integrated input from the primary team/attending and other consulting services. The documented time is cumulative and includes review of patient data/exams/labs/chart review and examination of the patient on rounds and throughout the day; time is exclusive of any procedures or teaching time. Current Visit: Yes Status: Acute
[2016-08-23] MEDS: Digoxin 250 mcg (0.25 mg) Tab PO SCH (17:15)
--- NOTE | 2016-08-23 23:29 | CP.PCM.PN ---
Subjective - Date & Time of Evaluation Date of Evaluation: 08/23/16 Time of Evaluation: 16:00 - Subjective Subjective: Patient alert, riented, in no acute respiratory distress. Minimal draining from the right chest tube. Afebrile. WBC decreases to 15,000. CXR: minimal left pleural effusion. Objective - Vital Signs/Intake and Output Vital Signs (last 24 hours): Temp Pulse Resp BP Pulse Ox 97.5 F L 89 18 119/69 95 08/23/16 16:00 08/23/16 21:03 08/23/16 21:03 08/23/16 21:03 08/23/16 21:00 Intake and Output: 08/23/16 08/24/16 18:59 06:59 Intake Total 920 50 Output Total 1510 100 Balance -590 -50 - Medications Medications: Current Medications Acetaminophen (Tylenol 650mg/20.3ml Solution Ud) 650 mg PO Q6H PRN PRN Reason: temp.100.4&above;mild pain 1-3 Last Admin: 08/15/16 00:15 Dose: 650 mg Albuterol/Ipratropium (Duoneb 3 Mg/0.5 Mg (3 Ml) Ud) 3 ml INH RQ6 [facility] Last Admin: 08/23/16 20:14 Dose: 3 ml Digoxin (Lanoxin) 0.25 mg PO DAILY@1800 [facility] Last Admin: 08/23/16 17:15 Dose: 0.25 mg Sodium Chloride (Sodium Chloride 0.9%) 1,000 mls @ 50 mls/hr IV .Q20H [facility] Last Admin: 08/23/16 13:05 Dose: 50 mls/hr Lisinopril (Zestril) 5 mg PO DAILY [facility] Last Admin: 08/23/16 10:18 Dose: 5 mg Metoprolol Tartrate (Lopressor) 25 mg PO BID [facility] Last Admin: 08/23/16 17:15 Dose: 25 mg Morphine Sulfate (Morphine) 2 mg IVP Q4 PRN PRN Reason: Pain, severe (8-10) Last Admin: 08/23/16 22:15 Dose: 2 mg Pantoprazole Sodium (Protonix Ec Tab) 40 mg PO DAILY [facility] Last Admin: 08/23/16 10:19 Dose: 40 mg Prednisone (Prednisone Tab) 40 mg PO DAILY [facility] Stop: 08/25/16 10:01 Last Admin: 08/23/16 10:20 Dose: 40 mg Prednisone (Prednisone Tab) 20 mg PO DAILY [place] Stop: 08/28/16 10:01 Prednisone (Prednisone Tab) 10 mg PO DAILY [place] Stop: 09/01/16 10:01 - Labs Labs: 08/23/16 06:52 08/23/16 06:52 PT 10.6 SECONDS (9.7-12.2) 08/21/16 06:11 INR 1.0 08/21/16 06:11 APTT 29 SECONDS (21-34) 08/21/16 06:11 - Constitutional Appears: Chronically Ill - Head Exam Head Exam: NORMAL INSPECTION - Eye Exam Eye Exam: Normal appearance - ENT Exam ENT Exam: Normal Exam - Neck Exam Neck Exam: Normal Inspection - Respiratory Exam Additional comments: Rhonchi heard at both bases. - Cardiovascular Exam Cardiovascular Exam: REGULAR RHYTHM - GI/Abdominal Exam GI & Abdominal Exam: Soft, Normal Bowel Sounds - Extremities Exam Additional comments: Tender both hips. No pedal edema. External rotation of the right leg. - Back Exam Back Exam: NORMAL INSPECTION - Neurological Exam Neurological Exam: Alert, Oriented x3 - Psychiatric Exam Psychiatric exam: Anxious - Skin Skin Exam: Dry, Intact, Normal Color, Warm Assessment and Plan (1) Closed fracture of greater trochanter of left femur Status: Acute (2) Dehydration Status: Resolved (3) Sepsis Status: Resolved (4) Fall Status: Acute (5) Arrhythmia Status: Resolved (6) Contusion of head Status: Acute (7) Garden grade IV closed subcapital fracture of proximal end of right femur Assessment & Plan: Scheduled for a right hip replacement on Thursday. Status: Acute (8) CHF exacerbation Status: Resolved (9) Acute respiratory failure Status: Resolved (10) Pleural effusion, right Status: Resolved
[2016-08-24] MEDS: Albuterol-Ipratrop 3 mg / 0.5 (3 ml) UD INH SCH ×4 (05:14→20:08)
[2016-08-24 06:26] LABS: BASO % 0.2 % (0.0-2.0); EOS % 0.1 % (0.0-4.0); HEMOGLOBIN 11.9 g/dL (11.0-16.0); LYMPH # 0.2 K/uL (1.0-4.3); LYMPH % 1.2 % (20.0-40.0); MEAN CELL VOLUME 109.7 fL (81.0-99.0); MEAN CORPUSCULAR HEMOGLOBIN 35.7 pg (27.0-31.0); MEAN CORPUSCULAR HGB CONC 32.6 g/dL (33.0-37.0); MEAN PLATELET VOLUME 10.1 fL (7.2-11.7); MONO # 0.7 K/uL (0.0-0.8); MONO % 4.5 % (0.0-10.0); NEUT # 15.4 K/uL (1.8-7.0); NRBC % 0.1 % (0.0-2.0); PLATELET COUNT 302 K/uL (130-400); RBC 3.33 Mil/uL (3.80-5.20); RED CELL DISTRIBUTION WIDTH 15.7 % (11.5-14.5); WHITE BLOOD COUNT 16.4 K/uL (4.8-10.8)
[2016-08-24 06:33] LABS: ALBUMIN 2.6 g/dL (3.5-5.0)
[2016-08-24 06:35] LABS: GFR AFRICAN-AMERICAN > 60; GFR NON-AFRICAN AMERICAN > 60
[2016-08-24 06:36] LABS: ALT/SGPT 29 U/L (9-52); AST/SGOT 18 U/L (14-36); BLOOD UREA NITROGEN 22 mg/dL (7-17)
[2016-08-24 06:37] LABS: MAGNESIUM 1.8 mg/dL (1.6-2.3)
[2016-08-24 06:43] LABS: ALB/GLOB RATIO 0.8 (1.0-2.1)
--- NOTE | 2016-08-24 06:47 | CP.PCM.PN ---
Subjective - Date & Time of Evaluation Date of Evaluation: 08/24/16 Time of Evaluation: 06:47 Objective - Vital Signs/Intake and Output Vital Signs (last 24 hours): Temp Pulse Resp BP Pulse Ox 97.4 F L 71 12 108/52 L 98 08/24/16 04:00 08/24/16 06:02 08/24/16 06:02 08/24/16 06:02 08/24/16 06:02 Intake and Output: 08/23/16 08/24/16 18:59 06:59 Intake Total 920 1440 Output Total 1510 606 Balance -590 834 - Medications Medications: Current Medications Acetaminophen (Tylenol 650mg/20.3ml Solution Ud) 650 mg PO Q6H PRN PRN Reason: temp.100.4&above;mild pain 1-3 Last Admin: 08/15/16 00:15 Dose: 650 mg Albuterol/Ipratropium (Duoneb 3 Mg/0.5 Mg (3 Ml) Ud) 3 ml INH RQ6 [facility] Last Admin: 08/24/16 05:14 Dose: Not Given Digoxin (Lanoxin) 0.25 mg PO DAILY@1800 [facility] Last Admin: 08/23/16 17:15 Dose: 0.25 mg Sodium Chloride (Sodium Chloride 0.9%) 1,000 mls @ 50 mls/hr IV .Q20H [facility] Last Admin: 08/23/16 13:05 Dose: 50 mls/hr Lisinopril (Zestril) 5 mg PO DAILY [facility] Last Admin: 08/23/16 10:18 Dose: 5 mg Metoprolol Tartrate (Lopressor) 25 mg PO BID [facility] Last Admin: 08/23/16 17:15 Dose: 25 mg Morphine Sulfate (Morphine) 2 mg IVP Q4 PRN PRN Reason: Pain, severe (8-10) Last Admin: 08/24/16 05:17 Dose: 2 mg Pantoprazole Sodium (Protonix Ec Tab) 40 mg PO DAILY [facility] Last Admin: 08/23/16 10:19 Dose: 40 mg Prednisone (Prednisone Tab) 40 mg PO DAILY [facility] Stop: 08/25/16 10:01 Last Admin: 08/23/16 10:20 Dose: 40 mg Prednisone (Prednisone Tab) 20 mg PO DAILY [facility] Stop: 08/28/16 10:01 Prednisone (Prednisone Tab) 10 mg PO DAILY [place] Stop: 09/01/16 10:01 - Labs Labs: 08/24/16 06:16 08/24/16 06:16 PT 10.6 SECONDS (9.7-12.2) 08/21/16 06:11 INR 1.0 08/21/16 06:11 APTT 29 SECONDS (21-34) 08/21/16 06:11 Assessment and Plan (1) CHF exacerbation Status: Resolved
[2016-08-24] MEDS: Sodium Chloride 0.9% 1,000 ML IV SCH ×2 (08:42→17:26)
[2016-08-24 08:54] LABS: BANDS 1 % (0-2); LYMPHOCYTE 1 % (20-40); MONOCYTE 5 % (0-10); NEUTROPHIL 93 % (50-75); PLATELET ESTIMATE NORMAL (NORMAL); TOTAL CELLS COUNTED 100
[2016-08-24 08:55] LABS: ANISOCYTOSIS SLIGHT; LARGE PLATELETS PRESENT
[2016-08-24 08:57] LABS: GIANT PLATELETS PRESENT; HYPOCHROMIC SLIGHT; POLYCHROMIC SLIGHT
--- NOTE | 2016-08-24 10:01 | RAD ---
HISTORY: post chest tube removal COMPARISON: 08/15/2016. FINDINGS: There has been interval extubation. The right PICC line terminates in the SVC. Status post removal of right chest tube. LUNGS: There is persistent left retrocardiac opacity and moderate left pleural effusion. The right lung is clear. Macro COPD. PLEURA: No significant pleural effusion identified, no pneumothorax apparent. CARDIOVASCULAR: The heart is normal in size. Atherosclerotic aortic arch calcifications are present. . OSSEOUS STRUCTURES: Within normal limits for the patient's age. VISUALIZED UPPER ABDOMEN: Normal. OTHER FINDINGS: None. IMPRESSION: Status post removal of right chest tube. Persistent left lower lobe atelectasis/ pneumonia and moderate pleural effusion.
[2016-08-24] MEDS: Pantoprazole 40 mg EC Tab PO SCH (10:10)
[2016-08-24] MEDS ORDERED: Etomidate 20 mg/10ml Inj IV ONE (11:01)
--- NOTE | 2016-08-24 11:30 | RAD ---
PROCEDURE: CHEST RADIOGRAPH, 1 VIEW HISTORY: intubation COMPARISON: 08/23/2016 FINDINGS: LUNGS: The endotracheal tube terminates 6.1 cm proximal to the priya. The nasogastric tube terminates in the stomach. The right PICC line terminates in the SVC. There is interval improved aeration in the left lower lobe with persistent consolidation. The lungs are hyperinflated and there is peribronchial thickening with chronic changes in both lungs. Lobular density in the left lower lobe. PLEURA: There is a small left pleural effusion. No pneumothorax or right pleural fluid seen. CARDIOVASCULAR: Normal. OSSEOUS STRUCTURES: No significant abnormalities. VISUALIZED UPPER ABDOMEN: Normal. OTHER FINDINGS: None. IMPRESSION: Improving left lower lobe pneumonia and pleural effusion. COPD. Lobular density in the left lower lobe is likely related to nipple shadow however follow-up PA radiograph with nipple markers is recommended.
[2016-08-24 13:09] LABS: ABG ALLEN TEST POS; ARTERIAL BLOOD GAS HEMOGLOBIN 11.3 g/dL (11.7-17.4); ARTERIAL BLOOD GAS O2 SAT 99.5 % (95-98); ARTERIAL BLOOD GAS PCO2 50 mm/Hg (35-45); ARTERIAL BLOOD GAS PH 7.35 (7.35-7.45); ARTERIAL BLOOD GAS PO2 118 mm/Hg (80-100); ARTERIAL BLOOD GAS TCO2 29.1 mmol/L (22-28)
[2016-08-24] MEDS: Digoxin 250 mcg (0.25 mg) Tab PO SCH (17:36)
--- NOTE | 2016-08-24 17:46 | CP.CCUPN ---
CCU Subjective - Physician Review Events Since Last Encounter (Free Text): 08/24/16 17:44 Patient suddenly become distress, hypotension, bradycardic. Immediately ambubag done As the patient become more weak, using accessory muscles, decided to intubate. Spoke to the patient's sister on the phone, she wanted everything to be done. Patient's lethargic, not responding. Subjective (Free Text): 08/24/16 17:45 Patient was intubated and placed on ventilator Critical Care Time Spent (in minutes): 45 CCU Objective - Vital Signs / Intake & Output Vital Signs (Last 4 hours): Vital Signs Temp Pulse Resp BP Pulse Ox 08/24/16 17:37 93/42 L 08/24/16 17:00 119 H 13 08/24/16 16:25 117 H 17 69/47 L 94 L 08/24/16 16:00 99.6 F 115 H 15 100 08/24/16 15:03 111 H 14 121/58 L 100 08/24/16 15:00 102 H 14 99 08/24/16 14:02 106 H 17 112/56 L 96 08/24/16 14:00 107 H 15 100 Intake and Output (Last 8hrs): Intake & Output 08/24/16 08/24/16 08/24/16 06:59 14:59 22:59 Intake Total 640 520 150 Output Total 368 450 175 Balance 272 70 -25 Intake: Intake, IV Amount 400 400 150 Right PICC 400 400 150 Oral 240 120 Tube Feeding 0 Output: Urine 368 450 175 Urethral (Martinez) 368 450 175 - Physical Exam Narrative Physical Exam (Free Text): 08/24/16 17:45 Vital signs reviewed No neck vein distention noted Bilateral rales CVS regular heart sound, no murmur noted Abdomen soft, nontender. Generalized edema Patient is somnolent, poorly responding Head: Positive for: Normocephalic, Ecchymosis, Other (Contusions over left side of face healing). Negative for: Atraumatic Pupils: Positive for: PERRL Extroacular Muscles: Positive for: EOMI Conjunctiva: Positive for: Normal Mouth: Positive for: Moist Mucous Membranes Neck: Positive for: Normal Range of Motion. Negative for: JVD, Bruit Respiratory/Chest: Positive for: Good Air Exchange, Decreased Breath Sounds ( bibasilar R > L), Rales (bibasilar ). Negative for: Clear to Auscultation, Respiratory Distress, Accessory Muscle Use, Wheezes, Retracting, Rhonchi Cardiovascular: Positive for: Regular Rate and Rhythm, Normal S1, S2, Peripheal Pulses Present. Negative for: Murmurs Abdomen: Positive for: Normal Bowel Sounds. Negative for: Tenderness, Distention, Peritoneal Signs, Rebound, Guarding Upper Extremity: Positive for: Normal Inspection, NORMAL PULSES, Neurovascularly Intact Lower Extremity: Positive for: NORMAL PULSES, Deformity (right leg shotened and externally rotated ), Neurovascularly Intact, Other (tenderness over b/l hips to palpation). Negative for: Normal Inspection, Normal ROM Neurological: Positive for: CN II-XII Intact, Speech Normal, Motor Func Grossly Intact Skin: Positive for: Warm, Dry, Normal Color. Negative for: Rashes Psychiatric: Positive for: Alert, Oriented x 3 - Medications Active Medications: Active Medications Generic Name Dose Route Start Last Admin Trade Name Freq PRN Reason Stop Dose Admin Acetaminophen 650 mg 08/14/16 23:50 08/15/16 00:15 Tylenol 650mg/20.3ml Solution Ud PO 650 mg Q6H PRN Administration temp.100.4&above;mild pain 1-3 Albuterol/Ipratropium 3 ml 08/16/16 14:00 08/24/16 14:22 Duoneb 3 Mg/0.5 Mg (3 Ml) Ud INH 3 ml RQ6 [place] Administration Digoxin 0.25 mg 08/11/16 18:00 08/24/16 17:36 Lanoxin PO 0.25 mg DAILY@1800 [place] Administration Sodium Chloride 1,000 mls @ 50 mls/hr 08/23/16 12:41 08/24/16 17:26 Sodium Chloride 0.9% IV 50 mls/hr .Q20H [place] Administration Lisinopril 5 mg 08/17/16 10:00 08/24/16 10:08 Zestril PO 5 mg DAILY [place] Administration Lorazepam 1 mg 08/24/16 13:13 08/24/16 14:47 Ativan IVP 1 mg Q4 PRN Administration Anxiety Metoprolol Tartrate 25 mg 08/12/16 18:00 08/24/16 17:37 Lopressor PO Not Given BID [place] Morphine Sulfate 2 mg 08/22/16 03:45 08/24/16 10:06 Morphine IVP 2 mg Q4 PRN Administration Pain, severe (8-10) Pantoprazole Sodium 40 mg 08/19/16 10:00 08/24/16 10:10 Protonix Ec Tab PO 40 mg DAILY [place] Administration Prednisone 40 mg 08/23/16 10:00 08/24/16 10:09 Prednisone Tab PO 08/25/16 10:01 40 mg DAILY [place] Administration Prednisone 20 mg 08/26/16 10:00 Prednisone Tab PO 08/28/16 10:01 DAILY [place] Prednisone 10 mg 08/29/16 10:00 Prednisone Tab PO 09/01/16 10:01 DAILY [place] - Patient Studies Lab Studies: Lab Studies 08/24/16 08/24/16 08/24/16 Range/Units 13:04 06:16 06:16 WBC 16.4 H (4.8-10.8) K/uL RBC 3.33 L (3.80-5.20) Mil/uL Hgb 11.9 (11.0-16.0) g/dL Hct 36.5 (34.0-47.0) % MCV 109.7 H (81.0-99.0) fL MCH 35.7 H (27.0-31.0) pg MCHC 32.6 L (33.0-37.0) g/dL RDW 15.7 H (11.5-14.5) % Plt Count 302 (130-400) K/uL MPV 10.1 (7.2-11.7) fL Neut % (Auto) 94.0 H (50.0-75.0) % Lymph % (Auto) 1.2 L (20.0-40.0) % [place] % (Auto) 4.5 (0.0-10.0) % Eos % (Auto) 0.1 (0.0-4.0) % Baso % (Auto) 0.2 (0.0-2.0) % Neut # 15.4 H (1.8-7.0) K/uL Lymph # 0.2 L (1.0-4.3) K/uL [place] # 0.7 (0.0-0.8) K/uL Eos # 0.0 (0.0-0.7) K/uL Baso # 0.0 (0.0-0.2) K/uL Neutrophils % (Manual) 93 H (50-75) % Band Neutrophils % 1 (0-2) % Lymphocytes % (Manual) 1 L (20-40) % Monocytes % (Manual) 5 (0-10) % Platelet Estimate Normal (NORMAL) Large Platelets Present Giant Platelets Present Polychromasia Slight Hypochromasia (manual) Slight Anisocytosis (manual) Slight Macrocytosis (manual) Slight Puncture Site Lr pCO2 50 H (35-45) mm/Hg pO2 118 H (80-100) mm/Hg HCO3 26.0 (21-28) mmol/L ABG pH 7.35 (7.35-7.45) ABG Total CO2 29.1 H (22-28) mmol/L ABG O2 Saturation 99.5 H (95-98) % ABG Base Excess 1.4 (-2.0-3.0) mmol/L ABG Hemoglobin 11.3 L (11.7-17.4) g/dL ABG Carboxyhemoglobin 1.7 H (0.5-1.5) % POC ABG HHb (Measured) 0.5 (0.0-5.0) % ABG Methemoglobin 1.5 (0.0-3.0) % Seng Test Pos A-a O2 Difference 533.0 mm/Hg Respiratory Index 4.5 Hgb O2 Saturation 96.3 (95.0-98.0) % Mechanical Rate 14 FiO2 100.0 % Tidal Volume 450 PEEP 5 Sodium 132 (132-148) mmol/L Potassium 3.4 L (3.6-5.2) mmol/L Chloride 98 (98-107) mmol/L Carbon Dioxide 27 (22-30) mmol/L Anion Gap 10 (10-20) BUN 22 H (7-17) mg/dL Creatinine 0.6 L (0.7-1.2) MG/DL Est GFR ( Amer) > 60 Est GFR (Non-Af Amer) > 60 Random Glucose 84 (65-105) mg/dL Calcium 8.0 L (8.6-10.4) mg/dl Phosphorus 3.1 (2.5-4.5) mg/dL Magnesium 1.8 (1.6-2.3) mg/dL Total Bilirubin 0.6 (0.2-1.3) mg/dL AST 18 (14-36) U/L ALT 29 (9-52) U/L Alkaline Phosphatase 133 H (38-126) U/L Total Protein 5.7 L (6.3-8.3) g/dL Albumin 2.6 L (3.5-5.0) g/dL Globulin 3.1 (2.2-3.9) gm/dL Albumin/Globulin Ratio 0.8 L (1.0-2.1) Laboratory Results - last 24 hr 08/24/16 08/24/16 08/24/16 06:16 06:16 13:04 WBC 16.4 H RBC 3.33 L Hgb 11.9 Hct 36.5 MCV 109.7 H MCH 35.7 H MCHC 32.6 L RDW 15.7 H Plt Count 302 MPV 10.1 Neut % (Auto) 94.0 H Lymph % (Auto) 1.2 L [place] % (Auto) 4.5 Eos % (Auto) 0.1 Baso % (Auto) 0.2 Neut # 15.4 H Lymph # 0.2 L [place] # 0.7 Eos # 0.0 Baso # 0.0 Neutrophils % (Manual) 93 H Band Neutrophils % 1 Lymphocytes % (Manual) 1 L Monocytes % (Manual) 5 Platelet Estimate Normal Large Platelets Present Giant Platelets Present Polychromasia Slight Hypochromasia (manual) Slight Anisocytosis (manual) Slight Macrocytosis (manual) Slight Puncture Site Lr pCO2 50 H pO2 118 H HCO3 26.0 ABG pH 7.35 ABG Total CO2 29.1 H ABG O2 Saturation 99.5 H ABG Base Excess 1.4 ABG Hemoglobin 11.3 L ABG Carboxyhemoglobin 1.7 H POC ABG HHb (Measured) 0.5 ABG Methemoglobin 1.5 Seng Test Pos A-a O2 Difference 533.0 Respiratory Index 4.5 Hgb O2 Saturation 96.3 Mechanical Rate 14 FiO2 100.0 Tidal Volume 450 PEEP 5 Sodium 132 Potassium 3.4 L Chloride 98 Carbon Dioxide 27 Anion Gap 10 BUN 22 H Creatinine 0.6 L Est GFR ( Amer) > 60 Est GFR (Non-Af Amer) > 60 Random Glucose 84 Calcium 8.0 L Phosphorus 3.1 Magnesium 1.8 Total Bilirubin 0.6 AST 18 ALT 29 Alkaline Phosphatase 133 H Total Protein 5.7 L Albumin 2.6 L Globulin 3.1 Albumin/Globulin Ratio 0.8 L Critical Care Progress Note - Nutrition Nutrition: Nutrition Category Date Time Status Heart Healthy Diet [DIET] Diets 08/20/16 Dinner Active Assessment/Plan (1) Arrhythmia Current Visit: Yes Status: Resolved (2) Closed fracture of greater trochanter of left femur Assessment and plan: 76-year-old female with history of osteoporosis, osteoarthritis, severe weakness and a recurrent fall, complicated with the bilateral hip fracture admitted to the hospital. Patient is currently having significant the weakness, and also associated pain secondary to the pain and fracture. Patient had a history of recurrent fall. Underlying neurological condition cannot be ruled out. She is at very high risk for DVT and pulmonary embolism. Currently on anticoagulation. Patient will need a definite treatment for the bilateral hip fracture. Awaiting cardiology clearance. Currently mobility is restricted because of the severe pain. pain control. We'll continue the current treatment and will follow the patient Patient with the acute heart failure. Improving at this time with IV Lasix. Overall prognosis is guarded. Patient will need a surgical intervention. Awaiting cardiology clearance in the morning. Surgical intervention currently pending Patient surgical intervention pending at this time. Likely now have recurrent aspiration pneumonia, respiratory failure. On ventilator. Continue the supportive care. Patient is at high risk for mortality, continue the treatment Current Visit: Yes Status: Acute (3) Contusion of head Current Visit: Yes Status: Acute (4) Fall Current Visit: Yes Status: Acute
[2016-08-25] MEDS: Acetaminophen 650mg/20.3ml solution UD PO PRN (00:45)
[2016-08-25] MEDS: Sodium Chloride 0.9% 1,000 ML IV SCH (04:40)
[2016-08-25 06:29] LABS: ABG ALLEN TEST POS; ARTERIAL BLOOD GAS HCO3 25.6 mmol/L (21-28); ARTERIAL BLOOD GAS HEMOGLOBIN 10.1 g/dL (11.7-17.4); ARTERIAL BLOOD GAS O2 SAT 99.4 % (95-98); ARTERIAL BLOOD GAS PCO2 39 mm/Hg (35-45); ARTERIAL BLOOD GAS PH 7.42 (7.35-7.45); ARTERIAL BLOOD GAS PO2 131 mm/Hg (80-100); ARTERIAL BLOOD GAS TCO2 26.5 mmol/L (22-28)
[2016-08-25 06:39] LABS: BASO % 0.2 % (0.0-2.0); EOS % 0.1 % (0.0-4.0); HEMOGLOBIN 9.3 g/dL (11.0-16.0); LYMPH # 0.2 K/uL (1.0-4.3); LYMPH % 1.1 % (20.0-40.0); MEAN CELL VOLUME 109.4 fL (81.0-99.0); MEAN CORPUSCULAR HEMOGLOBIN 36.1 pg (27.0-31.0); MEAN PLATELET VOLUME 10.1 fL (7.2-11.7); MONO # 0.4 K/uL (0.0-0.8); MONO % 3.1 % (0.0-10.0); NEUT # 13.5 K/uL (1.8-7.0); NEUT % 95.5 % (50.0-75.0); PLATELET COUNT 207 K/uL (130-400); RBC 2.58 Mil/uL (3.80-5.20); RED CELL DISTRIBUTION WIDTH 15.7 % (11.5-14.5); WHITE BLOOD COUNT 14.1 K/uL (4.8-10.8)
[2016-08-25 06:45] LABS: ALBUMIN 1.9 g/dL (3.5-5.0)
[2016-08-25 06:48] LABS: ALB/GLOB RATIO 0.8 (1.0-2.1); ALT/SGPT 24 U/L (9-52); AST/SGOT 21 U/L (14-36); BLOOD UREA NITROGEN 21 mg/dL (7-17); GFR AFRICAN-AMERICAN > 60; GFR NON-AFRICAN AMERICAN > 60
[2016-08-25 06:49] LABS: CALCIUM 7.4 mg/dl (8.6-10.4); MAGNESIUM 1.7 mg/dL (1.6-2.3)
--- NOTE | 2016-08-25 08:13 | CP.CCUPN ---
CCU Subjective - Physician Review Events Since Last Encounter (Free Text): 08/25/16 08:10 Patient was intubated yesterday because of the respiratory failure, complicated with pneumonia. Patient having much secretions from the ET tube. Episodes of tachycardia noted. Low-grade fever. Currently on ventilator, 100% FiO2 Subjective (Free Text): 08/24/16 17:45 Patient was intubated and placed on ventilator CCU Objective - Vital Signs / Intake & Output Vital Signs (Last 4 hours): Vital Signs Pulse Resp BP Pulse Ox 08/25/16 07:01 95 H 14 103/50 L 100 08/25/16 06:01 102 H 14 111/54 L 100 08/25/16 06:00 98 H 14 109/47 L 100 08/25/16 05:00 90 14 109/47 L 100 Intake and Output (Last 8hrs): Intake & Output 08/24/16 08/25/16 08/25/16 22:59 06:59 14:59 Intake Total 400 500 50 Output Total 375 230 Balance 25 270 50 Weight 126 lb 1.671 oz Intake: Intake, IV Amount 400 400 50 Right PICC 400 400 50 Oral 100 Output: Urine 375 230 Urethral (Martinez) 375 230 - Physical Exam Narrative Physical Exam (Free Text): 08/25/16 08:11 Vital signs reviewed No neck vein distention noted Bilateral wheezing noted CVS regular heart sound, no murmur noted Abdomen soft, nontender. Extremities no pedal edema Sedated Head: Positive for: Normocephalic, Ecchymosis, Other (Contusions over left side of face healing). Negative for: Atraumatic Pupils: Positive for: PERRL Extroacular Muscles: Positive for: EOMI Conjunctiva: Positive for: Normal Mouth: Positive for: Moist Mucous Membranes Neck: Positive for: Normal Range of Motion. Negative for: JVD, Bruit Respiratory/Chest: Positive for: Good Air Exchange, Decreased Breath Sounds ( bibasilar R > L), Rales (bibasilar ). Negative for: Clear to Auscultation, Respiratory Distress, Accessory Muscle Use, Wheezes, Retracting, Rhonchi Cardiovascular: Positive for: Regular Rate and Rhythm, Normal S1, S2, Peripheal Pulses Present. Negative for: Murmurs Abdomen: Positive for: Normal Bowel Sounds. Negative for: Tenderness, Distention, Peritoneal Signs, Rebound, Guarding Upper Extremity: Positive for: Normal Inspection, NORMAL PULSES, Neurovascularly Intact Lower Extremity: Positive for: NORMAL PULSES, Deformity (right leg shotened and externally rotated ), Neurovascularly Intact, Other (tenderness over b/l hips to palpation). Negative for: Normal Inspection, Normal ROM Neurological: Positive for: CN II-XII Intact, Speech Normal, Motor Func Grossly Intact Skin: Positive for: Warm, Dry, Normal Color. Negative for: Rashes Psychiatric: Positive for: Alert, Oriented x 3 - Medications Active Medications: Active Medications Generic Name Dose Route Start Last Admin Trade Name Freq PRN Reason Stop Dose Admin Acetaminophen 650 mg 08/14/16 23:50 08/25/16 00:45 Tylenol 650mg/20.3ml Solution Ud PO 650 mg Q6H PRN Administration temp.100.4&above;mild pain 1-3 Albuterol/Ipratropium 3 ml 08/16/16 14:00 08/24/16 20:08 Duoneb 3 Mg/0.5 Mg (3 Ml) Ud INH 3 ml RQ6 [place] Administration Digoxin 0.25 mg 08/11/16 18:00 08/24/16 17:36 Lanoxin PO 0.25 mg DAILY@1800 [place] Administration Sodium Chloride 1,000 mls @ 50 mls/hr 08/23/16 12:41 08/25/16 04:40 Sodium Chloride 0.9% IV 08/25/16 16:00 Not Given .Q20H [place] Imipenem/Cilastatin Sodium 250 100 mls @ 100 mls/hr 08/25/16 08:15 mg/ Sodium Chloride IVPB Q8 [place] Lisinopril 5 mg 08/17/16 10:00 08/24/16 10:08 Zestril PO 5 mg DAILY [place] Administration Lorazepam 1 mg 08/24/16 13:13 08/24/16 14:47 Ativan IVP 1 mg Q4 PRN Administration Anxiety Metoprolol Tartrate 25 mg 08/12/16 18:00 08/24/16 17:37 Lopressor PO Not Given BID [place] Morphine Sulfate 2 mg 08/22/16 03:45 08/24/16 22:30 Morphine IVP 2 mg Q4 PRN Administration Pain, severe (8-10) Pantoprazole Sodium 40 mg 08/19/16 10:00 08/24/16 10:10 Protonix Ec Tab PO 40 mg DAILY [place] Administration - Patient Studies Lab Studies: Lab Studies 08/25/16 08/25/16 08/25/16 Range/Units 06:24 06:24 06:20 WBC 14.1 H (4.8-10.8) K/uL RBC 2.58 L (3.80-5.20) Mil/uL Hgb 9.3 L D (11.0-16.0) g/dL Hct 28.2 L (34.0-47.0) % MCV 109.4 H (81.0-99.0) fL MCH 36.1 H (27.0-31.0) pg MCHC 33.0 (33.0-37.0) g/dL RDW 15.7 H (11.5-14.5) % Plt Count 207 (130-400) K/uL MPV 10.1 (7.2-11.7) fL Neut % (Auto) 95.5 H (50.0-75.0) % Lymph % (Auto) 1.1 L (20.0-40.0) % [place] % (Auto) 3.1 (0.0-10.0) % Eos % (Auto) 0.1 (0.0-4.0) % Baso % (Auto) 0.2 (0.0-2.0) % Neut # 13.5 H (1.8-7.0) K/uL Lymph # 0.2 L (1.0-4.3) K/uL [place] # 0.4 (0.0-0.8) K/uL Eos # 0.0 (0.0-0.7) K/uL Baso # 0.0 (0.0-0.2) K/uL Neutrophils % (Manual) (50-75) % Band Neutrophils % (0-2) % Lymphocytes % (Manual) (20-40) % Monocytes % (Manual) (0-10) % Platelet Estimate (NORMAL) Large Platelets Giant Platelets Polychromasia Hypochromasia (manual) Anisocytosis (manual) Macrocytosis (manual) Puncture Site Rradial pCO2 39 (35-45) mm/Hg pO2 131 H (80-100) mm/Hg HCO3 25.6 (21-28) mmol/L ABG pH 7.42 (7.35-7.45) ABG Total CO2 26.5 (22-28) mmol/L ABG O2 Saturation 99.4 H (95-98) % ABG Base Excess 0.8 (-2.0-3.0) mmol/L ABG Hemoglobin 10.1 L (11.7-17.4) g/dL ABG Carboxyhemoglobin 1.2 (0.5-1.5) % POC ABG HHb (Measured) 0.6 (0.0-5.0) % ABG Methemoglobin 1.3 (0.0-3.0) % Seng Test Pos A-a O2 Difference 533.0 mm/Hg Respiratory Index 4.1 Hgb O2 Saturation 96.9 (95.0-98.0) % Mechanical Rate 14 FiO2 100.0 % Tidal Volume 450 PEEP 5 Sodium 133 (132-148) mmol/L Potassium 3.2 L (3.6-5.2) mmol/L Chloride 100 (98-107) mmol/L Carbon Dioxide 28 (22-30) mmol/L Anion Gap 8 L (10-20) BUN 21 H (7-17) mg/dL Creatinine 0.8 (0.7-1.2) MG/DL Est GFR ( Amer) > 60 Est GFR (Non-Af Amer) > 60 Random Glucose 60 L (65-105) mg/dL Calcium 7.4 L (8.6-10.4) mg/dl Phosphorus 2.3 L (2.5-4.5) mg/dL Magnesium 1.7 (1.6-2.3) mg/dL Total Bilirubin 0.5 (0.2-1.3) mg/dL AST 21 (14-36) U/L ALT 24 (9-52) U/L Alkaline Phosphatase 102 (38-126) U/L Total Protein 4.4 L (6.3-8.3) g/dL Albumin 1.9 L D (3.5-5.0) g/dL Globulin 2.5 (2.2-3.9) gm/dL Albumin/Globulin Ratio 0.8 L (1.0-2.1) 08/24/16 08/24/16 Range/Units 13:04 06:16 WBC (4.8-10.8) K/uL RBC (3.80-5.20) Mil/uL Hgb (11.0-16.0) g/dL Hct (34.0-47.0) % MCV (81.0-99.0) fL MCH (27.0-31.0) pg MCHC (33.0-37.0) g/dL RDW (11.5-14.5) % Plt Count (130-400) K/uL MPV (7.2-11.7) fL Neut % (Auto) (50.0-75.0) % Lymph % (Auto) (20.0-40.0) % [place] % (Auto) (0.0-10.0) % Eos % (Auto) (0.0-4.0) % Baso % (Auto) (0.0-2.0) % Neut # (1.8-7.0) K/uL Lymph # (1.0-4.3) K/uL [place] # (0.0-0.8) K/uL Eos # (0.0-0.7) K/uL Baso # (0.0-0.2) K/uL Neutrophils % (Manual) 93 H (50-75) % Band Neutrophils % 1 (0-2) % Lymphocytes % (Manual) 1 L (20-40) % Monocytes % (Manual) 5 (0-10) % Platelet Estimate Normal (NORMAL) Large Platelets Present Giant Platelets Present Polychromasia Slight Hypochromasia (manual) Slight Anisocytosis (manual) Slight Macrocytosis (manual) Slight Puncture Site Lr pCO2 50 H (35-45) mm/Hg pO2 118 H (80-100) mm/Hg HCO3 26.0 (21-28) mmol/L ABG pH 7.35 (7.35-7.45) ABG Total CO2 29.1 H (22-28) mmol/L ABG O2 Saturation 99.5 H (95-98) % ABG Base Excess 1.4 (-2.0-3.0) mmol/L ABG Hemoglobin 11.3 L (11.7-17.4) g/dL ABG Carboxyhemoglobin 1.7 H (0.5-1.5) % POC ABG HHb (Measured) 0.5 (0.0-5.0) % ABG Methemoglobin 1.5 (0.0-3.0) % Seng Test Pos A-a O2 Difference 533.0 mm/Hg Respiratory Index 4.5 Hgb O2 Saturation 96.3 (95.0-98.0) % Mechanical Rate 14 FiO2 100.0 % Tidal Volume 450 PEEP 5 Sodium (132-148) mmol/L Potassium (3.6-5.2) mmol/L Chloride (98-107) mmol/L Carbon Dioxide (22-30) mmol/L Anion Gap (10-20) BUN (7-17) mg/dL Creatinine (0.7-1.2) MG/DL Est GFR ( Amer) Est GFR (Non-Af Amer) Random Glucose (65-105) mg/dL Calcium (8.6-10.4) mg/dl Phosphorus (2.5-4.5) mg/dL Magnesium (1.6-2.3) mg/dL Total Bilirubin (0.2-1.3) mg/dL AST (14-36) U/L ALT (9-52) U/L Alkaline Phosphatase (38-126) U/L Total Protein (6.3-8.3) g/dL Albumin (3.5-5.0) g/dL Globulin (2.2-3.9) gm/dL Albumin/Globulin Ratio (1.0-2.1) Laboratory Results - last 24 hr 08/24/16 08/24/16 08/25/16 06:16 13:04 06:20 WBC RBC Hgb Hct MCV MCH MCHC RDW Plt Count MPV Neut % (Auto) Lymph % (Auto) [place] % (Auto) Eos % (Auto) Baso % (Auto) Neut # Lymph # [place] # Eos # Baso # Neutrophils % (Manual) 93 H Band Neutrophils % 1 Lymphocytes % (Manual) 1 L Monocytes % (Manual) 5 Platelet Estimate Normal Large Platelets Present Giant Platelets Present Polychromasia Slight Hypochromasia (manual) Slight Anisocytosis (manual) Slight Macrocytosis (manual) Slight Puncture Site Lr Rradial pCO2 50 H 39 pO2 118 H 131 H HCO3 26.0 25.6 ABG pH 7.35 7.42 ABG Total CO2 29.1 H 26.5 ABG O2 Saturation 99.5 H 99.4 H ABG Base Excess 1.4 0.8 ABG Hemoglobin 11.3 L 10.1 L ABG Carboxyhemoglobin 1.7 H 1.2 POC ABG HHb (Measured) 0.5 0.6 ABG Methemoglobin 1.5 1.3 Seng Test Pos Pos A-a O2 Difference 533.0 533.0 Respiratory Index 4.5 4.1 Hgb O2 Saturation 96.3 96.9 Mechanical Rate 14 14 FiO2 100.0 100.0 Tidal Volume 450 450 PEEP 5 5 Sodium Potassium Chloride Carbon Dioxide Anion Gap BUN Creatinine Est GFR ( Amer) Est GFR (Non-Af Amer) Random Glucose Calcium Phosphorus Magnesium Total Bilirubin AST ALT Alkaline Phosphatase Total Protein Albumin Globulin Albumin/Globulin Ratio 08/25/16 08/25/16 06:24 06:24 WBC 14.1 H RBC 2.58 L Hgb 9.3 L D Hct 28.2 L MCV 109.4 H MCH 36.1 H MCHC 33.0 RDW 15.7 H Plt Count 207 MPV 10.1 Neut % (Auto) 95.5 H Lymph % (Auto) 1.1 L [place] % (Auto) 3.1 Eos % (Auto) 0.1 Baso % (Auto) 0.2 Neut # 13.5 H Lymph # 0.2 L [place] # 0.4 Eos # 0.0 Baso # 0.0 Neutrophils % (Manual) Band Neutrophils % Lymphocytes % (Manual) Monocytes % (Manual) Platelet Estimate Large Platelets Giant Platelets Polychromasia Hypochromasia (manual) Anisocytosis (manual) Macrocytosis (manual) Puncture Site pCO2 pO2 HCO3 ABG pH ABG Total CO2 ABG O2 Saturation ABG Base Excess ABG Hemoglobin ABG Carboxyhemoglobin POC ABG HHb (Measured) ABG Methemoglobin Seng Test A-a O2 Difference Respiratory Index Hgb O2 Saturation Mechanical Rate FiO2 Tidal Volume PEEP Sodium 133 Potassium 3.2 L Chloride 100 Carbon Dioxide 28 Anion Gap 8 L BUN 21 H Creatinine 0.8 Est GFR ( Amer) > 60 Est GFR (Non-Af Amer) > 60 Random Glucose 60 L Calcium 7.4 L Phosphorus 2.3 L Magnesium 1.7 Total Bilirubin 0.5 AST 21 ALT 24 Alkaline Phosphatase 102 Total Protein 4.4 L Albumin 1.9 L D Globulin 2.5 Albumin/Globulin Ratio 0.8 L Assessment/Plan (1) Arrhythmia Current Visit: Yes Status: Resolved (2) Closed fracture of greater trochanter of left femur Assessment and plan: 76-year-old female with history of osteoporosis, osteoarthritis, severe weakness and a recurrent fall, complicated with the bilateral hip fracture admitted to the hospital. Patient is currently having significant the weakness, and also associated pain secondary to the pain and fracture. Patient had a history of recurrent fall. Underlying neurological condition cannot be ruled out. She is at very high risk for DVT and pulmonary embolism. Currently on anticoagulation. Patient will need a definite treatment for the bilateral hip fracture. Awaiting cardiology clearance. Currently mobility is restricted because of the severe pain. pain control. We'll continue the current treatment and will follow the patient Patient surgical intervention pending at this time. Likely now have recurrent aspiration pneumonia, respiratory failure. On ventilator. Continue the supportive care. Patient is at high risk for mortality, continue the treatment X-ray of the chest showing evidence of worsening infiltrate on the right lung. Possible hospital-acquired pneumonia, ventilator acquired pneumonia. We will get a sputum culture. We'll start the patient on antibiotic. DVT and GI prophylaxis. I spoke to the patient's sister on the phone, explained, she wanted everything to be done. Overall prognosis very poor, patient has a high mortality given the complex medical problems. Current Visit: Yes Status: Acute (3) Contusion of head Current Visit: Yes Status: Acute (4) Fall Current Visit: Yes Status: Acute
[2016-08-25] MEDS: Imipenem/Cilastatin 250 MG in Sodium Chloride 100 ML IVPB SCH ×3 (08:48→21:46)
[2016-08-25 08:50] LABS: ANISOCYTOSIS SLIGHT; BANDS 7 % (0-2); HYPOCHROMIC SLIGHT; LYMPHOCYTE 2 % (20-40); MONOCYTE 4 % (0-10); NEUTROPHIL 87 % (50-75); PLATELET ESTIMATE NORMAL (NORMAL); POIKILOCYTOSIS SLIGHT; TOTAL CELLS COUNTED 100
[2016-08-25 08:51] LABS: TARGET CELLS SLIGHT
[2016-08-25] MEDS: Albuterol-Ipratrop 3 mg / 0.5 (3 ml) UD INH SCH ×3 (08:55→20:30)
[2016-08-25] MEDS: Pantoprazole 40 mg EC Tab PO SCH (09:10)
--- NOTE | 2016-08-25 09:12 | RAD ---
PROCEDURE: CHEST RADIOGRAPH, 1 VIEW HISTORY: vent COMPARISON: 08/24/2016 FINDINGS: LUNGS: Lines and tubes in stable position. Biapical pleural thickening with upper lobe granulomatous changes. Hyperinflation suggestive for COPD and or emphysematous changes. Diffuse increased interstitial lung markings. Scattered nodular densities throughout both lungs. Prominent consolidative changes in the mid to lower lung zones bilaterally with a suggestion of a small to moderate left and small right pleural effusion. Additional consolidative opacity at the lateral aspect of the right midlung zone. PLEURA: As above. CARDIOVASCULAR: Calcification at the aortic knob. Mild cardiomegaly. OSSEOUS STRUCTURES: Degenerative changes in the spine and shoulders. VISUALIZED UPPER ABDOMEN: Normal. OTHER FINDINGS: None. IMPRESSION: Lines and tubes in stable position. Biapical pleural thickening with upper lobe granulomatous changes. Hyperinflation suggestive for COPD and or emphysematous changes. Diffuse increased interstitial lung markings. Scattered nodular densities throughout both lungs. Prominent consolidative changes in the mid to lower lung zones bilaterally with a suggestion of a small to moderate left and small right pleural effusion. Additional consolidative opacity at the lateral aspect of the right midlung zone.
--- NOTE | 2016-08-25 12:31 | CP.PCM.PN ---
Subjective - Date & Time of Evaluation Date of Evaluation: 08/25/16 Time of Evaluation: 12:28 - Subjective Subjective: Progress Note for Dr. Peacock Pt seen and examined at bedside. Pt was intubated yesterday secondary to respiratory failure. BP low overnight with SBP in the 80's and 90's after morphine given. Objective - Vital Signs/Intake and Output Vital Signs (last 24 hours): Temp Pulse Resp BP Pulse Ox 97.3 F L 94 H 14 109/52 L 100 08/25/16 12:00 08/25/16 12:00 08/25/16 12:00 08/25/16 12:00 08/25/16 12:00 Intake and Output: 08/25/16 08/25/16 06:59 18:59 Intake Total 700 560 Output Total 380 145 Balance 320 415 - Medications Medications: Current Medications Acetaminophen (Tylenol 650mg/20.3ml Solution Ud) 650 mg PO Q6H PRN PRN Reason: temp.100.4&above;mild pain 1-3 Last Admin: 08/25/16 00:45 Dose: 650 mg Albuterol/Ipratropium (Duoneb 3 Mg/0.5 Mg (3 Ml) Ud) 3 ml INH RQ6 [facility] Last Admin: 08/25/16 08:55 Dose: 3 ml Digoxin (Lanoxin) 0.25 mg PO DAILY@1800 [facility] Last Admin: 08/24/16 17:36 Dose: 0.25 mg Famotidine (Pepcid) 20 mg PO BID [facility] Last Admin: 08/25/16 09:10 Dose: 20 mg Heparin Sodium (Porcine) (Heparin) 5,000 units SC Q8 [facility] Last Admin: 08/25/16 08:47 Dose: 5,000 units Sodium Chloride (Sodium Chloride 0.9%) 1,000 mls @ 50 mls/hr IV .Q20H [facility] Stop: 08/25/16 16:00 Last Admin: 08/25/16 04:40 Dose: Not Given Imipenem/Cilastatin Sodium 250 (mg/ Sodium Chloride) 100 mls @ 100 mls/hr IVPB Q8 [facility] Last Admin: 08/25/16 08:48 Dose: 100 mls/hr Lisinopril (Zestril) 5 mg PO DAILY [facility] Last Admin: 08/25/16 09:11 Dose: 5 mg Lorazepam (Ativan) 1 mg IVP Q4 PRN PRN Reason: Anxiety Last Admin: 08/24/16 14:47 Dose: 1 mg Metoprolol Tartrate (Lopressor) 25 mg PO BID [facility] Last Admin: 08/25/16 09:11 Dose: 25 mg Morphine Sulfate (Morphine) 2 mg IVP Q4 PRN PRN Reason: Pain, severe (8-10) Last Admin: 08/24/16 22:30 Dose: 2 mg Pantoprazole Sodium (Protonix Ec Tab) 40 mg PO DAILY [facility] Last Admin: 08/25/16 09:10 Dose: 40 mg - Labs Labs: 08/25/16 06:24 08/25/16 06:24 PT 10.6 SECONDS (9.7-12.2) 08/21/16 06:11 INR 1.0 08/21/16 06:11 APTT 29 SECONDS (21-34) 08/21/16 06:11 - Constitutional Appears: Toxic, In Acute Distress - ENT Exam ENT Exam: Mucous Membranes Moist - Respiratory Exam Respiratory Exam: Decreased Breath Sounds, Rhonchi - Cardiovascular Exam Cardiovascular Exam: RRR, +S1, +S2 - GI/Abdominal Exam GI & Abdominal Exam: Soft, Normal Bowel Sounds. absent: Tenderness - Extremities Exam Extremities Exam: absent: Pedal Edema - Neurological Exam Additional comments: Intubated - Skin Skin Exam: Warm Assessment and Plan (1) CHF exacerbation Assessment & Plan: CHF exacerbation resolved Pt remains high risk for surgery with very poor prognosis as pt was intubated yesterday. Continue to monitor closely and medically optimize patient Continue current medical regimen Status: Resolved
[2016-08-25] MEDS: Digoxin 250 mcg (0.25 mg) Tab PO SCH (17:13)
--- NOTE | 2016-08-25 19:47 | CP.PCM.PN ---
Subjective - Date & Time of Evaluation Date of Evaluation: 08/25/16 Time of Evaluation: 19:44 - Subjective Subjective: Patient remains on respirator. She was intubated last night because of an acute respiratory distress. CXR reveals new Right middle lobe and right lower lobe infitrates. Objective - Vital Signs/Intake and Output Vital Signs (last 24 hours): Temp Pulse Resp BP Pulse Ox 98.1 F 89 18 118/64 98 08/25/16 16:00 08/25/16 19:00 08/25/16 19:00 08/25/16 19:00 08/25/16 19:00 Intake and Output: 08/25/16 08/26/16 18:59 06:59 Intake Total 1085 85 Output Total 310 30 Balance 775 55 - Medications Medications: Current Medications Acetaminophen (Tylenol 650mg/20.3ml Solution Ud) 650 mg PO Q6H PRN PRN Reason: temp.100.4&above;mild pain 1-3 Last Admin: 08/25/16 00:45 Dose: 650 mg Albuterol/Ipratropium (Duoneb 3 Mg/0.5 Mg (3 Ml) Ud) 3 ml INH RQ6 [facility] Last Admin: 08/25/16 13:29 Dose: 3 ml Digoxin (Lanoxin) 0.25 mg PO DAILY@1800 [facility] Last Admin: 08/25/16 17:13 Dose: 0.25 mg Famotidine (Pepcid) 20 mg PO BID [facility] Last Admin: 08/25/16 17:13 Dose: 20 mg Heparin Sodium (Porcine) (Heparin) 5,000 units SC Q8 [facility] Last Admin: 08/25/16 13:10 Dose: 5,000 units Imipenem/Cilastatin Sodium 250 (mg/ Sodium Chloride) 100 mls @ 100 mls/hr IVPB Q8 [facility] Last Admin: 08/25/16 13:08 Dose: 100 mls/hr Lisinopril (Zestril) 5 mg PO DAILY [facility] Last Admin: 08/25/16 09:11 Dose: 5 mg Lorazepam (Ativan) 1 mg IVP Q4 PRN PRN Reason: Anxiety Last Admin: 08/24/16 14:47 Dose: 1 mg Metoprolol Tartrate (Lopressor) 25 mg PO BID [facility] Last Admin: 08/25/16 17:13 Dose: 25 mg Morphine Sulfate (Morphine) 2 mg IVP Q4 PRN PRN Reason: Pain, severe (8-10) Last Admin: 08/24/16 22:30 Dose: 2 mg Pantoprazole Sodium (Protonix Ec Tab) 40 mg PO DAILY [place] Last Admin: 08/25/16 09:10 Dose: 40 mg Potassium Chloride (Potassium Chloride Oral Soln) 40 meq NG ONCE ONE Stop: 08/26/16 19:25 - Labs Labs: 08/25/16 06:24 08/25/16 06:24 PT 10.6 SECONDS (9.7-12.2) 08/21/16 06:11 INR 1.0 08/21/16 06:11 APTT 29 SECONDS (21-34) 08/21/16 06:11 - Constitutional Appears: Chronically Ill - Head Exam Head Exam: NORMAL INSPECTION - Eye Exam Eye Exam: Normal appearance - ENT Exam ENT Exam: Normal Exam - Neck Exam Neck Exam: Normal Inspection - Respiratory Exam Respiratory Exam: Rhonchi Additional comments: Rhonchi bilaterallly. - Cardiovascular Exam Cardiovascular Exam: REGULAR RHYTHM - GI/Abdominal Exam GI & Abdominal Exam: Soft, Normal Bowel Sounds - Rectal Exam Rectal Exam: Deferred - Exam Exam: NORMAL INSPECTION - Extremities Exam Additional comments: External rotation of the right leg. Blateral hip tenderness. - Back Exam Back Exam: NORMAL INSPECTION - Neurological Exam Neurological Exam: Altered - Skin Skin Exam: Warm Assessment and Plan (1) Closed fracture of greater trochanter of left femur Status: Acute (2) Dehydration Status: Resolved (3) Sepsis Status: Resolved (4) Fall Status: Acute (5) Arrhythmia Status: Resolved (6) Contusion of head Status: Acute (7) Garden grade IV closed subcapital fracture of proximal end of right femur Status: Acute (8) CHF exacerbation Status: Resolved (9) Acute respiratory failure Assessment & Plan: Patient was intubated last night due to an acute respirator failure, probably from aspiration. To continue ventilation support, pulmonary toilet, and bronchodilators. Status: Acute (10) Pleural effusion, right Status: Resolved (11) Right middle lobe pneumonia Assessment & Plan: Due aspiration, resulting in an acute respiratory failure. Now on IV antibiotics and on respirator Fio2 90 %, PEEP 5. Status: Acute
[2016-08-25] MEDS ORDERED: Potassium Chloride 20 mEq/15 ml LIQ UD NG ONE (20:15)
[2016-08-25] MEDS ORDERED: Albumin Human 25% (12.5 gm/50 ml) IV ONE (23:31)
[2016-08-26] MEDS: Albuterol-Ipratrop 3 mg / 0.5 (3 ml) UD INH SCH ×4 (01:15→19:43)
[2016-08-26] MEDS ORDERED: Sodium Chloride 0.9% 1,000 ML IV SCH (05:00)
[2016-08-26] MEDS: Imipenem/Cilastatin 250 MG in Sodium Chloride 100 ML IVPB SCH ×3 (05:23→21:03)
[2016-08-26 05:28] LABS: ABG ALLEN TEST POS; ARTERIAL BLOOD GAS HCO3 26.8 mmol/L (21-28); ARTERIAL BLOOD GAS HEMOGLOBIN 9.2 g/dL (11.7-17.4); ARTERIAL BLOOD GAS O2 SAT 99.7 % (95-98); ARTERIAL BLOOD GAS PCO2 43 mm/Hg (35-45); ARTERIAL BLOOD GAS PH 7.41 (7.35-7.45); ARTERIAL BLOOD GAS PO2 138 mm/Hg (80-100); ARTERIAL BLOOD GAS TCO2 28.6 mmol/L (22-28)
[2016-08-26 06:22] LABS: BASO % 0.4 % (0.0-2.0); EOS % 0.4 % (0.0-4.0); HEMOGLOBIN 9.3 g/dL (11.0-16.0); LYMPH # 0.2 K/uL (1.0-4.3); MEAN CELL VOLUME 108.9 fL (81.0-99.0); MEAN CORPUSCULAR HEMOGLOBIN 36.4 pg (27.0-31.0); MEAN CORPUSCULAR HGB CONC 33.4 g/dL (33.0-37.0); MEAN PLATELET VOLUME 9.5 fL (7.2-11.7); MONO # 0.4 K/uL (0.0-0.8); MONO % 3.6 % (0.0-10.0); NEUT # 9.5 K/uL (1.8-7.0); NEUT % 93.6 % (50.0-75.0); PLATELET COUNT 224 K/uL (130-400); RBC 2.55 Mil/uL (3.80-5.20); RED CELL DISTRIBUTION WIDTH 15.6 % (11.5-14.5); WHITE BLOOD COUNT 10.2 K/uL (4.8-10.8)
[2016-08-26] MEDS: Sodium Chloride 0.9% 1,000 ML IV SCH ×2 (06:23→06:24)
[2016-08-26 06:26] LABS: ALBUMIN 2.2 g/dL (3.5-5.0)
[2016-08-26 06:29] LABS: ALB/GLOB RATIO 0.9 (1.0-2.1); AST/SGOT 21 U/L (14-36); GFR AFRICAN-AMERICAN > 60; GFR NON-AFRICAN AMERICAN > 60
[2016-08-26 06:30] LABS: ALT/SGPT 29 U/L (9-52); BLOOD UREA NITROGEN 17 mg/dL (7-17); CALCIUM 7.5 mg/dl (8.6-10.4); MAGNESIUM 1.9 mg/dL (1.6-2.3)
--- NOTE | 2016-08-26 06:52 | CP.CCUPN ---
<EvelinSierra - Last Filed: 08/26/16 10:36> CCU Subjective - Physician Review Events Since Last Encounter (Free Text): 08/26/16 10:37 Patient seen and examined at bedside. Afebrile overnight. Patient is intubated on vent (14, 450, 5, 80%) on no sedation. Patient is arousable and opens eyes to name. As per nursing patient grimaces and was given morphine for pain this AM. Tolerating feeds @ 35cc/hr with no residual. Patient has much secretions from ET tube. Patient was tachycardic overnight Low SBP 95 after morphine was given this AM Patient has poor UO ~75cc from 7a-11am. ROS unobtainable. CCU Objective - Vital Signs / Intake & Output Vital Signs (Last 4 hours): Vital Signs Temp Pulse Resp BP Pulse Ox 08/26/16 06:00 90 14 100 08/26/16 05:45 93 H 14 130/55 L 100 08/26/16 05:15 97 H 13 126/59 L 100 08/26/16 05:00 87 14 100 08/26/16 04:45 91 H 14 117/56 L 100 08/26/16 04:16 99 H 16 107/59 L 100 08/26/16 04:00 98.7 F 96 H 12 100 08/26/16 03:45 89 14 103/55 L 100 08/26/16 03:15 90 13 100/51 L 100 08/26/16 03:00 97 H 14 100 Intake and Output (Last 8hrs): Intake & Output 08/25/16 08/25/16 08/26/16 14:59 22:59 06:59 Intake Total 710 890 730 Output Total 185 280 110 Balance 525 610 620 Weight 128 lb 4.944 oz Intake: Intake, IV Amount 500 500 450 Right PICC 500 500 450 Tube Feeding 110 290 280 Other 100 100 Output: Urine 185 280 110 Urethral (Martinez) 185 280 110 Other: # Bowel Movements 1 - Physical Exam Head: Positive for: Normocephalic, Ecchymosis, Other (Contusions over left side of face healing). Negative for: Atraumatic Pupils: Positive for: PERRL Extroacular Muscles: Positive for: Other (opens eyes to name) Conjunctiva: Positive for: Normal Mouth: Positive for: Dry, Other (ET tube in place- secretions noted) Neck: Negative for: JVD, Bruit Respiratory/Chest: Positive for: Good Air Exchange, Decreased Breath Sounds ( bibasilar R > L), Rales (bibasilar ), Other (intubated on vent). Negative for: Clear to Auscultation, Respiratory Distress, Accessory Muscle Use, Wheezes, Retracting, Rhonchi Cardiovascular: Positive for: Normal S1, S2, Peripheal Pulses Present, Tachycardic. Negative for: Murmurs, Irregular Rhythm Abdomen: Positive for: Normal Bowel Sounds. Negative for: Tenderness, Distention, Peritoneal Signs, Rebound, Guarding Upper Extremity: Positive for: Normal Inspection, NORMAL PULSES. Negative for: Edema Lower Extremity: Positive for: NORMAL PULSES, Deformity (right leg shortened and externally rotated ), Other (grimaces when b/l hips palpated; offloading boots secure). Negative for: Normal Inspection, Edema, Normal ROM Neurological: Positive for: Other (responds to name and grimaces) Skin: Positive for: Warm, Dry, Normal Color, Other (b/l ecchymosis on face noted ). Negative for: Rashes Psychiatric: Positive for: Alert (responds to name ) - Medications Active Medications: Active Medications Generic Name Dose Route Start Last Admin Trade Name Manpreet PRN Reason Stop Dose Admin Acetaminophen 650 mg 08/14/16 23:50 08/25/16 00:45 Tylenol 650mg/20.3ml Solution Ud PO 650 mg Q6H PRN Administration temp.100.4&above;mild pain 1-3 Albuterol/Ipratropium 3 ml 08/16/16 14:00 08/26/16 01:15 Duoneb 3 Mg/0.5 Mg (3 Ml) Ud INH 3 ml RQ6 [place] Administration Digoxin 0.25 mg 08/11/16 18:00 08/25/16 17:13 Lanoxin PO 0.25 mg DAILY@1800 [place] Administration Famotidine 20 mg 08/25/16 10:00 08/25/16 17:13 Pepcid PO 20 mg BID [place] Administration Heparin Sodium (Porcine) 5,000 units 08/25/16 08:30 08/26/16 05:24 Heparin SC 5,000 units Q8 [place] Administration Imipenem/Cilastatin Sodium 250 100 mls @ 100 mls/hr 08/25/16 08:15 08/26/16 05:23 mg/ Sodium Chloride IVPB 100 mls/hr Q8 [place] Administration Sodium Chloride 1,000 mls @ 50 mls/hr 08/25/16 23:30 08/26/16 06:24 Sodium Chloride 0.9% IV 50 mls/hr .Q20H [place] Administration Lisinopril 5 mg 08/17/16 10:00 08/25/16 09:11 Zestril PO 5 mg DAILY [place] Administration Lorazepam 1 mg 08/24/16 13:13 08/25/16 22:19 Ativan IVP 1 mg Q4 PRN Administration Anxiety Metoprolol Tartrate 25 mg 08/12/16 18:00 08/25/16 17:13 Lopressor PO 25 mg BID [place] Administration Morphine Sulfate 2 mg 08/22/16 03:45 08/26/16 02:50 Morphine IVP 2 mg Q4 PRN Administration Pain, severe (8-10) Pantoprazole Sodium 40 mg 08/19/16 10:00 08/25/16 09:10 Protonix Ec Tab PO 40 mg DAILY [place] Administration - Patient Studies Lab Studies: Lab Studies 08/26/16 08/26/16 08/26/16 Range/Units 06:12 06:12 05:07 WBC 10.2 (4.8-10.8) K/uL RBC 2.55 L (3.80-5.20) Mil/uL Hgb 9.3 L (11.0-16.0) g/dL Hct 27.8 L (34.0-47.0) % MCV 108.9 H (81.0-99.0) fL MCH 36.4 H (27.0-31.0) pg MCHC 33.4 (33.0-37.0) g/dL RDW 15.6 H (11.5-14.5) % Plt Count 224 (130-400) K/uL MPV 9.5 (7.2-11.7) fL Neut % (Auto) 93.6 H (50.0-75.0) % Lymph % (Auto) 2.0 L (20.0-40.0) % [place] % (Auto) 3.6 (0.0-10.0) % Eos % (Auto) 0.4 (0.0-4.0) % Baso % (Auto) 0.4 (0.0-2.0) % Neut # 9.5 H (1.8-7.0) K/uL Lymph # 0.2 L (1.0-4.3) K/uL [place] # 0.4 (0.0-0.8) K/uL Eos # 0.0 (0.0-0.7) K/uL Baso # 0.0 (0.0-0.2) K/uL Neutrophils % (Manual) (50-75) % Band Neutrophils % (0-2) % Lymphocytes % (Manual) (20-40) % Monocytes % (Manual) (0-10) % Platelet Estimate (NORMAL) Hypochromasia (manual) Poikilocytosis (manual Anisocytosis (manual) Macrocytosis (manual) Target Cells Puncture Site L rad pCO2 43 (35-45) mm/Hg pO2 138 H (80-100) mm/Hg HCO3 26.8 (21-28) mmol/L ABG pH 7.41 (7.35-7.45) ABG Total CO2 28.6 H (22-28) mmol/L ABG O2 Saturation 99.7 H (95-98) % ABG Base Excess 2.4 (-2.0-3.0) mmol/L ABG Hemoglobin 9.2 L (11.7-17.4) g/dL ABG Carboxyhemoglobin 1.4 (0.5-1.5) % POC ABG HHb (Measured) 0.3 (0.0-5.0) % ABG Methemoglobin 0.9 (0.0-3.0) % Seng Test Pos A-a O2 Difference 450.0 mm/Hg Respiratory Index 3.3 Hgb O2 Saturation 97.5 (95.0-98.0) % Mechanical Rate 14 FiO2 90.0 % Tidal Volume 450 PEEP 5 Sodium 137 (132-148) mmol/L Potassium 3.6 (3.6-5.2) mmol/L Chloride 106 (98-107) mmol/L Carbon Dioxide 26 (22-30) mmol/L Anion Gap 8 L (10-20) BUN 17 (7-17) mg/dL Creatinine 0.6 L (0.7-1.2) MG/DL Est GFR ( Amer) > 60 Est GFR (Non-Af Amer) > 60 POC Glucose (mg/dL) (65-110) mg/dL Random Glucose 103 (65-105) mg/dL Calcium 7.5 L (8.6-10.4) mg/dl Phosphorus 1.4 L (2.5-4.5) mg/dL Magnesium 1.9 (1.6-2.3) mg/dL Total Bilirubin 0.4 (0.2-1.3) mg/dL AST 21 (14-36) U/L ALT 29 (9-52) U/L Alkaline Phosphatase 126 D (38-126) U/L Total Protein 4.7 L (6.3-8.3) g/dL Albumin 2.2 L (3.5-5.0) g/dL Globulin 2.4 (2.2-3.9) gm/dL Albumin/Globulin Ratio 0.9 L (1.0-2.1) 08/25/16 08/25/16 08/25/16 Range/Units 17:59 11:37 08:59 WBC (4.8-10.8) K/uL RBC (3.80-5.20) Mil/uL Hgb (11.0-16.0) g/dL Hct (34.0-47.0) % MCV (81.0-99.0) fL MCH (27.0-31.0) pg MCHC (33.0-37.0) g/dL RDW (11.5-14.5) % Plt Count (130-400) K/uL MPV (7.2-11.7) fL Neut % (Auto) (50.0-75.0) % Lymph % (Auto) (20.0-40.0) % [place] % (Auto) (0.0-10.0) % Eos % (Auto) (0.0-4.0) % Baso % (Auto) (0.0-2.0) % Neut # (1.8-7.0) K/uL Lymph # (1.0-4.3) K/uL [place] # (0.0-0.8) K/uL Eos # (0.0-0.7) K/uL Baso # (0.0-0.2) K/uL Neutrophils % (Manual) (50-75) % Band Neutrophils % (0-2) % Lymphocytes % (Manual) (20-40) % Monocytes % (Manual) (0-10) % Platelet Estimate (NORMAL) Hypochromasia (manual) Poikilocytosis (manual Anisocytosis (manual) Macrocytosis (manual) Target Cells Puncture Site pCO2 (35-45) mm/Hg pO2 (80-100) mm/Hg HCO3 (21-28) mmol/L ABG pH (7.35-7.45) ABG Total CO2 (22-28) mmol/L ABG O2 Saturation (95-98) % ABG Base Excess (-2.0-3.0) mmol/L ABG Hemoglobin (11.7-17.4) g/dL ABG Carboxyhemoglobin (0.5-1.5) % POC ABG HHb (Measured) (0.0-5.0) % ABG Methemoglobin (0.0-3.0) % Seng Test A-a O2 Difference mm/Hg Respiratory Index Hgb O2 Saturation (95.0-98.0) % Mechanical Rate FiO2 % Tidal Volume PEEP Sodium (132-148) mmol/L Potassium (3.6-5.2) mmol/L Chloride (98-107) mmol/L Carbon Dioxide (22-30) mmol/L Anion Gap (10-20) BUN (7-17) mg/dL Creatinine (0.7-1.2) MG/DL Est GFR ( Amer) Est GFR (Non-Af Amer) POC Glucose (mg/dL) 85 71 65 (65-110) mg/dL Random Glucose (65-105) mg/dL Calcium (8.6-10.4) mg/dl Phosphorus (2.5-4.5) mg/dL Magnesium (1.6-2.3) mg/dL Total Bilirubin (0.2-1.3) mg/dL AST (14-36) U/L ALT (9-52) U/L Alkaline Phosphatase (38-126) U/L Total Protein (6.3-8.3) g/dL Albumin (3.5-5.0) g/dL Globulin (2.2-3.9) gm/dL Albumin/Globulin Ratio (1.0-2.1) 08/25/16 08/25/16 Range/Units 06:24 06:24 WBC 14.1 H (4.8-10.8) K/uL RBC 2.58 L (3.80-5.20) Mil/uL Hgb 9.3 L D (11.0-16.0) g/dL Hct 28.2 L (34.0-47.0) % MCV 109.4 H (81.0-99.0) fL MCH 36.1 H (27.0-31.0) pg MCHC 33.0 (33.0-37.0) g/dL RDW 15.7 H (11.5-14.5) % Plt Count 207 (130-400) K/uL MPV 10.1 (7.2-11.7) fL Neut % (Auto) 95.5 H (50.0-75.0) % Lymph % (Auto) 1.1 L (20.0-40.0) % [place] % (Auto) 3.1 (0.0-10.0) % Eos % (Auto) 0.1 (0.0-4.0) % Baso % (Auto) 0.2 (0.0-2.0) % Neut # 13.5 H (1.8-7.0) K/uL Lymph # 0.2 L (1.0-4.3) K/uL [place] # 0.4 (0.0-0.8) K/uL Eos # 0.0 (0.0-0.7) K/uL Baso # 0.0 (0.0-0.2) K/uL Neutrophils % (Manual) 87 H (50-75) % Band Neutrophils % 7 H (0-2) % Lymphocytes % (Manual) 2 L (20-40) % Monocytes % (Manual) 4 (0-10) % Platelet Estimate Normal (NORMAL) Hypochromasia (manual) Slight Poikilocytosis (manual Slight Anisocytosis (manual) Slight Macrocytosis (manual) Slight Target Cells Slight Puncture Site pCO2 (35-45) mm/Hg pO2 (80-100) mm/Hg HCO3 (21-28) mmol/L ABG pH (7.35-7.45) ABG Total CO2 (22-28) mmol/L ABG O2 Saturation (95-98) % ABG Base Excess (-2.0-3.0) mmol/L ABG Hemoglobin (11.7-17.4) g/dL ABG Carboxyhemoglobin (0.5-1.5) % POC ABG HHb (Measured) (0.0-5.0) % ABG Methemoglobin (0.0-3.0) % Seng Test A-a O2 Difference mm/Hg Respiratory Index Hgb O2 Saturation (95.0-98.0) % Mechanical Rate FiO2 % Tidal Volume PEEP Sodium 133 (132-148) mmol/L Potassium 3.2 L (3.6-5.2) mmol/L Chloride 100 (98-107) mmol/L Carbon Dioxide 28 (22-30) mmol/L Anion Gap 8 L (10-20) BUN 21 H (7-17) mg/dL Creatinine 0.8 (0.7-1.2) MG/DL Est GFR ( Amer) > 60 Est GFR (Non-Af Amer) > 60 POC Glucose (mg/dL) (65-110) mg/dL Random Glucose 60 L (65-105) mg/dL Calcium 7.4 L (8.6-10.4) mg/dl Phosphorus 2.3 L (2.5-4.5) mg/dL Magnesium 1.7 (1.6-2.3) mg/dL Total Bilirubin 0.5 (0.2-1.3) mg/dL AST 21 (14-36) U/L ALT 24 (9-52) U/L Alkaline Phosphatase 102 (38-126) U/L Total Protein 4.4 L (6.3-8.3) g/dL Albumin 1.9 L D (3.5-5.0) g/dL Globulin 2.5 (2.2-3.9) gm/dL Albumin/Globulin Ratio 0.8 L (1.0-2.1) Laboratory Results - last 24 hr 08/25/16 08/25/16 08/25/16 06:24 06:24 08:59 WBC 14.1 H RBC 2.58 L Hgb 9.3 L D Hct 28.2 L MCV 109.4 H MCH 36.1 H MCHC 33.0 RDW 15.7 H Plt Count 207 MPV 10.1 Neut % (Auto) 95.5 H Lymph % (Auto) 1.1 L [place] % (Auto) 3.1 Eos % (Auto) 0.1 Baso % (Auto) 0.2 Neut # 13.5 H Lymph # 0.2 L [place] # 0.4 Eos # 0.0 Baso # 0.0 Neutrophils % (Manual) 87 H Band Neutrophils % 7 H Lymphocytes % (Manual) 2 L Monocytes % (Manual) 4 Platelet Estimate Normal Hypochromasia (manual) Slight Poikilocytosis (manual Slight Anisocytosis (manual) Slight Macrocytosis (manual) Slight Target Cells Slight Puncture Site pCO2 pO2 HCO3 ABG pH ABG Total CO2 ABG O2 Saturation ABG Base Excess ABG Hemoglobin ABG Carboxyhemoglobin POC ABG HHb (Measured) ABG Methemoglobin Seng Test A-a O2 Difference Respiratory Index Hgb O2 Saturation Mechanical Rate FiO2 Tidal Volume PEEP Sodium 133 Potassium 3.2 L Chloride 100 Carbon Dioxide 28 Anion Gap 8 L BUN 21 H Creatinine 0.8 Est GFR ( Amer) > 60 Est GFR (Non-Af Amer) > 60 POC Glucose (mg/dL) 65 Random Glucose 60 L Calcium 7.4 L Phosphorus 2.3 L Magnesium 1.7 Total Bilirubin 0.5 AST 21 ALT 24 Alkaline Phosphatase 102 Total Protein 4.4 L Albumin 1.9 L D Globulin 2.5 Albumin/Globulin Ratio 0.8 L 08/25/16 08/25/16 08/26/16 11:37 17:59 05:07 WBC RBC Hgb Hct MCV MCH MCHC RDW Plt Count MPV Neut % (Auto) Lymph % (Auto) [place] % (Auto) Eos % (Auto) Baso % (Auto) Neut # Lymph # [place] # Eos # Baso # Neutrophils % (Manual) Band Neutrophils % Lymphocytes % (Manual) Monocytes % (Manual) Platelet Estimate Hypochromasia (manual) Poikilocytosis (manual Anisocytosis (manual) Macrocytosis (manual) Target Cells Puncture Site L rad pCO2 43 pO2 138 H HCO3 26.8 ABG pH 7.41 ABG Total CO2 28.6 H ABG O2 Saturation 99.7 H ABG Base Excess 2.4 ABG Hemoglobin 9.2 L ABG Carboxyhemoglobin 1.4 POC ABG HHb (Measured) 0.3 ABG Methemoglobin 0.9 Seng Test Pos A-a O2 Difference 450.0 Respiratory Index 3.3 Hgb O2 Saturation 97.5 Mechanical Rate 14 FiO2 90.0 Tidal Volume 450 PEEP 5 Sodium Potassium Chloride Carbon Dioxide Anion Gap BUN Creatinine Est GFR ( Amer) Est GFR (Non-Af Amer) POC Glucose (mg/dL) 71 85 Random Glucose Calcium Phosphorus Magnesium Total Bilirubin AST ALT Alkaline Phosphatase Total Protein Albumin Globulin Albumin/Globulin Ratio 08/26/16 08/26/16 06:12 06:12 WBC 10.2 RBC 2.55 L Hgb 9.3 L Hct 27.8 L MCV 108.9 H MCH 36.4 H MCHC 33.4 RDW 15.6 H Plt Count 224 MPV 9.5 Neut % (Auto) 93.6 H Lymph % (Auto) 2.0 L [place] % (Auto) 3.6 Eos % (Auto) 0.4 Baso % (Auto) 0.4 Neut # 9.5 H Lymph # 0.2 L [place] # 0.4 Eos # 0.0 Baso # 0.0 Neutrophils % (Manual) Band Neutrophils % Lymphocytes % (Manual) Monocytes % (Manual) Platelet Estimate Hypochromasia (manual) Poikilocytosis (manual Anisocytosis (manual) Macrocytosis (manual) Target Cells Puncture Site pCO2 pO2 HCO3 ABG pH ABG Total CO2 ABG O2 Saturation ABG Base Excess ABG Hemoglobin ABG Carboxyhemoglobin POC ABG HHb (Measured) ABG Methemoglobin Seng Test A-a O2 Difference Respiratory Index Hgb O2 Saturation Mechanical Rate FiO2 Tidal Volume PEEP Sodium 137 Potassium 3.6 Chloride 106 Carbon Dioxide 26 Anion Gap 8 L BUN 17 Creatinine 0.6 L Est GFR ( Amer) > 60 Est GFR (Non-Af Amer) > 60 POC Glucose (mg/dL) Random Glucose 103 Calcium 7.5 L Phosphorus 1.4 L Magnesium 1.9 Total Bilirubin 0.4 AST 21 ALT 29 Alkaline Phosphatase 126 D Total Protein 4.7 L Albumin 2.2 L Globulin 2.4 Albumin/Globulin Ratio 0.9 L Review of Systems - Review of Systems Systems not reviewed;Unavailable: Acuity of Condition Assessment/Plan - Assessment and Plan (Free Text) Assessment: 76 F PMHx HTN, A. fib, COPD (still smokes), anxiety, recurrent falls admitted for sepsis from UTI and bilateral hip fractures. Plan: Neuro: Responds to name. Alert and not on any sedation. Ativan 1mg ivp q[address] 08/15: negative Pulm: Respiratory failure likely secondary to recurrent aspiration pneumonia vs HAP vs ventilator acquired pna Intubated on vent (14, 450, 5, 80%) CXR 08/26: biapical pleural thickening with upper lobe granulomatous changes. Diffuse increased IS lung markings. Patchy consolidative changes in the mid to lower lung zones b/l with associated moderate b/l pleural effusions. Cardiomegaly. Chest pigtail catheter placed 08/19 for large R pleural effusion- removed 08/23 s/p thoracentesis of pleural effusion 08/19 WBC 12 RBC 219 Neutrophils 25 Lymphocytes 63 Monocytes 12 Fluid comment: few macrophages and mesothelials Total protein < 3 LDH 43 Glucose 106 Duoneb 3ml inh q6 f/u CTA chest f/u sputum culture f/u daily CXR and ABG Cardiovascular: tachycardic and SBP in high 90s this AM CHF exacerbation resolved as per cardio proBNP 83736 (08/10)--> 33917 (08/12)--> 7010 (08/26) Patient given albumin one time 08/26 Echo 08/14: LA, LV, RA, RV appear normal; moderate to severe L systolic dysfunction; mitral, TV, Aortic valve normal; mild MR, TR with calculated pulmonary systolic pressure of 54mm consistent with mod pulmonary HTN; IVC is WNL; minimal anterior echo free space probably fat s/p cardiorespiratory arrest 08/14/16 with successful resuscitation Cardiac cath 08/13: nonischemic cardiomyopathy with EF 15-20%; 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; great collaterals from L to R system; no coronary intervention Echo 08/09: EF 25-30%; LV systolic function severely imparied; global hypokinesia more pronounced in anterospetal area; Grade I abnl relaxation pattern on transmitral doppler flow; MR moderate to severe; mild pulm HTN Digoxin 0.25mg po daily Lisinopril 5mg po daily - not given Lopressor 25mg po bid - not given NS @ 50cc/hr f/u CTA chest Heme: no acute issues Renal: BUN/Cr 17/0.6 Patient has poor UO Endo: no acute issues GI: NGT feedings @ 35cc/hr tolerating with no residuals MSK: b/l hip fracture surgical intervention on hold at this time as patient is high risk Morphine 2mg ivp q4 prn pain ID: WBC 10.2 this AM f/u procalcitonin Tylenol for temp 650mg po q6 prn Primaxin 250mg ivpb q8 DVT proph: Heparin 5000u sc q8 GI proph: Protonix 40mg po daily Code status: full code Case discussed with Dr. Zak Waters PGY1 <Maurizio Crespo - Last Filed: 08/26/16 17:56> CCU Objective - Vital Signs / Intake & Output Vital Signs (Last 4 hours): Vital Signs Temp Pulse Resp BP Pulse Ox 08/26/16 17:17 134/66 08/26/16 17:15 114 H 17 134/66 100 08/26/16 17:00 108 H 24 100 08/26/16 16:59 106 H 16 136/67 100 08/26/16 16:46 121 H 8 L 131/74 100 08/26/16 16:15 100 H 13 132/71 100 08/26/16 16:00 99.1 F 107 H 15 100 08/26/16 15:46 98 H 12 143/67 100 08/26/16 15:15 98 H 14 145/64 100 08/26/16 15:00 108 H 13 100 08/26/16 14:45 96 H 147/72 100 08/26/16 14:16 120 H 11 L 132/75 100 08/26/16 14:05 115 H 17 141/67 100 08/26/16 14:00 111 H 15 100 Intake and Output (Last 8hrs): Intake & Output 08/26/16 08/26/16 08/26/16 06:59 14:59 22:59 Intake Total 730 745 415 Output Total 110 260 365 Balance 620 485 50 Weight 128 lb 4.944 oz Intake: Intake, IV Amount 450 350 250 Right PICC 450 350 250 Tube Feeding 280 245 105 Albumin 50 Other 100 60 Output: Urine 110 260 365 Urethral (Martinez) 110 260 365 Other: # Bowel Movements 0 1 - Medications Active Medications: Active Medications Generic Name Dose Route Start Last Admin Trade Name Freq PRN Reason Stop Dose Admin Acetaminophen 650 mg 08/14/16 23:50 08/25/16 00:45 Tylenol 650mg/20.3ml Solution Ud PO 650 mg Q6H PRN Administration temp.100.4&above;mild pain 1-3 Albuterol/Ipratropium 3 ml 08/16/16 14:00 08/26/16 13:27 Duoneb 3 Mg/0.5 Mg (3 Ml) Ud INH 3 ml RQ6 [place] Administration Digoxin 0.25 mg 08/11/16 18:00 08/26/16 17:18 Lanoxin PO 0.25 mg DAILY@1800 [place] Administration Heparin Sodium (Porcine) 5,000 units 08/25/16 08:30 08/26/16 14:29 Heparin SC 5,000 units Q8 [place] Administration Imipenem/Cilastatin Sodium 250 100 mls @ 100 mls/hr 08/25/16 08:15 08/26/16 14:20 mg/ Sodium Chloride IVPB 100 mls/hr Q8 [place] Administration Lisinopril 5 mg 08/17/16 10:00 08/26/16 14:12 Zestril PO 5 mg DAILY [place] Administration Lorazepam 1 mg 08/24/16 13:13 08/26/16 14:45 Ativan IVP 1 mg Q4 PRN Administration Anxiety Metoprolol Tartrate 25 mg 08/12/16 18:00 08/26/16 17:17 Lopressor PO 25 mg BID [place] Administration Morphine Sulfate 2 mg 08/22/16 03:45 08/26/16 17:11 Morphine IVP 2 mg Q4 PRN Administration Pain, severe (8-10) Pantoprazole Sodium 40 mg 08/27/16 06:00 Protonix Susp PO 0600 [place] Potassium Phos/Sodium Phos 1 pkt 08/26/16 10:00 08/26/16 17:19 Neutra-Phos PO 08/27/16 00:00 1 pkt TID [place] Administration - Patient Studies Lab Studies: Microbiology Studies 08/25/16 08:09 Gram Stain - Final Trachasp Lab Studies 08/26/16 08/26/16 08/26/16 Range/Units 09:41 09:41 06:12 WBC (4.8-10.8) K/uL RBC (3.80-5.20) Mil/uL Hgb (11.0-16.0) g/dL Hct (34.0-47.0) % MCV (81.0-99.0) fL MCH (27.0-31.0) pg MCHC (33.0-37.0) g/dL RDW (11.5-14.5) % Plt Count (130-400) K/uL MPV (7.2-11.7) fL Neut % (Auto) (50.0-75.0) % Lymph % (Auto) (20.0-40.0) % [place] % (Auto) (0.0-10.0) % Eos % (Auto) (0.0-4.0) % Baso % (Auto) (0.0-2.0) % Neut # (1.8-7.0) K/uL Lymph # (1.0-4.3) K/uL [place] # (0.0-0.8) K/uL Eos # (0.0-0.7) K/uL Baso # (0.0-0.2) K/uL Neutrophils % (Manual) (50-75) % Lymphocytes % (Manual) (20-40) % Monocytes % (Manual) (0-10) % Platelet Estimate (NORMAL) Hypochromasia (manual) Poikilocytosis (manual Anisocytosis (manual) Macrocytosis (manual) Puncture Site pCO2 (35-45) mm/Hg pO2 (80-100) mm/Hg HCO3 (21-28) mmol/L ABG pH (7.35-7.45) ABG Total CO2 (22-28) mmol/L ABG O2 Saturation (95-98) % ABG Base Excess (-2.0-3.0) mmol/L ABG Hemoglobin (11.7-17.4) g/dL ABG Carboxyhemoglobin (0.5-1.5) % POC ABG HHb (Measured) (0.0-5.0) % ABG Methemoglobin (0.0-3.0) % Seng Test A-a O2 Difference mm/Hg Respiratory Index Hgb O2 Saturation (95.0-98.0) % Mechanical Rate FiO2 % Tidal Volume PEEP Sodium 137 (132-148) mmol/L Potassium 3.6 (3.6-5.2) mmol/L Chloride 106 (98-107) mmol/L Carbon Dioxide 26 (22-30) mmol/L Anion Gap 8 L (10-20) BUN 17 (7-17) mg/dL Creatinine 0.6 L (0.7-1.2) MG/DL Est GFR ( Amer) > 60 Est GFR (Non-Af Amer) > 60 POC Glucose (mg/dL) (65-110) mg/dL Random Glucose 103 (65-105) mg/dL Calcium 7.5 L (8.6-10.4) mg/dl Phosphorus 1.4 L (2.5-4.5) mg/dL Magnesium 1.9 (1.6-2.3) mg/dL Total Bilirubin 0.4 (0.2-1.3) mg/dL AST 21 (14-36) U/L ALT 29 (9-52) U/L Alkaline Phosphatase 126 D (38-126) U/L NT-Pro-B Natriuret Pep 7010 H (0-900) pg/mL Total Protein 4.7 L (6.3-8.3) g/dL Albumin 2.2 L (3.5-5.0) g/dL Globulin 2.4 (2.2-3.9) gm/dL Albumin/Globulin Ratio 0.9 L (1.0-2.1) Procalcitonin 2.31 H (0.19-0.49) NG/ML 08/26/16 08/26/16 08/25/16 Range/Units 06:12 05:07 17:59 WBC 10.2 (4.8-10.8) K/uL RBC 2.55 L (3.80-5.20) Mil/uL Hgb 9.3 L (11.0-16.0) g/dL Hct 27.8 L (34.0-47.0) % MCV 108.9 H (81.0-99.0) fL MCH 36.4 H (27.0-31.0) pg MCHC 33.4 (33.0-37.0) g/dL RDW 15.6 H (11.5-14.5) % Plt Count 224 (130-400) K/uL MPV 9.5 (7.2-11.7) fL Neut % (Auto) 93.6 H (50.0-75.0) % Lymph % (Auto) 2.0 L (20.0-40.0) % [place] % (Auto) 3.6 (0.0-10.0) % Eos % (Auto) 0.4 (0.0-4.0) % Baso % (Auto) 0.4 (0.0-2.0) % Neut # 9.5 H (1.8-7.0) K/uL Lymph # 0.2 L (1.0-4.3) K/uL [place] # 0.4 (0.0-0.8) K/uL Eos # 0.0 (0.0-0.7) K/uL Baso # 0.0 (0.0-0.2) K/uL Neutrophils % (Manual) 93 H (50-75) % Lymphocytes % (Manual) 4 L (20-40) % Monocytes % (Manual) 3 (0-10) % Platelet Estimate Normal (NORMAL) Hypochromasia (manual) Slight Poikilocytosis (manual Slight Anisocytosis (manual) Slight Macrocytosis (manual) Slight Puncture Site L rad pCO2 43 (35-45) mm/Hg pO2 138 H (80-100) mm/Hg HCO3 26.8 (21-28) mmol/L ABG pH 7.41 (7.35-7.45) ABG Total CO2 28.6 H (22-28) mmol/L ABG O2 Saturation 99.7 H (95-98) % ABG Base Excess 2.4 (-2.0-3.0) mmol/L ABG Hemoglobin 9.2 L (11.7-17.4) g/dL ABG Carboxyhemoglobin 1.4 (0.5-1.5) % POC ABG HHb (Measured) 0.3 (0.0-5.0) % ABG Methemoglobin 0.9 (0.0-3.0) % Seng Test Pos A-a O2 Difference 450.0 mm/Hg Respiratory Index 3.3 Hgb O2 Saturation 97.5 (95.0-98.0) % Mechanical Rate 14 FiO2 90.0 % Tidal Volume 450 PEEP 5 Sodium (132-148) mmol/L Potassium (3.6-5.2) mmol/L Chloride (98-107) mmol/L Carbon Dioxide (22-30) mmol/L Anion Gap (10-20) BUN (7-17) mg/dL Creatinine (0.7-1.2) MG/DL Est GFR ( Amer) Est GFR (Non-Af Amer) POC Glucose (mg/dL) 85 (65-110) mg/dL Random Glucose (65-105) mg/dL Calcium (8.6-10.4) mg/dl Phosphorus (2.5-4.5) mg/dL Magnesium (1.6-2.3) mg/dL Total Bilirubin (0.2-1.3) mg/dL AST (14-36) U/L ALT (9-52) U/L Alkaline Phosphatase (38-126) U/L NT-Pro-B Natriuret Pep (0-900) pg/mL Total Protein (6.3-8.3) g/dL Albumin (3.5-5.0) g/dL Globulin (2.2-3.9) gm/dL Albumin/Globulin Ratio (1.0-2.1) Procalcitonin (0.19-0.49) NG/ML Laboratory Results - last 24 hr 08/25/16 08/26/16 08/26/16 17:59 05:07 06:12 WBC 10.2 RBC 2.55 L Hgb 9.3 L Hct 27.8 L MCV 108.9 H MCH 36.4 H MCHC 33.4 RDW 15.6 H Plt Count 224 MPV 9.5 Neut % (Auto) 93.6 H Lymph % (Auto) 2.0 L [place] % (Auto) 3.6 Eos % (Auto) 0.4 Baso % (Auto) 0.4 Neut # 9.5 H Lymph # 0.2 L [place] # 0.4 Eos # 0.0 Baso # 0.0 Neutrophils % (Manual) 93 H Lymphocytes % (Manual) 4 L Monocytes % (Manual) 3 Platelet Estimate Normal Hypochromasia (manual) Slight Poikilocytosis (manual Slight Anisocytosis (manual) Slight Macrocytosis (manual) Slight Puncture Site L rad pCO2 43 pO2 138 H HCO3 26.8 ABG pH 7.41 ABG Total CO2 28.6 H ABG O2 Saturation 99.7 H ABG Base Excess 2.4 ABG Hemoglobin 9.2 L ABG Carboxyhemoglobin 1.4 POC ABG HHb (Measured) 0.3 ABG Methemoglobin 0.9 Seng Test Pos A-a O2 Difference 450.0 Respiratory Index 3.3 Hgb O2 Saturation 97.5 Mechanical Rate 14 FiO2 90.0 Tidal Volume 450 PEEP 5 Sodium Potassium Chloride Carbon Dioxide Anion Gap BUN Creatinine Est GFR ( Amer) Est GFR (Non-Af Amer) POC Glucose (mg/dL) 85 Random Glucose Calcium Phosphorus Magnesium Total Bilirubin AST ALT Alkaline Phosphatase NT-Pro-B Natriuret Pep Total Protein Albumin Globulin Albumin/Globulin Ratio Procalcitonin 08/26/16 08/26/16 08/26/16 06:12 09:41 09:41 WBC RBC Hgb Hct MCV MCH MCHC RDW Plt Count MPV Neut % (Auto) Lymph % (Auto) [place] % (Auto) Eos % (Auto) Baso % (Auto) Neut # Lymph # [place] # Eos # Baso # Neutrophils % (Manual) Lymphocytes % (Manual) Monocytes % (Manual) Platelet Estimate Hypochromasia (manual) Poikilocytosis (manual Anisocytosis (manual) Macrocytosis (manual) Puncture Site pCO2 pO2 HCO3 ABG pH ABG Total CO2 ABG O2 Saturation ABG Base Excess ABG Hemoglobin ABG Carboxyhemoglobin POC ABG HHb (Measured) ABG Methemoglobin Seng Test A-a O2 Difference Respiratory Index Hgb O2 Saturation Mechanical Rate FiO2 Tidal Volume PEEP Sodium 137 Potassium 3.6 Chloride 106 Carbon Dioxide 26 Anion Gap 8 L BUN 17 Creatinine 0.6 L Est GFR ( Amer) > 60 Est GFR (Non-Af Amer) > 60 POC Glucose (mg/dL) Random Glucose 103 Calcium 7.5 L Phosphorus 1.4 L Magnesium 1.9 Total Bilirubin 0.4 AST 21 ALT 29 Alkaline Phosphatase 126 D NT-Pro-B Natriuret Pep 7010 H Total Protein 4.7 L Albumin 2.2 L Globulin 2.4 Albumin/Globulin Ratio 0.9 L Procalcitonin 2.31 H Assessment/Plan (1) Acute respiratory failure Current Visit: Yes Status: Acute Comment: Status post extubation yesterday and comfortable in no respiratory distress Continue diuretics and antibiotics Start feeding (2) CHF exacerbation Current Visit: Yes Status: Resolved (3) Closed fracture of greater trochanter of left femur Current Visit: Yes Status: Acute (4) Garden grade IV closed subcapital fracture of proximal end of right femur Current Visit: Yes Status: Acute Attending/Attestation - Attestation I have personally seen and examined this patient.: Yes I have fully participated in the care of the patient.: Yes I have reviewed all pertinent clinical information: Yes Notes (Text): 08/26/16 17:54 Patient seen and examined in the intensive care unit. Case discussed with house staff in the morning rounds. Patient remains intubated on ventilatory support requiring high FiO2 Elevated calcitonin level consistent with pneumonia Continue antibiotics IV albumin and Lasix Continue feeding
--- NOTE | 2016-08-26 08:20 | RAD ---
Chest x-ray single frontal view History: Intubated. Comparison: 08/25/2016 Findings: Endotracheal tube extending into the mid thoracic trachea. NG tube extending into the stomach. Biapical pleural thickening with upper lobe granulomatous changes. Diffuse increased interstitial lung markings. Patchy consolidative changes in the mid to lower lung zones bilaterally with associated moderate bilateral pleural effusions. Cardiomegaly. Degenerative changes in the spine and shoulders. Impression: Endotracheal tube extending into the mid thoracic trachea. NG tube extending into the stomach. Biapical pleural thickening with upper lobe granulomatous changes. Diffuse increased interstitial lung markings. Patchy consolidative changes in the mid to lower lung zones bilaterally with associated moderate bilateral pleural effusions. Cardiomegaly.
[2016-08-26 08:25] LABS: ANISOCYTOSIS SLIGHT; HYPOCHROMIC SLIGHT; LYMPHOCYTE 4 % (20-40); MONOCYTE 3 % (0-10); NEUTROPHIL 93 % (50-75); PLATELET ESTIMATE NORMAL (NORMAL); POIKILOCYTOSIS SLIGHT; TOTAL CELLS COUNTED 100
[2016-08-26] MEDS ORDERED: Albumin Human 25% (12.5 gm/50 ml) IV ONE (09:30)
[2016-08-26] MEDS: Potassium & Sodium Phosphate PO SCH ×3 (10:05→17:19)
--- NOTE | 2016-08-26 11:50 | CP.PCM.PN ---
Subjective - Date & Time of Evaluation Date of Evaluation: 08/26/16 Time of Evaluation: 11:45 - Subjective Subjective: Progress note for Dr. Peacock Pt seen and examined at bedside. Pt remains intubated at this time. Pt continues to have increased secretions in her airway. No acute overnight events as per nursing. Objective - Vital Signs/Intake and Output Vital Signs (last 24 hours): Temp Pulse Resp BP Pulse Ox 98.4 F 102 H 14 99/54 L 100 08/26/16 08:00 08/26/16 11:15 08/26/16 11:15 08/26/16 11:24 08/26/16 11:15 Intake and Output: 08/26/16 08/26/16 06:59 18:59 Intake Total 1245 405 Output Total 265 75 Balance 980 330 - Medications Medications: Current Medications Acetaminophen (Tylenol 650mg/20.3ml Solution Ud) 650 mg PO Q6H PRN PRN Reason: temp.100.4&above;mild pain 1-3 Last Admin: 08/25/16 00:45 Dose: 650 mg Albuterol/Ipratropium (Duoneb 3 Mg/0.5 Mg (3 Ml) Ud) 3 ml INH RQ6 [facility] Last Admin: 08/26/16 08:36 Dose: 3 ml Digoxin (Lanoxin) 0.25 mg PO DAILY@1800 [facility] Last Admin: 08/25/16 17:13 Dose: 0.25 mg Heparin Sodium (Porcine) (Heparin) 5,000 units SC Q8 [facility] Last Admin: 08/26/16 05:24 Dose: 5,000 units Imipenem/Cilastatin Sodium 250 (mg/ Sodium Chloride) 100 mls @ 100 mls/hr IVPB Q8 [facility] Last Admin: 08/26/16 05:23 Dose: 100 mls/hr Sodium Chloride (Sodium Chloride 0.9%) 1,000 mls @ 50 mls/hr IV .Q20H [facility] Last Admin: 08/26/16 06:24 Dose: 50 mls/hr Lisinopril (Zestril) 5 mg PO DAILY [facility] Last Admin: 08/26/16 11:24 Dose: Not Given Lorazepam (Ativan) 1 mg IVP Q4 PRN PRN Reason: Anxiety Last Admin: 08/25/16 22:19 Dose: 1 mg Metoprolol Tartrate (Lopressor) 25 mg PO BID [facility] Last Admin: 08/26/16 11:24 Dose: Not Given Morphine Sulfate (Morphine) 2 mg IVP Q4 PRN PRN Reason: Pain, severe (8-10) Last Admin: 08/26/16 08:32 Dose: 2 mg Pantoprazole Sodium (Protonix Susp) 40 mg PO 0600 [facility] Potassium Phos/Sodium Phos (Neutra-Phos) 1 pkt PO TID [facility] Stop: 08/27/16 00:00 Last Admin: 08/26/16 10:05 Dose: 1 pkt - Labs Labs: 08/26/16 06:12 08/26/16 06:12 PT 10.6 SECONDS (9.7-12.2) 08/21/16 06:11 INR 1.0 08/21/16 06:11 APTT 29 SECONDS (21-34) 08/21/16 06:11 - Constitutional Appears: Toxic - Head Exam Head Exam: ATRAUMATIC, NORMAL INSPECTION, NORMOCEPHALIC - Respiratory Exam Respiratory Exam: Decreased Breath Sounds. absent: Rhonchi - Cardiovascular Exam Cardiovascular Exam: RRR, +S1, +S2 - GI/Abdominal Exam GI & Abdominal Exam: Soft, Normal Bowel Sounds. absent: Tenderness - Neurological Exam Additional comments: Intubated - Skin Skin Exam: Intact, Normal Color Assessment and Plan (1) CHF exacerbation Assessment & Plan: Pt high risk for surgery with very poor prognosis as pt remains intubated with increased respiratory secretions Continue to monitor closely and medically optimize patient Continue current medical regimen Status: Resolved
--- NOTE | 2016-08-26 15:26 | CP.PCM.CON ---
History of Present Illness - History of Present Illness History of Present Illness: Palliative consult Requested by Zak KOHLER Reason: Goals of care discussion Patient is a 76 yo fermale admitted from home where she was found on the floor by EMS. Patient is S/P fall, face down. Is not known for long patient was on the floor. As per her , patient had multiple episodes in the past when she would feel weak and lower herself to the floor until she felt stronger. stated he would let her stay there as he was not able to pick her up. U[on admission the CT head, orbit CT and pelvis CT all were negative for Fx. patient had some pain post fall and Tylenol and Morphine kept her comfortable. Patient was found to have yeast in urine infection and treated with Primaxin IV. On 08/15/[address] chest was significant for moderate B/L pleural effusion and was treated accordingly. On 08/24/16 patient sustained respiratory distress and was intubated for support. PMH: Bronchitis, arthritis Soc. 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 hx: has daughter who is diabled and is in custodial, son at the institution, also had some psych issues, is demented and neighborhood takes care of him at present, has one half sister who lives in [place] and who is the only relative able to discuss goals of care for this patient Review of Systems - Review of Systems Systems not reviewed;Unavailable: Intubated Review of Systems: patient intubated unablr to provide ROS. Does not respond to stimuli, pupils reactive to light , muscle flaccid, there is spontaneous movements. All other systems reviewed and are negative. Past Patient History - Infectious Disease Hx of Infectious Diseases: None - Tetanus Immunizations Tetanus Immunization: Unknown - Past Medical History & Family History Past Medical History?: Yes Past Family History: Reviewed and not pertinent - Past Social History Smoking Status: Heavy Smoker > 10 Cigarettes Daily Alcohol: None Drugs: Denies Home Situation {Lives}: With Family Domestic Violence: Negative - CARDIAC Hx Congestive Heart Failure: Yes Hx Hypertension: Yes - PULMONARY Hx Bronchitis: Yes Hx Emphysema: Yes - NEUROLOGICAL Hx Neurological Disorder: No - HEENT Hx HEENT Problems: Yes Hx Cataracts: Yes - RENAL Hx Chronic Kidney Disease: No - ENDOCRINE/METABOLIC Hx Endocrine Disorders: No - HEMATOLOGICAL/ONCOLOGICAL Hx Blood Disorders: No - INTEGUMENTARY Hx Dermatological Problems: No - MUSCULOSKELETAL/RHEUMATOLOGICAL Hx Arthritis: Yes - GASTROINTESTINAL Hx Gastrointestinal Disorders: No - GENITOURINARY/GYNECOLOGICAL Hx Genitourinary Disorders: No - PSYCHIATRIC Hx Anxiety: Yes Hx Substance Use: No - SURGICAL HISTORY Hx Appendectomy: Yes Hx Eye Surgery: Yes - ANESTHESIA Hx Anesthesia: Yes Hx Anesthesia Reactions: Yes ("cough") Hx Malignant Hyperthermia: No Has any member of the family had a problem w/ anesthesia?: No Meds Allergies/Adverse Reactions: Allergies Allergy/AdvReac Type Severity Reaction Status Date / Time EGG Allergy DIZZINESS Verified 08/07/16 13:37 - Medications Medications: Current Medications Acetaminophen (Tylenol 650mg/20.3ml Solution Ud) 650 mg PO Q6H PRN PRN Reason: temp.100.4&above;mild pain 1-3 Last Admin: 08/25/16 00:45 Dose: 650 mg Albuterol/Ipratropium (Duoneb 3 Mg/0.5 Mg (3 Ml) Ud) 3 ml INH RQ6 [facility] Last Admin: 08/26/16 13:27 Dose: 3 ml Digoxin (Lanoxin) 0.25 mg PO DAILY@1800 [facility] Last Admin: 08/25/16 17:13 Dose: 0.25 mg Heparin Sodium (Porcine) (Heparin) 5,000 units SC Q8 [facility] Last Admin: 08/26/16 14:29 Dose: 5,000 units Imipenem/Cilastatin Sodium 250 (mg/ Sodium Chloride) 100 mls @ 100 mls/hr IVPB Q8 [facility] Last Admin: 08/26/16 14:20 Dose: 100 mls/hr Sodium Chloride (Sodium Chloride 0.9%) 1,000 mls @ 50 mls/hr IV .Q20H [facility] Last Admin: 08/26/16 06:24 Dose: 50 mls/hr Lisinopril (Zestril) 5 mg PO DAILY [facility] Last Admin: 08/26/16 14:12 Dose: 5 mg Lorazepam (Ativan) 1 mg IVP Q4 PRN PRN Reason: Anxiety Last Admin: 08/26/16 14:45 Dose: 1 mg Metoprolol Tartrate (Lopressor) 25 mg PO BID [facility] Last Admin: 08/26/16 11:24 Dose: Not Given Morphine Sulfate (Morphine) 2 mg IVP Q4 PRN PRN Reason: Pain, severe (8-10) Last Admin: 08/26/16 08:32 Dose: 2 mg Pantoprazole Sodium (Protonix Susp) 40 mg PO 0600 [place] Potassium Phos/Sodium Phos (Neutra-Phos) 1 pkt PO TID [place] Stop: 08/27/16 00:00 Last Admin: 08/26/16 14:18 Dose: 1 pkt Physical Exam - Constitutional Appears: In Acute Distress - Head Exam Head Exam: ATRAUMATIC, NORMAL INSPECTION, NORMOCEPHALIC - Eye Exam Eye Exam: Normal appearance, PERRL Pupil Exam: PERRL Additional comments: Sluggish reaction to light - ENT Exam Additional comments: ETT and EGT - Neck Exam Neck exam: Positive for: Normal Inspection - Respiratory Exam Respiratory Exam: Decreased Breath Sounds Additional comments: On MV support - Cardiovascular Exam Cardiovascular Exam: Tachycardia - GI/Abdominal Exam GI & Abdominal Exam: Hypoactive Bowel Sounds - Rectal Exam Rectal Exam: Deferred - Exam Additional comments: Martinez cath - Extremities Exam Extremities exam: Positive for: normal inspection Additional comments: mild edema - Back Exam Back exam: NORMAL INSPECTION - Neurological Exam Neurological exam: Motor Sensory Deficit - Psychiatric Exam Psychiatric exam: Flat Affect - Skin Skin Exam: Pallor Results - Vital Signs Recent Vital Signs: Last Vital Signs Temp 98.8 F 08/26/16 12:00 Pulse 120 H 08/26/16 14:16 Resp 11 L 08/26/16 14:16 BP 132/75 08/26/16 14:16 Pulse Ox 100 08/26/16 14:16 - Labs Result Diagrams: 08/26/16 06:12 08/26/16 06:12 Labs: Laboratory Results - last 24 hr 08/25/16 08/26/16 08/26/16 17:59 05:07 06:12 WBC 10.2 RBC 2.55 L Hgb 9.3 L Hct 27.8 L MCV 108.9 H MCH 36.4 H MCHC 33.4 RDW 15.6 H Plt Count 224 MPV 9.5 Neut % (Auto) 93.6 H Lymph % (Auto) 2.0 L [place] % (Auto) 3.6 Eos % (Auto) 0.4 Baso % (Auto) 0.4 Neut # 9.5 H Lymph # 0.2 L [place] # 0.4 Eos # 0.0 Baso # 0.0 Neutrophils % (Manual) 93 H Lymphocytes % (Manual) 4 L Monocytes % (Manual) 3 Platelet Estimate Normal Hypochromasia (manual) Slight Poikilocytosis (manual Slight Anisocytosis (manual) Slight Macrocytosis (manual) Slight Puncture Site L rad pCO2 43 pO2 138 H HCO3 26.8 ABG pH 7.41 ABG Total CO2 28.6 H ABG O2 Saturation 99.7 H ABG Base Excess 2.4 ABG Hemoglobin 9.2 L ABG Carboxyhemoglobin 1.4 POC ABG HHb (Measured) 0.3 ABG Methemoglobin 0.9 Seng Test Pos A-a O2 Difference 450.0 Respiratory Index 3.3 Hgb O2 Saturation 97.5 Mechanical Rate 14 FiO2 90.0 Tidal Volume 450 PEEP 5 Sodium Potassium Chloride Carbon Dioxide Anion Gap BUN Creatinine Est GFR ( Amer) Est GFR (Non-Af Amer) POC Glucose (mg/dL) 85 Random Glucose Calcium Phosphorus Magnesium Total Bilirubin AST ALT Alkaline Phosphatase NT-Pro-B Natriuret Pep Total Protein Albumin Globulin Albumin/Globulin Ratio Procalcitonin 08/26/16 08/26/16 08/26/16 06:12 09:41 09:41 WBC RBC Hgb Hct MCV MCH MCHC RDW Plt Count MPV Neut % (Auto) Lymph % (Auto) [place] % (Auto) Eos % (Auto) Baso % (Auto) Neut # Lymph # [place] # Eos # Baso # Neutrophils % (Manual) Lymphocytes % (Manual) Monocytes % (Manual) Platelet Estimate Hypochromasia (manual) Poikilocytosis (manual Anisocytosis (manual) Macrocytosis (manual) Puncture Site pCO2 pO2 HCO3 ABG pH ABG Total CO2 ABG O2 Saturation ABG Base Excess ABG Hemoglobin ABG Carboxyhemoglobin POC ABG HHb (Measured) ABG Methemoglobin Seng Test A-a O2 Difference Respiratory Index Hgb O2 Saturation Mechanical Rate FiO2 Tidal Volume PEEP Sodium 137 Potassium 3.6 Chloride 106 Carbon Dioxide 26 Anion Gap 8 L BUN 17 Creatinine 0.6 L Est GFR ( Amer) > 60 Est GFR (Non-Af Amer) > 60 POC Glucose (mg/dL) Random Glucose 103 Calcium 7.5 L Phosphorus 1.4 L Magnesium 1.9 Total Bilirubin 0.4 AST 21 ALT 29 Alkaline Phosphatase 126 D NT-Pro-B Natriuret Pep 7010 H Total Protein 4.7 L Albumin 2.2 L Globulin 2.4 Albumin/Globulin Ratio 0.9 L Procalcitonin 2.31 H Assessment & Plan - Assessment and Plan (Free Text) Assessment: Palliative consult Code status Full Code, there is no advance directive on chart. PPS 0%. ROS obtained from nursing. I reviewed charts, all diagnostic studies , examined patient in the bed and had a 30 min long discussion with patient's half sister Eduarda Amin over the phone. Goals of care discussed. Patient is on MV support, responds minimally to stimuli by opening her eyes. Pupils very sluggish in responding to light. Muscles flaccid. BP 11/47, HR 94, O2sat 100% .Patient appears comfortable, still getting Morphine for pain. Patient's wishes about end of life care are not known, but it is documented that on 08/11/16 her wishes were discussed with Doctor Zak, when she stated if meaningful recovery was not expected and she would not be able to return home and take care of her , she would not want her life to be artificialy prolonged bybthe life support. In phone conversation with Mrs. Carlton Amin ( [phone]) patient's half sister, I reviewed patient;s clinical presentation. She was sad to hear about latest developments and admitted she has not seen the patient for quite while. I mentioned to Mrs. Carlton Amin patient's wishes about the end of life care. She stated understanding as patient was so used to taking care of her for long time. We agreed to meet on Thursday when Mrs. Carlton Amin was planing on coming from [place] and further discuss goals of care. Impression * This is acutely ill patient , diagnosed with new onset of Pneumonia , on MV support * Patient has only one half sister able to discuss goals of care. is with dementia ans unable to take a role in discussion * Soon after admission, patient stated her wishes for end of life care, asking for natural if meaningful recovery was not expected. Suggestion * Continue all measures to support life * Pending family meeting for Thursday, when Mrs. Carlton Amin was expected to arrive from [place] Thank you for consulting [facility]
[2016-08-26] MEDS: Pantoprazole 40 mg EC Tab PO SCH (16:54)
[2016-08-26] MEDS: Digoxin 250 mcg (0.25 mg) Tab PO SCH (17:18)
[2016-08-27] MEDS: Albuterol-Ipratrop 3 mg / 0.5 (3 ml) UD INH SCH ×4 (01:05→19:44)
[2016-08-27] MEDS: Imipenem/Cilastatin 250 MG in Sodium Chloride 100 ML IVPB SCH ×3 (05:23→22:04)
--- NOTE | 2016-08-27 05:40 | CP.CCUPN ---
<Candido Alvarez - Last Filed: 08/27/16 10:27> CCU Subjective - Physician Review Subjective (Free Text): 08/27/16 05:38 PGY-[address] Crespo Pt seen and examined at bedside. Nursing reports no acute events overnight. Afebrile but tachycardic overnight. Patient on CPAP trial (10, 500, 5, 50%) on no sedation. Patient is arousable and opens eyes to name. Tolerating feeds @ 35cc/hr with no residual. Pt with continued secretions from ET tube. Pt UO improved overnight. ROs unobtainable due to pt condition. Critical Care Time Spent (in minutes): 25 CCU Objective - Vital Signs / Intake & Output Vital Signs (Last 4 hours): Vital Signs Pulse Resp BP Pulse Ox 08/27/16 05:16 71 15 133/65 100 08/27/16 05:00 60 15 100 08/27/16 04:47 127 H 13 120/70 100 08/27/16 04:17 120 H 15 142/79 100 08/27/16 04:00 121 H 14 100 08/27/16 03:45 105 H 14 117/65 100 08/27/16 03:16 112 H 13 130/57 L 100 08/27/16 03:00 103 H 14 100 08/27/16 02:45 98 H 14 123/67 100 08/27/16 02:15 99 H 14 114/58 L 100 08/27/16 02:00 96 H 14 100 08/27/16 01:45 101 H 14 122/62 100 Intake and Output (Last 8hrs): Intake & Output 08/26/16 08/26/16 08/27/16 14:59 22:59 06:59 Intake Total 745 790 345 Output Total 260 645 350 Balance 485 145 -5 Intake: Intake, IV Amount 350 350 100 Right PICC 350 350 100 Tube Feeding 245 280 245 Albumin 50 Other 100 160 Output: Urine 260 645 350 Urethral (Martinez) 260 645 350 Other: # Bowel Movements 0 0 - Physical Exam Head: Positive for: Normocephalic, Ecchymosis, Other (Contusions over left side of face healing). Negative for: Atraumatic Pupils: Positive for: PERRL Extroacular Muscles: Positive for: Other (opens eyes to name) Conjunctiva: Positive for: Normal Mouth: Positive for: Dry, Other (ET tube in place- secretions noted) Neck: Negative for: JVD, Bruit Respiratory/Chest: Positive for: Good Air Exchange, Decreased Breath Sounds ( bibasilar R > L), Rales (bibasilar ), Other (intubated on vent). Negative for: Clear to Auscultation, Respiratory Distress, Accessory Muscle Use, Wheezes, Retracting, Rhonchi Cardiovascular: Positive for: Normal S1, S2, Peripheal Pulses Present, Tachycardic. Negative for: Murmurs, Irregular Rhythm Abdomen: Positive for: Normal Bowel Sounds. Negative for: Tenderness, Distention, Peritoneal Signs, Rebound, Guarding Upper Extremity: Positive for: Normal Inspection, NORMAL PULSES. Negative for: Edema Lower Extremity: Positive for: NORMAL PULSES, Deformity (right leg shortened and externally rotated ), Other (grimaces when b/l hips palpated; offloading boots secure). Negative for: Normal Inspection, Edema, Normal ROM Neurological: Positive for: Other (responds to name and grimaces) Skin: Positive for: Warm, Dry, Normal Color, Other (b/l ecchymosis on face noted ). Negative for: Rashes Psychiatric: Positive for: Alert (responds to name ) - Medications Active Medications: Active Medications Generic Name Dose Route Start Last Admin Trade Name Manprete PRN Reason Stop Dose Admin Acetaminophen 650 mg 08/14/16 23:50 08/25/16 00:45 Tylenol 650mg/20.3ml Solution Ud PO 650 mg Q6H PRN Administration temp.100.4&above;mild pain 1-3 Albuterol/Ipratropium 3 ml 08/16/16 14:00 08/27/16 01:05 Duoneb 3 Mg/0.5 Mg (3 Ml) Ud INH 3 ml RQ6 [place] Administration Digoxin 0.25 mg 08/11/16 18:00 08/26/16 17:18 Lanoxin PO 0.25 mg DAILY@1800 [place] Administration Heparin Sodium (Porcine) 5,000 units 08/25/16 08:30 08/27/16 05:23 Heparin SC 5,000 units Q8 [place] Administration Imipenem/Cilastatin Sodium 250 100 mls @ 100 mls/hr 08/25/16 08:15 08/27/16 05:23 mg/ Sodium Chloride IVPB 100 mls/hr Q8 [place] Administration Lisinopril 5 mg 08/17/16 10:00 08/26/16 14:12 Zestril PO 5 mg DAILY [place] Administration Lorazepam 1 mg 08/24/16 13:13 08/26/16 14:45 Ativan IVP 1 mg Q4 PRN Administration Anxiety Metoprolol Tartrate 25 mg 08/12/16 18:00 08/26/16 17:17 Lopressor PO 25 mg BID [place] Administration Morphine Sulfate 2 mg 08/22/16 03:45 08/26/16 17:11 Morphine IVP 2 mg Q4 PRN Administration Pain, severe (8-10) Pantoprazole Sodium 40 mg 08/27/16 06:00 Protonix Susp PO 0600 [facility] - Patient Studies Lab Studies: Microbiology Studies 08/25/16 08:09 Gram Stain - Final Trachasp Lab Studies 08/26/16 08/26/16 08/26/16 Range/Units 09:41 09:41 06:12 WBC (4.8-10.8) K/uL RBC (3.80-5.20) Mil/uL Hgb (11.0-16.0) g/dL Hct (34.0-47.0) % MCV (81.0-99.0) fL MCH (27.0-31.0) pg MCHC (33.0-37.0) g/dL RDW (11.5-14.5) % Plt Count (130-400) K/uL MPV (7.2-11.7) fL Neut % (Auto) (50.0-75.0) % Lymph % (Auto) (20.0-40.0) % Estill % (Auto) (0.0-10.0) % Eos % (Auto) (0.0-4.0) % Baso % (Auto) (0.0-2.0) % Neut # (1.8-7.0) K/uL Lymph # (1.0-4.3) K/uL Estill # (0.0-0.8) K/uL Eos # (0.0-0.7) K/uL Baso # (0.0-0.2) K/uL Neutrophils % (Manual) (50-75) % Lymphocytes % (Manual) (20-40) % Monocytes % (Manual) (0-10) % Platelet Estimate (NORMAL) Hypochromasia (manual) Poikilocytosis (manual Anisocytosis (manual) Macrocytosis (manual) Sodium 137 (132-148) mmol/L Potassium 3.6 (3.6-5.2) mmol/L Chloride 106 (98-107) mmol/L Carbon Dioxide 26 (22-30) mmol/L Anion Gap 8 L (10-20) BUN 17 (7-17) mg/dL Creatinine 0.6 L (0.7-1.2) MG/DL Est GFR ( Amer) > 60 Est GFR (Non-Af Amer) > 60 Random Glucose 103 (65-105) mg/dL Calcium 7.5 L (8.6-10.4) mg/dl Phosphorus 1.4 L (2.5-4.5) mg/dL Magnesium 1.9 (1.6-2.3) mg/dL Total Bilirubin 0.4 (0.2-1.3) mg/dL AST 21 (14-36) U/L ALT 29 (9-52) U/L Alkaline Phosphatase 126 D (38-126) U/L NT-Pro-B Natriuret Pep 7010 H (0-900) pg/mL Total Protein 4.7 L (6.3-8.3) g/dL Albumin 2.2 L (3.5-5.0) g/dL Globulin 2.4 (2.2-3.9) gm/dL Albumin/Globulin Ratio 0.9 L (1.0-2.1) Procalcitonin 2.31 H (0.19-0.49) NG/ML 08/26/16 Range/Units 06:12 WBC 10.2 (4.8-10.8) K/uL RBC 2.55 L (3.80-5.20) Mil/uL Hgb 9.3 L (11.0-16.0) g/dL Hct 27.8 L (34.0-47.0) % MCV 108.9 H (81.0-99.0) fL MCH 36.4 H (27.0-31.0) pg MCHC 33.4 (33.0-37.0) g/dL RDW 15.6 H (11.5-14.5) % Plt Count 224 (130-400) K/uL MPV 9.5 (7.2-11.7) fL Neut % (Auto) 93.6 H (50.0-75.0) % Lymph % (Auto) 2.0 L (20.0-40.0) % Estill % (Auto) 3.6 (0.0-10.0) % Eos % (Auto) 0.4 (0.0-4.0) % Baso % (Auto) 0.4 (0.0-2.0) % Neut # 9.5 H (1.8-7.0) K/uL Lymph # 0.2 L (1.0-4.3) K/uL Estill # 0.4 (0.0-0.8) K/uL Eos # 0.0 (0.0-0.7) K/uL Baso # 0.0 (0.0-0.2) K/uL Neutrophils % (Manual) 93 H (50-75) % Lymphocytes % (Manual) 4 L (20-40) % Monocytes % (Manual) 3 (0-10) % Platelet Estimate Normal (NORMAL) Hypochromasia (manual) Slight Poikilocytosis (manual Slight Anisocytosis (manual) Slight Macrocytosis (manual) Slight Sodium (132-148) mmol/L Potassium (3.6-5.2) mmol/L Chloride (98-107) mmol/L Carbon Dioxide (22-30) mmol/L Anion Gap (10-20) BUN (7-17) mg/dL Creatinine (0.7-1.2) MG/DL Est GFR ( Amer) Est GFR (Non-Af Amer) Random Glucose (65-105) mg/dL Calcium (8.6-10.4) mg/dl Phosphorus (2.5-4.5) mg/dL Magnesium (1.6-2.3) mg/dL Total Bilirubin (0.2-1.3) mg/dL AST (14-36) U/L ALT (9-52) U/L Alkaline Phosphatase (38-126) U/L NT-Pro-B Natriuret Pep (0-900) pg/mL Total Protein (6.3-8.3) g/dL Albumin (3.5-5.0) g/dL Globulin (2.2-3.9) gm/dL Albumin/Globulin Ratio (1.0-2.1) Procalcitonin (0.19-0.49) NG/ML Laboratory Results - last 24 hr 08/26/16 08/26/16 08/26/16 06:12 06:12 09:41 WBC 10.2 RBC 2.55 L Hgb 9.3 L Hct 27.8 L MCV 108.9 H MCH 36.4 H MCHC 33.4 RDW 15.6 H Plt Count 224 MPV 9.5 Neut % (Auto) 93.6 H Lymph % (Auto) 2.0 L Estill % (Auto) 3.6 Eos % (Auto) 0.4 Baso % (Auto) 0.4 Neut # 9.5 H Lymph # 0.2 L Estill # 0.4 Eos # 0.0 Baso # 0.0 Neutrophils % (Manual) 93 H Lymphocytes % (Manual) 4 L Monocytes % (Manual) 3 Platelet Estimate Normal Hypochromasia (manual) Slight Poikilocytosis (manual Slight Anisocytosis (manual) Slight Macrocytosis (manual) Slight Sodium 137 Potassium 3.6 Chloride 106 Carbon Dioxide 26 Anion Gap 8 L BUN 17 Creatinine 0.6 L Est GFR ( Amer) > 60 Est GFR (Non-Af Amer) > 60 Random Glucose 103 Calcium 7.5 L Phosphorus 1.4 L Magnesium 1.9 Total Bilirubin 0.4 AST 21 ALT 29 Alkaline Phosphatase 126 D NT-Pro-B Natriuret Pep Total Protein 4.7 L Albumin 2.2 L Globulin 2.4 Albumin/Globulin Ratio 0.9 L Procalcitonin 2.31 H 08/26/16 09:41 WBC RBC Hgb Hct MCV MCH MCHC RDW Plt Count MPV Neut % (Auto) Lymph % (Auto) Estill % (Auto) Eos % (Auto) Baso % (Auto) Neut # Lymph # Estill # Eos # Baso # Neutrophils % (Manual) Lymphocytes % (Manual) Monocytes % (Manual) Platelet Estimate Hypochromasia (manual) Poikilocytosis (manual Anisocytosis (manual) Macrocytosis (manual) Sodium Potassium Chloride Carbon Dioxide Anion Gap BUN Creatinine Est GFR ( Amer) Est GFR (Non-Af Amer) Random Glucose Calcium Phosphorus Magnesium Total Bilirubin AST ALT Alkaline Phosphatase NT-Pro-B Natriuret Pep 7010 H Total Protein Albumin Globulin Albumin/Globulin Ratio Procalcitonin Review of Systems - Review of Systems Systems not reviewed;Unavailable: Intubated Assessment/Plan - Assessment and Plan (Free Text) Assessment: 76 F PMHx HTN, A. fib, COPD (still smokes), anxiety, recurrent falls admitted for sepsis from UTI and bilateral hip fractures. Plan: Neuro: Responds to name. Alert and not on any sedation. Ativan 1mg ivp q[address] 08/15: negative Pulm: Respiratory failure likely secondary to recurrent aspiration pneumonia vs HAP vs ventilator acquired pna CPAP trial this AM (10, 500, 5, 50%) CXR 08/26: biapical pleural thickening with upper lobe granulomatous changes. Diffuse increased IS lung markings. Patchy consolidative changes in the mid to lower lung zones b/l with associated moderate b/l pleural effusions. Cardiomegaly. Chest pigtail catheter placed 08/19 for large R pleural effusion- removed 08/23 s/p thoracentesis of pleural effusion 08/19 WBC 12 RBC 219 Neutrophils 25 Lymphocytes 63 Monocytes 12 Fluid comment: few macrophages and mesothelials Total protein < 3 LDH 43 Glucose 106 Duoneb 3ml inh q6 sputum culture (08/14/16): Yeast species. - Start Diflucan 200mg IV daily x 14 days Cardiovascular: tachycardic and SBP in high 90s this CHF exacerbation resolved as per cardio proBNP 23751 (08/10)--> 87950 (08/12)--> 7010 (08/26) Patient given albumin one time 08/26 Echo 08/14: LA, LV, RA, RV appear normal; moderate to severe L systolic dysfunction; mitral, TV, Aortic valve normal; mild MR, TR with calculated pulmonary systolic pressure of 54mm consistent with mod pulmonary HTN; IVC is WNL; minimal anterior echo free space probably fat s/p cardiorespiratory arrest 08/14/16 with successful resuscitation Cardiac cath 08/13: nonischemic cardiomyopathy with EF 15-20%; 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; great collaterals from L to R system; no coronary intervention Echo 08/09: EF 25-30%; LV systolic function severely imparied; global hypokinesia more pronounced in anterospetal area; Grade I abnl relaxation pattern on transmitral doppler flow; MR moderate to severe; mild pulm HTN Digoxin 0.25mg po daily Lisinopril 5mg po daily - not given Lopressor 25mg po bid - not given Heme: no acute issues Renal: BUN/Cr 17/0.6 Patient has poor UO Endo: no acute issues GI: NGT feedings @ 35cc/hr tolerating with no residuals MSK: b/l hip fracture surgical intervention on hold at this time as patient is high risk Morphine 2mg ivp q4 prn pain ID: WBC 10.2 this AM procalcitonin (08/26/16) 2.31 Tylenol for temp 650mg po q6 prn Primaxin 250mg ivpb q8 sputum culture (08/14/16): Yeast species. - Start Diflucan 200mg IV daily x 14 days DVT proph: Heparin 5000u sc q8 GI proph: Protonix 40mg po daily Code status: full code Case discussed w Dr Zak Alvarez PGY-1 <Maurizio Crespo - Last Filed: 08/27/16 17:20> CCU Subjective - Physician Review Critical Care Time Spent (in minutes): 35 CCU Objective - Vital Signs / Intake & Output Vital Signs (Last 4 hours): Vital Signs Temp Pulse Resp BP Pulse Ox 08/27/16 16:00 98.6 F 90 16 100 08/27/16 15:16 86 17 97/53 L 100 08/27/16 15:00 72 18 100 08/27/16 14:16 118 H 20 122/58 L 100 08/27/16 14:00 91 H 18 100 08/27/16 13:16 83 20 109/52 L 100 08/27/16 13:00 80 18 100 Intake and Output (Last 8hrs): Intake & Output 08/27/16 08/27/16 08/27/16 06:59 14:59 22:59 Intake Total 380 610 70 Output Total 400 365 155 Balance -20 245 -85 Weight 127 lb Intake: Intake, IV Amount 100 200 Right PICC 100 200 Tube Feeding 280 280 70 Other 130 Output: Urine 400 365 155 Urethral (Martinez) 400 365 155 Other: # Bowel Movements 0 0 - Medications Active Medications: Active Medications Generic Name Dose Route Start Last Admin Trade Name Freq PRN Reason Stop Dose Admin Acetaminophen 650 mg 08/14/16 23:50 08/25/16 00:45 Tylenol 650mg/20.3ml Solution Ud PO 650 mg Q6H PRN Administration temp.100.4&above;mild pain 1-3 Albuterol/Ipratropium 3 ml 08/16/16 14:00 08/27/16 14:03 Duoneb 3 Mg/0.5 Mg (3 Ml) Ud INH 3 ml RQ6 [place] Administration Digoxin 0.25 mg 08/11/16 18:00 08/26/16 17:18 Lanoxin PO 0.25 mg DAILY@1800 [place] Administration Heparin Sodium (Porcine) 5,000 units 08/25/16 08:30 08/27/16 13:39 Heparin SC 5,000 units Q8 [place] Administration Imipenem/Cilastatin Sodium 250 100 mls @ 100 mls/hr 08/25/16 08:15 08/27/16 13:39 mg/ Sodium Chloride IVPB 100 mls/hr Q8 [place] Administration Fluconazole 100 mls @ 100 mls/hr 08/27/16 10:15 08/27/16 10:33 Diflucan Iv 200 Mg/100 Ml Ns IVPB 100 mls/hr DAILY [place] Administration Lisinopril 5 mg 08/17/16 10:00 08/27/16 10:46 Zestril PO 5 mg DAILY [place] Administration Lorazepam 1 mg 08/24/16 13:13 08/26/16 14:45 Ativan IVP 1 mg Q4 PRN Administration Anxiety Metoprolol Tartrate 25 mg 08/12/16 18:00 08/27/16 09:50 Lopressor PO 25 mg BID [place] Administration Morphine Sulfate 2 mg 08/22/16 03:45 08/26/16 17:11 Morphine IVP 2 mg Q4 PRN Administration Pain, severe (8-10) Pantoprazole Sodium 40 mg 08/27/16 06:00 08/27/16 09:15 Protonix Susp PO 40 mg 0600 [place] Administration - Patient Studies Lab Studies: Microbiology Studies 08/25/16 08:09 Gram Stain - Final Trachasp Lab Studies 08/27/16 08/27/16 08/27/16 Range/Units 06:23 06:23 05:08 WBC 10.9 H (4.8-10.8) K/uL RBC 2.97 L (3.80-5.20) Mil/uL Hgb 10.5 L (11.0-16.0) g/dL Hct 32.7 L (34.0-47.0) % MCV 110.1 H (81.0-99.0) fL MCH 35.2 H (27.0-31.0) pg MCHC 32.0 L (33.0-37.0) g/dL RDW 16.2 H (11.5-14.5) % Plt Count 246 (130-400) K/uL MPV 10.3 (7.2-11.7) fL Neut % (Auto) 91.9 H (50.0-75.0) % Lymph % (Auto) 2.9 L (20.0-40.0) % Estill % (Auto) 3.1 (0.0-10.0) % Eos % (Auto) 0.8 (0.0-4.0) % Baso % (Auto) 1.3 (0.0-2.0) % Neut # 10.0 H (1.8-7.0) K/uL Lymph # 0.3 L (1.0-4.3) K/uL Estill # 0.3 (0.0-0.8) K/uL Eos # 0.1 (0.0-0.7) K/uL Baso # 0.1 (0.0-0.2) K/uL Neutrophils % (Manual) 86 H (50-75) % Band Neutrophils % 8 H (0-2) % Lymphocytes % (Manual) 2 L (20-40) % Monocytes % (Manual) 3 (0-10) % Eosinophils % (Manual) 1 (0-4) % Platelet Estimate Normal (NORMAL) Hypochromasia (manual) Slight Poikilocytosis (manual Slight Anisocytosis (manual) Slight Puncture Site Lr pCO2 47 H (35-45) mm/Hg pO2 130 H (80-100) mm/Hg HCO3 29.5 H (21-28) mmol/L ABG pH 7.43 (7.35-7.45) ABG Total CO2 32.6 H (22-28) mmol/L ABG O2 Saturation 99.7 H (95-98) % ABG Base Excess 5.9 H (-2.0-3.0) mmol/L ABG Hemoglobin 12.5 (11.7-17.4) g/dL ABG Carboxyhemoglobin 1.4 (0.5-1.5) % POC ABG HHb (Measured) 0.3 (0.0-5.0) % ABG Methemoglobin 0.8 (0.0-3.0) % Seng Test Pos A-a O2 Difference 310.0 mm/Hg Respiratory Index 2.4 Hgb O2 Saturation 97.5 (95.0-98.0) % Mechanical Rate 14 FiO2 70.0 % Tidal Volume 450 PEEP 5 Sodium 136 (132-148) mmol/L Potassium 3.7 (3.6-5.2) mmol/L Chloride 101 (98-107) mmol/L Carbon Dioxide 31 H (22-30) mmol/L Anion Gap 8 L (10-20) BUN 17 (7-17) mg/dL Creatinine 0.6 L (0.7-1.2) MG/DL Est GFR ( Amer) > 60 Est GFR (Non-Af Amer) > 60 Random Glucose 132 H (65-105) mg/dL Calcium 7.8 L (8.6-10.4) mg/dl Phosphorus 2.0 L (2.5-4.5) mg/dL Magnesium 1.7 (1.6-2.3) mg/dL Total Bilirubin 0.4 (0.2-1.3) mg/dL AST 24 (14-36) U/L ALT 37 (9-52) U/L Alkaline Phosphatase 159 H D (38-126) U/L Total Protein 5.4 L (6.3-8.3) g/dL Albumin 2.5 L (3.5-5.0) g/dL Globulin 3.0 (2.2-3.9) gm/dL Albumin/Globulin Ratio 0.8 L (1.0-2.1) Laboratory Results - last 24 hr 08/27/16 08/27/16 08/27/16 05:08 06:23 06:23 WBC 10.9 H RBC 2.97 L Hgb 10.5 L Hct 32.7 L MCV 110.1 H MCH 35.2 H MCHC 32.0 L RDW 16.2 H Plt Count 246 MPV 10.3 Neut % (Auto) 91.9 H Lymph % (Auto) 2.9 L Estill % (Auto) 3.1 Eos % (Auto) 0.8 Baso % (Auto) 1.3 Neut # 10.0 H Lymph # 0.3 L Estill # 0.3 Eos # 0.1 Baso # 0.1 Neutrophils % (Manual) 86 H Band Neutrophils % 8 H Lymphocytes % (Manual) 2 L Monocytes % (Manual) 3 Eosinophils % (Manual) 1 Platelet Estimate Normal Hypochromasia (manual) Slight Poikilocytosis (manual Slight Anisocytosis (manual) Slight Puncture Site Lr pCO2 47 H pO2 130 H HCO3 29.5 H ABG pH 7.43 ABG Total CO2 32.6 H ABG O2 Saturation 99.7 H ABG Base Excess 5.9 H ABG Hemoglobin 12.5 ABG Carboxyhemoglobin 1.4 POC ABG HHb (Measured) 0.3 ABG Methemoglobin 0.8 Seng Test Pos A-a O2 Difference 310.0 Respiratory Index 2.4 Hgb O2 Saturation 97.5 Mechanical Rate 14 FiO2 70.0 Tidal Volume 450 PEEP 5 Sodium 136 Potassium 3.7 Chloride 101 Carbon Dioxide 31 H Anion Gap 8 L BUN 17 Creatinine 0.6 L Est GFR ( Amer) > 60 Est GFR (Non-Af Amer) > 60 Random Glucose 132 H Calcium 7.8 L Phosphorus 2.0 L Magnesium 1.7 Total Bilirubin 0.4 AST 24 ALT 37 Alkaline Phosphatase 159 H D Total Protein 5.4 L Albumin 2.5 L Globulin 3.0 Albumin/Globulin Ratio 0.8 L Assessment/Plan (1) Acute respiratory failure Current Visit: Yes Status: Acute Comment: Status post extubation yesterday and comfortable in no respiratory distress Continue diuretics and antibiotics Start feeding (2) CHF exacerbation Current Visit: Yes Status: Resolved (3) Closed fracture of greater trochanter of left femur Current Visit: Yes Status: Acute (4) Garden grade IV closed subcapital fracture of proximal end of right femur Current Visit: Yes Status: Acute Attending/Attestation - Attestation I have personally seen and examined this patient.: Yes I have fully participated in the care of the patient.: Yes I have reviewed all pertinent clinical information: Yes Notes (Text): 08/27/16 16:56 Patient seen and examined in the intensive care unit. Case discussed with house staff in the morning rounds. Remains intubated but tolerating CPAP off sedation and responds to vocal commands by opening eyes Continue present treatment Continue antibiotics Continue Lasix as needed
[2016-08-27 05:45] LABS: ABG ALLEN TEST POS; ARTERIAL BLOOD GAS HCO3 29.5 mmol/L (21-28); ARTERIAL BLOOD GAS HEMOGLOBIN 12.5 g/dL (11.7-17.4); ARTERIAL BLOOD GAS O2 SAT 99.7 % (95-98); ARTERIAL BLOOD GAS PCO2 47 mm/Hg (35-45); ARTERIAL BLOOD GAS PH 7.43 (7.35-7.45); ARTERIAL BLOOD GAS PO2 130 mm/Hg (80-100); ARTERIAL BLOOD GAS TCO2 32.6 mmol/L (22-28)
[2016-08-27 06:49] LABS: BASO # 0.1 K/uL (0.0-0.2); BASO % 1.3 % (0.0-2.0); EOS # 0.1 K/uL (0.0-0.7); EOS % 0.8 % (0.0-4.0); HEMOGLOBIN 10.5 g/dL (11.0-16.0); LYMPH # 0.3 K/uL (1.0-4.3); LYMPH % 2.9 % (20.0-40.0); MEAN CELL VOLUME 110.1 fL (81.0-99.0); MEAN CORPUSCULAR HEMOGLOBIN 35.2 pg (27.0-31.0); MEAN PLATELET VOLUME 10.3 fL (7.2-11.7); MONO # 0.3 K/uL (0.0-0.8); MONO % 3.1 % (0.0-10.0); NEUT % 91.9 % (50.0-75.0); PLATELET COUNT 246 K/uL (130-400); RBC 2.97 Mil/uL (3.80-5.20); RED CELL DISTRIBUTION WIDTH 16.2 % (11.5-14.5); WHITE BLOOD COUNT 10.9 K/uL (4.8-10.8)
[2016-08-27 06:58] LABS: ALBUMIN 2.5 g/dL (3.5-5.0)
[2016-08-27 07:01] LABS: ALB/GLOB RATIO 0.8 (1.0-2.1); ALT/SGPT 37 U/L (9-52); AST/SGOT 24 U/L (14-36); BLOOD UREA NITROGEN 17 mg/dL (7-17); GFR AFRICAN-AMERICAN > 60; GFR NON-AFRICAN AMERICAN > 60
[2016-08-27 07:02] LABS: CALCIUM 7.8 mg/dl (8.6-10.4); MAGNESIUM 1.7 mg/dL (1.6-2.3)
--- NOTE | 2016-08-27 08:20 | CP.PCM.PN ---
Subjective - Date & Time of Evaluation Date of Evaluation: 08/27/16 Time of Evaluation: 08:13 - Subjective Subjective: Patient intubated, opens eyes, doesn't follow commands. Objective - Vital Signs/Intake and Output Vital Signs (last 24 hours): Temp Pulse Resp BP Pulse Ox 98.7 F 112 H 14 149/62 100 08/27/16 08:00 08/27/16 08:00 08/27/16 08:00 08/27/16 07:45 08/27/16 08:00 Intake and Output: 08/27/16 08/27/16 06:59 18:59 Intake Total 585 100 Output Total 550 100 Balance 35 0 - Medications Medications: Current Medications Acetaminophen (Tylenol 650mg/20.3ml Solution Ud) 650 mg PO Q6H PRN PRN Reason: temp.100.4&above;mild pain 1-3 Last Admin: 08/25/16 00:45 Dose: 650 mg Albuterol/Ipratropium (Duoneb 3 Mg/0.5 Mg (3 Ml) Ud) 3 ml INH RQ6 [facility] Last Admin: 08/27/16 01:05 Dose: 3 ml Digoxin (Lanoxin) 0.25 mg PO DAILY@1800 [facility] Last Admin: 08/26/16 17:18 Dose: 0.25 mg Heparin Sodium (Porcine) (Heparin) 5,000 units SC Q8 [facility] Last Admin: 08/27/16 05:23 Dose: 5,000 units Imipenem/Cilastatin Sodium 250 (mg/ Sodium Chloride) 100 mls @ 100 mls/hr IVPB Q8 [facility] Last Admin: 08/27/16 05:23 Dose: 100 mls/hr Lisinopril (Zestril) 5 mg PO DAILY [facility] Last Admin: 08/26/16 14:12 Dose: 5 mg Lorazepam (Ativan) 1 mg IVP Q4 PRN PRN Reason: Anxiety Last Admin: 08/26/16 14:45 Dose: 1 mg Metoprolol Tartrate (Lopressor) 25 mg PO BID [facility] Last Admin: 08/26/16 17:17 Dose: 25 mg Morphine Sulfate (Morphine) 2 mg IVP Q4 PRN PRN Reason: Pain, severe (8-10) Last Admin: 08/26/16 17:11 Dose: 2 mg Pantoprazole Sodium (Protonix Susp) 40 mg PO 0600 [facility] - Labs Labs: 08/27/16 06:23 08/27/16 06:23 PT 10.6 SECONDS (9.7-12.2) 08/21/16 06:11 INR 1.0 08/21/16 06:11 APTT 29 SECONDS (21-34) 08/21/16 06:11 - Extremities Exam Additional comments: RLE: Venodynes intact B, noted BLE edema, +heel protector boots, +DP pulse, toes warm Assessment and Plan (1) Garden grade IV closed subcapital fracture of proximal end of right femur Assessment & Plan: resp failure, patient intubated currently not stable for surgery per medical team will follow d/w Dr. Elena, agrees with above Status: Acute (2) Degenerative joint disease of right hip Status: Chronic (3) Closed fracture of greater trochanter of left femur Assessment & Plan: non operative Status: Acute
[2016-08-27 08:33] LABS: ANISOCYTOSIS SLIGHT; BANDS 8 % (0-2); EOSINOPHIL 1 % (0-4); HYPOCHROMIC SLIGHT; LYMPHOCYTE 2 % (20-40); MONOCYTE 3 % (0-10); NEUTROPHIL 86 % (50-75); PLATELET ESTIMATE NORMAL (NORMAL); POIKILOCYTOSIS SLIGHT; TOTAL CELLS COUNTED 100
--- NOTE | 2016-08-27 08:39 | RAD ---
HISTORY: intubated on vent COMPARISON: 08/26/2016 FINDINGS: LUNGS: Ill-defined opacity at right base grossly unchanged. Air bronchograms and retrocardiac left base consistent with focal consolidation. PLEURA: No definite pleural effusion. No pneumothorax. CARDIOVASCULAR: ET tube, NG tube and right PICC catheter unchanged. OSSEOUS STRUCTURES: No significant abnormalities. VISUALIZED UPPER ABDOMEN: Normal. OTHER FINDINGS: None. IMPRESSION: Bibasilar infiltrates. Lines and tubes unchanged.
--- NOTE | 2016-08-27 09:10 | CARD ---
APPROVED REPORT EKG Measurement Heart [id number] <Conclusion> Sinus rhythm with marked sinus arrhythmia Nonspecific ST and T wave abnormality Abnormal ECG
--- NOTE | 2016-08-27 09:10 | CARD ---
APPROVED REPORT EKG Measurement Heart [id number] <Conclusion> Sinus rhythm with premature atrial complexes Low voltage QRS Cannot rule out Inferior infarct, age undetermined Cannot rule out Anterior infarct, age undetermined Abnormal ECG
[2016-08-27] MEDS: Pantoprazole 40 mg Susp UD PO SCH (09:15)
--- NOTE | 2016-08-27 09:57 | CP.PCM.PN ---
Subjective - Date & Time of Evaluation Date of Evaluation: 08/27/16 Time of Evaluation: 09:55 - Subjective Subjective: Progress Note for Dr. Peacock Pt seen and examined at bedside. Pt intubated at this time. No acute events overnight. No improvement with respiratory secretions at this time. ROS unobtainable due to pt condition. Objective - Vital Signs/Intake and Output Vital Signs (last 24 hours): Temp Pulse Resp BP Pulse Ox 98.7 F 101 H 12 113/52 L 100 08/27/16 08:00 08/27/16 09:00 08/27/16 09:00 08/27/16 09:50 08/27/16 09:00 Intake and Output: 08/27/16 08/27/16 06:59 18:59 Intake Total 585 135 Output Total 550 190 Balance 35 -55 - Medications Medications: Current Medications Acetaminophen (Tylenol 650mg/20.3ml Solution Ud) 650 mg PO Q6H PRN PRN Reason: temp.100.4&above;mild pain 1-3 Last Admin: 08/25/16 00:45 Dose: 650 mg Albuterol/Ipratropium (Duoneb 3 Mg/0.5 Mg (3 Ml) Ud) 3 ml INH RQ6 [facility] Last Admin: 08/27/16 08:21 Dose: 3 ml Digoxin (Lanoxin) 0.25 mg PO DAILY@1800 [facility] Last Admin: 08/26/16 17:18 Dose: 0.25 mg Heparin Sodium (Porcine) (Heparin) 5,000 units SC Q8 [facility] Last Admin: 08/27/16 05:23 Dose: 5,000 units Imipenem/Cilastatin Sodium 250 (mg/ Sodium Chloride) 100 mls @ 100 mls/hr IVPB Q8 [facility] Last Admin: 08/27/16 05:23 Dose: 100 mls/hr Lisinopril (Zestril) 5 mg PO DAILY [facility] Last Admin: 08/26/16 14:12 Dose: 5 mg Lorazepam (Ativan) 1 mg IVP Q4 PRN PRN Reason: Anxiety Last Admin: 08/26/16 14:45 Dose: 1 mg Metoprolol Tartrate (Lopressor) 25 mg PO BID [facility] Last Admin: 08/27/16 09:50 Dose: 25 mg Morphine Sulfate (Morphine) 2 mg IVP Q4 PRN PRN Reason: Pain, severe (8-10) Last Admin: 08/26/16 17:11 Dose: 2 mg Pantoprazole Sodium (Protonix Susp) 40 mg PO 0600 [place] Last Admin: 08/27/16 09:15 Dose: 40 mg - Labs Labs: 08/27/16 06:23 08/27/16 06:23 PT 10.6 SECONDS (9.7-12.2) 08/21/16 06:11 INR 1.0 08/21/16 06:11 APTT 29 SECONDS (21-34) 08/21/16 06:11 - Constitutional Appears: Toxic - ENT Exam ENT Exam: Mucous Membranes Dry - Respiratory Exam Respiratory Exam: Decreased Breath Sounds. absent: Rales Additional comments: Intubated - Cardiovascular Exam Cardiovascular Exam: Irregular Rhythm, +S1, +S2 - GI/Abdominal Exam GI & Abdominal Exam: Soft, Normal Bowel Sounds. absent: Tenderness - Extremities Exam Extremities Exam: Pedal Edema - Skin Skin Exam: Normal Color, Warm Assessment and Plan (1) CHF exacerbation Assessment & Plan: CHF exacerbation resolved Pt remains a high risk for surgery at this time Prognosis remains very poor Continue current medical management Status: Resolved
[2016-08-27] MEDS: Fluconazole IV 200mg/100 ml NS 100 ML IVPB SCH (10:33)
[2016-08-27] MEDS: Digoxin 250 mcg (0.25 mg) Tab PO SCH (17:07)
--- NOTE | 2016-08-27 23:04 | CP.PCM.PN ---
Subjective - Date & Time of Evaluation Date of Evaluation: 08/27/16 Time of Evaluation: 20:30 - Subjective Subjective: Patient on respirator, lethargic, afebrile. CXR: bilateral basilar infiltrates. Sputum grew fungi. On Difucan IV. Objective - Vital Signs/Intake and Output Vital Signs (last 24 hours): Temp Pulse Resp BP Pulse Ox 98.6 F 91 H 21 133/72 100 08/27/16 16:00 08/27/16 20:16 08/27/16 20:16 08/27/16 20:16 08/27/16 20:16 Intake and Output: 08/27/16 08/28/16 18:59 06:59 Intake Total 800 70 Output Total 640 70 Balance 160 0 - Medications Medications: Current Medications Acetaminophen (Tylenol 650mg/20.3ml Solution Ud) 650 mg PO Q6H PRN PRN Reason: temp.100.4&above;mild pain 1-3 Last Admin: 08/25/16 00:45 Dose: 650 mg Albuterol/Ipratropium (Duoneb 3 Mg/0.5 Mg (3 Ml) Ud) 3 ml INH RQ6 [facility] Last Admin: 08/27/16 19:44 Dose: 3 ml Digoxin (Lanoxin) 0.25 mg PO DAILY@1800 [facility] Last Admin: 08/27/16 17:07 Dose: 0.25 mg Heparin Sodium (Porcine) (Heparin) 5,000 units SC Q8 [facility] Last Admin: 08/27/16 22:07 Dose: 5,000 units Imipenem/Cilastatin Sodium 250 (mg/ Sodium Chloride) 100 mls @ 100 mls/hr IVPB Q8 [facility] Last Admin: 08/27/16 22:04 Dose: 100 mls/hr Fluconazole (Diflucan Iv 200 Mg/100 Ml Ns) 100 mls @ 100 mls/hr IVPB DAILY [facility] Last Admin: 08/27/16 10:33 Dose: 100 mls/hr Lisinopril (Zestril) 5 mg PO DAILY [facility] Last Admin: 08/27/16 10:46 Dose: 5 mg Lorazepam (Ativan) 1 mg IVP Q4 PRN PRN Reason: Anxiety Last Admin: 08/26/16 14:45 Dose: 1 mg Metoprolol Tartrate (Lopressor) 25 mg PO BID [facility] Last Admin: 08/27/16 17:07 Dose: 25 mg Morphine Sulfate (Morphine) 2 mg IVP Q4 PRN PRN Reason: Pain, severe (8-10) Last Admin: 08/27/16 17:29 Dose: 2 mg Pantoprazole Sodium (Protonix Susp) 40 mg PO 0600 [place] Last Admin: 08/27/16 09:15 Dose: 40 mg - Labs Labs: 08/27/16 06:23 08/27/16 06:23 PT 10.6 SECONDS (9.7-12.2) 08/21/16 06:11 INR 1.0 08/21/16 06:11 APTT 29 SECONDS (21-34) 08/21/16 06:11 - Constitutional Appears: Chronically Ill - Head Exam Head Exam: NORMAL INSPECTION - Eye Exam Eye Exam: Normal appearance - ENT Exam ENT Exam: Normal Exam - Neck Exam Neck Exam: Normal Inspection - Respiratory Exam Additional comments: Rhonchi bilaterally. - Cardiovascular Exam Cardiovascular Exam: REGULAR RHYTHM - GI/Abdominal Exam GI & Abdominal Exam: Soft, Normal Bowel Sounds - Rectal Exam Rectal Exam: Deferred - Extremities Exam Additional comments: Edematous lower extremities. - Neurological Exam Additional comments: Lethargic. - Psychiatric Exam Additional comments: Lethargic. - Skin Skin Exam: Dry, Intact Assessment and Plan (1) Closed fracture of greater trochanter of left femur Status: Acute (2) Dehydration Status: Resolved (3) Sepsis Status: Resolved (4) Fall Status: Acute (5) Arrhythmia Status: Resolved (6) Contusion of head Status: Acute (7) Garden grade IV closed subcapital fracture of proximal end of right femur Status: Acute (8) CHF exacerbation Status: Resolved (9) Acute respiratory failure Assessment & Plan: Continue to wean off respirator. Status: Acute (10) Pleural effusion, right Status: Resolved (11) Right middle lobe pneumonia Assessment & Plan: To continue IV antibiotic and IV Diflucan. Status: Acute
[2016-08-28] MEDS: Albuterol-Ipratrop 3 mg / 0.5 (3 ml) UD INH SCH ×4 (01:26→20:42)
[2016-08-28 05:31] LABS: ARTERIAL BLOOD GAS HEMOGLOBIN 9.9 g/dL (11.7-17.4); ARTERIAL BLOOD GAS O2 SAT 99.5 % (95-98); ARTERIAL BLOOD GAS PCO2 47 mm/Hg (35-45); ARTERIAL BLOOD GAS PH 7.48 (7.35-7.45); ARTERIAL BLOOD GAS PO2 108 mm/Hg (80-100); ARTERIAL BLOOD GAS TCO2 36.4 mmol/L (22-28)
[2016-08-28] MEDS: Imipenem/Cilastatin 250 MG in Sodium Chloride 100 ML IVPB SCH ×3 (05:46→22:02)
[2016-08-28] MEDS: Pantoprazole 40 mg Susp UD PO SCH (05:47)
--- NOTE | 2016-08-28 06:27 | CP.CCUPN ---
<Sierra Waters - Last Filed: 08/28/16 12:49> CCU Subjective - Physician Review Subjective (Free Text): 08/28/16 12:35 Patient seen and examined at bedside. Afebrile overnight. Patient tolerated CPAP + PS for 13 hours the day before but was switched back to PRVC overnight Patient currently on CPAP + PS (5, 10, 50%) ET tube has some secretions Patient is not on any sedation Patient opens eyes to name and follows simple commands- lifted arms Tolerating feeds at @35cc/hr Making urine 30-50cc/hr Complete ROS unobtainable CCU Objective - Vital Signs / Intake & Output Vital Signs (Last 4 hours): Vital Signs Temp Pulse Resp BP Pulse Ox 08/28/16 05:16 99 H 14 139/75 100 08/28/16 05:00 99 H 16 100 08/28/16 04:16 118 H 14 136/76 100 08/28/16 04:00 99.5 F 95 H 20 100 08/28/16 03:16 117 H 18 138/69 100 08/28/16 03:00 113 H 14 100 Intake and Output (Last 8hrs): Intake & Output 08/27/16 08/27/16 08/28/16 14:59 22:59 06:59 Intake Total 610 430 345 Output Total 365 395 180 Balance 245 35 165 Weight 127 lb Intake: Intake, IV Amount 200 100 100 Right PICC 200 100 100 Tube Feeding 280 280 245 Other 130 50 Output: Urine 365 395 180 Urethral (Martinez) 365 395 180 Other: # Bowel Movements 0 0 - Physical Exam Head: Positive for: Normocephalic, Ecchymosis, Other (Contusions over left side of face healing). Negative for: Atraumatic Pupils: Positive for: PERRL Extroacular Muscles: Positive for: Other (opens eyes to name) Conjunctiva: Positive for: Normal. Negative for: Injected, Icteric Mouth: Positive for: Dry, Other (ET tube in place- secretions noted) Neck: Negative for: JVD, Bruit Respiratory/Chest: Positive for: Good Air Exchange, Decreased Breath Sounds ( bibasilar R > L), Rales (bibasilar ), Other (intubated on vent). Negative for: Clear to Auscultation, Respiratory Distress, Accessory Muscle Use, Wheezes, Retracting, Rhonchi Cardiovascular: Positive for: Normal S1, S2, Peripheal Pulses Present, Tachycardic. Negative for: Murmurs, Irregular Rhythm Abdomen: Positive for: Normal Bowel Sounds. Negative for: Tenderness, Distention, Peritoneal Signs, Rebound, Guarding Upper Extremity: Positive for: Normal Inspection, NORMAL PULSES. Negative for: Edema Lower Extremity: Positive for: NORMAL PULSES, Deformity (right leg shortened and externally rotated ), Other (grimaces when b/l hips palpated; offloading boots secure). Negative for: Normal Inspection, Edema, Normal ROM Neurological: Positive for: Other (responds to name and grimaces) Skin: Positive for: Warm, Dry, Normal Color, Other (b/l ecchymosis on face noted ). Negative for: Rashes Psychiatric: Positive for: Alert (responds to name ) - Medications Active Medications: Active Medications Generic Name Dose Route Start Last Admin Trade Name Freq PRN Reason Stop Dose Admin Acetaminophen 650 mg 08/14/16 23:50 08/25/16 00:45 Tylenol 650mg/20.3ml Solution Ud PO 650 mg Q6H PRN Administration temp.100.4&above;mild pain 1-3 Albuterol/Ipratropium 3 ml 08/16/16 14:00 08/28/16 01:26 Duoneb 3 Mg/0.5 Mg (3 Ml) Ud INH 3 ml RQ6 [facility] Administration Digoxin 0.25 mg 08/11/16 18:00 08/27/16 17:07 Lanoxin PO 0.25 mg DAILY@1800 [facility] Administration Heparin Sodium (Porcine) 5,000 units 08/25/16 08:30 08/28/16 05:47 Heparin SC 5,000 units Q8 [facility] Administration Imipenem/Cilastatin Sodium 250 100 mls @ 100 mls/hr 08/25/16 08:15 08/28/16 05:46 mg/ Sodium Chloride IVPB 100 mls/hr Q8 [facility] Administration Fluconazole 100 mls @ 100 mls/hr 08/27/16 10:15 08/27/16 10:33 Diflucan Iv 200 Mg/100 Ml Ns IVPB 100 mls/hr DAILY [facility] Administration Lisinopril 5 mg 08/17/16 10:00 08/27/16 10:46 Zestril PO 5 mg DAILY [facility] Administration Lorazepam 1 mg 08/24/16 13:13 08/26/16 14:45 Ativan IVP 1 mg Q4 PRN Administration Anxiety Metoprolol Tartrate 25 mg 08/12/16 18:00 08/27/16 17:07 Lopressor PO 25 mg BID [facility] Administration Morphine Sulfate 2 mg 08/22/16 03:45 08/27/16 17:29 Morphine IVP 2 mg Q4 PRN Administration Pain, severe (8-10) Pantoprazole Sodium 40 mg 08/27/16 06:00 08/28/16 05:47 Protonix Susp PO 40 mg 0600 [place] Administration - Patient Studies Lab Studies: Lab Studies 08/28/16 08/27/16 08/27/16 Range/Units 05:14 06:23 06:23 WBC 10.9 H (4.8-10.8) K/uL RBC 2.97 L (3.80-5.20) Mil/uL Hgb 10.5 L (11.0-16.0) g/dL Hct 32.7 L (34.0-47.0) % MCV 110.1 H (81.0-99.0) fL MCH 35.2 H (27.0-31.0) pg MCHC 32.0 L (33.0-37.0) g/dL RDW 16.2 H (11.5-14.5) % Plt Count 246 (130-400) K/uL MPV 10.3 (7.2-11.7) fL Neut % (Auto) 91.9 H (50.0-75.0) % Lymph % (Auto) 2.9 L (20.0-40.0) % [place] % (Auto) 3.1 (0.0-10.0) % Eos % (Auto) 0.8 (0.0-4.0) % Baso % (Auto) 1.3 (0.0-2.0) % Neut # 10.0 H (1.8-7.0) K/uL Lymph # 0.3 L (1.0-4.3) K/uL [place] # 0.3 (0.0-0.8) K/uL Eos # 0.1 (0.0-0.7) K/uL Baso # 0.1 (0.0-0.2) K/uL Neutrophils % (Manual) 86 H (50-75) % Band Neutrophils % 8 H (0-2) % Lymphocytes % (Manual) 2 L (20-40) % Monocytes % (Manual) 3 (0-10) % Eosinophils % (Manual) 1 (0-4) % Platelet Estimate Normal (NORMAL) Hypochromasia (manual) Slight Poikilocytosis (manual Slight Anisocytosis (manual) Slight Puncture Site Lb pCO2 47 H (35-45) mm/Hg pO2 108 H (80-100) mm/Hg HCO3 33.0 H (21-28) mmol/L ABG pH 7.48 H (7.35-7.45) ABG Total CO2 36.4 H (22-28) mmol/L ABG O2 Saturation 99.5 H (95-98) % ABG Base Excess 10.3 H (-2.0-3.0) mmol/L ABG Hemoglobin 9.9 L (11.7-17.4) g/dL ABG Carboxyhemoglobin 1.7 H (0.5-1.5) % POC ABG HHb (Measured) 0.5 (0.0-5.0) % ABG Methemoglobin 1.0 (0.0-3.0) % Seng Test Na A-a O2 Difference 190.0 mm/Hg Respiratory Index 1.8 Hgb O2 Saturation 96.8 (95.0-98.0) % Mechanical Rate 14 FiO2 50.0 % Tidal Volume 450 PEEP 5 Sodium 136 (132-148) mmol/L Potassium 3.7 (3.6-5.2) mmol/L Chloride 101 (98-107) mmol/L Carbon Dioxide 31 H (22-30) mmol/L Anion Gap 8 L (10-20) BUN 17 (7-17) mg/dL Creatinine 0.6 L (0.7-1.2) MG/DL Est GFR ( Amer) > 60 Est GFR (Non-Af Amer) > 60 Random Glucose 132 H (65-105) mg/dL Calcium 7.8 L (8.6-10.4) mg/dl Phosphorus 2.0 L (2.5-4.5) mg/dL Magnesium 1.7 (1.6-2.3) mg/dL Total Bilirubin 0.4 (0.2-1.3) mg/dL AST 24 (14-36) U/L ALT 37 (9-52) U/L Alkaline Phosphatase 159 H D (38-126) U/L Total Protein 5.4 L (6.3-8.3) g/dL Albumin 2.5 L (3.5-5.0) g/dL Globulin 3.0 (2.2-3.9) gm/dL Albumin/Globulin Ratio 0.8 L (1.0-2.1) Laboratory Results - last 24 hr 08/27/16 08/27/16 08/28/16 06:23 06:23 05:14 WBC 10.9 H RBC 2.97 L Hgb 10.5 L Hct 32.7 L MCV 110.1 H MCH 35.2 H MCHC 32.0 L RDW 16.2 H Plt Count 246 MPV 10.3 Neut % (Auto) 91.9 H Lymph % (Auto) 2.9 L [place] % (Auto) 3.1 Eos % (Auto) 0.8 Baso % (Auto) 1.3 Neut # 10.0 H Lymph # 0.3 L [place] # 0.3 Eos # 0.1 Baso # 0.1 Neutrophils % (Manual) 86 H Band Neutrophils % 8 H Lymphocytes % (Manual) 2 L Monocytes % (Manual) 3 Eosinophils % (Manual) 1 Platelet Estimate Normal Hypochromasia (manual) Slight Poikilocytosis (manual Slight Anisocytosis (manual) Slight Puncture Site Lb pCO2 47 H pO2 108 H HCO3 33.0 H ABG pH 7.48 H ABG Total CO2 36.4 H ABG O2 Saturation 99.5 H ABG Base Excess 10.3 H ABG Hemoglobin 9.9 L ABG Carboxyhemoglobin 1.7 H POC ABG HHb (Measured) 0.5 ABG Methemoglobin 1.0 Seng Test Na A-a O2 Difference 190.0 Respiratory Index 1.8 Hgb O2 Saturation 96.8 Mechanical Rate 14 FiO2 50.0 Tidal Volume 450 PEEP 5 Sodium 136 Potassium 3.7 Chloride 101 Carbon Dioxide 31 H Anion Gap 8 L BUN 17 Creatinine 0.6 L Est GFR ( Amer) > 60 Est GFR (Non-Af Amer) > 60 Random Glucose 132 H Calcium 7.8 L Phosphorus 2.0 L Magnesium 1.7 Total Bilirubin 0.4 AST 24 ALT 37 Alkaline Phosphatase 159 H D Total Protein 5.4 L Albumin 2.5 L Globulin 3.0 Albumin/Globulin Ratio 0.8 L Review of Systems - Review of Systems Systems not reviewed;Unavailable: Intubated Assessment/Plan - Assessment and Plan (Free Text) Assessment: 76 F PMHx HTN, A. fib, COPD (still smokes), anxiety, recurrent falls admitted for sepsis from UTI and bilateral hip fractures. Plan: Neuro: -Responds to name and follows simple commands. Alert and not on any sedation. -Ativan 1mg ivp q5 prn anxiety -Head CT 08/15: negative Pulm: -Respiratory failure likely secondary to recurrent aspiration pneumonia vs HAP vs ventilator acquired pna -CPAP trial this AM (10, 5, 50%) -CXR 08/28: hyperinflation suggestive for COPD or emphysematous changes; scattered nodular densities in both lungs; diffuse increased IS lung markings; patchy consolidative changes at the lung bases with associated L pleural effusion -Chest pigtail catheter placed 08/19 for large R pleural effusion- removed 08/23 -s/p thoracentesis of pleural effusion 08/19 WBC 12 RBC 219 Neutrophils 25 Lymphocytes 63 Monocytes 12 Fluid comment: few macrophages and mesothelials Total protein < 3 LDH 43 Glucose 106 -sputum culture (08/14/16): Yeast species. 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; great collaterals from L to R system; no coronary intervention -Echo 08/09: EF 25-30%; LV systolic function severely imparied; global hypokinesia more pronounced in anterospetal area; Grade I abnl relaxation pattern on transmitral doppler flow; MR moderate to severe; mild pulm HTN -Digoxin 0.25mg po daily -Lisinopril 5mg po daily -Lopressor 25mg po bid -Lasix 40mg ivp every other day -Aldactone 25mg po daily -Patient given albumin one time 08/26 Heme: -no acute issues Renal: -BUN/Cr 18/0.5 -UO improving Endo: -no acute issues GI: -NGT feedings @ 35cc/hr tolerating with no residuals MSK: -b/l hip fracture -surgical intervention sometime next week for hip fracture -Morphine 2mg ivp q4 prn pain ID: -procalcitonin (08/26/16) 2.31 -Tylenol for temp 650mg po q6 prn -Primaxin 250mg ivpb q8 -sputum culture 08/14: Yeast species. -urine culture 08/14: yeast species -Diflucan 200mg IV daily x 14 days DVT proph: Heparin 5000u sc q12 GI proph: Protonix 40mg po daily Code status: full code Case discussed w Dr Lupe Waters PGY2 <Max Andrade - Last Filed: 08/28/16 15:53> CCU Objective - Vital Signs / Intake & Output Vital Signs (Last 4 hours): Vital Signs Temp Pulse Resp BP Pulse Ox 08/28/16 15:43 147/89 08/28/16 14:00 99 H 17 100 08/28/16 13:16 107 H 21 150/83 100 08/28/16 13:00 102 H 15 100 08/28/16 12:17 96 H 24 150/86 100 08/28/16 12:00 98 F 94 H 12 100 Intake and Output (Last 8hrs): Intake & Output 08/28/16 08/28/16 08/28/16 06:59 14:59 22:59 Intake Total 345 675 Output Total 180 495 Balance 165 180 Weight 118 lb Intake: Intake, IV Amount 100 200 Right PICC 100 200 Tube Feeding 245 245 Other 230 Output: Urine 180 495 Urethral (Martinez) 180 495 Other: # Bowel Movements 1 - Medications Active Medications: Active Medications Generic Name Dose Route Start Last Admin Trade Name Freq PRN Reason Stop Dose Admin Acetaminophen 650 mg 08/14/16 23:50 08/25/16 00:45 Tylenol 650mg/20.3ml Solution Ud PO 650 mg Q6H PRN Administration temp.100.4&above;mild pain 1-3 Albuterol/Ipratropium 3 ml 08/16/16 14:00 08/28/16 14:56 Duoneb 3 Mg/0.5 Mg (3 Ml) Ud INH 3 ml RQ6 [place] Administration Digoxin 0.25 mg 08/11/16 18:00 08/27/16 17:07 Lanoxin PO 0.25 mg DAILY@1800 [place] Administration Furosemide 40 mg 08/28/16 15:38 08/28/16 15:43 Lasix IVP 40 mg Q48H [place] Administration Heparin Sodium (Porcine) 5,000 units 08/28/16 22:00 Heparin SC Q12 [facility] Imipenem/Cilastatin Sodium 250 100 mls @ 100 mls/hr 08/25/16 08:15 08/28/16 13:28 mg/ Sodium Chloride IVPB 100 mls/hr Q8 [place] Administration Fluconazole 100 mls @ 100 mls/hr 08/27/16 10:15 08/28/16 09:35 Diflucan Iv 200 Mg/100 Ml Ns IVPB 100 mls/hr DAILY [place] Administration Lisinopril 5 mg 08/17/16 10:00 08/28/16 09:39 Zestril PO 5 mg DAILY [place] Administration Lorazepam 1 mg 08/24/16 13:13 08/26/16 14:45 Ativan IVP 1 mg Q4 PRN Administration Anxiety Metoprolol Tartrate 25 mg 08/12/16 18:00 08/28/16 09:37 Lopressor PO 25 mg BID [place] Administration Morphine Sulfate 2 mg 08/22/16 03:45 08/27/16 17:29 Morphine IVP 2 mg Q4 PRN Administration Pain, severe (8-10) Pantoprazole Sodium 40 mg 08/27/16 06:00 08/28/16 05:47 Protonix Susp PO 40 mg 0600 [place] Administration Potassium Phos/Sodium Phos 1 pkt 08/28/16 10:00 08/28/16 13:28 Neutra-Phos PO 1 pkt TID [place] Administration Spironolactone 25 mg 08/28/16 11:30 08/28/16 11:52 Aldactone PO 25 mg DAILY [place] Administration - Patient Studies Lab Studies: Microbiology Studies 08/25/16 08:09 Gram Stain - Final Trachasp Sputum Culture - Final Yeast Species Lab Studies 08/28/16 08/28/16 08/28/16 Range/Units 06:27 06:27 05:14 WBC 10.4 (4.8-10.8) K/uL RBC 2.76 L (3.80-5.20) Mil/uL Hgb 9.9 L (11.0-16.0) g/dL Hct 30.0 L (34.0-47.0) % MCV 108.9 H (81.0-99.0) fL MCH 35.7 H (27.0-31.0) pg MCHC 32.8 L (33.0-37.0) g/dL RDW 15.8 H (11.5-14.5) % Plt Count 252 (130-400) K/uL MPV 10.1 (7.2-11.7) fL Neut % (Auto) 87.9 H (50.0-75.0) % Lymph % (Auto) 3.7 L (20.0-40.0) % [place] % (Auto) 5.9 (0.0-10.0) % Eos % (Auto) 2.0 (0.0-4.0) % Baso % (Auto) 0.5 (0.0-2.0) % Neut # 9.1 H (1.8-7.0) K/uL Lymph # 0.4 L (1.0-4.3) K/uL [place] # 0.6 (0.0-0.8) K/uL Eos # 0.2 (0.0-0.7) K/uL Baso # 0.0 (0.0-0.2) K/uL Neutrophils % (Manual) 88 H (50-75) % Band Neutrophils % 4 H (0-2) % Lymphocytes % (Manual) 2 L (20-40) % Monocytes % (Manual) 6 (0-10) % Platelet Estimate Normal (NORMAL) Hypochromasia (manual) Slight Poikilocytosis (manual Slight Anisocytosis (manual) Slight Puncture Site Lb pCO2 47 H (35-45) mm/Hg pO2 108 H (80-100) mm/Hg HCO3 33.0 H (21-28) mmol/L ABG pH 7.48 H (7.35-7.45) ABG Total CO2 36.4 H (22-28) mmol/L ABG O2 Saturation 99.5 H (95-98) % ABG Base Excess 10.3 H (-2.0-3.0) mmol/L ABG Hemoglobin 9.9 L (11.7-17.4) g/dL ABG Carboxyhemoglobin 1.7 H (0.5-1.5) % POC ABG HHb (Measured) 0.5 (0.0-5.0) % ABG Methemoglobin 1.0 (0.0-3.0) % Seng Test Na A-a O2 Difference 190.0 mm/Hg Respiratory Index 1.8 Hgb O2 Saturation 96.8 (95.0-98.0) % Mechanical Rate 14 FiO2 50.0 % Tidal Volume 450 PEEP 5 Sodium 136 (132-148) mmol/L Potassium 3.8 (3.6-5.2) mmol/L Chloride 99 (98-107) mmol/L Carbon Dioxide 34 H (22-30) mmol/L Anion Gap 7 L (10-20) BUN 18 H (7-17) mg/dL Creatinine 0.5 L (0.7-1.2) MG/DL Est GFR ( Amer) > 60 Est GFR (Non-Af Amer) > 60 Random Glucose 92 (65-105) mg/dL Calcium 7.7 L (8.6-10.4) mg/dl Phosphorus 1.6 L (2.5-4.5) mg/dL Magnesium 1.7 (1.6-2.3) mg/dL Total Bilirubin 0.5 (0.2-1.3) mg/dL AST 26 (14-36) U/L ALT 24 (9-52) U/L Alkaline Phosphatase 133 H (38-126) U/L Total Protein 5.3 L (6.3-8.3) g/dL Albumin 2.4 L (3.5-5.0) g/dL Globulin 2.9 (2.2-3.9) gm/dL Albumin/Globulin Ratio 0.8 L (1.0-2.1) Laboratory Results - last 24 hr 08/28/16 08/28/16 08/28/16 05:14 06:27 06:27 WBC 10.4 RBC 2.76 L Hgb 9.9 L Hct 30.0 L MCV 108.9 H MCH 35.7 H MCHC 32.8 L RDW 15.8 H Plt Count 252 MPV 10.1 Neut % (Auto) 87.9 H Lymph % (Auto) 3.7 L [place] % (Auto) 5.9 Eos % (Auto) 2.0 Baso % (Auto) 0.5 Neut # 9.1 H Lymph # 0.4 L [place] # 0.6 Eos # 0.2 Baso # 0.0 Neutrophils % (Manual) 88 H Band Neutrophils % 4 H Lymphocytes % (Manual) 2 L Monocytes % (Manual) 6 Platelet Estimate Normal Hypochromasia (manual) Slight Poikilocytosis (manual Slight Anisocytosis (manual) Slight Puncture Site Lb pCO2 47 H pO2 108 H HCO3 33.0 H ABG pH 7.48 H ABG Total CO2 36.4 H ABG O2 Saturation 99.5 H ABG Base Excess 10.3 H ABG Hemoglobin 9.9 L ABG Carboxyhemoglobin 1.7 H POC ABG HHb (Measured) 0.5 ABG Methemoglobin 1.0 Seng Test Na A-a O2 Difference 190.0 Respiratory Index 1.8 Hgb O2 Saturation 96.8 Mechanical Rate 14 FiO2 50.0 Tidal Volume 450 PEEP 5 Sodium 136 Potassium 3.8 Chloride 99 Carbon Dioxide 34 H Anion Gap 7 L BUN 18 H Creatinine 0.5 L Est GFR ( Amer) > 60 Est GFR (Non-Af Amer) > 60 Random Glucose 92 Calcium 7.7 L Phosphorus 1.6 L Magnesium 1.7 Total Bilirubin 0.5 AST 26 ALT 24 Alkaline Phosphatase 133 H Total Protein 5.3 L Albumin 2.4 L Globulin 2.9 Albumin/Globulin Ratio 0.8 L Assessment/Plan (1) Pleural effusion due to CHF (congestive heart failure) Current Visit: Yes Status: Acute Attending/Attestation - Attestation I have personally seen and examined this patient.: Yes I have fully participated in the care of the patient.: Yes I have reviewed all pertinent clinical information: Yes Notes (Text): 08/28/16 15:51 I have seen and examined the patient. Medical records, lab studies, and imaging were reviewed by me and a management plan was formulated on multidisciplinary rounds with resident Dr. Waters. I agree with their above documented assessment and plan. Patient is hemodynamically stable. Will move toward extubation. Optimizing cardiac meds, starting spironolactone and lasix every other day (patient becomes alkalotic), continue MARII-I and beta dia. Patient will have hip replacements on Thursday. Critical Care Time 35 minutes. Multi-disciplinary rounds were performed with house staff, nursing, speech therapy, respiratory therapy, pharmacy and nutrition with integrated input from the primary team/attending and other consulting services. The documented time is cumulative and includes review of patient data/exams/labs/chart review and examination of the patient on rounds and throughout the day; time is exclusive of any procedures or teaching time. 08/28/16 15:51
[2016-08-28 06:35] LABS: BASO % 0.5 % (0.0-2.0); EOS # 0.2 K/uL (0.0-0.7); HEMOGLOBIN 9.9 g/dL (11.0-16.0); LYMPH # 0.4 K/uL (1.0-4.3); LYMPH % 3.7 % (20.0-40.0); MEAN CELL VOLUME 108.9 fL (81.0-99.0); MEAN CORPUSCULAR HEMOGLOBIN 35.7 pg (27.0-31.0); MEAN CORPUSCULAR HGB CONC 32.8 g/dL (33.0-37.0); MEAN PLATELET VOLUME 10.1 fL (7.2-11.7); MONO # 0.6 K/uL (0.0-0.8); MONO % 5.9 % (0.0-10.0); NEUT # 9.1 K/uL (1.8-7.0); NEUT % 87.9 % (50.0-75.0); PLATELET COUNT 252 K/uL (130-400); RBC 2.76 Mil/uL (3.80-5.20); RED CELL DISTRIBUTION WIDTH 15.8 % (11.5-14.5); WHITE BLOOD COUNT 10.4 K/uL (4.8-10.8)
[2016-08-28 07:03] LABS: ALBUMIN 2.4 g/dL (3.5-5.0)
[2016-08-28 07:05] LABS: GFR AFRICAN-AMERICAN > 60; GFR NON-AFRICAN AMERICAN > 60
[2016-08-28 07:06] LABS: ALB/GLOB RATIO 0.8 (1.0-2.1); ALT/SGPT 24 U/L (9-52); AST/SGOT 26 U/L (14-36); BLOOD UREA NITROGEN 18 mg/dL (7-17); CALCIUM 7.7 mg/dl (8.6-10.4); MAGNESIUM 1.7 mg/dL (1.6-2.3)
--- NOTE | 2016-08-28 07:46 | CP.PCM.PN ---
Subjective - Date & Time of Evaluation Date of Evaluation: 08/28/16 Time of Evaluation: 07:41 - Subjective Subjective: Patient intubated, not sedated. Objective - Vital Signs/Intake and Output Vital Signs (last 24 hours): Temp Pulse Resp BP Pulse Ox 99.5 F 99 H 14 139/75 100 08/28/16 04:00 08/28/16 05:16 08/28/16 05:16 08/28/16 05:16 08/28/16 05:16 Intake and Output: 08/28/16 08/28/16 06:59 18:59 Intake Total 585 Output Total 300 Balance 285 - Medications Medications: Current Medications Acetaminophen (Tylenol 650mg/20.3ml Solution Ud) 650 mg PO Q6H PRN PRN Reason: temp.100.4&above;mild pain 1-3 Last Admin: 08/25/16 00:45 Dose: 650 mg Albuterol/Ipratropium (Duoneb 3 Mg/0.5 Mg (3 Ml) Ud) 3 ml INH RQ6 [facility] Last Admin: 08/28/16 01:26 Dose: 3 ml Digoxin (Lanoxin) 0.25 mg PO DAILY@1800 [facility] Last Admin: 08/27/16 17:07 Dose: 0.25 mg Heparin Sodium (Porcine) (Heparin) 5,000 units SC Q8 [facility] Last Admin: 08/28/16 05:47 Dose: 5,000 units Imipenem/Cilastatin Sodium 250 (mg/ Sodium Chloride) 100 mls @ 100 mls/hr IVPB Q8 [facility] Last Admin: 08/28/16 05:46 Dose: 100 mls/hr Fluconazole (Diflucan Iv 200 Mg/100 Ml Ns) 100 mls @ 100 mls/hr IVPB DAILY [facility] Last Admin: 08/27/16 10:33 Dose: 100 mls/hr Lisinopril (Zestril) 5 mg PO DAILY [facility] Last Admin: 08/27/16 10:46 Dose: 5 mg Lorazepam (Ativan) 1 mg IVP Q4 PRN PRN Reason: Anxiety Last Admin: 08/26/16 14:45 Dose: 1 mg Metoprolol Tartrate (Lopressor) 25 mg PO BID [facility] Last Admin: 08/27/16 17:07 Dose: 25 mg Morphine Sulfate (Morphine) 2 mg IVP Q4 PRN PRN Reason: Pain, severe (8-10) Last Admin: 08/27/16 17:29 Dose: 2 mg Pantoprazole Sodium (Protonix Susp) 40 mg PO 0600 [facility] Last Admin: 08/28/16 05:47 Dose: 40 mg - Labs Labs: 08/28/16 06:27 08/28/16 06:27 PT 10.6 SECONDS (9.7-12.2) 08/21/16 06:11 INR 1.0 08/21/16 06:11 APTT 29 SECONDS (21-34) 08/21/16 06:11 - Extremities Exam Additional comments: RLE: noted edema, +DP pulse, toes warm, venodynes and boots intact, ER, shortened Assessment and Plan (1) Garden grade IV closed subcapital fracture of proximal end of right femur Assessment & Plan: 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 Elena cont VTE proph Per Dr. Elena, will plan surgery on 09/01 if cleared high risk per cardio yeast in sputum, on diflucan per Dr. Rodriguez no implant to be placed with suspicion of active infection Status: Acute (2) Degenerative joint disease of right hip Status: Chronic (3) Closed fracture of greater trochanter of left femur Assessment & Plan: non operative Status: Acute
[2016-08-28 08:10] LABS: ANISOCYTOSIS SLIGHT; BANDS 4 % (0-2); HYPOCHROMIC SLIGHT; LYMPHOCYTE 2 % (20-40); MONOCYTE 6 % (0-10); NEUTROPHIL 88 % (50-75); PLATELET ESTIMATE NORMAL (NORMAL); POIKILOCYTOSIS SLIGHT; TOTAL CELLS COUNTED 100
[2016-08-28] MEDS: Fluconazole IV 200mg/100 ml NS 100 ML IVPB SCH (09:35)
[2016-08-28] MEDS: Potassium & Sodium Phosphate PO SCH ×3 (09:38→17:40)
--- NOTE | 2016-08-28 10:47 | RAD ---
Chest x-ray single frontal view History: Intubated. Comparison: 08/27/2016 Findings: Lines and tubes in stable position. Biapical pleural thickening with upper lobe granulomatous changes. Hyperinflation suggestive for COPD or emphysematous changes. Scattered nodular densities in both lungs. Diffuse increased interstitial lung markings. Patchy consolidative changes at the lung bases with associated left pleural effusion. Calcification at the aortic knob. Cardiomegaly. Degenerative changes in the spine and shoulders. Suggestion of several left-sided rib deformities. Impression: Hyperinflation suggestive for COPD or emphysematous changes. Scattered nodular densities in both lungs. Diffuse increased interstitial lung markings. Patchy consolidative changes at the lung bases with associated left pleural effusion.
--- NOTE | 2016-08-28 11:59 | CP.PCM.PN ---
<Chris Harrington - Last Filed: 08/28/16 11:56> Subjective - Date & Time of Evaluation Date of Evaluation: 08/28/16 Time of Evaluation: 11:56 - Subjective Subjective: Progress Note for Dr. Peacock Pt seen and examined in ICU. Pt doing well overnight with no acute events. Pt remains intubated at this time, but is alert and responding to commands. Objective - Vital Signs/Intake and Output Vital Signs (last 24 hours): Temp Pulse Resp BP Pulse Ox 98 F 91 H 15 118/50 L 100 08/28/16 08:00 08/28/16 10:00 08/28/16 10:00 08/28/16 09:37 08/28/16 10:00 Intake and Output: 08/28/16 08/28/16 06:59 18:59 Intake Total 585 335 Output Total 300 245 Balance 285 90 - Medications Medications: Current Medications Acetaminophen (Tylenol 650mg/20.3ml Solution Ud) 650 mg PO Q6H PRN PRN Reason: temp.100.4&above;mild pain 1-3 Last Admin: 08/25/16 00:45 Dose: 650 mg Albuterol/Ipratropium (Duoneb 3 Mg/0.5 Mg (3 Ml) Ud) 3 ml INH RQ6 [facility] Last Admin: 08/28/16 08:22 Dose: 3 ml Digoxin (Lanoxin) 0.25 mg PO DAILY@1800 [facility] Last Admin: 08/27/16 17:07 Dose: 0.25 mg Heparin Sodium (Porcine) (Heparin) 5,000 units SC Q12 [facility] Imipenem/Cilastatin Sodium 250 (mg/ Sodium Chloride) 100 mls @ 100 mls/hr IVPB Q8 [facility] Last Admin: 08/28/16 05:46 Dose: 100 mls/hr Fluconazole (Diflucan Iv 200 Mg/100 Ml Ns) 100 mls @ 100 mls/hr IVPB DAILY [facility] Last Admin: 08/28/16 09:35 Dose: 100 mls/hr Lisinopril (Zestril) 5 mg PO DAILY [facility] Last Admin: 08/28/16 09:39 Dose: 5 mg Lorazepam (Ativan) 1 mg IVP Q4 PRN PRN Reason: Anxiety Last Admin: 08/26/16 14:45 Dose: 1 mg Metoprolol Tartrate (Lopressor) 25 mg PO BID [facility] Last Admin: 08/28/16 09:37 Dose: 25 mg Morphine Sulfate (Morphine) 2 mg IVP Q4 PRN PRN Reason: Pain, severe (8-10) Last Admin: 08/27/16 17:29 Dose: 2 mg Pantoprazole Sodium (Protonix Susp) 40 mg PO 0600 [facility] Last Admin: 08/28/16 05:47 Dose: 40 mg Potassium Phos/Sodium Phos (Neutra-Phos) 1 pkt PO TID [facility] Last Admin: 08/28/16 09:38 Dose: 1 pkt Spironolactone (Aldactone) 25 mg PO DAILY [facility] Last Admin: 08/28/16 11:52 Dose: 25 mg - Labs Labs: 08/28/16 06:27 08/28/16 06:27 PT 10.6 SECONDS (9.7-12.2) 08/21/16 06:11 INR 1.0 08/21/16 06:11 APTT 29 SECONDS (21-34) 08/21/16 06:11 - Constitutional Appears: Toxic - Head Exam Head Exam: NORMAL INSPECTION - Respiratory Exam Respiratory Exam: Decreased Breath Sounds, NORMAL BREATHING PATTERN - Cardiovascular Exam Cardiovascular Exam: Irregular Rhythm, +S1, +S2 - GI/Abdominal Exam GI & Abdominal Exam: Soft, Normal Bowel Sounds. absent: Tenderness - Extremities Exam Extremities Exam: absent: Calf Tenderness, Pedal Edema - Neurological Exam Neurological Exam: Alert, Awake, Oriented x3 - Skin Skin Exam: Intact, Normal Color, Warm Assessment and Plan (1) CHF exacerbation Assessment & Plan: Pt remains high risk for surgery Very poor prognosis No OR date scheduled at this time Continue current medical management Status: Resolved <Max Peacock - Last Filed: 09/17/16 07:36> Objective - Vital Signs/Intake and Output Vital Signs (last 24 hours): Temp Pulse Resp BP Pulse Ox 97 F L 48 L 20 80/0 L 94 L 09/17/16 04:00 09/17/16 07:00 09/17/16 07:11 09/17/16 07:00 09/17/16 05:00 Intake and Output: 09/17/16 09/17/16 06:59 18:59 Intake Total 1376.3 67.5 Output Total 0 0 Balance 1376.3 67.5 - Medications Medications: Current Medications Acetaminophen (Tylenol 650mg/20.3ml Solution Ud) 650 mg PO Q6H PRN PRN Reason: temp.100.4&above;mild pain 1-3 Last Admin: 08/25/16 00:45 Dose: 650 mg Albuterol/Ipratropium (Duoneb 3 Mg/0.5 Mg (3 Ml) Ud) 3 ml INH RQ6 [facility] Last Admin: 09/17/16 01:43 Dose: 3 ml Digoxin (Lanoxin) 0.25 mg IVP DAILY@1800 [facility] Last Admin: 09/16/16 17:07 Dose: 0.25 mg Famotidine (Pepcid) 20 mg IVP DAILY [facility] Last Admin: 09/16/16 10:32 Dose: 20 mg Heparin Sodium (Porcine) (Heparin) 5,000 units SC Q12 [facility] Last Admin: 09/16/16 21:31 Dose: 5,000 units Cefepime HCl (Maxipime Iv 1 Gm Premix) 1 gm in 50 mls @ 100 mls/hr IVPB Q12H [facility] Last Admin: 09/16/16 21:58 Dose: 100 mls/hr Linezolid (Zyvox 600mg/300ml D5w) 600 mg in 300 mls @ 200 mls/hr IVPB Q12 [facility] Last Admin: 09/16/16 21:47 Dose: 200 mls/hr Micafungin Sodium 100 mg/ (Sodium Chloride) 100 mls @ 100 mls/hr IV Q24H [facility] Last Admin: 09/16/16 22:35 Dose: 100 mls/hr Norepinephrine Bitartrate 4 mg (/ Sodium Chloride) 254 mls @ 15.24 mls/hr IV .[id number] PRN; Protocol; 4 MCG/MIN PRN Reason: TITRATE PER MD ORDER Last Titration: 09/16/16 21:00 Dose: 0 mcg/min, 0 mls/hr Phenylephrine HCl 30 mg/ (Dextrose) 253 mls @ 10.12 mls/hr IV .Q24H PRN; Protocol; 20 MCG/MIN PRN Reason: TITRATE PER MD ORDER Last Titration: 09/16/16 18:38 Dose: 0 mcg/min, 0 mls/hr Dopamine HCl/Dextrose (Dopamine 400mg/250ml D5w) 400 mg in 250 mls @ 3.75 mls/ hr IV .Q24H PRN; Protocol; 2 MCG/KG/MIN PRN Reason: TITRATE PER MD ORDER Last Titration: 09/16/16 18:37 Dose: 0 mcg/kg/min, 0 mls/hr Dextrose (Dextrose 10% In Water) 1,000 mls @ 30 mls/hr IV .Q24H [facility] Last Admin: 09/16/16 11:40 Dose: 30 mls/hr Lisinopril (Zestril) 5 mg PO DAILY [facility] Last Admin: 09/16/16 10:22 Dose: Not Given Lorazepam (Ativan) 1 mg IVP Q3H PRN PRN Reason: Agitation Last Admin: 09/14/16 22:10 Dose: 1 mg Metoprolol Tartrate (Lopressor) 25 mg PO BID [facility] Last Admin: 09/12/16 09:29 Dose: 25 mg Morphine Sulfate (Morphine) 1 mg IV Q4 PRN PRN Reason: Pain, moderate (4-7) Last Admin: 09/16/16 18:31 Dose: 1 mg - Labs Labs: 09/17/16 06:20 09/17/16 06:20 PT 13.5 SECONDS (9.7-12.2) H 09/14/16 11:40 INR 1.2 09/14/16 11:40 APTT 37 SECONDS (21-34) H 09/14/16 11:40 Assessment and Plan (1) CHF exacerbation Status: Resolved Attending/Attestation - Attestation I have personally seen and examined this patient.: Yes I have fully participated in the care of the patient.: Yes I have reviewed all pertinent clinical information, including history, physical exam and plan: Yes Notes (Text): 09/17/16 07:35 Pt intubated continue to follow tele no events. Pt alert anticipate extubation soon
--- NOTE | 2016-08-28 16:40 | CP.PCM.CON ---
History of Present Illness - History of Present Illness History of Present Illness: 76 y/o F with PMH of HTN, CHF with EF of 26%, and emphysema initially presented on 08/07/16 s/p fall at home. She was subsequently found to have a right hip and left femur fracturE AND was also found to be septic and placed on appropriate abx. Pt also has b/l pleural effusions along with compressive consolidations. Surgery for right hip arthroplasty was planned for when patient is medically optimized. However pt remains intubated in ICU requiring vent support ID consulted for antibiotic management Thus far all cultures are negative PMH: HTN, CHF ( cardiomyopathy) , Emphysema (severe COPD) Surgical Hx: Appendectomy Social Hx: Denies alcohol or illicit drug use Allergies: Eggs Medication: Cardizem, oxycodone, ambien Review of Systems - Review of Systems Systems not reviewed;Unavailable: Intubated - Constitutional Constitutional: As Per HPI - EENT Eyes: absent: As Per HPI, Blind Spots, Blurred Vision, Change in Vision, Decreased Night Vision, Diplopia, Discharge, Dry Eye, Exophthalmos, Floaters, Irritation, Itchy Eyes, Loss of Peripheral Vision, Pain, Photophobia, Requires Corrective Lenses, Sees Flashes, Spots in Vision, Tunnel Vision, Other Visual Disturbances, Loss of Vision, Other Ears: absent: As Per HPI, Decreased Hearing, Ear Discharge, Ear Pain, Tinnitus, Abnormal Hearing, Disequilibrium, Dizziness, Other Nose/Mouth/Throat: absent: As Per HPI, Epistaxis, Nasal Congestion, Nasal Discharge, Nasal Obstruction, Nasal Trauma, Nose Pain, Post Nasal Drip, Sinus Pain, Sinus Pressure, Bleeding Gums, Change in Voice, Dental Pain, Dry Mouth, Dysphagia, Halitosis, Hoarsness, Lip Swelling, Mouth Lesions, Mouth Pain, Odynophagia, Sore Throat, Throat Swelling, Tongue Swelling, Facial Pain, Neck Pain, Neck Mass, Other - Breasts Breasts: absent: As Per HPI, Change in Shape, Mass, Pain, Nipple Discharge, Nipple Inversion, Skin Changes, Swelling, Other - Cardiovascular Cardiovascular: As Per HPI - Respiratory Respiratory: As Per HPI - Gastrointestinal Gastrointestinal: absent: As Per HPI, Abdominal Pain, Belching, Bloating, Change in Bowel Habits, Change in Stool Character, Coffee Ground Emesis, Constipation, Cramping, Diarrhea, Dyspepsia, Dysphagia, Early Satiety, Excessive Flatus, Fecal Incontinence, Heartburn, Hematemesis, Hematochezia, Loose Stools, Melena, Nausea, Odynophagia, Temesmus, Vomiting, Other - Genitourinary Genitourinary: absent: As Per HPI, Change in Urinary Stream, Difficulty Urinating, Dysuria, Flank Pain, Hematuria, Pyuria, Nocturia, Urinary Incontinence, Urinary Frequency, Urinary Hesitance, Urinary Urgency, Voiding Freq/Small Amts, Freq UTI, Hx Renal/Bladder Calculi, Hx /Renal Surgery, Bladder Distension, Other - Reproductive: Female Reproductive:Female: absent: As Per HPI, Amenorrhea, Amenorrhea/ Control, Currently Menstual, Cycle <21 Days, Cycle >35 Days, Cycle Variable, Menses 1-7 Days, Menses >/= 8 Days, Menses Variable, Cycle > 4 Weeks Between, No Menses for 6 Months, Heavy Menses, Light Menses, Normal Menses, Spotting Between Cycles , S/P Hysterectomy, Menopausal, Post Menopausal, Premenarche, Abnormal Vaginal Bleeding, Dysmenorrhea, Dyspareunia, Genital Lesions, Genital Pruritis, Pelvic Pain, Prolapse Symptoms, Sexual Dysfunction, Vaginal Discharge, Vaginal Dryness , Vaginal Odor, Vaginal Pruritis, Other - Menstruation Menstruation: absent: As Per HPI, Amenorrhea, Amenorrhea/ Control, Currently Menstual, Cycle <21 Days, Cycle >35 Days, Cycle Variable, Menses 1-7 Days, Menses >/= 8 Days, Menses Variable, Cycle > 4 Weeks Between, No Menses for 6 Months, Heavy Menses, Light Menses, Normal Menses, Spotting Between Cycles , S/P Hysterectomy, Menopausal, Post Menopausal, Premenarche, Abnormal Vaginal Bleeding, Dysmenorrhea, Other - Musculoskeletal Musculoskeletal: As Per HPI - Integumentary Integumentary: absent: As Per HPI, Acne, Alopecia, Bleeding Lesions, Change in Hair, Change in Nails, Change in Pigmentation, Changing Lesions, Dry Skin, Erythema, Furuncle, Hirsutism, Lesions, New Lesions, Non-Healing Lesions, Photosensitivity, Pruritus, Rash, Skin Pain, Skin Ulcer, Sores, Striae, Swelling , Unusual Bruising, Wounds, Jaundice, Other - Neurological Neurological: absent: As Per HPI, Abnormal Gait, Abnormal Hearing, Abnormal Movements, Abnormal Speech, Behavioral Changes, Burning Sensations, Confusion, Convulsions, Disequilibrium, Dizziness, Numbness, Focal Weakness, Frequent Falls , Headaches, Lack of Coordination, Loss of Vision, Memory Loss, Paresthesias, Radicular Pain, Restless Legs, Sensory Deficit, Syncope, Tingling, Tremor, Vertigo, Weakness, Other Visual Disturbances, Other - Psychiatric Psychiatric: absent: As Per HPI, Abnormal Sleep Pattern, Anhedonia, Anxiety, Auditory Hallucinations, Behavioral Changes, Change in Appetite, Change in Libido, Confusion, Depression, Difficulty Concentrating, Hallucinations, Homicidal Ideation, Hopelessness, Irritability, Memory Loss, Mood Swings, Panic Attacks, Paranoia, Suicidal Ideation, Visual Hallucinations, Tactile Hallucinations, Other - Endocrine Endocrine: absent: As Per HPI, Change in Body Appearance, Change in Libido, Cold Intolorance, Deepening of Voice, Excessive Sweating, Fatigue, Flushing, Heat Intolorance, Increase in Ring/Shoe/Hat Size, Palpitations, Polydipsia, Polyphagia, Polyuria, Other - Hematologic/Lymphatic Hematologic: absent: As Per HPI, Easy Bleeding, Easy Bruising, Lymphadenopathy, Other Past Patient History - Infectious Disease Hx of Infectious Diseases: None - Tetanus Immunizations Tetanus Immunization: Unknown - Past Medical History & Family History Past Medical History?: Yes Past Family History: Reviewed and not pertinent - Past Social History Smoking Status: Heavy Smoker > 10 Cigarettes Daily Alcohol: None Drugs: Denies Home Situation {Lives}: With Family Domestic Violence: Negative - CARDIAC Hx Congestive Heart Failure: Yes Hx Hypertension: Yes - PULMONARY Hx Bronchitis: Yes Hx Emphysema: Yes - NEUROLOGICAL Hx Neurological Disorder: No - HEENT Hx HEENT Problems: Yes Hx Cataracts: Yes - RENAL Hx Chronic Kidney Disease: No - ENDOCRINE/METABOLIC Hx Endocrine Disorders: No - HEMATOLOGICAL/ONCOLOGICAL Hx Blood Disorders: No - INTEGUMENTARY Hx Dermatological Problems: No - MUSCULOSKELETAL/RHEUMATOLOGICAL Hx Arthritis: Yes - GASTROINTESTINAL Hx Gastrointestinal Disorders: No - GENITOURINARY/GYNECOLOGICAL Hx Genitourinary Disorders: No - PSYCHIATRIC Hx Anxiety: Yes Hx Substance Use: No - SURGICAL HISTORY Hx Appendectomy: Yes Hx Eye Surgery: Yes - ANESTHESIA Hx Anesthesia: Yes Hx Anesthesia Reactions: Yes ("cough") Hx Malignant Hyperthermia: No Has any member of the family had a problem w/ anesthesia?: No Meds Allergies/Adverse Reactions: Allergies Allergy/AdvReac Type Severity Reaction Status Date / Time EGG Allergy DIZZINESS Verified 08/07/16 13:37 - Medications Medications: Current Medications Acetaminophen (Tylenol 650mg/20.3ml Solution Ud) 650 mg PO Q6H PRN PRN Reason: temp.100.4&above;mild pain 1-3 Last Admin: 08/25/16 00:45 Dose: 650 mg Albuterol/Ipratropium (Duoneb 3 Mg/0.5 Mg (3 Ml) Ud) 3 ml INH RQ6 [facility] Last Admin: 08/28/16 14:56 Dose: 3 ml Digoxin (Lanoxin) 0.25 mg PO DAILY@1800 [facility] Last Admin: 08/27/16 17:07 Dose: 0.25 mg Furosemide (Lasix) 40 mg IVP Q48H [facility] Last Admin: 08/28/16 15:43 Dose: 40 mg Heparin Sodium (Porcine) (Heparin) 5,000 units SC Q12 [facility] Imipenem/Cilastatin Sodium 250 (mg/ Sodium Chloride) 100 mls @ 100 mls/hr IVPB Q8 [facility] Last Admin: 08/28/16 13:28 Dose: 100 mls/hr Fluconazole (Diflucan Iv 200 Mg/100 Ml Ns) 100 mls @ 100 mls/hr IVPB DAILY [facility] Last Admin: 08/28/16 09:35 Dose: 100 mls/hr Lisinopril (Zestril) 5 mg PO DAILY [facility] Last Admin: 08/28/16 09:39 Dose: 5 mg Lorazepam (Ativan) 1 mg IVP Q4 PRN PRN Reason: Anxiety Last Admin: 08/26/16 14:45 Dose: 1 mg Metoprolol Tartrate (Lopressor) 25 mg PO BID [facility] Last Admin: 08/28/16 09:37 Dose: 25 mg Morphine Sulfate (Morphine) 2 mg IVP Q4 PRN PRN Reason: Pain, severe (8-10) Last Admin: 08/27/16 17:29 Dose: 2 mg Pantoprazole Sodium (Protonix Susp) 40 mg PO 0600 [facility] Last Admin: 08/28/16 05:47 Dose: 40 mg Potassium Phos/Sodium Phos (Neutra-Phos) 1 pkt PO TID [facility] Last Admin: 08/28/16 13:28 Dose: 1 pkt Spironolactone (Aldactone) 25 mg PO DAILY [facility] Last Admin: 08/28/16 11:52 Dose: 25 mg Physical Exam - Constitutional Appears: Non-toxic, Cachectic, Chronically Ill - Head Exam Head Exam: ATRAUMATIC, NORMAL INSPECTION, NORMOCEPHALIC - Eye Exam Eye Exam: EOMI, PERRL. absent: Scleral icterus - ENT Exam ENT Exam: Mucous Membranes Dry, Normal External Ear Exam - Neck Exam Neck exam: Negative for: Lymphadenopathy, Thyromegaly - Respiratory Exam Respiratory Exam: Decreased Breath Sounds, Rhonchi - Cardiovascular Exam Cardiovascular Exam: Tachycardia, REGULAR RHYTHM, +S1, +S2 - GI/Abdominal Exam GI & Abdominal Exam: Diminished Bowel Sounds, Distended, Soft. absent: Guarding , Rebound, Rigid, Tenderness - Rectal Exam Rectal Exam: Deferred - Exam Exam: NORMAL INSPECTION - Extremities Exam Extremities exam: Positive for: pedal pulses present. Negative for: calf tenderness, pedal edema, tenderness - Back Exam Back exam: absent: CVA tenderness (L), CVA tenderness (R) - Neurological Exam Neurological exam: Alert, CN II-XII Intact, Oriented x3, Reflexes Normal - Psychiatric Exam Psychiatric exam: Depressed - Skin Skin Exam: Dry Results - Vital Signs Recent Vital Signs: Last Vital Signs Temp 98.9 F 08/28/16 16:00 Pulse 117 H 08/28/16 16:00 Resp 24 08/28/16 16:00 BP 147/89 08/28/16 15:43 Pulse Ox 99 08/28/16 16:00 - Labs Result Diagrams: 08/28/16 06:27 08/28/16 06:27 Labs: Laboratory Results - last 24 hr 08/28/16 08/28/16 08/28/16 05:14 06:27 06:27 WBC 10.4 RBC 2.76 L Hgb 9.9 L Hct 30.0 L MCV 108.9 H MCH 35.7 H MCHC 32.8 L RDW 15.8 H Plt Count 252 MPV 10.1 Neut % (Auto) 87.9 H Lymph % (Auto) 3.7 L [place] % (Auto) 5.9 Eos % (Auto) 2.0 Baso % (Auto) 0.5 Neut # 9.1 H Lymph # 0.4 L [place] # 0.6 Eos # 0.2 Baso # 0.0 Neutrophils % (Manual) 88 H Band Neutrophils % 4 H Lymphocytes % (Manual) 2 L Monocytes % (Manual) 6 Platelet Estimate Normal Hypochromasia (manual) Slight Poikilocytosis (manual Slight Anisocytosis (manual) Slight Puncture Site Lb pCO2 47 H pO2 108 H HCO3 33.0 H ABG pH 7.48 H ABG Total CO2 36.4 H ABG O2 Saturation 99.5 H ABG Base Excess 10.3 H ABG Hemoglobin 9.9 L ABG Carboxyhemoglobin 1.7 H POC ABG HHb (Measured) 0.5 ABG Methemoglobin 1.0 Seng Test Na A-a O2 Difference 190.0 Respiratory Index 1.8 Hgb O2 Saturation 96.8 Mechanical Rate 14 FiO2 50.0 Tidal Volume 450 PEEP 5 Sodium 136 Potassium 3.8 Chloride 99 Carbon Dioxide 34 H Anion Gap 7 L BUN 18 H Creatinine 0.5 L Est GFR ( Amer) > 60 Est GFR (Non-Af Amer) > 60 Random Glucose 92 Calcium 7.7 L Phosphorus 1.6 L Magnesium 1.7 Total Bilirubin 0.5 AST 26 ALT 24 Alkaline Phosphatase 133 H Total Protein 5.3 L Albumin 2.4 L Globulin 2.9 Albumin/Globulin Ratio 0.8 L Assessment & Plan (1) Acute respiratory failure Status: Acute (2) Closed fracture of greater trochanter of left femur Status: Acute (3) Contusion of head Status: Acute (4) Fall Status: Acute (5) Garden grade IV closed subcapital fracture of proximal end of right femur Status: Acute (6) Pelvic fracture Status: Acute (7) Pleural effusion due to CHF (congestive heart failure) Status: Acute (8) Right middle lobe pneumonia Status: Acute (9) CHF (NYHA class III, ACC/AHA stage C) Status: Chronic (10) Degenerative joint disease of right hip Status: Chronic (11) Multifocal atrial tachycardia Status: Chronic (12) Arrhythmia Status: Resolved (13) CHF exacerbation Status: Resolved (14) Dehydration Status: Resolved (15) Pleural effusion, right Status: Resolved (16) Sepsis Status: Resolved - Assessment and Plan (Free Text) Assessment: s/p resp failure and sepsis due to pneumonia, decompensated chf and severe COPD may require trach and PEG all cultures thus far negative except fungus in urine/ sputum consider d/c Primaxin
[2016-08-28] MEDS: Digoxin 250 mcg (0.25 mg) Tab PO SCH (17:40)
[2016-08-29] MEDS: Albuterol-Ipratrop 3 mg / 0.5 (3 ml) UD INH SCH ×4 (01:40→19:40)
[2016-08-29 05:31] LABS: ARTERIAL BLOOD GAS HEMOGLOBIN 14.2 g/dL (11.7-17.4); ARTERIAL BLOOD GAS O2 SAT 98.4 % (95-98); ARTERIAL BLOOD GAS PCO2 44 mm/Hg (35-45); ARTERIAL BLOOD GAS PH 7.55 (7.35-7.45); ARTERIAL BLOOD GAS PO2 79 mm/Hg (80-100); ARTERIAL BLOOD GAS TCO2 39.9 mmol/L (22-28)
[2016-08-29] MEDS: Pantoprazole 40 mg Susp UD PO SCH (06:09)
[2016-08-29] MEDS: Imipenem/Cilastatin 250 MG in Sodium Chloride 100 ML IVPB SCH ×3 (06:10→22:00)
[2016-08-29 06:25] LABS: BASO # 0.1 K/uL (0.0-0.2); BASO % 0.8 % (0.0-2.0); EOS # 0.1 K/uL (0.0-0.7); EOS % 1.6 % (0.0-4.0); HEMOGLOBIN 9.1 g/dL (11.0-16.0); LYMPH # 0.5 K/uL (1.0-4.3); LYMPH % 5.8 % (20.0-40.0); MEAN CELL VOLUME 107.8 fL (81.0-99.0); MEAN CORPUSCULAR HEMOGLOBIN 35.5 pg (27.0-31.0); MEAN CORPUSCULAR HGB CONC 32.9 g/dL (33.0-37.0); MEAN PLATELET VOLUME 9.5 fL (7.2-11.7); MONO # 0.6 K/uL (0.0-0.8); NEUT # 6.6 K/uL (1.8-7.0); NEUT % 83.8 % (50.0-75.0); NRBC % 0.1 % (0.0-2.0); PLATELET COUNT 207 K/uL (130-400); RBC 2.58 Mil/uL (3.80-5.20); RED CELL DISTRIBUTION WIDTH 15.9 % (11.5-14.5); WHITE BLOOD COUNT 7.9 K/uL (4.8-10.8)
[2016-08-29 06:48] LABS: ALBUMIN 2.1 g/dL (3.5-5.0)
[2016-08-29 06:51] LABS: GFR AFRICAN-AMERICAN > 60; GFR NON-AFRICAN AMERICAN > 60
[2016-08-29 06:52] LABS: ALT/SGPT 30 U/L (9-52); AST/SGOT 26 U/L (14-36); BLOOD UREA NITROGEN 17 mg/dL (7-17); CALCIUM 7.3 mg/dl (8.6-10.4); MAGNESIUM 1.6 mg/dL (1.6-2.3)
[2016-08-29 07:04] LABS: ALB/GLOB RATIO 0.9 (1.0-2.1)
[2016-08-29 08:31] LABS: BANDS 4 % (0-2); EOSINOPHIL 1 % (0-4); LYMPHOCYTE 4 % (20-40); MONOCYTE 9 % (0-10); NEUTROPHIL 82 % (50-75); TOTAL CELLS COUNTED 100
[2016-08-29 08:32] LABS: ANISOCYTOSIS SLIGHT; PLATELET ESTIMATE NORMAL (NORMAL); POIKILOCYTOSIS SLIGHT
--- NOTE | 2016-08-29 09:10 | CP.PCM.PN ---
Subjective - Date & Time of Evaluation Date of Evaluation: 08/29/16 Time of Evaluation: 09:08 - Subjective Subjective: Patient more awake today. nods in response to questions. Objective - Vital Signs/Intake and Output Vital Signs (last 24 hours): Temp Pulse Resp BP Pulse Ox 98.7 F 64 14 107/53 L 100 08/29/16 04:00 08/29/16 07:00 08/29/16 07:00 08/29/16 06:16 08/29/16 07:00 Intake and Output: 08/29/16 08/29/16 06:59 18:59 Intake Total 720 35 Output Total 2080 100 Balance -1360 -65 - Medications Medications: Current Medications Acetaminophen (Tylenol 650mg/20.3ml Solution Ud) 650 mg PO Q6H PRN PRN Reason: temp.100.4&above;mild pain 1-3 Last Admin: 08/25/16 00:45 Dose: 650 mg Albuterol/Ipratropium (Duoneb 3 Mg/0.5 Mg (3 Ml) Ud) 3 ml INH RQ6 [facility] Last Admin: 08/29/16 08:34 Dose: 3 ml Digoxin (Lanoxin) 0.25 mg PO DAILY@1800 [facility] Last Admin: 08/28/16 17:40 Dose: 0.25 mg Furosemide (Lasix) 40 mg IVP Q48H [facility] Last Admin: 08/28/16 15:43 Dose: 40 mg Heparin Sodium (Porcine) (Heparin) 5,000 units SC Q12 [facility] Last Admin: 08/28/16 22:01 Dose: 5,000 units Imipenem/Cilastatin Sodium 250 (mg/ Sodium Chloride) 100 mls @ 100 mls/hr IVPB Q8 [facility] Last Admin: 08/29/16 06:10 Dose: 100 mls/hr Fluconazole (Diflucan Iv 200 Mg/100 Ml Ns) 100 mls @ 100 mls/hr IVPB DAILY [facility] Last Admin: 08/28/16 09:35 Dose: 100 mls/hr Lisinopril (Zestril) 5 mg PO DAILY [facility] Last Admin: 08/28/16 09:39 Dose: 5 mg Lorazepam (Ativan) 1 mg IVP Q4 PRN PRN Reason: Anxiety Last Admin: 08/26/16 14:45 Dose: 1 mg Metoprolol Tartrate (Lopressor) 25 mg PO BID [facility] Last Admin: 08/28/16 17:40 Dose: 25 mg Morphine Sulfate (Morphine) 2 mg IVP Q4 PRN PRN Reason: Pain, severe (8-10) Last Admin: 08/28/16 16:51 Dose: 2 mg Pantoprazole Sodium (Protonix Susp) 40 mg PO 0600 [facility] Last Admin: 08/29/16 06:09 Dose: 40 mg Potassium Phos/Sodium Phos (Neutra-Phos) 1 pkt PO TID [facility] Last Admin: 08/28/16 17:40 Dose: 1 pkt Spironolactone (Aldactone) 25 mg PO DAILY [facility] Last Admin: 08/28/16 11:52 Dose: 25 mg - Labs Labs: 08/29/16 06:20 08/29/16 06:22 PT 10.6 SECONDS (9.7-12.2) 08/21/16 06:11 INR 1.0 08/21/16 06:11 APTT 29 SECONDS (21-34) 08/21/16 06:11 - Extremities Exam Additional comments: RLE: +ROM ankle/toes, +DP/PT pulses, BLE edema improving, calves soft NT neg homans venodynes and heel boots intact Assessment and Plan (1) Garden grade IV closed subcapital fracture of proximal end of right femur Assessment & Plan: Will plan for OR 09/[address] Elena repeat urinalysis, last urine had yeast Status: Acute (2) Degenerative joint disease of right hip Status: Chronic (3) Closed fracture of greater trochanter of left femur Assessment & Plan: non operative repeat Status: Acute
--- NOTE | 2016-08-29 10:14 | RAD ---
Chest x-ray single frontal view History: Intubated. Comparison: 08/28/2016 Findings: Lines and tubes in stable position. Biapical pleural thickening with upper lobe granulomatous changes. Patchy consolidative markings at both lung bases with associated small left pleural effusion. Diffuse increased interstitial lung markings bilaterally. Scattered nodularity throughout both lungs. Right hilar prominence. Linear lucency along the lateral aspect of the right hemithorax may represent Mach artifact as there appear to be markings past this level. Suggestion left lateral rib deformities. Degenerative changes spine and shoulders. Impression: No significant interval change.
[2016-08-29] MEDS: Fluconazole IV 200mg/100 ml NS 100 ML IVPB SCH (10:20)
[2016-08-29] MEDS: Potassium & Sodium Phosphate PO SCH ×2 (10:22→14:38)
--- NOTE | 2016-08-29 11:53 | CP.PCM.PN ---
<Chris Harrington - Last Filed: 08/29/16 16:03> Subjective - Date & Time of Evaluation Date of Evaluation: 08/29/16 Time of Evaluation: 11:48 - Subjective Subjective: Progress Note for Dr. Peacock Pt seen examined at bedside. Pt with no acute events overnight as per nursing. Pt remains intubated at this time, but is able to respond to commands. Pt denies CP, N/V/D, generalized pain, headache. Objective - Vital Signs/Intake and Output Vital Signs (last 24 hours): Temp Pulse Resp BP Pulse Ox 98.1 F 75 14 138/76 100 08/29/16 08:00 08/29/16 08:02 08/29/16 08:02 08/29/16 10:19 08/29/16 08:02 Intake and Output: 08/29/16 08/29/16 06:59 18:59 Intake Total 720 35 Output Total 2080 100 Balance -1360 -65 - Medications Medications: Current Medications Acetaminophen (Tylenol 650mg/20.3ml Solution Ud) 650 mg PO Q6H PRN PRN Reason: temp.100.4&above;mild pain 1-3 Last Admin: 08/25/16 00:45 Dose: 650 mg Acetazolamide (Diamox 250 Mg Tab) 250 mg PO BID [facility] Last Admin: 08/29/16 10:54 Dose: 250 mg Albuterol/Ipratropium (Duoneb 3 Mg/0.5 Mg (3 Ml) Ud) 3 ml INH RQ6 [facility] Last Admin: 08/29/16 08:34 Dose: 3 ml Digoxin (Lanoxin) 0.25 mg PO DAILY@1800 [facility] Last Admin: 08/28/16 17:40 Dose: 0.25 mg Furosemide (Lasix) 40 mg IVP Q48H [facility] Last Admin: 08/28/16 15:43 Dose: 40 mg Heparin Sodium (Porcine) (Heparin) 5,000 units SC Q12 [facility] Last Admin: 08/29/16 10:20 Dose: 5,000 units Imipenem/Cilastatin Sodium 250 (mg/ Sodium Chloride) 100 mls @ 100 mls/hr IVPB Q8 [facility] Last Admin: 08/29/16 06:10 Dose: 100 mls/hr Fluconazole (Diflucan Iv 200 Mg/100 Ml Ns) 100 mls @ 100 mls/hr IVPB DAILY [facility] Last Admin: 08/29/16 10:20 Dose: 100 mls/hr Lisinopril (Zestril) 5 mg PO DAILY [facility] Last Admin: 08/28/16 09:39 Dose: 5 mg Lorazepam (Ativan) 1 mg IVP Q4 PRN PRN Reason: Anxiety Last Admin: 08/26/16 14:45 Dose: 1 mg Metoprolol Tartrate (Lopressor) 25 mg PO BID [facility] Last Admin: 08/29/16 10:19 Dose: 25 mg Morphine Sulfate (Morphine) 2 mg IVP Q4 PRN PRN Reason: Pain, severe (8-10) Last Admin: 08/28/16 16:51 Dose: 2 mg Pantoprazole Sodium (Protonix Susp) 40 mg PO 06 [facility] Last Admin: 08/29/16 06:09 Dose: 40 mg Potassium Phos/Sodium Phos (Neutra-Phos) 1 pkt PO TID [facility] Last Admin: 08/29/16 10:22 Dose: 1 pkt Spironolactone (Aldactone) 25 mg PO DAILY [facility] Last Admin: 08/29/16 10:19 Dose: 25 mg - Labs Labs: 08/29/16 06:20 08/29/16 06:22 PT 10.6 SECONDS (9.7-12.2) 08/21/16 06:11 INR 1.0 08/21/16 06:11 APTT 29 SECONDS (21-34) 08/21/16 06:11 - Constitutional Appears: Toxic, No Acute Distress - Head Exam Head Exam: ATRAUMATIC, NORMAL INSPECTION, NORMOCEPHALIC - Respiratory Exam Respiratory Exam: Clear to Ausculation Bilateral, NORMAL BREATHING PATTERN. absent: Rales - Cardiovascular Exam Cardiovascular Exam: Irregular Rhythm, +S1, +S2 - GI/Abdominal Exam GI & Abdominal Exam: Soft, Normal Bowel Sounds. absent: Tenderness - Extremities Exam Extremities Exam: Normal Inspection. absent: Calf Tenderness, Pedal Edema - Neurological Exam Neurological Exam: Alert, Awake Additional comments: Intubated - Skin Skin Exam: Intact, Normal Color, Warm Assessment and Plan (1) CHF exacerbation Assessment & Plan: CHF exacerbation resolved Pt scheduled for OR on Thursday Pt is high risk for surgery, very poor prognosis Benefits outweigh risks for surgery at this time Status: Resolved <Max Peacock - Last Filed: 09/08/16 07:30> Objective - Vital Signs/Intake and Output Vital Signs (last 24 hours): Temp Pulse Resp BP Pulse Ox 98.6 F 58 L 12 99/54 L 100 09/08/16 04:00 09/08/16 07:00 09/08/16 07:00 09/08/16 06:58 09/08/16 06:00 Intake and Output: 09/08/16 09/08/16 06:59 18:59 Intake Total 670 35 Output Total 455 40 Balance 215 -5 - Medications Medications: Current Medications Acetaminophen (Tylenol 650mg/20.3ml Solution Ud) 650 mg PO Q6H PRN PRN Reason: temp.100.4&above;mild pain 1-3 Last Admin: 08/25/16 00:45 Dose: 650 mg Albuterol/Ipratropium (Duoneb 3 Mg/0.5 Mg (3 Ml) Ud) 3 ml INH RQ6 [facility] Last Admin: 09/08/16 02:30 Dose: 3 ml Digoxin (Lanoxin) 0.25 mg PO DAILY@1800 [facility] Last Admin: 09/07/16 17:19 Dose: 0.25 mg Famotidine (Pepcid) 20 mg PO DAILY [facility] Last Admin: 09/07/16 09:53 Dose: 20 mg Furosemide (Lasix) 20 mg PO DAILY [facility] Last Admin: 09/07/16 09:49 Dose: 20 mg Heparin Sodium (Porcine) (Heparin) 5,000 units SC Q12 [facility] Last Admin: 09/07/16 21:59 Dose: 5,000 units Tigecycline 50 mg/ Sodium (Chloride) 100 mls @ 100 mls/hr IVPB Q12H [facility] Last Admin: 09/08/16 00:00 Dose: 100 mls/hr Fluconazole (Diflucan Iv 200 Mg/100 Ml Ns) 100 mls @ 100 mls/hr IVPB DAILY [facility] Last Admin: 09/07/16 09:46 Dose: 100 mls/hr Lisinopril (Zestril) 5 mg PO DAILY [facility] Last Admin: 09/07/16 09:50 Dose: 5 mg Metoprolol Tartrate (Lopressor) 25 mg PO BID [facility] Last Admin: 09/07/16 17:19 Dose: 25 mg Morphine Sulfate (Morphine) 2 mg IVP Q6 PRN PRN Reason: Pain, moderate (4-7) - Labs Labs: 09/08/16 06:28 09/08/16 06:28 PT 10.6 SECONDS (9.7-12.2) 08/21/16 06:11 INR 1.0 08/21/16 06:11 APTT 29 SECONDS (21-34) 08/21/16 06:11 Assessment and Plan (1) CHF exacerbation Status: Resolved Attending/Attestation - Attestation I have personally seen and examined this patient.: Yes I have fully participated in the care of the patient.: Yes I have reviewed all pertinent clinical information, including history, physical exam and plan: Yes Notes (Text): 09/08/16 07:29 Ortho evaluating OR condition guarded cardio following as well
[2016-08-29 11:58] LABS: URINE BILIRUBIN NEGATIVE (NEGATIVE); URINE CLARITY Hazy (Clear); URINE COLOR YELLOW (YELLOW); URINE GLUCOSE (UA) NEGATIVE (Normal)
[2016-08-29 12:00] LABS: URINE BLOOD MODERATE (NEGATIVE)
[2016-08-29 12:02] LABS: URINE LEUKOCYTE ESTERASE MODERATE Leu/uL (Negative); URINE NITRATE NEGATIVE (NEGATIVE); URINE PROTEIN 2+ mg/dL (NEGATIVE)
[2016-08-29 12:04] LABS: SQUAMOUS EPITHIAL 1 /hpf (0-5); URINE BACTERIA FEW (<OCC)
--- NOTE | 2016-08-29 13:03 | CP.CCUPN ---
<Sierra Waters - Last Filed: 08/29/16 17:46> CCU Subjective - Physician Review Subjective (Free Text): 08/29/16 15:49 Patient seen and examined at bedside. Afebrile overnight. Patient tolerating CPAP + PS (6, 10, 40%) since this AM- will attempt extubation today ET tube has some secretions Patient is not on any sedation Patient opens eyes to name and follows simple commands Tolerating feeds at @35cc/hr Complete ROS unobtainable CCU Objective - Vital Signs / Intake & Output Vital Signs (Last 4 hours): Vital Signs Pulse Resp BP Pulse Ox 08/29/16 11:16 112 H 21 156/91 H 100 08/29/16 10:19 138/76 08/29/16 10:16 101 H 20 138/76 100 Intake and Output (Last 8hrs): Intake & Output 08/28/16 08/29/16 08/29/16 22:59 06:59 14:59 Intake Total 440 480 275 Output Total 1305 1485 335 Balance -865 -1005 -60 Weight 115 lb 6.4 oz Intake: Intake, IV Amount 100 100 100 Right PICC 100 100 100 Tube Feeding 280 280 175 Other 60 100 Output: Urine 1305 1485 335 Urethral (Martinez) 1305 1485 335 Other: # Bowel Movements 0 0 0 - Physical Exam Head: Positive for: Normocephalic, Ecchymosis, Other (Contusions over left side of face healing). Negative for: Atraumatic Pupils: Positive for: PERRL Extroacular Muscles: Positive for: Other (opens eyes to name) Conjunctiva: Positive for: Normal. Negative for: Injected, Icteric Mouth: Positive for: Dry, Other (ET tube in place- secretions noted) Neck: Negative for: JVD, Bruit Respiratory/Chest: Positive for: Good Air Exchange, Decreased Breath Sounds ( bibasilar R > L), Rales (bibasilar ), Other (intubated on vent). Negative for: Clear to Auscultation, Respiratory Distress, Accessory Muscle Use, Wheezes, Retracting, Rhonchi Cardiovascular: Positive for: Normal S1, S2, Peripheal Pulses Present, Tachycardic. Negative for: Murmurs, Irregular Rhythm Abdomen: Positive for: Normal Bowel Sounds. Negative for: Tenderness, Distention, Peritoneal Signs, Rebound, Guarding Upper Extremity: Positive for: Normal Inspection, NORMAL PULSES. Negative for: Edema Lower Extremity: Positive for: NORMAL PULSES, Deformity (right leg shortened and externally rotated ), Other (grimaces when b/l hips palpated; offloading boots secure). Negative for: Normal Inspection, Edema, Normal ROM Neurological: Positive for: Other (responds to name and grimaces) Skin: Positive for: Warm, Dry, Normal Color, Other (b/l ecchymosis on face noted ). Negative for: Rashes Psychiatric: Positive for: Alert (responds to name ) - Medications Active Medications: Active Medications Generic Name Dose Route Start Last Admin Trade Name Freq PRN Reason Stop Dose Admin Acetaminophen 650 mg 08/14/16 23:50 08/25/16 00:45 Tylenol 650mg/20.3ml Solution Ud PO 650 mg Q6H PRN Administration temp.100.4&above;mild pain 1-3 Acetazolamide 250 mg 08/29/16 10:00 08/29/16 10:54 Diamox 250 Mg Tab PO 250 mg BID [place] Administration Albuterol/Ipratropium 3 ml 08/16/16 14:00 08/29/16 08:34 Duoneb 3 Mg/0.5 Mg (3 Ml) Ud INH 3 ml RQ6 [place] Administration Digoxin 0.25 mg 08/11/16 18:00 08/28/16 17:40 Lanoxin PO 0.25 mg DAILY@1800 [place] Administration Furosemide 40 mg 08/28/16 15:38 08/28/16 15:43 Lasix IVP 40 mg Q48H [place] Administration Heparin Sodium (Porcine) 5,000 units 08/28/16 22:00 08/29/16 10:20 Heparin SC 5,000 units Q12 [place] Administration Imipenem/Cilastatin Sodium 250 100 mls @ 100 mls/hr 08/25/16 08:15 08/29/16 06:10 mg/ Sodium Chloride IVPB 100 mls/hr Q8 [place] Administration Fluconazole 100 mls @ 100 mls/hr 08/27/16 10:15 08/29/16 10:20 Diflucan Iv 200 Mg/100 Ml Ns IVPB 100 mls/hr DAILY [place] Administration Lisinopril 5 mg 08/17/16 10:00 08/29/16 12:02 Zestril PO 5 mg DAILY [place] Administration Lorazepam 1 mg 08/24/16 13:13 08/26/16 14:45 Ativan IVP 1 mg Q4 PRN Administration Anxiety Metoprolol Tartrate 25 mg 08/12/16 18:00 08/29/16 10:19 Lopressor PO 25 mg BID [place] Administration Morphine Sulfate 2 mg 08/22/16 03:45 08/28/16 16:51 Morphine IVP 2 mg Q4 PRN Administration Pain, severe (8-10) Pantoprazole Sodium 40 mg 08/27/16 06:00 08/29/16 06:09 Protonix Susp PO 40 mg 0600 [place] Administration Potassium Phos/Sodium Phos 1 pkt 08/28/16 10:00 08/29/16 10:22 Neutra-Phos PO 1 pkt TID [place] Administration Spironolactone 25 mg 08/28/16 11:30 08/29/16 10:19 Aldactone PO 25 mg DAILY [place] Administration - Patient Studies Lab Studies: Microbiology Studies 08/25/16 08:09 Gram Stain - Final Trachasp Sputum Culture - Final Yeast Species Lab Studies 08/29/16 08/29/16 08/29/16 Range/Units 11:25 06:22 06:20 WBC 7.9 (4.8-10.8) K/uL RBC 2.58 L (3.80-5.20) Mil/uL Hgb 9.1 L (11.0-16.0) g/dL Hct 27.8 L (34.0-47.0) % MCV 107.8 H (81.0-99.0) fL MCH 35.5 H (27.0-31.0) pg MCHC 32.9 L (33.0-37.0) g/dL RDW 15.9 H (11.5-14.5) % Plt Count 207 (130-400) K/uL MPV 9.5 (7.2-11.7) fL Neut % (Auto) 83.8 H (50.0-75.0) % Lymph % (Auto) 5.8 L (20.0-40.0) % Mcleod % (Auto) 8.0 (0.0-10.0) % Eos % (Auto) 1.6 (0.0-4.0) % Baso % (Auto) 0.8 (0.0-2.0) % Neut # 6.6 (1.8-7.0) K/uL Lymph # 0.5 L (1.0-4.3) K/uL Mcleod # 0.6 (0.0-0.8) K/uL Eos # 0.1 (0.0-0.7) K/uL Baso # 0.1 (0.0-0.2) K/uL Neutrophils % (Manual) 82 H (50-75) % Band Neutrophils % 4 H (0-2) % Lymphocytes % (Manual) 4 L (20-40) % Monocytes % (Manual) 9 (0-10) % Eosinophils % (Manual) 1 (0-4) % Platelet Estimate Normal (NORMAL) Poikilocytosis (manual Slight Anisocytosis (manual) Slight Macrocytosis (manual) Slight Puncture Site pCO2 (35-45) mm/Hg pO2 (80-100) mm/Hg HCO3 (21-28) mmol/L ABG pH (7.35-7.45) ABG Total CO2 (22-28) mmol/L ABG O2 Saturation (95-98) % ABG Base Excess (-2.0-3.0) mmol/L ABG Hemoglobin (11.7-17.4) g/dL ABG Carboxyhemoglobin (0.5-1.5) % POC ABG HHb (Measured) (0.0-5.0) % ABG Methemoglobin (0.0-3.0) % Seng Test A-a O2 Difference mm/Hg Respiratory Index Hgb O2 Saturation (95.0-98.0) % Mechanical Rate FiO2 % Tidal Volume PEEP Sodium 135 (132-148) mmol/L Potassium 3.7 (3.6-5.2) mmol/L Chloride 95 L (98-107) mmol/L Carbon Dioxide 35 H (22-30) mmol/L Anion Gap 9 L (10-20) BUN 17 (7-17) mg/dL Creatinine 0.5 L (0.7-1.2) MG/DL Est GFR ( Amer) > 60 Est GFR (Non-Af Amer) > 60 Random Glucose 95 (65-105) mg/dL Calcium 7.3 L (8.6-10.4) mg/dl Phosphorus 2.2 L (2.5-4.5) mg/dL Magnesium 1.6 (1.6-2.3) mg/dL Total Bilirubin 0.4 (0.2-1.3) mg/dL AST 26 (14-36) U/L ALT 30 (9-52) U/L Alkaline Phosphatase 129 H (38-126) U/L Total Protein 4.5 L (6.3-8.3) g/dL Albumin 2.1 L (3.5-5.0) g/dL Globulin 2.4 (2.2-3.9) gm/dL Albumin/Globulin Ratio 0.9 L (1.0-2.1) Urine Color Yellow (YELLOW) Urine Clarity Hazy (Clear) Urine pH 8.0 (5.0-8.0) Ur Specific [place] 1.015 (1.003-1.030) Urine Protein 2+ H (NEGATIVE) mg/dL Urine Glucose (UA) Negative (Normal) mg/dL Urine Ketones Negative (NEGATIVE) mg/dL Urine Blood Moderate (NEGATIVE) Urine Nitrate Negative (NEGATIVE) Urine Bilirubin Negative (NEGATIVE) Urine Urobilinogen 1.0 (0.2-1.0) mg/dL Ur Leukocyte Esterase Moderate (Negative) David/uL Urine WBC (Auto) 10 H (0-5) /hpf Urine RBC (Auto) 10 H (0-3) /hpf Ur Squamous Epith Cells 1 (0-5) /hpf Urine Bacteria Few H (<OCC) Urine Yeast (Budding) Rare H (NEGATIVE) /hpf 08/29/16 Range/Units 05:27 WBC (4.8-10.8) K/uL RBC (3.80-5.20) Mil/uL Hgb (11.0-16.0) g/dL Hct (34.0-47.0) % MCV (81.0-99.0) fL MCH (27.0-31.0) pg MCHC (33.0-37.0) g/dL RDW (11.5-14.5) % Plt Count (130-400) K/uL MPV (7.2-11.7) fL Neut % (Auto) (50.0-75.0) % Lymph % (Auto) (20.0-40.0) % Mcleod % (Auto) (0.0-10.0) % Eos % (Auto) (0.0-4.0) % Baso % (Auto) (0.0-2.0) % Neut # (1.8-7.0) K/uL Lymph # (1.0-4.3) K/uL Mcleod # (0.0-0.8) K/uL Eos # (0.0-0.7) K/uL Baso # (0.0-0.2) K/uL Neutrophils % (Manual) (50-75) % Band Neutrophils % (0-2) % Lymphocytes % (Manual) (20-40) % Monocytes % (Manual) (0-10) % Eosinophils % (Manual) (0-4) % Platelet Estimate (NORMAL) Poikilocytosis (manual Anisocytosis (manual) Macrocytosis (manual) Puncture Site Rb pCO2 44 (35-45) mm/Hg pO2 79 L (80-100) mm/Hg HCO3 36.0 H (21-28) mmol/L ABG pH 7.55 H (7.35-7.45) ABG Total CO2 39.9 H (22-28) mmol/L ABG O2 Saturation 98.4 H (95-98) % ABG Base Excess 14.3 H (-2.0-3.0) mmol/L ABG Hemoglobin 14.2 (11.7-17.4) g/dL ABG Carboxyhemoglobin 1.8 H (0.5-1.5) % POC ABG HHb (Measured) 1.6 (0.0-5.0) % ABG Methemoglobin 1.0 (0.0-3.0) % Seng Test Na A-a O2 Difference 151.0 mm/Hg Respiratory Index 1.9 Hgb O2 Saturation 95.7 (95.0-98.0) % Mechanical Rate 14 FiO2 40.0 % Tidal Volume 450 PEEP 5 Sodium (132-148) mmol/L Potassium (3.6-5.2) mmol/L Chloride (98-107) mmol/L Carbon Dioxide (22-30) mmol/L Anion Gap (10-20) BUN (7-17) mg/dL Creatinine (0.7-1.2) MG/DL Est GFR ( Amer) Est GFR (Non-Af Amer) Random Glucose (65-105) mg/dL Calcium (8.6-10.4) mg/dl Phosphorus (2.5-4.5) mg/dL Magnesium (1.6-2.3) mg/dL Total Bilirubin (0.2-1.3) mg/dL AST (14-36) U/L ALT (9-52) U/L Alkaline Phosphatase (38-126) U/L Total Protein (6.3-8.3) g/dL Albumin (3.5-5.0) g/dL Globulin (2.2-3.9) gm/dL Albumin/Globulin Ratio (1.0-2.1) Urine Color (YELLOW) Urine Clarity (Clear) Urine pH (5.0-8.0) Ur Specific [place] (1.003-1.030) Urine Protein (NEGATIVE) mg/dL Urine Glucose (UA) (Normal) mg/dL Urine Ketones (NEGATIVE) mg/dL Urine Blood (NEGATIVE) Urine Nitrate (NEGATIVE) Urine Bilirubin (NEGATIVE) Urine Urobilinogen (0.2-1.0) mg/dL Ur Leukocyte Esterase (Negative) David/uL Urine WBC (Auto) (0-5) /hpf Urine RBC (Auto) (0-3) /hpf Ur Squamous Epith Cells (0-5) /hpf Urine Bacteria (<OCC) Urine Yeast (Budding) (NEGATIVE) /hpf Laboratory Results - last 24 hr 08/29/16 08/29/16 08/29/16 05:27 06:20 06:22 WBC 7.9 RBC 2.58 L Hgb 9.1 L Hct 27.8 L MCV 107.8 H MCH 35.5 H MCHC 32.9 L RDW 15.9 H Plt Count 207 MPV 9.5 Neut % (Auto) 83.8 H Lymph % (Auto) 5.8 L Mcleod % (Auto) 8.0 Eos % (Auto) 1.6 Baso % (Auto) 0.8 Neut # 6.6 Lymph # 0.5 L Mcleod # 0.6 Eos # 0.1 Baso # 0.1 Neutrophils % (Manual) 82 H Band Neutrophils % 4 H Lymphocytes % (Manual) 4 L Monocytes % (Manual) 9 Eosinophils % (Manual) 1 Platelet Estimate Normal Poikilocytosis (manual Slight Anisocytosis (manual) Slight Macrocytosis (manual) Slight Puncture Site Rb pCO2 44 pO2 79 L HCO3 36.0 H ABG pH 7.55 H ABG Total CO2 39.9 H ABG O2 Saturation 98.4 H ABG Base Excess 14.3 H ABG Hemoglobin 14.2 ABG Carboxyhemoglobin 1.8 H POC ABG HHb (Measured) 1.6 ABG Methemoglobin 1.0 Seng Test Na A-a O2 Difference 151.0 Respiratory Index 1.9 Hgb O2 Saturation 95.7 Mechanical Rate 14 FiO2 40.0 Tidal Volume 450 PEEP 5 Sodium 135 Potassium 3.7 Chloride 95 L Carbon Dioxide 35 H Anion Gap 9 L BUN 17 Creatinine 0.5 L Est GFR ( Amer) > 60 Est GFR (Non-Af Amer) > 60 Random Glucose 95 Calcium 7.3 L Phosphorus 2.2 L Magnesium 1.6 Total Bilirubin 0.4 AST 26 ALT 30 Alkaline Phosphatase 129 H Total Protein 4.5 L Albumin 2.1 L Globulin 2.4 Albumin/Globulin Ratio 0.9 L Urine Color Urine Clarity Urine pH Ur Specific [place] Urine Protein Urine Glucose (UA) Urine Ketones Urine Blood Urine Nitrate Urine Bilirubin Urine Urobilinogen Ur Leukocyte Esterase Urine WBC (Auto) Urine RBC (Auto) Ur Squamous Epith Cells Urine Bacteria Urine Yeast (Budding) 08/29/16 11:25 WBC RBC Hgb Hct MCV MCH MCHC RDW Plt Count MPV Neut % (Auto) Lymph % (Auto) Mcleod % (Auto) Eos % (Auto) Baso % (Auto) Neut # Lymph # Mcleod # Eos # Baso # Neutrophils % (Manual) Band Neutrophils % Lymphocytes % (Manual) Monocytes % (Manual) Eosinophils % (Manual) Platelet Estimate Poikilocytosis (manual Anisocytosis (manual) Macrocytosis (manual) Puncture Site pCO2 pO2 HCO3 ABG pH ABG Total CO2 ABG O2 Saturation ABG Base Excess ABG Hemoglobin ABG Carboxyhemoglobin POC ABG HHb (Measured) ABG Methemoglobin Seng Test A-a O2 Difference Respiratory Index Hgb O2 Saturation Mechanical Rate FiO2 Tidal Volume PEEP Sodium Potassium Chloride Carbon Dioxide Anion Gap BUN Creatinine Est GFR ( Amer) Est GFR (Non-Af Amer) Random Glucose Calcium Phosphorus Magnesium Total Bilirubin AST ALT Alkaline Phosphatase Total Protein Albumin Globulin Albumin/Globulin Ratio Urine Color Yellow Urine Clarity Hazy Urine pH 8.0 Ur Specific [place] 1.015 Urine Protein 2+ H Urine Glucose (UA) Negative Urine Ketones Negative Urine Blood Moderate Urine Nitrate Negative Urine Bilirubin Negative Urine Urobilinogen 1.0 Ur Leukocyte Esterase Moderate Urine WBC (Auto) 10 H Urine RBC (Auto) 10 H Ur Squamous Epith Cells 1 Urine Bacteria Few H Urine Yeast (Budding) Rare H Review of Systems - Review of Systems Systems not reviewed;Unavailable: Intubated Assessment/Plan - Assessment and Plan (Free Text) Assessment: 76 F PMHx HTN, A. fib, COPD (still smokes), anxiety, recurrent falls admitted for sepsis from UTI and bilateral hip fractures. Plan: Neuro: -Responds to name and follows simple commands. Alert and not on any sedation. -Ativan 1mg ivp q5 prn anxiety -Head CT 08/15: negative Pulm: -Respiratory failure likely secondary to recurrent aspiration pneumonia vs HAP vs ventilator acquired pna -CPAP trial this AM (, , 40%) -CXR 08/28: hyperinflation suggestive for COPD or emphysematous changes; scattered nodular densities in both lungs; diffuse increased IS lung markings; patchy consolidative changes at the lung bases with associated L pleural effusion -Chest pigtail catheter placed 08/19 for large R pleural effusion- removed 08/23 -s/p thoracentesis of pleural effusion 08/19 WBC 12 RBC 219 Neutrophils 25 Lymphocytes 63 Monocytes 12 Fluid comment: few macrophages and mesothelials Total protein < 3 LDH 43 Glucose 106 -sputum culture (08/14/16): Yeast species. 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; great collaterals from L to R system; no coronary intervention -Echo 08/09: EF 25-30%; LV systolic function severely imparied; global hypokinesia more pronounced in anterospetal area; Grade I abnl relaxation pattern on transmitral doppler flow; MR moderate to severe; mild pulm HTN -Digoxin 0.25mg po daily -Lisinopril 5mg po daily -Lopressor 25mg po bid -Lasix 40mg ivp every other day -Aldactone 25mg po daily -Diamox 250mg po bid -Patient given albumin one time 08/26 Heme: -Hgb needs to be 10 as per ortho before surgery -transfuse if needed preop Renal: -BUN/Cr 18/0.5 -UO improving Endo: -no acute issues GI: -NGT feedings @ 35cc/hr tolerating with no residuals MSK: -b/l hip fracture -surgical intervention 09/01/16 as per ortho -Hgb needs to be 10 as per ortho before surgery -Morphine 2mg ivp q4 prn pain ID: -procalcitonin (08/26/16) 2.31 -Tylenol for temp 650mg po q6 prn -Primaxin 250mg ivpb q8 -sputum culture 08/14: Yeast species. -urine culture 08/14: yeast species -Diflucan 200mg IV daily x 14 days DVT proph: Heparin 5000u sc q12 GI proph: Protonix 40mg po daily Code status: full code Case discussed w Dr Lupe Waters PGY2 <Max Andrade - Last Filed: 08/29/16 18:36> CCU Objective - Vital Signs / Intake & Output Vital Signs (Last 4 hours): Vital Signs Temp Pulse Resp BP Pulse Ox 08/29/16 17:16 110 H 27 H 140/84 91 L 08/29/16 16:17 112 H 25 H 140/82 100 08/29/16 16:00 98.7 F 08/29/16 15:16 108 H 24 133/79 100 Intake and Output (Last 8hrs): Intake & Output 08/29/16 08/29/16 08/29/16 06:59 14:59 22:59 Intake Total 480 480 70 Output Total 1485 519 325 Balance -1005 -39 -255 Weight 115 lb 6.4 oz Intake: Intake, IV Amount 100 200 Right PICC 100 200 Tube Feeding 280 280 70 Other 100 Output: Urine 1485 519 325 Urethral (Martinez) 1485 519 325 Other: # Bowel Movements 0 0 - Medications Active Medications: Active Medications Generic Name Dose Route Start Last Admin Trade Name Freq PRN Reason Stop Dose Admin Acetaminophen 650 mg 08/14/16 23:50 08/25/16 00:45 Tylenol 650mg/20.3ml Solution Ud PO 650 mg Q6H PRN Administration temp.100.4&above;mild pain 1-3 Acetazolamide 250 mg 08/29/16 10:00 08/29/16 10:54 Diamox 250 Mg Tab PO 250 mg BID [place] Administration Albuterol/Ipratropium 3 ml 08/16/16 14:00 08/29/16 13:09 Duoneb 3 Mg/0.5 Mg (3 Ml) Ud INH 3 ml RQ6 [place] Administration Digoxin 0.25 mg 08/11/16 18:00 08/28/16 17:40 Lanoxin PO 0.25 mg DAILY@1800 [place] Administration Furosemide 40 mg 08/28/16 15:38 08/28/16 15:43 Lasix IVP 40 mg Q48H [place] Administration Heparin Sodium (Porcine) 5,000 units 08/28/16 22:00 08/29/16 10:20 Heparin SC 5,000 units Q12 [place] Administration Imipenem/Cilastatin Sodium 250 100 mls @ 100 mls/hr 08/25/16 08:15 08/29/16 14:37 mg/ Sodium Chloride IVPB 100 mls/hr Q8 [place] Administration Fluconazole 100 mls @ 100 mls/hr 08/27/16 10:15 08/29/16 10:20 Diflucan Iv 200 Mg/100 Ml Ns IVPB 100 mls/hr DAILY [place] Administration Lisinopril 5 mg 08/17/16 10:00 08/29/16 12:02 Zestril PO 5 mg DAILY [place] Administration Lorazepam 1 mg 08/24/16 13:13 08/26/16 14:45 Ativan IVP 1 mg Q4 PRN Administration Anxiety Metoprolol Tartrate 25 mg 08/12/16 18:00 08/29/16 10:19 Lopressor PO 25 mg BID [place] Administration Metoprolol Tartrate 5 mg 08/30/16 00:00 Lopressor IVP Q6 [place] Morphine Sulfate 2 mg 08/22/16 03:45 08/28/16 16:51 Morphine IVP 2 mg Q4 PRN Administration Pain, severe (8-10) Pantoprazole Sodium 40 mg 08/27/16 06:00 08/29/16 06:09 Protonix Susp PO 40 mg 0600 [place] Administration Potassium Phos/Sodium Phos 1 pkt 08/28/16 10:00 08/29/16 14:38 Neutra-Phos PO 1 pkt TID [place] Administration Spironolactone 25 mg 08/28/16 11:30 08/29/16 10:19 Aldactone PO 25 mg DAILY [place] Administration - Patient Studies Lab Studies: Lab Studies 08/29/16 08/29/16 08/29/16 Range/Units 11:25 06:22 06:20 WBC 7.9 (4.8-10.8) K/uL RBC 2.58 L (3.80-5.20) Mil/uL Hgb 9.1 L (11.0-16.0) g/dL Hct 27.8 L (34.0-47.0) % MCV 107.8 H (81.0-99.0) fL MCH 35.5 H (27.0-31.0) pg MCHC 32.9 L (33.0-37.0) g/dL RDW 15.9 H (11.5-14.5) % Plt Count 207 (130-400) K/uL MPV 9.5 (7.2-11.7) fL Neut % (Auto) 83.8 H (50.0-75.0) % Lymph % (Auto) 5.8 L (20.0-40.0) % Mcleod % (Auto) 8.0 (0.0-10.0) % Eos % (Auto) 1.6 (0.0-4.0) % Baso % (Auto) 0.8 (0.0-2.0) % Neut # 6.6 (1.8-7.0) K/uL Lymph # 0.5 L (1.0-4.3) K/uL Mcleod # 0.6 (0.0-0.8) K/uL Eos # 0.1 (0.0-0.7) K/uL Baso # 0.1 (0.0-0.2) K/uL Neutrophils % (Manual) 82 H (50-75) % Band Neutrophils % 4 H (0-2) % Lymphocytes % (Manual) 4 L (20-40) % Monocytes % (Manual) 9 (0-10) % Eosinophils % (Manual) 1 (0-4) % Platelet Estimate Normal (NORMAL) Poikilocytosis (manual Slight Anisocytosis (manual) Slight Macrocytosis (manual) Slight Puncture Site pCO2 (35-45) mm/Hg pO2 (80-100) mm/Hg HCO3 (21-28) mmol/L ABG pH (7.35-7.45) ABG Total CO2 (22-28) mmol/L ABG O2 Saturation (95-98) % ABG Base Excess (-2.0-3.0) mmol/L ABG Hemoglobin (11.7-17.4) g/dL ABG Carboxyhemoglobin (0.5-1.5) % POC ABG HHb (Measured) (0.0-5.0) % ABG Methemoglobin (0.0-3.0) % Seng Test A-a O2 Difference mm/Hg Respiratory Index Hgb O2 Saturation (95.0-98.0) % Mechanical Rate FiO2 % Tidal Volume PEEP Sodium 135 (132-148) mmol/L Potassium 3.7 (3.6-5.2) mmol/L Chloride 95 L (98-107) mmol/L Carbon Dioxide 35 H (22-30) mmol/L Anion Gap 9 L (10-20) BUN 17 (7-17) mg/dL Creatinine 0.5 L (0.7-1.2) MG/DL Est GFR ( Amer) > 60 Est GFR (Non-Af Amer) > 60 Random Glucose 95 (65-105) mg/dL Calcium 7.3 L (8.6-10.4) mg/dl Phosphorus 2.2 L (2.5-4.5) mg/dL Magnesium 1.6 (1.6-2.3) mg/dL Total Bilirubin 0.4 (0.2-1.3) mg/dL AST 26 (14-36) U/L ALT 30 (9-52) U/L Alkaline Phosphatase 129 H (38-126) U/L Total Protein 4.5 L (6.3-8.3) g/dL Albumin 2.1 L (3.5-5.0) g/dL Globulin 2.4 (2.2-3.9) gm/dL Albumin/Globulin Ratio 0.9 L (1.0-2.1) Urine Color Yellow (YELLOW) Urine Clarity Hazy (Clear) Urine pH 8.0 (5.0-8.0) Ur Specific [place] 1.015 (1.003-1.030) Urine Protein 2+ H (NEGATIVE) mg/dL Urine Glucose (UA) Negative (Normal) mg/dL Urine Ketones Negative (NEGATIVE) mg/dL Urine Blood Moderate (NEGATIVE) Urine Nitrate Negative (NEGATIVE) Urine Bilirubin Negative (NEGATIVE) Urine Urobilinogen 1.0 (0.2-1.0) mg/dL Ur Leukocyte Esterase Moderate (Negative) David/uL Urine WBC (Auto) 10 H (0-5) /hpf Urine RBC (Auto) 10 H (0-3) /hpf Ur Squamous Epith Cells 1 (0-5) /hpf Urine Bacteria Few H (<OCC) Urine Yeast (Budding) Rare H (NEGATIVE) /hpf 08/29/16 Range/Units 05:27 WBC (4.8-10.8) K/uL RBC (3.80-5.20) Mil/uL Hgb (11.0-16.0) g/dL Hct (34.0-47.0) % MCV (81.0-99.0) fL MCH (27.0-31.0) pg MCHC (33.0-37.0) g/dL RDW (11.5-14.5) % Plt Count (130-400) K/uL MPV (7.2-11.7) fL Neut % (Auto) (50.0-75.0) % Lymph % (Auto) (20.0-40.0) % Mcleod % (Auto) (0.0-10.0) % Eos % (Auto) (0.0-4.0) % Baso % (Auto) (0.0-2.0) % Neut # (1.8-7.0) K/uL Lymph # (1.0-4.3) K/uL Mcleod # (0.0-0.8) K/uL Eos # (0.0-0.7) K/uL Baso # (0.0-0.2) K/uL Neutrophils % (Manual) (50-75) % Band Neutrophils % (0-2) % Lymphocytes % (Manual) (20-40) % Monocytes % (Manual) (0-10) % Eosinophils % (Manual) (0-4) % Platelet Estimate (NORMAL) Poikilocytosis (manual Anisocytosis (manual) Macrocytosis (manual) Puncture Site Rb pCO2 44 (35-45) mm/Hg pO2 79 L (80-100) mm/Hg HCO3 36.0 H (21-28) mmol/L ABG pH 7.55 H (7.35-7.45) ABG Total CO2 39.9 H (22-28) mmol/L ABG O2 Saturation 98.4 H (95-98) % ABG Base Excess 14.3 H (-2.0-3.0) mmol/L ABG Hemoglobin 14.2 (11.7-17.4) g/dL ABG Carboxyhemoglobin 1.8 H (0.5-1.5) % POC ABG HHb (Measured) 1.6 (0.0-5.0) % ABG Methemoglobin 1.0 (0.0-3.0) % Seng Test Na A-a O2 Difference 151.0 mm/Hg Respiratory Index 1.9 Hgb O2 Saturation 95.7 (95.0-98.0) % Mechanical Rate 14 FiO2 40.0 % Tidal Volume 450 PEEP 5 Sodium (132-148) mmol/L Potassium (3.6-5.2) mmol/L Chloride (98-107) mmol/L Carbon Dioxide (22-30) mmol/L Anion Gap (10-20) BUN (7-17) mg/dL Creatinine (0.7-1.2) MG/DL Est GFR ( Amer) Est GFR (Non-Af Amer) Random Glucose (65-105) mg/dL Calcium (8.6-10.4) mg/dl Phosphorus (2.5-4.5) mg/dL Magnesium (1.6-2.3) mg/dL Total Bilirubin (0.2-1.3) mg/dL AST (14-36) U/L ALT (9-52) U/L Alkaline Phosphatase (38-126) U/L Total Protein (6.3-8.3) g/dL Albumin (3.5-5.0) g/dL Globulin (2.2-3.9) gm/dL Albumin/Globulin Ratio (1.0-2.1) Urine Color (YELLOW) Urine Clarity (Clear) Urine pH (5.0-8.0) Ur Specific [place] (1.003-1.030) Urine Protein (NEGATIVE) mg/dL Urine Glucose (UA) (Normal) mg/dL Urine Ketones (NEGATIVE) mg/dL Urine Blood (NEGATIVE) Urine Nitrate (NEGATIVE) Urine Bilirubin (NEGATIVE) Urine Urobilinogen (0.2-1.0) mg/dL Ur Leukocyte Esterase (Negative) David/uL Urine WBC (Auto) (0-5) /hpf Urine RBC (Auto) (0-3) /hpf Ur Squamous Epith Cells (0-5) /hpf Urine Bacteria (<OCC) Urine Yeast (Budding) (NEGATIVE) /hpf Laboratory Results - last 24 hr 08/29/16 08/29/16 08/29/16 05:27 06:20 06:22 WBC 7.9 RBC 2.58 L Hgb 9.1 L Hct 27.8 L MCV 107.8 H MCH 35.5 H MCHC 32.9 L RDW 15.9 H Plt Count 207 MPV 9.5 Neut % (Auto) 83.8 H Lymph % (Auto) 5.8 L Mcleod % (Auto) 8.0 Eos % (Auto) 1.6 Baso % (Auto) 0.8 Neut # 6.6 Lymph # 0.5 L Mcleod # 0.6 Eos # 0.1 Baso # 0.1 Neutrophils % (Manual) 82 H Band Neutrophils % 4 H Lymphocytes % (Manual) 4 L Monocytes % (Manual) 9 Eosinophils % (Manual) 1 Platelet Estimate Normal Poikilocytosis (manual Slight Anisocytosis (manual) Slight Macrocytosis (manual) Slight Puncture Site Rb pCO2 44 pO2 79 L HCO3 36.0 H ABG pH 7.55 H ABG Total CO2 39.9 H ABG O2 Saturation 98.4 H ABG Base Excess 14.3 H ABG Hemoglobin 14.2 ABG Carboxyhemoglobin 1.8 H POC ABG HHb (Measured) 1.6 ABG Methemoglobin 1.0 Seng Test Na A-a O2 Difference 151.0 Respiratory Index 1.9 Hgb O2 Saturation 95.7 Mechanical Rate 14 FiO2 40.0 Tidal Volume 450 PEEP 5 Sodium 135 Potassium 3.7 Chloride 95 L Carbon Dioxide 35 H Anion Gap 9 L BUN 17 Creatinine 0.5 L Est GFR ( Amer) > 60 Est GFR (Non-Af Amer) > 60 Random Glucose 95 Calcium 7.3 L Phosphorus 2.2 L Magnesium 1.6 Total Bilirubin 0.4 AST 26 ALT 30 Alkaline Phosphatase 129 H Total Protein 4.5 L Albumin 2.1 L Globulin 2.4 Albumin/Globulin Ratio 0.9 L Urine Color Urine Clarity Urine pH Ur Specific [place] Urine Protein Urine Glucose (UA) Urine Ketones Urine Blood Urine Nitrate Urine Bilirubin Urine Urobilinogen Ur Leukocyte Esterase Urine WBC (Auto) Urine RBC (Auto) Ur Squamous Epith Cells Urine Bacteria Urine Yeast (Budding) 08/29/16 11:25 WBC RBC Hgb Hct MCV MCH MCHC RDW Plt Count MPV Neut % (Auto) Lymph % (Auto) [place]od % (Auto) Eos % (Auto) Baso % (Auto) Neut # Lymph # Mcleod # Eos # Baso # Neutrophils % (Manual) Band Neutrophils % Lymphocytes % (Manual) Monocytes % (Manual) Eosinophils % (Manual) Platelet Estimate Poikilocytosis (manual Anisocytosis (manual) Macrocytosis (manual) Puncture Site pCO2 pO2 HCO3 ABG pH ABG Total CO2 ABG O2 Saturation ABG Base Excess ABG Hemoglobin ABG Carboxyhemoglobin POC ABG HHb (Measured) ABG Methemoglobin Seng Test A-a O2 Difference Respiratory Index Hgb O2 Saturation Mechanical Rate FiO2 Tidal Volume PEEP Sodium Potassium Chloride Carbon Dioxide Anion Gap BUN Creatinine Est GFR ( Amer) Est GFR (Non-Af Amer) Random Glucose Calcium Phosphorus Magnesium Total Bilirubin AST ALT Alkaline Phosphatase Total Protein Albumin Globulin Albumin/Globulin Ratio Urine Color Yellow Urine Clarity Hazy Urine pH 8.0 Ur Specific [place] 1.015 Urine Protein 2+ H Urine Glucose (UA) Negative Urine Ketones Negative Urine Blood Moderate Urine Nitrate Negative Urine Bilirubin Negative Urine Urobilinogen 1.0 Ur Leukocyte Esterase Moderate Urine WBC (Auto) 10 H Urine RBC (Auto) 10 H Ur Squamous Epith Cells 1 Urine Bacteria Few H Urine Yeast (Budding) Rare H Assessment/Plan (1) Pleural effusion due to CHF (congestive heart failure) Current Visit: Yes Status: Acute Attending/Attestation - Attestation I have personally seen and examined this patient.: Yes I have fully participated in the care of the patient.: Yes I have reviewed all pertinent clinical information: Yes Notes (Text): 08/29/16 18:35 I have seen and examined the patient. Medical records, lab studies, and imaging were reviewed by me and a management plan was formulated on multidisciplinary rounds with resident Dr. Waters. I agree with their above documented assessment and plan. Patient was extubated to BIPAP, to minimize her time on vent. Planned surgery for Thursday, b/l hip repairs. Critical Care Time 35 minutes. Multi-disciplinary rounds were performed with house staff, nursing, speech therapy, respiratory therapy, pharmacy and nutrition with integrated input from the primary team/attending and other consulting services. The documented time is cumulative and includes review of patient data/exams/labs/chart review and examination of the patient on rounds and throughout the day; time is exclusive of any procedures or teaching time.
--- NOTE | 2016-08-29 13:42 | CP.PCM.PN ---
Subjective - Date & Time of Evaluation Date of Evaluation: 08/29/16 Time of Evaluation: 08:00 - Subjective Subjective: awake alert weaning in progress remains afebrile no new positive cultures Objective - Vital Signs/Intake and Output Vital Signs (last 24 hours): Temp Pulse Resp BP Pulse Ox 98.1 F 112 H 21 156/91 H 100 08/29/16 08:00 08/29/16 11:16 08/29/16 11:16 08/29/16 11:16 08/29/16 11:16 Intake and Output: 08/29/16 08/29/16 06:59 18:59 Intake Total 720 275 Output Total 2080 335 Balance -1360 -60 - Medications Medications: Current Medications Acetaminophen (Tylenol 650mg/20.3ml Solution Ud) 650 mg PO Q6H PRN PRN Reason: temp.100.4&above;mild pain 1-3 Last Admin: 08/25/16 00:45 Dose: 650 mg Acetazolamide (Diamox 250 Mg Tab) 250 mg PO BID [facility] Last Admin: 08/29/16 10:54 Dose: 250 mg Albuterol/Ipratropium (Duoneb 3 Mg/0.5 Mg (3 Ml) Ud) 3 ml INH RQ6 [facility] Last Admin: 08/29/16 13:09 Dose: 3 ml Digoxin (Lanoxin) 0.25 mg PO DAILY@1800 [facility] Last Admin: 08/28/16 17:40 Dose: 0.25 mg Furosemide (Lasix) 40 mg IVP Q48H [facility] Last Admin: 08/28/16 15:43 Dose: 40 mg Heparin Sodium (Porcine) (Heparin) 5,000 units SC Q12 [facility] Last Admin: 08/29/16 10:20 Dose: 5,000 units Imipenem/Cilastatin Sodium 250 (mg/ Sodium Chloride) 100 mls @ 100 mls/hr IVPB Q8 [facility] Last Admin: 08/29/16 06:10 Dose: 100 mls/hr Fluconazole (Diflucan Iv 200 Mg/100 Ml Ns) 100 mls @ 100 mls/hr IVPB DAILY [facility] Last Admin: 08/29/16 10:20 Dose: 100 mls/hr Lisinopril (Zestril) 5 mg PO DAILY [facility] Last Admin: 08/29/16 12:02 Dose: 5 mg Lorazepam (Ativan) 1 mg IVP Q4 PRN PRN Reason: Anxiety Last Admin: 08/26/16 14:45 Dose: 1 mg Metoprolol Tartrate (Lopressor) 25 mg PO BID [facility] Last Admin: 08/29/16 10:19 Dose: 25 mg Morphine Sulfate (Morphine) 2 mg IVP Q4 PRN PRN Reason: Pain, severe (8-10) Last Admin: 08/28/16 16:51 Dose: 2 mg Pantoprazole Sodium (Protonix Susp) 40 mg PO 0600 [facility] Last Admin: 08/29/16 06:09 Dose: 40 mg Potassium Phos/Sodium Phos (Neutra-Phos) 1 pkt PO TID [facility] Last Admin: 08/29/16 10:22 Dose: 1 pkt Spironolactone (Aldactone) 25 mg PO DAILY [facility] Last Admin: 08/29/16 10:19 Dose: 25 mg - Labs Labs: 08/29/16 06:20 08/29/16 06:22 PT 10.6 SECONDS (9.7-12.2) 08/21/16 06:11 INR 1.0 08/21/16 06:11 APTT 29 SECONDS (21-34) 08/21/16 06:11 - Constitutional Appears: Non-toxic, Chronically Ill - Head Exam Head Exam: NORMOCEPHALIC - Eye Exam Eye Exam: PERRL. absent: Scleral icterus - ENT Exam ENT Exam: Mucous Membranes Dry, Normal External Ear Exam - Neck Exam Neck Exam: absent: Lymphadenopathy - Respiratory Exam Respiratory Exam: Decreased Breath Sounds, Rhonchi - Cardiovascular Exam Cardiovascular Exam: REGULAR RHYTHM, +S1, +S2 - GI/Abdominal Exam GI & Abdominal Exam: Distended, Soft - Rectal Exam Rectal Exam: Deferred - Exam Exam: NORMAL INSPECTION - Extremities Exam Extremities Exam: absent: Pedal Edema - Back Exam Back Exam: absent: CVA tenderness (L), CVA tenderness (R) - Neurological Exam Neurological Exam: Alert, Awake Assessment and Plan (1) Acute respiratory failure Status: Acute (2) Closed fracture of greater trochanter of left femur Status: Acute (3) Contusion of head Status: Acute (4) Fall Status: Acute (5) Garden grade IV closed subcapital fracture of proximal end of right femur Status: Acute (6) Pelvic fracture Status: Acute (7) Pleural effusion due to CHF (congestive heart failure) Status: Acute (8) Right middle lobe pneumonia Status: Acute (9) CHF (NYHA class III, ACC/AHA stage C) Status: Chronic (10) Degenerative joint disease of right hip Status: Chronic (11) Multifocal atrial tachycardia Status: Chronic (12) Arrhythmia Status: Resolved (13) CHF exacerbation Status: Resolved (14) Dehydration Status: Resolved (15) Pleural effusion, right Status: Resolved (16) Sepsis Status: Resolved
--- NOTE | 2016-08-29 18:17 | CP.PCM.PN ---
Subjective - Date & Time of Evaluation Date of Evaluation: 08/29/16 Time of Evaluation: 15:00 - Subjective Subjective: Patient remains intubated. Awake. Scheduled for a right hip replacement on Thursday. Objective - Vital Signs/Intake and Output Vital Signs (last 24 hours): Temp Pulse Resp BP Pulse Ox 98.7 F 110 H 27 H 140/84 91 L 08/29/16 16:00 08/29/16 17:16 08/29/16 17:16 08/29/16 17:16 08/29/16 17:16 Intake and Output: 08/29/16 08/29/16 06:59 18:59 Intake Total 720 550 Output Total 2080 844 Balance -1360 -294 - Medications Medications: Current Medications Acetaminophen (Tylenol 650mg/20.3ml Solution Ud) 650 mg PO Q6H PRN PRN Reason: temp.100.4&above;mild pain 1-3 Last Admin: 08/25/16 00:45 Dose: 650 mg Acetazolamide (Diamox 250 Mg Tab) 250 mg PO BID [facility] Last Admin: 08/29/16 10:54 Dose: 250 mg Albuterol/Ipratropium (Duoneb 3 Mg/0.5 Mg (3 Ml) Ud) 3 ml INH RQ6 [facility] Last Admin: 08/29/16 13:09 Dose: 3 ml Digoxin (Lanoxin) 0.25 mg PO DAILY@1800 [facility] Last Admin: 08/28/16 17:40 Dose: 0.25 mg Furosemide (Lasix) 40 mg IVP Q48H [facility] Last Admin: 08/28/16 15:43 Dose: 40 mg Heparin Sodium (Porcine) (Heparin) 5,000 units SC Q12 [facility] Last Admin: 08/29/16 10:20 Dose: 5,000 units Imipenem/Cilastatin Sodium 250 (mg/ Sodium Chloride) 100 mls @ 100 mls/hr IVPB Q8 [facility] Last Admin: 08/29/16 14:37 Dose: 100 mls/hr Fluconazole (Diflucan Iv 200 Mg/100 Ml Ns) 100 mls @ 100 mls/hr IVPB DAILY [facility] Last Admin: 08/29/16 10:20 Dose: 100 mls/hr Lisinopril (Zestril) 5 mg PO DAILY [facility] Last Admin: 08/29/16 12:02 Dose: 5 mg Lorazepam (Ativan) 1 mg IVP Q4 PRN PRN Reason: Anxiety Last Admin: 08/26/16 14:45 Dose: 1 mg Metoprolol Tartrate (Lopressor) 25 mg PO BID [facility] Last Admin: 08/29/16 10:19 Dose: 25 mg Metoprolol Tartrate (Lopressor) 5 mg IVP Q6 [facility] Morphine Sulfate (Morphine) 2 mg IVP Q4 PRN PRN Reason: Pain, severe (8-10) Last Admin: 08/28/16 16:51 Dose: 2 mg Pantoprazole Sodium (Protonix Susp) 40 mg PO 0600 [facility] Last Admin: 08/29/16 06:09 Dose: 40 mg Potassium Phos/Sodium Phos (Neutra-Phos) 1 pkt PO TID [facility] Last Admin: 08/29/16 14:38 Dose: 1 pkt Spironolactone (Aldactone) 25 mg PO DAILY [facility] Last Admin: 08/29/16 10:19 Dose: 25 mg - Labs Labs: 08/29/16 06:20 08/29/16 06:22 PT 10.6 SECONDS (9.7-12.2) 08/21/16 06:11 INR 1.0 08/21/16 06:11 APTT 29 SECONDS (21-34) 08/21/16 06:11 - Constitutional Appears: Chronically Ill - Head Exam Head Exam: NORMAL INSPECTION - Eye Exam Eye Exam: Normal appearance - ENT Exam ENT Exam: Normal Exam - Neck Exam Neck Exam: Normal Inspection - Respiratory Exam Additional comments: Ronchi bilaterally. - Cardiovascular Exam Cardiovascular Exam: REGULAR RHYTHM - GI/Abdominal Exam GI & Abdominal Exam: Soft, Normal Bowel Sounds - Rectal Exam Rectal Exam: Deferred - Extremities Exam Additional comments: Mild edema of the ankles. - Back Exam Back Exam: NORMAL INSPECTION - Neurological Exam Neurological Exam: Alert, Awake - Psychiatric Exam Additional comments: Patient is on respirator. - Skin Skin Exam: Abrasion Assessment and Plan (1) Closed fracture of greater trochanter of left femur Status: Acute (2) Dehydration Status: Resolved (3) Sepsis Status: Resolved (4) Fall Status: Acute (5) Arrhythmia Status: Resolved (6) Contusion of head Status: Acute (7) Garden grade IV closed subcapital fracture of proximal end of right femur Status: Acute (8) CHF exacerbation Status: Resolved (9) Acute respiratory failure Assessment & Plan: To leave the patient on respirator for surgery. Status: Acute (10) Pleural effusion, right Status: Resolved (11) Right middle lobe pneumonia Assessment & Plan: To continue IV antibiotic as per ID. Status: Acute
[2016-08-29] MEDS: Metoprolol 1 mg/ml Inj IVP SCH ×2 (18:57→23:30)
[2016-08-30] MEDS ORDERED: Metoprolol 1 mg/ml Inj IVP SCH
[2016-08-30] MEDS: Albuterol-Ipratrop 3 mg / 0.5 (3 ml) UD INH SCH ×4 (01:17→19:28)
--- NOTE | 2016-08-30 05:43 | CP.PCM.PN ---
Subjective - Date & Time of Evaluation Date of Evaluation: 08/30/16 Time of Evaluation: 05:43 Objective - Vital Signs/Intake and Output Vital Signs (last 24 hours): Temp Pulse Resp BP Pulse Ox 97.9 F 70 25 H 106/59 L 100 08/30/16 00:00 08/30/16 05:04 08/30/16 03:17 08/30/16 03:17 08/30/16 03:17 Intake and Output: 08/29/16 08/30/16 18:59 06:59 Intake Total 550 100 Output Total 906 605 Balance -356 -505 - Medications Medications: Current Medications Acetaminophen (Tylenol 650mg/20.3ml Solution Ud) 650 mg PO Q6H PRN PRN Reason: temp.100.4&above;mild pain 1-3 Last Admin: 08/25/16 00:45 Dose: 650 mg Acetazolamide (Diamox 250 Mg Tab) 250 mg PO BID [facility] Last Admin: 08/29/16 10:54 Dose: 250 mg Albuterol/Ipratropium (Duoneb 3 Mg/0.5 Mg (3 Ml) Ud) 3 ml INH RQ6 [facility] Last Admin: 08/30/16 01:17 Dose: 3 ml Digoxin (Lanoxin) 0.25 mg PO DAILY@1800 [facility] Last Admin: 08/28/16 17:40 Dose: 0.25 mg Furosemide (Lasix) 40 mg IVP Q48H [facility] Last Admin: 08/28/16 15:43 Dose: 40 mg Heparin Sodium (Porcine) (Heparin) 5,000 units SC Q12 [facility] Last Admin: 08/29/16 22:07 Dose: 5,000 units Imipenem/Cilastatin Sodium 250 (mg/ Sodium Chloride) 100 mls @ 100 mls/hr IVPB Q8 [facility] Last Admin: 08/29/16 22:00 Dose: 100 mls/hr Fluconazole (Diflucan Iv 200 Mg/100 Ml Ns) 100 mls @ 100 mls/hr IVPB DAILY [facility] Last Admin: 08/29/16 10:20 Dose: 100 mls/hr Lisinopril (Zestril) 5 mg PO DAILY [facility] Last Admin: 08/29/16 12:02 Dose: 5 mg Lorazepam (Ativan) 1 mg IVP Q4 PRN PRN Reason: Anxiety Last Admin: 08/26/16 14:45 Dose: 1 mg Metoprolol Tartrate (Lopressor) 25 mg PO BID [facility] Last Admin: 08/29/16 10:19 Dose: 25 mg Metoprolol Tartrate (Lopressor) 5 mg IVP Q6 [facility] Last Admin: 08/29/16 23:30 Dose: 5 mg Morphine Sulfate (Morphine) 2 mg IVP Q4 PRN PRN Reason: Pain, severe (8-10) Last Admin: 08/28/16 16:51 Dose: 2 mg Pantoprazole Sodium (Protonix Susp) 40 mg PO 0600 [facility] Last Admin: 08/29/16 06:09 Dose: 40 mg Pantoprazole Sodium (Protonix Inj) 40 mg IVP 0600 [facility] Potassium Phos/Sodium Phos (Neutra-Phos) 1 pkt PO TID [facility] Last Admin: 08/29/16 14:38 Dose: 1 pkt Spironolactone (Aldactone) 25 mg PO DAILY [facility] Last Admin: 08/29/16 10:19 Dose: 25 mg - Labs Labs: 08/29/16 06:20 08/29/16 06:22 PT 10.6 SECONDS (9.7-12.2) 08/21/16 06:11 INR 1.0 08/21/16 06:11 APTT 29 SECONDS (21-34) 08/21/16 06:11 Assessment and Plan (1) CHF exacerbation Status: Resolved
[2016-08-30] MEDS: Imipenem/Cilastatin 250 MG in Sodium Chloride 100 ML IVPB SCH ×3 (05:52→21:17)
[2016-08-30] MEDS: Metoprolol 1 mg/ml Inj IVP SCH ×3 (05:53→17:02)
[2016-08-30 06:24] LABS: BASO # 0.1 K/uL (0.0-0.2); BASO % 0.8 % (0.0-2.0); EOS # 0.1 K/uL (0.0-0.7); EOS % 0.6 % (0.0-4.0); HEMOGLOBIN 10.1 g/dL (11.0-16.0); LYMPH # 0.4 K/uL (1.0-4.3); MEAN CELL VOLUME 109.1 fL (81.0-99.0); MEAN CORPUSCULAR HEMOGLOBIN 35.8 pg (27.0-31.0); MEAN CORPUSCULAR HGB CONC 32.8 g/dL (33.0-37.0); MEAN PLATELET VOLUME 9.9 fL (7.2-11.7); MONO # 0.5 K/uL (0.0-0.8); NEUT # 9.2 K/uL (1.8-7.0); NEUT % 89.6 % (50.0-75.0); PLATELET COUNT 231 K/uL (130-400); RBC 2.82 Mil/uL (3.80-5.20); RED CELL DISTRIBUTION WIDTH 15.8 % (11.5-14.5); WHITE BLOOD COUNT 10.3 K/uL (4.8-10.8)
[2016-08-30 06:41] LABS: ALBUMIN 2.3 g/dL (3.5-5.0)
[2016-08-30 06:44] LABS: ALB/GLOB RATIO 0.8 (1.0-2.1); AST/SGOT 30 U/L (14-36); BLOOD UREA NITROGEN 16 mg/dL (7-17); GFR AFRICAN-AMERICAN > 60; GFR NON-AFRICAN AMERICAN > 60
[2016-08-30 06:45] LABS: ALT/SGPT 33 U/L (9-52); CALCIUM 7.4 mg/dl (8.6-10.4); MAGNESIUM 1.7 mg/dL (1.6-2.3)
[2016-08-30] MEDS: Fluconazole IV 200mg/100 ml NS 100 ML IVPB SCH (09:32)
[2016-08-30 10:09] LABS: BANDS 3 % (0-2); EOSINOPHIL 1 % (0-4); LYMPHOCYTE 3 % (20-40); MONOCYTE 1 % (0-10); NEUTROPHIL 92 % (50-75); TOTAL CELLS COUNTED 100
[2016-08-30 10:10] LABS: ANISOCYTOSIS SLIGHT; PLATELET ESTIMATE NORMAL (NORMAL); POIKILOCYTOSIS SLIGHT
[2016-08-30 10:11] LABS: LARGE PLATELETS PRESENT; OVALOCYTES SLIGHT; POLYCHROMIC SLIGHT; SPHEROCYTES SLIGHT; TOXIC GRANULATION PRESENT
[2016-08-30 10:12] LABS: TARGET CELLS SLIGHT; TEARDROP CELLS SLIGHT
[2016-08-30 10:36] LABS: ABG ALLEN TEST POS; ARTERIAL BLOOD GAS HCO3 28.3 mmol/L (21-28); ARTERIAL BLOOD GAS HEMOGLOBIN 10.3 g/dL (11.7-17.4); ARTERIAL BLOOD GAS O2 SAT 100.7 % (95-98); ARTERIAL BLOOD GAS PCO2 44 mm/Hg (35-45); ARTERIAL BLOOD GAS PH 7.43 (7.35-7.45); ARTERIAL BLOOD GAS PO2 157 mm/Hg (80-100); ARTERIAL BLOOD GAS TCO2 30.6 mmol/L (22-28)
--- NOTE | 2016-08-30 12:28 | RAD ---
HISTORY: follow up,s/p extubation yesterday COMPARISON: 08/29/2016 FINDINGS: LUNGS: Extensive right basilar opacity, slightly increased. PLEURA: Blunting of left costophrenic angle may reflect pleural effusion. No evidence of right pleural effusion. No pneumothorax. CARDIOVASCULAR: Status post removal of endotracheal tube. Nasogastric tube and right PICC catheter are unchanged in position. OSSEOUS STRUCTURES: No significant abnormalities. VISUALIZED UPPER ABDOMEN: Normal. OTHER FINDINGS: None. IMPRESSION: Status post extubation. Extensive right basilar opacity, increased. Possible small left pleural effusion.
--- NOTE | 2016-08-30 15:07 | CP.PCM.PN ---
Objective - Vital Signs/Intake and Output Vital Signs (last 24 hours): Temp Pulse Resp BP Pulse Ox 97.8 F 76 27 H 134/78 100 08/30/16 12:00 08/30/16 14:16 08/30/16 14:16 08/30/16 14:38 08/30/16 14:16 Intake and Output: 08/30/16 08/30/16 06:59 18:59 Intake Total 200 475 Output Total 1020 400 Balance -820 75 - Medications Medications: Current Medications Acetaminophen (Tylenol 650mg/20.3ml Solution Ud) 650 mg PO Q6H PRN PRN Reason: temp.100.4&above;mild pain 1-3 Last Admin: 08/25/16 00:45 Dose: 650 mg Albuterol/Ipratropium (Duoneb 3 Mg/0.5 Mg (3 Ml) Ud) 3 ml INH RQ6 [facility] Last Admin: 08/30/16 13:30 Dose: 3 ml Digoxin (Lanoxin) 0.25 mg PO DAILY@1800 [place] Furosemide (Lasix) 40 mg IVP Q48H [facility] Last Admin: 08/30/16 14:38 Dose: 40 mg Heparin Sodium (Porcine) (Heparin) 5,000 units SC Q12 [facility] Last Admin: 08/30/16 09:04 Dose: 5,000 units Fluconazole (Diflucan Iv 200 Mg/100 Ml Ns) 100 mls @ 100 mls/hr IVPB DAILY [facility] Last Admin: 08/30/16 09:32 Dose: 100 mls/hr Imipenem/Cilastatin Sodium 250 (mg/ Sodium Chloride) 100 mls @ 100 mls/hr IVPB Q8 [facility] Last Admin: 08/30/16 13:05 Dose: 100 mls/hr Lisinopril (Zestril) 5 mg PO DAILY [facility] Last Admin: 08/30/16 10:17 Dose: 5 mg Lorazepam (Ativan) 1 mg IVP Q4 PRN PRN Reason: Anxiety Last Admin: 08/26/16 14:45 Dose: 1 mg Metoprolol Tartrate (Lopressor) 25 mg PO BID [facility] Last Admin: 08/29/16 10:19 Dose: 25 mg Metoprolol Tartrate (Lopressor) 5 mg IVP Q6 [place] Last Admin: 08/30/16 11:53 Dose: 5 mg Morphine Sulfate (Morphine) 2 mg IVP Q4 PRN PRN Reason: Pain, severe (8-10) Last Admin: 08/28/16 16:51 Dose: 2 mg Pantoprazole Sodium (Protonix Susp) 40 mg PO 0600 [facility] Last Admin: 08/29/16 06:09 Dose: 40 mg Pantoprazole Sodium (Protonix Inj) 40 mg IVP 0600 [facility] Last Admin: 08/30/16 05:55 Dose: 40 mg Potassium Phos/Sodium Phos (Neutra-Phos) 1 pkt PO TID [facility] Last Admin: 08/29/16 14:38 Dose: 1 pkt Spironolactone (Aldactone) 25 mg PO DAILY [facility] Last Admin: 08/30/16 10:05 Dose: 25 mg - Labs Labs: 08/30/16 06:17 08/30/16 06:17 PT 10.6 SECONDS (9.7-12.2) 08/21/16 06:11 INR 1.0 08/21/16 06:11 APTT 29 SECONDS (21-34) 08/21/16 06:11 Assessment and Plan (1) Acute respiratory failure Status: Acute (2) CHF exacerbation Status: Resolved (3) Closed fracture of greater trochanter of left femur Status: Acute (4) Garden grade IV closed subcapital fracture of proximal end of right femur Status: Acute
--- NOTE | 2016-08-30 15:11 | CP.CCUPN ---
CCU Subjective - Physician Review Events Since Last Encounter (Free Text): 08/30/16 15:07 patient seen and examined in the intensive care unit. Case discussed with house staff in the morning rounds. Patient extubated yesterday and placed on BiPAP remains lethargic Afebrile NG tube placed for feeding as patient was hypoglycemic copious secretions CCU Objective - Vital Signs / Intake & Output Vital Signs (Last 4 hours): Vital Signs Temp Pulse Resp BP Pulse Ox 08/30/16 14:38 134/78 08/30/16 14:16 76 27 H 134/78 100 08/30/16 14:00 81 12 100 08/30/16 13:16 77 21 132/68 100 08/30/16 13:00 72 26 H 100 08/30/16 12:19 64 26 H 105/69 100 08/30/16 12:00 97.8 F 67 28 H 100 08/30/16 11:52 93 H 22 151/67 H 100 08/30/16 11:19 78 08/30/16 11:16 78 26 H 136/66 100 Intake and Output (Last 8hrs): Intake & Output 08/30/16 08/30/16 08/30/16 06:59 14:59 22:59 Intake Total 100 475 Output Total 770 400 Balance -670 75 Weight 118 lb 5 oz Intake: Intake, IV Amount 100 200 Right PICC 100 200 Tube Feeding 175 Other 100 Output: Urine 770 400 Urethral (Martinez) 770 400 Other: # Bowel Movements 0 0 - Physical Exam Head: Positive for: Normocephalic, Ecchymosis, Other (Contusions over left side of face healing). Negative for: Atraumatic Pupils: Positive for: PERRL Extroacular Muscles: Positive for: Other (opens eyes to name) Conjunctiva: Positive for: Normal. Negative for: Injected, Icteric Mouth: Positive for: Dry, Other (ET tube in place- secretions noted) Neck: Negative for: JVD, Bruit Respiratory/Chest: Positive for: Good Air Exchange, Decreased Breath Sounds ( bibasilar R > L), Rales (bibasilar ), Other (intubated on vent). Negative for: Clear to Auscultation, Respiratory Distress, Accessory Muscle Use, Wheezes, Retracting, Rhonchi Cardiovascular: Positive for: Normal S1, S2, Peripheal Pulses Present, Tachycardic. Negative for: Murmurs, Irregular Rhythm Abdomen: Positive for: Normal Bowel Sounds. Negative for: Tenderness, Distention, Peritoneal Signs, Rebound, Guarding Upper Extremity: Positive for: Normal Inspection, NORMAL PULSES. Negative for: Edema Lower Extremity: Positive for: NORMAL PULSES, Deformity (right leg shortened and externally rotated ), Other (grimaces when b/l hips palpated; offloading boots secure). Negative for: Normal Inspection, Edema, Normal ROM Neurological: Positive for: Other (responds to name and grimaces) Skin: Positive for: Warm, Dry, Normal Color, Other (b/l ecchymosis on face noted ). Negative for: Rashes Psychiatric: Positive for: Alert (responds to name ) - Medications Active Medications: Active Medications Generic Name Dose Route Start Last Admin Trade Name Freq PRN Reason Stop Dose Admin Acetaminophen 650 mg 08/14/16 23:50 08/25/16 00:45 Tylenol 650mg/20.3ml Solution Ud PO 650 mg Q6H PRN Administration temp.100.4&above;mild pain 1-3 Albuterol/Ipratropium 3 ml 08/16/16 14:00 08/30/16 13:30 Duoneb 3 Mg/0.5 Mg (3 Ml) Ud INH 3 ml RQ6 [facility] Administration Digoxin 0.25 mg 08/30/16 18:00 Lanoxin PO DAILY@1800 [facility] Furosemide 40 mg 08/28/16 15:38 08/30/16 14:38 Lasix IVP 40 mg Q48H [facility] Administration Heparin Sodium (Porcine) 5,000 units 08/28/16 22:00 08/30/16 09:04 Heparin SC 5,000 units Q12 [facility] Administration Fluconazole 100 mls @ 100 mls/hr 08/27/16 10:15 08/30/16 09:32 Diflucan Iv 200 Mg/100 Ml Ns IVPB 100 mls/hr DAILY [facility] Administration Imipenem/Cilastatin Sodium 250 100 mls @ 100 mls/hr 08/30/16 14:00 08/30/16 13:05 mg/ Sodium Chloride IVPB 100 mls/hr Q8 [facility] Administration Lisinopril 5 mg 08/17/16 10:00 08/30/16 10:17 Zestril PO 5 mg DAILY [facility] Administration Lorazepam 1 mg 08/24/16 13:13 08/26/16 14:45 Ativan IVP 1 mg Q4 PRN Administration Anxiety Metoprolol Tartrate 25 mg 08/12/16 18:00 08/29/16 10:19 Lopressor PO 25 mg BID [facility] Administration Metoprolol Tartrate 5 mg 08/29/16 18:50 08/30/16 11:53 Lopressor IVP 5 mg Q6 [facility] Administration Morphine Sulfate 2 mg 08/22/16 03:45 08/28/16 16:51 Morphine IVP 2 mg Q4 PRN Administration Pain, severe (8-10) Pantoprazole Sodium 40 mg 08/27/16 06:00 08/29/16 06:09 Protonix Susp PO 40 mg 0600 [facility] Administration Pantoprazole Sodium 40 mg 08/30/16 06:00 08/30/16 05:55 Protonix Inj IVP 40 mg 0600 [facility] Administration Potassium Phos/Sodium Phos 1 pkt 08/28/16 10:00 08/29/16 14:38 Neutra-Phos PO 1 pkt TID [facility] Administration Spironolactone 25 mg 08/28/16 11:30 08/30/16 10:05 Aldactone PO 25 mg DAILY [facility] Administration - Patient Studies Lab Studies: Microbiology Studies 08/29/16 12:00 Urine Culture - Preliminary Urine,Martinez Gram Positive Cocci Lab Studies 08/30/16 08/30/16 08/30/16 Range/Units 10:31 06:17 06:17 WBC 10.3 (4.8-10.8) K/uL RBC 2.82 L (3.80-5.20) Mil/uL Hgb 10.1 L (11.0-16.0) g/dL Hct 30.8 L (34.0-47.0) % MCV 109.1 H (81.0-99.0) fL MCH 35.8 H (27.0-31.0) pg MCHC 32.8 L (33.0-37.0) g/dL RDW 15.8 H (11.5-14.5) % Plt Count 231 (130-400) K/uL MPV 9.9 (7.2-11.7) fL Neut % (Auto) 89.6 H (50.0-75.0) % Lymph % (Auto) 4.0 L (20.0-40.0) % [place] % (Auto) 5.0 (0.0-10.0) % Eos % (Auto) 0.6 (0.0-4.0) % Baso % (Auto) 0.8 (0.0-2.0) % Neut # 9.2 H (1.8-7.0) K/uL Lymph # 0.4 L (1.0-4.3) K/uL [place] # 0.5 (0.0-0.8) K/uL Eos # 0.1 (0.0-0.7) K/uL Baso # 0.1 (0.0-0.2) K/uL Neutrophils % (Manual) 92 H (50-75) % Band Neutrophils % 3 H (0-2) % Lymphocytes % (Manual) 3 L (20-40) % Monocytes % (Manual) 1 (0-10) % Eosinophils % (Manual) 1 (0-4) % Toxic Granulation Present Platelet Estimate Normal (NORMAL) Large Platelets Present Polychromasia Slight Poikilocytosis (manual Slight Anisocytosis (manual) Slight Macrocytosis (manual) Moderate Spherocytes Slight Target Cells Slight Tear Drop Cells Slight Ovalocytes Slight Puncture Site Rra pCO2 44 (35-45) mm/Hg pO2 157 H (80-100) mm/Hg HCO3 28.3 H (21-28) mmol/L ABG pH 7.43 (7.35-7.45) ABG Total CO2 30.6 H (22-28) mmol/L ABG O2 Saturation 100.7 H (95-98) % ABG Base Excess 4.3 H (-2.0-3.0) mmol/L ABG Hemoglobin 10.3 L (11.7-17.4) g/dL ABG Carboxyhemoglobin 2.1 H (0.5-1.5) % POC ABG HHb (Measured) -0.7 L (0.0-5.0) % ABG Methemoglobin 1.2 (0.0-3.0) % Seng Test Pos A-a O2 Difference 109.0 mm/Hg Respiratory Index 0.7 Hgb O2 Saturation 97.4 (95.0-98.0) % FiO2 45.0 % Inspiratory BiPAP 12 Expiratory BiPAP 6 Sodium 133 (132-148) mmol/L Potassium 3.8 (3.6-5.2) mmol/L Chloride 98 (98-107) mmol/L Carbon Dioxide 30 (22-30) mmol/L Anion Gap 9 L (10-20) BUN 16 (7-17) mg/dL Creatinine 0.5 L (0.7-1.2) MG/DL Est GFR ( Amer) > 60 Est GFR (Non-Af Amer) > 60 Random Glucose 65 (65-105) mg/dL Calcium 7.4 L (8.6-10.4) mg/dl Phosphorus 3.0 (2.5-4.5) mg/dL Magnesium 1.7 (1.6-2.3) mg/dL Total Bilirubin 0.6 (0.2-1.3) mg/dL AST 30 (14-36) U/L ALT 33 (9-52) U/L Alkaline Phosphatase 140 H (38-126) U/L Total Protein 5.4 L (6.3-8.3) g/dL Albumin 2.3 L (3.5-5.0) g/dL Globulin 3.0 (2.2-3.9) gm/dL Albumin/Globulin Ratio 0.8 L (1.0-2.1) Laboratory Results - last 24 hr 08/30/16 08/30/1617 06:17 06:17 10:31 WBC 10.3 RBC 2.82 L Hgb 10.1 L Hct 30.8 L MCV 109.1 H MCH 35.8 H MCHC 32.8 L RDW 15.8 H Plt Count 231 MPV 9.9 Neut % (Auto) 89.6 H Lymph % (Auto) 4.0 L [place] % (Auto) 5.0 Eos % (Auto) 0.6 Baso % (Auto) 0.8 Neut # 9.2 H Lymph # 0.4 L [place] # 0.5 Eos # 0.1 Baso # 0.1 Neutrophils % (Manual) 92 H Band Neutrophils % 3 H Lymphocytes % (Manual) 3 L Monocytes % (Manual) 1 Eosinophils % (Manual) 1 Toxic Granulation Present Platelet Estimate Normal Large Platelets Present Polychromasia Slight Poikilocytosis (manual Slight Anisocytosis (manual) Slight Macrocytosis (manual) Moderate Spherocytes Slight Target Cells Slight Tear Drop Cells Slight Ovalocytes Slight Puncture Site Rra pCO2 44 pO2 157 H HCO3 28.3 H ABG pH 7.43 ABG Total CO2 30.6 H ABG O2 Saturation 100.7 H ABG Base Excess 4.3 H ABG Hemoglobin 10.3 L ABG Carboxyhemoglobin 2.1 H POC ABG HHb (Measured) -0.7 L ABG Methemoglobin 1.2 Seng Test Pos A-a O2 Difference 109.0 Respiratory Index 0.7 Hgb O2 Saturation 97.4 FiO2 45.0 Inspiratory BiPAP 12 Expiratory BiPAP 6 Sodium 133 Potassium 3.8 Chloride 98 Carbon Dioxide 30 Anion Gap 9 L BUN 16 Creatinine 0.5 L Est GFR ( Amer) > 60 Est GFR (Non-Af Amer) > 60 Random Glucose 65 Calcium 7.4 L Phosphorus 3.0 Magnesium 1.7 Total Bilirubin 0.6 AST 30 ALT 33 Alkaline Phosphatase 140 H Total Protein 5.4 L Albumin 2.3 L Globulin 3.0 Albumin/Globulin Ratio 0.8 L Review of Systems - Review of Systems Systems not reviewed;Unavailable: Other (on BiPAP) Assessment/Plan (1) Acute respiratory failure Assessment and plan: Patient tolerating CPAP since morning CAT scan of the chest showed no pulmonary embolism but consistent with bilateral pleural effusion and severe emphysema Plan to extubate nebulizer treatment Start IV steroids Continue antibiotics Current Visit: Yes Status: Acute Comment: Status post extubation yesterday and placed on BiPAP Continue antibiotics Start feeding after NG tube placement Followup ABG and chest x-ray Patient has risk for surgery (2) CHF exacerbation Current Visit: Yes Status: Resolved (3) Closed fracture of greater trochanter of left femur Current Visit: Yes Status: Acute (4) Garden grade IV closed subcapital fracture of proximal end of right femur Current Visit: Yes Status: Acute
[2016-08-30] MEDS: Digoxin 250 mcg (0.25 mg) Tab PO SCH (17:02)
--- NOTE | 2016-08-30 17:31 | CP.PCM.PN ---
Subjective - Date & Time of Evaluation Date of Evaluation: 08/30/16 Time of Evaluation: 17:28 - Subjective Subjective: Patient extubated, but remains lethargic with a lot of secretion, requiring constant pharyngeal suctioning. Afebrile, on IV Diflucan and Primaxin. CXR: essentially unchanged. Objective - Vital Signs/Intake and Output Vital Signs (last 24 hours): Temp Pulse Resp BP Pulse Ox 98.1 F 73 28 H 129/67 100 08/30/16 16:00 08/30/16 16:00 08/30/16 16:00 08/30/16 15:16 08/30/16 16:00 Intake and Output: 08/30/16 08/30/16 06:59 18:59 Intake Total 200 545 Output Total 1020 540 Balance -820 5 - Medications Medications: Current Medications Acetaminophen (Tylenol 650mg/20.3ml Solution Ud) 650 mg PO Q6H PRN PRN Reason: temp.100.4&above;mild pain 1-3 Last Admin: 08/25/16 00:45 Dose: 650 mg Albuterol/Ipratropium (Duoneb 3 Mg/0.5 Mg (3 Ml) Ud) 3 ml INH RQ6 [facility] Last Admin: 08/30/16 13:30 Dose: 3 ml Digoxin (Lanoxin) 0.25 mg PO DAILY@1800 [facility] Last Admin: 08/30/16 17:02 Dose: 0.25 mg Furosemide (Lasix) 40 mg IVP Q48H [facility] Last Admin: 08/30/16 14:38 Dose: 40 mg Heparin Sodium (Porcine) (Heparin) 5,000 units SC Q12 [facility] Last Admin: 08/30/16 09:04 Dose: 5,000 units Fluconazole (Diflucan Iv 200 Mg/100 Ml Ns) 100 mls @ 100 mls/hr IVPB DAILY [facility] Last Admin: 08/30/16 09:32 Dose: 100 mls/hr Imipenem/Cilastatin Sodium 250 (mg/ Sodium Chloride) 100 mls @ 100 mls/hr IVPB Q8 [facility] Last Admin: 08/30/16 13:05 Dose: 100 mls/hr Lisinopril (Zestril) 5 mg PO DAILY [facility] Last Admin: 08/30/16 10:17 Dose: 5 mg Lorazepam (Ativan) 1 mg IVP Q4 PRN PRN Reason: Anxiety Last Admin: 08/26/16 14:45 Dose: 1 mg Metoprolol Tartrate (Lopressor) 25 mg PO BID [facility] Last Admin: 08/29/16 10:19 Dose: 25 mg Metoprolol Tartrate (Lopressor) 5 mg IVP Q6 [facility] Last Admin: 08/30/16 17:02 Dose: 5 mg Morphine Sulfate (Morphine) 2 mg IVP Q4 PRN PRN Reason: Pain, severe (8-10) Last Admin: 08/28/16 16:51 Dose: 2 mg Pantoprazole Sodium (Protonix Susp) 40 mg PO 06 [facility] Last Admin: 08/29/16 06:09 Dose: 40 mg Pantoprazole Sodium (Protonix Inj) 40 mg IVP 06 [facility] Last Admin: 08/30/16 05:55 Dose: 40 mg Potassium Phos/Sodium Phos (Neutra-Phos) 1 pkt PO TID [facility] Last Admin: 08/29/16 14:38 Dose: 1 pkt Spironolactone (Aldactone) 25 mg PO DAILY [facility] Last Admin: 08/30/16 10:05 Dose: 25 mg - Labs Labs: 08/30/16 06:17 08/30/16 06:17 PT 10.6 SECONDS (9.7-12.2) 08/21/16 06:11 INR 1.0 08/21/16 06:11 APTT 29 SECONDS (21-34) 08/21/16 06:11 - Constitutional Appears: Chronically Ill - Head Exam Head Exam: NORMAL INSPECTION - Eye Exam Eye Exam: Normal appearance - ENT Exam ENT Exam: Normal Exam - Neck Exam Neck Exam: Normal Inspection - Respiratory Exam Respiratory Exam: Rhonchi Additional comments: Rhonchi bilaterally. - Cardiovascular Exam Cardiovascular Exam: REGULAR RHYTHM - GI/Abdominal Exam GI & Abdominal Exam: Soft, Normal Bowel Sounds - Rectal Exam Rectal Exam: Deferred - Extremities Exam Additional comments: Decreased edema of the lower extremities. To continue IV Lasix and PO Aldactone. - Back Exam Back Exam: NORMAL INSPECTION - Neurological Exam Additional comments: Lethargic. - Skin Skin Exam: Dry, Intact, Normal Color, Warm Assessment and Plan (1) Closed fracture of greater trochanter of left femur Status: Acute (2) Dehydration Status: Resolved (3) Sepsis Status: Resolved (4) Fall Status: Acute (5) Arrhythmia Status: Resolved (6) Contusion of head Status: Acute (7) Garden grade IV closed subcapital fracture of proximal end of right femur Status: Acute (8) CHF exacerbation Status: Resolved (9) Acute respiratory failure Assessment & Plan: Extubated but with copious pulmonary secretion. Status: Acute (10) Pleural effusion, right Status: Resolved (11) Right middle lobe pneumonia Assessment & Plan: To continue IV antibiotic and antifungal. Status: Acute
[2016-08-31] MEDS: Metoprolol 1 mg/ml Inj IVP SCH ×2 (00:33→05:21)
[2016-08-31] MEDS: Albuterol-Ipratrop 3 mg / 0.5 (3 ml) UD INH SCH ×4 (01:24→20:17)
[2016-08-31] MEDS: Imipenem/Cilastatin 250 MG in Sodium Chloride 100 ML IVPB SCH ×2 (05:22→13:01)
[2016-08-31] MEDS: Pantoprazole 40 mg Susp UD PO SCH (05:31)
[2016-08-31 06:15] LABS: BASO % 0.5 % (0.0-2.0); EOS # 0.1 K/uL (0.0-0.7); HEMOGLOBIN 10.7 g/dL (11.0-16.0); LYMPH # 0.4 K/uL (1.0-4.3); LYMPH % 4.3 % (20.0-40.0); MEAN CELL VOLUME 107.1 fL (81.0-99.0); MEAN CORPUSCULAR HEMOGLOBIN 34.8 pg (27.0-31.0); MEAN CORPUSCULAR HGB CONC 32.5 g/dL (33.0-37.0); MEAN PLATELET VOLUME 9.5 fL (7.2-11.7); MONO # 0.6 K/uL (0.0-0.8); MONO % 6.2 % (0.0-10.0); NEUT # 8.9 K/uL (1.8-7.0); PLATELET COUNT 281 K/uL (130-400); RBC 3.07 Mil/uL (3.80-5.20); RED CELL DISTRIBUTION WIDTH 15.7 % (11.5-14.5); WHITE BLOOD COUNT 10.1 K/uL (4.8-10.8)
[2016-08-31 06:24] LABS: ALBUMIN 2.4 g/dL (3.5-5.0)
[2016-08-31 06:26] LABS: GFR AFRICAN-AMERICAN > 60; GFR NON-AFRICAN AMERICAN > 60
[2016-08-31 06:27] LABS: ALB/GLOB RATIO 0.8 (1.0-2.1); ALT/SGPT 32 U/L (9-52); AST/SGOT 27 U/L (14-36); BLOOD UREA NITROGEN 19 mg/dL (7-17)
[2016-08-31 06:28] LABS: CALCIUM 7.9 mg/dl (8.6-10.4); MAGNESIUM 1.8 mg/dL (1.6-2.3)
--- NOTE | 2016-08-31 06:56 | CP.PCM.PN ---
Subjective - Date & Time of Evaluation Date of Evaluation: 08/31/16 Time of Evaluation: 06:56 Objective - Vital Signs/Intake and Output Vital Signs (last 24 hours): Temp Pulse Resp BP Pulse Ox 98.1 F 80 13 105/78 100 08/31/16 04:00 08/31/16 06:17 08/31/16 06:17 08/31/16 06:17 08/31/16 06:00 Intake and Output: 08/30/16 08/31/16 18:59 06:59 Intake Total 615 620 Output Total 1540 1175 Balance -925 -555 - Medications Medications: Current Medications Acetaminophen (Tylenol 650mg/20.3ml Solution Ud) 650 mg PO Q6H PRN PRN Reason: temp.100.4&above;mild pain 1-3 Last Admin: 08/25/16 00:45 Dose: 650 mg Albuterol/Ipratropium (Duoneb 3 Mg/0.5 Mg (3 Ml) Ud) 3 ml INH RQ6 [facility] Last Admin: 08/31/16 01:24 Dose: 3 ml Digoxin (Lanoxin) 0.25 mg PO DAILY@1800 [facility] Last Admin: 08/30/16 17:02 Dose: 0.25 mg Furosemide (Lasix) 40 mg IVP Q48H [facility] Last Admin: 08/30/16 14:38 Dose: 40 mg Heparin Sodium (Porcine) (Heparin) 5,000 units SC Q12 [facility] Last Admin: 08/30/16 21:18 Dose: 5,000 units Fluconazole (Diflucan Iv 200 Mg/100 Ml Ns) 100 mls @ 100 mls/hr IVPB DAILY [facility] Last Admin: 08/30/16 09:32 Dose: 100 mls/hr Imipenem/Cilastatin Sodium 250 (mg/ Sodium Chloride) 100 mls @ 100 mls/hr IVPB Q8 [facility] Last Admin: 08/31/16 05:22 Dose: 100 mls/hr Lisinopril (Zestril) 5 mg PO DAILY [facility] Last Admin: 08/30/16 10:17 Dose: 5 mg Lorazepam (Ativan) 1 mg IVP Q4 PRN PRN Reason: Anxiety Last Admin: 08/26/16 14:45 Dose: 1 mg Metoprolol Tartrate (Lopressor) 25 mg PO BID [facility] Last Admin: 08/29/16 10:19 Dose: 25 mg Metoprolol Tartrate (Lopressor) 5 mg IVP Q6 [facility] Last Admin: 08/31/16 05:21 Dose: 5 mg Morphine Sulfate (Morphine) 2 mg IVP Q4 PRN PRN Reason: Pain, severe (8-10) Last Admin: 08/28/16 16:51 Dose: 2 mg Pantoprazole Sodium (Protonix Susp) 40 mg PO 0600 [facility] Last Admin: 08/31/16 05:31 Dose: Not Given Potassium Phos/Sodium Phos (Neutra-Phos) 1 pkt PO TID [facility] Last Admin: 08/29/16 14:38 Dose: 1 pkt Spironolactone (Aldactone) 25 mg PO DAILY [facility] Last Admin: 08/30/16 10:05 Dose: 25 mg - Labs Labs: 08/31/16 06:08 08/31/16 06:08 PT 10.6 SECONDS (9.7-12.2) 08/21/16 06:11 INR 1.0 08/21/16 06:11 APTT 29 SECONDS (21-34) 08/21/16 06:11 Assessment and Plan (1) CHF exacerbation Status: Resolved
--- NOTE | 2016-08-31 07:56 | CP.CCUPN ---
CCU Subjective - Physician Review Events Since Last Encounter (Free Text): 08/31/16 07:55 Patient was extubated 2 days ago. Currently on BiPAP. Awake and responding. No sacral decubiti noted. She has no chest pain. Mild shortness of breath. Congested lungs noted. On examination: Vital signs stable. Chest bilateral rales noted regular heart sound nontender abdomen extremities edema noted bilaterally MSW alert awake oriented. Patient's labs reviewed Low potassium level noted. Medications adjusted. Patient is currently awaiting for surgical intervention for the right hip Assessment and recommendation: 76-year-old female with a history of COPD, CAD osteoporosis and osteoarthritis bilateral hip fracture following a fall. Patient had at least 2 episodes of acute respiratory failure secondary to COPD, aspiration. Awaiting surgical intervention. Patient is medically stable at this time. Patient is also needs a possible intubation and a respiratory management to the surgical intervention. We'll follow the patient Subjective (Free Text): 08/24/16 17:45 Patient was intubated and placed on ventilator CCU Objective - Vital Signs / Intake & Output Vital Signs (Last 4 hours): Vital Signs Temp Pulse Resp BP Pulse Ox 08/31/16 07:17 97 H 22 118/65 94 L 08/31/16 07:00 77 19 97 08/31/16 06:17 80 13 105/78 08/31/16 06:00 82 21 100 08/31/16 05:16 92 H 25 H 94/75 L 100 08/31/16 05:00 96 H 24 100 08/31/16 04:16 115 H 16 131/70 99 08/31/16 04:00 98.1 F 92 H 20 100 Intake and Output (Last 8hrs): Intake & Output 08/30/16 08/31/16 08/31/16 22:59 06:59 14:59 Intake Total 380 380 35 Output Total 1640 675 Balance -1260 -295 35 Weight 116 lb 3 oz Intake: Intake, IV Amount 100 100 Right PICC 100 100 Tube Feeding 280 280 35 Output: Urine 1640 675 Urethral (Martinez) 1640 675 Other: # Bowel Movements 0 1 0 - Physical Exam Head: Positive for: Normocephalic, Ecchymosis, Other (Contusions over left side of face healing). Negative for: Atraumatic Pupils: Positive for: PERRL Extroacular Muscles: Positive for: Other (opens eyes to name) Conjunctiva: Positive for: Normal. Negative for: Injected, Icteric Mouth: Positive for: Dry, Other (ET tube in place- secretions noted) Neck: Negative for: JVD, Bruit Respiratory/Chest: Positive for: Good Air Exchange, Decreased Breath Sounds ( bibasilar R > L), Rales (bibasilar ), Other (intubated on vent). Negative for: Clear to Auscultation, Respiratory Distress, Accessory Muscle Use, Wheezes, Retracting, Rhonchi Cardiovascular: Positive for: Normal S1, S2, Peripheal Pulses Present, Tachycardic. Negative for: Murmurs, Irregular Rhythm Abdomen: Positive for: Normal Bowel Sounds. Negative for: Tenderness, Distention, Peritoneal Signs, Rebound, Guarding Upper Extremity: Positive for: Normal Inspection, NORMAL PULSES. Negative for: Edema Lower Extremity: Positive for: NORMAL PULSES, Deformity (right leg shortened and externally rotated ), Other (grimaces when b/l hips palpated; offloading boots secure). Negative for: Normal Inspection, Edema, Normal ROM Neurological: Positive for: Other (responds to name and grimaces) Skin: Positive for: Warm, Dry, Normal Color, Other (b/l ecchymosis on face noted ). Negative for: Rashes Psychiatric: Positive for: Alert (responds to name ) - Medications Active Medications: Active Medications Generic Name Dose Route Start Last Admin Trade Name Freq PRN Reason Stop Dose Admin Acetaminophen 650 mg 08/14/16 23:50 08/25/16 00:45 Tylenol 650mg/20.3ml Solution Ud PO 650 mg Q6H PRN Administration temp.100.4&above;mild pain 1-3 Albuterol/Ipratropium 3 ml 08/16/16 14:00 08/31/16 07:44 Duoneb 3 Mg/0.5 Mg (3 Ml) Ud INH 3 ml RQ6 [facility] Administration Digoxin 0.25 mg 08/30/16 18:00 08/30/16 17:02 Lanoxin PO 0.25 mg DAILY@1800 [facility] Administration Furosemide 40 mg 08/28/16 15:38 08/30/16 14:38 Lasix IVP 40 mg Q48H [facility] Administration Heparin Sodium (Porcine) 5,000 units 08/28/16 22:00 08/30/16 21:18 Heparin SC 5,000 units Q12 [facility] Administration Fluconazole 100 mls @ 100 mls/hr 08/27/16 10:15 08/30/16 09:32 Diflucan Iv 200 Mg/100 Ml Ns IVPB 100 mls/hr DAILY [facility] Administration Imipenem/Cilastatin Sodium 250 100 mls @ 100 mls/hr 08/30/16 14:00 08/31/16 05:22 mg/ Sodium Chloride IVPB 100 mls/hr Q8 [facility] Administration Lisinopril 5 mg 08/17/16 10:00 08/30/16 10:17 Zestril PO 5 mg DAILY [facility] Administration Metoprolol Tartrate 25 mg 08/12/16 18:00 08/29/16 10:19 Lopressor PO 25 mg BID [facility] Administration Pantoprazole Sodium 40 mg 08/27/16 06:00 08/31/16 05:31 Protonix Susp PO Not Given 0600 [facility] - Patient Studies Lab Studies: Microbiology Studies 08/29/16 12:00 Urine Culture - Preliminary Urine,Martinez Gram Positive Cocci Lab Studies 08/31/16 08/31/16 08/30/16 Range/Units 06:08 06:08 16:26 WBC 10.1 (4.8-10.8) K/uL RBC 3.07 L (3.80-5.20) Mil/uL Hgb 10.7 L (11.0-16.0) g/dL Hct 32.8 L (34.0-47.0) % MCV 107.1 H D (81.0-99.0) fL MCH 34.8 H (27.0-31.0) pg MCHC 32.5 L (33.0-37.0) g/dL RDW 15.7 H (11.5-14.5) % Plt Count 281 (130-400) K/uL MPV 9.5 (7.2-11.7) fL Neut % (Auto) 88.0 H (50.0-75.0) % Lymph % (Auto) 4.3 L (20.0-40.0) % Sauk % (Auto) 6.2 (0.0-10.0) % Eos % (Auto) 1.0 (0.0-4.0) % Baso % (Auto) 0.5 (0.0-2.0) % Neut # 8.9 H (1.8-7.0) K/uL Lymph # 0.4 L (1.0-4.3) K/uL Sauk # 0.6 (0.0-0.8) K/uL Eos # 0.1 (0.0-0.7) K/uL Baso # 0.0 (0.0-0.2) K/uL Neutrophils % (Manual) (50-75) % Band Neutrophils % (0-2) % Lymphocytes % (Manual) (20-40) % Monocytes % (Manual) (0-10) % Eosinophils % (Manual) (0-4) % Toxic Granulation Platelet Estimate (NORMAL) Large Platelets Polychromasia Poikilocytosis (manual Anisocytosis (manual) Macrocytosis (manual) Spherocytes Target Cells Tear Drop Cells Ovalocytes Puncture Site pCO2 (35-45) mm/Hg pO2 (80-100) mm/Hg HCO3 (21-28) mmol/L ABG pH (7.35-7.45) ABG Total CO2 (22-28) mmol/L ABG O2 Saturation (95-98) % ABG Base Excess (-2.0-3.0) mmol/L ABG Hemoglobin (11.7-17.4) g/dL ABG Carboxyhemoglobin (0.5-1.5) % POC ABG HHb (Measured) (0.0-5.0) % ABG Methemoglobin (0.0-3.0) % Seng Test A-a O2 Difference mm/Hg Respiratory Index Hgb O2 Saturation (95.0-98.0) % FiO2 % Inspiratory BiPAP Expiratory BiPAP Sodium 133 (132-148) mmol/L Potassium 3.8 (3.6-5.2) mmol/L Chloride 95 L (98-107) mmol/L Carbon Dioxide 34 H (22-30) mmol/L Anion Gap 8 L (10-20) BUN 19 H (7-17) mg/dL Creatinine 0.5 L (0.7-1.2) MG/DL Est GFR ( Amer) > 60 Est GFR (Non-Af Amer) > 60 POC Glucose (mg/dL) 83 (65-110) mg/dL Random Glucose 108 H (65-105) mg/dL Calcium 7.9 L (8.6-10.4) mg/dl Phosphorus 2.7 (2.5-4.5) mg/dL Magnesium 1.8 (1.6-2.3) mg/dL Total Bilirubin 0.5 (0.2-1.3) mg/dL AST 27 (14-36) U/L ALT 32 (9-52) U/L Alkaline Phosphatase 176 H D (38-126) U/L Total Protein 5.6 L (6.3-8.3) g/dL Albumin 2.4 L (3.5-5.0) g/dL Globulin 3.2 (2.2-3.9) gm/dL Albumin/Globulin Ratio 0.8 L (1.0-2.1) 08/30/16 08/30/16 Range/Units 10:31 06:17 WBC (4.8-10.8) K/uL RBC (3.80-5.20) Mil/uL Hgb (11.0-16.0) g/dL Hct (34.0-47.0) % MCV (81.0-99.0) fL MCH (27.0-31.0) pg MCHC (33.0-37.0) g/dL RDW (11.5-14.5) % Plt Count (130-400) K/uL MPV (7.2-11.7) fL Neut % (Auto) (50.0-75.0) % Lymph % (Auto) (20.0-40.0) % Sauk % (Auto) (0.0-10.0) % Eos % (Auto) (0.0-4.0) % Baso % (Auto) (0.0-2.0) % Neut # (1.8-7.0) K/uL Lymph # (1.0-4.3) K/uL Sauk # (0.0-0.8) K/uL Eos # (0.0-0.7) K/uL Baso # (0.0-0.2) K/uL Neutrophils % (Manual) 92 H (50-75) % Band Neutrophils % 3 H (0-2) % Lymphocytes % (Manual) 3 L (20-40) % Monocytes % (Manual) 1 (0-10) % Eosinophils % (Manual) 1 (0-4) % Toxic Granulation Present Platelet Estimate Normal (NORMAL) Large Platelets Present Polychromasia Slight Poikilocytosis (manual Slight Anisocytosis (manual) Slight Macrocytosis (manual) Moderate Spherocytes Slight Target Cells Slight Tear Drop Cells Slight Ovalocytes Slight Puncture Site Rra pCO2 44 (35-45) mm/Hg pO2 157 H (80-100) mm/Hg HCO3 28.3 H (21-28) mmol/L ABG pH 7.43 (7.35-7.45) ABG Total CO2 30.6 H (22-28) mmol/L ABG O2 Saturation 100.7 H (95-98) % ABG Base Excess 4.3 H (-2.0-3.0) mmol/L ABG Hemoglobin 10.3 L (11.7-17.4) g/dL ABG Carboxyhemoglobin 2.1 H (0.5-1.5) % POC ABG HHb (Measured) -0.7 L (0.0-5.0) % ABG Methemoglobin 1.2 (0.0-3.0) % Seng Test Pos A-a O2 Difference 109.0 mm/Hg Respiratory Index 0.7 Hgb O2 Saturation 97.4 (95.0-98.0) % FiO2 45.0 % Inspiratory BiPAP 12 Expiratory BiPAP 6 Sodium (132-148) mmol/L Potassium (3.6-5.2) mmol/L Chloride (98-107) mmol/L Carbon Dioxide (22-30) mmol/L Anion Gap (10-20) BUN (7-17) mg/dL Creatinine (0.7-1.2) MG/DL Est GFR ( Amer) Est GFR (Non-Af Amer) POC Glucose (mg/dL) (65-110) mg/dL Random Glucose (65-105) mg/dL Calcium (8.6-10.4) mg/dl Phosphorus (2.5-4.5) mg/dL Magnesium (1.6-2.3) mg/dL Total Bilirubin (0.2-1.3) mg/dL AST (14-36) U/L ALT (9-52) U/L Alkaline Phosphatase (38-126) U/L Total Protein (6.3-8.3) g/dL Albumin (3.5-5.0) g/dL Globulin (2.2-3.9) gm/dL Albumin/Globulin Ratio (1.0-2.1) Laboratory Results - last 24 hr 08/30/16 08/30/16 08/30/16 06:17 10:31 16:26 WBC RBC Hgb Hct MCV MCH MCHC RDW Plt Count MPV Neut % (Auto) Lymph % (Auto) Sauk % (Auto) Eos % (Auto) Baso % (Auto) Neut # Lymph # [place] # Eos # Baso # Neutrophils % (Manual) 92 H Band Neutrophils % 3 H Lymphocytes % (Manual) 3 L Monocytes % (Manual) 1 Eosinophils % (Manual) 1 Toxic Granulation Present Platelet Estimate Normal Large Platelets Present Polychromasia Slight Poikilocytosis (manual Slight Anisocytosis (manual) Slight Macrocytosis (manual) Moderate Spherocytes Slight Target Cells Slight Tear Drop Cells Slight Ovalocytes Slight Puncture Site Rra pCO2 44 pO2 157 H HCO3 28.3 H ABG pH 7.43 ABG Total CO2 30.6 H ABG O2 Saturation 100.7 H ABG Base Excess 4.3 H ABG Hemoglobin 10.3 L ABG Carboxyhemoglobin 2.1 H POC ABG HHb (Measured) -0.7 L ABG Methemoglobin 1.2 Seng Test Pos A-a O2 Difference 109.0 Respiratory Index 0.7 Hgb O2 Saturation 97.4 FiO2 45.0 Inspiratory BiPAP 12 Expiratory BiPAP 6 Sodium Potassium Chloride Carbon Dioxide Anion Gap BUN Creatinine Est GFR ( Amer) Est GFR (Non-Af Amer) POC Glucose (mg/dL) 83 Random Glucose Calcium Phosphorus Magnesium Total Bilirubin AST ALT Alkaline Phosphatase Total Protein Albumin Globulin Albumin/Globulin Ratio 08/31/16 08/31/16 06:08 06:08 WBC 10.1 RBC 3.07 L Hgb 10.7 L Hct 32.8 L MCV 107.1 H D MCH 34.8 H MCHC 32.5 L RDW 15.7 H Plt Count 281 MPV 9.5 Neut % (Auto) 88.0 H Lymph % (Auto) 4.3 L Sauk % (Auto) 6.2 Eos % (Auto) 1.0 Baso % (Auto) 0.5 Neut # 8.9 H Lymph # 0.4 L Sauk # 0.6 Eos # 0.1 Baso # 0.0 Neutrophils % (Manual) Band Neutrophils % Lymphocytes % (Manual) Monocytes % (Manual) Eosinophils % (Manual) Toxic Granulation Platelet Estimate Large Platelets Polychromasia Poikilocytosis (manual Anisocytosis (manual) Macrocytosis (manual) Spherocytes Target Cells Tear Drop Cells Ovalocytes Puncture Site pCO2 pO2 HCO3 ABG pH ABG Total CO2 ABG O2 Saturation ABG Base Excess ABG Hemoglobin ABG Carboxyhemoglobin POC ABG HHb (Measured) ABG Methemoglobin Seng Test A-a O2 Difference Respiratory Index Hgb O2 Saturation FiO2 Inspiratory BiPAP Expiratory BiPAP Sodium 133 Potassium 3.8 Chloride 95 L Carbon Dioxide 34 H Anion Gap 8 L BUN 19 H Creatinine 0.5 L Est GFR ( Amer) > 60 Est GFR (Non-Af Amer) > 60 POC Glucose (mg/dL) Random Glucose 108 H Calcium 7.9 L Phosphorus 2.7 Magnesium 1.8 Total Bilirubin 0.5 AST 27 ALT 32 Alkaline Phosphatase 176 H D Total Protein 5.6 L Albumin 2.4 L Globulin 3.2 Albumin/Globulin Ratio 0.8 L Assessment/Plan (1) Arrhythmia Current Visit: Yes Status: Resolved (2) Closed fracture of greater trochanter of left femur Assessment and plan: 76-year-old female with history of osteoporosis, osteoarthritis, severe weakness and a recurrent fall, complicated with the bilateral hip fracture admitted to the hospital. Patient is currently having significant the weakness, and also associated pain secondary to the pain and fracture. Patient had a history of recurrent fall. Underlying neurological condition cannot be ruled out. She is at very high risk for DVT and pulmonary embolism. Currently on anticoagulation. Patient will need a definite treatment for the bilateral hip fracture. Awaiting cardiology clearance. Currently mobility is restricted because of the severe pain. pain control. We'll continue the current treatment and will follow the patient Patient surgical intervention pending at this time. Likely now have recurrent aspiration pneumonia, respiratory failure. On ventilator. Continue the supportive care. Patient is at high risk for mortality, continue the treatment X-ray of the chest showing evidence of worsening infiltrate on the right lung. Possible hospital-acquired pneumonia, ventilator acquired pneumonia. We will get a sputum culture. We'll start the patient on antibiotic. DVT and GI prophylaxis. I spoke to the patient's sister on the phone, explained, she wanted everything to be done. Overall prognosis very poor, patient has a high mortality given the complex medical problems. Current Visit: Yes Status: Acute (3) Contusion of head Current Visit: Yes Status: Acute (4) Fall Current Visit: Yes Status: Acute
[2016-08-31] MEDS: Fluconazole IV 200mg/100 ml NS 100 ML IVPB SCH (09:17)
[2016-08-31 10:14] LABS: BANDS 3 % (0-2); BASOPHIL 2 % (0-2); LYMPHOCYTE 4 % (20-40); MONOCYTE 7 % (0-10); NEUTROPHIL 84 % (50-75); PLATELET ESTIMATE NORMAL (NORMAL); TOTAL CELLS COUNTED 100
[2016-08-31 10:15] LABS: ANISOCYTOSIS SLIGHT; LARGE PLATELETS PRESENT; OVALOCYTES SLIGHT; POIKILOCYTOSIS SLIGHT; SCHISTOCYTES SLIGHT
[2016-08-31 10:17] LABS: TEARDROP CELLS SLIGHT
--- NOTE | 2016-08-31 14:01 | CP.PCM.PN ---
Subjective - Date & Time of Evaluation Date of Evaluation: 08/31/16 Time of Evaluation: 08:00 - Subjective Subjective: growing VRE in urine- sens to tygacil extubated nad afebrile U/A is consistent with UTI will add Tygacil Objective - Vital Signs/Intake and Output Vital Signs (last 24 hours): Temp Pulse Resp BP Pulse Ox 97.8 F 75 31 H 99/43 L 99 08/31/16 12:00 08/31/16 12:17 08/31/16 12:17 08/31/16 12:17 08/31/16 12:17 Intake and Output: 08/31/16 08/31/16 06:59 18:59 Intake Total 620 440 Output Total 1175 230 Balance -555 210 - Medications Medications: Current Medications Acetaminophen (Tylenol 650mg/20.3ml Solution Ud) 650 mg PO Q6H PRN PRN Reason: temp.100.4&above;mild pain 1-3 Last Admin: 08/25/16 00:45 Dose: 650 mg Albuterol/Ipratropium (Duoneb 3 Mg/0.5 Mg (3 Ml) Ud) 3 ml INH RQ6 [facility] Last Admin: 08/31/16 13:42 Dose: 3 ml Digoxin (Lanoxin) 0.25 mg PO DAILY@1800 [facility] Last Admin: 08/30/16 17:02 Dose: 0.25 mg Furosemide (Lasix) 40 mg IVP Q48H [facility] Last Admin: 08/30/16 14:38 Dose: 40 mg Heparin Sodium (Porcine) (Heparin) 5,000 units SC Q12 [facility] Last Admin: 08/31/16 09:19 Dose: 5,000 units Fluconazole (Diflucan Iv 200 Mg/100 Ml Ns) 100 mls @ 100 mls/hr IVPB DAILY [facility] Last Admin: 08/31/16 09:17 Dose: 100 mls/hr Imipenem/Cilastatin Sodium 250 (mg/ Sodium Chloride) 100 mls @ 100 mls/hr IVPB Q8 [facility] Last Admin: 08/31/16 13:01 Dose: 100 mls/hr Lisinopril (Zestril) 5 mg PO DAILY [facility] Last Admin: 08/31/16 09:20 Dose: 5 mg Metoprolol Tartrate (Lopressor) 25 mg PO BID [facility] Last Admin: 08/31/16 09:19 Dose: 25 mg Pantoprazole Sodium (Protonix Susp) 40 mg PO 0600 [facility] Last Admin: 08/31/16 05:31 Dose: Not Given - Labs Labs: 08/31/16 06:08 08/31/16 06:08 PT 10.6 SECONDS (9.7-12.2) 08/21/16 06:11 INR 1.0 08/21/16 06:11 APTT 29 SECONDS (21-34) 08/21/16 06:11 - Constitutional Appears: Non-toxic, Cachectic, Chronically Ill - Head Exam Head Exam: NORMOCEPHALIC - Eye Exam Eye Exam: PERRL. absent: Scleral icterus - ENT Exam ENT Exam: Mucous Membranes Dry - Neck Exam Neck Exam: absent: Lymphadenopathy - Respiratory Exam Respiratory Exam: Decreased Breath Sounds, Rhonchi - Cardiovascular Exam Cardiovascular Exam: REGULAR RHYTHM, +S1, +S2 - GI/Abdominal Exam GI & Abdominal Exam: Distended, Soft. absent: Tenderness - Rectal Exam Rectal Exam: Deferred - Exam Exam: NORMAL INSPECTION - Extremities Exam Extremities Exam: absent: Pedal Edema - Back Exam Back Exam: absent: CVA tenderness (L), CVA tenderness (R) - Neurological Exam Neurological Exam: Alert, Awake, Oriented x3 Assessment and Plan (1) Acute respiratory failure Status: Acute (2) Closed fracture of greater trochanter of left femur Status: Acute (3) Contusion of head Status: Acute (4) Fall Status: Acute (5) Garden grade IV closed subcapital fracture of proximal end of right femur Status: Acute (6) Pelvic fracture Status: Acute (7) Pleural effusion due to CHF (congestive heart failure) Status: Acute (8) Right middle lobe pneumonia Status: Acute (9) CHF (NYHA class III, ACC/AHA stage C) Status: Chronic (10) Degenerative joint disease of right hip Status: Chronic (11) Multifocal atrial tachycardia Status: Chronic (12) Arrhythmia Status: Resolved (13) CHF exacerbation Status: Resolved (14) Dehydration Status: Resolved (15) Pleural effusion, right Status: Resolved (16) Sepsis Status: Resolved - Assessment and Plan (Free Text) Assessment: will add tygacil d/c jones if possible
[2016-08-31] MEDS: Digoxin 250 mcg (0.25 mg) Tab PO SCH (17:03)
--- NOTE | 2016-08-31 21:14 | CP.PCM.PN ---
Subjective - Date & Time of Evaluation Date of Evaluation: 08/31/16 Time of Evaluation: 21:11 - Subjective Subjective: Patient on BIPAP, extubated, but remains very lethargic with copious secretions. On Tigacyclin for VRE in the urine. Needs isolation if transferred to the floor.On NGT feeding because of poor appetite and recurrent aspiration. Objective - Vital Signs/Intake and Output Vital Signs (last 24 hours): Temp Pulse Resp BP Pulse Ox 98.3 F 85 32 H 125/78 100 08/31/16 19:53 08/31/16 20:18 08/31/16 20:00 08/31/16 19:16 08/31/16 20:00 Intake and Output: 08/31/16 09/01/16 18:59 06:59 Intake Total 910 70 Output Total 430 80 Balance 480 -10 - Medications Medications: Current Medications Acetaminophen (Tylenol 650mg/20.3ml Solution Ud) 650 mg PO Q6H PRN PRN Reason: temp.100.4&above;mild pain 1-3 Last Admin: 08/25/16 00:45 Dose: 650 mg Albuterol/Ipratropium (Duoneb 3 Mg/0.5 Mg (3 Ml) Ud) 3 ml INH RQ6 [facility] Last Admin: 08/31/16 20:17 Dose: 3 ml Digoxin (Lanoxin) 0.25 mg PO DAILY@1800 [facility] Last Admin: 08/31/16 17:03 Dose: 0.25 mg Furosemide (Lasix) 40 mg IVP Q48H [facility] Last Admin: 08/30/16 14:38 Dose: 40 mg Heparin Sodium (Porcine) (Heparin) 5,000 units SC Q12 [facility] Last Admin: 08/31/16 09:19 Dose: 5,000 units Fluconazole (Diflucan Iv 200 Mg/100 Ml Ns) 100 mls @ 100 mls/hr IVPB DAILY [facility] Last Admin: 08/31/16 09:17 Dose: 100 mls/hr Tigecycline 50 mg/ Dextrose 100 mls @ 100 mls/hr IVPB Q12H [facility] Lisinopril (Zestril) 5 mg PO DAILY [facility] Last Admin: 08/31/16 09:20 Dose: 5 mg Metoprolol Tartrate (Lopressor) 25 mg PO BID [facility] Last Admin: 06/25/17 17:03 Dose: 25 mg Pantoprazole Sodium (Protonix Susp) 40 mg PO 0600 [facility] Last Admin: 08/31/16 05:31 Dose: Not Given - Labs Labs: 08/31/16 06:08 08/31/16 06:08 PT 10.6 SECONDS (9.7-12.2) 08/21/16 06:11 INR 1.0 08/21/16 06:11 APTT 29 SECONDS (21-34) 08/21/16 06:11 - Constitutional Appears: No Acute Distress, Chronically Ill - Head Exam Head Exam: NORMAL INSPECTION - Eye Exam Eye Exam: Normal appearance - ENT Exam ENT Exam: Normal Exam - Neck Exam Neck Exam: Normal Inspection - Respiratory Exam Additional comments: Rhonchi heard in both lung kerns. - Cardiovascular Exam Cardiovascular Exam: REGULAR RHYTHM - GI/Abdominal Exam GI & Abdominal Exam: Soft, Normal Bowel Sounds - Rectal Exam Rectal Exam: Deferred - Extremities Exam Additional comments: Decreased edema of the lower extremities. Right leg external rotation. - Back Exam Back Exam: NORMAL INSPECTION - Neurological Exam Additional comments: Very lethargic. - Skin Skin Exam: Dry, Intact, Normal Color Assessment and Plan (1) Closed fracture of greater trochanter of left femur Status: Acute (2) Dehydration Status: Resolved (3) Sepsis Status: Resolved (4) Fall Status: Acute (5) Arrhythmia Status: Resolved (6) Contusion of head Status: Acute (7) Garden grade IV closed subcapital fracture of proximal end of right femur Status: Acute (8) CHF exacerbation Status: Resolved (9) Acute respiratory failure Status: Acute (10) Pleural effusion, right Status: Resolved (11) Right middle lobe pneumonia Assessment & Plan: To continue IV Diflucan, IV primaxin and IV Tigacycline. Status: Acute (12) VRE (vancomycin resistant enterococcus) culture positive Status: Acute
--- NOTE | 2016-08-31 22:39 | CP.PCM.PN ---
Subjective - Date & Time of Evaluation Date of Evaluation: 08/31/16 Time of Evaluation: 22:29 - Subjective Subjective: The Patient was seen and examined at the bedside, Medical records reviewed, all clinical/lab/hemodynamic/radiographic data were reviewed and management issues were discussed and formulated, 76 Y/O F with multiple medical and comorbid conditions including Acute respiratory failure sec to aspiration pneumonia and pleural effusion, Severe sepsis ( VRE in urine and Yeast in tracheal aspirate) and nonischemic cardiomyopathy with EF 15-20%. extubated but remains BIPAP dependent with tenuous respiratory status and copious secretions. Medical management and treatment plans was discussed with Tamar Elena and Jennifer , will hold of surgical intervention for the fracture of proximal end of right femur for now till medically optimized. Objective - Vital Signs/Intake and Output Vital Signs (last 24 hours): Temp Pulse Resp BP Pulse Ox 98.3 F 83 24 123/70 99 08/31/16 19:53 08/31/16 22:00 08/31/16 22:00 08/31/16 21:16 08/31/16 22:00 Intake and Output: 08/31/16 09/01/16 18:59 06:59 Intake Total 910 140 Output Total 430 155 Balance 480 -15 - Medications Medications: Current Medications Acetaminophen (Tylenol 650mg/20.3ml Solution Ud) 650 mg PO Q6H PRN PRN Reason: temp.100.4&above;mild pain 1-3 Last Admin: 08/25/16 00:45 Dose: 650 mg Albuterol/Ipratropium (Duoneb 3 Mg/0.5 Mg (3 Ml) Ud) 3 ml INH RQ6 [facility] Last Admin: 08/31/16 20:17 Dose: 3 ml Digoxin (Lanoxin) 0.25 mg PO DAILY@1800 [facility] Last Admin: 08/31/16 17:03 Dose: 0.25 mg Furosemide (Lasix) 40 mg IVP Q48H [facility] Last Admin: 08/30/16 14:38 Dose: 40 mg Heparin Sodium (Porcine) (Heparin) 5,000 units SC Q12 [facility] Last Admin: 08/31/16 22:00 Dose: 5,000 units Fluconazole (Diflucan Iv 200 Mg/100 Ml Ns) 100 mls @ 100 mls/hr IVPB DAILY [facility] Last Admin: 06/25/17 09:17 Dose: 100 mls/hr Tigecycline 50 mg/ Dextrose 100 mls @ 100 mls/hr IVPB Q12H [facility] Lisinopril (Zestril) 5 mg PO DAILY [facility] Last Admin: 08/31/16 09:20 Dose: 5 mg Metoprolol Tartrate (Lopressor) 25 mg PO BID [facility] Last Admin: 08/31/16 17:03 Dose: 25 mg Pantoprazole Sodium (Protonix Susp) 40 mg PO 0600 [facility] Last Admin: 08/31/16 05:31 Dose: Not Given - Labs Labs: 08/31/16 06:08 08/31/16 06:08 PT 10.6 SECONDS (9.7-12.2) 08/21/16 06:11 INR 1.0 08/21/16 06:11 APTT 29 SECONDS (21-34) 08/21/16 06:11 - Head Exam Head Exam: ATRAUMATIC, NORMAL INSPECTION, NORMOCEPHALIC - Eye Exam Eye Exam: absent: Conjunctival injection - Respiratory Exam Respiratory Exam: Decreased Breath Sounds, Rhonchi. absent: Rales, Wheezes - Cardiovascular Exam Cardiovascular Exam: Irregular Rhythm. absent: Bradycardia, Tachycardia - GI/Abdominal Exam GI & Abdominal Exam: Normal Bowel Sounds. absent: Distended, Firm Assessment and Plan (1) Acute respiratory failure Status: Acute (2) Closed fracture of greater trochanter of left femur Status: Acute (3) Right middle lobe pneumonia Status: Acute (4) Status post thoracentesis Status: Acute (5) VRE (vancomycin resistant enterococcus) culture positive Status: Acute
[2016-09-01] MEDS: Albuterol-Ipratrop 3 mg / 0.5 (3 ml) UD INH SCH ×4 (01:18→19:54)
[2016-09-01] MEDS ORDERED: Tigecycline 50 MG in Dextrose 5% In Water 100 ML IVPB SCH (02:00)
[2016-09-01 05:49] LABS: ARTERIAL BLOOD GAS HCO3 34.2 mmol/L (21-28); ARTERIAL BLOOD GAS HEMOGLOBIN 11.1 g/dL (11.7-17.4); ARTERIAL BLOOD GAS O2 SAT 98.5 % (95-98); ARTERIAL BLOOD GAS PCO2 61 mm/Hg (35-45); ARTERIAL BLOOD GAS PH 7.41 (7.35-7.45); ARTERIAL BLOOD GAS PO2 80 mm/Hg (80-100); ARTERIAL BLOOD GAS TCO2 40.6 mmol/L (22-28)
[2016-09-01] MEDS: Pantoprazole 40 mg Susp UD PO SCH (05:54)
[2016-09-01 06:20] LABS: BASO # 0.1 K/uL (0.0-0.2); BASO % 0.6 % (0.0-2.0); EOS # 0.1 K/uL (0.0-0.7); EOS % 0.5 % (0.0-4.0); HEMOGLOBIN 10.8 g/dL (11.0-16.0); LYMPH # 0.4 K/uL (1.0-4.3); LYMPH % 3.2 % (20.0-40.0); MEAN CELL VOLUME 107.7 fL (81.0-99.0); MEAN CORPUSCULAR HEMOGLOBIN 35.1 pg (27.0-31.0); MEAN CORPUSCULAR HGB CONC 32.6 g/dL (33.0-37.0); MEAN PLATELET VOLUME 10.2 fL (7.2-11.7); MONO # 0.8 K/uL (0.0-0.8); MONO % 6.3 % (0.0-10.0); NEUT # 11.8 K/uL (1.8-7.0); NEUT % 89.4 % (50.0-75.0); PLATELET COUNT 294 K/uL (130-400); RBC 3.07 Mil/uL (3.80-5.20); RED CELL DISTRIBUTION WIDTH 16.2 % (11.5-14.5); WHITE BLOOD COUNT 13.2 K/uL (4.8-10.8)
[2016-09-01 06:34] LABS: ALBUMIN 2.4 g/dL (3.5-5.0)
[2016-09-01 06:37] LABS: AST/SGOT 25 U/L (14-36); GFR AFRICAN-AMERICAN > 60; GFR NON-AFRICAN AMERICAN > 60
[2016-09-01 06:38] LABS: ALB/GLOB RATIO 0.8 (1.0-2.1); ALT/SGPT 34 U/L (9-52); BLOOD UREA NITROGEN 27 mg/dL (7-17); CALCIUM 7.8 mg/dl (8.6-10.4); MAGNESIUM 1.8 mg/dL (1.6-2.3)
[2016-09-01 07:19] LABS: BANDS 1 % (0-2); EOSINOPHIL 1 % (0-4); LYMPHOCYTE 5 % (20-40); MONOCYTE 7 % (0-10); NEUTROPHIL 86 % (50-75); PLATELET ESTIMATE NORMAL (NORMAL); TOTAL CELLS COUNTED 100
--- NOTE | 2016-09-01 07:26 | CP.CCUPN ---
CCU Subjective - Physician Review Subjective (Free Text): 09/01/16 08:26 Patient seen and examined at bedside. No acute events overnight as per nursing and patient was afebrile overnight. Extubated 08/29 but patient has been unable to come off of BiPAP. Patient is SOB on BiPAP and needs frequent suctioning. Patient is awake and responsive but is unable to speak; nods her head yes when asked if she is very tired but denies any pain. Tolerating feeds throuhg NGT at @35cc/hr Complete ROS unobtainable CCU Objective - Vital Signs / Intake & Output Vital Signs (Last 4 hours): Vital Signs Pulse Resp BP Pulse Ox 09/01/16 06:16 89 27 H 125/72 99 09/01/16 06:00 86 21 118/44 L 100 09/01/16 05:56 87 09/01/16 05:16 75 21 118/44 L 100 09/01/16 05:00 87 32 H 100 09/01/16 04:16 69 27 H 117/63 98 09/01/16 04:00 75 25 H 99 Intake and Output (Last 8hrs): Intake & Output 08/31/16 09/01/16 09/01/16 22:59 06:59 14:59 Intake Total 440 440 Output Total 270 180 Balance 170 260 Weight 119 lb Intake: Intake, IV Amount 100 100 Right PICC 100 100 Tube Feeding 280 315 Other 60 25 Output: Urine 270 180 Urethral (Martinez) 270 180 Other: # Bowel Movements 0 1 - Physical Exam Head: Positive for: Normocephalic, Ecchymosis, Other (Contusions over left side of face healing). Negative for: Atraumatic Pupils: Positive for: PERRL Extroacular Muscles: Positive for: Other (opens eyes to name) Conjunctiva: Positive for: Normal. Negative for: Injected, Icteric Mouth: Positive for: Dry, Other (ET tube in place- secretions noted) Neck: Negative for: JVD, Bruit Respiratory/Chest: Positive for: Good Air Exchange, Decreased Breath Sounds ( bibasilar R > L), Rales (bibasilar ), Other (intubated on vent). Negative for: Clear to Auscultation, Respiratory Distress, Accessory Muscle Use, Wheezes, Retracting, Rhonchi Cardiovascular: Positive for: Normal S1, S2, Peripheal Pulses Present, Tachycardic. Negative for: Murmurs, Irregular Rhythm Abdomen: Positive for: Normal Bowel Sounds. Negative for: Tenderness, Distention, Peritoneal Signs, Rebound, Guarding Upper Extremity: Positive for: Normal Inspection, NORMAL PULSES. Negative for: Edema Lower Extremity: Positive for: NORMAL PULSES, Deformity (right leg shortened and externally rotated ), Other (grimaces when b/l hips palpated; offloading boots secure). Negative for: Normal Inspection, Edema, Normal ROM Neurological: Positive for: Other (responds to name and grimaces) Skin: Positive for: Warm, Dry, Normal Color, Other (b/l ecchymosis on face noted ). Negative for: Rashes Psychiatric: Positive for: Alert (responds to name ) - Medications Active Medications: Active Medications Generic Name Dose Route Start Last Admin Trade Name Freq PRN Reason Stop Dose Admin Acetaminophen 650 mg 08/14/16 23:50 08/25/16 00:45 Tylenol 650mg/20.3ml Solution Ud PO 650 mg Q6H PRN Administration temp.100.4&above;mild pain 1-3 Albuterol/Ipratropium 3 ml 08/16/16 14:00 09/01/16 01:18 Duoneb 3 Mg/0.5 Mg (3 Ml) Ud INH 3 ml RQ6 [facility] Administration Digoxin 0.25 mg 08/30/16 18:00 08/31/16 17:03 Lanoxin PO 0.25 mg DAILY@1800 [facility] Administration Furosemide 40 mg 08/28/16 15:38 08/30/16 14:38 Lasix IVP 40 mg Q48H [facility] Administration Heparin Sodium (Porcine) 5,000 units 08/28/16 22:00 08/31/16 22:00 Heparin SC 5,000 units Q12 [facility] Administration Fluconazole 100 mls @ 100 mls/hr 08/27/16 10:15 08/31/16 09:17 Diflucan Iv 200 Mg/100 Ml Ns IVPB 100 mls/hr DAILY [facility] Administration Tigecycline 50 mg/ Dextrose 100 mls @ 100 mls/hr 09/01/16 02:00 09/01/16 01: 13 IVPB 100 mls/hr Q12H [facility] Administration Lisinopril 5 mg 08/17/16 10:00 08/31/16 09:20 Zestril PO 5 mg DAILY [facility] Administration Metoprolol Tartrate 25 mg 08/12/16 18:00 08/31/16 17:03 Lopressor PO 25 mg BID [facility] Administration Pantoprazole Sodium 40 mg 08/27/16 06:00 09/01/16 05:54 Protonix Susp PO 40 mg 0600 [facility] Administration - Patient Studies Lab Studies: Microbiology Studies 08/29/16 12:00 Urine Culture - Final Urine,Martinez Vancomycin Resistant E.faecium Lab Studies 09/01/16 09/01/16 09/01/16 Range/Units 06:09 06:09 05:30 WBC 13.2 H (4.8-10.8) K/uL RBC 3.07 L (3.80-5.20) Mil/uL Hgb 10.8 L (11.0-16.0) g/dL Hct 33.1 L (34.0-47.0) % MCV 107.7 H (81.0-99.0) fL MCH 35.1 H (27.0-31.0) pg MCHC 32.6 L (33.0-37.0) g/dL RDW 16.2 H (11.5-14.5) % Plt Count 294 (130-400) K/uL MPV 10.2 (7.2-11.7) fL Neut % (Auto) 89.4 H (50.0-75.0) % Lymph % (Auto) 3.2 L (20.0-40.0) % Benzie % (Auto) 6.3 (0.0-10.0) % Eos % (Auto) 0.5 (0.0-4.0) % Baso % (Auto) 0.6 (0.0-2.0) % Neut # 11.8 H (1.8-7.0) K/uL Lymph # 0.4 L (1.0-4.3) K/uL Benzie # 0.8 (0.0-0.8) K/uL Eos # 0.1 (0.0-0.7) K/uL Baso # 0.1 (0.0-0.2) K/uL Neutrophils % (Manual) 86 H (50-75) % Band Neutrophils % 1 (0-2) % Lymphocytes % (Manual) 5 L (20-40) % Monocytes % (Manual) 7 (0-10) % Eosinophils % (Manual) 1 (0-4) % Basophils % (Manual) (0-2) % Platelet Estimate Normal (NORMAL) Large Platelets Poikilocytosis (manual Anisocytosis (manual) Macrocytosis (manual) Tear Drop Cells Ovalocytes Schistocytes Puncture Site Lb pCO2 61 H (35-45) mm/Hg pO2 80 (80-100) mm/Hg HCO3 34.2 H (21-28) mmol/L ABG pH 7.41 (7.35-7.45) ABG Total CO2 40.6 H (22-28) mmol/L ABG O2 Saturation 98.5 H (95-98) % ABG Base Excess 11.9 H (-2.0-3.0) mmol/L ABG Hemoglobin 11.1 L (11.7-17.4) g/dL ABG Carboxyhemoglobin 1.8 H (0.5-1.5) % POC ABG HHb (Measured) 1.5 (0.0-5.0) % ABG Methemoglobin 0.9 (0.0-3.0) % Seng Test Na A-a O2 Difference 165.0 mm/Hg Respiratory Index 2.1 Hgb O2 Saturation 95.8 (95.0-98.0) % FiO2 45.0 % Inspiratory BiPAP 12 Expiratory BiPAP 6 Sodium 133 (132-148) mmol/L Potassium 4.0 (3.6-5.2) mmol/L Chloride 97 L (98-107) mmol/L Carbon Dioxide 33 H (22-30) mmol/L Anion Gap 7 L (10-20) BUN 27 H (7-17) mg/dL Creatinine 0.4 L (0.7-1.2) MG/DL Est GFR ( Amer) > 60 Est GFR (Non-Af Amer) > 60 Random Glucose 100 (65-105) mg/dL Calcium 7.8 L (8.6-10.4) mg/dl Phosphorus 2.6 (2.5-4.5) mg/dL Magnesium 1.8 (1.6-2.3) mg/dL Total Bilirubin 0.4 (0.2-1.3) mg/dL AST 25 (14-36) U/L ALT 34 (9-52) U/L Alkaline Phosphatase 192 H (38-126) U/L Total Protein 5.6 L (6.3-8.3) g/dL Albumin 2.4 L (3.5-5.0) g/dL Globulin 3.2 (2.2-3.9) gm/dL Albumin/Globulin Ratio 0.8 L (1.0-2.1) 08/31/ Range/Units 06:08 WBC (4.8-10.8) K/uL RBC (3.80-5.20) Mil/uL Hgb (11.0-16.0) g/dL Hct (34.0-47.0) % MCV (81.0-99.0) fL MCH (27.0-31.0) pg MCHC (33.0-37.0) g/dL RDW (11.5-14.5) % Plt Count (130-400) K/uL MPV (7.2-11.7) fL Neut % (Auto) (50.0-75.0) % Lymph % (Auto) (20.0-40.0) % Benzie % (Auto) (0.0-10.0) % Eos % (Auto) (0.0-4.0) % Baso % (Auto) (0.0-2.0) % Neut # (1.8-7.0) K/uL Lymph # (1.0-4.3) K/uL Benzie # (0.0-0.8) K/uL Eos # (0.0-0.7) K/uL Baso # (0.0-0.2) K/uL Neutrophils % (Manual) 84 H (50-75) % Band Neutrophils % 3 H (0-2) % Lymphocytes % (Manual) 4 L (20-40) % Monocytes % (Manual) 7 (0-10) % Eosinophils % (Manual) (0-4) % Basophils % (Manual) 2 (0-2) % Platelet Estimate Normal (NORMAL) Large Platelets Present Poikilocytosis (manual Slight Anisocytosis (manual) Slight Macrocytosis (manual) Moderate Tear Drop Cells Slight Ovalocytes Slight Schistocytes Slight Puncture Site pCO2 (35-45) mm/Hg pO2 (80-100) mm/Hg HCO3 (21-28) mmol/L ABG pH (7.35-7.45) ABG Total CO2 (22-28) mmol/L ABG O2 Saturation (95-98) % ABG Base Excess (-2.0-3.0) mmol/L ABG Hemoglobin (11.7-17.4) g/dL ABG Carboxyhemoglobin (0.5-1.5) % POC ABG HHb (Measured) (0.0-5.0) % ABG Methemoglobin (0.0-3.0) % Seng Test A-a O2 Difference mm/Hg Respiratory Index Hgb O2 Saturation (95.0-98.0) % FiO2 % Inspiratory BiPAP Expiratory BiPAP Sodium (132-148) mmol/L Potassium (3.6-5.2) mmol/L Chloride (98-107) mmol/L Carbon Dioxide (22-30) mmol/L Anion Gap (10-20) BUN (7-17) mg/dL Creatinine (0.7-1.2) MG/DL Est GFR ( Amer) Est GFR (Non-Af Amer) Random Glucose (65-105) mg/dL Calcium (8.6-10.4) mg/dl Phosphorus (2.5-4.5) mg/dL Magnesium (1.6-2.3) mg/dL Total Bilirubin (0.2-1.3) mg/dL AST (14-36) U/L ALT (9-52) U/L Alkaline Phosphatase (38-126) U/L Total Protein (6.3-8.3) g/dL Albumin (3.5-5.0) g/dL Globulin (2.2-3.9) gm/dL Albumin/Globulin Ratio (1.0-2.1) Laboratory Results - last 24 hr 08/31/16 09/01/16 09/01/16 06:08 05:30 06:09 WBC 13.2 H RBC 3.07 L Hgb 10.8 L Hct 33.1 L MCV 107.7 H MCH 35.1 H MCHC 32.6 L RDW 16.2 H Plt Count 294 MPV 10.2 Neut % (Auto) 89.4 H Lymph % (Auto) 3.2 L Benzie % (Auto) 6.3 Eos % (Auto) 0.5 Baso % (Auto) 0.6 Neut # 11.8 H Lymph # 0.4 L Benzie # 0.8 Eos # 0.1 Baso # 0.1 Neutrophils % (Manual) 84 H 86 H Band Neutrophils % 3 H 1 Lymphocytes % (Manual) 4 L 5 L Monocytes % (Manual) 7 7 Eosinophils % (Manual) 1 Basophils % (Manual) 2 Platelet Estimate Normal Normal Large Platelets Present Poikilocytosis (manual Slight Anisocytosis (manual) Slight Macrocytosis (manual) Moderate Tear Drop Cells Slight Ovalocytes Slight Schistocytes Slight Puncture Site Lb pCO2 61 H pO2 80 HCO3 34.2 H ABG pH 7.41 ABG Total CO2 40.6 H ABG O2 Saturation 98.5 H ABG Base Excess 11.9 H ABG Hemoglobin 11.1 L ABG Carboxyhemoglobin 1.8 H POC ABG HHb (Measured) 1.5 ABG Methemoglobin 0.9 Seng Test Na A-a O2 Difference 165.0 Respiratory Index 2.1 Hgb O2 Saturation 95.8 FiO2 45.0 Inspiratory BiPAP 12 Expiratory BiPAP 6 Sodium Potassium Chloride Carbon Dioxide Anion Gap BUN Creatinine Est GFR ( Amer) Est GFR (Non-Af Amer) Random Glucose Calcium Phosphorus Magnesium Total Bilirubin AST ALT Alkaline Phosphatase Total Protein Albumin Globulin Albumin/Globulin Ratio 09/01/16 06:09 WBC RBC Hgb Hct MCV MCH MCHC RDW Plt Count MPV Neut % (Auto) Lymph % (Auto) Benzie % (Auto) Eos % (Auto) Baso % (Auto) Neut # Lymph # Benzie # Eos # Baso # Neutrophils % (Manual) Band Neutrophils % Lymphocytes % (Manual) Monocytes % (Manual) Eosinophils % (Manual) Basophils % (Manual) Platelet Estimate Large Platelets Poikilocytosis (manual Anisocytosis (manual) Macrocytosis (manual) Tear Drop Cells Ovalocytes Schistocytes Puncture Site pCO2 pO2 HCO3 ABG pH ABG Total CO2 ABG O2 Saturation ABG Base Excess ABG Hemoglobin ABG Carboxyhemoglobin POC ABG HHb (Measured) ABG Methemoglobin Seng Test A-a O2 Difference Respiratory Index Hgb O2 Saturation FiO2 Inspiratory BiPAP Expiratory BiPAP Sodium 133 Potassium 4.0 Chloride 97 L Carbon Dioxide 33 H Anion Gap 7 L BUN 27 H Creatinine 0.4 L Est GFR ( Amer) > 60 Est GFR (Non-Af Amer) > 60 Random Glucose 100 Calcium 7.8 L Phosphorus 2.6 Magnesium 1.8 Total Bilirubin 0.4 AST 25 ALT 34 Alkaline Phosphatase 192 H Total Protein 5.6 L Albumin 2.4 L Globulin 3.2 Albumin/Globulin Ratio 0.8 L Review of Systems - Review of Systems Systems not reviewed;Unavailable: Acuity of Condition Assessment/Plan - Assessment and Plan (Free Text) Assessment: 76 F PMHx HTN, A. fib, COPD, anxiety, recurrent falls admitted for sepsis from UTI and bilateral hip fractures. Plan: Neuro: -Responds to name and follows simple commands -Head CT 08/15: negative Pulm: -BiPAP (12, 6, 45%) -CXR 09/01: biapical pleural thickening with upper lobe granulomatous changes. Diffuse increased IS lung markings. Hyperinflation suggestive for COPD and/or emphysematous changes. Scattered nodules/nodular densities throughout both lungs. Prominent consolidative changes within the L lung base and R infrahilar region. Small to moderate L pleural effusion -Chest pigtail catheter placed 08/19 for large R pleural effusion- removed 08/23 -s/p thoracentesis of pleural effusion 08/19 WBC 12 RBC 219 Neutrophils 25 Lymphocytes 63 Monocytes 12 Fluid comment: few macrophages and mesothelials Total protein < 3 LDH 43 Glucose 106 -sputum culture (08/14/16): Yeast species. -Duoneb 3ml inh q6 -Diflucan 200mg IV daily x 14 days Cardiovascular: -CHF exacerbation resolved as per cardio proBNP 68175 (08/10)--> 57688 (08/12)--> 7010 (08/26) -nonischemic cardiomyopathy -Echo 08/14: LA, LV, RA, RV appear normal; moderate to severe L systolic dysfunction; mitral, TV, Aortic valve normal; mild MR, TR with calculated pulmonary systolic pressure of 54mm consistent with mod pulmonary HTN; IVC is WNL; minimal anterior echo free space probably fat -s/p cardiorespiratory arrest 08/14/16 with successful resuscitation -Cardiac cath 08/13: nonischemic cardiomyopathy with EF 15-20%; 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; great collaterals from L to R system; no coronary intervention -Echo 08/09: EF 25-30%; LV systolic function severely imparied; global hypokinesia more pronounced in anterospetal area; Grade I abnl relaxation pattern on transmitral doppler flow; MR moderate to severe; mild pulm HTN -Digoxin 0.25mg po daily -Lisinopril 5mg po daily -Lopressor 25mg po bid -Lasix 40mg ivp every other day -Patient given albumin one time 08/26 Heme: -H&H stable -transfuse if needed preop Renal: -UO improving Endo: -no acute issues GI: -NGT feedings @ 35cc/hr tolerating with no residuals MSK: -b/l hip fracture -hold surgical intervention until medically optimized ID: -procalcitonin (08/26/16) 2.31 -Urine: +VRE Faecium -Tigecycline 50mg ivpb q12 -Tylenol for temp 650mg po q6 prn -sputum culture 08/14: Yeast species. -Diflucan 200mg IV daily x 14 days DVT proph: Heparin 5000u sc q12 GI proph: Protonix 40mg po daily Code status: full code Case discussed with Dr Gali Waters PGY2
--- NOTE | 2016-09-01 08:30 | RAD ---
PROCEDURE: CHEST RADIOGRAPH, 1 VIEW HISTORY: Pre-Op, BiPap COMPARISON: 08/30/2016 FINDINGS: LUNGS: Biapical pleural thickening with upper lobe granulomatous changes. Diffuse increased interstitial lung markings. Hyperinflation suggestive for COPD and or emphysematous changes. Scattered nodules/nodular densities throughout both lungs. Prominent consolidative changes within the left lung base and right infrahilar region. Small to moderate left pleural effusion. PLEURA: As above. CARDIOVASCULAR: Cardiomegaly. Calcification at the aortic knob. OSSEOUS STRUCTURES: Degenerative changes in the spine and shoulders. Deformities of several left lateral ribs. VISUALIZED UPPER ABDOMEN: Normal. OTHER FINDINGS: None. IMPRESSION: Biapical pleural thickening with upper lobe granulomatous changes. Diffuse increased interstitial lung markings. Hyperinflation suggestive for COPD and or emphysematous changes. Scattered nodules/nodular densities throughout both lungs. Prominent consolidative changes within the left lung base and right infrahilar region. Small to moderate left pleural effusion.
--- NOTE | 2016-09-01 08:52 | CP.PCM.PN ---
Subjective - Date & Time of Evaluation Date of Evaluation: 09/01/16 Time of Evaluation: 08:50 - Subjective Subjective: Patient with family at bedside. Patient complains of hip pain with movement. Discussed hip fracture and surgery in detail, risks/benefits/alternatives from orthopedic perspective including pain control/comfort, stability, goals of transfers and ambulation. Also explained fracture of left greater trochanter and how that is non operative. Advised family to address concerns regarding fitness for surgery to the medical team. Objective - Vital Signs/Intake and Output Vital Signs (last 24 hours): Temp Pulse Resp BP Pulse Ox 97.8 F 72 20 127/61 100 09/01/16 08:00 09/01/16 08:07 09/01/16 08:00 09/01/16 08:00 09/01/16 08:00 Intake and Output: 09/01/16 09/01/16 06:59 18:59 Intake Total 580 Output Total 335 Balance 245 - Medications Medications: Current Medications Acetaminophen (Tylenol 650mg/20.3ml Solution Ud) 650 mg PO Q6H PRN PRN Reason: temp.100.4&above;mild pain 1-3 Last Admin: 08/25/16 00:45 Dose: 650 mg Albuterol/Ipratropium (Duoneb 3 Mg/0.5 Mg (3 Ml) Ud) 3 ml INH RQ6 [facility] Last Admin: 09/01/16 08:06 Dose: 3 ml Digoxin (Lanoxin) 0.25 mg PO DAILY@1800 [facility] Last Admin: 08/31/16 17:03 Dose: 0.25 mg Furosemide (Lasix) 40 mg IVP Q48H [facility] Last Admin: 08/30/16 14:38 Dose: 40 mg Heparin Sodium (Porcine) (Heparin) 5,000 units SC Q12 [facility] Last Admin: 08/31/16 22:00 Dose: 5,000 units Fluconazole (Diflucan Iv 200 Mg/100 Ml Ns) 100 mls @ 100 mls/hr IVPB DAILY [facility] Last Admin: 08/31/16 09:17 Dose: 100 mls/hr Tigecycline 50 mg/ Dextrose 100 mls @ 100 mls/hr IVPB Q12H [facility] Last Admin: 09/01/16 01:13 Dose: 100 mls/hr Lisinopril (Zestril) 5 mg PO DAILY [facility] Last Admin: 08/31/16 09:20 Dose: 5 mg Metoprolol Tartrate (Lopressor) 25 mg PO BID [facility] Last Admin: 08/31/16 17:03 Dose: 25 mg Pantoprazole Sodium (Protonix Susp) 40 mg PO 0600 [facility] Last Admin: 09/01/16 05:54 Dose: 40 mg - Labs Labs: 09/01/16 06:09 09/01/16 06:09 PT 10.6 SECONDS (9.7-12.2) 08/21/16 06:11 INR 1.0 08/21/16 06:11 APTT 29 SECONDS (21-34) 08/21/16 06:11 - Extremities Exam Additional comments: RLE: +Anup nkle/toes, sensation intact, +DP pulse, cavles soft NT neg homans + venodynes Assessment and Plan (1) Garden grade IV closed subcapital fracture of proximal end of right femur Assessment & Plan: Dr. Elena discussed case last night at length with Dr. Gilmore surgery cancelled, will await medical optimization prior to OR VRE in urine, ID f/u appreciated, antibiotics adjusted cont VTE proph resume diet, OR cancelled for today will await optimization Status: Acute (2) Degenerative joint disease of right hip Status: Chronic (3) Closed fracture of greater trochanter of left femur Assessment & Plan: non operative f/u xrays ordered Status: Acute
[2016-09-01] MEDS: Fluconazole IV 200mg/100 ml NS 100 ML IVPB SCH (09:12)
--- NOTE | 2016-09-01 10:41 | CP.PCM.PN ---
Subjective - Date & Time of Evaluation Date of Evaluation: 09/01/16 Time of Evaluation: 08:00 - Subjective Subjective: Extubated 08/29 but patient has been unable to come off of BiPAP. Patient is awake and responsive Tolerating feeds throuhg NGT Objective - Vital Signs/Intake and Output Vital Signs (last 24 hours): Temp Pulse Resp BP Pulse Ox 97.8 F 72 20 127/61 100 09/01/16 08:00 09/01/16 08:07 09/01/16 08:00 09/01/16 09:14 09/01/16 08:00 Intake and Output: 09/01/16 09/01/16 06:59 18:59 Intake Total 580 Output Total 335 Balance 245 - Medications Medications: Current Medications Acetaminophen (Tylenol 650mg/20.3ml Solution Ud) 650 mg PO Q6H PRN PRN Reason: temp.100.4&above;mild pain 1-3 Last Admin: 08/25/16 00:45 Dose: 650 mg Albuterol/Ipratropium (Duoneb 3 Mg/0.5 Mg (3 Ml) Ud) 3 ml INH RQ6 [facility] Last Admin: 09/01/16 08:06 Dose: 3 ml Digoxin (Lanoxin) 0.25 mg PO DAILY@1800 [facility] Last Admin: 08/31/16 17:03 Dose: 0.25 mg Furosemide (Lasix) 40 mg IVP Q48H [facility] Last Admin: 08/30/16 14:38 Dose: 40 mg Heparin Sodium (Porcine) (Heparin) 5,000 units SC Q12 [facility] Last Admin: 09/01/16 09:14 Dose: 5,000 units Fluconazole (Diflucan Iv 200 Mg/100 Ml Ns) 100 mls @ 100 mls/hr IVPB DAILY [facility] Last Admin: 09/01/16 09:12 Dose: 100 mls/hr Tigecycline 50 mg/ Dextrose 100 mls @ 100 mls/hr IVPB Q12H [facility] Last Admin: 09/01/16 01:13 Dose: 100 mls/hr Lisinopril (Zestril) 5 mg PO DAILY [facility] Last Admin: 09/01/16 09:15 Dose: 5 mg Metoprolol Tartrate (Lopressor) 25 mg PO BID [facility] Last Admin: 09/01/16 09:14 Dose: 25 mg Pantoprazole Sodium (Protonix Susp) 40 mg PO 0600 [facility] Last Admin: 09/01/16 05:54 Dose: 40 mg - Labs Labs: 09/01/16 06:09 09/01/16 06:09 PT 10.6 SECONDS (9.7-12.2) 08/21/16 06:11 INR 1.0 08/21/16 06:11 APTT 29 SECONDS (21-34) 08/21/16 06:11 - Constitutional Appears: Non-toxic, Cachectic, Chronically Ill - Head Exam Head Exam: NORMOCEPHALIC - Eye Exam Eye Exam: PERRL. absent: Scleral icterus - ENT Exam ENT Exam: Mucous Membranes Dry - Neck Exam Neck Exam: absent: Lymphadenopathy - Respiratory Exam Respiratory Exam: Decreased Breath Sounds, Rhonchi - Cardiovascular Exam Cardiovascular Exam: REGULAR RHYTHM, +S1, +S2 - GI/Abdominal Exam GI & Abdominal Exam: Distended, Soft. absent: Tenderness - Rectal Exam Rectal Exam: Deferred - Exam Exam: NORMAL INSPECTION - Extremities Exam Extremities Exam: absent: Calf Tenderness, Pedal Edema - Back Exam Back Exam: absent: CVA tenderness (L), CVA tenderness (R) Assessment and Plan (1) Acute respiratory failure Status: Acute (2) Closed fracture of greater trochanter of left femur Status: Acute (3) Contusion of head Status: Acute (4) Fall Status: Acute (5) Garden grade IV closed subcapital fracture of proximal end of right femur Status: Acute (6) Pelvic fracture Status: Acute (7) Pleural effusion due to CHF (congestive heart failure) Status: Acute (8) Right middle lobe pneumonia Status: Acute (9) CHF (NYHA class III, ACC/AHA stage C) Status: Chronic (10) Degenerative joint disease of right hip Status: Chronic (11) Multifocal atrial tachycardia Status: Chronic (12) Arrhythmia Status: Resolved (13) CHF exacerbation Status: Resolved (14) Dehydration Status: Resolved (15) Pleural effusion, right Status: Resolved (16) Sepsis Status: Resolved
--- NOTE | 2016-09-01 10:55 | CP.PCM.PN ---
<Chris Harrington - Last Filed: 09/01/16 10:52> Subjective - Date & Time of Evaluation Date of Evaluation: 09/01/16 Time of Evaluation: 10:53 - Subjective Subjective: Progress Note for Dr. Peacock Pt seen and examined at bedside. Pt has been extubated and remains on BIPAP. Pt is lethargic but arousable. Pt able to follow commands. Objective - Vital Signs/Intake and Output Vital Signs (last 24 hours): Temp Pulse Resp BP Pulse Ox 97.8 F 72 20 127/61 100 09/01/16 08:00 09/01/16 08:07 09/01/16 08:00 09/01/16 09:14 09/01/16 08:00 Intake and Output: 09/01/16 09/01/16 06:59 18:59 Intake Total 580 Output Total 335 Balance 245 - Medications Medications: Current Medications Acetaminophen (Tylenol 650mg/20.3ml Solution Ud) 650 mg PO Q6H PRN PRN Reason: temp.100.4&above;mild pain 1-3 Last Admin: 08/25/16 00:45 Dose: 650 mg Albuterol/Ipratropium (Duoneb 3 Mg/0.5 Mg (3 Ml) Ud) 3 ml INH RQ6 [facility] Last Admin: 09/01/16 08:06 Dose: 3 ml Digoxin (Lanoxin) 0.25 mg PO DAILY@1800 [facility] Last Admin: 08/31/16 17:03 Dose: 0.25 mg Furosemide (Lasix) 40 mg IVP Q48H [facility] Last Admin: 08/30/16 14:38 Dose: 40 mg Heparin Sodium (Porcine) (Heparin) 5,000 units SC Q12 [facility] Last Admin: 09/01/16 09:14 Dose: 5,000 units Fluconazole (Diflucan Iv 200 Mg/100 Ml Ns) 100 mls @ 100 mls/hr IVPB DAILY [facility] Last Admin: 09/01/16 09:12 Dose: 100 mls/hr Tigecycline 50 mg/ Dextrose 100 mls @ 100 mls/hr IVPB Q12H [facility] Last Admin: 09/01/16 01:13 Dose: 100 mls/hr Lisinopril (Zestril) 5 mg PO DAILY [facility] Last Admin: 09/01/16 09:15 Dose: 5 mg Metoprolol Tartrate (Lopressor) 25 mg PO BID [facility] Last Admin: 09/01/16 09:14 Dose: 25 mg Pantoprazole Sodium (Protonix Susp) 40 mg PO 0600 [facility] Last Admin: 09/01/16 05:54 Dose: 40 mg - Labs Labs: 09/01/16 06:09 09/01/16 06:09 PT 10.6 SECONDS (9.7-12.2) 08/21/16 06:11 INR 1.0 08/21/16 06:11 APTT 29 SECONDS (21-34) 08/21/16 06:11 - Constitutional Appears: Toxic, No Acute Distress - Head Exam Head Exam: ATRAUMATIC, NORMAL INSPECTION, NORMOCEPHALIC - Respiratory Exam Respiratory Exam: Decreased Breath Sounds, NORMAL BREATHING PATTERN - Cardiovascular Exam Cardiovascular Exam: RRR, +S1, +S2 - GI/Abdominal Exam GI & Abdominal Exam: Soft, Normal Bowel Sounds. absent: Tenderness - Extremities Exam Extremities Exam: absent: Calf Tenderness, Pedal Edema - Neurological Exam Neurological Exam: Awake - Skin Skin Exam: Intact, Normal Color, Warm Assessment and Plan (1) CHF exacerbation Assessment & Plan: CHF exacerbation resolved Surgery cancelled at this time until patient is medically optimized Pt is high risk for procedure with very poor prognosis We will sign off at this time, please re-consult as needed. Thank you Status: Resolved <Max Peacock - Last Filed: 09/17/16 07:33> Objective - Vital Signs/Intake and Output Vital Signs (last 24 hours): Temp Pulse Resp BP Pulse Ox 97 F L 48 L 20 80/0 L 94 L 09/17/16 04:00 09/17/16 07:00 09/17/16 07:11 09/17/16 07:00 09/17/16 05:00 Intake and Output: 09/17/16 09/17/16 06:59 18:59 Intake Total 1376.3 67.5 Output Total 0 0 Balance 1376.3 67.5 - Medications Medications: Current Medications Acetaminophen (Tylenol 650mg/20.3ml Solution Ud) 650 mg PO Q6H PRN PRN Reason: temp.100.4&above;mild pain 1-3 Last Admin: 08/25/16 00:45 Dose: 650 mg Albuterol/Ipratropium (Duoneb 3 Mg/0.5 Mg (3 Ml) Ud) 3 ml INH RQ6 [facility] Last Admin: 09/17/16 01:43 Dose: 3 ml Digoxin (Lanoxin) 0.25 mg IVP DAILY@1800 [facility] Last Admin: 09/16/16 17:07 Dose: 0.25 mg Famotidine (Pepcid) 20 mg IVP DAILY [facility] Last Admin: 09/16/16 10:32 Dose: 20 mg Heparin Sodium (Porcine) (Heparin) 5,000 units SC Q12 [facility] Last Admin: 09/16/16 21:31 Dose: 5,000 units Cefepime HCl (Maxipime Iv 1 Gm Premix) 1 gm in 50 mls @ 100 mls/hr IVPB Q12H [facility] Last Admin: 09/16/16 21:58 Dose: 100 mls/hr Linezolid (Zyvox 600mg/300ml D5w) 600 mg in 300 mls @ 200 mls/hr IVPB Q12 [facility] Last Admin: 09/16/16 21:47 Dose: 200 mls/hr Micafungin Sodium 100 mg/ (Sodium Chloride) 100 mls @ 100 mls/hr IV Q24H [facility] Last Admin: 09/16/16 22:35 Dose: 100 mls/hr Norepinephrine Bitartrate 4 mg (/ Sodium Chloride) 254 mls @ 15.24 mls/hr IV .[id number] PRN; Protocol; 4 MCG/MIN PRN Reason: TITRATE PER MD ORDER Last Titration: 09/16/16 21:00 Dose: 0 mcg/min, 0 mls/hr Phenylephrine HCl 30 mg/ (Dextrose) 253 mls @ 10.12 mls/hr IV .Q24H PRN; Protocol; 20 MCG/MIN PRN Reason: TITRATE PER MD ORDER Last Titration: 09/16/16 18:38 Dose: 0 mcg/min, 0 mls/hr Dopamine HCl/Dextrose (Dopamine 400mg/250ml D5w) 400 mg in 250 mls @ 3.75 mls/ hr IV .Q24H PRN; Protocol; 2 MCG/KG/MIN PRN Reason: TITRATE PER MD ORDER Last Titration: 09/16/16 18:37 Dose: 0 mcg/kg/min, 0 mls/hr Dextrose (Dextrose 10% In Water) 1,000 mls @ 30 mls/hr IV .Q24H [facility] Last Admin: 09/16/16 11:40 Dose: 30 mls/hr Lisinopril (Zestril) 5 mg PO DAILY [facility] Last Admin: 09/16/16 10:22 Dose: Not Given Lorazepam (Ativan) 1 mg IVP Q3H PRN PRN Reason: Agitation Last Admin: 09/14/16 22:10 Dose: 1 mg Metoprolol Tartrate (Lopressor) 25 mg PO BID [facility] Last Admin: 09/12/16 09:29 Dose: 25 mg Morphine Sulfate (Morphine) 1 mg IV Q4 PRN PRN Reason: Pain, moderate (4-7) Last Admin: 09/16/16 18:31 Dose: 1 mg - Labs Labs: 09/17/16 06:20 09/17/16 06:20 PT 13.5 SECONDS (9.7-12.2) H 09/14/16 11:40 INR 1.2 09/14/16 11:40 APTT 37 SECONDS (21-34) H 09/14/16 11:40 Assessment and Plan (1) CHF exacerbation Status: Resolved Attending/Attestation - Attestation I have personally seen and examined this patient.: Yes I have fully participated in the care of the patient.: Yes I have reviewed all pertinent clinical information, including history, physical exam and plan: Yes Notes (Text): 09/17/16 07:33 pt rate control extubated continue bipap and follow up lytes
--- NOTE | 2016-09-01 13:47 | CP.PCM.PN ---
Subjective - Date & Time of Evaluation Date of Evaluation: 09/01/16 Time of Evaluation: 13:44 - Subjective Subjective: Patient on BiPap for respiratory support, unable to speak , but communicates by blinking her eyes. Family at bedside, goals of care discussed. Objective - Vital Signs/Intake and Output Vital Signs (last 24 hours): Temp Pulse Resp BP Pulse Ox 97.8 F 65 20 128/69 97 09/01/16 12:00 09/01/16 13:00 09/01/16 13:00 09/01/16 13:00 09/01/16 13:00 Intake and Output: 09/01/16 09/01/16 06:59 18:59 Intake Total 580 410 Output Total 335 Balance 245 410 - Medications Medications: Current Medications Acetaminophen (Tylenol 650mg/20.3ml Solution Ud) 650 mg PO Q6H PRN PRN Reason: temp.100.4&above;mild pain 1-3 Last Admin: 08/25/16 00:45 Dose: 650 mg Albuterol/Ipratropium (Duoneb 3 Mg/0.5 Mg (3 Ml) Ud) 3 ml INH RQ6 [facility] Last Admin: 09/01/16 08:06 Dose: 3 ml Digoxin (Lanoxin) 0.25 mg PO DAILY@1800 [facility] Last Admin: 08/31/16 17:03 Dose: 0.25 mg Furosemide (Lasix) 40 mg IVP Q48H [facility] Last Admin: 08/30/16 14:38 Dose: 40 mg Heparin Sodium (Porcine) (Heparin) 5,000 units SC Q12 [facility] Last Admin: 09/01/16 09:14 Dose: 5,000 units Fluconazole (Diflucan Iv 200 Mg/100 Ml Ns) 100 mls @ 100 mls/hr IVPB DAILY [facility] Last Admin: 09/01/16 09:12 Dose: 100 mls/hr Tigecycline 50 mg/ Sodium (Chloride) 100 mls @ 100 mls/hr IVPB Q12H [facility] Lisinopril (Zestril) 5 mg PO DAILY [facility] Last Admin: 09/01/16 09:15 Dose: 5 mg Metoprolol Tartrate (Lopressor) 25 mg PO BID [facility] Last Admin: 09/01/16 09:14 Dose: 25 mg Pantoprazole Sodium (Protonix Susp) 40 mg PO 0600 [facility] Last Admin: 09/01/16 05:54 Dose: 40 mg - Labs Labs: 09/01/16 06:09 09/01/16 06:09 PT 10.6 SECONDS (9.7-12.2) 08/21/16 06:11 INR 1.0 08/21/16 06:11 APTT 29 SECONDS (21-34) 08/21/16 06:11 - Constitutional Appears: In Acute Distress - Head Exam Head Exam: ATRAUMATIC, NORMAL INSPECTION, NORMOCEPHALIC - Eye Exam Eye Exam: EOMI, Normal appearance, PERRL Pupil Exam: NORMAL ACCOMODATION, PERRL - ENT Exam ENT Exam: Mucous Membranes Moist, Normal Exam Additional comments: NGT - Neck Exam Neck Exam: Normal Inspection - Respiratory Exam Respiratory Exam: Accessory Muscle Use, Decreased Breath Sounds, Respiratory Distress Additional comments: On BiPap support - Cardiovascular Exam Cardiovascular Exam: Tachycardia, REGULAR RHYTHM - GI/Abdominal Exam GI & Abdominal Exam: Soft, Normal Bowel Sounds - Rectal Exam Rectal Exam: Deferred - Exam Additional comments: Martinez at bed side, VRE, on IV antibiotics - Extremities Exam Additional comments: right leg externaly inverted - Back Exam Back Exam: NORMAL INSPECTION - Neurological Exam Neurological Exam: Alert, Awake, Oriented x3 Neuro motor strength exam: Left Upper Extremity: 2/1, Right Upper Extremity: 2/1 , Left Lower Extremity: 2/1, Right Lower Extremity: 0 - Psychiatric Exam Psychiatric exam: Normal Affect, Normal Mood Assessment and Plan - Assessment and Plan (Free Text) Assessment: Patient off the MV support, tolerated NC for short time this morning and was placed on Bi Pap after desaturating. patient is alert, and makes eye contacts with family at beds side; and sister. I reviewed patient's clinical presentation and most recent diagnostic studies. Family made aware that patient was pending right hip Sx, but was not stable just yet for the procedure. Patient and family stated understanding. Code status discussed. Patient nodded head for ' yes", when asked about her earlier stated wishes, to be allowed natural if all aggressive measures do not bring about expected recovery and quality of life. Patient's sister talked to patient about some financial issues. For about 2 min , patient tolerated NC and was able to talk. Patient got emotional and Bi pap reapplied for O2Sat 87%. While on NC, moist cough was noted. Patient unable to bring the sputum up. Impression * patient is improving slowly, but still dependent of BiPap for resp. support * Patient confirmed she would want to be allowed natural if meaningful recovery was not expected despite all aggressive measures applied. * Patient's Ultimate goal is to return home and resume her normal life Suggestion * Patient may need some chest PT to loosen up secretions and assist her with coughing it up * Continue all aggressive measures to support life as long as progress is noted * Hip Sx is pending; patient and family agreed with it. Will continue to fallow up with patient and family and offer assistance in decision making progress.
--- NOTE | 2016-09-01 14:57 | RAD ---
PROCEDURE: Radiographs of the pelvis and bilateral hips HISTORY: f/u left greater trochanter fracture COMPARISON: None. FINDINGS: BONES: There is redemonstration of a subcapital fracture. There is interval approximately half shaft with lateral displacement of the proximal femur and 11 mm distraction of fracture fragments. Bone alignment is normal. There is diffuse bone demineralization. 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 The sacroiliac joints are normal. SOFT TISSUES: Normal. OTHER FINDINGS: None. IMPRESSION: Redemonstration of subcapital femoral fracture and interval development of mental approximately high of shaft with lateral displacement of proximal femur.
[2016-09-01] MEDS: Digoxin 250 mcg (0.25 mg) Tab PO SCH (17:20)
--- NOTE | 2016-09-01 23:20 | CP.PCM.PN ---
Subjective - Date & Time of Evaluation Date of Evaluation: 09/01/16 Time of Evaluation: 21:00 - Subjective Subjective: Patient very lethargic, dependent on BIPAP, with copious secretions. Objective - Vital Signs/Intake and Output Vital Signs (last 24 hours): Temp Pulse Resp BP Pulse Ox 97 F L 78 19 131/89 95 09/01/16 16:00 09/01/16 19:58 09/01/16 19:00 09/01/16 19:00 09/01/16 19:00 Intake and Output: 09/01/16 09/02/16 18:59 06:59 Intake Total 735 35 Output Total 1400 Balance -665 35 - Medications Medications: Current Medications Acetaminophen (Tylenol 650mg/20.3ml Solution Ud) 650 mg PO Q6H PRN PRN Reason: temp.100.4&above;mild pain 1-3 Last Admin: 08/25/16 00:45 Dose: 650 mg Albuterol/Ipratropium (Duoneb 3 Mg/0.5 Mg (3 Ml) Ud) 3 ml INH RQ6 [facility] Last Admin: 09/01/16 19:54 Dose: 3 ml Digoxin (Lanoxin) 0.25 mg PO DAILY@1800 [facility] Last Admin: 09/01/16 17:20 Dose: 0.25 mg Furosemide (Lasix) 40 mg IVP Q48H [facility] Last Admin: 09/01/16 16:00 Dose: 40 mg Heparin Sodium (Porcine) (Heparin) 5,000 units SC Q12 [facility] Last Admin: 09/01/16 09:14 Dose: 5,000 units Fluconazole (Diflucan Iv 200 Mg/100 Ml Ns) 100 mls @ 100 mls/hr IVPB DAILY [facility] Last Admin: 09/01/16 09:12 Dose: 100 mls/hr Tigecycline 50 mg/ Sodium (Chloride) 100 mls @ 100 mls/hr IVPB Q12H [facility] Last Admin: 09/01/16 13:00 Dose: 100 mls/hr Lisinopril (Zestril) 5 mg PO DAILY [facility] Last Admin: 09/01/16 09:15 Dose: 5 mg Metoprolol Tartrate (Lopressor) 25 mg PO BID [facility] Last Admin: 09/01/16 17:19 Dose: 25 mg Pantoprazole Sodium (Protonix Susp) 40 mg PO 0600 [facility] Last Admin: 09/01/16 05:54 Dose: 40 mg - Labs Labs: 09/01/16 06:09 09/01/16 06:09 PT 10.6 SECONDS (9.7-12.2) 08/21/16 06:11 INR 1.0 08/21/16 06:11 APTT 29 SECONDS (21-34) 08/21/16 06:11 - Constitutional Appears: Chronically Ill - Head Exam Head Exam: NORMAL INSPECTION - Eye Exam Eye Exam: Normal appearance - ENT Exam ENT Exam: Normal Exam - Neck Exam Neck Exam: Normal Inspection - Respiratory Exam Additional comments: Rhonchi heard all over lung kerns. - Cardiovascular Exam Cardiovascular Exam: Irregular Rhythm - GI/Abdominal Exam GI & Abdominal Exam: Soft, Normal Bowel Sounds - Rectal Exam Rectal Exam: Deferred - Extremities Exam Additional comments: Decreased pedal edema. Tender both hips. External rotation of the right leg. - Back Exam Back Exam: NORMAL INSPECTION - Neurological Exam Additional comments: Lethargic. - Psychiatric Exam Additional comments: Very lethargic. - Skin Skin Exam: Abrasion Assessment and Plan (1) Closed fracture of greater trochanter of left femur Status: Acute (2) Dehydration Status: Resolved (3) Sepsis Status: Resolved (4) Fall Status: Acute (5) Arrhythmia Status: Resolved (6) Contusion of head Status: Acute (7) Garden grade IV closed subcapital fracture of proximal end of right femur Status: Acute (8) CHF exacerbation Status: Resolved (9) Acute respiratory failure Assessment & Plan: To continue BIPAP and intensive pulmonary toilet. Status: Acute (10) Pleural effusion, right Status: Resolved (11) Right middle lobe pneumonia Assessment & Plan: To continue IV antibiotics as per Dr Stanley. Status: Acute (12) VRE (vancomycin resistant enterococcus) culture positive Status: Acute
[2016-09-02] MEDS: Albuterol-Ipratrop 3 mg / 0.5 (3 ml) UD INH SCH ×4 (01:04→19:48)
[2016-09-02] MEDS: Pantoprazole 40 mg Susp UD PO SCH (06:00)
[2016-09-02 06:26] LABS: BASO % 0.3 % (0.0-2.0); EOS % 0.1 % (0.0-4.0); HEMOGLOBIN 10.8 g/dL (11.0-16.0); LYMPH # 0.5 K/uL (1.0-4.3); LYMPH % 2.8 % (20.0-40.0); MEAN CORPUSCULAR HEMOGLOBIN 34.7 pg (27.0-31.0); MEAN CORPUSCULAR HGB CONC 32.4 g/dL (33.0-37.0); MEAN PLATELET VOLUME 10.3 fL (7.2-11.7); MONO # 0.7 K/uL (0.0-0.8); NEUT # 15.5 K/uL (1.8-7.0); NEUT % 92.8 % (50.0-75.0); PLATELET COUNT 291 K/uL (130-400); WHITE BLOOD COUNT 16.7 K/uL (4.8-10.8)
[2016-09-02 06:39] LABS: ALBUMIN 2.4 g/dL (3.5-5.0)
[2016-09-02 06:41] LABS: GFR AFRICAN-AMERICAN > 60; GFR NON-AFRICAN AMERICAN > 60
[2016-09-02 06:42] LABS: ALB/GLOB RATIO 0.8 (1.0-2.1); ALT/SGPT 30 U/L (9-52); AST/SGOT 22 U/L (14-36); BLOOD UREA NITROGEN 29 mg/dL (7-17); CALCIUM 7.8 mg/dl (8.6-10.4)
--- NOTE | 2016-09-02 07:16 | CP.CCUPN ---
<Sierra Waters - Last Filed: 09/02/16 07:59> CCU Subjective - Physician Review Subjective (Free Text): 09/02/16 07:59 Patient seen and examined at bedside. No acute events overnight and patient afebrile overnight. Patient on BiPAP and tolerating but requires frequent suctioning. She is receiving feeds through NGT @ 35cc/hr Patient is awake and responsive. She denies any pain but admits to feeling very weak. Blinks eyes and nods head to respond Patient is making good urine and has had some small BMs. Complete ROS unobtainable CCU Objective - Vital Signs / Intake & Output Vital Signs (Last 4 hours): Vital Signs Temp Pulse Resp BP Pulse Ox 09/02/16 06:03 66 26 H 114/85 09/02/16 05:41 76 09/02/16 05:03 110/56 L 09/02/16 05:00 64 24 96 09/02/16 04:03 69 27 H 113/44 L 99 09/02/16 04:00 97.9 F 100 Intake and Output (Last 8hrs): Intake & Output 09/01/16 09/02/16 09/02/16 22:59 06:59 14:59 Intake Total 490 600 Output Total 1600 365 Balance -1110 235 Weight 110 lb 3.698 oz Intake: Intake, IV Amount 100 Right PICC 100 Oral 60 220 Tube Feeding 280 280 Other 150 Output: Urine 1600 365 Urethral (Jones) 1600 365 Other: # Bowel Movements 1 1 - Physical Exam Head: Positive for: Normocephalic, Ecchymosis, Other (Contusions over left side of face healing). Negative for: Atraumatic Pupils: Positive for: PERRL Extroacular Muscles: Positive for: EOMI Conjunctiva: Positive for: Normal. Negative for: Injected, Icteric Mouth: Positive for: Dry, Other (BiPAP in place) Nose (External): Positive for: Other (NGT in place) Neck: Negative for: JVD, Bruit Respiratory/Chest: Positive for: Good Air Exchange, Decreased Breath Sounds ( bibasilar R > L). Negative for: Clear to Auscultation, Respiratory Distress, Accessory Muscle Use, Wheezes, Retracting, Rhonchi Cardiovascular: Positive for: Regular Rate and Rhythm, Normal S1, S2, Peripheal Pulses Present. Negative for: Murmurs, Irregular Rhythm Abdomen: Positive for: Normal Bowel Sounds. Negative for: Tenderness, Distention, Peritoneal Signs, Rebound, Guarding Upper Extremity: Positive for: Normal Inspection, NORMAL PULSES. Negative for: Edema Lower Extremity: Positive for: NORMAL PULSES, Deformity (right leg shortened and externally rotated ), Other (grimaces when b/l hips palpated; offloading boots and SCDs in place and secure). Negative for: Normal Inspection, Edema, Normal ROM Neurological: Positive for: Other (alert and responsive but too weak to carry conversation). Negative for: Speech Normal Skin: Positive for: Warm, Dry, Normal Color, Other (b/l ecchymosis on face noted ). Negative for: Rashes Psychiatric: Positive for: Alert (responds to name ) - Medications Active Medications: Active Medications Generic Name Dose Route Start Last Admin Trade Name Freq PRN Reason Stop Dose Admin Acetaminophen 650 mg 08/14/16 23:50 08/25/16 00:45 Tylenol 650mg/20.3ml Solution Ud PO 650 mg Q6H PRN Administration temp.100.4&above;mild pain 1-3 Albuterol/Ipratropium 3 ml 08/16/16 14:00 09/02/16 01:04 Duoneb 3 Mg/0.5 Mg (3 Ml) Ud INH 3 ml RQ6 [place] Administration Digoxin 0.25 mg 08/30/16 18:00 09/01/16 17:20 Lanoxin PO 0.25 mg DAILY@1800 [facility] Administration Furosemide 40 mg 08/28/16 15:38 09/01/16 16:00 Lasix IVP 40 mg Q48H [place] Administration Heparin Sodium (Porcine) 5,000 units 08/28/16 22:00 09/01/16 23:00 Heparin SC 5,000 units Q12 [facility] Administration Fluconazole 100 mls @ 100 mls/hr 08/27/16 10:15 09/01/16 09:12 Diflucan Iv 200 Mg/100 Ml Ns IVPB 100 mls/hr DAILY [facility] Administration Tigecycline 50 mg/ Sodium 100 mls @ 100 mls/hr 09/01/16 12:00 09/01/16 23:50 Chloride IVPB 100 mls/hr Q12H [place] Administration Lisinopril 5 mg 08/17/16 10:00 09/01/16 09:15 Zestril PO 5 mg DAILY [place] Administration Metoprolol Tartrate 25 mg 08/12/16 18:00 09/01/16 17:19 Lopressor PO 25 mg BID [place] Administration Pantoprazole Sodium 40 mg 08/27/16 06:00 09/02/16 06:00 Protonix Susp PO 40 mg 0600 [place] Administration - Patient Studies Lab Studies: Lab Studies 09/02/16 09/02/16 09/01/16 Range/Units 06:16 06:16 06:09 WBC 16.7 H (4.8-10.8) K/uL RBC 3.10 L (3.80-5.20) Mil/uL Hgb 10.8 L (11.0-16.0) g/dL Hct 33.2 L (34.0-47.0) % MCV 107.0 H (81.0-99.0) fL MCH 34.7 H (27.0-31.0) pg MCHC 32.4 L (33.0-37.0) g/dL RDW 16.0 H (11.5-14.5) % Plt Count 291 (130-400) K/uL MPV 10.3 (7.2-11.7) fL Neut % (Auto) 92.8 H (50.0-75.0) % Lymph % (Auto) 2.8 L (20.0-40.0) % Irion % (Auto) 4.0 (0.0-10.0) % Eos % (Auto) 0.1 (0.0-4.0) % Baso % (Auto) 0.3 (0.0-2.0) % Neut # 15.5 H (1.8-7.0) K/uL Lymph # 0.5 L (1.0-4.3) K/uL Irion # 0.7 (0.0-0.8) K/uL Eos # 0.0 (0.0-0.7) K/uL Baso # 0.0 (0.0-0.2) K/uL Neutrophils % (Manual) (50-75) % Band Neutrophils % (0-2) % Lymphocytes % (Manual) (20-40) % Monocytes % (Manual) (0-10) % Eosinophils % (Manual) (0-4) % Platelet Estimate (NORMAL) Sodium 134 (132-148) mmol/L Potassium 4.2 (3.6-5.2) mmol/L Chloride 97 L (98-107) mmol/L Carbon Dioxide 37 H (22-30) mmol/L Anion Gap 4 L (10-20) BUN 29 H (7-17) mg/dL Creatinine 0.4 L (0.7-1.2) MG/DL Est GFR ( Amer) > 60 Est GFR (Non-Af Amer) > 60 Random Glucose 115 H (65-105) mg/dL Calcium 7.8 L (8.6-10.4) mg/dl Phosphorus 3.1 (2.5-4.5) mg/dL Magnesium 2.0 (1.6-2.3) mg/dL Total Bilirubin 0.5 (0.2-1.3) mg/dL AST 22 (14-36) U/L ALT 30 (9-52) U/L Alkaline Phosphatase 176 H (38-126) U/L Total Protein 5.5 L (6.3-8.3) g/dL Albumin 2.4 L (3.5-5.0) g/dL Globulin 3.1 (2.2-3.9) gm/dL Albumin/Globulin Ratio 0.8 L (1.0-2.1) Procalcitonin 0.12 L (0.19-0.49) NG/ML 09/01/16 Range/Units 06:09 WBC (4.8-10.8) K/uL RBC (3.80-5.20) Mil/uL Hgb (11.0-16.0) g/dL Hct (34.0-47.0) % MCV (81.0-99.0) fL MCH (27.0-31.0) pg MCHC (33.0-37.0) g/dL RDW (11.5-14.5) % Plt Count (130-400) K/uL MPV (7.2-11.7) fL Neut % (Auto) (50.0-75.0) % Lymph % (Auto) (20.0-40.0) % Irion % (Auto) (0.0-10.0) % Eos % (Auto) (0.0-4.0) % Baso % (Auto) (0.0-2.0) % Neut # (1.8-7.0) K/uL Lymph # (1.0-4.3) K/uL Irion # (0.0-0.8) K/uL Eos # (0.0-0.7) K/uL Baso # (0.0-0.2) K/uL Neutrophils % (Manual) 86 H (50-75) % Band Neutrophils % 1 (0-2) % Lymphocytes % (Manual) 5 L (20-40) % Monocytes % (Manual) 7 (0-10) % Eosinophils % (Manual) 1 (0-4) % Platelet Estimate Normal (NORMAL) Sodium (132-148) mmol/L Potassium (3.6-5.2) mmol/L Chloride (98-107) mmol/L Carbon Dioxide (22-30) mmol/L Anion Gap (10-20) BUN (7-17) mg/dL Creatinine (0.7-1.2) MG/DL Est GFR ( Amer) Est GFR (Non-Af Amer) Random Glucose (65-105) mg/dL Calcium (8.6-10.4) mg/dl Phosphorus (2.5-4.5) mg/dL Magnesium (1.6-2.3) mg/dL Total Bilirubin (0.2-1.3) mg/dL AST (14-36) U/L ALT (9-52) U/L Alkaline Phosphatase (38-126) U/L Total Protein (6.3-8.3) g/dL Albumin (3.5-5.0) g/dL Globulin (2.2-3.9) gm/dL Albumin/Globulin Ratio (1.0-2.1) Procalcitonin (0.19-0.49) NG/ML Laboratory Results - last 24 hr 09/01/16 09/01/16 09/02/16 06:09 06:09 06:16 WBC 16.7 H RBC 3.10 L Hgb 10.8 L Hct 33.2 L MCV 107.0 H MCH 34.7 H MCHC 32.4 L RDW 16.0 H Plt Count 291 MPV 10.3 Neut % (Auto) 92.8 H Lymph % (Auto) 2.8 L Irion % (Auto) 4.0 Eos % (Auto) 0.1 Baso % (Auto) 0.3 Neut # 15.5 H Lymph # 0.5 L Irion # 0.7 Eos # 0.0 Baso # 0.0 Neutrophils % (Manual) 86 H Band Neutrophils % 1 Lymphocytes % (Manual) 5 L Monocytes % (Manual) 7 Eosinophils % (Manual) 1 Platelet Estimate Normal Sodium Potassium Chloride Carbon Dioxide Anion Gap BUN Creatinine Est GFR ( Amer) Est GFR (Non-Af Amer) Random Glucose Calcium Phosphorus Magnesium Total Bilirubin AST ALT Alkaline Phosphatase Total Protein Albumin Globulin Albumin/Globulin Ratio Procalcitonin 0.12 L 09/02/16 06:16 WBC RBC Hgb Hct MCV MCH MCHC RDW Plt Count MPV Neut % (Auto) Lymph % (Auto) Irion % (Auto) Eos % (Auto) Baso % (Auto) Neut # Lymph # Irion # Eos # Baso # Neutrophils % (Manual) Band Neutrophils % Lymphocytes % (Manual) Monocytes % (Manual) Eosinophils % (Manual) Platelet Estimate Sodium 134 Potassium 4.2 Chloride 97 L Carbon Dioxide 37 H Anion Gap 4 L BUN 29 H Creatinine 0.4 L Est GFR ( Amer) > 60 Est GFR (Non-Af Amer) > 60 Random Glucose 115 H Calcium 7.8 L Phosphorus 3.1 Magnesium 2.0 Total Bilirubin 0.5 AST 22 ALT 30 Alkaline Phosphatase 176 H Total Protein 5.5 L Albumin 2.4 L Globulin 3.1 Albumin/Globulin Ratio 0.8 L Procalcitonin Review of Systems - Review of Systems Systems not reviewed;Unavailable: Acuity of Condition Assessment/Plan - Assessment and Plan (Free Text) Assessment: 76 F PMHx HTN, A. fib, COPD, anxiety, recurrent falls admitted for sepsis from UTI and bilateral hip fractures Plan: Neuro: -Responds to name and follows simple commands- blinks eyes and nods head to reply to questions -no acute issues -Head CT 08/15: negative Pulm: -BiPAP (12, 6, 45%) -CXR 09/01: biapical pleural thickening with upper lobe granulomatous changes. Diffuse increased IS lung markings. Hyperinflation suggestive for COPD and/or emphysematous changes. Scattered nodules/nodular densities throughout both lungs. Prominent consolidative changes within the L lung base and R infrahilar region. Small to moderate L pleural effusion -Chest pigtail catheter placed 08/19 for large R pleural effusion- removed 08/23 -s/p thoracentesis of pleural effusion 08/19 WBC 12 RBC 219 Neutrophils 25 Lymphocytes 63 Monocytes 12 Fluid comment: few macrophages and mesothelials Total protein < 3 LDH 43 Glucose 106 -sputum culture (08/14/16): Yeast species. -Duoneb 3ml inh q6 -Diflucan 200mg IV daily x 14 days Cardiovascular: -CHF exacerbation resolved as per cardio proBNP 47047 (08/10)--> 86208 (08/12)--> 7010 (08/26) -nonischemic cardiomyopathy -Echo 08/14: LA, LV, RA, RV appear normal; moderate to severe L systolic dysfunction; mitral, TV, Aortic valve normal; mild MR, TR with calculated pulmonary systolic pressure of 54mm consistent with mod pulmonary HTN; IVC is WNL; minimal anterior echo free space probably fat -s/p cardiorespiratory arrest 08/14/16 with successful resuscitation -Cardiac cath 08/13: nonischemic cardiomyopathy with EF 15-20%; 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; great collaterals from L to R system; no coronary intervention -Echo 08/09: EF 25-30%; LV systolic function severely imparied; global hypokinesia more pronounced in anterospetal area; Grade I abnl relaxation pattern on transmitral doppler flow; MR moderate to severe; mild pulm HTN -Digoxin 0.25mg po daily -Lisinopril 5mg po daily -Lopressor 25mg po bid -Lasix 40mg ivp every other day -Patient given albumin one time 08/26 Heme: -H&H stable -transfuse if needed preop Renal: -making good urine with jones in place -Lasix 40mg Q48h ivp Endo: -no acute issues GI: -NGT feedings @ 35cc/hr tolerating with no residuals MSK: -b/l hip fracture -hold surgical intervention until medically optimized ID: -WBC trending up 16.7 this AM -repeat procalcitonin 09/01 is 0.12 -procalcitonin 08/26 was 2.31 -Urine: +VRE Faecium -Tigecycline 50mg ivpb q12 -Tylenol for temp 650mg po q6 prn -sputum culture 6/8: Yeast species. -Diflucan 200mg IV daily x 14 days DVT proph: Heparin 5000u sc q12 GI proph: Protonix 40mg po daily Code status: full code Case discussed with Dr Zak Waters PGY2 <Maurizio Brush S - Last Filed: 09/02/16 16:34> CCU Objective - Vital Signs / Intake & Output Vital Signs (Last 4 hours): Vital Signs Temp Pulse Resp BP Pulse Ox 09/02/16 16:00 98.4 F 76 16 102/51 L 99 09/02/16 15:00 89 16 99/60 L 99 09/02/16 14:00 62 15 98/57 L 100 09/02/16 13:00 59 L 16 94/47 L 100 Intake and Output (Last 8hrs): Intake & Output 09/02/16 09/02/16 09/02/16 06:59 14:59 22:59 Intake Total 600 275 35 Output Total 365 30 Balance 235 245 35 Weight 110 lb 3.698 oz Intake: Intake, IV Amount 100 100 Right PICC 100 100 Oral 220 Tube Feeding 280 175 35 Output: Urine 365 30 Urethral (Jones) 365 30 Other: # Bowel Movements 1 - Medications Active Medications: Active Medications Generic Name Dose Route Start Last Admin Trade Name Freq PRN Reason Stop Dose Admin Acetaminophen 650 mg 08/14/16 23:50 08/25/16 00:45 Tylenol 650mg/20.3ml Solution Ud PO 650 mg Q6H PRN Administration temp.100.4&above;mild pain 1-3 Albuterol/Ipratropium 3 ml 08/16/16 14:00 09/02/16 14:07 Duoneb 3 Mg/0.5 Mg (3 Ml) Ud INH 3 ml RQ6 [place] Administration Digoxin 0.25 mg 08/30/16 18:00 09/01/16 17:20 Lanoxin PO 0.25 mg DAILY@1800 [place] Administration Furosemide 40 mg 08/28/16 15:38 09/01/16 16:00 Lasix IVP 40 mg Q48H [place] Administration Heparin Sodium (Porcine) 5,000 units 08/28/16 22:00 09/02/16 09:42 Heparin SC 5,000 units Q12 [place] Administration Tigecycline 50 mg/ Sodium 100 mls @ 100 mls/hr 09/01/16 12:00 06/27/17 12:58 Chloride IVPB 100 mls/hr Q12H [place] Administration Lisinopril 5 mg 08/17/16 10:00 09/02/16 09:42 Zestril PO 5 mg DAILY [place] Administration Metoprolol Tartrate 25 mg 08/12/16 18:00 09/02/16 09:41 Lopressor PO 25 mg BID [place] Administration Pantoprazole Sodium 40 mg 08/27/16 06:00 09/02/16 06:00 Protonix Susp PO 40 mg 0600 [place] Administration - Patient Studies Lab Studies: Lab Studies 09/02/16 09/02/16 09/02/16 Range/Units 09:40 06:16 06:16 WBC 16.7 H (4.8-10.8) K/uL RBC 3.10 L (3.80-5.20) Mil/uL Hgb 10.8 L (11.0-16.0) g/dL Hct 33.2 L (34.0-47.0) % MCV 107.0 H (81.0-99.0) fL MCH 34.7 H (27.0-31.0) pg MCHC 32.4 L (33.0-37.0) g/dL RDW 16.0 H (11.5-14.5) % Plt Count 291 (130-400) K/uL MPV 10.3 (7.2-11.7) fL Neut % (Auto) 92.8 H (50.0-75.0) % Lymph % (Auto) 2.8 L (20.0-40.0) % Irion % (Auto) 4.0 (0.0-10.0) % Eos % (Auto) 0.1 (0.0-4.0) % Baso % (Auto) 0.3 (0.0-2.0) % Neut # 15.5 H (1.8-7.0) K/uL Lymph # 0.5 L (1.0-4.3) K/uL Irion # 0.7 (0.0-0.8) K/uL Eos # 0.0 (0.0-0.7) K/uL Baso # 0.0 (0.0-0.2) K/uL Neutrophils % (Manual) 91 H (50-75) % Band Neutrophils % 4 H (0-2) % Lymphocytes % (Manual) 1 L (20-40) % Monocytes % (Manual) 4 (0-10) % Platelet Estimate Normal (NORMAL) Hypochromasia (manual) Slight Poikilocytosis (manual Slight Anisocytosis (manual) Slight Puncture Site Rr pCO2 54 H (35-45) mm/Hg pO2 38 L* (80-100) mm/Hg HCO3 32.5 H (21-28) mmol/L ABG pH 7.44 (7.35-7.45) ABG Total CO2 38.4 H (22-28) mmol/L ABG O2 Saturation 80.0 L (95-98) % ABG Base Excess 10.5 H (-2.0-3.0) mmol/L Seng Test Po ABG Potassium 4.1 (3.6-5.2) mmol/L A-a O2 Difference 215.0 mm/Hg Respiratory Index 5.7 Glucose 151 H (65-105) mg/dl Lactate 0.7 (0.7-2.1) mmol/L FiO2 45.0 % Inspiratory BiPAP 12 Expiratory BiPAP 6 Crit Value Called To Dr. brush Crit Value Called By Chadd gonzalez Crit Value Read Back Y Blood Gas Notified Time 943 Sodium 138.0 134 (132-148) mmol/L Potassium 4.2 (3.6-5.2) mmol/L Chloride 104.0 97 L (98-107) mmol/L Carbon Dioxide 37 H (22-30) mmol/L Anion Gap 4 L (10-20) BUN 29 H (7-17) mg/dL Creatinine 0.4 L (0.7-1.2) MG/DL Est GFR ( Amer) > 60 Est GFR (Non-Af Amer) > 60 Random Glucose 115 H (65-105) mg/dL Calcium 7.8 L (8.6-10.4) mg/dl Phosphorus 3.1 (2.5-4.5) mg/dL Magnesium 2.0 (1.6-2.3) mg/dL Total Bilirubin 0.5 (0.2-1.3) mg/dL AST 22 (14-36) U/L ALT 30 (9-52) U/L Alkaline Phosphatase 176 H (38-126) U/L Total Protein 5.5 L (6.3-8.3) g/dL Albumin 2.4 L (3.5-5.0) g/dL Globulin 3.1 (2.2-3.9) gm/dL Albumin/Globulin Ratio 0.8 L (1.0-2.1) Arterial Blood Potassium 4.1 (3.6-5.2) mmol/L Laboratory Results - last 24 hr 09/02/16 09/02/16 09/02/16 06:16 06:16 09:40 WBC 16.7 H RBC 3.10 L Hgb 10.8 L Hct 33.2 L MCV 107.0 H MCH 34.7 H MCHC 32.4 L RDW 16.0 H Plt Count 291 MPV 10.3 Neut % (Auto) 92.8 H Lymph % (Auto) 2.8 L Irion % (Auto) 4.0 Eos % (Auto) 0.1 Baso % (Auto) 0.3 Neut # 15.5 H Lymph # 0.5 L Irion # 0.7 Eos # 0.0 Baso # 0.0 Neutrophils % (Manual) 91 H Band Neutrophils % 4 H Lymphocytes % (Manual) 1 L Monocytes % (Manual) 4 Platelet Estimate Normal Hypochromasia (manual) Slight Poikilocytosis (manual Slight Anisocytosis (manual) Slight Puncture Site Rr pCO2 54 H pO2 38 L* HCO3 32.5 H ABG pH 7.44 ABG Total CO2 38.4 H ABG O2 Saturation 80.0 L ABG Base Excess 10.5 H Seng Test Po ABG Potassium 4.1 A-a O2 Difference 215.0 Respiratory Index 5.7 Glucose 151 H Lactate 0.7 FiO2 45.0 Inspiratory BiPAP 12 Expiratory BiPAP 6 Crit Value Called To Dr. brush Crit Value Called By Chadd gonzalez Crit Value Read Back Y Blood Gas Notified Time 943 Sodium 134 138.0 Potassium 4.2 Chloride 97 L 104.0 Carbon Dioxide 37 H Anion Gap 4 L BUN 29 H Creatinine 0.4 L Est GFR ( Amer) > 60 Est GFR (Non-Af Amer) > 60 Random Glucose 115 H Calcium 7.8 L Phosphorus 3.1 Magnesium 2.0 Total Bilirubin 0.5 AST 22 ALT 30 Alkaline Phosphatase 176 H Total Protein 5.5 L Albumin 2.4 L Globulin 3.1 Albumin/Globulin Ratio 0.8 L Arterial Blood Potassium 4.1 Assessment/Plan (1) Acute respiratory failure Current Visit: Yes Status: Acute Comment: Status post extubation yesterday and placed on BiPAP Continue antibiotics Start feeding after NG tube placement Followup ABG and chest x-ray Patient has risk for surgery (2) CHF exacerbation Current Visit: Yes Status: Resolved (3) Closed fracture of greater trochanter of left femur Current Visit: Yes Status: Acute (4) Garden grade IV closed subcapital fracture of proximal end of right femur Current Visit: Yes Status: Acute Attending/Attestation - Attestation I have personally seen and examined this patient.: Yes I have fully participated in the care of the patient.: Yes I have reviewed all pertinent clinical information: Yes Notes (Text): 09/02/16 16:33 Patient seen and examined in the intensive care Unit. Case discussed with house staff in the morning rounds Patient intubated for not tolerating BiPAP/hypoxemia Patient DNR/DNi Continue ventilatory support Prognosis poor
[2016-09-02 08:18] LABS: BANDS 4 % (0-2); LYMPHOCYTE 1 % (20-40); MONOCYTE 4 % (0-10); NEUTROPHIL 91 % (50-75); PLATELET ESTIMATE NORMAL (NORMAL); TOTAL CELLS COUNTED 100
[2016-09-02 08:19] LABS: ANISOCYTOSIS SLIGHT; HYPOCHROMIC SLIGHT; POIKILOCYTOSIS SLIGHT
--- NOTE | 2016-09-02 08:24 | CP.PCM.PN ---
Subjective - Date & Time of Evaluation Date of Evaluation: 09/02/16 Time of Evaluation: 08:21 - Subjective Subjective: Patient weak on CPAP, for intubation today. Objective - Vital Signs/Intake and Output Vital Signs (last 24 hours): Temp Pulse Resp BP Pulse Ox 97.9 F 84 25 H 119/88 96 09/02/16 04:00 09/02/16 08:05 09/02/16 07:04 09/02/16 07:04 09/02/16 05:00 Intake and Output: 09/02/16 09/02/16 06:59 18:59 Intake Total 800 35 Output Total 565 30 Balance 235 5 - Medications Medications: Current Medications Acetaminophen (Tylenol 650mg/20.3ml Solution Ud) 650 mg PO Q6H PRN PRN Reason: temp.100.4&above;mild pain 1-3 Last Admin: 08/25/16 00:45 Dose: 650 mg Albuterol/Ipratropium (Duoneb 3 Mg/0.5 Mg (3 Ml) Ud) 3 ml INH RQ6 [facility] Last Admin: 09/02/16 08:05 Dose: 3 ml Digoxin (Lanoxin) 0.25 mg PO DAILY@1800 [facility] Last Admin: 09/01/16 17:20 Dose: 0.25 mg Furosemide (Lasix) 40 mg IVP Q48H [facility] Last Admin: 09/01/16 16:00 Dose: 40 mg Heparin Sodium (Porcine) (Heparin) 5,000 units SC Q12 [facility] Last Admin: 09/01/16 23:00 Dose: 5,000 units Fluconazole (Diflucan Iv 200 Mg/100 Ml Ns) 100 mls @ 100 mls/hr IVPB DAILY [facility] Last Admin: 09/01/16 09:12 Dose: 100 mls/hr Tigecycline 50 mg/ Sodium (Chloride) 100 mls @ 100 mls/hr IVPB Q12H [facility] Last Admin: 09/01/16 23:50 Dose: 100 mls/hr Lisinopril (Zestril) 5 mg PO DAILY [facility] Last Admin: 09/01/16 09:15 Dose: 5 mg Metoprolol Tartrate (Lopressor) 25 mg PO BID [facility] Last Admin: 09/01/16 17:19 Dose: 25 mg Pantoprazole Sodium (Protonix Susp) 40 mg PO 0600 [facility] Last Admin: 09/02/16 06:00 Dose: 40 mg - Labs Labs: 09/02/16 06:16 09/02/16 06:16 PT 10.6 SECONDS (9.7-12.2) 08/21/16 06:11 INR 1.0 08/21/16 06:11 APTT 29 SECONDS (21-34) 08/21/16 06:11 - Extremities Exam Additional comments: BLE: +ROM ankle/toes, sensation intact, calves soft NTneg homans, venodynes intact TTP left greater troch, no obvious swelling. Assessment and Plan (1) Garden grade IV closed subcapital fracture of proximal end of right femur Assessment & Plan: Awaiting medical optimization for right hip surgery VTE proph med/palliative care f/u appreciated awaiting clearance, for intubation today d/w Dr. Elena agrees with above Status: Acute (2) Degenerative joint disease of right hip Status: Chronic (3) Closed fracture of greater trochanter of left femur Assessment & Plan: non operative repeated xrays reviewed, acceptable position, minimally displaced Status: Acute Radiology Interpretation - Casing Blower Casing Blower:: Radiologist, Drawing Tender - Radiology Interpretation #2 Interpretation: Patient Name / ID : HORACE Emanuel / [id number] Exam Date : 09/01/2016 08:58:40 ( Approved ) Study Comment : Sex / Age : F / [id number] Creator : Thi Vera MD Dictator : Thi Vera MD Ruby Engineer : Civil Engineering Drafter : Thi Vera MD Approver2 : Report Date : 09/01/2016 14:51:23 My Comment : PROCEDURE: Radiographs of the pelvis and bilateral hips HISTORY: f/u left greater trochanter fracture COMPARISON: None. FINDINGS: BONES: There is redemonstration of a subcapital fracture. There is interval approximately half shaft with lateral displacement of the proximal femur and 11 mm distraction of fracture fragments. Bone alignment is normal. There is diffuse bone demineralization. 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 The sacroiliac joints are normal. SOFT TISSUES: Normal. OTHER FINDINGS: None. IMPRESSION: Redemonstration of subcapital femoral fracture and interval development of mental approximately high of shaft with lateral displacement of proximal femur. - Radiology Interpretation #3 Interpretation: Noted again is left greater trochanteric fracture, minimally displaced and position maintained.
[2016-09-02] MEDS: Fluconazole IV 200mg/100 ml NS 100 ML IVPB SCH (09:39)
[2016-09-02 09:44] LABS: ABG ALLEN TEST PO; ARTERIAL BLOOD GAS HCO3 32.5 mmol/L (21-28); ARTERIAL BLOOD GAS PCO2 54 mm/Hg (35-45); ARTERIAL BLOOD GAS PH 7.44 (7.35-7.45); ARTERIAL BLOOD GAS PO2 38 mm/Hg (80-100); ARTERIAL BLOOD GAS TCO2 38.4 mmol/L (22-28)
[2016-09-02] MEDS ORDERED: Propofol 10 mg/ml Inj (20 ML) ONE (10:03)
[2016-09-02] MEDS ORDERED: Etomidate 20 mg/10ml Inj IV ONE (10:10)
[2016-09-02] MEDS ORDERED: Propofol 10 mg/ml Inj (20 ML) IV ONE (10:11)
[2016-09-02] MEDS ORDERED: Succinylcholine Chloride 20 mg/ml Syr (5 ml) IV ONE (10:11)
--- NOTE | 2016-09-02 10:13 | PCM.PROC ---
Procedures Attestation:: I certify that I have explained the specified Operation(s) or Procedure(s), risks, benefits and reasonable alternatives to the Patient and/or other person responsible. The opportunity was given to ask questions and all questions answered - Intubation Time Out Performed: Yes Sedative: Etomidate Paralytic: Succinylholine Laryngoscope: Esteban ET Tube Size: 7.5 ET Tube Uncuffed: Yes ET Tube Secured Locarion: Lips ET Tube Placement Confirmation: Visualized Passing Through Cords, Breath Sounds Equal Bilaterally, No Breath Sounds Over Epigastrum, Confirmation w/Capnometry Patient Tolerated Procedure: No Complications Procedure Immediate Complications: None Additional comments: CXR ordered Intubation was done with patient consent and under guidance and supervision of dry placer machine operator Dr. Crespo
--- NOTE | 2016-09-02 10:19 | CP.PCM.PN ---
Subjective - Date & Time of Evaluation Date of Evaluation: 09/02/16 Time of Evaluation: 10:17 - Subjective Subjective: Patient appears very weak, pale and on BiPap, Intubation for respiratory support pending. Patient makes eye contacts and is noding her head for " yes" to intubation. Objective - Vital Signs/Intake and Output Vital Signs (last 24 hours): Temp Pulse Resp BP Pulse Ox 97.4 F L 84 19 130/70 98 09/02/16 08:00 09/02/16 08:05 09/02/16 08:00 09/02/16 09:41 09/02/16 08:00 Intake and Output: 09/02/16 09/02/16 06:59 18:59 Intake Total 800 70 Output Total 565 30 Balance 235 40 - Medications Medications: Current Medications Acetaminophen (Tylenol 650mg/20.3ml Solution Ud) 650 mg PO Q6H PRN PRN Reason: temp.100.4&above;mild pain 1-3 Last Admin: 08/25/16 00:45 Dose: 650 mg Albuterol/Ipratropium (Duoneb 3 Mg/0.5 Mg (3 Ml) Ud) 3 ml INH RQ6 [facility] Last Admin: 09/02/16 08:05 Dose: 3 ml Digoxin (Lanoxin) 0.25 mg PO DAILY@1800 [facility] Last Admin: 09/01/16 17:20 Dose: 0.25 mg Etomidate (Amidate) 20 mg IV ONCE ONE Stop: 09/02/16 10:11 Furosemide (Lasix) 40 mg IVP Q48H [facility] Last Admin: 09/01/16 16:00 Dose: 40 mg Heparin Sodium (Porcine) (Heparin) 5,000 units SC Q12 [facility] Last Admin: 09/02/16 09:42 Dose: 5,000 units Tigecycline 50 mg/ Sodium (Chloride) 100 mls @ 100 mls/hr IVPB Q12H [facility] Last Admin: 09/01/16 23:50 Dose: 100 mls/hr Lisinopril (Zestril) 5 mg PO DAILY [facility] Last Admin: 09/02/16 09:42 Dose: 5 mg Metoprolol Tartrate (Lopressor) 25 mg PO BID [facility] Last Admin: 09/02/16 09:41 Dose: 25 mg Pantoprazole Sodium (Protonix Susp) 40 mg PO 0600 [facility] Last Admin: 09/02/16 06:00 Dose: 40 mg Propofol (Diprivan) 200 mg IV ONCE ONE Stop: 09/02/16 10:12 Succinylcholine Chloride (Quelicin) 50 mg IV ONCE ONE Stop: 09/02/16 10:12 - Labs Labs: 09/02/16 06:16 09/02/16 06:16 PT 10.6 SECONDS (9.7-12.2) 08/21/16 06:11 INR 1.0 08/21/16 06:11 APTT 29 SECONDS (21-34) 08/21/16 06:11 - Constitutional Appears: In Acute Distress - Head Exam Head Exam: ATRAUMATIC, NORMAL INSPECTION, NORMOCEPHALIC - Eye Exam Eye Exam: EOMI, Normal appearance, PERRL Pupil Exam: NORMAL ACCOMODATION, PERRL - ENT Exam ENT Exam: Mucous Membranes Dry - Neck Exam Neck Exam: Normal Inspection - Respiratory Exam Respiratory Exam: Accessory Muscle Use, Decreased Breath Sounds - Cardiovascular Exam Cardiovascular Exam: Tachycardia, REGULAR RHYTHM, +S1, +S2 - GI/Abdominal Exam GI & Abdominal Exam: Soft, Normal Bowel Sounds - Rectal Exam Rectal Exam: Deferred - Extremities Exam Extremities Exam: Normal Capillary Refill, Normal Inspection - Back Exam Back Exam: NORMAL INSPECTION - Neurological Exam Neurological Exam: Alert, Awake Neuro motor strength exam: Left Upper Extremity: 2/1, Right Upper Extremity: 2/1 , Left Lower Extremity: 2/1, Right Lower Extremity: 0 - Psychiatric Exam Psychiatric exam: Normal Affect, Normal Mood - Skin Skin Exam: Cyanosis, Pallor Assessment and Plan - Assessment and Plan (Free Text) Assessment: Patient examined in bed, alert, makes eye contacts. As per ICU team patient has been desaturating and would need MV support. O2Sat goes down to low 90s high 80s on BiPap. Skin is pale and cool to touch. HR 84. I spoke to patient explaining her the need for intubation. patient blinked her eyes acknowledging it. I remained patient of her previously stated wishes against aggressive measures if recovery not expected. She blinked again. Patient also signaled to me to let her sister Baby Brennan know. I called patient's sister Baby Brennan ( [phone]) to inform her about the need for vent support again. She agreed and was coming in later . We will discuss Code status with her. Impression * This is a very fragile lady with multiple intubation on this admission for respiratory support * Patient is being treated for CHF exacerbation and Pneumonia * Prior to this last intubation patient was alert and agreed to it Suggestion * If patient does not show signs of improvement after this last MV support I would consider measures to allow her natural * Further goals of care to be discussed today with patient;s sister Baby Brennan
--- NOTE | 2016-09-02 12:07 | RAD ---
Chest x-ray single frontal view History: Intubation. Comparison: 09/01/2016 Findings: Moderate to large left and trace right pleural effusion. Diffuse chronic interstitial lung markings. Biapical pleural thickening with upper lobe granulomatous changes. Hyperinflation suggestive for COPD and or emphysematous changes. Prominent patchy consolidative changes in the right mid lung zone and right lung base. Scattered nodular densities throughout both lungs. Bibasilar breast and nipple shadows. Calcification at the aortic knob. Cardiomegaly. Degenerative changes in the spine and shoulders. Endotracheal tube extending into the mid thoracic trachea. Other lines and tubes in stable position. Impression: Moderate to large left and trace right pleural effusion. Diffuse chronic interstitial lung markings. Biapical pleural thickening with upper lobe granulomatous changes. Hyperinflation suggestive for COPD and or emphysematous changes. Prominent patchy consolidative changes in the right mid lung zone and right lung base. Scattered nodular densities throughout both lungs. Bibasilar breast and nipple shadows. Calcification at the aortic knob. Cardiomegaly. Degenerative changes in the spine and shoulders. Endotracheal tube extending into the mid thoracic trachea. Other lines and tubes in stable position.
--- NOTE | 2016-09-02 16:41 | CP.PCM.PN ---
Subjective - Date & Time of Evaluation Date of Evaluation: 09/02/16 Time of Evaluation: 16:39 - Subjective Subjective: Patient intubated and back on respirator. Lethargic with copious secretions. CXR : RML and RLL infiltrates Objective - Vital Signs/Intake and Output Vital Signs (last 24 hours): Temp Pulse Resp BP Pulse Ox 98.4 F 76 16 102/51 L 99 09/02/16 16:00 09/02/16 16:00 09/02/16 16:00 09/02/16 16:00 09/02/16 16:00 Intake and Output: 09/02/16 09/02/16 06:59 18:59 Intake Total 800 310 Output Total 565 30 Balance 235 280 - Medications Medications: Current Medications Acetaminophen (Tylenol 650mg/20.3ml Solution Ud) 650 mg PO Q6H PRN PRN Reason: temp.100.4&above;mild pain 1-3 Last Admin: 08/25/16 00:45 Dose: 650 mg Albuterol/Ipratropium (Duoneb 3 Mg/0.5 Mg (3 Ml) Ud) 3 ml INH RQ6 [facility] Last Admin: 09/02/16 14:07 Dose: 3 ml Digoxin (Lanoxin) 0.25 mg PO DAILY@1800 [facility] Last Admin: 09/01/16 17:20 Dose: 0.25 mg Furosemide (Lasix) 40 mg IVP Q48H [facility] Last Admin: 09/01/16 16:00 Dose: 40 mg Heparin Sodium (Porcine) (Heparin) 5,000 units SC Q12 [facility] Last Admin: 09/02/16 09:42 Dose: 5,000 units Tigecycline 50 mg/ Sodium (Chloride) 100 mls @ 100 mls/hr IVPB Q12H [facility] Last Admin: 09/02/16 12:58 Dose: 100 mls/hr Lisinopril (Zestril) 5 mg PO DAILY [facility] Last Admin: 09/02/16 09:42 Dose: 5 mg Metoprolol Tartrate (Lopressor) 25 mg PO BID [facility] Last Admin: 09/02/16 09:41 Dose: 25 mg Pantoprazole Sodium (Protonix Susp) 40 mg PO 0600 [facility] Last Admin: 09/02/16 06:00 Dose: 40 mg - Labs Labs: 09/02/16 06:16 09/02/16 06:16 PT 10.6 SECONDS (9.7-12.2) 08/21/16 06:11 INR 1.0 08/21/16 06:11 APTT 29 SECONDS (21-34) 08/21/16 06:11 - Constitutional Appears: Chronically Ill - Head Exam Head Exam: NORMAL INSPECTION - Eye Exam Additional comments: Left orbital hematoma. - ENT Exam ENT Exam: Normal Exam - Neck Exam Neck Exam: Normal Inspection - Respiratory Exam Additional comments: Rhonchi heard in both lung kerns. - Cardiovascular Exam Cardiovascular Exam: REGULAR RHYTHM - GI/Abdominal Exam GI & Abdominal Exam: Soft, Normal Bowel Sounds - Rectal Exam Rectal Exam: Deferred - Extremities Exam Additional comments: Mild edema of the lower legs. Tender both hips and external rotation of the right leg. - Back Exam Back Exam: NORMAL INSPECTION - Neurological Exam Additional comments: Lethargic. - Psychiatric Exam Additional comments: Lethargic. - Skin Skin Exam: Abrasion Assessment and Plan (1) Closed fracture of greater trochanter of left femur Status: Acute (2) Dehydration Status: Resolved (3) Sepsis Status: Resolved (4) Fall Status: Acute (5) Arrhythmia Status: Resolved (6) Contusion of head Status: Acute (7) Garden grade IV closed subcapital fracture of proximal end of right femur Status: Acute (8) CHF exacerbation Status: Resolved (9) Acute respiratory failure Assessment & Plan: On respirator now. Status: Acute (10) Pleural effusion, right Status: Resolved (11) Right middle lobe pneumonia Assessment & Plan: To continue IV antibiotics as per Dr Stanley. Status: Acute (12) VRE (vancomycin resistant enterococcus) culture positive Status: Acute
[2016-09-02 17:06] LABS: ABG ALLEN TEST POS; ARTERIAL BLOOD GAS HCO3 35.8 mmol/L (21-28); ARTERIAL BLOOD GAS HEMOGLOBIN 9.8 g/dL (11.7-17.4); ARTERIAL BLOOD GAS O2 SAT 99.4 % (95-98); ARTERIAL BLOOD GAS PCO2 43 mm/Hg (35-45); ARTERIAL BLOOD GAS PH 7.55 (7.35-7.45); ARTERIAL BLOOD GAS PO2 90 mm/Hg (80-100); ARTERIAL BLOOD GAS TCO2 38.9 mmol/L (22-28)
[2016-09-02] MEDS: Digoxin 250 mcg (0.25 mg) Tab PO SCH (17:07)
[2016-09-02] MEDS ORDERED: Sodium Chloride 0.9% 1,000 ML IV ONE (23:22)
[2016-09-03] MEDS: Albuterol-Ipratrop 3 mg / 0.5 (3 ml) UD INH SCH ×4 (01:03→19:59)
[2016-09-03 04:42] LABS: ABG ALLEN TEST POS; ARTERIAL BLOOD GAS HEMOGLOBIN 8.4 g/dL (11.7-17.4); ARTERIAL BLOOD GAS O2 SAT 99.8 % (95-98); ARTERIAL BLOOD GAS PCO2 33 mm/Hg (35-45); ARTERIAL BLOOD GAS PH 7.57 (7.35-7.45); ARTERIAL BLOOD GAS PO2 195 mm/Hg (80-100); ARTERIAL BLOOD GAS TCO2 31.2 mmol/L (22-28)
[2016-09-03] MEDS: Pantoprazole 40 mg Susp UD PO SCH (05:15)
[2016-09-03 06:23] LABS: ALBUMIN 2.1 g/dL (3.5-5.0)
[2016-09-03 06:24] LABS: BASO # 0.1 K/uL (0.0-0.2); BASO % 0.4 % (0.0-2.0); EOS % 0.1 % (0.0-4.0); HEMOGLOBIN 9.6 g/dL (11.0-16.0); LYMPH # 0.8 K/uL (1.0-4.3); LYMPH % 5.2 % (20.0-40.0); MEAN CELL VOLUME 106.8 fL (81.0-99.0); MEAN CORPUSCULAR HEMOGLOBIN 34.9 pg (27.0-31.0); MEAN CORPUSCULAR HGB CONC 32.7 g/dL (33.0-37.0); MEAN PLATELET VOLUME 10.2 fL (7.2-11.7); MONO # 0.6 K/uL (0.0-0.8); MONO % 3.9 % (0.0-10.0); NEUT # 13.9 K/uL (1.8-7.0); NEUT % 90.4 % (50.0-75.0); PLATELET COUNT 258 K/uL (130-400); RBC 2.76 Mil/uL (3.80-5.20); WHITE BLOOD COUNT 15.4 K/uL (4.8-10.8)
[2016-09-03 06:25] LABS: GFR AFRICAN-AMERICAN > 60; GFR NON-AFRICAN AMERICAN > 60
[2016-09-03 06:26] LABS: ALB/GLOB RATIO 0.7 (1.0-2.1); ALT/SGPT 28 U/L (9-52); AST/SGOT 25 U/L (14-36); BLOOD UREA NITROGEN 34 mg/dL (7-17)
[2016-09-03 06:27] LABS: CALCIUM 7.6 mg/dl (8.6-10.4); MAGNESIUM 1.9 mg/dL (1.6-2.3)
--- NOTE | 2016-09-03 07:35 | CP.CCUPN ---
<Sierra Waters - Last Filed: 09/03/16 11:39> CCU Subjective - Physician Review Subjective (Free Text): 09/03/16 11:39 Patient seen and examined at bedside. Intubated yesterday on vent (12, 400, 50, 80%) not on any sedation Patient afebrile overnight. Awake and follows commands. Feeds through NGT @ 35cc/hr Complete ROS unobtainable CCU Objective - Vital Signs / Intake & Output Vital Signs (Last 4 hours): Vital Signs Temp Pulse Resp BP Pulse Ox 09/03/16 07:01 73 12 100/45 L 100 09/03/16 06:01 71 12 93/48 L 100 09/03/16 05:02 76 15 118/48 L 100 09/03/16 04:01 102/47 L 09/03/16 04:00 98.1 F 80 17 100 Intake and Output (Last 8hrs): Intake & Output 09/02/16 09/03/16 09/03/16 22:59 06:59 14:59 Intake Total 540 1580 35 Output Total 660 320 Balance -120 1260 35 Intake: Intake, IV Amount 1100 Right PICC 1100 Oral 60 200 Tube Feeding 280 280 35 Other 200 Output: Urine 660 320 Urethral (Jones) 660 320 Other: # Bowel Movements 1 1 - Physical Exam Head: Positive for: Normocephalic, Ecchymosis, Other (Contusions over left side of face healing). Negative for: Atraumatic Pupils: Positive for: PERRL Extroacular Muscles: Positive for: EOMI Conjunctiva: Positive for: Normal. Negative for: Injected, Icteric Mouth: Positive for: Dry, Other (ET tube in place) Nose (External): Positive for: Other (NGT in place) Neck: Negative for: JVD, Bruit Respiratory/Chest: Positive for: Good Air Exchange, Decreased Breath Sounds ( bibasilar R > L), Other (vent sounds heard throughout). Negative for: Clear to Auscultation, Respiratory Distress, Accessory Muscle Use, Wheezes, Retracting, Rhonchi Cardiovascular: Positive for: Regular Rate and Rhythm, Normal S1, S2, Peripheal Pulses Present. Negative for: Murmurs, Irregular Rhythm Abdomen: Positive for: Normal Bowel Sounds. Negative for: Tenderness, Distention, Peritoneal Signs, Rebound, Guarding Upper Extremity: Positive for: Normal Inspection, NORMAL PULSES. Negative for: Edema Lower Extremity: Positive for: NORMAL PULSES, Deformity (right leg shortened and externally rotated ), Other (grimaces when b/l hips palpated; offloading boots and SCDs in place and secure). Negative for: Normal Inspection, Edema, Normal ROM Neurological: Positive for: Other (alert and responsive). Negative for: Speech Normal Skin: Positive for: Warm, Dry, Normal Color, Other (b/l ecchymosis on face noted ). Negative for: Rashes Psychiatric: Positive for: Alert (responds to name ) - Medications Active Medications: Active Medications Generic Name Dose Route Start Last Admin Trade Name Freq PRN Reason Stop Dose Admin Acetaminophen 650 mg 08/14/16 23:50 08/25/16 00:45 Tylenol 650mg/20.3ml Solution Ud PO 650 mg Q6H PRN Administration temp.100.4&above;mild pain 1-3 Albuterol/Ipratropium 3 ml 08/16/16 14:00 09/03/16 01:03 Duoneb 3 Mg/0.5 Mg (3 Ml) Ud INH 3 ml RQ6 [place] Administration Digoxin 0.25 mg 08/30/16 18:00 09/02/16 17:07 Lanoxin PO 0.25 mg DAILY@1800 [place] Administration Furosemide 40 mg 08/28/16 15:38 09/01/16 16:00 Lasix IVP 40 mg Q48H [place] Administration Heparin Sodium (Porcine) 5,000 units 08/28/16 22:00 09/02/16 23:00 Heparin SC 5,000 units Q12 [place] Administration Tigecycline 50 mg/ Sodium 100 mls @ 100 mls/hr 09/01/16 12:00 09/03/16 00:30 Chloride IVPB 100 mls/hr Q12H [place] Administration Lisinopril 5 mg 08/17/16 10:00 09/02/16 09:42 Zestril PO 5 mg DAILY [place] Administration Metoprolol Tartrate 25 mg 08/12/16 18:00 09/02/16 17:06 Lopressor PO Not Given BID [place] Pantoprazole Sodium 40 mg 08/27/16 06:00 09/03/16 05:15 Protonix Susp PO 40 mg 0600 [place] Administration - Patient Studies Lab Studies: Lab Studies 09/03/16 09/03/16 09/03/16 Range/Units 06:03 06:03 04:35 WBC 15.4 H (4.8-10.8) K/uL RBC 2.76 L (3.80-5.20) Mil/uL Hgb 9.6 L (11.0-16.0) g/dL Hct 29.5 L (34.0-47.0) % MCV 106.8 H (81.0-99.0) fL MCH 34.9 H (27.0-31.0) pg MCHC 32.7 L (33.0-37.0) g/dL RDW 16.0 H (11.5-14.5) % Plt Count 258 (130-400) K/uL MPV 10.2 (7.2-11.7) fL Neut % (Auto) 90.4 H (50.0-75.0) % Lymph % (Auto) 5.2 L (20.0-40.0) % [place] % (Auto) 3.9 (0.0-10.0) % Eos % (Auto) 0.1 (0.0-4.0) % Baso % (Auto) 0.4 (0.0-2.0) % Neut # 13.9 H (1.8-7.0) K/uL Lymph # 0.8 L (1.0-4.3) K/uL [place] # 0.6 (0.0-0.8) K/uL Eos # 0.0 (0.0-0.7) K/uL Baso # 0.1 (0.0-0.2) K/uL Neutrophils % (Manual) (50-75) % Band Neutrophils % (0-2) % Lymphocytes % (Manual) (20-40) % Monocytes % (Manual) (0-10) % Platelet Estimate (NORMAL) Hypochromasia (manual) Poikilocytosis (manual Anisocytosis (manual) Puncture Site Rr pCO2 33 L (35-45) mm/Hg pO2 195 H (80-100) mm/Hg HCO3 31.0 H (21-28) mmol/L ABG pH 7.57 H (7.35-7.45) ABG Total CO2 31.2 H (22-28) mmol/L ABG O2 Saturation 99.8 H (95-98) % ABG Base Excess 7.7 H (-2.0-3.0) mmol/L ABG Hemoglobin 8.4 L (11.7-17.4) g/dL ABG Carboxyhemoglobin 1.4 (0.5-1.5) % POC ABG HHb (Measured) 0.2 (0.0-5.0) % ABG Methemoglobin 1.2 (0.0-3.0) % Seng Test Pos ABG Potassium (3.6-5.2) mmol/L A-a O2 Difference 477.0 mm/Hg Respiratory Index 2.4 Hgb O2 Saturation 97.3 (95.0-98.0) % Sodium 135 (132-148) mmol/l Chloride 97 L (98-107) mmol/L Glucose (65-105) mg/dl Lactate (0.7-2.1) mmol/L Mechanical Rate 12 FiO2 100.0 % Tidal Volume 400 PEEP 5 Inspiratory BiPAP Expiratory BiPAP Crit Value Called To Crit Value Called By Crit Value Read Back Blood Gas Notified Time Potassium 4.0 (3.6-5.2) mmol/L Carbon Dioxide 35 H (22-30) mmol/L Anion Gap 7 L (10-20) BUN 34 H (7-17) mg/dL Creatinine 0.5 L (0.7-1.2) MG/DL Est GFR ( Amer) > 60 Est GFR (Non-Af Amer) > 60 Random Glucose 79 (65-105) mg/dL Calcium 7.6 L (8.6-10.4) mg/dl Phosphorus 2.6 (2.5-4.5) mg/dL Magnesium 1.9 (1.6-2.3) mg/dL Total Bilirubin 0.6 (0.2-1.3) mg/dL AST 25 (14-36) U/L ALT 28 (9-52) U/L Alkaline Phosphatase 159 H (38-126) U/L Total Protein 5.0 L (6.3-8.3) g/dL Albumin 2.1 L (3.5-5.0) g/dL Globulin 2.9 (2.2-3.9) gm/dL Albumin/Globulin Ratio 0.7 L (1.0-2.1) Arterial Blood Potassium (3.6-5.2) mmol/L 09/02/16 09/02/16 09/02/16 Range/Units 17:00 09:40 06:16 WBC (4.8-10.8) K/uL RBC (3.80-5.20) Mil/uL Hgb (11.0-16.0) g/dL Hct (34.0-47.0) % MCV (81.0-99.0) fL MCH (27.0-31.0) pg MCHC (33.0-37.0) g/dL RDW (11.5-14.5) % Plt Count (130-400) K/uL MPV (7.2-11.7) fL Neut % (Auto) (50.0-75.0) % Lymph % (Auto) (20.0-40.0) % [place] % (Auto) (0.0-10.0) % Eos % (Auto) (0.0-4.0) % Baso % (Auto) (0.0-2.0) % Neut # (1.8-7.0) K/uL Lymph # (1.0-4.3) K/uL [place] # (0.0-0.8) K/uL Eos # (0.0-0.7) K/uL Baso # (0.0-0.2) K/uL Neutrophils % (Manual) 91 H (50-75) % Band Neutrophils % 4 H (0-2) % Lymphocytes % (Manual) 1 L (20-40) % Monocytes % (Manual) 4 (0-10) % Platelet Estimate Normal (NORMAL) Hypochromasia (manual) Slight Poikilocytosis (manual Slight Anisocytosis (manual) Slight Puncture Site Rra Rr pCO2 43 54 H (35-45) mm/Hg pO2 90 38 L* (80-100) mm/Hg HCO3 35.8 H 32.5 H (21-28) mmol/L ABG pH 7.55 H 7.44 (7.35-7.45) ABG Total CO2 38.9 H 38.4 H (22-28) mmol/L ABG O2 Saturation 99.4 H 80.0 L (95-98) % ABG Base Excess 13.9 H 10.5 H (-2.0-3.0) mmol/L ABG Hemoglobin 9.8 L (11.7-17.4) g/dL ABG Carboxyhemoglobin 1.7 H (0.5-1.5) % POC ABG HHb (Measured) 0.6 (0.0-5.0) % ABG Methemoglobin 0.9 (0.0-3.0) % Seng Test Pos Po ABG Potassium 4.1 (3.6-5.2) mmol/L A-a O2 Difference 569.0 215.0 mm/Hg Respiratory Index 6.3 5.7 Hgb O2 Saturation 96.8 (95.0-98.0) % Sodium 138.0 (132-148) mmol/l Chloride 104.0 (98-107) mmol/L Glucose 151 H (65-105) mg/dl Lactate 0.7 (0.7-2.1) mmol/L Mechanical Rate 14 FiO2 100.0 45.0 % Tidal Volume 450 PEEP 5 Inspiratory BiPAP 12 Expiratory BiPAP 6 Crit Value Called To Dr. brush Crit Value Called By Chadd gonzalez Crit Value Read Back Y Blood Gas Notified Time 943 Potassium (3.6-5.2) mmol/L Carbon Dioxide (22-30) mmol/L Anion Gap (10-20) BUN (7-17) mg/dL Creatinine (0.7-1.2) MG/DL Est GFR ( Amer) Est GFR (Non-Af Amer) Random Glucose (65-105) mg/dL Calcium (8.6-10.4) mg/dl Phosphorus (2.5-4.5) mg/dL Magnesium (1.6-2.3) mg/dL Total Bilirubin (0.2-1.3) mg/dL AST (14-36) U/L ALT (9-52) U/L Alkaline Phosphatase (38-126) U/L Total Protein (6.3-8.3) g/dL Albumin (3.5-5.0) g/dL Globulin (2.2-3.9) gm/dL Albumin/Globulin Ratio (1.0-2.1) Arterial Blood Potassium 4.1 (3.6-5.2) mmol/L Laboratory Results - last 24 hr 09/02/16 09/02/16 09/02/16 06:16 09:40 17:00 WBC RBC Hgb Hct MCV MCH MCHC RDW Plt Count MPV Neut % (Auto) Lymph % (Auto) [place] % (Auto) Eos % (Auto) Baso % (Auto) Neut # Lymph # [place] # Eos # Baso # Neutrophils % (Manual) 91 H Band Neutrophils % 4 H Lymphocytes % (Manual) 1 L Monocytes % (Manual) 4 Platelet Estimate Normal Hypochromasia (manual) Slight Poikilocytosis (manual Slight Anisocytosis (manual) Slight Puncture Site Rr Rra pCO2 54 H 43 pO2 38 L* 90 HCO3 32.5 H 35.8 H ABG pH 7.44 7.55 H ABG Total CO2 38.4 H 38.9 H ABG O2 Saturation 80.0 L 99.4 H ABG Base Excess 10.5 H 13.9 H ABG Hemoglobin 9.8 L ABG Carboxyhemoglobin 1.7 H POC ABG HHb (Measured) 0.6 ABG Methemoglobin 0.9 Seng Test Po Pos ABG Potassium 4.1 A-a O2 Difference 215.0 569.0 Respiratory Index 5.7 6.3 Hgb O2 Saturation 96.8 Sodium 138.0 Chloride 104.0 Glucose 151 H Lactate 0.7 Mechanical Rate 14 FiO2 45.0 100.0 Tidal Volume 450 PEEP 5 Inspiratory BiPAP 12 Expiratory BiPAP 6 Crit Value Called To Dr. brush Crit Value Called By Chadd gonzalez Crit Value Read Back Y Blood Gas Notified Time 943 Potassium Carbon Dioxide Anion Gap BUN Creatinine Est GFR ( Amer) Est GFR (Non-Af Amer) Random Glucose Calcium Phosphorus Magnesium Total Bilirubin AST ALT Alkaline Phosphatase Total Protein Albumin Globulin Albumin/Globulin Ratio Arterial Blood Potassium 4.1 09/03/16 09/03/16 09/03/16 04:35 06:03 06:03 WBC 15.4 H RBC 2.76 L Hgb 9.6 L Hct 29.5 L MCV 106.8 H MCH 34.9 H MCHC 32.7 L RDW 16.0 H Plt Count 258 MPV 10.2 Neut % (Auto) 90.4 H Lymph % (Auto) 5.2 L [place] % (Auto) 3.9 Eos % (Auto) 0.1 Baso % (Auto) 0.4 Neut # 13.9 H Lymph # 0.8 L [place] # 0.6 Eos # 0.0 Baso # 0.1 Neutrophils % (Manual) Band Neutrophils % Lymphocytes % (Manual) Monocytes % (Manual) Platelet Estimate Hypochromasia (manual) Poikilocytosis (manual Anisocytosis (manual) Puncture Site Rr pCO2 33 L pO2 195 H HCO3 31.0 H ABG pH 7.57 H ABG Total CO2 31.2 H ABG O2 Saturation 99.8 H ABG Base Excess 7.7 H ABG Hemoglobin 8.4 L ABG Carboxyhemoglobin 1.4 POC ABG HHb (Measured) 0.2 ABG Methemoglobin 1.2 Seng Test Pos ABG Potassium A-a O2 Difference 477.0 Respiratory Index 2.4 Hgb O2 Saturation 97.3 Sodium 135 Chloride 97 L Glucose Lactate Mechanical Rate 12 FiO2 100.0 Tidal Volume 400 PEEP 5 Inspiratory BiPAP Expiratory BiPAP Crit Value Called To Crit Value Called By Crit Value Read Back Blood Gas Notified Time Potassium 4.0 Carbon Dioxide 35 H Anion Gap 7 L BUN 34 H Creatinine 0.5 L Est GFR ( Amer) > 60 Est GFR (Non-Af Amer) > 60 Random Glucose 79 Calcium 7.6 L Phosphorus 2.6 Magnesium 1.9 Total Bilirubin 0.6 AST 25 ALT 28 Alkaline Phosphatase 159 H Total Protein 5.0 L Albumin 2.1 L Globulin 2.9 Albumin/Globulin Ratio 0.7 L Arterial Blood Potassium Review of Systems - Review of Systems Systems not reviewed;Unavailable: Intubated Assessment/Plan - Assessment and Plan (Free Text) Assessment: 76 F PMHx HTN, A. fib, COPD, anxiety, recurrent falls admitted for sepsis from UTI and bilateral hip fractures Plan: Neuro: -Responds to name- not on any sedation -no acute issues -Head CT 08/15: negative Pulm: -inubated on vent (12, 50, 400, 80%) -Chest pigtail catheter placed 08/19 for large R pleural effusion- removed 08/23 -s/p thoracentesis of pleural effusion 08/19 WBC 12 RBC 219 Neutrophils 25 Lymphocytes 63 Monocytes 12 Fluid comment: few macrophages and mesothelials Total protein < 3 LDH 43 Glucose 106 -sputum culture (08/14/16): Yeast species. -Duoneb 3ml inh q6 -Diflucan 200mg IV daily x 14 days Cardiovascular: -CHF exacerbation resolved as per cardio proBNP 88967 (08/10)--> 44093 (08/12)--> 7010 (08/26) -nonischemic cardiomyopathy -Echo 08/14: LA, LV, RA, RV appear normal; moderate to severe L systolic dysfunction; mitral, TV, Aortic valve normal; mild MR, TR with calculated pulmonary systolic pressure of 54mm consistent with mod pulmonary HTN; IVC is WNL; minimal anterior echo free space probably fat -s/p cardiorespiratory arrest 08/14/16 with successful resuscitation -Cardiac cath 08/13: nonischemic cardiomyopathy with EF 15-20%; 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; great collaterals from L to R system; no coronary intervention -Echo 08/09: EF 25-30%; LV systolic function severely imparied; global hypokinesia more pronounced in anterospetal area; Grade I abnl relaxation pattern on transmitral doppler flow; MR moderate to severe; mild pulm HTN -Digoxin 0.25mg po daily -Lisinopril 5mg po daily -Lopressor 25mg po bid -Lasix 40mg ivp every other day -Patient given albumin one time 08/26 Heme: -H&H stable Renal: -jones in place -Lasix 40mg Q48h ivp Endo: -no acute issues GI: -NGT feedings @ 35cc/hr tolerating with no residuals MSK: -b/l hip fracture -patient not stable for surgical intervention ID: -[id number] trending up 16.7 this AM -repeat procalcitonin 09/01 is 0.12 -procalcitonin 08/26 was 2.31 -Urine: +VRE Faecium -Tigecycline 50mg ivpb q12 -Tylenol for temp 650mg po q6 prn -sputum culture 08/14: Yeast species. -Diflucan 200mg IV daily x 14 days DVT proph: Heparin 5000u sc q12 GI proph: Protonix 40mg po daily Code status: DNR/DNI Case discussed with Dr Zak Waters PGY2 <Maurizio Brush - Last Filed: 09/03/16 16:26> CCU Objective - Vital Signs / Intake & Output Vital Signs (Last 4 hours): Vital Signs Pulse Resp BP Pulse Ox 09/03/16 16:01 90 20 125/50 L 95 09/03/16 16:00 102 H 20 93 L 09/03/16 15:01 80 13 105/49 L 99 09/03/16 15:00 82 14 96 09/03/16 14:41 115/47 L 09/03/16 14:01 95 H 22 115/47 L 100 09/03/16 14:00 88 16 100 09/03/16 13:01 86 10 L 110/57 L 100 09/03/16 13:00 86 16 100 Intake and Output (Last 8hrs): Intake & Output 09/03/16 09/03/16 09/03/16 06:59 14:59 22:59 Intake Total 1580 480 70 Output Total 320 170 100 Balance 1260 310 -30 Intake: Intake, IV Amount 1100 200 Right PICC 1100 200 Oral 200 Tube Feeding 280 280 70 Output: Urine 320 170 100 Urethral (Jones) 320 170 100 Other: # Bowel Movements 1 - Medications Active Medications: Active Medications Generic Name Dose Route Start Last Admin Trade Name Freq PRN Reason Stop Dose Admin Acetaminophen 650 mg 08/14/16 23:50 08/25/16 00:45 Tylenol 650mg/20.3ml Solution Ud PO 650 mg Q6H PRN Administration temp.100.4&above;mild pain 1-3 Albuterol/Ipratropium 3 ml 08/16/16 14:00 09/03/16 13:36 Duoneb 3 Mg/0.5 Mg (3 Ml) Ud INH 3 ml RQ6 [place] Administration Digoxin 0.25 mg 08/30/16 18:00 09/02/16 17:07 Lanoxin PO 0.25 mg DAILY@1800 [place] Administration Furosemide 40 mg 08/28/16 15:38 09/03/16 14:41 Lasix IVP 40 mg Q48H [place] Administration Heparin Sodium (Porcine) 5,000 units 09/03/16 10:00 09/03/16 09:41 Heparin SC 5,000 units Q12 [place] Administration Tigecycline 50 mg/ Sodium 100 mls @ 100 mls/hr 09/01/16 12:00 09/03/16 11:34 Chloride IVPB 100 mls/hr Q12H [place] Administration Fluconazole 100 mls @ 100 mls/hr 09/03/16 11:00 09/03/16 11:50 Diflucan Iv 200 Mg/100 Ml Ns IVPB 100 mls/hr DAILY [place] Administration Lisinopril 5 mg 08/17/16 10:00 09/03/16 11:51 Zestril PO Not Given DAILY [place] Metoprolol Tartrate 25 mg 08/12/16 18:00 09/03/16 09:42 Lopressor PO Not Given BID [place] Pantoprazole Sodium 40 mg 08/27/16 06:00 09/03/16 05:15 Protonix Susp PO 40 mg 0600 [place] Administration - Patient Studies Lab Studies: Lab Studies 09/03/16 09/03/16 09/03/16 Range/Units 06:03 06:03 04:35 WBC 15.4 H (4.8-10.8) K/uL RBC 2.76 L (3.80-5.20) Mil/uL Hgb 9.6 L (11.0-16.0) g/dL Hct 29.5 L (34.0-47.0) % MCV 106.8 H (81.0-99.0) fL MCH 34.9 H (27.0-31.0) pg MCHC 32.7 L (33.0-37.0) g/dL RDW 16.0 H (11.5-14.5) % Plt Count 258 (130-400) K/uL MPV 10.2 (7.2-11.7) fL Neut % (Auto) 90.4 H (50.0-75.0) % Lymph % (Auto) 5.2 L (20.0-40.0) % [place] % (Auto) 3.9 (0.0-10.0) % Eos % (Auto) 0.1 (0.0-4.0) % Baso % (Auto) 0.4 (0.0-2.0) % Neut # 13.9 H (1.8-7.0) K/uL Lymph # 0.8 L (1.0-4.3) K/uL [place] # 0.6 (0.0-0.8) K/uL Eos # 0.0 (0.0-0.7) K/uL Baso # 0.1 (0.0-0.2) K/uL Neutrophils % (Manual) 91 H (50-75) % Band Neutrophils % 1 (0-2) % Lymphocytes % (Manual) 5 L (20-40) % Monocytes % (Manual) 3 (0-10) % Platelet Estimate Normal (NORMAL) Hypochromasia (manual) Slight Poikilocytosis (manual Slight Anisocytosis (manual) Slight Macrocytosis (manual) Slight Puncture Site Rr pCO2 33 L (35-45) mm/Hg pO2 195 H (80-100) mm/Hg HCO3 31.0 H (21-28) mmol/L ABG pH 7.57 H (7.35-7.45) ABG Total CO2 31.2 H (22-28) mmol/L ABG O2 Saturation 99.8 H (95-98) % ABG Base Excess 7.7 H (-2.0-3.0) mmol/L ABG Hemoglobin 8.4 L (11.7-17.4) g/dL ABG Carboxyhemoglobin 1.4 (0.5-1.5) % POC ABG HHb (Measured) 0.2 (0.0-5.0) % ABG Methemoglobin 1.2 (0.0-3.0) % Seng Test Pos A-a O2 Difference 477.0 mm/Hg Respiratory Index 2.4 Hgb O2 Saturation 97.3 (95.0-98.0) % Mechanical Rate 12 FiO2 100.0 % Tidal Volume 400 PEEP 5 Sodium 135 (132-148) mmol/L Potassium 4.0 (3.6-5.2) mmol/L Chloride 97 L (98-107) mmol/L Carbon Dioxide 35 H (22-30) mmol/L Anion Gap 7 L (10-20) BUN 34 H (7-17) mg/dL Creatinine 0.5 L (0.7-1.2) MG/DL Est GFR ( Amer) > 60 Est GFR (Non-Af Amer) > 60 Random Glucose 79 (65-105) mg/dL Calcium 7.6 L (8.6-10.4) mg/dl Phosphorus 2.6 (2.5-4.5) mg/dL Magnesium 1.9 (1.6-2.3) mg/dL Total Bilirubin 0.6 (0.2-1.3) mg/dL AST 25 (14-36) U/L ALT 28 (9-52) U/L Alkaline Phosphatase 159 H (38-126) U/L Total Protein 5.0 L (6.3-8.3) g/dL Albumin 2.1 L (3.5-5.0) g/dL Globulin 2.9 (2.2-3.9) gm/dL Albumin/Globulin Ratio 0.7 L (1.0-2.1) / Range/Units 17:00 WBC (4.8-10.8) K/uL RBC (3.80-5.20) Mil/uL Hgb (11.0-16.0) g/dL Hct (34.0-47.0) % MCV (81.0-99.0) fL MCH (27.0-31.0) pg MCHC (33.0-37.0) g/dL RDW (11.5-14.5) % Plt Count (130-400) K/uL MPV (7.2-11.7) fL Neut % (Auto) (50.0-75.0) % Lymph % (Auto) (20.0-40.0) % [place] % (Auto) (0.0-10.0) % Eos % (Auto) (0.0-4.0) % Baso % (Auto) (0.0-2.0) % Neut # (1.8-7.0) K/uL Lymph # (1.0-4.3) K/uL [place] # (0.0-0.8) K/uL Eos # (0.0-0.7) K/uL Baso # (0.0-0.2) K/uL Neutrophils % (Manual) (50-75) % Band Neutrophils % (0-2) % Lymphocytes % (Manual) (20-40) % Monocytes % (Manual) (0-10) % Platelet Estimate (NORMAL) Hypochromasia (manual) Poikilocytosis (manual Anisocytosis (manual) Macrocytosis (manual) Puncture Site Rra pCO2 43 (35-45) mm/Hg pO2 90 (80-100) mm/Hg HCO3 35.8 H (21-28) mmol/L ABG pH 7.55 H (7.35-7.45) ABG Total CO2 38.9 H (22-28) mmol/L ABG O2 Saturation 99.4 H (95-98) % ABG Base Excess 13.9 H (-2.0-3.0) mmol/L ABG Hemoglobin 9.8 L (11.7-17.4) g/dL ABG Carboxyhemoglobin 1.7 H (0.5-1.5) % POC ABG HHb (Measured) 0.6 (0.0-5.0) % ABG Methemoglobin 0.9 (0.0-3.0) % Seng Test Pos A-a O2 Difference 569.0 mm/Hg Respiratory Index 6.3 Hgb O2 Saturation 96.8 (95.0-98.0) % Mechanical Rate 14 FiO2 100.0 % Tidal Volume 450 PEEP 5 Sodium (132-148) mmol/L Potassium (3.6-5.2) mmol/L Chloride (98-107) mmol/L Carbon Dioxide (22-30) mmol/L Anion Gap (10-20) BUN (7-17) mg/dL Creatinine (0.7-1.2) MG/DL Est GFR ( Amer) Est GFR (Non-Af Amer) Random Glucose (65-105) mg/dL Calcium (8.6-10.4) mg/dl Phosphorus (2.5-4.5) mg/dL Magnesium (1.6-2.3) mg/dL Total Bilirubin (0.2-1.3) mg/dL AST (14-36) U/L ALT (9-52) U/L Alkaline Phosphatase (38-126) U/L Total Protein (6.3-8.3) g/dL Albumin (3.5-5.0) g/dL Globulin (2.2-3.9) gm/dL Albumin/Globulin Ratio (1.0-2.1) Laboratory Results - last 24 hr 09/02/16 09/03/16 09/03/16 17:00 04:35 06:03 WBC 15.4 H RBC 2.76 L Hgb 9.6 L Hct 29.5 L MCV 106.8 H MCH 34.9 H MCHC 32.7 L RDW 16.0 H Plt Count 258 MPV 10.2 Neut % (Auto) 90.4 H Lymph % (Auto) 5.2 L [place] % (Auto) 3.9 Eos % (Auto) 0.1 Baso % (Auto) 0.4 Neut # 13.9 H Lymph # 0.8 L [place] # 0.6 Eos # 0.0 Baso # 0.1 Neutrophils % (Manual) 91 H Band Neutrophils % 1 Lymphocytes % (Manual) 5 L Monocytes % (Manual) 3 Platelet Estimate Normal Hypochromasia (manual) Slight Poikilocytosis (manual Slight Anisocytosis (manual) Slight Macrocytosis (manual) Slight Puncture Site Rra Rr pCO2 43 33 L pO2 90 195 H HCO3 35.8 H 31.0 H ABG pH 7.55 H 7.57 H ABG Total CO2 38.9 H 31.2 H ABG O2 Saturation 99.4 H 99.8 H ABG Base Excess 13.9 H 7.7 H ABG Hemoglobin 9.8 L 8.4 L ABG Carboxyhemoglobin 1.7 H 1.4 POC ABG HHb (Measured) 0.6 0.2 ABG Methemoglobin 0.9 1.2 Seng Test Pos Pos A-a O2 Difference 569.0 477.0 Respiratory Index 6.3 2.4 Hgb O2 Saturation 96.8 97.3 Mechanical Rate 14 12 FiO2 100.0 100.0 Tidal Volume 450 400 PEEP 5 5 Sodium Potassium Chloride Carbon Dioxide Anion Gap BUN Creatinine Est GFR ( Amer) Est GFR (Non-Af Amer) Random Glucose Calcium Phosphorus Magnesium Total Bilirubin AST ALT Alkaline Phosphatase Total Protein Albumin Globulin Albumin/Globulin Ratio 09/03/16 06:03 WBC RBC Hgb Hct MCV MCH MCHC RDW Plt Count MPV Neut % (Auto) Lymph % (Auto) [place] % (Auto) Eos % (Auto) Baso % (Auto) Neut # Lymph # [place] # Eos # Baso # Neutrophils % (Manual) Band Neutrophils % Lymphocytes % (Manual) Monocytes % (Manual) Platelet Estimate Hypochromasia (manual) Poikilocytosis (manual Anisocytosis (manual) Macrocytosis (manual) Puncture Site pCO2 pO2 HCO3 ABG pH ABG Total CO2 ABG O2 Saturation ABG Base Excess ABG Hemoglobin ABG Carboxyhemoglobin POC ABG HHb (Measured) ABG Methemoglobin Seng Test A-a O2 Difference Respiratory Index Hgb O2 Saturation Mechanical Rate FiO2 Tidal Volume PEEP Sodium 135 Potassium 4.0 Chloride 97 L Carbon Dioxide 35 H Anion Gap 7 L BUN 34 H Creatinine 0.5 L Est GFR ( Amer) > 60 Est GFR (Non-Af Amer) > 60 Random Glucose 79 Calcium 7.6 L Phosphorus 2.6 Magnesium 1.9 Total Bilirubin 0.6 AST 25 ALT 28 Alkaline Phosphatase 159 H Total Protein 5.0 L Albumin 2.1 L Globulin 2.9 Albumin/Globulin Ratio 0.7 L Assessment/Plan (1) Acute respiratory failure Current Visit: Yes Status: Acute Comment: Status post extubation yesterday and placed on BiPAP Continue antibiotics Start feeding after NG tube placement Followup ABG and chest x-ray Patient has risk for surgery (2) CHF exacerbation Current Visit: Yes Status: Resolved (3) Closed fracture of greater trochanter of left femur Current Visit: Yes Status: Acute (4) Garden grade IV closed subcapital fracture of proximal end of right femur Current Visit: Yes Status: Acute Attending/Attestation - Attestation I have personally seen and examined this patient.: Yes I have fully participated in the care of the patient.: Yes I have reviewed all pertinent clinical information: Yes Notes (Text): 09/03/16 16:25 patient seen and examined in the intensive care unit. Case discussed with house staff in the morning rounds. No change in patient condition On ventilatory suppor requiring high FiO2 Continue antibiotics DNR/DNI Prognosis poor
[2016-09-03 08:27] LABS: ANISOCYTOSIS SLIGHT; BANDS 1 % (0-2); LYMPHOCYTE 5 % (20-40); MONOCYTE 3 % (0-10); NEUTROPHIL 91 % (50-75); PLATELET ESTIMATE NORMAL (NORMAL); POIKILOCYTOSIS SLIGHT; TOTAL CELLS COUNTED 100
[2016-09-03 08:28] LABS: HYPOCHROMIC SLIGHT
--- NOTE | 2016-09-03 10:20 | CP.PCM.PN ---
Subjective - Date & Time of Evaluation Date of Evaluation: 09/03/16 Time of Evaluation: 10:16 - Subjective Subjective: Patient intubated. Objective - Vital Signs/Intake and Output Vital Signs (last 24 hours): Temp Pulse Resp BP Pulse Ox 97.6 F 81 15 100/53 L 100 09/03/16 08:00 09/03/16 09:01 09/03/16 09:01 09/03/16 09:42 09/03/16 08:01 Intake and Output: 09/03/16 09/03/16 06:59 18:59 Intake Total 1880 140 Output Total 480 60 Balance 1400 80 - Medications Medications: Current Medications Acetaminophen (Tylenol 650mg/20.3ml Solution Ud) 650 mg PO Q6H PRN PRN Reason: temp.100.4&above;mild pain 1-3 Last Admin: 08/25/16 00:45 Dose: 650 mg Albuterol/Ipratropium (Duoneb 3 Mg/0.5 Mg (3 Ml) Ud) 3 ml INH RQ6 [facility] Last Admin: 09/03/16 07:44 Dose: 3 ml Digoxin (Lanoxin) 0.25 mg PO DAILY@1800 [facility] Last Admin: 09/02/16 17:07 Dose: 0.25 mg Furosemide (Lasix) 40 mg IVP Q48H [facility] Last Admin: 09/01/16 16:00 Dose: 40 mg Heparin Sodium (Porcine) (Heparin) 5,000 units SC Q12 [facility] Last Admin: 09/03/16 09:41 Dose: 5,000 units Tigecycline 50 mg/ Sodium (Chloride) 100 mls @ 100 mls/hr IVPB Q12H [facility] Last Admin: 09/03/16 00:30 Dose: 100 mls/hr Fluconazole (Diflucan Iv 200 Mg/100 Ml Ns) 100 mls @ 100 mls/hr IVPB DAILY [facility] Lisinopril (Zestril) 5 mg PO DAILY [facility] Last Admin: 09/02/16 09:42 Dose: 5 mg Metoprolol Tartrate (Lopressor) 25 mg PO BID [facility] Last Admin: 09/03/16 09:42 Dose: Not Given Pantoprazole Sodium (Protonix Susp) 40 mg PO 0600 [facility] Last Admin: 09/03/16 05:15 Dose: 40 mg - Labs Labs: 09/03/16 06:03 09/03/16 06:03 PT 10.6 SECONDS (9.7-12.2) 08/21/16 06:11 INR 1.0 08/21/16 06:11 APTT 29 SECONDS (21-34) 08/21/16 06:11 - Extremities Exam Additional comments: +DP venodynes intact BLE Assessment and Plan (1) Garden grade IV closed subcapital fracture of proximal end of right femur Assessment & Plan: d/w ICU team patient not surgical candidate at this time DNR noted d/w Dr. Elena, agrees with above Status: Acute (2) Degenerative joint disease of right hip Status: Chronic (3) Closed fracture of greater trochanter of left femur Status: Acute
--- NOTE | 2016-09-03 10:20 | RAD ---
PROCEDURE: CHEST RADIOGRAPH, 1 VIEW HISTORY: vent COMPARISON: 09/02/2016 FINDINGS: The endotracheal tube terminates 4.8 cm proximal to the priya. The nasogastric tube terminates in the stomach. The right PICC line terminates in the SVC. LUNGS: The lungs are hyperinflated and there is peribronchial thickening with chronic changes in both lungs. There is persistent consolidation in the right lower lobe. PLEURA: Stable moderate left pleural effusion. No pneumothorax or significant right pleural fluid seen. CARDIOVASCULAR: The cardiomediastinal silhouette is stable. OSSEOUS STRUCTURES: No significant abnormalities. VISUALIZED UPPER ABDOMEN: Normal. OTHER FINDINGS: None. IMPRESSION: No change in right lower lobe pneumonia. COPD Moderate left pleural effusion.
[2016-09-03] MEDS: Fluconazole IV 200mg/100 ml NS 100 ML IVPB SCH (11:50)
[2016-09-03] MEDS: Digoxin 250 mcg (0.25 mg) Tab PO SCH (17:16)
--- NOTE | 2016-09-03 18:48 | CP.PCM.PN ---
Subjective - Date & Time of Evaluation Date of Evaluation: 09/03/16 Time of Evaluation: 08:00 - Subjective Subjective: tygacil reordered rx in progress cont rx Objective - Vital Signs/Intake and Output Vital Signs (last 24 hours): Temp Pulse Resp BP Pulse Ox 97.9 F 112 H 16 101/62 98 09/03/16 16:00 09/03/16 18:02 09/03/16 18:02 09/03/16 18:02 09/03/16 18:02 Intake and Output: 09/03/16 09/03/16 06:59 18:59 Intake Total 1880 620 Output Total 480 1370 Balance 1400 -750 - Medications Medications: Current Medications Acetaminophen (Tylenol 650mg/20.3ml Solution Ud) 650 mg PO Q6H PRN PRN Reason: temp.100.4&above;mild pain 1-3 Last Admin: 08/25/16 00:45 Dose: 650 mg Albuterol/Ipratropium (Duoneb 3 Mg/0.5 Mg (3 Ml) Ud) 3 ml INH RQ6 [facility] Last Admin: 09/03/16 13:36 Dose: 3 ml Digoxin (Lanoxin) 0.25 mg PO DAILY@1800 [facility] Last Admin: 09/03/16 17:16 Dose: 0.25 mg Furosemide (Lasix) 40 mg IVP Q48H [facility] Last Admin: 09/03/16 14:41 Dose: 40 mg Heparin Sodium (Porcine) (Heparin) 5,000 units SC Q12 [facility] Last Admin: 09/03/16 09:41 Dose: 5,000 units Tigecycline 50 mg/ Sodium (Chloride) 100 mls @ 100 mls/hr IVPB Q12H [facility] Last Admin: 09/03/16 11:34 Dose: 100 mls/hr Fluconazole (Diflucan Iv 200 Mg/100 Ml Ns) 100 mls @ 100 mls/hr IVPB DAILY [facility] Last Admin: 09/03/16 11:50 Dose: 100 mls/hr Lisinopril (Zestril) 5 mg PO DAILY [facility] Last Admin: 09/03/16 11:51 Dose: Not Given Metoprolol Tartrate (Lopressor) 25 mg PO BID [facility] Last Admin: 09/03/16 09:42 Dose: Not Given Pantoprazole Sodium (Protonix Susp) 40 mg PO 0600 [facility] Last Admin: 09/03/16 05:15 Dose: 40 mg - Labs Labs: 09/03/16 06:03 09/03/16 06:03 PT 10.6 SECONDS (9.7-12.2) 08/21/16 06:11 INR 1.0 08/21/16 06:11 APTT 29 SECONDS (21-34) 08/21/16 06:11 - Constitutional Appears: Non-toxic, Chronically Ill - Eye Exam Eye Exam: PERRL. absent: Scleral icterus - ENT Exam ENT Exam: Normal External Ear Exam - Neck Exam Neck Exam: absent: Lymphadenopathy - Respiratory Exam Respiratory Exam: Decreased Breath Sounds, Clear to Ausculation Bilateral - Cardiovascular Exam Cardiovascular Exam: REGULAR RHYTHM - GI/Abdominal Exam GI & Abdominal Exam: Distended, Soft Assessment and Plan (1) Acute respiratory failure Status: Acute (2) Closed fracture of greater trochanter of left femur Status: Acute (3) Contusion of head Status: Acute (4) Fall Status: Acute (5) Garden grade IV closed subcapital fracture of proximal end of right femur Status: Acute (6) Pelvic fracture Status: Acute (7) Pleural effusion due to CHF (congestive heart failure) Status: Acute (8) Right middle lobe pneumonia Status: Acute (9) CHF (NYHA class III, ACC/AHA stage C) Status: Chronic (10) Degenerative joint disease of right hip Status: Chronic (11) Multifocal atrial tachycardia Status: Chronic (12) Arrhythmia Status: Resolved (13) CHF exacerbation Status: Resolved (14) Dehydration Status: Resolved (15) Pleural effusion, right Status: Resolved (16) Sepsis Status: Resolved
--- NOTE | 2016-09-03 20:43 | CP.PCM.PN ---
Subjective - Date & Time of Evaluation Date of Evaluation: 09/03/16 Time of Evaluation: 20:41 - Subjective Subjective: Patient remains on respirator, lethargic with copious secretions from ET tube. Afebrile. On IV Tigacil, Primaxin and Diflucan, and NGT feeding. Objective - Vital Signs/Intake and Output Vital Signs (last 24 hours): Temp Pulse Resp BP Pulse Ox 97.9 F 103 H 12 101/54 L 98 09/03/16 16:00 09/03/16 19:00 09/03/16 19:00 09/03/16 19:02 09/03/16 18:02 Intake and Output: 09/03/16 09/04/16 18:59 06:59 Intake Total 620 35 Output Total 1470 500 Balance -850 -465 - Medications Medications: Current Medications Acetaminophen (Tylenol 650mg/20.3ml Solution Ud) 650 mg PO Q6H PRN PRN Reason: temp.100.4&above;mild pain 1-3 Last Admin: 08/25/16 00:45 Dose: 650 mg Albuterol/Ipratropium (Duoneb 3 Mg/0.5 Mg (3 Ml) Ud) 3 ml INH RQ6 [facility] Last Admin: 09/03/16 19:59 Dose: 3 ml Digoxin (Lanoxin) 0.25 mg PO DAILY@1800 [facility] Last Admin: 09/03/16 17:16 Dose: 0.25 mg Furosemide (Lasix) 40 mg IVP Q48H [facility] Last Admin: 09/03/16 14:41 Dose: 40 mg Heparin Sodium (Porcine) (Heparin) 5,000 units SC Q12 [facility] Last Admin: 09/03/16 09:41 Dose: 5,000 units Tigecycline 50 mg/ Sodium (Chloride) 100 mls @ 100 mls/hr IVPB Q12H [facility] Last Admin: 09/03/16 11:34 Dose: 100 mls/hr Fluconazole (Diflucan Iv 200 Mg/100 Ml Ns) 100 mls @ 100 mls/hr IVPB DAILY [facility] Last Admin: 09/03/16 11:50 Dose: 100 mls/hr Lisinopril (Zestril) 5 mg PO DAILY [facility] Last Admin: 09/03/16 11:51 Dose: Not Given Metoprolol Tartrate (Lopressor) 25 mg PO BID [facility] Last Admin: 09/03/16 19:02 Dose: Not Given Pantoprazole Sodium (Protonix Susp) 40 mg PO 0600 [facility] Last Admin: 09/03/16 05:15 Dose: 40 mg - Labs Labs: 09/03/16 06:03 09/03/16 06:03 PT 10.6 SECONDS (9.7-12.2) 08/21/16 06:11 INR 1.0 08/21/16 06:11 APTT 29 SECONDS (21-34) 08/21/16 06:11 - Constitutional Appears: Chronically Ill - Eye Exam Eye Exam: Normal appearance Additional comments: Left periorbital hematoma. - ENT Exam ENT Exam: Normal Exam - Neck Exam Neck Exam: Normal Inspection - Respiratory Exam Additional comments: Rhonchi heard in both lung kern[place]. - Cardiovascular Exam Cardiovascular Exam: REGULAR RHYTHM - GI/Abdominal Exam GI & Abdominal Exam: Normal Bowel Sounds - Rectal Exam Rectal Exam: Deferred - Extremities Exam Additional comments: Tender both hips. Right leg external rotation. Trace edema of the lower extremities. - Back Exam Back Exam: NORMAL INSPECTION - Neurological Exam Additional comments: Lethargic. - Psychiatric Exam Additional comments: Lethargic. - Skin Skin Exam: Abrasion Assessment and Plan (1) Closed fracture of greater trochanter of left femur Assessment & Plan: Not medically for surgery yet. Status: Acute (2) Dehydration Status: Resolved (3) Sepsis Status: Resolved (4) Fall Status: Acute (5) Arrhythmia Status: Resolved (6) Contusion of head Status: Acute (7) Garden grade IV closed subcapital fracture of proximal end of right femur Status: Acute (8) CHF exacerbation Status: Resolved (9) Acute respiratory failure Assessment & Plan: To continue respiratory care. Status: Acute (10) Pleural effusion, right Status: Resolved (11) Right middle lobe pneumonia Assessment & Plan: To continue IV antibiotics as per Dr. Stanley. Status: Acute (12) VRE (vancomycin resistant enterococcus) culture positive Status: Acute
[2016-09-04] MEDS: Albuterol-Ipratrop 3 mg / 0.5 (3 ml) UD INH SCH ×4 (00:59→19:59)
[2016-09-04] MEDS: Pantoprazole 40 mg Susp UD PO SCH (05:20)
[2016-09-04 06:01] LABS: ARTERIAL BLOOD GAS HCO3 21.1 mmol/L (21-28); ARTERIAL BLOOD GAS HEMOGLOBIN 5.4 g/dL (11.7-17.4); ARTERIAL BLOOD GAS O2 SAT 99.7 % (95-98); ARTERIAL BLOOD GAS PCO2 23 mm/Hg (35-45); ARTERIAL BLOOD GAS PO2 195 mm/Hg (80-100); ARTERIAL BLOOD GAS TCO2 18.6 mmol/L (22-28)
[2016-09-04 06:52] LABS: BASO # 0.1 K/uL (0.0-0.2); BASO % 0.7 % (0.0-2.0); EOS % 0.2 % (0.0-4.0); HEMOGLOBIN 9.1 g/dL (11.0-16.0); LYMPH # 0.5 K/uL (1.0-4.3); LYMPH % 3.9 % (20.0-40.0); MEAN CORPUSCULAR HEMOGLOBIN 35.1 pg (27.0-31.0); MEAN CORPUSCULAR HGB CONC 32.8 g/dL (33.0-37.0); MEAN PLATELET VOLUME 10.4 fL (7.2-11.7); MONO # 0.6 K/uL (0.0-0.8); MONO % 4.6 % (0.0-10.0); NEUT # 12.2 K/uL (1.8-7.0); NEUT % 90.6 % (50.0-75.0); NRBC % 0.1 % (0.0-2.0); PLATELET COUNT 269 K/uL (130-400); RBC 2.59 Mil/uL (3.80-5.20); WHITE BLOOD COUNT 13.5 K/uL (4.8-10.8)
[2016-09-04 07:13] LABS: ALB/GLOB RATIO 0.7 (1.0-2.1); AST/SGOT 21 U/L (14-36)
[2016-09-04 07:14] LABS: ALT/SGPT 23 U/L (9-52); BLOOD UREA NITROGEN 36 mg/dL (7-17); CALCIUM 7.3 mg/dl (8.6-10.4); MAGNESIUM 1.9 mg/dL (1.6-2.3)
[2016-09-04 07:16] LABS: GFR AFRICAN-AMERICAN > 60; GFR NON-AFRICAN AMERICAN > 60
--- NOTE | 2016-09-04 07:21 | CP.CCUPN ---
<Sierra Waters - Last Filed: 09/04/16 16:25> CCU Subjective - Physician Review Subjective (Free Text): 09/04/16 16:25 Patient seen and examined at bedside. Intubated yesterday on vent (12, 360, 50, 60%) not on any sedation Patient afebrile overnight. Awake and follows commands. Patient's BP has been in 80s systolic- when she was bolused 500cc BP improved and patient had good UO. Current BP 86/46 and HR is 68bpm Feeds through NGT @ 35cc/hr- no residuals Complete ROS unobtainable Bioethics committee to be consulted to discuss goals of care CCU Objective - Vital Signs / Intake & Output Vital Signs (Last 4 hours): Vital Signs Temp Pulse Resp BP Pulse Ox 09/04/16 07:04 114 H 18 109/44 L 100 09/04/16 06:00 83 12 102/53 L 100 09/04/16 05:01 108/45 L 09/04/16 05:00 93 H 17 96 09/04/16 04:02 124/40 L 09/04/16 04:00 98.3 F 104 H 20 100 Intake and Output (Last 8hrs): Intake & Output 09/03/16 09/04/16 09/04/16 22:59 06:59 14:59 Intake Total 380 480 35 Output Total 2050 450 Balance -1670 30 35 Intake: Intake, IV Amount 100 Right PICC 100 Oral 100 100 Tube Feeding 280 280 35 Output: Urine 0 450 Urethral (Jones) 0 450 - Physical Exam Head: Positive for: Normocephalic, Ecchymosis, Other (Contusions over left side of face healing). Negative for: Atraumatic Pupils: Positive for: PERRL Extroacular Muscles: Positive for: EOMI Conjunctiva: Positive for: Normal. Negative for: Injected, Icteric Mouth: Positive for: Dry, Other (ET tube in place) Nose (External): Positive for: Other (NGT in place) Neck: Negative for: JVD, Bruit Respiratory/Chest: Positive for: Good Air Exchange, Decreased Breath Sounds ( bibasilar R > L), Other (vent sounds heard throughout). Negative for: Clear to Auscultation, Respiratory Distress, Accessory Muscle Use, Wheezes, Retracting, Rhonchi Cardiovascular: Positive for: Regular Rate and Rhythm, Normal S1, S2, Peripheal Pulses Present. Negative for: Murmurs, Irregular Rhythm Abdomen: Positive for: Normal Bowel Sounds. Negative for: Tenderness, Distention, Peritoneal Signs, Rebound, Guarding Upper Extremity: Positive for: Normal Inspection, NORMAL PULSES. Negative for: Edema Lower Extremity: Positive for: NORMAL PULSES, Deformity (right leg shortened and externally rotated ), Other (grimaces when b/l hips palpated; offloading boots and SCDs in place and secure). Negative for: Normal Inspection, Edema, Normal ROM Neurological: Positive for: Other (alert and responsive). Negative for: Speech Normal Skin: Positive for: Warm, Dry, Normal Color, Other (b/l ecchymosis on face noted ). Negative for: Rashes Psychiatric: Positive for: Alert (responds to name ) - Medications Active Medications: Active Medications Generic Name Dose Route Start Last Admin Trade Name Freq PRN Reason Stop Dose Admin Acetaminophen 650 mg 08/14/16 23:50 08/25/16 00:45 Tylenol 650mg/20.3ml Solution Ud PO 650 mg Q6H PRN Administration temp.100.4&above;mild pain 1-3 Albuterol/Ipratropium 3 ml 08/16/16 14:00 09/04/16 00:59 Duoneb 3 Mg/0.5 Mg (3 Ml) Ud INH 3 ml RQ6 [place] Administration Digoxin 0.25 mg 08/30/16 18:00 09/03/16 17:16 Lanoxin PO 0.25 mg DAILY@1800 [facility] Administration Furosemide 40 mg 08/28/16 15:38 09/03/16 14:41 Lasix IVP 40 mg Q48H [place] Administration Heparin Sodium (Porcine) 5,000 units 09/03/16 10:00 09/03/16 21:10 Heparin SC 5,000 units Q12 [facility] Administration Tigecycline 50 mg/ Sodium 100 mls @ 100 mls/hr 09/01/16 12:00 09/04/16 01:00 Chloride IVPB 100 mls/hr Q12H [place] Administration Fluconazole 100 mls @ 100 mls/hr 09/03/16 11:00 09/03/16 11:50 Diflucan Iv 200 Mg/100 Ml Ns IVPB 100 mls/hr DAILY [facility] Administration Lisinopril 5 mg 08/17/16 10:00 09/03/16 11:51 Zestril PO Not Given DAILY [facility] Metoprolol Tartrate 25 mg 08/12/16 18:00 09/03/16 19:02 Lopressor PO Not Given BID [place] Pantoprazole Sodium 40 mg 08/27/16 06:00 09/04/16 05:20 Protonix Susp PO 40 mg 0600 [place] Administration - Patient Studies Lab Studies: Lab Studies 09/04/16 09/04/16 09/03/16 Range/Units 06:31 03:00 06:03 WBC 13.5 H (4.8-10.8) K/uL RBC 2.59 L (3.80-5.20) Mil/uL Hgb 9.1 L (11.0-16.0) g/dL Hct 27.7 L (34.0-47.0) % MCV 107.0 H (81.0-99.0) fL MCH 35.1 H (27.0-31.0) pg MCHC 32.8 L (33.0-37.0) g/dL RDW 16.0 H (11.5-14.5) % Plt Count 269 (130-400) K/uL MPV 10.4 (7.2-11.7) fL Neut % (Auto) 90.6 H (50.0-75.0) % Lymph % (Auto) 3.9 L (20.0-40.0) % Travis % (Auto) 4.6 (0.0-10.0) % Eos % (Auto) 0.2 (0.0-4.0) % Baso % (Auto) 0.7 (0.0-2.0) % Neut # 12.2 H (1.8-7.0) K/uL Lymph # 0.5 L (1.0-4.3) K/uL Travis # 0.6 (0.0-0.8) K/uL Eos # 0.0 (0.0-0.7) K/uL Baso # 0.1 (0.0-0.2) K/uL Neutrophils % (Manual) 91 H (50-75) % Band Neutrophils % 1 (0-2) % Lymphocytes % (Manual) 5 L (20-40) % Monocytes % (Manual) 3 (0-10) % Platelet Estimate Normal (NORMAL) Hypochromasia (manual) Slight Poikilocytosis (manual Slight Anisocytosis (manual) Slight Macrocytosis (manual) Slight Puncture Site R brach pCO2 23 L (35-45) mm/Hg pO2 195 H (80-100) mm/Hg HCO3 21.1 (21-28) mmol/L ABG pH 7.50 H (7.35-7.45) ABG Total CO2 18.6 L (22-28) mmol/L ABG O2 Saturation 99.7 H (95-98) % ABG Base Excess -5.0 L (-2.0-3.0) mmol/L ABG Hemoglobin 5.4 L (11.7-17.4) g/dL ABG Carboxyhemoglobin 1.3 (0.5-1.5) % POC ABG HHb (Measured) 0.3 (0.0-5.0) % ABG Methemoglobin 1.2 (0.0-3.0) % Seng Test Na A-a O2 Difference 347.0 mm/Hg Respiratory Index 1.8 Hgb O2 Saturation 97.2 (95.0-98.0) % Mechanical Rate 12 FiO2 80.0 % Tidal Volume 400 PEEP 5 Crit Value Called To Holly gonzalez field return repairer Crit Value Called By Kimmie olson rt Crit Value Read Back Y Blood Gas Notified Time 603 Laboratory Results - last 24 hr 09/03/16 09/04/16 09/04/16 06:03 03:00 06:31 WBC 13.5 H RBC 2.59 L Hgb 9.1 L Hct 27.7 L MCV 107.0 H MCH 35.1 H MCHC 32.8 L RDW 16.0 H Plt Count 269 MPV 10.4 Neut % (Auto) 90.6 H Lymph % (Auto) 3.9 L Travis % (Auto) 4.6 Eos % (Auto) 0.2 Baso % (Auto) 0.7 Neut # 12.2 H Lymph # 0.5 L Travis # 0.6 Eos # 0.0 Baso # 0.1 Neutrophils % (Manual) 91 H Band Neutrophils % 1 Lymphocytes % (Manual) 5 L Monocytes % (Manual) 3 Platelet Estimate Normal Hypochromasia (manual) Slight Poikilocytosis (manual Slight Anisocytosis (manual) Slight Macrocytosis (manual) Slight Puncture Site R brach pCO2 23 L pO2 195 H HCO3 21.1 ABG pH 7.50 H ABG Total CO2 18.6 L ABG O2 Saturation 99.7 H ABG Base Excess -5.0 L ABG Hemoglobin 5.4 L ABG Carboxyhemoglobin 1.3 POC ABG HHb (Measured) 0.3 ABG Methemoglobin 1.2 Seng Test Na A-a O2 Difference 347.0 Respiratory Index 1.8 Hgb O2 Saturation 97.2 Mechanical Rate 12 FiO2 80.0 Tidal Volume 400 PEEP 5 Crit Value Called To Holly gonzalez field return repairer Crit Value Called By Kimmie olson rt Crit Value Read Back Y Blood Gas Notified Time 603 Review of Systems - Review of Systems Systems not reviewed;Unavailable: Acuity of Condition Assessment/Plan - Assessment and Plan (Free Text) Assessment: 76 F PMHx HTN, A. fib, COPD, anxiety, recurrent falls admitted for sepsis from UTI and bilateral hip fractures Plan: Neuro: -Responds to name- not on any sedation -no acute issues -Head CT 08/15: negative Pulm: -inubated on vent (12, 360, 50, 60%) -Chest pigtail catheter placed 08/19 for large R pleural effusion- removed 08/23 -s/p thoracentesis of pleural effusion 08/19 WBC 12 RBC 219 Neutrophils 25 Lymphocytes 63 Monocytes 12 Fluid comment: few macrophages and mesothelials Total protein < 3 LDH 43 Glucose 106 -sputum culture (08/14/16): Yeast species. 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; great collaterals from L to R system; no coronary intervention -CHF exacerbation resolved as per cardio proBNP 01744 (08/10)--> 82611 (08/12)--> 7010 (08/26) -nonischemic cardiomyopathy -Echo 08/14: LA, LV, RA, RV appear normal; moderate to severe L systolic dysfunction; mitral, TV, Aortic valve normal; mild MR, TR with calculated pulmonary systolic pressure of 54mm consistent with mod pulmonary HTN; IVC is WNL; minimal anterior echo free space probably fat -Echo 08/09: EF 25-30%; LV systolic function severely imparied; global hypokinesia more pronounced in anterospetal area; Grade I abnl relaxation pattern on transmitral doppler flow; MR moderate to severe; mild pulm HTN -Digoxin 0.25mg po daily -Lisinopril 5mg po daily- holding parameters -Lopressor 25mg po bid- holding parameters -Lasix 20mg po daily -Patient given albumin one time 08/26 Heme: -H&H stable Renal: -jones in place -Lasix 20mg po daily Endo: -no acute issues GI: -NGT feedings @ 35cc/hr tolerating with no residuals MSK: -b/l hip fracture -patient not stable for surgical intervention ID: -WBC trending up 13.5 this AM -repeat procalcitonin 09/01 is 0.12 -procalcitonin 08/26 was 2.31 -Urine: +VRE Faecium -Tigecycline 50mg ivpb q12- today is day 4 -Tylenol for temp 650mg po q6 prn -sputum culture 08/14: Yeast species. -Diflucan 200mg IV daily x 14 days- today is day 9 DVT proph: Heparin 5000u sc q12 GI proph: Protonix 40mg po daily Code status: DNR/DNI Dispo: will consult bioethics committee Case discussed with Dr Deirdre Waters PGY2 <Efra Gilmore - Last Filed: 09/04/16 18:34> CCU Objective - Vital Signs / Intake & Output Vital Signs (Last 4 hours): Vital Signs Temp Pulse Resp BP Pulse Ox 09/04/16 18:01 73 13 132/51 L 100 09/04/16 17:01 124/47 L 09/04/16 17:00 76 21 95 09/04/16 16:01 70 20 86/46 L 100 09/04/16 16:00 98.0 F 09/04/16 15:01 73 14 125/66 100 09/04/16 15:00 71 14 100 Intake and Output (Last 8hrs): Intake & Output 09/04/16 09/04/16 09/04/16 06:59 14:59 22:59 Intake Total 480 980 390 Output Total 450 280 130 Balance 30 700 260 Intake: Intake, IV Amount 100 700 250 Right PICC 100 700 250 Oral 100 Tube Feeding 280 280 140 Output: Urine 450 280 130 Urethral (Jones) 450 280 130 - Medications Active Medications: Active Medications Generic Name Dose Route Start Last Admin Trade Name Freq PRN Reason Stop Dose Admin Acetaminophen 650 mg 08/14/16 23:50 08/25/16 00:45 Tylenol 650mg/20.3ml Solution Ud PO 650 mg Q6H PRN Administration temp.100.4&above;mild pain 1-3 Albuterol/Ipratropium 3 ml 08/16/16 14:00 09/04/16 13:21 Duoneb 3 Mg/0.5 Mg (3 Ml) Ud INH 3 ml RQ6 [place] Administration Digoxin 0.25 mg 08/30/16 18:00 09/04/16 17:01 Lanoxin PO 0.25 mg DAILY@1800 [place] Administration Furosemide 20 mg 09/05/16 10:00 Lasix PO DAILY [facility] Heparin Sodium (Porcine) 5,000 units 09/03/16 10:00 09/04/16 09:39 Heparin SC 5,000 units Q12 [place] Administration Tigecycline 50 mg/ Sodium 100 mls @ 100 mls/hr 09/01/16 12:00 09/04/16 11:48 Chloride IVPB 100 mls/hr Q12H [place] Administration Fluconazole 100 mls @ 100 mls/hr 09/03/16 11:00 09/04/16 10:40 Diflucan Iv 200 Mg/100 Ml Ns IVPB 100 mls/hr DAILY [place] Administration Lisinopril 5 mg 08/17/16 10:00 09/04/16 09:39 Zestril PO Not Given DAILY [facility] Metoprolol Tartrate 25 mg 08/12/16 18:00 09/04/16 17:01 Lopressor PO Not Given BID [place] Pantoprazole Sodium 40 mg 08/27/16 06:00 09/04/16 05:20 Protonix Susp PO 40 mg 0600 [place] Administration - Patient Studies Lab Studies: Lab Studies 09/04/16 09/04/16 09/04/16 Range/Units 06:31 06:31 03:00 WBC 13.5 H (4.8-10.8) K/uL RBC 2.59 L (3.80-5.20) Mil/uL Hgb 9.1 L (11.0-16.0) g/dL Hct 27.7 L (34.0-47.0) % MCV 107.0 H (81.0-99.0) fL MCH 35.1 H (27.0-31.0) pg MCHC 32.8 L (33.0-37.0) g/dL RDW 16.0 H (11.5-14.5) % Plt Count 269 (130-400) K/uL MPV 10.4 (7.2-11.7) fL Neut % (Auto) 90.6 H (50.0-75.0) % Lymph % (Auto) 3.9 L (20.0-40.0) % Travis % (Auto) 4.6 (0.0-10.0) % Eos % (Auto) 0.2 (0.0-4.0) % Baso % (Auto) 0.7 (0.0-2.0) % Neut # 12.2 H (1.8-7.0) K/uL Lymph # 0.5 L (1.0-4.3) K/uL Travis # 0.6 (0.0-0.8) K/uL Eos # 0.0 (0.0-0.7) K/uL Baso # 0.1 (0.0-0.2) K/uL Neutrophils % (Manual) 91 H (50-75) % Band Neutrophils % 3 H (0-2) % Lymphocytes % (Manual) 5 L (20-40) % Monocytes % (Manual) 1 (0-10) % Platelet Estimate Normal (NORMAL) Large Platelets Present Anisocytosis (manual) Slight Macrocytosis (manual) Moderate Puncture Site R brach pCO2 23 L (35-45) mm/Hg pO2 195 H (80-100) mm/Hg HCO3 21.1 (21-28) mmol/L ABG pH 7.50 H (7.35-7.45) ABG Total CO2 18.6 L (22-28) mmol/L ABG O2 Saturation 99.7 H (95-98) % ABG Base Excess -5.0 L (-2.0-3.0) mmol/L ABG Hemoglobin 5.4 L (11.7-17.4) g/dL ABG Carboxyhemoglobin 1.3 (0.5-1.5) % POC ABG HHb (Measured) 0.3 (0.0-5.0) % ABG Methemoglobin 1.2 (0.0-3.0) % Seng Test Na A-a O2 Difference 347.0 mm/Hg Respiratory Index 1.8 Hgb O2 Saturation 97.2 (95.0-98.0) % Mechanical Rate 12 FiO2 80.0 % Tidal Volume 400 PEEP 5 Crit Value Called To Holly gonzalez field return repairer Crit Value Called By Kimmie olson rt Crit Value Read Back Y Blood Gas Notified Time 603 Sodium 135 (132-148) mmol/L Potassium 3.8 (3.6-5.2) mmol/L Chloride 96 L (98-107) mmol/L Carbon Dioxide 36 H (22-30) mmol/L Anion Gap 7 L (10-20) BUN 36 H (7-17) mg/dL Creatinine 0.5 L (0.7-1.2) MG/DL Est GFR ( Amer) > 60 Est GFR (Non-Af Amer) > 60 Random Glucose 96 (65-105) mg/dL Calcium 7.3 L (8.6-10.4) mg/dl Phosphorus 2.6 (2.5-4.5) mg/dL Magnesium 1.9 (1.6-2.3) mg/dL Total Bilirubin 0.6 (0.2-1.3) mg/dL AST 21 (14-36) U/L ALT 23 (9-52) U/L Alkaline Phosphatase 173 H (38-126) U/L Total Protein 4.7 L (6.3-8.3) g/dL Albumin 2.0 L (3.5-5.0) g/dL Globulin 2.7 (2.2-3.9) gm/dL Albumin/Globulin Ratio 0.7 L (1.0-2.1) Laboratory Results - last 24 hr 09/04/16 09/04/16 09/04/16 03:00 06:31 06:31 WBC 13.5 H RBC 2.59 L Hgb 9.1 L Hct 27.7 L MCV 107.0 H MCH 35.1 H MCHC 32.8 L RDW 16.0 H Plt Count 269 MPV 10.4 Neut % (Auto) 90.6 H Lymph % (Auto) 3.9 L Travis % (Auto) 4.6 Eos % (Auto) 0.2 Baso % (Auto) 0.7 Neut # 12.2 H Lymph # 0.5 L Travis # 0.6 Eos # 0.0 Baso # 0.1 Neutrophils % (Manual) 91 H Band Neutrophils % 3 H Lymphocytes % (Manual) 5 L Monocytes % (Manual) 1 Platelet Estimate Normal Large Platelets Present Anisocytosis (manual) Slight Macrocytosis (manual) Moderate Puncture Site R brach pCO2 23 L pO2 195 H HCO3 21.1 ABG pH 7.50 H ABG Total CO2 18.6 L ABG O2 Saturation 99.7 H ABG Base Excess -5.0 L ABG Hemoglobin 5.4 L ABG Carboxyhemoglobin 1.3 POC ABG HHb (Measured) 0.3 ABG Methemoglobin 1.2 Seng Test Na A-a O2 Difference 347.0 Respiratory Index 1.8 Hgb O2 Saturation 97.2 Mechanical Rate 12 FiO2 80.0 Tidal Volume 400 PEEP 5 Crit Value Called To Holly gonzalez field return repairer Crit Value Called By Kimmie olson rt Crit Value Read Back Y Blood Gas Notified Time 603 Sodium 135 Potassium 3.8 Chloride 96 L Carbon Dioxide 36 H Anion Gap 7 L BUN 36 H Creatinine 0.5 L Est GFR ( Amer) > 60 Est GFR (Non-Af Amer) > 60 Random Glucose 96 Calcium 7.3 L Phosphorus 2.6 Magnesium 1.9 Total Bilirubin 0.6 AST 21 ALT 23 Alkaline Phosphatase 173 H Total Protein 4.7 L Albumin 2.0 L Globulin 2.7 Albumin/Globulin Ratio 0.7 L Assessment/Plan (1) Acute respiratory failure Current Visit: Yes Status: Acute Comment: Status post extubation yesterday and placed on BiPAP Continue antibiotics Start feeding after NG tube placement Followup ABG and chest x-ray Patient has risk for surgery (2) Closed fracture of greater trochanter of left femur Current Visit: Yes Status: Acute (3) Right middle lobe pneumonia Current Visit: Yes Status: Acute (4) Status post thoracentesis Current Visit: Yes Status: Acute (5) VRE (vancomycin resistant enterococcus) culture positive Current Visit: Yes Status: Acute Attending/Attestation - Attestation I have personally seen and examined this patient.: Yes I have fully participated in the care of the patient.: Yes I have reviewed all pertinent clinical information: Yes Notes (Text): 09/04/16 18:34 Today: August The Patient was seen and examined at the bedside, Medical records reviewed, all clinical/lab/hemodynamic/radiographic data were reviewed and management issues were discussed and formulated, Events reviewed Pain issues, skin care, head of the bed elevation, glycemic control were addressed. Agree with above treatment plans as transcribed in Dr. Sierra weston
--- NOTE | 2016-09-04 07:34 | CP.PCM.PN ---
Subjective - Date & Time of Evaluation Date of Evaluation: 09/04/16 Time of Evaluation: 11:16 - Subjective Subjective: Patient intubated, awake Objective - Vital Signs/Intake and Output Vital Signs (last 24 hours): Temp Pulse Resp BP Pulse Ox 98.3 F 114 H 18 109/44 L 100 09/04/16 04:00 09/04/16 07:04 09/04/16 07:04 09/04/16 07:04 09/04/16 07:04 Intake and Output: 09/04/16 09/04/16 06:59 18:59 Intake Total 720 35 Output Total 1200 Balance -480 35 - Medications Medications: Current Medications Acetaminophen (Tylenol 650mg/20.3ml Solution Ud) 650 mg PO Q6H PRN PRN Reason: temp.100.4&above;mild pain 1-3 Last Admin: 08/25/16 00:45 Dose: 650 mg Albuterol/Ipratropium (Duoneb 3 Mg/0.5 Mg (3 Ml) Ud) 3 ml INH RQ6 [facility] Last Admin: 09/04/16 00:59 Dose: 3 ml Digoxin (Lanoxin) 0.25 mg PO DAILY@1800 [facility] Last Admin: 09/03/16 17:16 Dose: 0.25 mg Furosemide (Lasix) 40 mg IVP Q48H [facility] Last Admin: 09/03/16 14:41 Dose: 40 mg Heparin Sodium (Porcine) (Heparin) 5,000 units SC Q12 [facility] Last Admin: 09/03/16 21:10 Dose: 5,000 units Tigecycline 50 mg/ Sodium (Chloride) 100 mls @ 100 mls/hr IVPB Q12H [facility] Last Admin: 09/04/16 01:00 Dose: 100 mls/hr Fluconazole (Diflucan Iv 200 Mg/100 Ml Ns) 100 mls @ 100 mls/hr IVPB DAILY [facility] Last Admin: 09/03/16 11:50 Dose: 100 mls/hr Lisinopril (Zestril) 5 mg PO DAILY [facility] Last Admin: 09/03/16 11:51 Dose: Not Given Metoprolol Tartrate (Lopressor) 25 mg PO BID [facility] Last Admin: 09/03/16 19:02 Dose: Not Given Pantoprazole Sodium (Protonix Susp) 40 mg PO 0600 [facility] Last Admin: 09/04/16 05:20 Dose: 40 mg - Labs Labs: 09/04/16 06:31 09/04/16 06:31 PT 10.6 SECONDS (9.7-12.2) 08/21/16 06:11 INR 1.0 08/21/16 06:11 APTT 29 SECONDS (21-34) 08/21/16 06:11 - Extremities Exam Additional comments: Venodynes intact, +DP, +ROM ankle/toes Assessment and Plan (1) Garden grade IV closed subcapital fracture of proximal end of right femur Assessment & Plan: Not medically stable for surgery yet cont VTE proph, decub precautions Status: Acute (2) Degenerative joint disease of right hip Status: Chronic (3) Closed fracture of greater trochanter of left femur Assessment & Plan: non operative f/u xrays acceptable position Status: Acute
[2016-09-04 08:15] LABS: BANDS 3 % (0-2); LYMPHOCYTE 5 % (20-40); MONOCYTE 1 % (0-10); NEUTROPHIL 91 % (50-75); TOTAL CELLS COUNTED 100
[2016-09-04 08:16] LABS: ANISOCYTOSIS SLIGHT; PLATELET ESTIMATE NORMAL (NORMAL)
[2016-09-04 08:17] LABS: LARGE PLATELETS PRESENT
[2016-09-04] MEDS: Fluconazole IV 200mg/100 ml NS 100 ML IVPB SCH (10:40)
[2016-09-04] MEDS ORDERED: Sodium Chloride 0.9% 500 ML IV ONE (10:57)
--- NOTE | 2016-09-04 14:40 | RAD ---
HISTORY: intubated COMPARISON: 09/03/2016 FINDINGS: LUNGS: Bilateral hyperaeration distant background COPD re- suggested. The bullous/ blood emphysematous like changes in the central and upper lung zones are renoted. Elsewhere there are patchy areas of interstitial lung marking prominence department assistant with concomitant interstitial lung disease. There is coalescence of airspace opacity left lung base blending with small left pleural effusion. A concomitant pathology at the left lung base is not excluded in mass and/or infiltrates here. Lateral view are available. However dear chest PE protocol study from 04/17/2016 did not report in the pathology here. In the current appearance may represent coalescent pulmonary edema with atelectasis and/or infiltrate rather than mass given the short interval time frame PLEURA: As above CARDIOVASCULAR: Mild cardiomegaly -unchanged OSSEOUS STRUCTURES: Generalized osteopenia, lumbar spondylosis and degenerative disc disease with thoraco lumbar level scoliosis suggested VISUALIZED UPPER ABDOMEN: Faint probable atherosclerotic vascular calcifications left upper abdomen OTHER FINDINGS: Endotracheal tube tip -level clavicles the NG tube tip in stomach. Right PICC line tip superior vena cava. IMPRESSION: Possible increased nodular patchy it atelectasis and or infiltrate at the left lung base. Or on covering of this with a interval decrease left pleural effusion Otherwise chronic changes COPD/ emphysema and chronic interstitial lung disease. Support lines as above
[2016-09-04] MEDS ORDERED: Albumin Human 5% (12.5 gm/250 ml) IV ONE ×2 (16:37)
[2016-09-04] MEDS: Digoxin 250 mcg (0.25 mg) Tab PO SCH (17:01)
[2016-09-05] MEDS: Albuterol-Ipratrop 3 mg / 0.5 (3 ml) UD INH SCH ×4 (01:15→19:10)
[2016-09-05 05:32] LABS: ARTERIAL BLOOD GAS HCO3 35.3 mmol/L (21-28); ARTERIAL BLOOD GAS HEMOGLOBIN 9.2 g/dL (11.7-17.4); ARTERIAL BLOOD GAS PCO2 46 mm/Hg (35-45); ARTERIAL BLOOD GAS PH 7.52 (7.35-7.45); ARTERIAL BLOOD GAS PO2 131 mm/Hg (80-100)
[2016-09-05] MEDS: Pantoprazole 40 mg Susp UD PO SCH (06:02)
[2016-09-05 06:41] LABS: BASO % 0.4 % (0.0-2.0); EOS # 0.1 K/uL (0.0-0.7); EOS % 1.1 % (0.0-4.0); HEMOGLOBIN 9.1 g/dL (11.0-16.0); LYMPH # 0.5 K/uL (1.0-4.3); LYMPH % 5.3 % (20.0-40.0); MEAN CELL VOLUME 107.4 fL (81.0-99.0); MEAN CORPUSCULAR HEMOGLOBIN 34.8 pg (27.0-31.0); MEAN CORPUSCULAR HGB CONC 32.4 g/dL (33.0-37.0); MEAN PLATELET VOLUME 10.5 fL (7.2-11.7); MONO # 0.6 K/uL (0.0-0.8); MONO % 5.6 % (0.0-10.0); NEUT # 8.8 K/uL (1.8-7.0); NEUT % 87.6 % (50.0-75.0); PLATELET COUNT 244 K/uL (130-400); RBC 2.61 Mil/uL (3.80-5.20); RED CELL DISTRIBUTION WIDTH 16.1 % (11.5-14.5)
[2016-09-05 06:56] LABS: ALBUMIN 2.2 g/dL (3.5-5.0)
[2016-09-05 06:59] LABS: AST/SGOT 25 U/L (14-36); GFR AFRICAN-AMERICAN > 60; GFR NON-AFRICAN AMERICAN > 60
[2016-09-05 07:00] LABS: ALT/SGPT 21 U/L (9-52); BLOOD UREA NITROGEN 34 mg/dL (7-17); CALCIUM 7.5 mg/dl (8.6-10.4); MAGNESIUM 1.9 mg/dL (1.6-2.3)
[2016-09-05 07:04] LABS: ALB/GLOB RATIO 0.8 (1.0-2.1)
--- NOTE | 2016-09-05 07:19 | CP.CCUPN ---
<Sierra Waters - Last Filed: 09/05/16 11:39> CCU Subjective - Physician Review Subjective (Free Text): 09/05/16 11:39 Patient seen and examined at bedside. Intubated on vent (12, 360, 50, 60%) off sedation Alert and follows commands and denies any pain. Afebrile and no acute events overnight. Feeds through NGT @ 35cc/hr- no residuals HR and BP labile Making good urine and patient is on lasix 20mg po daily Complete ROS unobtainable CCU Objective - Vital Signs / Intake & Output Vital Signs (Last 4 hours): Vital Signs Temp Pulse Resp BP Pulse Ox 09/05/16 06:01 70 20 127/64 100 09/05/16 05:01 79 15 118/59 L 99 09/05/16 05:00 75 13 100 09/05/16 04:00 98.1 F 116/69 98 Intake and Output (Last 8hrs): Intake & Output 09/04/16 09/05/16 09/05/16 22:59 06:59 14:59 Intake Total 530 430 35 Output Total 270 420 50 Balance 260 10 -15 Intake: Intake, IV Amount 250 100 Right PICC 250 100 Tube Feeding 280 280 35 Other 50 Output: Urine 270 420 50 Urethral (Jones) 270 420 50 Other: # Bowel Movements 1 1 - Physical Exam Head: Positive for: Normocephalic, Ecchymosis, Other (Contusions over left side of face healing). Negative for: Atraumatic Pupils: Positive for: PERRL Extroacular Muscles: Positive for: EOMI Conjunctiva: Positive for: Normal. Negative for: Injected, Icteric Mouth: Positive for: Dry, Other (ET tube in place) Nose (External): Positive for: Other (NGT in place- tolerating feeds) Neck: Negative for: JVD, Bruit Respiratory/Chest: Positive for: Good Air Exchange, Decreased Breath Sounds ( bibasilar R > L), Other (vent sounds heard throughout). Negative for: Clear to Auscultation, Respiratory Distress, Accessory Muscle Use, Wheezes, Retracting, Rhonchi Cardiovascular: Positive for: Regular Rate and Rhythm, Normal S1, S2, Peripheal Pulses Present, Other (HR labile). Negative for: Murmurs, Irregular Rhythm Abdomen: Positive for: Normal Bowel Sounds. Negative for: Tenderness, Distention, Peritoneal Signs, Rebound, Guarding Upper Extremity: Positive for: Normal Inspection, NORMAL PULSES, Other (mittens in place b/l). Negative for: Edema Lower Extremity: Positive for: NORMAL PULSES, Deformity (right leg shortened and externally rotated ), Other (grimaces when b/l hips palpated; offloading boots and SCDs in place and secure). Negative for: Normal Inspection, Edema, Normal ROM Neurological: Positive for: Other (alert and responsive). Negative for: Speech Normal Skin: Positive for: Warm, Dry, Normal Color, Other (b/l ecchymosis on face noted ). Negative for: Rashes Psychiatric: Positive for: Alert (responds to name ) - Medications Active Medications: Active Medications Generic Name Dose Route Start Last Admin Trade Name Freq PRN Reason Stop Dose Admin Acetaminophen 650 mg 08/14/16 23:50 08/25/16 00:45 Tylenol 650mg/20.3ml Solution Ud PO 650 mg Q6H PRN Administration temp.100.4&above;mild pain 1-3 Albuterol/Ipratropium 3 ml 08/16/16 14:00 09/05/16 01:15 Duoneb 3 Mg/0.5 Mg (3 Ml) Ud INH 3 ml RQ6 [place] Administration Digoxin 0.25 mg 08/30/16 18:00 09/04/16 17:01 Lanoxin PO 0.25 mg DAILY@1800 [place] Administration Furosemide 20 mg 09/05/16 10:00 Lasix PO DAILY [place] Heparin Sodium (Porcine) 5,000 units 09/03/16 10:00 09/04/16 22:13 Heparin SC 5,000 units Q12 [place] Administration Tigecycline 50 mg/ Sodium 100 mls @ 100 mls/hr 09/01/16 12:00 09/04/16 23:44 Chloride IVPB 100 mls/hr Q12H [place] Administration Fluconazole 100 mls @ 100 mls/hr 09/03/16 11:00 09/04/16 10:40 Diflucan Iv 200 Mg/100 Ml Ns IVPB 100 mls/hr DAILY [place] Administration Lisinopril 5 mg 08/17/16 10:00 09/04/16 09:39 Zestril PO Not Given DAILY [place] Metoprolol Tartrate 25 mg 08/12/16 18:00 09/04/16 17:01 Lopressor PO Not Given BID [place] Pantoprazole Sodium 40 mg 08/27/16 06:00 09/05/16 06:02 Protonix Susp PO 40 mg 0600 [place] Administration - Patient Studies Lab Studies: Lab Studies 09/05/16 09/05/16 09/05/16 Range/Units 06:22 06:22 05:03 WBC 10.0 (4.8-10.8) K/uL RBC 2.61 L (3.80-5.20) Mil/uL Hgb 9.1 L (11.0-16.0) g/dL Hct 28.1 L (34.0-47.0) % MCV 107.4 H (81.0-99.0) fL MCH 34.8 H (27.0-31.0) pg MCHC 32.4 L (33.0-37.0) g/dL RDW 16.1 H (11.5-14.5) % Plt Count 244 (130-400) K/uL MPV 10.5 (7.2-11.7) fL Neut % (Auto) 87.6 H (50.0-75.0) % Lymph % (Auto) 5.3 L (20.0-40.0) % [place] % (Auto) 5.6 (0.0-10.0) % Eos % (Auto) 1.1 (0.0-4.0) % Baso % (Auto) 0.4 (0.0-2.0) % Neut # 8.8 H (1.8-7.0) K/uL Lymph # 0.5 L (1.0-4.3) K/uL [place] # 0.6 (0.0-0.8) K/uL Eos # 0.1 (0.0-0.7) K/uL Baso # 0.0 (0.0-0.2) K/uL Neutrophils % (Manual) (50-75) % Band Neutrophils % (0-2) % Lymphocytes % (Manual) (20-40) % Monocytes % (Manual) (0-10) % Platelet Estimate (NORMAL) Large Platelets Anisocytosis (manual) Macrocytosis (manual) Puncture Site R brach pCO2 46 H (35-45) mm/Hg pO2 131 H (80-100) mm/Hg HCO3 35.3 H (21-28) mmol/L ABG pH 7.52 H (7.35-7.45) ABG Total CO2 39.0 H (22-28) mmol/L ABG O2 Saturation 100.0 H (95-98) % ABG Base Excess 13.3 H (-2.0-3.0) mmol/L ABG Hemoglobin 9.2 L (11.7-17.4) g/dL ABG Carboxyhemoglobin 1.6 H (0.5-1.5) % POC ABG HHb (Measured) 0.0 (0.0-5.0) % ABG Methemoglobin 0.9 (0.0-3.0) % Seng Test Na A-a O2 Difference 239.0 mm/Hg Respiratory Index 1.8 Hgb O2 Saturation 97.5 (95.0-98.0) % Mechanical Rate 12 FiO2 60.0 % Tidal Volume 360 PEEP 5 Sodium 136 (132-148) mmol/L Potassium 4.0 (3.6-5.2) mmol/L Chloride 98 (98-107) mmol/L Carbon Dioxide 34 H (22-30) mmol/L Anion Gap 8 L (10-20) BUN 34 H (7-17) mg/dL Creatinine 0.5 L (0.7-1.2) MG/DL Est GFR ( Amer) > 60 Est GFR (Non-Af Amer) > 60 Random Glucose 94 (65-105) mg/dL Calcium 7.5 L (8.6-10.4) mg/dl Phosphorus 2.6 (2.5-4.5) mg/dL Magnesium 1.9 (1.6-2.3) mg/dL Total Bilirubin 0.6 (0.2-1.3) mg/dL AST 25 (14-36) U/L ALT 21 (9-52) U/L Alkaline Phosphatase 181 H (38-126) U/L Total Protein 5.1 L (6.3-8.3) g/dL Albumin 2.2 L (3.5-5.0) g/dL Globulin 2.9 (2.2-3.9) gm/dL Albumin/Globulin Ratio 0.8 L (1.0-2.1) 09/04/16 09/04/16 Range/Units 06:31 06:31 WBC (4.8-10.8) K/uL RBC (3.80-5.20) Mil/uL Hgb (11.0-16.0) g/dL Hct (34.0-47.0) % MCV (81.0-99.0) fL MCH (27.0-31.0) pg MCHC (33.0-37.0) g/dL RDW (11.5-14.5) % Plt Count (130-400) K/uL MPV (7.2-11.7) fL Neut % (Auto) (50.0-75.0) % Lymph % (Auto) (20.0-40.0) % [place] % (Auto) (0.0-10.0) % Eos % (Auto) (0.0-4.0) % Baso % (Auto) (0.0-2.0) % Neut # (1.8-7.0) K/uL Lymph # (1.0-4.3) K/uL [place] # (0.0-0.8) K/uL Eos # (0.0-0.7) K/uL Baso # (0.0-0.2) K/uL Neutrophils % (Manual) 91 H (50-75) % Band Neutrophils % 3 H (0-2) % Lymphocytes % (Manual) 5 L (20-40) % Monocytes % (Manual) 1 (0-10) % Platelet Estimate Normal (NORMAL) Large Platelets Present Anisocytosis (manual) Slight Macrocytosis (manual) Moderate Puncture Site pCO2 (35-45) mm/Hg pO2 (80-100) mm/Hg HCO3 (21-28) mmol/L ABG pH (7.35-7.45) ABG Total CO2 (22-28) mmol/L ABG O2 Saturation (95-98) % ABG Base Excess (-2.0-3.0) mmol/L ABG Hemoglobin (11.7-17.4) g/dL ABG Carboxyhemoglobin (0.5-1.5) % POC ABG HHb (Measured) (0.0-5.0) % ABG Methemoglobin (0.0-3.0) % Seng Test A-a O2 Difference mm/Hg Respiratory Index Hgb O2 Saturation (95.0-98.0) % Mechanical Rate FiO2 % Tidal Volume PEEP Sodium 135 (132-148) mmol/L Potassium 3.8 (3.6-5.2) mmol/L Chloride 96 L (98-107) mmol/L Carbon Dioxide 36 H (22-30) mmol/L Anion Gap 7 L (10-20) BUN 36 H (7-17) mg/dL Creatinine 0.5 L (0.7-1.2) MG/DL Est GFR ( Amer) > 60 Est GFR (Non-Af Amer) > 60 Random Glucose 96 (65-105) mg/dL Calcium 7.3 L (8.6-10.4) mg/dl Phosphorus 2.6 (2.5-4.5) mg/dL Magnesium 1.9 (1.6-2.3) mg/dL Total Bilirubin 0.6 (0.2-1.3) mg/dL AST 21 (14-36) U/L ALT 23 (9-52) U/L Alkaline Phosphatase 173 H (38-126) U/L Total Protein 4.7 L (6.3-8.3) g/dL Albumin 2.0 L (3.5-5.0) g/dL Globulin 2.7 (2.2-3.9) gm/dL Albumin/Globulin Ratio 0.7 L (1.0-2.1) Laboratory Results - last 24 hr 09/04/16 09/04/16 09/05/16 06:31 06:31 05:03 WBC RBC Hgb Hct MCV MCH MCHC RDW Plt Count MPV Neut % (Auto) Lymph % (Auto) [place] % (Auto) Eos % (Auto) Baso % (Auto) Neut # Lymph # [place] # Eos # Baso # Neutrophils % (Manual) 91 H Band Neutrophils % 3 H Lymphocytes % (Manual) 5 L Monocytes % (Manual) 1 Platelet Estimate Normal Large Platelets Present Anisocytosis (manual) Slight Macrocytosis (manual) Moderate Puncture Site R brach pCO2 46 H pO2 131 H HCO3 35.3 H ABG pH 7.52 H ABG Total CO2 39.0 H ABG O2 Saturation 100.0 H ABG Base Excess 13.3 H ABG Hemoglobin 9.2 L ABG Carboxyhemoglobin 1.6 H POC ABG HHb (Measured) 0.0 ABG Methemoglobin 0.9 Seng Test Na A-a O2 Difference 239.0 Respiratory Index 1.8 Hgb O2 Saturation 97.5 Mechanical Rate 12 FiO2 60.0 Tidal Volume 360 PEEP 5 Sodium 135 Potassium 3.8 Chloride 96 L Carbon Dioxide 36 H Anion Gap 7 L BUN 36 H Creatinine 0.5 L Est GFR ( Amer) > 60 Est GFR (Non-Af Amer) > 60 Random Glucose 96 Calcium 7.3 L Phosphorus 2.6 Magnesium 1.9 Total Bilirubin 0.6 AST 21 ALT 23 Alkaline Phosphatase 173 H Total Protein 4.7 L Albumin 2.0 L Globulin 2.7 Albumin/Globulin Ratio 0.7 L 09/05/16 09/05/16 06:22 06:22 WBC 10.0 RBC 2.61 L Hgb 9.1 L Hct 28.1 L MCV 107.4 H MCH 34.8 H MCHC 32.4 L RDW 16.1 H Plt Count 244 MPV 10.5 Neut % (Auto) 87.6 H Lymph % (Auto) 5.3 L [place] % (Auto) 5.6 Eos % (Auto) 1.1 Baso % (Auto) 0.4 Neut # 8.8 H Lymph # 0.5 L [place] # 0.6 Eos # 0.1 Baso # 0.0 Neutrophils % (Manual) Band Neutrophils % Lymphocytes % (Manual) Monocytes % (Manual) Platelet Estimate Large Platelets Anisocytosis (manual) Macrocytosis (manual) Puncture Site pCO2 pO2 HCO3 ABG pH ABG Total CO2 ABG O2 Saturation ABG Base Excess ABG Hemoglobin ABG Carboxyhemoglobin POC ABG HHb (Measured) ABG Methemoglobin Seng Test A-a O2 Difference Respiratory Index Hgb O2 Saturation Mechanical Rate FiO2 Tidal Volume PEEP Sodium 136 Potassium 4.0 Chloride 98 Carbon Dioxide 34 H Anion Gap 8 L BUN 34 H Creatinine 0.5 L Est GFR ( Amer) > 60 Est GFR (Non-Af Amer) > 60 Random Glucose 94 Calcium 7.5 L Phosphorus 2.6 Magnesium 1.9 Total Bilirubin 0.6 AST 25 ALT 21 Alkaline Phosphatase 181 H Total Protein 5.1 L Albumin 2.2 L Globulin 2.9 Albumin/Globulin Ratio 0.8 L Review of Systems - Review of Systems Systems not reviewed;Unavailable: Acuity of Condition Assessment/Plan - Assessment and Plan (Free Text) Assessment: 76 F PMHx HTN, A. fib, COPD, anxiety, recurrent falls admitted for sepsis from UTI and bilateral hip fractures Plan: Neuro: -Responds to name- not on any sedation -no acute issues -Head CT 08/15: negative Pulm: -inubated on vent (12, 360, 50, 60%) -Chest pigtail catheter placed 08/19 for large R pleural effusion- removed 08/23 -s/p thoracentesis of pleural effusion 08/19 WBC 12 RBC 219 Neutrophils 25 Lymphocytes 63 Monocytes 12 Fluid comment: few macrophages and mesothelials Total protein < 3 LDH 43 Glucose 106 -sputum culture (08/14/16): Yeast species. 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; great collaterals from L to R system; no coronary intervention -CHF exacerbation resolved as per cardio proBNP 54528 (08/10)--> 40489 (08/12)--> 7010 (08/26) -nonischemic cardiomyopathy -Echo 08/14: LA, LV, RA, RV appear normal; moderate to severe L systolic dysfunction; mitral, TV, Aortic valve normal; mild MR, TR with calculated pulmonary systolic pressure of 54mm consistent with mod pulmonary HTN; IVC is WNL; minimal anterior echo free space probably fat -Echo 08/09: EF 25-30%; LV systolic function severely imparied; global hypokinesia more pronounced in anterospetal area; Grade I abnl relaxation pattern on transmitral doppler flow; MR moderate to severe; mild pulm HTN -Digoxin 0.25mg po daily -Lisinopril 5mg po daily- holding parameters -Lopressor 25mg po bid- holding parameters -Lasix 20mg po daily -Patient given albumin one time 08/26 Heme: -H&H stable Renal: -jones in place -Lasix 20mg po daily Endo: -no acute issues GI: -NGT feedings @ 35cc/hr tolerating with no residuals MSK: -b/l hip fracture -patient not stable for surgical intervention ID: -repeat procalcitonin 09/01 is 0.12 -procalcitonin 08/26 was 2.31 -Urine: +VRE Faecium -Tigecycline 50mg ivpb q12- today is day 5 -Tylenol for temp 650mg po q6 prn -sputum culture 08/14: Yeast species. -Diflucan 200mg IV daily x 14 days- today is day 10 DVT proph: Heparin 5000u sc q12 GI proph: Protonix 40mg po daily Code status: DNR/DNI Dispo: family meeting to discuss goals of care Case discussed with Dr Zak Waters PGY2 <Maurizio Crespo - Last Filed: 09/05/16 17:49> CCU Objective - Vital Signs / Intake & Output Vital Signs (Last 4 hours): Vital Signs Temp Pulse Resp BP 09/05/16 16:02 64 15 116/61 09/05/16 16:00 97.5 F L 09/05/16 15:02 67 21 131/61 09/05/16 15:00 66 22 09/05/16 14:01 91/46 L 09/05/16 14:00 68 13 Intake and Output (Last 8hrs): Intake & Output 09/05/16 09/05/16 09/05/16 06:59 14:59 22:59 Intake Total 430 630 120 Output Total 420 360 85 Balance 10 270 35 Intake: Intake, IV Amount 100 200 Right PICC 100 200 Tube Feeding 280 280 70 Other 50 150 50 Output: Urine 420 360 85 Urethral (Jones) 420 360 85 Other: # Bowel Movements 1 - Medications Active Medications: Active Medications Generic Name Dose Route Start Last Admin Trade Name Freq PRN Reason Stop Dose Admin Acetaminophen 650 mg 08/14/16 23:50 08/25/16 00:45 Tylenol 650mg/20.3ml Solution Ud PO 650 mg Q6H PRN Administration temp.100.4&above;mild pain 1-3 Albuterol/Ipratropium 3 ml 08/16/16 14:00 09/05/16 13:41 Duoneb 3 Mg/0.5 Mg (3 Ml) Ud INH 3 ml RQ6 [place] Administration Digoxin 0.25 mg 08/30/16 18:00 09/04/16 17:01 Lanoxin PO 0.25 mg DAILY@1800 [place] Administration Furosemide 20 mg 09/05/16 10:00 09/05/16 09:36 Lasix PO 20 mg DAILY [place] Administration Heparin Sodium (Porcine) 5,000 units 09/03/16 10:00 09/05/16 09:35 Heparin SC 5,000 units Q12 [place] Administration Tigecycline 50 mg/ Sodium 100 mls @ 100 mls/hr 09/01/16 12:00 09/05/16 12:26 Chloride IVPB 100 mls/hr Q12H [place] Administration Fluconazole 100 mls @ 100 mls/hr 09/03/16 11:00 09/05/16 09:34 Diflucan Iv 200 Mg/100 Ml Ns IVPB 100 mls/hr DAILY [place] Administration Lisinopril 5 mg 08/17/16 10:00 09/05/16 09:35 Zestril PO 5 mg DAILY [place] Administration Metoprolol Tartrate 25 mg 08/12/16 18:00 09/05/16 09:36 Lopressor PO 25 mg BID [place] Administration Pantoprazole Sodium 40 mg 08/27/16 06:00 09/05/16 06:02 Protonix Susp PO 40 mg 0600 [place] Administration - Patient Studies Lab Studies: Lab Studies 09/05/16 09/05/16 09/05/16 Range/Units 06:22 06:22 05:03 WBC 10.0 (4.8-10.8) K/uL RBC 2.61 L (3.80-5.20) Mil/uL Hgb 9.1 L (11.0-16.0) g/dL Hct 28.1 L (34.0-47.0) % MCV 107.4 H (81.0-99.0) fL MCH 34.8 H (27.0-31.0) pg MCHC 32.4 L (33.0-37.0) g/dL RDW 16.1 H (11.5-14.5) % Plt Count 244 (130-400) K/uL MPV 10.5 (7.2-11.7) fL Neut % (Auto) 87.6 H (50.0-75.0) % Lymph % (Auto) 5.3 L (20.0-40.0) % [place] % (Auto) 5.6 (0.0-10.0) % Eos % (Auto) 1.1 (0.0-4.0) % Baso % (Auto) 0.4 (0.0-2.0) % Neut # 8.8 H (1.8-7.0) K/uL Lymph # 0.5 L (1.0-4.3) K/uL [place] # 0.6 (0.0-0.8) K/uL Eos # 0.1 (0.0-0.7) K/uL Baso # 0.0 (0.0-0.2) K/uL Neutrophils % (Manual) 75 (50-75) % Band Neutrophils % 7 H (0-2) % Lymphocytes % (Manual) 8 L (20-40) % Monocytes % (Manual) 8 (0-10) % Eosinophils % (Manual) 2 (0-4) % Platelet Estimate Normal (NORMAL) Large Platelets Present Basophilic Stippling Slight Anisocytosis (manual) Slight Puncture Site R brach pCO2 46 H (35-45) mm/Hg pO2 131 H (80-100) mm/Hg HCO3 35.3 H (21-28) mmol/L ABG pH 7.52 H (7.35-7.45) ABG Total CO2 39.0 H (22-28) mmol/L ABG O2 Saturation 100.0 H (95-98) % ABG Base Excess 13.3 H (-2.0-3.0) mmol/L ABG Hemoglobin 9.2 L (11.7-17.4) g/dL ABG Carboxyhemoglobin 1.6 H (0.5-1.5) % POC ABG HHb (Measured) 0.0 (0.0-5.0) % ABG Methemoglobin 0.9 (0.0-3.0) % Seng Test Na A-a O2 Difference 239.0 mm/Hg Respiratory Index 1.8 Hgb O2 Saturation 97.5 (95.0-98.0) % Mechanical Rate 12 FiO2 60.0 % Tidal Volume 360 PEEP 5 Sodium 136 (132-148) mmol/L Potassium 4.0 (3.6-5.2) mmol/L Chloride 98 (98-107) mmol/L Carbon Dioxide 34 H (22-30) mmol/L Anion Gap 8 L (10-20) BUN 34 H (7-17) mg/dL Creatinine 0.5 L (0.7-1.2) MG/DL Est GFR ( Amer) > 60 Est GFR (Non-Af Amer) > 60 Random Glucose 94 (65-105) mg/dL Calcium 7.5 L (8.6-10.4) mg/dl Phosphorus 2.6 (2.5-4.5) mg/dL Magnesium 1.9 (1.6-2.3) mg/dL Total Bilirubin 0.6 (0.2-1.3) mg/dL AST 25 (14-36) U/L ALT 21 (9-52) U/L Alkaline Phosphatase 181 H (38-126) U/L Total Protein 5.1 L (6.3-8.3) g/dL Albumin 2.2 L (3.5-5.0) g/dL Globulin 2.9 (2.2-3.9) gm/dL Albumin/Globulin Ratio 0.8 L (1.0-2.1) Laboratory Results - last 24 hr 09/05/16 09/05/16 09/05/16 05:03 06:22 06:22 WBC 10.0 RBC 2.61 L Hgb 9.1 L Hct 28.1 L MCV 107.4 H MCH 34.8 H MCHC 32.4 L RDW 16.1 H Plt Count 244 MPV 10.5 Neut % (Auto) 87.6 H Lymph % (Auto) 5.3 L [place] % (Auto) 5.6 Eos % (Auto) 1.1 Baso % (Auto) 0.4 Neut # 8.8 H Lymph # 0.5 L [place] # 0.6 Eos # 0.1 Baso # 0.0 Neutrophils % (Manual) 75 Band Neutrophils % 7 H Lymphocytes % (Manual) 8 L Monocytes % (Manual) 8 Eosinophils % (Manual) 2 Platelet Estimate Normal Large Platelets Present Basophilic Stippling Slight Anisocytosis (manual) Slight Puncture Site R brach pCO2 46 H pO2 131 H HCO3 35.3 H ABG pH 7.52 H ABG Total CO2 39.0 H ABG O2 Saturation 100.0 H ABG Base Excess 13.3 H ABG Hemoglobin 9.2 L ABG Carboxyhemoglobin 1.6 H POC ABG HHb (Measured) 0.0 ABG Methemoglobin 0.9 Seng Test Na A-a O2 Difference 239.0 Respiratory Index 1.8 Hgb O2 Saturation 97.5 Mechanical Rate 12 FiO2 60.0 Tidal Volume 360 PEEP 5 Sodium 136 Potassium 4.0 Chloride 98 Carbon Dioxide 34 H Anion Gap 8 L BUN 34 H Creatinine 0.5 L Est GFR ( Amer) > 60 Est GFR (Non-Af Amer) > 60 Random Glucose 94 Calcium 7.5 L Phosphorus 2.6 Magnesium 1.9 Total Bilirubin 0.6 AST 25 ALT 21 Alkaline Phosphatase 181 H Total Protein 5.1 L Albumin 2.2 L Globulin 2.9 Albumin/Globulin Ratio 0.8 L Assessment/Plan (1) Acute respiratory failure Current Visit: Yes Status: Acute Comment: Status post extubation yesterday and placed on BiPAP Continue antibiotics Start feeding after NG tube placement Followup ABG and chest x-ray Patient has risk for surgery (2) CHF exacerbation Current Visit: Yes Status: Resolved (3) Closed fracture of greater trochanter of left femur Current Visit: Yes Status: Acute (4) Garden grade IV closed subcapital fracture of proximal end of right femur Current Visit: Yes Status: Acute Attending/Attestation - Attestation I have personally seen and examined this patient.: Yes I have fully participated in the care of the patient.: Yes I have reviewed all pertinent clinical information: Yes Notes (Text): 09/05/16 17:47 patient seen and examined in the intensive care unit. Case discussed with house staff in the morning rounds. Remains intubated on ventilatory support No change in patient condition Tried contacting sister for further management decision/
[2016-09-05 08:16] LABS: ANISOCYTOSIS SLIGHT; BANDS 7 % (0-2); EOSINOPHIL 2 % (0-4); LYMPHOCYTE 8 % (20-40); MONOCYTE 8 % (0-10); NEUTROPHIL 75 % (50-75); PLATELET ESTIMATE NORMAL (NORMAL); TOTAL CELLS COUNTED 100
[2016-09-05 08:17] LABS: LARGE PLATELETS PRESENT
[2016-09-05] MEDS: Fluconazole IV 200mg/100 ml NS 100 ML IVPB SCH (09:34)
--- NOTE | 2016-09-05 10:22 | CP.PCM.PN ---
Subjective - Date & Time of Evaluation Date of Evaluation: 09/05/16 Time of Evaluation: 10:18 - Subjective Subjective: Patient awake, intubated. Objective - Vital Signs/Intake and Output Vital Signs (last 24 hours): Temp Pulse Resp BP Pulse Ox 98.1 F 70 20 131/62 100 09/05/16 04:00 09/05/16 06:01 09/05/16 06:01 09/05/16 09:36 09/05/16 06:01 Intake and Output: 09/05/16 09/05/16 06:59 18:59 Intake Total 570 35 Output Total 560 50 Balance 10 -15 - Medications Medications: Current Medications Acetaminophen (Tylenol 650mg/20.3ml Solution Ud) 650 mg PO Q6H PRN PRN Reason: temp.100.4&above;mild pain 1-3 Last Admin: 08/25/16 00:45 Dose: 650 mg Albuterol/Ipratropium (Duoneb 3 Mg/0.5 Mg (3 Ml) Ud) 3 ml INH RQ6 [facility] Last Admin: 09/05/16 08:56 Dose: 3 ml Digoxin (Lanoxin) 0.25 mg PO DAILY@1800 [facility] Last Admin: 09/04/16 17:01 Dose: 0.25 mg Furosemide (Lasix) 20 mg PO DAILY [facility] Last Admin: 09/05/16 09:36 Dose: 20 mg Heparin Sodium (Porcine) (Heparin) 5,000 units SC Q12 [facility] Last Admin: 09/05/16 09:35 Dose: 5,000 units Tigecycline 50 mg/ Sodium (Chloride) 100 mls @ 100 mls/hr IVPB Q12H [facility] Last Admin: 09/04/16 23:44 Dose: 100 mls/hr Fluconazole (Diflucan Iv 200 Mg/100 Ml Ns) 100 mls @ 100 mls/hr IVPB DAILY [facility] Last Admin: 09/05/16 09:34 Dose: 100 mls/hr Lisinopril (Zestril) 5 mg PO DAILY [facility] Last Admin: 09/05/16 09:35 Dose: 5 mg Metoprolol Tartrate (Lopressor) 25 mg PO BID [facility] Last Admin: 09/05/16 09:36 Dose: 25 mg Pantoprazole Sodium (Protonix Susp) 40 mg PO 0600 [facility] Last Admin: 09/05/16 06:02 Dose: 40 mg - Labs Labs: 09/05/16 06:22 09/05/16 06:22 PT 10.6 SECONDS (9.7-12.2) 08/21/16 06:11 INR 1.0 08/21/16 06:11 APTT 29 SECONDS (21-34) 08/21/16 06:11 - Extremities Exam Additional comments: RLE: shortened ER, ROM ankle/toes, calves soft NT neg homans +edema Assessment and Plan (1) Garden grade IV closed subcapital fracture of proximal end of right femur Assessment & Plan: not surgical candidate at this time Bioethics committee consulted Dr. Elena notified of above, agrees with consultation Status: Acute (2) Degenerative joint disease of right hip Status: Chronic (3) Closed fracture of greater trochanter of left femur Status: Acute
--- NOTE | 2016-09-05 10:26 | RAD ---
Chest x-ray single frontal view History: Intubated. Comparison: 09/04/2016 Findings: Lines and tubes in stable position. Biapical pleural thickening with upper lobe granulomatous changes. Diffuse increased interstitial lung markings. Patchy increased consolidative markings within the lung bases with associated small to moderate left and small right pleural effusion. Scattered nodularity throughout both lungs most prominent at the lung bases. Bibasilar airspace opacities. Degenerative changes in the spine. Impression: No significant interval change.
--- NOTE | 2016-09-05 13:27 | CP.PCM.CON ---
History of Present Illness - History of Present Illness History of Present Illness: 76 year old female who is intubated in the ICU and continues to decline. She came in with bilateral hip fractures, and since then suffered from respiratory failure and has been intubated three times, suffered cardiac arrest and was resuscitated. Has end-stage CHF, pneumonia. She requires pressure support and is not responding to antimicrobials, including antibiotics and antifungals. Has VRE bacteremia. Family has signed AND/DNI orders and are aware of her condition. The sister is her next of kin, as her is demented and her son has reduced mental capacity. Past Patient History - Infectious Disease Hx of Infectious Diseases: None - Tetanus Immunizations Tetanus Immunization: Unknown - Past Medical History & Family History Past Medical History?: Yes Past Family History: Reviewed and not pertinent - Past Social History Smoking Status: Heavy Smoker > 10 Cigarettes Daily Alcohol: None Drugs: Denies Home Situation {Lives}: With Family Domestic Violence: Negative - CARDIAC Hx Congestive Heart Failure: Yes Hx Hypertension: Yes - PULMONARY Hx Bronchitis: Yes Hx Emphysema: Yes - NEUROLOGICAL Hx Neurological Disorder: No - HEENT Hx HEENT Problems: Yes Hx Cataracts: Yes - RENAL Hx Chronic Kidney Disease: No - ENDOCRINE/METABOLIC Hx Endocrine Disorders: No - HEMATOLOGICAL/ONCOLOGICAL Hx Blood Disorders: No - INTEGUMENTARY Hx Dermatological Problems: No - MUSCULOSKELETAL/RHEUMATOLOGICAL Hx Arthritis: Yes - GASTROINTESTINAL Hx Gastrointestinal Disorders: No - GENITOURINARY/GYNECOLOGICAL Hx Genitourinary Disorders: No - PSYCHIATRIC Hx Anxiety: Yes Hx Substance Use: No - SURGICAL HISTORY Hx Appendectomy: Yes Hx Eye Surgery: Yes - ANESTHESIA Hx Anesthesia: Yes Hx Anesthesia Reactions: Yes ("cough") Hx Malignant Hyperthermia: No Has any member of the family had a problem w/ anesthesia?: No Meds Allergies/Adverse Reactions: Allergies Allergy/AdvReac Type Severity Reaction Status Date / Time EGG Allergy DIZZINESS Verified 08/07/16 13:37 - Medications Medications: Current Medications Acetaminophen (Tylenol 650mg/20.3ml Solution Ud) 650 mg PO Q6H PRN PRN Reason: temp.100.4&above;mild pain 1-3 Last Admin: 08/25/16 00:45 Dose: 650 mg Albuterol/Ipratropium (Duoneb 3 Mg/0.5 Mg (3 Ml) Ud) 3 ml INH RQ6 [place] Last Admin: 09/05/16 08:56 Dose: 3 ml Digoxin (Lanoxin) 0.25 mg PO DAILY@1800 [facility] Last Admin: 09/04/16 17:01 Dose: 0.25 mg Furosemide (Lasix) 20 mg PO DAILY [facility] Last Admin: 09/05/16 09:36 Dose: 20 mg Heparin Sodium (Porcine) (Heparin) 5,000 units SC Q12 [facility] Last Admin: 09/05/16 09:35 Dose: 5,000 units Tigecycline 50 mg/ Sodium (Chloride) 100 mls @ 100 mls/hr IVPB Q12H [facility] Last Admin: 09/05/16 12:26 Dose: 100 mls/hr Fluconazole (Diflucan Iv 200 Mg/100 Ml Ns) 100 mls @ 100 mls/hr IVPB DAILY [facility] Last Admin: 09/05/16 09:34 Dose: 100 mls/hr Lisinopril (Zestril) 5 mg PO DAILY [facility] Last Admin: 09/05/16 09:35 Dose: 5 mg Metoprolol Tartrate (Lopressor) 25 mg PO BID [facility] Last Admin: 09/05/16 09:36 Dose: 25 mg Pantoprazole Sodium (Protonix Susp) 40 mg PO 0600 [facility] Last Admin: 09/05/16 06:02 Dose: 40 mg Results - Vital Signs Recent Vital Signs: Last Vital Signs Temp 98.2 F 09/05/16 08:00 Pulse 57 L 09/05/16 11:00 Resp 12 09/05/16 11:00 BP 115/45 L 09/05/16 11:01 Pulse Ox 100 09/05/16 11:00 - Labs Result Diagrams: 09/05/16 06:22 09/05/16 06:22 Labs: Laboratory Results - last 24 hr 09/05/16 09/05/16 09/05/16 05:03 06:22 06:22 WBC 10.0 RBC 2.61 L Hgb 9.1 L Hct 28.1 L MCV 107.4 H MCH 34.8 H MCHC 32.4 L RDW 16.1 H Plt Count 244 MPV 10.5 Neut % (Auto) 87.6 H Lymph % (Auto) 5.3 L [place] % (Auto) 5.6 Eos % (Auto) 1.1 Baso % (Auto) 0.4 Neut # 8.8 H Lymph # 0.5 L [place] # 0.6 Eos # 0.1 Baso # 0.0 Neutrophils % (Manual) 75 Band Neutrophils % 7 H Lymphocytes % (Manual) 8 L Monocytes % (Manual) 8 Eosinophils % (Manual) 2 Platelet Estimate Normal Large Platelets Present Basophilic Stippling Slight Anisocytosis (manual) Slight Puncture Site R brach pCO2 46 H pO2 131 H HCO3 35.3 H ABG pH 7.52 H ABG Total CO2 39.0 H ABG O2 Saturation 100.0 H ABG Base Excess 13.3 H ABG Hemoglobin 9.2 L ABG Carboxyhemoglobin 1.6 H POC ABG HHb (Measured) 0.0 ABG Methemoglobin 0.9 Seng Test Na A-a O2 Difference 239.0 Respiratory Index 1.8 Hgb O2 Saturation 97.5 Mechanical Rate 12 FiO2 60.0 Tidal Volume 360 PEEP 5 Sodium 136 Potassium 4.0 Chloride 98 Carbon Dioxide 34 H Anion Gap 8 L BUN 34 H Creatinine 0.5 L Est GFR ( Amer) > 60 Est GFR (Non-Af Amer) > 60 Random Glucose 94 Calcium 7.5 L Phosphorus 2.6 Magnesium 1.9 Total Bilirubin 0.6 AST 25 ALT 21 Alkaline Phosphatase 181 H Total Protein 5.1 L Albumin 2.2 L Globulin 2.9 Albumin/Globulin Ratio 0.8 L Assessment & Plan (1) Acute respiratory failure Status: Acute - Assessment and Plan (Free Text) Assessment: The patient is worsening despite full life support and all treatment modalities consistent with medical standards. It is appropriate at this time to discuss changing the plan of care to one that focuses on comfort rather than curative modalities. IV morphine, extubation, and comfort measures are appropriate after discussion with the family.
--- NOTE | 2016-09-05 16:24 | CP.PCM.PN ---
Subjective - Date & Time of Evaluation Date of Evaluation: 09/05/16 Time of Evaluation: 10:00 - Subjective Subjective: awake/ intubated afebrile iv rx in progress Objective - Vital Signs/Intake and Output Vital Signs (last 24 hours): Temp Pulse Resp BP Pulse Ox 98.2 F 57 L 12 115/45 L 100 09/05/16 12:00 09/05/16 11:00 09/05/16 11:00 09/05/16 11:01 09/05/16 11:00 Intake and Output: 09/05/16 09/05/16 06:59 18:59 Intake Total 570 665 Output Total 560 395 Balance 10 270 - Medications Medications: Current Medications Acetaminophen (Tylenol 650mg/20.3ml Solution Ud) 650 mg PO Q6H PRN PRN Reason: temp.100.4&above;mild pain 1-3 Last Admin: 08/25/16 00:45 Dose: 650 mg Albuterol/Ipratropium (Duoneb 3 Mg/0.5 Mg (3 Ml) Ud) 3 ml INH RQ6 [facility] Last Admin: 09/05/16 13:41 Dose: 3 ml Digoxin (Lanoxin) 0.25 mg PO DAILY@1800 [facility] Last Admin: 09/04/16 17:01 Dose: 0.25 mg Furosemide (Lasix) 20 mg PO DAILY [facility] Last Admin: 09/05/16 09:36 Dose: 20 mg Heparin Sodium (Porcine) (Heparin) 5,000 units SC Q12 [facility] Last Admin: 09/05/16 09:35 Dose: 5,000 units Tigecycline 50 mg/ Sodium (Chloride) 100 mls @ 100 mls/hr IVPB Q12H [facility] Last Admin: 09/05/16 12:26 Dose: 100 mls/hr Fluconazole (Diflucan Iv 200 Mg/100 Ml Ns) 100 mls @ 100 mls/hr IVPB DAILY [facility] Last Admin: 09/05/16 09:34 Dose: 100 mls/hr Lisinopril (Zestril) 5 mg PO DAILY [facility] Last Admin: 09/05/16 09:35 Dose: 5 mg Metoprolol Tartrate (Lopressor) 25 mg PO BID [facility] Last Admin: 09/05/16 09:36 Dose: 25 mg Pantoprazole Sodium (Protonix Susp) 40 mg PO 0600 [facility] Last Admin: 09/05/16 06:02 Dose: 40 mg - Labs Labs: 09/05/16 06:22 09/05/16 06:22 PT 10.6 SECONDS (9.7-12.2) 08/21/16 06:11 INR 1.0 08/21/16 06:11 APTT 29 SECONDS (21-34) 08/21/16 06:11 - Constitutional Appears: Non-toxic, Cachectic, Chronically Ill - Head Exam Head Exam: NORMOCEPHALIC - Eye Exam Eye Exam: PERRL. absent: Scleral icterus - ENT Exam ENT Exam: Mucous Membranes Dry, Normal External Ear Exam - Neck Exam Neck Exam: absent: Lymphadenopathy - Respiratory Exam Respiratory Exam: Decreased Breath Sounds, Rhonchi - Cardiovascular Exam Cardiovascular Exam: REGULAR RHYTHM, +S1, +S2 - GI/Abdominal Exam GI & Abdominal Exam: Distended, Soft. absent: Tenderness - Rectal Exam Rectal Exam: Deferred - Exam Exam: NORMAL INSPECTION - Extremities Exam Extremities Exam: absent: Pedal Edema - Back Exam Back Exam: absent: CVA tenderness (L), CVA tenderness (R) - Neurological Exam Neurological Exam: Alert, Awake, Oriented x3 - Psychiatric Exam Psychiatric exam: Depressed - Skin Skin Exam: Dry Assessment and Plan (1) Acute respiratory failure Status: Acute (2) Closed fracture of greater trochanter of left femur Status: Acute (3) Contusion of head Status: Acute (4) Fall Status: Acute (5) Garden grade IV closed subcapital fracture of proximal end of right femur Status: Acute (6) Pelvic fracture Status: Acute (7) Pleural effusion due to CHF (congestive heart failure) Status: Acute (8) Right middle lobe pneumonia Status: Acute (9) CHF (NYHA class III, ACC/AHA stage C) Status: Chronic (10) Degenerative joint disease of right hip Status: Chronic (11) Multifocal atrial tachycardia Status: Chronic (12) Arrhythmia Status: Resolved (13) CHF exacerbation Status: Resolved (14) Dehydration Status: Resolved (15) Pleural effusion, right Status: Resolved (16) Sepsis Status: Resolved
[2016-09-05] MEDS: Digoxin 250 mcg (0.25 mg) Tab PO SCH (18:10)
--- NOTE | 2016-09-05 19:51 | CP.PCM.PN ---
Subjective - Date & Time of Evaluation Date of Evaluation: 09/05/16 Time of Evaluation: 19:48 - Subjective Subjective: Patient awake, responsive, on respirator, with copious secretion. Afebrile. Urine output good. Objective - Vital Signs/Intake and Output Vital Signs (last 24 hours): Temp Pulse Resp BP Pulse Ox 97.5 F L 61 25 H 103/65 100 09/05/16 16:00 09/05/16 18:01 09/05/16 18:01 09/05/16 18:11 09/05/16 18:01 Intake and Output: 09/05/16 09/06/16 18:59 06:59 Intake Total 820 Output Total 565 Balance 255 - Medications Medications: Current Medications Acetaminophen (Tylenol 650mg/20.3ml Solution Ud) 650 mg PO Q6H PRN PRN Reason: temp.100.4&above;mild pain 1-3 Last Admin: 08/25/16 00:45 Dose: 650 mg Albuterol/Ipratropium (Duoneb 3 Mg/0.5 Mg (3 Ml) Ud) 3 ml INH RQ6 [facility] Last Admin: 09/05/16 19:10 Dose: 3 ml Digoxin (Lanoxin) 0.25 mg PO DAILY@1800 [facility] Last Admin: 09/05/16 18:10 Dose: Not Given Furosemide (Lasix) 20 mg PO DAILY [facility] Last Admin: 09/05/16 09:36 Dose: 20 mg Heparin Sodium (Porcine) (Heparin) 5,000 units SC Q12 [facility] Last Admin: 09/05/16 09:35 Dose: 5,000 units Tigecycline 50 mg/ Sodium (Chloride) 100 mls @ 100 mls/hr IVPB Q12H [facility] Last Admin: 09/05/16 12:26 Dose: 100 mls/hr Fluconazole (Diflucan Iv 200 Mg/100 Ml Ns) 100 mls @ 100 mls/hr IVPB DAILY [facility] Last Admin: 09/05/16 09:34 Dose: 100 mls/hr Lisinopril (Zestril) 5 mg PO DAILY [facility] Last Admin: 09/05/16 09:35 Dose: 5 mg Metoprolol Tartrate (Lopressor) 25 mg PO BID [facility] Last Admin: 09/05/16 18:11 Dose: Not Given Pantoprazole Sodium (Protonix Susp) 40 mg PO 0600 [facility] Last Admin: 09/05/16 06:02 Dose: 40 mg - Labs Labs: 09/05/16 06:22 09/05/16 06:22 PT 10.6 SECONDS (9.7-12.2) 08/21/16 06:11 INR 1.0 08/21/16 06:11 APTT 29 SECONDS (21-34) 08/21/16 06:11 - Constitutional Appears: Cachectic, Chronically Ill - Head Exam Head Exam: NORMAL INSPECTION - Eye Exam Pupil Exam: NORMAL ACCOMODATION - ENT Exam ENT Exam: Normal Exam - Respiratory Exam Additional comments: Rhonchi heard at both lung [place]. - Cardiovascular Exam Cardiovascular Exam: REGULAR RHYTHM - GI/Abdominal Exam GI & Abdominal Exam: Soft, Normal Bowel Sounds - Rectal Exam Rectal Exam: Deferred - Extremities Exam Additional comments: Tender both hips. External ratation of the right leg. No edema. - Back Exam Back Exam: NORMAL INSPECTION - Neurological Exam Neurological Exam: Alert, Awake - Psychiatric Exam Psychiatric exam: Anxious - Skin Skin Exam: Abrasion Assessment and Plan (1) Closed fracture of greater trochanter of left femur Status: Acute (2) Dehydration Status: Resolved (3) Sepsis Status: Resolved (4) Fall Status: Acute (5) Arrhythmia Status: Resolved (6) Contusion of head Status: Acute (7) Garden grade IV closed subcapital fracture of proximal end of right femur Status: Acute (8) CHF exacerbation Status: Resolved (9) Acute respiratory failure Assessment & Plan: To continue ventilator support and pulmonary toilet. Status: Acute (10) Pleural effusion, right Status: Resolved (11) Right middle lobe pneumonia Assessment & Plan: Continue IV antibiotic as per Dr Stanley. Status: Acute (12) VRE (vancomycin resistant enterococcus) culture positive Status: Acute
[2016-09-06] MEDS: Albuterol-Ipratrop 3 mg / 0.5 (3 ml) UD INH SCH ×4 (02:36→19:21)
[2016-09-06] MEDS: Pantoprazole 40 mg Susp UD PO SCH (05:34)
[2016-09-06 05:53] LABS: ARTERIAL BLOOD GAS HCO3 33.1 mmol/L (21-28); ARTERIAL BLOOD GAS HEMOGLOBIN 10.2 g/dL (11.7-17.4); ARTERIAL BLOOD GAS O2 SAT 91.8 % (95-98); ARTERIAL BLOOD GAS PCO2 45 mm/Hg (35-45); ARTERIAL BLOOD GAS PO2 50 mm/Hg (80-100); ARTERIAL BLOOD GAS TCO2 36.5 mmol/L (22-28)
[2016-09-06 06:56] LABS: BASO # 0.1 K/uL (0.0-0.2); EOS # 0.1 K/uL (0.0-0.7); EOS % 1.8 % (0.0-4.0); HEMOGLOBIN 9.7 g/dL (11.0-16.0); LYMPH # 0.6 K/uL (1.0-4.3); LYMPH % 7.3 % (20.0-40.0); MEAN CELL VOLUME 107.9 fL (81.0-99.0); MEAN CORPUSCULAR HEMOGLOBIN 34.7 pg (27.0-31.0); MEAN CORPUSCULAR HGB CONC 32.1 g/dL (33.0-37.0); MEAN PLATELET VOLUME 11.1 fL (7.2-11.7); MONO # 0.7 K/uL (0.0-0.8); MONO % 8.2 % (0.0-10.0); NEUT # 6.6 K/uL (1.8-7.0); NEUT % 81.7 % (50.0-75.0); PLATELET COUNT 249 K/uL (130-400); RBC 2.79 Mil/uL (3.80-5.20); RED CELL DISTRIBUTION WIDTH 16.1 % (11.5-14.5); WHITE BLOOD COUNT 8.1 K/uL (4.8-10.8)
[2016-09-06 07:07] LABS: ALBUMIN 2.1 g/dL (3.5-5.0)
[2016-09-06 07:10] LABS: ALB/GLOB RATIO 0.7 (1.0-2.1); ALT/SGPT 32 U/L (9-52); AST/SGOT 23 U/L (14-36); BLOOD UREA NITROGEN 34 mg/dL (7-17); GFR AFRICAN-AMERICAN > 60; GFR NON-AFRICAN AMERICAN > 60
[2016-09-06 07:11] LABS: CALCIUM 7.4 mg/dl (8.6-10.4); MAGNESIUM 1.9 mg/dL (1.6-2.3)
--- NOTE | 2016-09-06 08:17 | CP.CCUPN ---
CCU Subjective - Physician Review Events Since Last Encounter (Free Text): 09/06/16 08:15 Patient reintubated again. Currently on ventilator. FiO2 60%. Awake with the minimal sedation. But overall prognosis is very poor. On ventilator. Patient receiving full support at this time. DNR/DNI Subjective (Free Text): 08/24/16 17:45 Patient was intubated and placed on ventilator CCU Objective - Vital Signs / Intake & Output Vital Signs (Last 4 hours): Vital Signs Pulse Resp BP Pulse Ox 09/06/16 06:00 74 23 95 09/06/16 05:58 114/62 09/06/16 05:00 76 23 120/72 09/06/16 04:58 120/72 Intake and Output (Last 8hrs): Intake & Output 09/05/16 09/06/16 09/06/16 22:59 06:59 14:59 Intake Total 330 380 Output Total 445 420 Balance -115 -40 Intake: Intake, IV Amount 100 Right PICC 100 Tube Feeding 280 280 Other 50 Output: Urine 445 420 Urethral (Martinez) 445 420 Other: # Bowel Movements 0 0 - Physical Exam Narrative Physical Exam (Free Text): 09/06/16 08:16 Vital signs reviewed No neck vein distention noted Chest good air entry bilaterally, no wheezing or rales noted CVS regular heart sound, no murmur noted Abdomen soft, nontender. Extremities bilateral edema [employer] sedated Head: Positive for: Normocephalic, Ecchymosis, Other (Contusions over left side of face healing). Negative for: Atraumatic Pupils: Positive for: PERRL Extroacular Muscles: Positive for: EOMI Conjunctiva: Positive for: Normal. Negative for: Injected, Icteric Mouth: Positive for: Dry, Other (ET tube in place) Nose (External): Positive for: Other (NGT in place- tolerating feeds) Neck: Negative for: JVD, Bruit Respiratory/Chest: Positive for: Good Air Exchange, Decreased Breath Sounds ( bibasilar R > L), Other (vent sounds heard throughout). Negative for: Clear to Auscultation, Respiratory Distress, Accessory Muscle Use, Wheezes, Retracting, Rhonchi Cardiovascular: Positive for: Regular Rate and Rhythm, Normal S1, S2, Peripheal Pulses Present, Other (HR labile). Negative for: Murmurs, Irregular Rhythm Abdomen: Positive for: Normal Bowel Sounds. Negative for: Tenderness, Distention, Peritoneal Signs, Rebound, Guarding Upper Extremity: Positive for: Normal Inspection, NORMAL PULSES, Other (mittens in place b/l). Negative for: Edema Lower Extremity: Positive for: NORMAL PULSES, Deformity (right leg shortened and externally rotated ), Other (grimaces when b/l hips palpated; offloading boots and SCDs in place and secure). Negative for: Normal Inspection, Edema, Normal ROM Neurological: Positive for: Other (alert and responsive). Negative for: Speech Normal Skin: Positive for: Warm, Dry, Normal Color, Other (b/l ecchymosis on face noted ). Negative for: Rashes Psychiatric: Positive for: Alert (responds to name ) - Medications Active Medications: Active Medications Generic Name Dose Route Start Last Admin Trade Name Freq PRN Reason Stop Dose Admin Acetaminophen 650 mg 08/14/16 23:50 08/25/16 00:45 Tylenol 650mg/20.3ml Solution Ud PO 650 mg Q6H PRN Administration temp.100.4&above;mild pain 1-3 Albuterol/Ipratropium 3 ml 08/16/16 14:00 09/06/16 02:36 Duoneb 3 Mg/0.5 Mg (3 Ml) Ud INH 3 ml RQ6 [place] Administration Digoxin 0.25 mg 08/30/16 18:00 09/05/16 18:10 Lanoxin PO Not Given DAILY@1800 [place] Furosemide 20 mg 09/05/16 10:00 09/05/16 09:36 Lasix PO 20 mg DAILY [place] Administration Heparin Sodium (Porcine) 5,000 units 09/03/16 10:00 09/05/16 21:44 Heparin SC 5,000 units Q12 [place] Administration Tigecycline 50 mg/ Sodium 100 mls @ 100 mls/hr 09/01/16 12:00 09/05/16 23:35 Chloride IVPB 100 mls/hr Q12H [place] Administration Fluconazole 100 mls @ 100 mls/hr 09/03/16 11:00 09/05/16 09:34 Diflucan Iv 200 Mg/100 Ml Ns IVPB 100 mls/hr DAILY [place] Administration Lisinopril 5 mg 08/17/16 10:00 06/30/17 09:35 Zestril PO 5 mg DAILY [place] Administration Metoprolol Tartrate 25 mg 08/12/16 18:00 09/05/16 18:11 Lopressor PO Not Given BID [facility] Pantoprazole Sodium 40 mg 08/27/16 06:00 09/06/16 05:34 Protonix Susp PO 40 mg 0600 [place] Administration - Patient Studies Lab Studies: Lab Studies 09/06/16 09/06/16 09/06/16 Range/Units 06:46 06:46 03:25 WBC 8.1 (4.8-10.8) K/uL RBC 2.79 L (3.80-5.20) Mil/uL Hgb 9.7 L (11.0-16.0) g/dL Hct 30.1 L (34.0-47.0) % MCV 107.9 H (81.0-99.0) fL MCH 34.7 H (27.0-31.0) pg MCHC 32.1 L (33.0-37.0) g/dL RDW 16.1 H (11.5-14.5) % Plt Count 249 (130-400) K/uL MPV 11.1 (7.2-11.7) fL Neut % (Auto) 81.7 H (50.0-75.0) % Lymph % (Auto) 7.3 L (20.0-40.0) % Eddy % (Auto) 8.2 (0.0-10.0) % Eos % (Auto) 1.8 (0.0-4.0) % Baso % (Auto) 1.0 (0.0-2.0) % Neut # 6.6 (1.8-7.0) K/uL Lymph # 0.6 L (1.0-4.3) K/uL Eddy # 0.7 (0.0-0.8) K/uL Eos # 0.1 (0.0-0.7) K/uL Baso # 0.1 (0.0-0.2) K/uL Neutrophils % (Manual) (50-75) % Band Neutrophils % (0-2) % Lymphocytes % (Manual) (20-40) % Monocytes % (Manual) (0-10) % Eosinophils % (Manual) (0-4) % Platelet Estimate (NORMAL) Large Platelets Basophilic Stippling Anisocytosis (manual) Puncture Site Lb pCO2 45 (35-45) mm/Hg pO2 50 L (80-100) mm/Hg HCO3 33.1 H (21-28) mmol/L ABG pH 7.50 H (7.35-7.45) ABG Total CO2 36.5 H (22-28) mmol/L ABG O2 Saturation 91.8 L (95-98) % ABG Base Excess 10.7 H (-2.0-3.0) mmol/L ABG Hemoglobin 10.2 L (11.7-17.4) g/dL ABG Carboxyhemoglobin 1.6 H (0.5-1.5) % POC ABG HHb (Measured) 8.0 H (0.0-5.0) % ABG Methemoglobin 1.1 (0.0-3.0) % Seng Test Na A-a O2 Difference 322.0 mm/Hg Respiratory Index 6.4 Hgb O2 Saturation 89.3 L (95.0-98.0) % Mechanical Rate 12 FiO2 60.0 % Tidal Volume 360 PEEP 5 Sodium 134 (132-148) mmol/L Potassium 4.0 (3.6-5.2) mmol/L Chloride 97 L (98-107) mmol/L Carbon Dioxide 33 H (22-30) mmol/L Anion Gap 8 L (10-20) BUN 34 H (7-17) mg/dL Creatinine 0.5 L (0.7-1.2) MG/DL Est GFR ( Amer) > 60 Est GFR (Non-Af Amer) > 60 Random Glucose 87 (65-105) mg/dL Calcium 7.4 L (8.6-10.4) mg/dl Phosphorus 2.9 (2.5-4.5) mg/dL Magnesium 1.9 (1.6-2.3) mg/dL Total Bilirubin 0.5 (0.2-1.3) mg/dL AST 23 (14-36) U/L ALT 32 (9-52) U/L Alkaline Phosphatase 188 H (38-126) U/L Total Protein 5.3 L (6.3-8.3) g/dL Albumin 2.1 L (3.5-5.0) g/dL Globulin 3.1 (2.2-3.9) gm/dL Albumin/Globulin Ratio 0.7 L (1.0-2.1) 09/05/16 09/05/16 09/04/16 Range/Units 06:22 05:03 03:00 WBC (4.8-10.8) K/uL RBC (3.80-5.20) Mil/uL Hgb (11.0-16.0) g/dL Hct (34.0-47.0) % MCV (81.0-99.0) fL MCH (27.0-31.0) pg MCHC (33.0-37.0) g/dL RDW (11.5-14.5) % Plt Count (130-400) K/uL MPV (7.2-11.7) fL Neut % (Auto) (50.0-75.0) % Lymph % (Auto) (20.0-40.0) % Eddy % (Auto) (0.0-10.0) % Eos % (Auto) (0.0-4.0) % Baso % (Auto) (0.0-2.0) % Neut # (1.8-7.0) K/uL Lymph # (1.0-4.3) K/uL Eddy # (0.0-0.8) K/uL Eos # (0.0-0.7) K/uL Baso # (0.0-0.2) K/uL Neutrophils % (Manual) 75 (50-75) % Band Neutrophils % 7 H (0-2) % Lymphocytes % (Manual) 8 L (20-40) % Monocytes % (Manual) 8 (0-10) % Eosinophils % (Manual) 2 (0-4) % Platelet Estimate Normal (NORMAL) Large Platelets Present Basophilic Stippling Slight Anisocytosis (manual) Slight Puncture Site L brach L brach pCO2 (35-45) mm/Hg pO2 (80-100) mm/Hg HCO3 (21-28) mmol/L ABG pH (7.35-7.45) ABG Total CO2 (22-28) mmol/L ABG O2 Saturation (95-98) % ABG Base Excess (-2.0-3.0) mmol/L ABG Hemoglobin (11.7-17.4) g/dL ABG Carboxyhemoglobin (0.5-1.5) % POC ABG HHb (Measured) (0.0-5.0) % ABG Methemoglobin (0.0-3.0) % Seng Test A-a O2 Difference mm/Hg Respiratory Index Hgb O2 Saturation (95.0-98.0) % Mechanical Rate FiO2 % Tidal Volume PEEP Sodium (132-148) mmol/L Potassium (3.6-5.2) mmol/L Chloride (98-107) mmol/L Carbon Dioxide (22-30) mmol/L Anion Gap (10-20) BUN (7-17) mg/dL Creatinine (0.7-1.2) MG/DL Est GFR ( Amer) Est GFR (Non-Af Amer) Random Glucose (65-105) mg/dL Calcium (8.6-10.4) mg/dl Phosphorus (2.5-4.5) mg/dL Magnesium (1.6-2.3) mg/dL Total Bilirubin (0.2-1.3) mg/dL AST (14-36) U/L ALT (9-52) U/L Alkaline Phosphatase (38-126) U/L Total Protein (6.3-8.3) g/dL Albumin (3.5-5.0) g/dL Globulin (2.2-3.9) gm/dL Albumin/Globulin Ratio (1.0-2.1) Laboratory Results - last 24 hr 09/04/16 09/05/16 09/05/16 03:00 05:03 06:22 WBC RBC Hgb Hct MCV MCH MCHC RDW Plt Count MPV Neut % (Auto) Lymph % (Auto) Eddy % (Auto) Eos % (Auto) Baso % (Auto) Neut # Lymph # Eddy # Eos # Baso # Neutrophils % (Manual) 75 Band Neutrophils % 7 H Lymphocytes % (Manual) 8 L Monocytes % (Manual) 8 Eosinophils % (Manual) 2 Platelet Estimate Normal Large Platelets Present Basophilic Stippling Slight Anisocytosis (manual) Slight Puncture Site L brach L brach pCO2 pO2 HCO3 ABG pH ABG Total CO2 ABG O2 Saturation ABG Base Excess ABG Hemoglobin ABG Carboxyhemoglobin POC ABG HHb (Measured) ABG Methemoglobin Seng Test A-a O2 Difference Respiratory Index Hgb O2 Saturation Mechanical Rate FiO2 Tidal Volume PEEP Sodium Potassium Chloride Carbon Dioxide Anion Gap BUN Creatinine Est GFR ( Amer) Est GFR (Non-Af Amer) Random Glucose Calcium Phosphorus Magnesium Total Bilirubin AST ALT Alkaline Phosphatase Total Protein Albumin Globulin Albumin/Globulin Ratio 09/06/16 09/06/16 09/06/16 03:25 06:46 06:46 WBC 8.1 RBC 2.79 L Hgb 9.7 L Hct 30.1 L MCV 107.9 H MCH 34.7 H MCHC 32.1 L RDW 16.1 H Plt Count 249 MPV 11.1 Neut % (Auto) 81.7 H Lymph % (Auto) 7.3 L Eddy % (Auto) 8.2 Eos % (Auto) 1.8 Baso % (Auto) 1.0 Neut # 6.6 Lymph # 0.6 L Eddy # 0.7 Eos # 0.1 Baso # 0.1 Neutrophils % (Manual) Band Neutrophils % Lymphocytes % (Manual) Monocytes % (Manual) Eosinophils % (Manual) Platelet Estimate Large Platelets Basophilic Stippling Anisocytosis (manual) Puncture Site Lb pCO2 45 pO2 50 L HCO3 33.1 H ABG pH 7.50 H ABG Total CO2 36.5 H ABG O2 Saturation 91.8 L ABG Base Excess 10.7 H ABG Hemoglobin 10.2 L ABG Carboxyhemoglobin 1.6 H POC ABG HHb (Measured) 8.0 H ABG Methemoglobin 1.1 Seng Test Na A-a O2 Difference 322.0 Respiratory Index 6.4 Hgb O2 Saturation 89.3 L Mechanical Rate 12 FiO2 60.0 Tidal Volume 360 PEEP 5 Sodium 134 Potassium 4.0 Chloride 97 L Carbon Dioxide 33 H Anion Gap 8 L BUN 34 H Creatinine 0.5 L Est GFR ( Amer) > 60 Est GFR (Non-Af Amer) > 60 Random Glucose 87 Calcium 7.4 L Phosphorus 2.9 Magnesium 1.9 Total Bilirubin 0.5 AST 23 ALT 32 Alkaline Phosphatase 188 H Total Protein 5.3 L Albumin 2.1 L Globulin 3.1 Albumin/Globulin Ratio 0.7 L Assessment/Plan (1) Arrhythmia Assessment and plan: Acute on chronic respiratory failure, on ventilator. Possible hospital-acquired pneumonia, ventilator dependent pneumonia. On IV antibiotic. Prognosis very poor. Patient has a acute complications including pneumonia, possible sacral decubiti. High risk. DNR. Current Visit: Yes Status: Resolved (2) Closed fracture of greater trochanter of left femur Assessment and plan: 76-year-old female with history of osteoporosis, osteoarthritis, severe weakness and a recurrent fall, complicated with the bilateral hip fracture admitted to the hospital. Patient is currently having significant the weakness, and also associated pain secondary to the pain and fracture. Patient had a history of recurrent fall. Underlying neurological condition cannot be ruled out. She is at very high risk for DVT and pulmonary embolism. Currently on anticoagulation. Patient will need a definite treatment for the bilateral hip fracture. Awaiting cardiology clearance. Currently mobility is restricted because of the severe pain. pain control. We'll continue the current treatment and will follow the patient Patient surgical intervention pending at this time. Likely now have recurrent aspiration pneumonia, respiratory failure. On ventilator. Continue the supportive care. Patient is at high risk for mortality, continue the treatment X-ray of the chest showing evidence of worsening infiltrate on the right lung. Possible hospital-acquired pneumonia, ventilator acquired pneumonia. We will get a sputum culture. We'll start the patient on antibiotic. DVT and GI prophylaxis. I spoke to the patient's sister on the phone, explained, she wanted everything to be done. Overall prognosis very poor, patient has a high mortality given the complex medical problems. Current Visit: Yes Status: Acute (3) Contusion of head Current Visit: Yes Status: Acute (4) Fall Current Visit: Yes Status: Acute
[2016-09-06 08:58] LABS: ANISOCYTOSIS SLIGHT; BANDS 3 % (0-2); EOSINOPHIL 2 % (0-4); LYMPHOCYTE 9 % (20-40); MONOCYTE 4 % (0-10); NEUTROPHIL 82 % (50-75); PLATELET ESTIMATE NORMAL (NORMAL); TOTAL CELLS COUNTED 100
[2016-09-06 08:59] LABS: HYPOCHROMIC SLIGHT
[2016-09-06] MEDS: Fluconazole IV 200mg/100 ml NS 100 ML IVPB SCH (09:53)
--- NOTE | 2016-09-06 20:40 | CP.PCM.PN ---
Subjective - Date & Time of Evaluation Date of Evaluation: 09/06/16 Time of Evaluation: 20:37 - Subjective Subjective: Patient on respirator, awake, responding. Fio2 60% PEEP5. Afebrile BP 120/70 and HR 66regular. Objective - Vital Signs/Intake and Output Vital Signs (last 24 hours): Temp Pulse Resp BP Pulse Ox 98.7 F 78 18 113/53 L 89 L 09/06/16 08:00 09/06/16 09:00 09/06/16 09:00 09/06/16 09:53 09/06/16 08:58 Intake and Output: 09/06/16 09/07/16 18:59 06:59 Intake Total 105 Output Total 130 Balance -25 - Medications Medications: Current Medications Acetaminophen (Tylenol 650mg/20.3ml Solution Ud) 650 mg PO Q6H PRN PRN Reason: temp.100.4&above;mild pain 1-3 Last Admin: 08/25/16 00:45 Dose: 650 mg Albuterol/Ipratropium (Duoneb 3 Mg/0.5 Mg (3 Ml) Ud) 3 ml INH RQ6 [facility] Last Admin: 09/06/16 13:55 Dose: 3 ml Digoxin (Lanoxin) 0.25 mg PO DAILY@1800 [facility] Last Admin: 09/05/16 18:10 Dose: Not Given Famotidine (Pepcid) 20 mg PO DAILY [facility] Last Admin: 09/06/16 09:53 Dose: 20 mg Furosemide (Lasix) 20 mg PO DAILY [facility] Last Admin: 09/06/16 09:53 Dose: 20 mg Heparin Sodium (Porcine) (Heparin) 5,000 units SC Q12 [facility] Last Admin: 09/06/16 09:52 Dose: 5,000 units Tigecycline 50 mg/ Sodium (Chloride) 100 mls @ 100 mls/hr IVPB Q12H [facility] Last Admin: 09/05/16 23:35 Dose: 100 mls/hr Fluconazole (Diflucan Iv 200 Mg/100 Ml Ns) 100 mls @ 100 mls/hr IVPB DAILY [facility] Last Admin: 09/06/16 09:53 Dose: 100 mls/hr Lisinopril (Zestril) 5 mg PO DAILY [facility] Last Admin: 09/06/16 09:53 Dose: 5 mg Metoprolol Tartrate (Lopressor) 25 mg PO BID [place] Last Admin: 09/06/16 09:52 Dose: 25 mg - Labs Labs: 09/06/16 06:46 09/06/16 06:46 PT 10.6 SECONDS (9.7-12.2) 08/21/16 06:11 INR 1.0 08/21/16 06:11 APTT 29 SECONDS (21-34) 08/21/16 06:11 - Constitutional Appears: Chronically Ill - Head Exam Head Exam: NORMAL INSPECTION - Eye Exam Eye Exam: Normal appearance - ENT Exam ENT Exam: Normal Exam - Neck Exam Neck Exam: Normal Inspection - Respiratory Exam Additional comments: Rhonchi heard bilaterally. - Cardiovascular Exam Cardiovascular Exam: REGULAR RHYTHM - GI/Abdominal Exam GI & Abdominal Exam: Soft, Normal Bowel Sounds - Rectal Exam Rectal Exam: Deferred - Extremities Exam Additional comments: No pedal edema. Tender both hips. External rotation of the right leg. - Back Exam Back Exam: NORMAL INSPECTION - Neurological Exam Neurological Exam: Awake - Psychiatric Exam Psychiatric exam: Anxious - Skin Skin Exam: Abrasion Assessment and Plan (1) Closed fracture of greater trochanter of left femur Status: Acute (2) Dehydration Status: Resolved (3) Sepsis Status: Resolved (4) Fall Status: Acute (5) Arrhythmia Status: Resolved (6) Contusion of head Status: Acute (7) Garden grade IV closed subcapital fracture of proximal end of right femur Status: Acute (8) CHF exacerbation Status: Resolved (9) Acute respiratory failure Assessment & Plan: To continue vent support and pulmonary toilet. Status: Acute (10) Pleural effusion, right Status: Resolved (11) Right middle lobe pneumonia Assessment & Plan: To continue IV antibiotics as per Dr Stanley. Status: Acute (12) VRE (vancomycin resistant enterococcus) culture positive Status: Acute
[2016-09-07] MEDS: Albuterol-Ipratrop 3 mg / 0.5 (3 ml) UD INH SCH ×4 (01:19→19:38)
[2016-09-07 06:02] LABS: ARTERIAL BLOOD GAS HCO3 31.5 mmol/L (21-28); ARTERIAL BLOOD GAS HEMOGLOBIN 9.6 g/dL (11.7-17.4); ARTERIAL BLOOD GAS O2 SAT 97.2 % (95-98); ARTERIAL BLOOD GAS PCO2 29 mm/Hg (35-45); ARTERIAL BLOOD GAS PH 7.62 (7.35-7.45); ARTERIAL BLOOD GAS PO2 60 mm/Hg (80-100); ARTERIAL BLOOD GAS TCO2 30.7 mmol/L (22-28)
[2016-09-07 06:28] LABS: BASO # 0.1 K/uL (0.0-0.2); BASO % 1.3 % (0.0-2.0); EOS # 0.2 K/uL (0.0-0.7); EOS % 2.6 % (0.0-4.0); HEMOGLOBIN 9.7 g/dL (11.0-16.0); LYMPH # 0.7 K/uL (1.0-4.3); LYMPH % 9.9 % (20.0-40.0); MEAN CELL VOLUME 106.8 fL (81.0-99.0); MEAN CORPUSCULAR HEMOGLOBIN 35.1 pg (27.0-31.0); MEAN CORPUSCULAR HGB CONC 32.9 g/dL (33.0-37.0); MONO # 0.6 K/uL (0.0-0.8); MONO % 8.4 % (0.0-10.0); NEUT # 5.8 K/uL (1.8-7.0); NEUT % 77.8 % (50.0-75.0); PLATELET COUNT 235 K/uL (130-400); RBC 2.76 Mil/uL (3.80-5.20); RED CELL DISTRIBUTION WIDTH 16.4 % (11.5-14.5); WHITE BLOOD COUNT 7.5 K/uL (4.8-10.8)
[2016-09-07 06:55] LABS: ALBUMIN 2.1 g/dL (3.5-5.0)
[2016-09-07 06:57] LABS: GFR AFRICAN-AMERICAN > 60; GFR NON-AFRICAN AMERICAN > 60
[2016-09-07 06:58] LABS: ALB/GLOB RATIO 0.7 (1.0-2.1); ALT/SGPT 27 U/L (9-52); AST/SGOT 21 U/L (14-36); BLOOD UREA NITROGEN 32 mg/dL (7-17); CALCIUM 7.1 mg/dl (8.6-10.4); MAGNESIUM 1.9 mg/dL (1.6-2.3)
--- NOTE | 2016-09-07 08:27 | CP.CCUPN ---
CCU Subjective - Physician Review Events Since Last Encounter (Free Text): 09/07/16 08:26 Patient is still on ventilator. Awake and responding. But the mild tachypnea noted. Patient denies any pain at this time. Tolerating the feeding FiO2 60%. Subjective (Free Text): 08/24/16 17:45 Patient was intubated and placed on ventilator CCU Objective - Vital Signs / Intake & Output Vital Signs (Last 4 hours): Vital Signs Pulse Resp BP Pulse Ox 09/07/16 07:00 70 22 09/07/16 06:58 120/68 09/07/16 06:00 59 L 19 09/07/16 05:58 134/65 09/07/16 05:00 64 19 100 09/07/16 04:58 117/52 L Intake and Output (Last 8hrs): Intake & Output 09/06/16 09/07/16 09/07/16 22:59 06:59 14:59 Intake Total 70 380 35 Output Total 240 215 75 Balance -170 165 -40 Intake: Intake, IV Amount 100 Right PICC 100 Tube Feeding 70 280 35 Output: Urine 240 215 75 Urethral (Martinez) 240 215 75 - Physical Exam Narrative Physical Exam (Free Text): 09/07/16 08:26 Vital signs reviewed No neck vein distention noted Chest good air entry bilaterally, no wheezing or rales noted CVS regular heart sound, no murmur noted Abdomen soft, nontender. 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 Negative for: Atraumatic Pupils: Positive for: PERRL Extroacular Muscles: Positive for: EOMI Conjunctiva: Positive for: Normal. Negative for: Injected, Icteric Mouth: Positive for: Dry, Other (ET tube in place) Nose (External): Positive for: Other (NGT in place- tolerating feeds) Neck: Negative for: JVD, Bruit Respiratory/Chest: Positive for: Good Air Exchange, Decreased Breath Sounds ( bibasilar R > L), Other (vent sounds heard throughout). Negative for: Clear to Auscultation, Respiratory Distress, Accessory Muscle Use, Wheezes, Retracting, Rhonchi Cardiovascular: Positive for: Regular Rate and Rhythm, Normal S1, S2, Peripheal Pulses Present, Other (HR labile). Negative for: Murmurs, Irregular Rhythm Abdomen: Positive for: Normal Bowel Sounds. Negative for: Tenderness, Distention, Peritoneal Signs, Rebound, Guarding Upper Extremity: Positive for: Normal Inspection, NORMAL PULSES, Other (mittens in place b/l). Negative for: Edema Lower Extremity: Positive for: NORMAL PULSES, Deformity (right leg shortened and externally rotated ), Other (grimaces when b/l hips palpated; offloading boots and SCDs in place and secure). Negative for: Normal Inspection, Edema, Normal ROM Neurological: Positive for: Other (alert and responsive). Negative for: Speech Normal Skin: Positive for: Warm, Dry, Normal Color, Other (b/l ecchymosis on face noted ). Negative for: Rashes Psychiatric: Positive for: Alert (responds to name ) - Medications Active Medications: Active Medications Generic Name Dose Route Start Last Admin Trade Name Freq PRN Reason Stop Dose Admin Acetaminophen 650 mg 08/14/16 23:50 08/25/16 00:45 Tylenol 650mg/20.3ml Solution Ud PO 650 mg Q6H PRN Administration temp.100.4&above;mild pain 1-3 Albuterol/Ipratropium 3 ml 08/16/16 14:00 09/07/16 01:19 Duoneb 3 Mg/0.5 Mg (3 Ml) Ud INH 3 ml RQ6 [place] Administration Digoxin 0.25 mg 08/30/16 18:00 09/05/16 18:10 Lanoxin PO Not Given DAILY@1800 [facility] Famotidine 20 mg 09/06/16 10:09/06/16 09:53 Pepcid PO 20 mg DAILY [place] Administration Furosemide 20 mg 09/05/16 10:00 09/06/16 09:53 Lasix PO 20 mg DAILY [place] Administration Heparin Sodium (Porcine) 5,000 units 09/03/16 10:00 09/06/16 22:18 Heparin SC 5,000 units Q12 [facility] Administration Tigecycline 50 mg/ Sodium 100 mls @ 100 mls/hr 09/01/16 12:00 09/07/16 00:31 Chloride IVPB 100 mls/hr Q12H [place] Administration Fluconazole 100 mls @ 100 mls/hr 09/03/16 11:00 09/06/16 09:53 Diflucan Iv 200 Mg/100 Ml Ns IVPB 100 mls/hr DAILY [place] Administration Lisinopril 5 mg 08/17/16 10:00 09/06/16 09:53 Zestril PO 5 mg DAILY [place] Administration Metoprolol Tartrate 25 mg 08/12/16 18:00 09/06/16 09:52 Lopressor PO 25 mg BID [place] Administration - Patient Studies Lab Studies: Lab Studies 09/07/16 09/07/16 09/07/16 Range/Units 06:15 06:15 05:20 WBC 7.5 (4.8-10.8) K/uL RBC 2.76 L (3.80-5.20) Mil/uL Hgb 9.7 L (11.0-16.0) g/dL Hct 29.4 L (34.0-47.0) % MCV 106.8 H (81.0-99.0) fL MCH 35.1 H (27.0-31.0) pg MCHC 32.9 L (33.0-37.0) g/dL RDW 16.4 H (11.5-14.5) % Plt Count 235 (130-400) K/uL MPV 11.0 (7.2-11.7) fL Neut % (Auto) 77.8 H (50.0-75.0) % Lymph % (Auto) 9.9 L (20.0-40.0) % [facility] % (Auto) 8.4 (0.0-10.0) % Eos % (Auto) 2.6 (0.0-4.0) % Baso % (Auto) 1.3 (0.0-2.0) % Neut # 5.8 (1.8-7.0) K/uL Lymph # 0.7 L (1.0-4.3) K/uL [facility] # 0.6 (0.0-0.8) K/uL Eos # 0.2 (0.0-0.7) K/uL Baso # 0.1 (0.0-0.2) K/uL Neutrophils % (Manual) (50-75) % Band Neutrophils % (0-2) % Lymphocytes % (Manual) (20-40) % Monocytes % (Manual) (0-10) % Eosinophils % (Manual) (0-4) % Platelet Estimate (NORMAL) Hypochromasia (manual) Anisocytosis (manual) Macrocytosis (manual) Puncture Site Lb pCO2 29 L (35-45) mm/Hg pO2 60 L (80-100) mm/Hg HCO3 31.5 H (21-28) mmol/L ABG pH 7.62 H* (7.35-7.45) ABG Total CO2 30.7 H (22-28) mmol/L ABG O2 Saturation 97.2 (95-98) % ABG Base Excess 8.4 H (-2.0-3.0) mmol/L ABG Hemoglobin 9.6 L (11.7-17.4) g/dL ABG Carboxyhemoglobin 1.6 H (0.5-1.5) % POC ABG HHb (Measured) 2.7 (0.0-5.0) % ABG Methemoglobin 0.9 (0.0-3.0) % Seng Test Na A-a O2 Difference 332.0 mm/Hg Respiratory Index 5.5 Hgb O2 Saturation 94.8 L (95.0-98.0) % Mechanical Rate 12 FiO2 60.0 % Tidal Volume 360 PEEP 5 Crit Value Called To Na rnccu Crit Value Called By Brennan galindo/rt Crit Value Read Back Y Blood Gas Notified Time 605 Sodium 134 (132-148) mmol/L Potassium 3.8 (3.6-5.2) mmol/L Chloride 95 L (98-107) mmol/L Carbon Dioxide 33 H (22-30) mmol/L Anion Gap 10 (10-20) BUN 32 H (7-17) mg/dL Creatinine 0.4 L (0.7-1.2) MG/DL Est GFR ( Amer) > 60 Est GFR (Non-Af Amer) > 60 Random Glucose 84 (65-105) mg/dL Calcium 7.1 L (8.6-10.4) mg/dl Phosphorus 2.7 (2.5-4.5) mg/dL Magnesium 1.9 (1.6-2.3) mg/dL Total Bilirubin 0.6 (0.2-1.3) mg/dL AST 21 (14-36) U/L ALT 27 (9-52) U/L Alkaline Phosphatase 187 H (38-126) U/L Total Protein 5.2 L (6.3-8.3) g/dL Albumin 2.1 L (3.5-5.0) g/dL Globulin 3.0 (2.2-3.9) gm/dL Albumin/Globulin Ratio 0.7 L (1.0-2.1) 09/06/16 Range/Units 06:46 WBC (4.8-10.8) K/uL RBC (3.80-5.20) Mil/uL Hgb (11.0-16.0) g/dL Hct (34.0-47.0) % MCV (81.0-99.0) fL MCH (27.0-31.0) pg MCHC (33.0-37.0) g/dL RDW (11.5-14.5) % Plt Count (130-400) K/uL MPV (7.2-11.7) fL Neut % (Auto) (50.0-75.0) % Lymph % (Auto) (20.0-40.0) % [facility] % (Auto) (0.0-10.0) % Eos % (Auto) (0.0-4.0) % Baso % (Auto) (0.0-2.0) % Neut # (1.8-7.0) K/uL Lymph # (1.0-4.3) K/uL [facility] # (0.0-0.8) K/uL Eos # (0.0-0.7) K/uL Baso # (0.0-0.2) K/uL Neutrophils % (Manual) 82 H (50-75) % Band Neutrophils % 3 H (0-2) % Lymphocytes % (Manual) 9 L (20-40) % Monocytes % (Manual) 4 (0-10) % Eosinophils % (Manual) 2 (0-4) % Platelet Estimate Normal (NORMAL) Hypochromasia (manual) Slight Anisocytosis (manual) Slight Macrocytosis (manual) Slight Puncture Site pCO2 (35-45) mm/Hg pO2 (80-100) mm/Hg HCO3 (21-28) mmol/L ABG pH (7.35-7.45) ABG Total CO2 (22-28) mmol/L ABG O2 Saturation (95-98) % ABG Base Excess (-2.0-3.0) mmol/L ABG Hemoglobin (11.7-17.4) g/dL ABG Carboxyhemoglobin (0.5-1.5) % POC ABG HHb (Measured) (0.0-5.0) % ABG Methemoglobin (0.0-3.0) % Seng Test A-a O2 Difference mm/Hg Respiratory Index Hgb O2 Saturation (95.0-98.0) % Mechanical Rate FiO2 % Tidal Volume PEEP Crit Value Called To Crit Value Called By Crit Value Read Back Blood Gas Notified Time Sodium (132-148) mmol/L Potassium (3.6-5.2) mmol/L Chloride (98-107) mmol/L Carbon Dioxide (22-30) mmol/L Anion Gap (10-20) BUN (7-17) mg/dL Creatinine (0.7-1.2) MG/DL Est GFR ( Amer) Est GFR (Non-Af Amer) Random Glucose (65-105) mg/dL Calcium (8.6-10.4) mg/dl Phosphorus (2.5-4.5) mg/dL Magnesium (1.6-2.3) mg/dL Total Bilirubin (0.2-1.3) mg/dL AST (14-36) U/L ALT (9-52) U/L Alkaline Phosphatase (38-126) U/L Total Protein (6.3-8.3) g/dL Albumin (3.5-5.0) g/dL Globulin (2.2-3.9) gm/dL Albumin/Globulin Ratio (1.0-2.1) Laboratory Results - last 24 hr 09/06/16 09/07/16 09/07/16 06:46 05:20 06:15 WBC 7.5 RBC 2.76 L Hgb 9.7 L Hct 29.4 L MCV 106.8 H MCH 35.1 H MCHC 32.9 L RDW 16.4 H Plt Count 235 MPV 11.0 Neut % (Auto) 77.8 H Lymph % (Auto) 9.9 L [facility] % (Auto) 8.4 Eos % (Auto) 2.6 Baso % (Auto) 1.3 Neut # 5.8 Lymph # 0.7 L [facility] # 0.6 Eos # 0.2 Baso # 0.1 Neutrophils % (Manual) 82 H Band Neutrophils % 3 H Lymphocytes % (Manual) 9 L Monocytes % (Manual) 4 Eosinophils % (Manual) 2 Platelet Estimate Normal Hypochromasia (manual) Slight Anisocytosis (manual) Slight Macrocytosis (manual) Slight Puncture Site Lb pCO2 29 L pO2 60 L HCO3 31.5 H ABG pH 7.62 H* ABG Total CO2 30.7 H ABG O2 Saturation 97.2 ABG Base Excess 8.4 H ABG Hemoglobin 9.6 L ABG Carboxyhemoglobin 1.6 H POC ABG HHb (Measured) 2.7 ABG Methemoglobin 0.9 Seng Test Na A-a O2 Difference 332.0 Respiratory Index 5.5 Hgb O2 Saturation 94.8 L Mechanical Rate 12 FiO2 60.0 Tidal Volume 360 PEEP 5 Crit [facility] Crit Value Called By Brennan galindo/rt Crit Value Read Back Y Blood Gas Notified Time 605 Sodium Potassium Chloride Carbon Dioxide Anion Gap BUN Creatinine Est GFR ( Amer) Est GFR (Non-Af Amer) Random Glucose Calcium Phosphorus Magnesium Total Bilirubin AST ALT Alkaline Phosphatase Total Protein Albumin Globulin Albumin/Globulin Ratio 09/07/16 06:15 WBC RBC Hgb Hct MCV MCH MCHC RDW Plt Count MPV Neut % (Auto) Lymph % (Auto) [facility] % (Auto) Eos % (Auto) Baso % (Auto) Neut # Lymph # [facility] # Eos # Baso # Neutrophils % (Manual) Band Neutrophils % Lymphocytes % (Manual) Monocytes % (Manual) Eosinophils % (Manual) Platelet Estimate Hypochromasia (manual) Anisocytosis (manual) Macrocytosis (manual) Puncture Site pCO2 pO2 HCO3 ABG pH ABG Total CO2 ABG O2 Saturation ABG Base Excess ABG Hemoglobin ABG Carboxyhemoglobin POC ABG HHb (Measured) ABG Methemoglobin Seng Test A-a O2 Difference Respiratory Index Hgb O2 Saturation Mechanical Rate FiO2 Tidal Volume PEEP Crit Value Called To Crit Value Called By Crit Value Read Back Blood Gas Notified Time Sodium 134 Potassium 3.8 Chloride 95 L Carbon Dioxide 33 H Anion Gap 10 BUN 32 H Creatinine 0.4 L Est GFR ( Amer) > 60 Est GFR (Non-Af Amer) > 60 Random Glucose 84 Calcium 7.1 L Phosphorus 2.7 Magnesium 1.9 Total Bilirubin 0.6 AST 21 ALT 27 Alkaline Phosphatase 187 H Total Protein 5.2 L Albumin 2.1 L Globulin 3.0 Albumin/Globulin Ratio 0.7 L Assessment/Plan (1) Arrhythmia Assessment and plan: Acute on chronic respiratory failure, on ventilator. Possible hospital-acquired pneumonia, ventilator dependent pneumonia. On IV antibiotic. Prognosis very poor. Patient has a acute complications including pneumonia, possible sacral decubiti. High risk. DNR. Still on ventilator. We'll try CPAP trial today. Current Visit: Yes Status: Resolved (2) Closed fracture of greater trochanter of left femur Assessment and plan: 76-year-old female with history of osteoporosis, osteoarthritis, severe weakness and a recurrent fall, complicated with the bilateral hip fracture admitted to the hospital. Patient is currently having significant the weakness, and also associated pain secondary to the pain and fracture. Patient had a history of recurrent fall. Underlying neurological condition cannot be ruled out. She is at very high risk for DVT and pulmonary embolism. Currently on anticoagulation. Patient will need a definite treatment for the bilateral hip fracture. Awaiting cardiology clearance. Currently mobility is restricted because of the severe pain. pain control. We'll continue the current treatment and will follow the patient Patient surgical intervention pending at this time. Likely now have recurrent aspiration pneumonia, respiratory failure. On ventilator. Continue the supportive care. Patient is at high risk for mortality, continue the treatment X-ray of the chest showing evidence of worsening infiltrate on the right lung. Possible hospital-acquired pneumonia, ventilator acquired pneumonia. We will get a sputum culture. We'll start the patient on antibiotic. DVT and GI prophylaxis. I spoke to the patient's sister on the phone, explained, she wanted everything to be done. Overall prognosis very poor, patient has a high mortality given the complex medical problems. Current Visit: Yes Status: Acute (3) Contusion of head Current Visit: Yes Status: Acute (4) Fall Current Visit: Yes Status: Acute
[2016-09-07 08:48] LABS: ANISOCYTOSIS SLIGHT; EOSINOPHIL 3 % (0-4); LYMPHOCYTE 2 % (20-40); MONOCYTE 4 % (0-10); NEUTROPHIL 91 % (50-75); PLATELET ESTIMATE NORMAL (NORMAL); TOTAL CELLS COUNTED 100
[2016-09-07 08:49] LABS: HYPOCHROMIC SLIGHT
[2016-09-07] MEDS: Fluconazole IV 200mg/100 ml NS 100 ML IVPB SCH (09:46)
--- NOTE | 2016-09-07 10:58 | RAD ---
PROCEDURE: CHEST RADIOGRAPH, 1 VIEW HISTORY: on vent COMPARISON: 09/05/2016 FINDINGS: The endotracheal tube is high in position and terminates at the level of the clavicles. The right PICC line terminates in the SVC. LUNGS: The lungs are hyperinflated and there is peribronchial thickening with chronic changes in both lungs. There is a persistent left retrocardiac opacity. PLEURA: No change in left pleural effusion. No pneumothorax. CARDIOVASCULAR: Normal. OSSEOUS STRUCTURES: Redemonstration of nondisplaced fracture in the left lateral 7th rib. VISUALIZED UPPER ABDOMEN: Normal. OTHER FINDINGS: None. IMPRESSION: Stable position of the endotracheal tube which is high and terminates at the level of the clavicles. COPD. Persistent left lower lobe pneumonia/ atelectasis and pleural effusion. Redemonstration of nondisplaced fracture in the left lateral 7th rib.
[2016-09-07] MEDS: Digoxin 250 mcg (0.25 mg) Tab PO SCH (17:19)
[2016-09-08] MEDS: Albuterol-Ipratrop 3 mg / 0.5 (3 ml) UD INH SCH ×4 (02:30→20:12)
[2016-09-08 06:27] LABS: ABG ALLEN TEST POS; ARTERIAL BLOOD GAS HCO3 33.4 mmol/L (21-28); ARTERIAL BLOOD GAS HEMOGLOBIN 9.8 g/dL (11.7-17.4); ARTERIAL BLOOD GAS O2 SAT 99.6 % (95-98); ARTERIAL BLOOD GAS PCO2 45 mm/Hg (35-45); ARTERIAL BLOOD GAS PO2 171 mm/Hg (80-100); ARTERIAL BLOOD GAS TCO2 36.5 mmol/L (22-28)
[2016-09-08 06:56] LABS: BASO # 0.1 K/uL (0.0-0.2); BASO % 1.4 % (0.0-2.0); EOS # 0.1 K/uL (0.0-0.7); EOS % 1.6 % (0.0-4.0); GFR AFRICAN-AMERICAN > 60; GFR NON-AFRICAN AMERICAN > 60; HEMOGLOBIN 9.7 g/dL (11.0-16.0); LYMPH # 0.7 K/uL (1.0-4.3); LYMPH % 9.5 % (20.0-40.0); MEAN CELL VOLUME 106.2 fL (81.0-99.0); MEAN CORPUSCULAR HEMOGLOBIN 34.4 pg (27.0-31.0); MEAN CORPUSCULAR HGB CONC 32.3 g/dL (33.0-37.0); MEAN PLATELET VOLUME 11.1 fL (7.2-11.7); MONO # 0.8 K/uL (0.0-0.8); MONO % 10.4 % (0.0-10.0); NEUT # 5.6 K/uL (1.8-7.0); NEUT % 77.1 % (50.0-75.0); PLATELET COUNT 222 K/uL (130-400); RBC 2.83 Mil/uL (3.80-5.20); RED CELL DISTRIBUTION WIDTH 15.8 % (11.5-14.5); WHITE BLOOD COUNT 7.2 K/uL (4.8-10.8)
[2016-09-08 06:57] LABS: ALB/GLOB RATIO 0.7 (1.0-2.1); ALT/SGPT 22 U/L (9-52); AST/SGOT 24 U/L (14-36); BLOOD UREA NITROGEN 34 mg/dL (7-17); CALCIUM 7.2 mg/dl (8.6-10.4); MAGNESIUM 1.9 mg/dL (1.6-2.3)
[2016-09-08 08:08] LABS: LYMPHOCYTE 7 % (20-40); MONOCYTE 4 % (0-10); NEUTROPHIL 89 % (50-75); PLATELET ESTIMATE NORMAL (NORMAL); TOTAL CELLS COUNTED 100
[2016-09-08 08:09] LABS: ANISOCYTOSIS SLIGHT; HYPOCHROMIC SLIGHT
[2016-09-08] MEDS: Fluconazole IV 200mg/100 ml NS 100 ML IVPB SCH (09:36)
--- NOTE | 2016-09-08 09:54 | CP.PCM.PN ---
Subjective - Date & Time of Evaluation Date of Evaluation: 09/08/16 Time of Evaluation: 09:54 - Subjective Subjective: Patient intubated, sleeping. Objective - Vital Signs/Intake and Output Vital Signs (last 24 hours): Temp Pulse Resp BP Pulse Ox 98.6 F 56 L 12 128/75 100 09/08/16 04:00 09/08/16 07:00 09/08/16 07:00 09/08/16 09:44 09/08/16 07:00 Intake and Output: 09/08/16 09/08/16 06:59 18:59 Intake Total 670 35 Output Total 455 40 Balance 215 -5 - Medications Medications: Current Medications Acetaminophen (Tylenol 650mg/20.3ml Solution Ud) 650 mg PO Q6H PRN PRN Reason: temp.100.4&above;mild pain 1-3 Last Admin: 08/25/16 00:45 Dose: 650 mg Albuterol/Ipratropium (Duoneb 3 Mg/0.5 Mg (3 Ml) Ud) 3 ml INH RQ6 [facility] Last Admin: 09/08/16 07:46 Dose: 3 ml Digoxin (Lanoxin) 0.25 mg PO DAILY@1800 [facility] Last Admin: 09/07/16 17:19 Dose: 0.25 mg Famotidine (Pepcid) 20 mg PO DAILY [facility] Last Admin: 09/08/16 09:43 Dose: 20 mg Furosemide (Lasix) 20 mg PO DAILY [facility] Last Admin: 09/08/16 09:43 Dose: 20 mg Heparin Sodium (Porcine) (Heparin) 5,000 units SC Q12 [facility] Last Admin: 09/08/16 09:45 Dose: 5,000 units Tigecycline 50 mg/ Sodium (Chloride) 100 mls @ 100 mls/hr IVPB Q12H [facility] Last Admin: 09/08/16 00:00 Dose: 100 mls/hr Fluconazole (Diflucan Iv 200 Mg/100 Ml Ns) 100 mls @ 100 mls/hr IVPB DAILY [facility] Last Admin: 09/08/16 09:36 Dose: 100 mls/hr Lisinopril (Zestril) 5 mg PO DAILY [facility] Last Admin: 09/08/16 09:44 Dose: 5 mg Metoprolol Tartrate (Lopressor) 25 mg PO BID [facility] Last Admin: 09/08/16 09:44 Dose: 25 mg Morphine Sulfate (Morphine) 2 mg IVP Q6 PRN PRN Reason: Pain, moderate (4-7) - Labs Labs: 09/08/16 06:28 09/08/16 06:28 PT 10.6 SECONDS (9.7-12.2) 08/21/16 06:11 INR 1.0 08/21/16 06:11 APTT 29 SECONDS (21-34) 08/21/16 06:11 - Extremities Exam Additional comments: +LE edema venodynes and heel protectors intact Assessment and Plan (1) Garden grade IV closed subcapital fracture of proximal end of right femur Assessment & Plan: awaiting medical optimization for OR if aggressive efforts including fixation of hip fracture, goal of ambulation and pain control are desired by patient and family d/w Dr. Elena, agrees with above Status: Acute (2) Degenerative joint disease of right hip Status: Chronic (3) Closed fracture of greater trochanter of left femur Assessment & Plan: non operative Status: Acute
--- NOTE | 2016-09-08 10:31 | RAD ---
Chest x-ray single frontal view History: Check endotracheal tube. Comparison: 09/07/2016 Findings: Endotracheal tube extending into the mid thoracic trachea. NG tube extending into the stomach. Right PICC line with tip extending to the cavoatrial junction. Biapical pleural thickening with upper lobe granulomatous changes and scattered nodularity. Hyperinflation suggestive for COPD and or emphysematous changes. Diffuse increased interstitial lung markings. More confluent consolidative changes in the right infrahilar region as well as the right lung base and left mid to lower lung zone. More confluent consolidative changes at the lateral aspect of the right lung base and left lung base. Small to moderate left pleural effusion. Cardiomegaly. Degenerative changes in the spine and shoulders. Deformities of several left lateral ribs. Impression: Endotracheal tube extending into the mid thoracic trachea. NG tube extending into the stomach. Right PICC line with tip extending to the cavoatrial junction. Biapical pleural thickening with upper lobe granulomatous changes and scattered nodularity. Hyperinflation suggestive for COPD and or emphysematous changes. Diffuse increased interstitial lung markings. More confluent consolidative changes in the right infrahilar region as well as the right lung base and left mid to lower lung zone. More confluent consolidative changes at the lateral aspect of the right lung base and left lung base. Small to moderate left pleural effusion. Cardiomegaly. Degenerative changes in the spine and shoulders. Deformities of several left lateral ribs.
--- NOTE | 2016-09-08 10:51 | CP.CCUPN ---
<Kiran Xavier Wai - Last Filed: 09/08/16 10:54> CCU Subjective - Physician Review Events Since Last Encounter (Free Text): 09/08/16 10:47 No new events since yesterday. Tolerating tube feeds @ 35. Remains on tigecycline and fluconazole. Pt remains on ventilator. 02/10/60% FiO2 Arousable, responds. Admits to pain. Critical Care Time Spent (in minutes): 35 CCU Objective - Vital Signs / Intake & Output Vital Signs (Last 4 hours): Vital Signs Pulse Resp BP Pulse Ox 09/08/16 09:44 128/75 09/08/16 09:43 128/56 L 09/08/16 07:00 56 L 12 99/54 L 100 09/08/16 06:58 54 L 12 99/54 L Intake and Output (Last 8hrs): Intake & Output 09/07/16 09/08/16 09/08/16 22:59 06:59 14:59 Intake Total 430 480 35 Output Total 1632 325 40 Balance -1202 155 -5 Intake: Intake, IV Amount 100 Right PICC 100 Tube Feeding 280 280 35 Other 150 100 Output: Urine 1630 325 40 Urethral (Martinez) 1630 325 40 Stool 2 - Physical Exam Narrative Physical Exam (Free Text): 09/08/16 10:50 Vital signs reviewed, No JVD Chest good air entry bilaterally, no wheezing or rales No murmurs noted No functional neurological deficit Head: Positive for: Normocephalic, Ecchymosis, Other (Contusions over left side of face healing). Negative for: Atraumatic Pupils: Positive for: PERRL Extroacular Muscles: Positive for: EOMI Conjunctiva: Positive for: Normal. Negative for: Injected, Icteric Mouth: Positive for: Dry, Other (ET tube in place) Nose (External): Positive for: Other (NGT in place- tolerating feeds) Neck: Negative for: JVD, Bruit Respiratory/Chest: Positive for: Good Air Exchange, Decreased Breath Sounds ( bibasilar R > L), Other (vent sounds heard throughout). Negative for: Clear to Auscultation, Respiratory Distress, Accessory Muscle Use, Wheezes, Retracting, Rhonchi Cardiovascular: Positive for: Regular Rate and Rhythm, Normal S1, S2, Peripheal Pulses Present. Negative for: Murmurs, Irregular Rhythm Abdomen: Positive for: Normal Bowel Sounds. Negative for: Tenderness, Distention, Peritoneal Signs, Rebound, Guarding Upper Extremity: Positive for: Normal Inspection, NORMAL PULSES, Other (mittens in place b/l). Negative for: Edema Lower Extremity: Positive for: NORMAL PULSES, Deformity (right leg shortened and externally rotated ), Other (grimaces when b/l hips palpated; offloading boots and SCDs in place and secure). Negative for: Normal Inspection, Edema, Normal ROM Neurological: Positive for: Other (alert and responsive). Negative for: Speech Normal Skin: Positive for: Warm, Dry, Normal Color, Other (b/l ecchymosis on face noted ). Negative for: Rashes Psychiatric: Positive for: Alert (responds to name ) - Medications Active Medications: Active Medications Generic Name Dose Route Start Last Admin Trade Name Freq PRN Reason Stop Dose Admin Acetaminophen 650 mg 08/14/16 23:50 08/25/16 00:45 Tylenol 650mg/20.3ml Solution Ud PO 650 mg Q6H PRN Administration temp.100.4&above;mild pain 1-3 Albuterol/Ipratropium 3 ml 08/16/16 14:00 09/08/16 07:46 Duoneb 3 Mg/0.5 Mg (3 Ml) Ud INH 3 ml RQ6 [facility] Administration Digoxin 0.25 mg 08/30/16 18:00 09/07/16 17:19 Lanoxin PO 0.25 mg DAILY@1800 [facility] Administration Famotidine 20 mg 09/06/16 10:00 09/08/16 09:43 Pepcid PO 20 mg DAILY [facility] Administration Furosemide 20 mg 09/05/16 10:00 09/08/16 09:43 Lasix PO 20 mg DAILY [facility] Administration Heparin Sodium (Porcine) 5,000 units 09/03/16 10:00 09/08/16 09:45 Heparin SC 5,000 units Q12 [facility] Administration Tigecycline 50 mg/ Sodium 100 mls @ 100 mls/hr 09/01/16 12:00 09/08/16 00:00 Chloride IVPB 100 mls/hr Q12H [facility] Administration Fluconazole 100 mls @ 100 mls/hr 09/03/16 11:00 09/08/16 09:36 Diflucan Iv 200 Mg/100 Ml Ns IVPB 100 mls/hr DAILY [facility] Administration Lisinopril 5 mg 08/17/16 10:00 09/08/16 09:44 Zestril PO 5 mg DAILY [facility] Administration Metoprolol Tartrate 25 mg 08/12/16 18:00 09/08/16 09:44 Lopressor PO 25 mg BID [facility] Administration Morphine Sulfate 2 mg 09/07/16 08:27 Morphine IVP Q6 PRN Pain, moderate (4-7) - Patient Studies Lab Studies: Lab Studies 09/08/16 09/08/16 09/08/16 Range/Units 06:28 06:28 06:20 WBC 7.2 (4.8-10.8) K/uL RBC 2.83 L (3.80-5.20) Mil/uL Hgb 9.7 L (11.0-16.0) g/dL Hct 30.1 L (34.0-47.0) % MCV 106.2 H (81.0-99.0) fL MCH 34.4 H (27.0-31.0) pg MCHC 32.3 L (33.0-37.0) g/dL RDW 15.8 H (11.5-14.5) % Plt Count 222 (130-400) K/uL MPV 11.1 (7.2-11.7) fL Neut % (Auto) 77.1 H (50.0-75.0) % Lymph % (Auto) 9.5 L (20.0-40.0) % [place] % (Auto) 10.4 H (0.0-10.0) % Eos % (Auto) 1.6 (0.0-4.0) % Baso % (Auto) 1.4 (0.0-2.0) % Neut # 5.6 (1.8-7.0) K/uL Lymph # 0.7 L (1.0-4.3) K/uL [place] # 0.8 (0.0-0.8) K/uL Eos # 0.1 (0.0-0.7) K/uL Baso # 0.1 (0.0-0.2) K/uL Neutrophils % (Manual) 89 H (50-75) % Lymphocytes % (Manual) 7 L (20-40) % Monocytes % (Manual) 4 (0-10) % Platelet Estimate Normal (NORMAL) Hypochromasia (manual) Slight Anisocytosis (manual) Slight Macrocytosis (manual) Slight Puncture Site Rradial pCO2 45 (35-45) mm/Hg pO2 171 H (80-100) mm/Hg HCO3 33.4 H (21-28) mmol/L ABG pH 7.50 H (7.35-7.45) ABG Total CO2 36.5 H (22-28) mmol/L ABG O2 Saturation 99.6 H (95-98) % ABG Base Excess 10.8 H (-2.0-3.0) mmol/L ABG Hemoglobin 9.8 L (11.7-17.4) g/dL ABG Carboxyhemoglobin 1.3 (0.5-1.5) % POC ABG HHb (Measured) 0.4 (0.0-5.0) % ABG Methemoglobin 1.6 (0.0-3.0) % Seng Test Pos A-a O2 Difference 201.0 mm/Hg Respiratory Index 1.2 Hgb O2 Saturation 96.8 (95.0-98.0) % Mechanical Rate 12 FiO2 60.0 % Tidal Volume 360 PEEP 5 Sodium 131 L (132-148) mmol/L Potassium 4.0 (3.6-5.2) mmol/L Chloride 96 L (98-107) mmol/L Carbon Dioxide 33 H (22-30) mmol/L Anion Gap 6 L (10-20) BUN 34 H (7-17) mg/dL Creatinine 0.5 L (0.7-1.2) MG/DL Est GFR ( Amer) > 60 Est GFR (Non-Af Amer) > 60 Random Glucose 92 (65-105) mg/dL Calcium 7.2 L (8.6-10.4) mg/dl Phosphorus 2.9 (2.5-4.5) mg/dL Magnesium 1.9 (1.6-2.3) mg/dL Total Bilirubin 0.6 (0.2-1.3) mg/dL AST 24 (14-36) U/L ALT 22 (9-52) U/L Alkaline Phosphatase 187 H (38-126) U/L Total Protein 5.0 L (6.3-8.3) g/dL Albumin 2.0 L (3.5-5.0) g/dL Globulin 3.0 (2.2-3.9) gm/dL Albumin/Globulin Ratio 0.7 L (1.0-2.1) Laboratory Results - last 24 hr 09/08/16 09/08/16 09/08/16 06:20 06:28 06:28 WBC 7.2 RBC 2.83 L Hgb 9.7 L Hct 30.1 L MCV 106.2 H MCH 34.4 H MCHC 32.3 L RDW 15.8 H Plt Count 222 MPV 11.1 Neut % (Auto) 77.1 H Lymph % (Auto) 9.5 L [place] % (Auto) 10.4 H Eos % (Auto) 1.6 Baso % (Auto) 1.4 Neut # 5.6 Lymph # 0.7 L [place] # 0.8 Eos # 0.1 Baso # 0.1 Neutrophils % (Manual) 89 H Lymphocytes % (Manual) 7 L Monocytes % (Manual) 4 Platelet Estimate Normal Hypochromasia (manual) Slight Anisocytosis (manual) Slight Macrocytosis (manual) Slight Puncture Site Rradial pCO2 45 pO2 171 H HCO3 33.4 H ABG pH 7.50 H ABG Total CO2 36.5 H ABG O2 Saturation 99.6 H ABG Base Excess 10.8 H ABG Hemoglobin 9.8 L ABG Carboxyhemoglobin 1.3 POC ABG HHb (Measured) 0.4 ABG Methemoglobin 1.6 Seng Test Pos A-a O2 Difference 201.0 Respiratory Index 1.2 Hgb O2 Saturation 96.8 Mechanical Rate 12 FiO2 60.0 Tidal Volume 360 PEEP 5 Sodium 131 L Potassium 4.0 Chloride 96 L Carbon Dioxide 33 H Anion Gap 6 L BUN 34 H Creatinine 0.5 L Est GFR ( Amer) > 60 Est GFR (Non-Af Amer) > 60 Random Glucose 92 Calcium 7.2 L Phosphorus 2.9 Magnesium 1.9 Total Bilirubin 0.6 AST 24 ALT 22 Alkaline Phosphatase 187 H Total Protein 5.0 L Albumin 2.0 L Globulin 3.0 Albumin/Globulin Ratio 0.7 L Assessment/Plan (1) Arrhythmia Assessment and plan: Acute on chronic resp failure, on ventilator Possible HCAP/vent dependent Cont Tigecycline and Fluconazole Prognosis very poor High risk for surgery DNR Will reduce FiO2 to 50 then 40% if tolerated will trial CPAP this afternoon Current Visit: Yes Status: Resolved (2) Closed fracture of greater trochanter of left femur Assessment and plan: bilateral hip fracture s/p recent fall currently having significant weakness and associated pain - currently poor surgical candidate - high risk for mortality/morbidity underlying neurological condition cannot be ruled out Pt at high risk for DVT/PE - will cont HSQ Q12H Awaiting cardiology risk stratification Current Visit: Yes Status: Acute (3) Pneumonia Assessment and plan: X-ray continues to show worsening infiltrate on right lung will cont abx wean down FiO2 and trial of CPAP f/u sputum culture Current Visit: Yes Status: Acute (4) Pneumonia Current Visit: Yes Status: Acute - Assessment and Plan (Free Text) Assessment: cont abx wean down FiO2/trial of CPAP cont DVT/GI prophylaxis full care per family at this time will d/w Dr Gali Xavier, PGY3 <Jes Talbert - Last Filed: 09/15/16 19:27> CCU Objective - Vital Signs / Intake & Output Vital Signs (Last 4 hours): Vital Signs Pulse Resp BP Pulse Ox 09/15/16 18:12 70 20 100/51 L 100 09/15/16 17:43 78 21 83/53 L 98 09/15/16 16:46 77 16 83/53 L 96 09/15/16 16:26 78 16 98/58 L 97 Intake and Output (Last 8hrs): Intake & Output 09/15/16 09/15/16 09/15/16 06:59 14:59 22:59 Intake Total 195 425 725 Output Total 105 71 220 Balance 90 354 505 Intake: Intake, IV Amount 100 425 725 Right PICC 100 425 725 Tube Feeding 35 Other 60 Output: Gastric Amount 50 200 Stomach 50 200 Urine 105 21 20 Urethral (Martinez) 105 21 20 Other: # Bowel Movements 0 - Medications Active Medications: Active Medications Generic Name Dose Route Start Last Admin Trade Name Freq PRN Reason Stop Dose Admin Acetaminophen 650 mg 08/14/16 23:50 08/25/16 00:45 Tylenol 650mg/20.3ml Solution Ud PO 650 mg Q6H PRN Administration temp.100.4&above;mild pain 1-3 Albuterol/Ipratropium 3 ml 08/16/16 14:00 09/15/16 13:43 Duoneb 3 Mg/0.5 Mg (3 Ml) Ud INH Not Given RQ6 [facility] Digoxin 0.25 mg 09/12/16 17:57 09/15/16 19:07 Lanoxin PO Not Given DAILY@1800 [place] Famotidine 20 mg 09/06/16 10:00 09/15/16 10:38 Pepcid PO 20 mg DAILY [place] Administration Heparin Sodium (Porcine) 5,000 units 09/03/16 10:00 09/14/16 21:51 Heparin SC 5,000 units Q12 [place] Administration Tigecycline 50 mg/ Sodium 100 mls @ 100 mls/hr 09/01/16 12:00 09/15/16 11:50 Chloride IVPB 100 mls/hr Q12H [place] Administration Fluconazole 100 mls @ 100 mls/hr 09/03/16 11:00 09/15/16 10:33 Diflucan Iv 200 Mg/100 Ml Ns IVPB 100 mls/hr DAILY [place] Administration Sodium Chloride 1,000 mls @ 75 mls/hr 09/15/16 10:00 09/15/16 10:32 Sodium Chloride 0.9% IV 75 mls/hr .[id number] [place] Administration Lisinopril 5 mg 08/17/16 10:00 09/15/16 10:38 Zestril PO 5 mg DAILY [place] Administration Lorazepam 1 mg 09/14/16 10:31 09/14/16 22:10 Ativan IVP 1 mg Q3H PRN Administration Agitation Metoprolol Tartrate 25 mg 08/12/16 18:00 09/12/16 09:29 Lopressor PO 25 mg BID [place] Administration Morphine Sulfate 1 mg 09/13/16 16:22 09/14/16 09:44 Morphine IV 1 mg Q4 PRN Administration Pain, moderate (4-7) - Patient Studies Lab Studies: Lab Studies 09/15/16 09/15/16 09/15/16 Range/Units 10:42 10:29 10:29 WBC 30.5 H (4.8-10.8) K/uL RBC 3.53 L (3.80-5.20) Mil/uL Hgb 11.7 (11.0-16.0) g/dL Hct 37.2 (34.0-47.0) % MCV 105.5 H (81.0-99.0) fL MCH 33.1 H (27.0-31.0) pg MCHC 31.4 L (33.0-37.0) g/dL RDW 16.5 H (11.5-14.5) % Plt Count 179 (130-400) K/uL MPV 12.5 H (7.2-11.7) fL Neut % (Auto) 93.4 H (50.0-75.0) % Lymph % (Auto) 2.8 L (20.0-40.0) % [place] % (Auto) 3.4 (0.0-10.0) % Eos % (Auto) 0.0 (0.0-4.0) % Baso % (Auto) 0.4 (0.0-2.0) % Neut # 28.5 H (1.8-7.0) K/uL Lymph # 0.8 L (1.0-4.3) K/uL [place] # 1.0 H (0.0-0.8) K/uL Eos # 0.0 (0.0-0.7) K/uL Baso # 0.1 (0.0-0.2) K/uL Neutrophils % (Manual) 95 H (50-75) % Band Neutrophils % (0-2) % Lymphocytes % (Manual) 1 L (20-40) % Monocytes % (Manual) 4 (0-10) % Platelet Estimate Normal (NORMAL) Large Platelets Hypochromasia (manual) Slight Anisocytosis (manual) Slight Macrocytosis (manual) Slight Target Cells Slight Tear Drop Cells Slight Scales Mound Cells Slight Puncture Site pCO2 (35-45) mm/Hg pO2 (80-100) mm/Hg HCO3 (21-28) mmol/L ABG pH (7.35-7.45) ABG Total CO2 (22-28) mmol/L ABG O2 Saturation (95-98) % ABG Base Excess (-2.0-3.0) mmol/L ABG Hemoglobin (11.7-17.4) g/dL ABG Carboxyhemoglobin (0.5-1.5) % POC ABG HHb (Measured) (0.0-5.0) % ABG Methemoglobin (0.0-3.0) % Seng Test A-a O2 Difference mm/Hg Respiratory Index Hgb O2 Saturation (95.0-98.0) % Mechanical Rate FiO2 % Tidal Volume PEEP Sodium 137 (132-148) mmol/L Potassium 5.1 (3.6-5.2) mmol/L Chloride 102 (98-107) mmol/L Carbon Dioxide 28 (22-30) mmol/L Anion Gap 12 (10-20) BUN 69 H (7-17) mg/dL Creatinine 1.1 (0.7-1.2) MG/DL Est GFR ( Amer) 58 Est GFR (Non-Af Amer) 48 Random Glucose 116 H (65-105) mg/dL Calcium 8.2 L (8.6-10.4) mg/dl Phosphorus (2.5-4.5) mg/dL Magnesium (1.6-2.3) mg/dL Total Bilirubin 0.7 (0.2-1.3) mg/dL AST 29 (14-36) U/L ALT 45 (9-52) U/L Alkaline Phosphatase 231 H (38-126) U/L Total Protein 6.3 (6.3-8.3) g/dL Albumin 2.4 L (3.5-5.0) g/dL Globulin 3.9 (2.2-3.9) gm/dL Albumin/Globulin Ratio 0.6 L (1.0-2.1) Blood Type B POSITIVE Antibody Screen Negative 09/15/16 09/15/16 09/15/16 Range/Units 06:18 06:18 05:07 WBC 26.2 H D (4.8-10.8) K/uL RBC 3.41 L (3.80-5.20) Mil/uL Hgb 11.4 (11.0-16.0) g/dL Hct 36.0 (34.0-47.0) % MCV 105.6 H (81.0-99.0) fL MCH 33.3 H (27.0-31.0) pg MCHC 31.6 L (33.0-37.0) g/dL RDW 16.3 H (11.5-14.5) % Plt Count 218 (130-400) K/uL MPV 13.1 H (7.2-11.7) fL Neut % (Auto) 91.4 H (50.0-75.0) % Lymph % (Auto) 3.8 L (20.0-40.0) % [place] % (Auto) 4.6 (0.0-10.0) % Eos % (Auto) 0.0 (0.0-4.0) % Baso % (Auto) 0.0 (0.0-2.0) % Neut # 24.0 H (1.8-7.0) K/uL Lymph # 1.0 (1.0-4.3) K/uL [place] # 1.2 H (0.0-0.8) K/uL Eos # 0.0 (0.0-0.7) K/uL Baso # 0.1 (0.0-0.2) K/uL Neutrophils % (Manual) 89 H (50-75) % Band Neutrophils % 6 H (0-2) % Lymphocytes % (Manual) 2 L (20-40) % Monocytes % (Manual) 3 (0-10) % Platelet Estimate Normal (NORMAL) Large Platelets Present Hypochromasia (manual) Anisocytosis (manual) Slight Macrocytosis (manual) Slight Target Cells Tear Drop Cells Scales [place]ound Cells Puncture Site L bra pCO2 39 (35-45) mm/Hg pO2 73 L (80-100) mm/Hg HCO3 29.5 H (21-28) mmol/L ABG pH 7.49 H (7.35-7.45) ABG Total CO2 30.9 H (22-28) mmol/L ABG O2 Saturation 98.2 H (95-98) % ABG Base Excess 5.9 H (-2.0-3.0) mmol/L ABG Hemoglobin 11.8 (11.7-17.4) g/dL ABG Carboxyhemoglobin 2.1 H (0.5-1.5) % POC ABG HHb (Measured) 1.7 (0.0-5.0) % ABG Methemoglobin 1.3 (0.0-3.0) % Seng Test Na A-a O2 Difference 163.0 mm/Hg Respiratory Index 2.2 Hgb O2 Saturation 95.0 (95.0-98.0) % Mechanical Rate 16 FiO2 40.0 % Tidal Volume 360 PEEP 5 Sodium 135 (132-148) mmol/L Potassium 5.0 (3.6-5.2) mmol/L Chloride 98 (98-107) mmol/L Carbon Dioxide 27 (22-30) mmol/L Anion Gap 14 (10-20) BUN 61 H (7-17) mg/dL Creatinine 0.9 (0.7-1.2) MG/DL Est GFR ( Amer) > 60 Est GFR (Non-Af Amer) > 60 Random Glucose 105 (65-105) mg/dL Calcium 7.2 L (8.6-10.4) mg/dl Phosphorus 4.3 (2.5-4.5) mg/dL Magnesium 2.0 (1.6-2.3) mg/dL Total Bilirubin 0.8 (0.2-1.3) mg/dL AST 24 (14-36) U/L ALT 33 (9-52) U/L Alkaline Phosphatase 206 H D (38-126) U/L Total Protein 6.0 L (6.3-8.3) g/dL Albumin 2.2 L (3.5-5.0) g/dL Globulin 3.8 (2.2-3.9) gm/dL Albumin/Globulin Ratio 0.6 L (1.0-2.1) Blood Type Antibody Screen Laboratory Results - last 24 hr 09/15/16 09/15/16 09/15/16 05:07 06:18 06:18 WBC 26.2 H D RBC 3.41 L Hgb 11.4 Hct 36.0 MCV 105.6 H MCH 33.3 H MCHC 31.6 L RDW 16.3 H Plt Count 218 MPV 13.1 H Neut % (Auto) 91.4 H Lymph % (Auto) 3.8 L [place] % (Auto) 4.6 Eos % (Auto) 0.0 Baso % (Auto) 0.0 Neut # 24.0 H Lymph # 1.0 [place] # 1.2 H Eos # 0.0 Baso # 0.1 Neutrophils % (Manual) 89 H Band Neutrophils % 6 H Lymphocytes % (Manual) 2 L Monocytes % (Manual) 3 Platelet Estimate Normal Large Platelets Present Hypochromasia (manual) Anisocytosis (manual) Slight Macrocytosis (manual) Slight Target Cells Tear Drop Cells Heri Cells Puncture Site L bra pCO2 39 pO2 73 L HCO3 29.5 H ABG pH 7.49 H ABG Total CO2 30.9 H ABG O2 Saturation 98.2 H ABG Base Excess 5.9 H ABG Hemoglobin 11.8 ABG Carboxyhemoglobin 2.1 H POC ABG HHb (Measured) 1.7 ABG Methemoglobin 1.3 Seng Test Na A-a O2 Difference 163.0 Respiratory Index 2.2 Hgb O2 Saturation 95.0 Mechanical Rate 16 FiO2 40.0 Tidal Volume 360 PEEP 5 Sodium 135 Potassium 5.0 Chloride 98 Carbon Dioxide 27 Anion Gap 14 BUN 61 H Creatinine 0.9 Est GFR ( Amer) > 60 Est GFR (Non-Af Amer) > 60 Random Glucose 105 Calcium 7.2 L Phosphorus 4.3 Magnesium 2.0 Total Bilirubin 0.8 AST 24 ALT 33 Alkaline Phosphatase 206 H D Total Protein 6.0 L Albumin 2.2 L Globulin 3.8 Albumin/Globulin Ratio 0.6 L Blood Type Antibody Screen 09/15/16 09/15/16 09/15/16 10:29 10:29 10:42 WBC 30.5 H RBC 3.53 L Hgb 11.7 Hct 37.2 MCV 105.5 H MCH 33.1 H MCHC 31.4 L RDW 16.5 H Plt Count 179 MPV 12.5 H Neut % (Auto) 93.4 H Lymph % (Auto) 2.8 L [place] % (Auto) 3.4 Eos % (Auto) 0.0 Baso % (Auto) 0.4 Neut # 28.5 H Lymph # 0.8 L [place] # 1.0 H Eos # 0.0 Baso # 0.1 Neutrophils % (Manual) 95 H Band Neutrophils % Lymphocytes % (Manual) 1 L Monocytes % (Manual) 4 Platelet Estimate Normal Large Platelets Hypochromasia (manual) Slight Anisocytosis (manual) Slight Macrocytosis (manual) Slight Target Cells Slight Tear Drop Cells Slight Heri Cells Slight Puncture Site pCO2 pO2 HCO3 ABG pH ABG Total CO2 ABG O2 Saturation ABG Base Excess ABG Hemoglobin ABG Carboxyhemoglobin POC ABG HHb (Measured) ABG Methemoglobin Seng Test A-a O2 Difference Respiratory Index Hgb O2 Saturation Mechanical Rate FiO2 Tidal Volume PEEP Sodium 137 Potassium 5.1 Chloride 102 Carbon Dioxide 28 Anion Gap 12 BUN 69 H Creatinine 1.1 Est GFR ( Amer) 58 Est GFR (Non-Af Amer) 48 Random Glucose 116 H Calcium 8.2 L Phosphorus Magnesium Total Bilirubin 0.7 AST 29 ALT 45 Alkaline Phosphatase 231 H Total Protein 6.3 Albumin 2.4 L Globulin 3.9 Albumin/Globulin Ratio 0.6 L Blood Type B POSITIVE Antibody Screen Negative EKG/Cardiology Studies: Cardiology / EKG Studies 09/15/16 08:02 EKG [ELECTROCARDIOGRAM] Stat Comment: Mode Of Transportation: Reason For Exam: pre-op eval Isolation: Contact Precautions: Standard Critical Care Progress Note - Nutrition Nutrition: Nutrition Category Date Time Status NPO Diet [DIET] Diets 09/15/16 Breakfast Active Assessment/Plan (1) Arrhythmia Current Visit: Yes Status: Resolved (2) Closed fracture of greater trochanter of left femur Current Visit: Yes Status: Acute (3) Contusion of head Current Visit: Yes Status: Acute (4) Fall Current Visit: Yes Status: Acute Attending/Attestation - Attestation I have personally seen and examined this patient.: Yes I have fully participated in the care of the patient.: Yes I have reviewed all pertinent clinical information: Yes Notes (Text): agree with above note during rounds in the am pt was examined and clinical decision was made and discussed with icu team
--- NOTE | 2016-09-08 12:06 | CP.PCM.PN ---
Subjective - Date & Time of Evaluation Date of Evaluation: 09/07/16 Time of Evaluation: 08:00 - Subjective Subjective: events noted rx renewed Objective - Vital Signs/Intake and Output Vital Signs (last 24 hours): Temp Pulse Resp BP Pulse Ox 97.5 F L 64 19 120/57 L 99 09/08/16 08:00 09/08/16 11:00 09/08/16 11:00 09/08/16 11:00 09/08/16 11:00 Intake and Output: 09/08/16 09/08/16 06:59 18:59 Intake Total 670 175 Output Total 455 40 Balance 215 135 - Medications Medications: Current Medications Acetaminophen (Tylenol 650mg/20.3ml Solution Ud) 650 mg PO Q6H PRN PRN Reason: temp.100.4&above;mild pain 1-3 Last Admin: 08/25/16 00:45 Dose: 650 mg Albuterol/Ipratropium (Duoneb 3 Mg/0.5 Mg (3 Ml) Ud) 3 ml INH RQ6 [facility] Last Admin: 09/08/16 07:46 Dose: 3 ml Digoxin (Lanoxin) 0.25 mg PO DAILY@1800 [facility] Last Admin: 09/07/16 17:19 Dose: 0.25 mg Famotidine (Pepcid) 20 mg PO DAILY [facility] Last Admin: 09/08/16 09:43 Dose: 20 mg Furosemide (Lasix) 20 mg PO DAILY [facility] Last Admin: 09/08/16 09:43 Dose: 20 mg Heparin Sodium (Porcine) (Heparin) 5,000 units SC Q12 [facility] Last Admin: 09/08/16 09:45 Dose: 5,000 units Tigecycline 50 mg/ Sodium (Chloride) 100 mls @ 100 mls/hr IVPB Q12H [facility] Last Admin: 09/08/16 11:43 Dose: 100 mls/hr Fluconazole (Diflucan Iv 200 Mg/100 Ml Ns) 100 mls @ 100 mls/hr IVPB DAILY [facility] Last Admin: 09/08/16 09:36 Dose: 100 mls/hr Lisinopril (Zestril) 5 mg PO DAILY [facility] Last Admin: 09/08/16 09:44 Dose: 5 mg Metoprolol Tartrate (Lopressor) 25 mg PO BID [facility] Last Admin: 09/08/16 09:44 Dose: 25 mg Morphine Sulfate (Morphine) 2 mg IVP Q6 PRN PRN Reason: Pain, moderate (4-7) - Labs Labs: 09/08/16 06:28 09/08/16 06:28 PT 10.6 SECONDS (9.7-12.2) 08/21/16 06:11 INR 1.0 08/21/16 06:11 APTT 29 SECONDS (21-34) 08/21/16 06:11 - Constitutional Appears: Non-toxic, Cachectic, Chronically Ill - Head Exam Head Exam: NORMOCEPHALIC - Eye Exam Eye Exam: absent: Scleral icterus - ENT Exam ENT Exam: Mucous Membranes Dry, Normal External Ear Exam - Neck Exam Neck Exam: absent: Lymphadenopathy - Respiratory Exam Respiratory Exam: Decreased Breath Sounds, Rhonchi - Cardiovascular Exam Cardiovascular Exam: REGULAR RHYTHM - GI/Abdominal Exam GI & Abdominal Exam: Distended Assessment and Plan (1) Acute respiratory failure Status: Acute (2) Closed fracture of greater trochanter of left femur Status: Acute (3) Contusion of head Status: Acute (4) Fall Status: Acute (5) Garden grade IV closed subcapital fracture of proximal end of right femur Status: Acute (6) Pelvic fracture Status: Acute (7) Pleural effusion due to CHF (congestive heart failure) Status: Acute (8) Right middle lobe pneumonia Status: Acute (9) CHF (NYHA class III, ACC/AHA stage C) Status: Chronic (10) Degenerative joint disease of right hip Status: Chronic (11) Multifocal atrial tachycardia Status: Chronic (12) Arrhythmia Status: Resolved (13) CHF exacerbation Status: Resolved (14) Dehydration Status: Resolved (15) Pleural effusion, right Status: Resolved (16) Sepsis Status: Resolved
--- NOTE | 2016-09-08 14:20 | CP.PCM.PN ---
Subjective - Date & Time of Evaluation Date of Evaluation: 09/08/16 Time of Evaluation: 08:00 - Subjective Subjective: s/p trach iv rx renewed Objective - Vital Signs/Intake and Output Vital Signs (last 24 hours): Temp Pulse Resp BP Pulse Ox 97.5 F L 64 19 120/57 L 99 09/08/16 08:00 09/08/16 11:00 09/08/16 11:00 09/08/16 11:00 09/08/16 11:00 Intake and Output: 09/08/16 09/08/16 06:59 18:59 Intake Total 670 175 Output Total 455 40 Balance 215 135 - Medications Medications: Current Medications Acetaminophen (Tylenol 650mg/20.3ml Solution Ud) 650 mg PO Q6H PRN PRN Reason: temp.100.4&above;mild pain 1-3 Last Admin: 08/25/16 00:45 Dose: 650 mg Albuterol/Ipratropium (Duoneb 3 Mg/0.5 Mg (3 Ml) Ud) 3 ml INH RQ6 [facility] Last Admin: 09/08/16 13:54 Dose: 3 ml Digoxin (Lanoxin) 0.25 mg PO DAILY@1800 [facility] Last Admin: 09/07/16 17:19 Dose: 0.25 mg Famotidine (Pepcid) 20 mg PO DAILY [facility] Last Admin: 09/08/16 09:43 Dose: 20 mg Furosemide (Lasix) 20 mg PO DAILY [facility] Last Admin: 09/08/16 09:43 Dose: 20 mg Heparin Sodium (Porcine) (Heparin) 5,000 units SC Q12 [facility] Last Admin: 09/08/16 09:45 Dose: 5,000 units Tigecycline 50 mg/ Sodium (Chloride) 100 mls @ 100 mls/hr IVPB Q12H [facility] Last Admin: 09/08/16 11:43 Dose: 100 mls/hr Fluconazole (Diflucan Iv 200 Mg/100 Ml Ns) 100 mls @ 100 mls/hr IVPB DAILY [facility] Last Admin: 09/08/16 09:36 Dose: 100 mls/hr Lisinopril (Zestril) 5 mg PO DAILY [facility] Last Admin: 09/08/16 09:44 Dose: 5 mg Metoprolol Tartrate (Lopressor) 25 mg PO BID [facility] Last Admin: 09/08/16 09:44 Dose: 25 mg Morphine Sulfate (Morphine) 2 mg IVP Q6 PRN PRN Reason: Pain, moderate (4-7) - Labs Labs: 09/08/16 06:28 09/08/16 06:28 PT 10.6 SECONDS (9.7-12.2) 08/21/16 06:11 INR 1.0 08/21/16 06:11 APTT 29 SECONDS (21-34) 08/21/16 06:11 - Constitutional Appears: Cachectic - Head Exam Head Exam: NORMOCEPHALIC - Eye Exam Eye Exam: absent: Scleral icterus - ENT Exam ENT Exam: Mucous Membranes Dry - Neck Exam Neck Exam: absent: Lymphadenopathy - Respiratory Exam Respiratory Exam: Decreased Breath Sounds, Rhonchi - Cardiovascular Exam Cardiovascular Exam: REGULAR RHYTHM - GI/Abdominal Exam GI & Abdominal Exam: Distended Assessment and Plan (1) Acute respiratory failure Status: Acute (2) Closed fracture of greater trochanter of left femur Status: Acute (3) Contusion of head Status: Acute (4) Fall Status: Acute (5) Garden grade IV closed subcapital fracture of proximal end of right femur Status: Acute (6) Pelvic fracture Status: Acute (7) Pleural effusion due to CHF (congestive heart failure) Status: Acute (8) Right middle lobe pneumonia Status: Acute (9) CHF (NYHA class III, ACC/AHA stage C) Status: Chronic (10) Degenerative joint disease of right hip Status: Chronic (11) Multifocal atrial tachycardia Status: Chronic (12) Arrhythmia Status: Resolved (13) CHF exacerbation Status: Resolved (14) Dehydration Status: Resolved (15) Pleural effusion, right Status: Resolved (16) Sepsis Status: Resolved
[2016-09-08] MEDS: Digoxin 250 mcg (0.25 mg) Tab PO SCH (17:26)
[2016-09-09] MEDS: Albuterol-Ipratrop 3 mg / 0.5 (3 ml) UD INH SCH ×3 (01:15→13:23)
[2016-09-09 06:58] LABS: BASO # 0.1 K/uL (0.0-0.2); BASO % 1.2 % (0.0-2.0); EOS # 0.1 K/uL (0.0-0.7); EOS % 1.6 % (0.0-4.0); HEMOGLOBIN 9.7 g/dL (11.0-16.0); MEAN CELL VOLUME 105.6 fL (81.0-99.0); MEAN CORPUSCULAR HGB CONC 33.1 g/dL (33.0-37.0); MEAN PLATELET VOLUME 11.3 fL (7.2-11.7); MONO # 0.8 K/uL (0.0-0.8); MONO % 11.9 % (0.0-10.0); NEUT # 5.1 K/uL (1.8-7.0); NEUT % 71.3 % (50.0-75.0); RBC 2.78 Mil/uL (3.80-5.20); RED CELL DISTRIBUTION WIDTH 15.9 % (11.5-14.5); WHITE BLOOD COUNT 7.1 K/uL (4.8-10.8)
[2016-09-09 07:13] LABS: ALB/GLOB RATIO 0.6 (1.0-2.1); ALT/SGPT 24 U/L (9-52); AST/SGOT 21 U/L (14-36); BLOOD UREA NITROGEN 38 mg/dL (7-17); GFR AFRICAN-AMERICAN > 60; GFR NON-AFRICAN AMERICAN > 60
[2016-09-09 07:14] LABS: CALCIUM 7.3 mg/dl (8.6-10.4); MAGNESIUM 1.9 mg/dL (1.6-2.3)
[2016-09-09] MEDS: Fluconazole IV 200mg/100 ml NS 100 ML IVPB SCH (09:31)
--- NOTE | 2016-09-09 14:58 | CP.CCUPN ---
CCU Subjective - Physician Review Events Since Last Encounter (Free Text): 09/09/16 14:56 Patient seen and examined in e intensive care unit. Case discussed with house staff in the morning rounds. remains intubated on ventilatory support No change in mental status Afebrile a DNR/DNI Awaiting family decision CCU Objective - Vital Signs / Intake & Output Intake and Output (Last 8hrs): Intake & Output 09/08/16 09/09/16 09/09/16 22:59 06:59 14:59 Intake Total 280 280 290 Output Total 1620 255 90 Balance -1340 25 200 Intake: Intake, IV Amount 150 Right PICC 150 Tube Feeding 280 280 140 Output: Urine 1620 255 90 Urethral (Martinez) 1620 255 90 Stool 0 Other: # Bowel Movements 2 - Physical Exam Head: Positive for: Normocephalic, Ecchymosis, Other (Contusions over left side of face healing). Negative for: Atraumatic Pupils: Positive for: PERRL Extroacular Muscles: Positive for: EOMI Conjunctiva: Positive for: Normal. Negative for: Injected, Icteric Mouth: Positive for: Dry, Other (ET tube in place) Nose (External): Positive for: Other (NGT in place- tolerating feeds) Neck: Negative for: JVD, Bruit Respiratory/Chest: Positive for: Good Air Exchange, Decreased Breath Sounds ( bibasilar R > L), Other (vent sounds heard throughout). Negative for: Clear to Auscultation, Respiratory Distress, Accessory Muscle Use, Wheezes, Retracting, Rhonchi Cardiovascular: Positive for: Regular Rate and Rhythm, Normal S1, S2, Peripheal Pulses Present. Negative for: Murmurs, Irregular Rhythm Abdomen: Positive for: Normal Bowel Sounds. Negative for: Tenderness, Distention, Peritoneal Signs, Rebound, Guarding Upper Extremity: Positive for: Normal Inspection, NORMAL PULSES, Other (mittens in place b/l). Negative for: Edema Lower Extremity: Positive for: NORMAL PULSES, Deformity (right leg shortened and externally rotated ), Other (grimaces when b/l hips palpated; offloading boots and SCDs in place and secure). Negative for: Normal Inspection, Edema, Normal ROM Neurological: Positive for: Other (alert and responsive). Negative for: Speech Normal Skin: Positive for: Warm, Dry, Normal Color, Other (b/l ecchymosis on face noted ). Negative for: Rashes Psychiatric: Positive for: Alert (responds to name ) - Medications Active Medications: Active Medications Generic Name Dose Route Start Last Admin Trade Name Freq PRN Reason Stop Dose Admin Acetaminophen 650 mg 08/14/16 23:50 08/25/16 00:45 Tylenol 650mg/20.3ml Solution Ud PO 650 mg Q6H PRN Administration temp.100.4&above;mild pain 1-3 Albuterol/Ipratropium 3 ml 08/16/16 14:00 09/09/16 13:23 Duoneb 3 Mg/0.5 Mg (3 Ml) Ud INH 3 ml RQ6 [facility] Administration Digoxin 0.25 mg 08/30/16 18:00 09/08/16 17:26 Lanoxin PO 0.25 mg DAILY@1800 [facility] Administration Famotidine 20 mg 09/06/16 10:00 09/09/16 09:31 Pepcid PO 20 mg DAILY [facility] Administration Furosemide 20 mg 09/05/16 10:00 09/09/16 09:22 Lasix PO Not Given DAILY [facility] Heparin Sodium (Porcine) 5,000 units 09/03/16 10:00 09/09/16 09:31 Heparin SC 5,000 units Q12 [facility] Administration Tigecycline 50 mg/ Sodium 100 mls @ 100 mls/hr 09/01/16 12:00 09/09/16 11:48 Chloride IVPB 100 mls/hr Q12H [facility] Administration Fluconazole 100 mls @ 100 mls/hr 09/03/16 11:00 09/09/16 09:31 Diflucan Iv 200 Mg/100 Ml Ns IVPB 100 mls/hr DAILY [facility] Administration Lisinopril 5 mg 08/17/16 10:00 09/09/16 09:22 Zestril PO Not Given DAILY [facility] Metoprolol Tartrate 25 mg 08/12/16 18:00 09/09/16 09:21 Lopressor PO Not Given BID [facility] Morphine Sulfate 2 mg 09/07/16 08:27 09/08/16 20:54 Morphine IVP 2 mg Q6 PRN Administration Pain, moderate (4-7) - Patient Studies Lab Studies: Lab Studies 09/09/16 09/09/16 Range/Units 06:51 06:51 WBC 7.1 (4.8-10.8) K/uL RBC 2.78 L (3.80-5.20) Mil/uL Hgb 9.7 L (11.0-16.0) g/dL Hct 29.4 L (34.0-47.0) % MCV 105.6 H (81.0-99.0) fL MCH 35.0 H (27.0-31.0) pg MCHC 33.1 (33.0-37.0) g/dL RDW 15.9 H (11.5-14.5) % Plt Count 209 (130-400) K/uL MPV 11.3 (7.2-11.7) fL Neut % (Auto) 71.3 (50.0-75.0) % Lymph % (Auto) 14.0 L (20.0-40.0) % [place] % (Auto) 11.9 H (0.0-10.0) % Eos % (Auto) 1.6 (0.0-4.0) % Baso % (Auto) 1.2 (0.0-2.0) % Neut # 5.1 (1.8-7.0) K/uL Lymph # 1.0 (1.0-4.3) K/uL [place] # 0.8 (0.0-0.8) K/uL Eos # 0.1 (0.0-0.7) K/uL Baso # 0.1 (0.0-0.2) K/uL Sodium 132 (132-148) mmol/L Potassium 4.0 (3.6-5.2) mmol/L Chloride 95 L (98-107) mmol/L Carbon Dioxide 34 H (22-30) mmol/L Anion Gap 7 L (10-20) BUN 38 H (7-17) mg/dL Creatinine 0.5 L (0.7-1.2) MG/DL Est GFR ( Amer) > 60 Est GFR (Non-Af Amer) > 60 Random Glucose 68 (65-105) mg/dL Calcium 7.3 L (8.6-10.4) mg/dl Phosphorus 2.5 (2.5-4.5) mg/dL Magnesium 1.9 (1.6-2.3) mg/dL Total Bilirubin 0.7 (0.2-1.3) mg/dL AST 21 (14-36) U/L ALT 24 (9-52) U/L Alkaline Phosphatase 175 H (38-126) U/L Total Protein 5.0 L (6.3-8.3) g/dL Albumin 2.0 L (3.5-5.0) g/dL Globulin 3.1 (2.2-3.9) gm/dL Albumin/Globulin Ratio 0.6 L (1.0-2.1) Laboratory Results - last 24 hr 09/09/16 09/09/16 06:51 06:51 WBC 7.1 RBC 2.78 L Hgb 9.7 L Hct 29.4 L MCV 105.6 H MCH 35.0 H MCHC 33.1 RDW 15.9 H Plt Count 209 MPV 11.3 Neut % (Auto) 71.3 Lymph % (Auto) 14.0 L [place] % (Auto) 11.9 H Eos % (Auto) 1.6 Baso % (Auto) 1.2 Neut # 5.1 Lymph # 1.0 [place] # 0.8 Eos # 0.1 Baso # 0.1 Sodium 132 Potassium 4.0 Chloride 95 L Carbon Dioxide 34 H Anion Gap 7 L BUN 38 H Creatinine 0.5 L Est GFR ( Amer) > 60 Est GFR (Non-Af Amer) > 60 Random Glucose 68 Calcium 7.3 L Phosphorus 2.5 Magnesium 1.9 Total Bilirubin 0.7 AST 21 ALT 24 Alkaline Phosphatase 175 H Total Protein 5.0 L Albumin 2.0 L Globulin 3.1 Albumin/Globulin Ratio 0.6 L Review of Systems - Review of Systems Systems not reviewed;Unavailable: Intubated Critical Care Progress Note - Ventilator Checklist Head of Bed 30 Degrees: Yes Daily Sedation Vacation: Yes Daily Spontaneous Breathing Trial: No PUD Prophalyxis: No DVT Prophylaxis: No - Vent Settings MODE:: PRVC Assessment/Plan (1) Acute respiratory failure Assessment and plan: Patient tolerating CPAP since morning CAT scan of the chest showed no pulmonary embolism but consistent with bilateral pleural effusion and severe emphysema Plan to extubate nebulizer treatment Start IV steroids Continue antibiotics Current Visit: Yes Status: Acute Comment: ccontinue ventilatory support Continue antibiotics Followup chest x-ray DNR/DNI and awaiting family decision (2) CHF exacerbation Current Visit: Yes Status: Resolved (3) Closed fracture of greater trochanter of left femur Current Visit: Yes Status: Acute (4) Garden grade IV closed subcapital fracture of proximal end of right femur Current Visit: Yes Status: Acute
[2016-09-09] MEDS: Digoxin 250 mcg (0.25 mg) Tab PO SCH (17:04)
--- NOTE | 2016-09-09 21:03 | CP.PCM.PN ---
Subjective - Date & Time of Evaluation Date of Evaluation: 09/09/16 Time of Evaluation: 21:01 Objective - Vital Signs/Intake and Output Vital Signs (last 24 hours): Temp Pulse Resp BP Pulse Ox 97.4 F L 89 19 113/75 100 09/09/16 20:00 09/09/16 20:00 09/09/16 20:00 09/09/16 20:00 09/09/16 20:00 Intake and Output: 09/09/16 09/10/16 18:59 06:59 Intake Total 605 35 Output Total 315 20 Balance 290 15 - Medications Medications: Current Medications Acetaminophen (Tylenol 650mg/20.3ml Solution Ud) 650 mg PO Q6H PRN PRN Reason: temp.100.4&above;mild pain 1-3 Last Admin: 08/25/16 00:45 Dose: 650 mg Albuterol/Ipratropium (Duoneb 3 Mg/0.5 Mg (3 Ml) Ud) 3 ml INH RQ6 [facility] Last Admin: 09/09/16 13:23 Dose: 3 ml Digoxin (Lanoxin) 0.25 mg PO DAILY@1800 [facility] Last Admin: 09/09/16 17:04 Dose: Not Given Famotidine (Pepcid) 20 mg PO DAILY [facility] Last Admin: 09/09/16 09:31 Dose: 20 mg Furosemide (Lasix) 20 mg PO DAILY [facility] Last Admin: 09/09/16 09:22 Dose: Not Given Heparin Sodium (Porcine) (Heparin) 5,000 units SC Q12 [facility] Last Admin: 09/09/16 09:31 Dose: 5,000 units Tigecycline 50 mg/ Sodium (Chloride) 100 mls @ 100 mls/hr IVPB Q12H [facility] Last Admin: 09/09/16 11:48 Dose: 100 mls/hr Fluconazole (Diflucan Iv 200 Mg/100 Ml Ns) 100 mls @ 100 mls/hr IVPB DAILY [facility] Last Admin: 09/09/16 09:31 Dose: 100 mls/hr Lisinopril (Zestril) 5 mg PO DAILY [facility] Last Admin: 09/09/16 09:22 Dose: Not Given Metoprolol Tartrate (Lopressor) 25 mg PO BID [facility] Last Admin: 09/09/16 17:03 Dose: Not Given Morphine Sulfate (Morphine) 2 mg IVP Q6 PRN PRN Reason: Pain, moderate (4-7) Last Admin: 09/08/16 20:54 Dose: 2 mg - Labs Labs: 09/09/16 06:51 09/09/16 06:51 PT 10.6 SECONDS (9.7-12.2) 08/21/16 06:11 INR 1.0 08/21/16 06:11 APTT 29 SECONDS (21-34) 08/21/16 06:11 Assessment and Plan (1) Closed fracture of greater trochanter of left femur Status: Acute (2) Dehydration Status: Resolved (3) Sepsis Status: Resolved (4) Fall Status: Acute (5) Arrhythmia Status: Resolved (6) Contusion of head Status: Acute (7) Garden grade IV closed subcapital fracture of proximal end of right femur Status: Acute (8) CHF exacerbation Status: Resolved (9) Acute respiratory failure Status: Acute (10) Pleural effusion, right Status: Resolved (11) Right middle lobe pneumonia Status: Acute (12) VRE (vancomycin resistant enterococcus) culture positive Status: Acute
--- NOTE | 2016-09-09 21:10 | CP.PCM.PN ---
Subjective - Date & Time of Evaluation Date of Evaluation: 09/09/16 Time of Evaluation: 21:07 - Subjective Subjective: Patient could not tolerate CPAP this AM and became hypotensive. Now back on ventilator, alert, responding. CXR yesterday showed no change in RML, RLL, and LLL infiltrates. On IV Tigacyl. Objective - Vital Signs/Intake and Output Vital Signs (last 24 hours): Temp Pulse Resp BP Pulse Ox 97.4 F L 89 19 113/75 100 09/09/16 20:00 09/09/16 20:00 09/09/16 20:00 09/09/16 20:00 09/09/16 20:00 Intake and Output: 09/09/16 09/10/16 18:59 06:59 Intake Total 605 35 Output Total 315 20 Balance 290 15 - Medications Medications: Current Medications Acetaminophen (Tylenol 650mg/20.3ml Solution Ud) 650 mg PO Q6H PRN PRN Reason: temp.100.4&above;mild pain 1-3 Last Admin: 08/25/16 00:45 Dose: 650 mg Albuterol/Ipratropium (Duoneb 3 Mg/0.5 Mg (3 Ml) Ud) 3 ml INH RQ6 [facility] Last Admin: 09/09/16 13:23 Dose: 3 ml Digoxin (Lanoxin) 0.25 mg PO DAILY@1800 [facility] Last Admin: 09/09/16 17:04 Dose: Not Given Famotidine (Pepcid) 20 mg PO DAILY [facility] Last Admin: 09/09/16 09:31 Dose: 20 mg Furosemide (Lasix) 20 mg PO DAILY [facility] Last Admin: 09/09/16 09:22 Dose: Not Given Heparin Sodium (Porcine) (Heparin) 5,000 units SC Q12 [facility] Last Admin: 09/09/16 09:31 Dose: 5,000 units Tigecycline 50 mg/ Sodium (Chloride) 100 mls @ 100 mls/hr IVPB Q12H [facility] Last Admin: 09/09/16 11:48 Dose: 100 mls/hr Fluconazole (Diflucan Iv 200 Mg/100 Ml Ns) 100 mls @ 100 mls/hr IVPB DAILY [facility] Last Admin: 09/09/16 09:31 Dose: 100 mls/hr Lisinopril (Zestril) 5 mg PO DAILY [facility] Last Admin: 09/09/16 09:22 Dose: Not Given Metoprolol Tartrate (Lopressor) 25 mg PO BID [facility] Last Admin: 09/09/16 17:03 Dose: Not Given Morphine Sulfate (Morphine) 2 mg IVP Q6 PRN PRN Reason: Pain, moderate (4-7) Last Admin: 09/08/16 20:54 Dose: 2 mg - Labs Labs: 09/09/16 06:51 09/09/16 06:51 PT 10.6 SECONDS (9.7-12.2) 08/21/16 06:11 INR 1.0 08/21/16 06:11 APTT 29 SECONDS (21-34) 08/21/16 06:11 - Constitutional Appears: Chronically Ill - Head Exam Head Exam: NORMAL INSPECTION - Eye Exam Eye Exam: Normal appearance - ENT Exam ENT Exam: Normal Exam - Respiratory Exam Respiratory Exam: Rhonchi - Cardiovascular Exam Cardiovascular Exam: REGULAR RHYTHM - GI/Abdominal Exam GI & Abdominal Exam: Soft, Normal Bowel Sounds - Rectal Exam Rectal Exam: Deferred - Extremities Exam Additional comments: Edema of the lower extremities. - Back Exam Back Exam: NORMAL INSPECTION - Neurological Exam Neurological Exam: Awake - Psychiatric Exam Psychiatric exam: Anxious - Skin Skin Exam: Abrasion Assessment and Plan (1) Closed fracture of greater trochanter of left femur Status: Acute (2) Dehydration Status: Resolved (3) Sepsis Status: Resolved (4) Fall Status: Acute (5) Arrhythmia Status: Resolved (6) Contusion of head Status: Acute (7) Garden grade IV closed subcapital fracture of proximal end of right femur Status: Acute (8) CHF exacerbation Status: Resolved (9) Acute respiratory failure Status: Acute (10) Pleural effusion, right Status: Resolved (11) Right middle lobe pneumonia Status: Acute (12) VRE (vancomycin resistant enterococcus) culture positive Status: Acute
[2016-09-10] MEDS: Albuterol-Ipratrop 3 mg / 0.5 (3 ml) UD INH SCH ×4 (01:36→20:01)
[2016-09-10 06:44] LABS: BASO # 0.1 K/uL (0.0-0.2); BASO % 1.4 % (0.0-2.0); EOS # 0.1 K/uL (0.0-0.7); EOS % 0.6 % (0.0-4.0); HEMOGLOBIN 10.4 g/dL (11.0-16.0); LYMPH # 0.8 K/uL (1.0-4.3); LYMPH % 8.9 % (20.0-40.0); MEAN CELL VOLUME 105.7 fL (81.0-99.0); MEAN CORPUSCULAR HGB CONC 33.1 g/dL (33.0-37.0); MEAN PLATELET VOLUME 11.3 fL (7.2-11.7); MONO # 0.8 K/uL (0.0-0.8); MONO % 8.8 % (0.0-10.0); NEUT # 7.6 K/uL (1.8-7.0); NEUT % 80.3 % (50.0-75.0); NRBC % 0.1 % (0.0-2.0); PLATELET COUNT 224 K/uL (130-400); RBC 2.96 Mil/uL (3.80-5.20); RED CELL DISTRIBUTION WIDTH 16.1 % (11.5-14.5); WHITE BLOOD COUNT 9.5 K/uL (4.8-10.8)
[2016-09-10 07:00] LABS: ALBUMIN 2.2 g/dL (3.5-5.0)
[2016-09-10 07:03] LABS: AST/SGOT 21 U/L (14-36); GFR AFRICAN-AMERICAN > 60; GFR NON-AFRICAN AMERICAN > 60
[2016-09-10 07:04] LABS: ALB/GLOB RATIO 0.6 (1.0-2.1); ALT/SGPT 25 U/L (9-52); BLOOD UREA NITROGEN 47 mg/dL (7-17); CALCIUM 7.5 mg/dl (8.6-10.4); MAGNESIUM 2.1 mg/dL (1.6-2.3)
--- NOTE | 2016-09-10 07:23 | RAD ---
HISTORY: Intubated COMPARISON: 08/23/2016 FINDINGS: LUNGS: Endotracheal tube extending into the mid thoracic trachea. NG tube extending into the stomach. Right PICC line with tip extending into the distal right SVC. Biapical pleural thickening with upper lobe granulomatous changes. Diffuse increased interstitial lung markings bilaterally. Patchy nodular consolidative changes in the mid to lower lung zones bilaterally. PLEURA: As above. CARDIOVASCULAR: Calcification at the aortic knob. OSSEOUS STRUCTURES: Degenerative changes in the spine shoulders. VISUALIZED UPPER ABDOMEN: Normal. OTHER FINDINGS: None. IMPRESSION: Endotracheal tube extending into the mid thoracic trachea. NG tube extending into the stomach. Right PICC line with tip extending into the distal right SVC. Biapical pleural thickening with upper lobe granulomatous changes. Diffuse increased interstitial lung markings bilaterally. Patchy nodular consolidative changes in the mid to lower lung zones bilaterally.
[2016-09-10 07:50] LABS: ANISOCYTOSIS SLIGHT; BANDS 1 % (0-2); LYMPHOCYTE 3 % (20-40); MONOCYTE 2 % (0-10); NEUTROPHIL 94 % (50-75); PLATELET ESTIMATE NORMAL (NORMAL); TOTAL CELLS COUNTED 100
--- NOTE | 2016-09-10 08:54 | CP.CCUPN ---
<Kirna Xavier Wai - Last Filed: 09/10/16 09:45> CCU Subjective - Physician Review Events Since Last Encounter (Free Text): 09/10/16 08:52 PT S&E. JESS. Pt was trialled on CPAP yesterday, tolerated initially but then had episode of hypotension. Pt placed back on PRVC at that time 18/5/50%. No change in mental status. Remains afebrile. Tolerating tube feeds @ 35ml/hr. D /W family over phone, unable to make decisions regarding terminal extubation vs tracheostomy, will travel to visit pt and decide. Per pt she would want a trach. 09/10/16 09:45 CCU Objective - Vital Signs / Intake & Output Vital Signs (Last 4 hours): Vital Signs Pulse Resp BP Pulse Ox 09/10/16 06:00 92 H 20 100 09/10/16 05:58 90 18 83/56 L 100 09/10/16 05:00 83 18 100 09/10/16 04:58 93 H 16 85/53 L 98 Intake and Output (Last 8hrs): Intake & Output 09/09/16 09/10/16 09/10/16 22:59 06:59 14:59 Intake Total 280 380 Output Total 195 230 Balance 85 150 Intake: Intake, IV Amount 0 100 Right PICC 0 100 Oral 0 0 Tube Feeding 280 280 Output: Urine 195 230 Urethral (Martinez) 195 230 Stool 0 0 Emesis 0 0 - Physical Exam Head: Positive for: Normocephalic, Ecchymosis, Other (Contusions over left side of face healing). Negative for: Atraumatic Pupils: Positive for: PERRL Extroacular Muscles: Positive for: EOMI Conjunctiva: Positive for: Normal. Negative for: Injected, Icteric Mouth: Positive for: Dry, Other (ET tube in place) Nose (External): Positive for: Other (NGT in place- tolerating feeds) Neck: Negative for: JVD, Bruit Respiratory/Chest: Positive for: Good Air Exchange, Decreased Breath Sounds ( bibasilar R > L), Other (vent sounds heard throughout). Negative for: Clear to Auscultation, Respiratory Distress, Accessory Muscle Use, Wheezes, Retracting, Rhonchi Cardiovascular: Positive for: Regular Rate and Rhythm, Normal S1, S2, Peripheal Pulses Present. Negative for: Murmurs, Irregular Rhythm Abdomen: Positive for: Normal Bowel Sounds. Negative for: Tenderness, Distention, Peritoneal Signs, Rebound, Guarding Upper Extremity: Positive for: Normal Inspection, NORMAL PULSES, Other (mittens in place b/l). Negative for: Edema Lower Extremity: Positive for: NORMAL PULSES, Deformity (right leg shortened and externally rotated ), Other (grimaces when b/l hips palpated; offloading boots and SCDs in place and secure). Negative for: Normal Inspection, Edema, Normal ROM Neurological: Positive for: Other (alert and responsive). Negative for: Speech Normal Skin: Positive for: Warm, Dry, Normal Color, Other (b/l ecchymosis on face noted ). Negative for: Rashes Psychiatric: Positive for: Alert (responds to name ) - Medications Active Medications: Active Medications Generic Name Dose Route Start Last Admin Trade Name Freq PRN Reason Stop Dose Admin Acetaminophen 650 mg 08/14/16 23:50 08/25/16 00:45 Tylenol 650mg/20.3ml Solution Ud PO 650 mg Q6H PRN Administration temp.100.4&above;mild pain 1-3 Albuterol/Ipratropium 3 ml 08/16/16 14:00 09/10/16 07:29 Duoneb 3 Mg/0.5 Mg (3 Ml) Ud INH 3 ml RQ6 [place] Administration Digoxin 0.25 mg 08/30/16 18:00 09/09/16 17:04 Lanoxin PO Not Given DAILY@1800 [facility] Famotidine 20 mg 09/06/16 10:00 09/09/16 09:31 Pepcid PO 20 mg DAILY [facility] Administration Furosemide 20 mg 09/05/16 10:00 09/09/16 09:22 Lasix PO Not Given DAILY [facility] Heparin Sodium (Porcine) 5,000 units 09/03/16 10:00 09/09/16 21:46 Heparin SC 5,000 units Q12 [place] Administration Tigecycline 50 mg/ Sodium 100 mls @ 100 mls/hr 09/01/16 12:00 09/10/16 00:00 Chloride IVPB 100 mls/hr Q12H [facility] Administration Fluconazole 100 mls @ 100 mls/hr 09/03/16 11:00 09/09/16 09:31 Diflucan Iv 200 Mg/100 Ml Ns IVPB 100 mls/hr DAILY [facility] Administration Lisinopril 5 mg 08/17/16 10:00 09/09/16 09:22 Zestril PO Not Given DAILY [facility] Metoprolol Tartrate 25 mg 08/12/16 18:00 09/09/16 17:03 Lopressor PO Not Given BID [place] Morphine Sulfate 2 mg 09/07/16 08:27 09/08/16 20:54 Morphine IVP 2 mg Q6 PRN Administration Pain, moderate (4-7) - Patient Studies Lab Studies: Lab Studies 09/10/16 09/10/16 Range/Units 06:38 06:38 WBC 9.5 (4.8-10.8) K/uL RBC 2.96 L (3.80-5.20) Mil/uL Hgb 10.4 L (11.0-16.0) g/dL Hct 31.3 L (34.0-47.0) % MCV 105.7 H (81.0-99.0) fL MCH 35.0 H (27.0-31.0) pg MCHC 33.1 (33.0-37.0) g/dL RDW 16.1 H (11.5-14.5) % Plt Count 224 (130-400) K/uL MPV 11.3 (7.2-11.7) fL Neut % (Auto) 80.3 H (50.0-75.0) % Lymph % (Auto) 8.9 L (20.0-40.0) % [place] % (Auto) 8.8 (0.0-10.0) % Eos % (Auto) 0.6 (0.0-4.0) % Baso % (Auto) 1.4 (0.0-2.0) % Neut # 7.6 H (1.8-7.0) K/uL Lymph # 0.8 L (1.0-4.3) K/uL [place] # 0.8 (0.0-0.8) K/uL Eos # 0.1 (0.0-0.7) K/uL Baso # 0.1 (0.0-0.2) K/uL Neutrophils % (Manual) 94 H (50-75) % Band Neutrophils % 1 (0-2) % Lymphocytes % (Manual) 3 L (20-40) % Monocytes % (Manual) 2 (0-10) % Platelet Estimate Normal (NORMAL) Anisocytosis (manual) Slight Macrocytosis (manual) Slight Sodium 134 (132-148) mmol/L Potassium 4.4 (3.6-5.2) mmol/L Chloride 97 L (98-107) mmol/L Carbon Dioxide 32 H (22-30) mmol/L Anion Gap 9 L (10-20) BUN 47 H (7-17) mg/dL Creatinine 0.7 (0.7-1.2) MG/DL Est GFR ( Amer) > 60 Est GFR (Non-Af Amer) > 60 Random Glucose 107 H (65-105) mg/dL Calcium 7.5 L (8.6-10.4) mg/dl Phosphorus 3.7 (2.5-4.5) mg/dL Magnesium 2.1 (1.6-2.3) mg/dL Total Bilirubin 0.6 (0.2-1.3) mg/dL AST 21 (14-36) U/L ALT 25 (9-52) U/L Alkaline Phosphatase 224 H D (38-126) U/L Total Protein 5.6 L (6.3-8.3) g/dL Albumin 2.2 L (3.5-5.0) g/dL Globulin 3.4 (2.2-3.9) gm/dL Albumin/Globulin Ratio 0.6 L (1.0-2.1) Laboratory Results - last 24 hr 09/10/16 09/10/16 06:38 06:38 WBC 9.5 RBC 2.96 L Hgb 10.4 L Hct 31.3 L MCV 105.7 H MCH 35.0 H MCHC 33.1 RDW 16.1 H Plt Count 224 MPV 11.3 Neut % (Auto) 80.3 H Lymph % (Auto) 8.9 L [place] % (Auto) 8.8 Eos % (Auto) 0.6 Baso % (Auto) 1.4 Neut # 7.6 H Lymph # 0.8 L [place] # 0.8 Eos # 0.1 Baso # 0.1 Neutrophils % (Manual) 94 H Band Neutrophils % 1 Lymphocytes % (Manual) 3 L Monocytes % (Manual) 2 Platelet Estimate Normal Anisocytosis (manual) Slight Macrocytosis (manual) Slight Sodium 134 Potassium 4.4 Chloride 97 L Carbon Dioxide 32 H Anion Gap 9 L BUN 47 H Creatinine 0.7 Est GFR ( Amer) > 60 Est GFR (Non-Af Amer) > 60 Random Glucose 107 H Calcium 7.5 L Phosphorus 3.7 Magnesium 2.1 Total Bilirubin 0.6 AST 21 ALT 25 Alkaline Phosphatase 224 H D Total Protein 5.6 L Albumin 2.2 L Globulin 3.4 Albumin/Globulin Ratio 0.6 L Assessment/Plan (1) Arrhythmia Assessment and plan: Acute on chronic resp failure, on ventilator Possible HCAP/vent dependent Cont Tigecycline Prognosis very poor High risk for orthopaedic surgery DNR/DNI will trial CPAP again this afternoon will d/w family trach vs terminal extubation Current Visit: Yes Status: Resolved (2) Closed fracture of greater trochanter of left femur Assessment and plan: bilateral hip fracture s/p recent fall currently having significant weakness and associated pain - currently poor surgical candidate - high risk for mortality/morbidity underlying neurological condition cannot be ruled out Pt at high risk for DVT/PE - will cont HSQ Q12H Current Visit: Yes Status: Acute (3) Pneumonia Assessment and plan: will cont abx wean down FiO2 and trial of CPAP f/u sputum culture Current Visit: Yes Status: Acute - Assessment and Plan (Free Text) Plan: will d/w family plan for tracheostomy vs terminal extubation cont trial of CPAP cont abx and DVT prophylaxis d/w Dr Zak Xavier, PGY3 <Maurizio Crespo S - Last Filed: 09/10/16 17:02> CCU Objective - Vital Signs / Intake & Output Vital Signs (Last 4 hours): Vital Signs Pulse Resp BP Pulse Ox 09/10/16 14:00 88 19 98 09/10/16 13:58 87 20 105/68 100 Intake and Output (Last 8hrs): Intake & Output 09/10/16 09/10/16 09/10/16 06:59 14:59 22:59 Intake Total 380 430 Output Total 230 210 Balance 150 220 Intake: Intake, IV Amount 100 150 Right PICC 100 150 Oral 0 Tube Feeding 280 280 Output: Urine 230 210 Urethral (Martinze) 230 210 Stool 0 0 Emesis 0 0 - Medications Active Medications: Active Medications Generic Name Dose Route Start Last Admin Trade Name Freq PRN Reason Stop Dose Admin Acetaminophen 650 mg 08/14/16 23:50 08/25/16 00:45 Tylenol 650mg/20.3ml Solution Ud PO 650 mg Q6H PRN Administration temp.100.4&above;mild pain 1-3 Albuterol/Ipratropium 3 ml 08/16/16 14:00 09/10/16 13:00 Duoneb 3 Mg/0.5 Mg (3 Ml) Ud INH 3 ml RQ6 [place] Administration Digoxin 0.25 mg 08/30/16 18:00 09/09/16 17:04 Lanoxin PO Not Given DAILY@1800 [place] Famotidine 20 mg 09/06/16 10:00 09/10/16 09:23 Pepcid PO 20 mg DAILY [place] Administration Furosemide 20 mg 09/05/16 10:00 09/10/16 09:21 Lasix PO Not Given DAILY [place] Heparin Sodium (Porcine) 5,000 units 09/03/16 10:00 09/10/16 09:23 Heparin SC 5,000 units Q12 [place] Administration Tigecycline 50 mg/ Sodium 100 mls @ 100 mls/hr 09/01/16 12:00 09/10/16 12:27 Chloride IVPB 100 mls/hr Q12H [place] Administration Fluconazole 100 mls @ 100 mls/hr 09/03/16 11:00 09/10/16 09:24 Diflucan Iv 200 Mg/100 Ml Ns IVPB 100 mls/hr DAILY [place] Administration Lisinopril 5 mg 08/17/16 10:00 09/10/16 09:21 Zestril PO Not Given DAILY [facility] Metoprolol Tartrate 25 mg 08/12/16 18:00 09/10/16 09:21 Lopressor PO Not Given BID [facility] Morphine Sulfate 2 mg 09/07/16 08:27 09/08/16 20:54 Morphine IVP 2 mg Q6 PRN Administration Pain, moderate (4-7) - Patient Studies Lab Studies: Lab Studies 09/10/16 09/10/16 Range/Units 06:38 06:38 WBC 9.5 (4.8-10.8) K/uL RBC 2.96 L (3.80-5.20) Mil/uL Hgb 10.4 L (11.0-16.0) g/dL Hct 31.3 L (34.0-47.0) % MCV 105.7 H (81.0-99.0) fL MCH 35.0 H (27.0-31.0) pg MCHC 33.1 (33.0-37.0) g/dL RDW 16.1 H (11.5-14.5) % Plt Count 224 (130-400) K/uL MPV 11.3 (7.2-11.7) fL Neut % (Auto) 80.3 H (50.0-75.0) % Lymph % (Auto) 8.9 L (20.0-40.0) % [place] % (Auto) 8.8 (0.0-10.0) % Eos % (Auto) 0.6 (0.0-4.0) % Baso % (Auto) 1.4 (0.0-2.0) % Neut # 7.6 H (1.8-7.0) K/uL Lymph # 0.8 L (1.0-4.3) K/uL [place] # 0.8 (0.0-0.8) K/uL Eos # 0.1 (0.0-0.7) K/uL Baso # 0.1 (0.0-0.2) K/uL Neutrophils % (Manual) 94 H (50-75) % Band Neutrophils % 1 (0-2) % Lymphocytes % (Manual) 3 L (20-40) % Monocytes % (Manual) 2 (0-10) % Platelet Estimate Normal (NORMAL) Anisocytosis (manual) Slight Macrocytosis (manual) Slight Sodium 134 (132-148) mmol/L Potassium 4.4 (3.6-5.2) mmol/L Chloride 97 L (98-107) mmol/L Carbon Dioxide 32 H (22-30) mmol/L Anion Gap 9 L (10-20) BUN 47 H (7-17) mg/dL Creatinine 0.7 (0.7-1.2) MG/DL Est GFR ( Amer) > 60 Est GFR (Non-Af Amer) > 60 Random Glucose 107 H (65-105) mg/dL Calcium 7.5 L (8.6-10.4) mg/dl Phosphorus 3.7 (2.5-4.5) mg/dL Magnesium 2.1 (1.6-2.3) mg/dL Total Bilirubin 0.6 (0.2-1.3) mg/dL AST 21 (14-36) U/L ALT 25 (9-52) U/L Alkaline Phosphatase 224 H D (38-126) U/L Total Protein 5.6 L (6.3-8.3) g/dL Albumin 2.2 L (3.5-5.0) g/dL Globulin 3.4 (2.2-3.9) gm/dL Albumin/Globulin Ratio 0.6 L (1.0-2.1) Laboratory Results - last 24 hr 09/10/16 09/10/16 06:38 06:38 WBC 9.5 RBC 2.96 L Hgb 10.4 L Hct 31.3 L MCV 105.7 H MCH 35.0 H MCHC 33.1 RDW 16.1 H Plt Count 224 MPV 11.3 Neut % (Auto) 80.3 H Lymph % (Auto) 8.9 L [place] % (Auto) 8.8 Eos % (Auto) 0.6 Baso % (Auto) 1.4 Neut # 7.6 H Lymph # 0.8 L [place] # 0.8 Eos # 0.1 Baso # 0.1 Neutrophils % (Manual) 94 H Band Neutrophils % 1 Lymphocytes % (Manual) 3 L Monocytes % (Manual) 2 Platelet Estimate Normal Anisocytosis (manual) Slight Macrocytosis (manual) Slight Sodium 134 Potassium 4.4 Chloride 97 L Carbon Dioxide 32 H Anion Gap 9 L BUN 47 H Creatinine 0.7 Est GFR ( Amer) > 60 Est GFR (Non-Af Amer) > 60 Random Glucose 107 H Calcium 7.5 L Phosphorus 3.7 Magnesium 2.1 Total Bilirubin 0.6 AST 21 ALT 25 Alkaline Phosphatase 224 H D Total Protein 5.6 L Albumin 2.2 L Globulin 3.4 Albumin/Globulin Ratio 0.6 L Assessment/Plan (1) Acute respiratory failure Current Visit: Yes Status: Acute Comment: ccontinue ventilatory support Continue antibiotics Followup chest x-ray DNR/DNI and awaiting family decision (2) CHF exacerbation Current Visit: Yes Status: Resolved (3) Closed fracture of greater trochanter of left femur Current Visit: Yes Status: Acute (4) Garden grade IV closed subcapital fracture of proximal end of right femur Current Visit: Yes Status: Acute Attending/Attestation - Attestation I have personally seen and examined this patient.: Yes I have fully participated in the care of the patient.: Yes I have reviewed all pertinent clinical information: Yes Notes (Text): 09/10/16 17:01 patient seen and examined in the intensive care unit. Case discussed with house staff in the morning rounds. Remains intubated, tolerating CPAP since morning Awake alert oriented Afebrile Wants to have tracheostomy done Continue present treatment
[2016-09-10] MEDS: Fluconazole IV 200mg/100 ml NS 100 ML IVPB SCH (09:24)
--- NOTE | 2016-09-10 09:45 | CP.PCM.PN ---
Subjective - Date & Time of Evaluation Date of Evaluation: 09/10/16 Time of Evaluation: 09:44 - Subjective Subjective: Patient intubated Objective - Vital Signs/Intake and Output Vital Signs (last 24 hours): Temp Pulse Resp BP Pulse Ox 98.1 F 92 H 20 83/56 L 100 09/10/16 04:00 09/10/16 06:00 09/10/16 06:00 09/10/16 05:58 09/10/16 06:00 Intake and Output: 09/10/16 09/10/16 06:59 18:59 Intake Total 485 Output Total 300 Balance 185 - Medications Medications: Current Medications Acetaminophen (Tylenol 650mg/20.3ml Solution Ud) 650 mg PO Q6H PRN PRN Reason: temp.100.4&above;mild pain 1-3 Last Admin: 08/25/16 00:45 Dose: 650 mg Albuterol/Ipratropium (Duoneb 3 Mg/0.5 Mg (3 Ml) Ud) 3 ml INH RQ6 [facility] Last Admin: 09/10/16 07:29 Dose: 3 ml Digoxin (Lanoxin) 0.25 mg PO DAILY@1800 [facility] Last Admin: 09/09/16 17:04 Dose: Not Given Famotidine (Pepcid) 20 mg PO DAILY [facility] Last Admin: 09/10/16 09:23 Dose: 20 mg Furosemide (Lasix) 20 mg PO DAILY [facility] Last Admin: 09/10/16 09:21 Dose: Not Given Heparin Sodium (Porcine) (Heparin) 5,000 units SC Q12 [facility] Last Admin: 09/10/16 09:23 Dose: 5,000 units Tigecycline 50 mg/ Sodium (Chloride) 100 mls @ 100 mls/hr IVPB Q12H [facility] Last Admin: 09/10/16 00:00 Dose: 100 mls/hr Fluconazole (Diflucan Iv 200 Mg/100 Ml Ns) 100 mls @ 100 mls/hr IVPB DAILY [facility] Last Admin: 09/10/16 09:24 Dose: 100 mls/hr Lisinopril (Zestril) 5 mg PO DAILY [facility] Last Admin: 09/10/16 09:21 Dose: Not Given Metoprolol Tartrate (Lopressor) 25 mg PO BID [facility] Last Admin: 09/10/16 09:21 Dose: Not Given Morphine Sulfate (Morphine) 2 mg IVP Q6 PRN PRN Reason: Pain, moderate (4-7) Last Admin: 09/08/16 20:54 Dose: 2 mg - Labs Labs: 09/10/16 06:38 09/10/16 06:38 PT 10.6 SECONDS (9.7-12.2) 08/21/16 06:11 INR 1.0 08/21/16 06:11 APTT 29 SECONDS (21-34) 08/21/16 06:11 - Extremities Exam Additional comments: RLE: venodynes intact, heel boots, +DP pulse, noted edema Assessment and Plan (1) Garden grade IV closed subcapital fracture of proximal end of right femur Assessment & Plan: Events noted, back on ventilator no change in infiltrates awaiting medical optimization for OR if aggressive efforts including prosthesis for hip fracture, goal of pain control and ambulation/transfers are desired by patient and family d/w Dr. Elena, agrees with above Status: Acute (2) Degenerative joint disease of right hip Status: Chronic (3) Closed fracture of greater trochanter of left femur Assessment & Plan: non operative Status: Acute
--- NOTE | 2016-09-10 15:59 | CP.PCM.PN ---
Subjective - Date & Time of Evaluation Date of Evaluation: 09/10/16 Time of Evaluation: 10:00 - Subjective Subjective: fsiled cpap iv rx in progress Objective - Vital Signs/Intake and Output Vital Signs (last 24 hours): Temp Pulse Resp BP Pulse Ox 98.1 F 88 19 105/68 98 09/10/16 04:00 09/10/16 14:00 09/10/16 14:00 09/10/16 13:58 09/10/16 14:00 Intake and Output: 09/10/16 09/10/16 06:59 18:59 Intake Total 485 430 Output Total 300 210 Balance 185 220 - Medications Medications: Current Medications Acetaminophen (Tylenol 650mg/20.3ml Solution Ud) 650 mg PO Q6H PRN PRN Reason: temp.100.4&above;mild pain 1-3 Last Admin: 08/25/16 00:45 Dose: 650 mg Albuterol/Ipratropium (Duoneb 3 Mg/0.5 Mg (3 Ml) Ud) 3 ml INH RQ6 [facility] Last Admin: 09/10/16 13:00 Dose: 3 ml Digoxin (Lanoxin) 0.25 mg PO DAILY@1800 [facility] Last Admin: 09/09/16 17:04 Dose: Not Given Famotidine (Pepcid) 20 mg PO DAILY [facility] Last Admin: 09/10/16 09:23 Dose: 20 mg Furosemide (Lasix) 20 mg PO DAILY [facility] Last Admin: 09/10/16 09:21 Dose: Not Given Heparin Sodium (Porcine) (Heparin) 5,000 units SC Q12 [facility] Last Admin: 09/10/16 09:23 Dose: 5,000 units Tigecycline 50 mg/ Sodium (Chloride) 100 mls @ 100 mls/hr IVPB Q12H [facility] Last Admin: 09/10/16 12:27 Dose: 100 mls/hr Fluconazole (Diflucan Iv 200 Mg/100 Ml Ns) 100 mls @ 100 mls/hr IVPB DAILY [facility] Last Admin: 09/10/16 09:24 Dose: 100 mls/hr Lisinopril (Zestril) 5 mg PO DAILY [facility] Last Admin: 09/10/16 09:21 Dose: Not Given Metoprolol Tartrate (Lopressor) 25 mg PO BID [facility] Last Admin: 09/10/16 09:21 Dose: Not Given Morphine Sulfate (Morphine) 2 mg IVP Q6 PRN PRN Reason: Pain, moderate (4-7) Last Admin: 09/08/16 20:54 Dose: 2 mg - Labs Labs: 09/10/16 06:38 09/10/16 06:38 PT 10.6 SECONDS (9.7-12.2) 08/21/16 06:11 INR 1.0 08/21/16 06:11 APTT 29 SECONDS (21-34) 08/21/16 06:11 - Constitutional Appears: Non-toxic, Cachectic, Chronically Ill - Head Exam Head Exam: NORMOCEPHALIC - Eye Exam Eye Exam: PERRL. absent: Scleral icterus - ENT Exam ENT Exam: Mucous Membranes Dry - Neck Exam Neck Exam: absent: Lymphadenopathy - Respiratory Exam Respiratory Exam: Decreased Breath Sounds, Rhonchi - Cardiovascular Exam Cardiovascular Exam: REGULAR RHYTHM, +S1, +S2 - GI/Abdominal Exam GI & Abdominal Exam: Distended, Soft. absent: Tenderness Assessment and Plan (1) Acute respiratory failure Status: Acute (2) Closed fracture of greater trochanter of left femur Status: Acute (3) Contusion of head Status: Acute (4) Fall Status: Acute (5) Garden grade IV closed subcapital fracture of proximal end of right femur Status: Acute (6) Pelvic fracture Status: Acute (7) Pleural effusion due to CHF (congestive heart failure) Status: Acute (8) Right middle lobe pneumonia Status: Acute (9) CHF (NYHA class III, ACC/AHA stage C) Status: Chronic (10) Degenerative joint disease of right hip Status: Chronic (11) Multifocal atrial tachycardia Status: Chronic (12) Arrhythmia Status: Resolved (13) CHF exacerbation Status: Resolved (14) Dehydration Status: Resolved (15) Pleural effusion, right Status: Resolved (16) Sepsis Status: Resolved - Assessment and Plan (Free Text) Assessment: cont iv tygacil
[2016-09-10] MEDS: Digoxin 250 mcg (0.25 mg) Tab PO SCH (18:26)
--- NOTE | 2016-09-10 21:19 | CP.PCM.PN ---
Subjective - Date & Time of Evaluation Date of Evaluation: 09/10/16 Time of Evaluation: 18:30 - Subjective Subjective: Patient on respirator. Alert, responding. Needs a tracheostomy. Objective - Vital Signs/Intake and Output Vital Signs (last 24 hours): Temp Pulse Resp BP Pulse Ox 98.7 F 92 H 12 127/65 97 09/10/16 20:00 09/10/16 20:00 09/10/16 20:00 09/10/16 19:59 09/10/16 20:00 Intake and Output: 09/10/16 09/11/16 18:59 06:59 Intake Total 570 35 Output Total 310 100 Balance 260 -65 - Medications Medications: Current Medications Acetaminophen (Tylenol 650mg/20.3ml Solution Ud) 650 mg PO Q6H PRN PRN Reason: temp.100.4&above;mild pain 1-3 Last Admin: 08/25/16 00:45 Dose: 650 mg Albuterol/Ipratropium (Duoneb 3 Mg/0.5 Mg (3 Ml) Ud) 3 ml INH RQ6 [facility] Last Admin: 09/10/16 20:01 Dose: 3 ml Digoxin (Lanoxin) 0.25 mg PO DAILY@1800 [facility] Last Admin: 09/10/16 18:26 Dose: Not Given Famotidine (Pepcid) 20 mg PO DAILY [facility] Last Admin: 09/10/16 09:23 Dose: 20 mg Furosemide (Lasix) 20 mg PO DAILY [facility] Last Admin: 09/10/16 09:21 Dose: Not Given Heparin Sodium (Porcine) (Heparin) 5,000 units SC Q12 [facility] Last Admin: 09/10/16 09:23 Dose: 5,000 units Tigecycline 50 mg/ Sodium (Chloride) 100 mls @ 100 mls/hr IVPB Q12H [facility] Last Admin: 09/10/16 12:27 Dose: 100 mls/hr Fluconazole (Diflucan Iv 200 Mg/100 Ml Ns) 100 mls @ 100 mls/hr IVPB DAILY [facility] Last Admin: 09/10/16 09:24 Dose: 100 mls/hr Lisinopril (Zestril) 5 mg PO DAILY [facility] Last Admin: 09/10/16 09:21 Dose: Not Given Metoprolol Tartrate (Lopressor) 25 mg PO BID [facility] Last Admin: 09/10/16 18:26 Dose: Not Given Morphine Sulfate (Morphine) 2 mg IVP Q6 PRN PRN Reason: Pain, moderate (4-7) Last Admin: 09/08/16 20:54 Dose: 2 mg - Labs Labs: 09/10/16 06:38 09/10/16 06:38 PT 10.6 SECONDS (9.7-12.2) 08/21/16 06:11 INR 1.0 08/21/16 06:11 APTT 29 SECONDS (21-34) 08/21/16 06:11 - Constitutional Appears: Chronically Ill - Head Exam Head Exam: NORMAL INSPECTION - Eye Exam Eye Exam: Normal appearance - ENT Exam ENT Exam: Normal Exam - Neck Exam Neck Exam: Normal Inspection - Respiratory Exam Additional comments: Rhonchi heard at both bases. - Cardiovascular Exam Cardiovascular Exam: Irregular Rhythm - GI/Abdominal Exam GI & Abdominal Exam: Soft, Normal Bowel Sounds - Rectal Exam Rectal Exam: Deferred - Extremities Exam Additional comments: Mild edema of the lower extremities. - Back Exam Back Exam: NORMAL INSPECTION - Neurological Exam Neurological Exam: Alert, Awake - Psychiatric Exam Psychiatric exam: Anxious - Skin Skin Exam: Dry, Intact Assessment and Plan (1) Closed fracture of greater trochanter of left femur Status: Acute (2) Dehydration Status: Resolved (3) Sepsis Status: Resolved (4) Fall Status: Acute (5) Arrhythmia Status: Resolved (6) Contusion of head Status: Acute (7) Garden grade IV closed subcapital fracture of proximal end of right femur Status: Acute (8) CHF exacerbation Status: Resolved (9) Acute respiratory failure Status: Acute (10) Pleural effusion, right Status: Resolved (11) Right middle lobe pneumonia Assessment & Plan: To continue IV antibiotics. Status: Acute (12) VRE (vancomycin resistant enterococcus) culture positive Status: Acute
[2016-09-11] MEDS: Albuterol-Ipratrop 3 mg / 0.5 (3 ml) UD INH SCH ×4 (01:23→20:21)
[2016-09-11 06:47] LABS: BASO # 0.2 K/uL (0.0-0.2); BASO % 2.2 % (0.0-2.0); EOS # 0.1 K/uL (0.0-0.7); EOS % 1.1 % (0.0-4.0); HEMOGLOBIN 9.7 g/dL (11.0-16.0); LYMPH % 11.2 % (20.0-40.0); MEAN CELL VOLUME 106.1 fL (81.0-99.0); MEAN CORPUSCULAR HEMOGLOBIN 34.5 pg (27.0-31.0); MEAN CORPUSCULAR HGB CONC 32.5 g/dL (33.0-37.0); MONO # 0.9 K/uL (0.0-0.8); NEUT # 6.6 K/uL (1.8-7.0); NEUT % 75.5 % (50.0-75.0); RBC 2.82 Mil/uL (3.80-5.20); WHITE BLOOD COUNT 8.8 K/uL (4.8-10.8)
[2016-09-11 07:15] LABS: ALB/GLOB RATIO 0.6 (1.0-2.1); ALT/SGPT 26 U/L (9-52); AST/SGOT 24 U/L (14-36); BLOOD UREA NITROGEN 48 mg/dL (7-17); GFR AFRICAN-AMERICAN > 60; GFR NON-AFRICAN AMERICAN > 60
[2016-09-11 07:16] LABS: CALCIUM 7.2 mg/dl (8.6-10.4)
[2016-09-11 08:21] LABS: URINE BACTERIA RARE (<OCC); URINE BILIRUBIN NEGATIVE (NEGATIVE); URINE BLOOD NEGATIVE (NEGATIVE); URINE CLARITY Hazy (Clear); URINE COLOR Yellow (YELLOW); URINE GLUCOSE (UA) NORMAL (Normal); URINE LEUKOCYTE ESTERASE 2+ Leu/uL (Negative); URINE NITRATE NEGATIVE (NEGATIVE); URINE PROTEIN 1+ mg/dL (NEGATIVE); URINE UROBILINOGEN NORMAL mg/dL (0.2-1.0)
[2016-09-11] MEDS: Fluconazole IV 200mg/100 ml NS 100 ML IVPB SCH (09:45)
--- NOTE | 2016-09-11 10:48 | CP.CCUPN ---
<Kiran Xavier Wai - Last Filed: 09/11/16 14:24> CCU Subjective - Physician Review Events Since Last Encounter (Free Text): 09/11/16 13:55 Pt S&E. JESS. Awaiting family to arrive to discuss plans of care. Pt remains on ventilator, awake and alert. Denies pain. Again responds that she would want a tracheostomy placed. Remains on vent 18/6/50% VSS afebrile labs reviewed, d/w house staff and [employer] Clerk Critical Care Time Spent (in minutes): 25 CCU Objective - Vital Signs / Intake & Output Vital Signs (Last 4 hours): Vital Signs Temp Pulse Resp BP Pulse Ox 09/11/16 10:00 73 14 129/70 09/11/16 09:45 112/55 L 09/11/16 09:00 56 L 18 100 09/11/16 08:58 55 L 18 112/55 L 100 09/11/16 08:00 98 F 62 18 100 09/11/16 07:58 69 13 114/66 100 09/11/16 07:00 58 L 18 100 09/11/16 06:58 58 L 18 121/61 100 Intake and Output (Last 8hrs): Intake & Output 09/10/16 09/11/16 09/11/16 22:59 06:59 14:59 Intake Total 245 380 100 Output Total 450 315 85 Balance -205 65 15 Intake: Intake, IV Amount 0 100 Right PICC 0 100 Tube Feeding 245 280 100 Output: Urine 450 315 85 Urethral (Martinez) 450 315 85 Stool 0 Emesis 0 - Physical Exam Head: Positive for: Normocephalic, Ecchymosis, Other (Contusions over left side of face continue to improve). Negative for: Atraumatic Pupils: Positive for: PERRL Extroacular Muscles: Positive for: EOMI Conjunctiva: Positive for: Normal. Negative for: Injected, Icteric Mouth: Positive for: Other (ET tube in place) Nose (External): Positive for: Other (NGT in place- tolerating feeds) Neck: Negative for: JVD, Bruit Respiratory/Chest: Positive for: Good Air Exchange, Decreased Breath Sounds ( bibasilar R > L), Other (vent sounds heard throughout). Negative for: Clear to Auscultation, Respiratory Distress, Accessory Muscle Use, Wheezes, Retracting, Rhonchi Cardiovascular: Positive for: Regular Rate and Rhythm, Normal S1, S2, Peripheal Pulses Present. Negative for: Murmurs, Irregular Rhythm Abdomen: Positive for: Normal Bowel Sounds. Negative for: Tenderness, Distention, Peritoneal Signs, Rebound, Guarding Upper Extremity: Positive for: Normal Inspection, NORMAL PULSES, Other (mittens in place b/l). Negative for: Edema Lower Extremity: Positive for: NORMAL PULSES, Deformity (right leg shortened and externally rotated ), Other (grimaces when b/l hips palpated, R>L; offloading boots and SCDs in place and secure). Negative for: Normal Inspection , Edema, Normal ROM Neurological: Positive for: Other (alert and responsive). Negative for: Speech Normal Skin: Positive for: Warm, Dry, Normal Color, Other (b/l ecchymosis on face noted ). Negative for: Rashes Psychiatric: Positive for: Alert (responds to name ) - Medications Active Medications: Active Medications Generic Name Dose Route Start Last Admin Trade Name Freq PRN Reason Stop Dose Admin Acetaminophen 650 mg 08/14/16 23:50 08/25/16 00:45 Tylenol 650mg/20.3ml Solution Ud PO 650 mg Q6H PRN Administration temp.100.4&above;mild pain 1-3 Albuterol/Ipratropium 3 ml 08/16/16 14:00 09/11/16 07:46 Duoneb 3 Mg/0.5 Mg (3 Ml) Ud INH 3 ml RQ6 [place] Administration Digoxin 0.25 mg 08/30/16 18:00 09/10/16 18:26 Lanoxin PO Not Given DAILY@1800 [place] Famotidine 20 mg 09/06/16 10:00 09/11/16 09:45 Pepcid PO 20 mg DAILY [place] Administration Furosemide 20 mg 09/05/16 10:00 09/11/16 09:45 Lasix PO 20 mg DAILY [place] Administration Heparin Sodium (Porcine) 5,000 units 09/03/16 10:00 09/11/16 09:45 Heparin SC 5,000 units Q12 [place] Administration Tigecycline 50 mg/ Sodium 100 mls @ 100 mls/hr 09/01/16 12:00 09/10/16 23:00 Chloride IVPB 100 mls/hr Q12H [place] Administration Fluconazole 100 mls @ 100 mls/hr 09/03/16 11:00 09/11/16 09:45 Diflucan Iv 200 Mg/100 Ml Ns IVPB 100 mls/hr DAILY [place] Administration Lisinopril 5 mg 08/17/16 10:00 09/11/16 09:45 Zestril PO 5 mg DAILY [place] Administration Metoprolol Tartrate 25 mg 08/12/16 18:00 09/11/16 09:46 Lopressor PO Not Given BID [place] - Patient Studies Lab Studies: Lab Studies 09/11/16 09/11/16 09/11/16 Range/Units 07:08 06:34 06:34 WBC 8.8 (4.8-10.8) K/uL RBC 2.82 L (3.80-5.20) Mil/uL Hgb 9.7 L (11.0-16.0) g/dL Hct 30.0 L (34.0-47.0) % MCV 106.1 H (81.0-99.0) fL MCH 34.5 H (27.0-31.0) pg MCHC 32.5 L (33.0-37.0) g/dL RDW 16.0 H (11.5-14.5) % Plt Count 205 (130-400) K/uL MPV 12.0 H (7.2-11.7) fL Neut % (Auto) 75.5 H (50.0-75.0) % Lymph % (Auto) 11.2 L (20.0-40.0) % [place] % (Auto) 10.0 (0.0-10.0) % Eos % (Auto) 1.1 (0.0-4.0) % Baso % (Auto) 2.2 H (0.0-2.0) % Neut # 6.6 (1.8-7.0) K/uL Lymph # 1.0 (1.0-4.3) K/uL [place] # 0.9 H (0.0-0.8) K/uL Eos # 0.1 (0.0-0.7) K/uL Baso # 0.2 (0.0-0.2) K/uL Sodium 136 (132-148) mmol/L Potassium 4.3 (3.6-5.2) mmol/L Chloride 100 (98-107) mmol/L Carbon Dioxide 31 H (22-30) mmol/L Anion Gap 9 L (10-20) BUN 48 H (7-17) mg/dL Creatinine 0.6 L (0.7-1.2) MG/DL Est GFR ( Amer) > 60 Est GFR (Non-Af Amer) > 60 Random Glucose 84 (65-105) mg/dL Calcium 7.2 L (8.6-10.4) mg/dl Phosphorus 2.6 (2.5-4.5) mg/dL Magnesium 2.0 (1.6-2.3) mg/dL Total Bilirubin 0.7 (0.2-1.3) mg/dL AST 24 (14-36) U/L ALT 26 (9-52) U/L Alkaline Phosphatase 231 H (38-126) U/L Total Protein 5.3 L (6.3-8.3) g/dL Albumin 2.0 L (3.5-5.0) g/dL Globulin 3.3 (2.2-3.9) gm/dL Albumin/Globulin Ratio 0.6 L (1.0-2.1) Urine Color Yellow (YELLOW) Urine Clarity Hazy (Clear) Urine pH 8.0 (5.0-8.0) Ur Specific [place] 1.018 (1.003-1.030) Urine Protein 1+ H (NEGATIVE) mg/dL Urine Glucose (UA) Normal (Normal) mg/dL Urine Ketones Negative (NEGATIVE) mg/dL Urine Blood Negative (NEGATIVE) Urine Nitrate Negative (NEGATIVE) Urine Bilirubin Negative (NEGATIVE) Urine Urobilinogen Normal (0.2-1.0) mg/dL Ur Leukocyte Esterase 2+ H (Negative) David/uL Urine WBC (Auto) 106 H (0-5) /hpf Urine RBC (Auto) 9 H (0-3) /hpf Urine Bacteria Rare (<OCC) Laboratory Results - last 24 hr 09/11/16 09/11/16 09/11/16 06:34 06:34 07:08 WBC 8.8 RBC 2.82 L Hgb 9.7 L Hct 30.0 L MCV 106.1 H MCH 34.5 H MCHC 32.5 L RDW 16.0 H Plt Count 205 MPV 12.0 H Neut % (Auto) 75.5 H Lymph % (Auto) 11.2 L [place] % (Auto) 10.0 Eos % (Auto) 1.1 Baso % (Auto) 2.2 H Neut # 6.6 Lymph # 1.0 [place] # 0.9 H Eos # 0.1 Baso # 0.2 Sodium 136 Potassium 4.3 Chloride 100 Carbon Dioxide 31 H Anion Gap 9 L BUN 48 H Creatinine 0.6 L Est GFR ( Amer) > 60 Est GFR (Non-Af Amer) > 60 Random Glucose 84 Calcium 7.2 L Phosphorus 2.6 Magnesium 2.0 Total Bilirubin 0.7 AST 24 ALT 26 Alkaline Phosphatase 231 H Total Protein 5.3 L Albumin 2.0 L Globulin 3.3 Albumin/Globulin Ratio 0.6 L Urine Color Yellow Urine Clarity Hazy Urine pH 8.0 Ur Specific [place] 1.018 Urine Protein 1+ H Urine Glucose (UA) Normal Urine Ketones Negative Urine Blood Negative Urine Nitrate Negative Urine Bilirubin Negative Urine Urobilinogen Normal Ur Leukocyte Esterase 2+ H Urine WBC (Auto) 106 H Urine RBC (Auto) 9 H Urine Bacteria Rare Review of Systems - Review of Systems Systems not reviewed;Unavailable: Intubated Assessment/Plan (1) Arrhythmia Assessment and plan: Acute on chronic resp failure, on ventilator Possible HCAP/vent dependent Cont Tigecycline Prognosis very poor High risk for orthopaedic surgery DNR/DNI awaiting family decision as per trach vs terminal extubation Current Visit: Yes Status: Resolved (2) Closed fracture of greater trochanter of left femur Assessment and plan: bilateral hip fracture s/p recent fall currently having significant weakness and associated pain - currently poor surgical candidate - high risk for mortality/morbidity underlying neurological condition cannot be ruled out Pt at high risk for DVT/PE - will cont HSQ Q12H Current Visit: Yes Status: Acute (3) Pneumonia Assessment and plan: will cont abx wean down FiO2 and trial of CPAP daily f/u sputum culture repeat Dig level ordered Current Visit: Yes Status: Acute - Assessment and Plan (Free Text) Plan: awaiting family decision re: trach vs extubation will f/u digoxin levels d/w Dr Gilmore and house staff Kiran Xavier, PGY3 <Efra Gilmore - Last Filed: 09/11/16 17:44> CCU Objective - Vital Signs / Intake & Output Vital Signs (Last 4 hours): Vital Signs Temp Pulse Resp BP Pulse Ox 09/11/16 17:00 59 L 18 100 09/11/16 16:58 59 L 14 131/56 L 100 09/11/16 16:00 97.6 F 74 13 09/11/16 15:58 62 14 122/63 09/11/16 15:00 64 18 100 09/11/16 14:58 63 17 112/59 L 100 09/11/16 14:00 69 15 100 09/11/16 13:58 65 15 127/58 L 100 Intake and Output (Last 8hrs): Intake & Output 09/11/16 09/11/16 09/11/16 06:59 14:59 22:59 Intake Total 380 480 70 Output Total 315 270 40 Balance 65 210 30 Intake: Intake, IV Amount 100 200 Right PICC 100 200 Tube Feeding 280 280 70 Output: Urine 315 270 40 Urethral (Martinez) 315 270 40 - Medications Active Medications: Active Medications Generic Name Dose Route Start Last Admin Trade Name Freq PRN Reason Stop Dose Admin Acetaminophen 650 mg 08/14/16 23:50 08/25/16 00:45 Tylenol 650mg/20.3ml Solution Ud PO 650 mg Q6H PRN Administration temp.100.4&above;mild pain 1-3 Albuterol/Ipratropium 3 ml 08/16/16 14:00 09/11/16 13:00 Duoneb 3 Mg/0.5 Mg (3 Ml) Ud INH 3 ml RQ6 [place] Administration Digoxin 0.25 mg 08/30/16 18:00 09/10/16 18:26 Lanoxin PO Not Given DAILY@1800 [place] Famotidine 20 mg 09/06/16 10:00 09/11/16 09:45 Pepcid PO 20 mg DAILY [place] Administration Furosemide 20 mg 09/05/16 10:00 09/11/16 09:45 Lasix PO 20 mg DAILY [place] Administration Heparin Sodium (Porcine) 5,000 units 09/03/16 10:00 09/11/16 09:45 Heparin SC 5,000 units Q12 [place] Administration Tigecycline 50 mg/ Sodium 100 mls @ 100 mls/hr 09/01/16 12:00 09/11/16 11:52 Chloride IVPB 100 mls/hr Q12H [place] Administration Fluconazole 100 mls @ 100 mls/hr 09/03/16 11:00 09/11/16 09:45 Diflucan Iv 200 Mg/100 Ml Ns IVPB 100 mls/hr DAILY [place] Administration Lisinopril 5 mg 08/17/16 10:00 09/11/16 09:45 Zestril PO 5 mg DAILY [place] Administration Metoprolol Tartrate 25 mg 08/12/16 18:00 09/11/16 09:46 Lopressor PO Not Given BID [place] - Patient Studies Lab Studies: Lab Studies 09/11/16 09/11/16 09/11/16 Range/Units 10:50 07:08 06:34 WBC (4.8-10.8) K/uL RBC (3.80-5.20) Mil/uL Hgb (11.0-16.0) g/dL Hct (34.0-47.0) % MCV (81.0-99.0) fL MCH (27.0-31.0) pg MCHC (33.0-37.0) g/dL RDW (11.5-14.5) % Plt Count (130-400) K/uL MPV (7.2-11.7) fL Neut % (Auto) (50.0-75.0) % Lymph % (Auto) (20.0-40.0) % [place] % (Auto) (0.0-10.0) % Eos % (Auto) (0.0-4.0) % Baso % (Auto) (0.0-2.0) % Neut # (1.8-7.0) K/uL Lymph # (1.0-4.3) K/uL [place] # (0.0-0.8) K/uL Eos # (0.0-0.7) K/uL Baso # (0.0-0.2) K/uL Sodium 136 (132-148) mmol/L Potassium 4.3 (3.6-5.2) mmol/L Chloride 100 (98-107) mmol/L Carbon Dioxide 31 H (22-30) mmol/L Anion Gap 9 L (10-20) BUN 48 H (7-17) mg/dL Creatinine 0.6 L (0.7-1.2) MG/DL Est GFR ( Amer) > 60 Est GFR (Non-Af Amer) > 60 Random Glucose 84 (65-105) mg/dL Calcium 7.2 L (8.6-10.4) mg/dl Phosphorus 2.6 (2.5-4.5) mg/dL Magnesium 2.0 (1.6-2.3) mg/dL Total Bilirubin 0.7 (0.2-1.3) mg/dL AST 24 (14-36) U/L ALT 26 (9-52) U/L Alkaline Phosphatase 231 H (38-126) U/L Total Protein 5.3 L (6.3-8.3) g/dL Albumin 2.0 L (3.5-5.0) g/dL Globulin 3.3 (2.2-3.9) gm/dL Albumin/Globulin Ratio 0.6 L (1.0-2.1) Urine Color Yellow (YELLOW) Urine Clarity Hazy (Clear) Urine pH 8.0 (5.0-8.0) Ur Specific [place] 1.018 (1.003-1.030) Urine Protein 1+ H (NEGATIVE) mg/dL Urine Glucose (UA) Normal (Normal) mg/dL Urine Ketones Negative (NEGATIVE) mg/dL Urine Blood Negative (NEGATIVE) Urine Nitrate Negative (NEGATIVE) Urine Bilirubin Negative (NEGATIVE) Urine Urobilinogen Normal (0.2-1.0) mg/dL Ur Leukocyte Esterase 2+ H (Negative) David/uL Urine WBC (Auto) 106 H (0-5) /hpf Urine RBC (Auto) 9 H (0-3) /hpf Urine Bacteria Rare (<OCC) Digoxin 0.8 (0.8-2.0) ng/mL //17 Range/Units 06:34 WBC 8.8 (4.8-10.8) K/uL RBC 2.82 L (3.80-5.20) Mil/uL Hgb 9.7 L (11.0-16.0) g/dL Hct 30.0 L (34.0-47.0) % MCV 106.1 H (81.0-99.0) fL MCH 34.5 H (27.0-31.0) pg MCHC 32.5 L (33.0-37.0) g/dL RDW 16.0 H (11.5-14.5) % Plt Count 205 (130-400) K/uL MPV 12.0 H (7.2-11.7) fL Neut % (Auto) 75.5 H (50.0-75.0) % Lymph % (Auto) 11.2 L (20.0-40.0) % [place] % (Auto) 10.0 (0.0-10.0) % Eos % (Auto) 1.1 (0.0-4.0) % Baso % (Auto) 2.2 H (0.0-2.0) % Neut # 6.6 (1.8-7.0) K/uL Lymph # 1.0 (1.0-4.3) K/uL [place] # 0.9 H (0.0-0.8) K/uL Eos # 0.1 (0.0-0.7) K/uL Baso # 0.2 (0.0-0.2) K/uL Sodium (132-148) mmol/L Potassium (3.6-5.2) mmol/L Chloride (98-107) mmol/L Carbon Dioxide (22-30) mmol/L Anion Gap (10-20) BUN (7-17) mg/dL Creatinine (0.7-1.2) MG/DL Est GFR ( Amer) Est GFR (Non-Af Amer) Random Glucose (65-105) mg/dL Calcium (8.6-10.4) mg/dl Phosphorus (2.5-4.5) mg/dL Magnesium (1.6-2.3) mg/dL Total Bilirubin (0.2-1.3) mg/dL AST (14-36) U/L ALT (9-52) U/L Alkaline Phosphatase (38-126) U/L Total Protein (6.3-8.3) g/dL Albumin (3.5-5.0) g/dL Globulin (2.2-3.9) gm/dL Albumin/Globulin Ratio (1.0-2.1) Urine Color (YELLOW) Urine Clarity (Clear) Urine pH (5.0-8.0) Ur Specific [place] (1.003-1.030) Urine Protein (NEGATIVE) mg/dL Urine Glucose (UA) (Normal) mg/dL Urine Ketones (NEGATIVE) mg/dL Urine Blood (NEGATIVE) Urine Nitrate (NEGATIVE) Urine Bilirubin (NEGATIVE) Urine Urobilinogen (0.2-1.0) mg/dL Ur Leukocyte Esterase (Negative) David/uL Urine WBC (Auto) (0-5) /hpf Urine RBC (Auto) (0-3) /hpf Urine Bacteria (<OCC) Digoxin (0.8-2.0) ng/mL Laboratory Results - last 24 hr 09/11/16 09/11/16 09/11/16 06:34 06:34 07:08 WBC 8.8 RBC 2.82 L Hgb 9.7 L Hct 30.0 L MCV 106.1 H MCH 34.5 H MCHC 32.5 L RDW 16.0 H Plt Count 205 MPV 12.0 H Neut % (Auto) 75.5 H Lymph % (Auto) 11.2 L [place] % (Auto) 10.0 Eos % (Auto) 1.1 Baso % (Auto) 2.2 H Neut # 6.6 Lymph # 1.0 [place] # 0.9 H Eos # 0.1 Baso # 0.2 Sodium 136 Potassium 4.3 Chloride 100 Carbon Dioxide 31 H Anion Gap 9 L BUN 48 H Creatinine 0.6 L Est GFR ( Amer) > 60 Est GFR (Non-Af Amer) > 60 Random Glucose 84 Calcium 7.2 L Phosphorus 2.6 Magnesium 2.0 Total Bilirubin 0.7 AST 24 ALT 26 Alkaline Phosphatase 231 H Total Protein 5.3 L Albumin 2.0 L Globulin 3.3 Albumin/Globulin Ratio 0.6 L Urine Color Yellow Urine Clarity Hazy Urine pH 8.0 Ur Specific [place] 1.018 Urine Protein 1+ H Urine Glucose (UA) Normal Urine Ketones Negative Urine Blood Negative Urine Nitrate Negative Urine Bilirubin Negative Urine Urobilinogen Normal Ur Leukocyte Esterase 2+ H Urine WBC (Auto) 106 H Urine RBC (Auto) 9 H Urine Bacteria Rare Digoxin 09/11/16 10:50 WBC RBC Hgb Hct MCV MCH MCHC RDW Plt Count MPV Neut % (Auto) Lymph % (Auto) [place] % (Auto) Eos % (Auto) Baso % (Auto) Neut # Lymph # [place] # Eos # Baso # Sodium Potassium Chloride Carbon Dioxide Anion Gap BUN Creatinine Est GFR ( Amer) Est GFR (Non-Af Amer) Random Glucose Calcium Phosphorus Magnesium Total Bilirubin AST ALT Alkaline Phosphatase Total Protein Albumin Globulin Albumin/Globulin Ratio Urine Color Urine Clarity Urine pH Ur Specific [place] Urine Protein Urine Glucose (UA) Urine Ketones Urine Blood Urine Nitrate Urine Bilirubin Urine Urobilinogen Ur Leukocyte Esterase Urine WBC (Auto) Urine RBC (Auto) Urine Bacteria Digoxin 0.8 Assessment/Plan (1) Acute respiratory failure Current Visit: Yes Status: Acute Comment: ccontinue ventilatory support Continue antibiotics Followup chest x-ray DNR/DNI and awaiting family decision (2) Closed fracture of greater trochanter of left femur Current Visit: Yes Status: Acute (3) Right middle lobe pneumonia Current Visit: Yes Status: Acute (4) Status post thoracentesis Current Visit: Yes Status: Acute (5) VRE (vancomycin resistant enterococcus) culture positive Current Visit: Yes Status: Acute Attending/Attestation - Attestation I have personally seen and examined this patient.: Yes I have fully participated in the care of the patient.: Yes I have reviewed all pertinent clinical information: Yes Notes (Text): 09/11/16 17:44 Today: September The Patient was seen and examined at the bedside, Medical records reviewed, all clinical/lab/hemodynamic/radiographic data were reviewed and management issues were discussed and formulated, Events reviewed Pain issues, skin care, head of the bed elevation, glycemic control were addressed. Agree with above treatment plans as transcribed in Dr. Xavier note
--- NOTE | 2016-09-11 13:26 | CP.PCM.PN ---
Subjective - Date & Time of Evaluation Date of Evaluation: 09/11/16 Time of Evaluation: 13:15 - Subjective Subjective: Intubated, less awake today Objective - Vital Signs/Intake and Output Vital Signs (last 24 hours): Temp Pulse Resp BP Pulse Ox 98 F 65 18 107/58 L 100 09/11/16 08:00 09/11/16 11:00 09/11/16 11:00 09/11/16 10:58 09/11/16 11:00 Intake and Output: 09/11/16 09/11/16 06:59 18:59 Intake Total 485 265 Output Total 665 205 Balance -180 60 - Medications Medications: Current Medications Acetaminophen (Tylenol 650mg/20.3ml Solution Ud) 650 mg PO Q6H PRN PRN Reason: temp.100.4&above;mild pain 1-3 Last Admin: 08/25/16 00:45 Dose: 650 mg Albuterol/Ipratropium (Duoneb 3 Mg/0.5 Mg (3 Ml) Ud) 3 ml INH RQ6 [facility] Last Admin: 09/11/16 13:00 Dose: 3 ml Digoxin (Lanoxin) 0.25 mg PO DAILY@1800 [facility] Last Admin: 09/10/16 18:26 Dose: Not Given Famotidine (Pepcid) 20 mg PO DAILY [facility] Last Admin: 09/11/16 09:45 Dose: 20 mg Furosemide (Lasix) 20 mg PO DAILY [facility] Last Admin: 09/11/16 09:45 Dose: 20 mg Heparin Sodium (Porcine) (Heparin) 5,000 units SC Q12 [facility] Last Admin: 09/11/16 09:45 Dose: 5,000 units Tigecycline 50 mg/ Sodium (Chloride) 100 mls @ 100 mls/hr IVPB Q12H [facility] Last Admin: 09/11/16 11:52 Dose: 100 mls/hr Fluconazole (Diflucan Iv 200 Mg/100 Ml Ns) 100 mls @ 100 mls/hr IVPB DAILY [facility] Last Admin: 09/11/16 09:45 Dose: 100 mls/hr Lisinopril (Zestril) 5 mg PO DAILY [facility] Last Admin: 09/11/16 09:45 Dose: 5 mg Metoprolol Tartrate (Lopressor) 25 mg PO BID [facility] Last Admin: 09/11/16 09:46 Dose: Not Given - Labs Labs: 09/11/16 06:34 09/11/16 06:34 PT 10.6 SECONDS (9.7-12.2) 08/21/16 06:11 INR 1.0 08/21/16 06:11 APTT 29 SECONDS (21-34) 08/21/16 06:11 - Extremities Exam Additional comments: RLE: venodynes intact, +DP pulses, heel protection boots intact Assessment and Plan (1) Garden grade IV closed subcapital fracture of proximal end of right femur Assessment & Plan: Events noted, back on ventilator, possible trach pending family discussion awaiting medical optimization for OR if aggressive efforts including prosthesis for hip fracture, goal of pain control and ambulation/transfers are desired by patient and family. d/w Dr. Elena, agrees with above Status: Acute (2) Degenerative joint disease of right hip Status: Chronic (3) Closed fracture of greater trochanter of left femur Assessment & Plan: non operative Status: Acute
[2016-09-11] MEDS: Digoxin 250 mcg (0.25 mg) Tab PO SCH (17:51)
[2016-09-12] MEDS: Albuterol-Ipratrop 3 mg / 0.5 (3 ml) UD INH SCH ×4 (01:18→20:00)
[2016-09-12 07:02] LABS: BASO # 0.1 K/uL (0.0-0.2); EOS # 0.1 K/uL (0.0-0.7); HEMOGLOBIN 9.6 g/dL (11.0-16.0); LYMPH % 13.7 % (20.0-40.0); MEAN CELL VOLUME 106.2 fL (81.0-99.0); MEAN CORPUSCULAR HEMOGLOBIN 34.7 pg (27.0-31.0); MEAN CORPUSCULAR HGB CONC 32.6 g/dL (33.0-37.0); MONO # 0.7 K/uL (0.0-0.8); MONO % 9.8 % (0.0-10.0); NEUT # 5.2 K/uL (1.8-7.0); NEUT % 72.5 % (50.0-75.0); NRBC % 0.3 % (0.0-2.0); RBC 2.78 Mil/uL (3.80-5.20); RED CELL DISTRIBUTION WIDTH 16.1 % (11.5-14.5); WHITE BLOOD COUNT 7.2 K/uL (4.8-10.8)
[2016-09-12 07:30] LABS: GFR AFRICAN-AMERICAN > 60; GFR NON-AFRICAN AMERICAN > 60
[2016-09-12 07:31] LABS: ALB/GLOB RATIO 0.6 (1.0-2.1); ALT/SGPT 25 U/L (9-52); AST/SGOT 23 U/L (14-36); BLOOD UREA NITROGEN 44 mg/dL (7-17)
[2016-09-12 07:32] LABS: CALCIUM 7.6 mg/dl (8.6-10.4); MAGNESIUM 2.2 mg/dL (1.6-2.3)
--- NOTE | 2016-09-12 08:51 | CP.CCUPN ---
<Kiran Xavier - Last Filed: 09/12/16 09:39> CCU Subjective - Physician Review Events Since Last Encounter (Free Text): 09/12/16 08:48 Pt S&E. NAEO. Lopressor held due to bradycardia. Pt alert and awake. Responds to questions. Plan is for family meeting tomorrow at 1PM. Critical Care Time Spent (in minutes): 35 CCU Objective - Vital Signs / Intake & Output Vital Signs (Last 4 hours): Vital Signs Pulse Resp BP Pulse Ox 09/12/16 07:00 55 L 18 100 09/12/16 06:58 60 14 116/58 L 100 09/12/16 06:00 57 L 18 100 09/12/16 05:58 59 L 18 116/61 100 09/12/16 05:00 51 L 19 100 09/12/16 04:58 55 L 17 140/62 100 Intake and Output (Last 8hrs): Intake & Output 09/11/16 09/12/16 09/12/16 22:59 06:59 14:59 Intake Total 280 380 35 Output Total 205 305 75 Balance 75 75 -40 Intake: Intake, IV Amount 100 Right PICC 100 Tube Feeding 280 280 35 Output: Urine 205 305 75 Urethral (Martinez) 205 305 75 Other: # Bowel Movements 1 - Physical Exam Head: Positive for: Normocephalic, Ecchymosis. Negative for: Atraumatic Pupils: Positive for: PERRL Extroacular Muscles: Positive for: EOMI Conjunctiva: Positive for: Normal. Negative for: Injected, Icteric Mouth: Positive for: Other (ET tube in place) Nose (External): Positive for: Other (NGT in place- tolerating feeds) Neck: Negative for: JVD, Bruit Respiratory/Chest: Positive for: Good Air Exchange, Decreased Breath Sounds ( bibasilar R > L), Other (vent sounds heard throughout). Negative for: Clear to Auscultation, Respiratory Distress, Accessory Muscle Use, Wheezes, Retracting, Rhonchi Cardiovascular: Positive for: Regular Rate and Rhythm, Normal S1, S2, Peripheal Pulses Present. Negative for: Murmurs, Irregular Rhythm Abdomen: Positive for: Normal Bowel Sounds. Negative for: Tenderness, Distention, Peritoneal Signs, Rebound, Guarding Upper Extremity: Positive for: Normal Inspection, NORMAL PULSES, Other (mittens in place b/l). Negative for: Edema Lower Extremity: Positive for: NORMAL PULSES, Deformity (right leg shortened and externally rotated ), Other (pain to b/l hips on palpation, SCDs in place). Negative for: Normal Inspection, Edema, Normal ROM Neurological: Positive for: Other (alert and responsive). Negative for: Speech Normal Skin: Positive for: Warm, Dry, Normal Color. Negative for: Rashes Psychiatric: Positive for: Alert (responds to name ) - Medications Active Medications: Active Medications Generic Name Dose Route Start Last Admin Trade Name Freq PRN Reason Stop Dose Admin Acetaminophen 650 mg 08/14/16 23:50 08/25/16 00:45 Tylenol 650mg/20.3ml Solution Ud PO 650 mg Q6H PRN Administration temp.100.4&above;mild pain 1-3 Albuterol/Ipratropium 3 ml 08/16/16 14:00 09/12/16 08:01 Duoneb 3 Mg/0.5 Mg (3 Ml) Ud INH 3 ml RQ6 [place] Administration Digoxin 0.25 mg 08/30/16 18:00 09/11/16 17:51 Lanoxin PO Not Given DAILY@1800 [place] Famotidine 20 mg 09/06/16 10:00 09/11/16 09:45 Pepcid PO 20 mg DAILY [place] Administration Furosemide 20 mg 09/05/16 10:00 09/11/16 09:45 Lasix PO 20 mg DAILY [place] Administration Heparin Sodium (Porcine) 5,000 units 09/03/16 10:00 09/11/16 23:12 Heparin SC 5,000 units Q12 [place] Administration Tigecycline 50 mg/ Sodium 100 mls @ 100 mls/hr 09/01/16 12:00 09/11/16 23:11 Chloride IVPB 100 mls/hr Q12H [place] Administration Fluconazole 100 mls @ 100 mls/hr 09/03/16 11:00 09/11/16 09:45 Diflucan Iv 200 Mg/100 Ml Ns IVPB 100 mls/hr DAILY [place] Administration Lisinopril 5 mg 08/17/16 10:00 09/11/16 09:45 Zestril PO 5 mg DAILY [place] Administration Metoprolol Tartrate 25 mg 08/12/16 18:00 09/11/16 17:50 Lopressor PO Not Given BID [place] - Patient Studies Lab Studies: Lab Studies 09/12/16 09/12/16 09/11/16 Range/Units 06:45 06:45 10:50 WBC 7.2 (4.8-10.8) K/uL RBC 2.78 L (3.80-5.20) Mil/uL Hgb 9.6 L (11.0-16.0) g/dL Hct 29.5 L (34.0-47.0) % MCV 106.2 H (81.0-99.0) fL MCH 34.7 H (27.0-31.0) pg MCHC 32.6 L (33.0-37.0) g/dL RDW 16.1 H (11.5-14.5) % Plt Count 192 (130-400) K/uL MPV 12.0 H (7.2-11.7) fL Neut % (Auto) 72.5 (50.0-75.0) % Lymph % (Auto) 13.7 L (20.0-40.0) % [place] % (Auto) 9.8 (0.0-10.0) % Eos % (Auto) 2.0 (0.0-4.0) % Baso % (Auto) 2.0 (0.0-2.0) % Neut # 5.2 (1.8-7.0) K/uL Lymph # 1.0 (1.0-4.3) K/uL [place] # 0.7 (0.0-0.8) K/uL Eos # 0.1 (0.0-0.7) K/uL Baso # 0.1 (0.0-0.2) K/uL Sodium 139 (132-148) mmol/L Potassium 4.3 (3.6-5.2) mmol/L Chloride 104 (98-107) mmol/L Carbon Dioxide 30 (22-30) mmol/L Anion Gap 9 L (10-20) BUN 44 H (7-17) mg/dL Creatinine 0.5 L (0.7-1.2) MG/DL Est GFR ( Amer) > 60 Est GFR (Non-Af Amer) > 60 Random Glucose 78 (65-105) mg/dL Calcium 7.6 L (8.6-10.4) mg/dl Phosphorus 2.9 (2.5-4.5) mg/dL Magnesium 2.2 (1.6-2.3) mg/dL Total Bilirubin 0.6 (0.2-1.3) mg/dL AST 23 (14-36) U/L ALT 25 (9-52) U/L Alkaline Phosphatase 220 H (38-126) U/L Total Protein 5.3 L (6.3-8.3) g/dL Albumin 2.0 L (3.5-5.0) g/dL Globulin 3.3 (2.2-3.9) gm/dL Albumin/Globulin Ratio 0.6 L (1.0-2.1) Digoxin 0.8 (0.8-2.0) ng/mL Laboratory Results - last 24 hr 09/11/16 09/12/16 09/12/16 10:50 06:45 06:45 WBC 7.2 RBC 2.78 L Hgb 9.6 L Hct 29.5 L MCV 106.2 H MCH 34.7 H MCHC 32.6 L RDW 16.1 H Plt Count 192 MPV 12.0 H Neut % (Auto) 72.5 Lymph % (Auto) 13.7 L [place] % (Auto) 9.8 Eos % (Auto) 2.0 Baso % (Auto) 2.0 Neut # 5.2 Lymph # 1.0 [place] # 0.7 Eos # 0.1 Baso # 0.1 Sodium 139 Potassium 4.3 Chloride 104 Carbon Dioxide 30 Anion Gap 9 L BUN 44 H Creatinine 0.5 L Est GFR ( Amer) > 60 Est GFR (Non-Af Amer) > 60 Random Glucose 78 Calcium 7.6 L Phosphorus 2.9 Magnesium 2.2 Total Bilirubin 0.6 AST 23 ALT 25 Alkaline Phosphatase 220 H Total Protein 5.3 L Albumin 2.0 L Globulin 3.3 Albumin/Globulin Ratio 0.6 L Digoxin 0.8 Assessment/Plan (1) Arrhythmia Assessment and plan: Acute on chronic resp failure, on ventilator Possible HCAP/vent dependent Cont Tigecycline Prognosis very poor Lopressor being held due to bradycardia HR 50-60s High risk for orthopaedic surgery DNR/DNI Dig level WNL awaiting family decision as per trach vs terminal extubation plan for family meeting tomorrow 1 PM Current Visit: Yes Status: Resolved (2) Closed fracture of greater trochanter of left femur Assessment and plan: bilateral hip fracture s/p recent fall currently having significant weakness and associated pain - currently poor surgical candidate - high risk for mortality/morbidity underlying neurological condition cannot be ruled out Pt at high risk for DVT/PE - will cont HSQ Q12H Current Visit: Yes Status: Acute (3) Pneumonia Assessment and plan: will cont abx wean down FiO2 and trial of CPAP daily f/u sputum culture Current Visit: Yes Status: Acute <Maurizio Crespo S - Last Filed: 09/12/16 16:01> CCU Objective - Vital Signs / Intake & Output Vital Signs (Last 4 hours): Vital Signs Pulse Resp BP Pulse Ox 09/12/16 15:00 49 L 18 99 09/12/16 14:58 57 L 18 121/60 09/12/16 14:00 61 18 09/12/16 13:58 57 L 18 125/58 L 09/12/16 13:00 50 L 15 09/12/16 12:58 50 L 18 119/59 L Intake and Output (Last 8hrs): Intake & Output 09/12/16 09/12/16 09/12/16 06:59 14:59 22:59 Intake Total 380 480 35 Output Total 305 415 75 Balance 75 65 -40 Intake: Intake, IV Amount 100 200 Right PICC 100 200 Tube Feeding 280 280 35 Output: Urine 305 415 75 Urethral (Martinez) 305 415 75 Other: # Bowel Movements 1 - Medications Active Medications: Active Medications Generic Name Dose Route Start Last Admin Trade Name Freq PRN Reason Stop Dose Admin Acetaminophen 650 mg 08/14/16 23:50 08/25/16 00:45 Tylenol 650mg/20.3ml Solution Ud PO 650 mg Q6H PRN Administration temp.100.4&above;mild pain 1-3 Albuterol/Ipratropium 3 ml 08/16/16 14:00 09/12/16 13:50 Duoneb 3 Mg/0.5 Mg (3 Ml) Ud INH 3 ml RQ6 [place] Administration Digoxin 0.25 mg 08/30/16 18:00 09/11/16 17:51 Lanoxin PO Not Given DAILY@1800 [facility] Famotidine 20 mg 09/06/16 10:00 09/12/16 09:28 Pepcid PO 20 mg DAILY [place] Administration Furosemide 20 mg 09/05/16 10:00 09/12/16 09:29 Lasix PO 20 mg DAILY [place] Administration Heparin Sodium (Porcine) 5,000 units 09/03/16 10:00 09/12/16 09:27 Heparin SC 5,000 units Q12 [place] Administration Tigecycline 50 mg/ Sodium 100 mls @ 100 mls/hr 09/01/16 12:00 09/12/16 11:25 Chloride IVPB 100 mls/hr Q12H [place] Administration Fluconazole 100 mls @ 100 mls/hr 09/03/16 11:00 09/12/16 09:27 Diflucan Iv 200 Mg/100 Ml Ns IVPB 100 mls/hr DAILY [place] Administration Lisinopril 5 mg 08/17/16 10:00 09/12/16 09:29 Zestril PO 5 mg DAILY [place] Administration Metoprolol Tartrate 25 mg 08/12/16 18:00 09/12/16 09:29 Lopressor PO 25 mg BID [place] Administration - Patient Studies Lab Studies: Microbiology Studies 09/10/16 06:00 Urine Culture - Final Urine,Martinez No Growth (<1,000 CFU/ML) Lab Studies 09/12/16 09/12/16 Range/Units 06:45 06:45 WBC 7.2 (4.8-10.8) K/uL RBC 2.78 L (3.80-5.20) Mil/uL Hgb 9.6 L (11.0-16.0) g/dL Hct 29.5 L (34.0-47.0) % MCV 106.2 H (81.0-99.0) fL MCH 34.7 H (27.0-31.0) pg MCHC 32.6 L (33.0-37.0) g/dL RDW 16.1 H (11.5-14.5) % Plt Count 192 (130-400) K/uL MPV 12.0 H (7.2-11.7) fL Neut % (Auto) 72.5 (50.0-75.0) % Lymph % (Auto) 13.7 L (20.0-40.0) % [place] % (Auto) 9.8 (0.0-10.0) % Eos % (Auto) 2.0 (0.0-4.0) % Baso % (Auto) 2.0 (0.0-2.0) % Neut # 5.2 (1.8-7.0) K/uL Lymph # 1.0 (1.0-4.3) K/uL [place] # 0.7 (0.0-0.8) K/uL Eos # 0.1 (0.0-0.7) K/uL Baso # 0.1 (0.0-0.2) K/uL Sodium 139 (132-148) mmol/L Potassium 4.3 (3.6-5.2) mmol/L Chloride 104 (98-107) mmol/L Carbon Dioxide 30 (22-30) mmol/L Anion Gap 9 L (10-20) BUN 44 H (7-17) mg/dL Creatinine 0.5 L (0.7-1.2) MG/DL Est GFR ( Amer) > 60 Est GFR (Non-Af Amer) > 60 Random Glucose 78 (65-105) mg/dL Calcium 7.6 L (8.6-10.4) mg/dl Phosphorus 2.9 (2.5-4.5) mg/dL Magnesium 2.2 (1.6-2.3) mg/dL Total Bilirubin 0.6 (0.2-1.3) mg/dL AST 23 (14-36) U/L ALT 25 (9-52) U/L Alkaline Phosphatase 220 H (38-126) U/L Total Protein 5.3 L (6.3-8.3) g/dL Albumin 2.0 L (3.5-5.0) g/dL Globulin 3.3 (2.2-3.9) gm/dL Albumin/Globulin Ratio 0.6 L (1.0-2.1) Laboratory Results - last 24 hr 09/12/16 09/12/16 06:45 06:45 WBC 7.2 RBC 2.78 L Hgb 9.6 L Hct 29.5 L MCV 106.2 H MCH 34.7 H MCHC 32.6 L RDW 16.1 H Plt Count 192 MPV 12.0 H Neut % (Auto) 72.5 Lymph % (Auto) 13.7 L [place] % (Auto) 9.8 Eos % (Auto) 2.0 Baso % (Auto) 2.0 Neut # 5.2 Lymph # 1.0 [place] # 0.7 Eos # 0.1 Baso # 0.1 Sodium 139 Potassium 4.3 Chloride 104 Carbon Dioxide 30 Anion Gap 9 L BUN 44 H Creatinine 0.5 L Est GFR ( Amer) > 60 Est GFR (Non-Af Amer) > 60 Random Glucose 78 Calcium 7.6 L Phosphorus 2.9 Magnesium 2.2 Total Bilirubin 0.6 AST 23 ALT 25 Alkaline Phosphatase 220 H Total Protein 5.3 L Albumin 2.0 L Globulin 3.3 Albumin/Globulin Ratio 0.6 L Assessment/Plan (1) Acute respiratory failure Current Visit: Yes Status: Acute Comment: ccontinue ventilatory support Continue antibiotics Followup chest x-ray DNR/DNI and awaiting family decision (2) CHF exacerbation Current Visit: Yes Status: Resolved (3) Closed fracture of greater trochanter of left femur Current Visit: Yes Status: Acute (4) Garden grade IV closed subcapital fracture of proximal end of right femur Current Visit: Yes Status: Acute Attending/Attestation - Attestation I have personally seen and examined this patient.: Yes I have fully participated in the care of the patient.: Yes I have reviewed all pertinent clinical information: Yes Notes (Text): 09/12/16 16:01 Patient seen and examined in the intensive care unit. Case discussed with house staff in the morning rounds. remains intubated on ventilatory support tolerating CPAP since morning Family meeting tomorrow Continue present treatment for now
[2016-09-12] MEDS: Fluconazole IV 200mg/100 ml NS 100 ML IVPB SCH (09:27)
--- NOTE | 2016-09-12 09:38 | RAD ---
HISTORY: routine COMPARISON: Comparison made with prior study 09/10/2016. FINDINGS: LUNGS: In situ ETT, tip of which lies approximately 5.1 cm above priya. NGT is present, the tip of which overlies left upper quadrant of the abdomen. No change right-sided PICC line with tip in the SVC. Patchy opacities again noted within both mid to lower lung zones. Questionable small bilateral effusions left larger. Slightly improved previously noted increased interstitial markings. PLEURA: No pneumothorax apparent. CARDIOVASCULAR: Heart size unchanged OSSEOUS STRUCTURES: No significant abnormalities. VISUALIZED UPPER ABDOMEN: Normal. OTHER FINDINGS: None. IMPRESSION: Support lines and tubes as above. Patchy bilateral mid to lower lobe opacities could represent pneumonia. Slightly improved previously noted increased interstitial markings
[2016-09-12] MEDS: Digoxin 250 mcg (0.25 mg) Tab PO SCH (18:06)
--- NOTE | 2016-09-12 23:01 | CP.PCM.PN ---
Subjective - Date & Time of Evaluation Date of Evaluation: 09/12/16 Time of Evaluation: 07:00 - Subjective Subjective: Patient on respirator, alert, responding. Metoprolol on hold because of bradycardia. Objective - Vital Signs/Intake and Output Vital Signs (last 24 hours): Temp Pulse Resp BP Pulse Ox 97.6 F 59 L 18 121/67 100 09/12/16 08:00 09/12/16 19:00 09/12/16 19:00 09/12/16 18:58 09/12/16 19:00 Intake and Output: 09/12/16 09/13/16 18:59 06:59 Intake Total 620 Output Total 1730 Balance -1110 - Medications Medications: Current Medications Acetaminophen (Tylenol 650mg/20.3ml Solution Ud) 650 mg PO Q6H PRN PRN Reason: temp.100.4&above;mild pain 1-3 Last Admin: 08/25/16 00:45 Dose: 650 mg Albuterol/Ipratropium (Duoneb 3 Mg/0.5 Mg (3 Ml) Ud) 3 ml INH RQ6 [facility] Last Admin: 09/12/16 20:00 Dose: 3 ml Digoxin (Lanoxin) 0.25 mg PO DAILY@1800 [facility] Last Admin: 09/12/16 18:06 Dose: 0.25 mg Famotidine (Pepcid) 20 mg PO DAILY [facility] Last Admin: 09/12/16 09:28 Dose: 20 mg Furosemide (Lasix) 20 mg PO DAILY [facility] Last Admin: 09/12/16 09:29 Dose: 20 mg Heparin Sodium (Porcine) (Heparin) 5,000 units SC Q12 [facility] Last Admin: 09/12/16 21:29 Dose: 5,000 units Tigecycline 50 mg/ Sodium (Chloride) 100 mls @ 100 mls/hr IVPB Q12H [facility] Last Admin: 09/12/16 11:25 Dose: 100 mls/hr Fluconazole (Diflucan Iv 200 Mg/100 Ml Ns) 100 mls @ 100 mls/hr IVPB DAILY [facility] Last Admin: 09/12/16 09:27 Dose: 100 mls/hr Lisinopril (Zestril) 5 mg PO DAILY [facility] Last Admin: 09/12/16 09:29 Dose: 5 mg Metoprolol Tartrate (Lopressor) 25 mg PO BID [facility] Last Admin: 09/12/16 09:29 Dose: 25 mg - Labs Labs: 09/12/16 06:45 09/12/16 06:45 PT 10.6 SECONDS (9.7-12.2) 08/21/16 06:11 INR 1.0 08/21/16 06:11 APTT 29 SECONDS (21-34) 08/21/16 06:11 - Constitutional Appears: Chronically Ill - Head Exam Head Exam: NORMAL INSPECTION - Eye Exam Eye Exam: Normal appearance - ENT Exam ENT Exam: Normal Exam - Neck Exam Neck Exam: Normal Inspection - Respiratory Exam Additional comments: Rhonchi heard at both bases. - Cardiovascular Exam Cardiovascular Exam: REGULAR RHYTHM - GI/Abdominal Exam GI & Abdominal Exam: Soft, Normal Bowel Sounds - Rectal Exam Rectal Exam: Deferred - Extremities Exam Additional comments: No edema. Tender both hips. - Back Exam Back Exam: NORMAL INSPECTION - Neurological Exam Neurological Exam: Alert, Awake - Psychiatric Exam Psychiatric exam: Anxious - Skin Skin Exam: Abrasion, Dry, Intact, Warm Assessment and Plan (1) Closed fracture of greater trochanter of left femur Status: Acute (2) Dehydration Status: Resolved (3) Sepsis Status: Resolved (4) Fall Status: Acute (5) Arrhythmia Status: Resolved (6) Contusion of head Status: Acute (7) Garden grade IV closed subcapital fracture of proximal end of right femur Status: Acute (8) CHF exacerbation Status: Resolved (9) Acute respiratory failure Status: Acute (10) Pleural effusion, right Status: Resolved (11) Right middle lobe pneumonia Assessment & Plan: To continue IV antibiotic. Status: Acute (12) VRE (vancomycin resistant enterococcus) culture positive Status: Acute
[2016-09-13] MEDS: Albuterol-Ipratrop 3 mg / 0.5 (3 ml) UD INH SCH ×4 (00:59→19:34)
[2016-09-13 04:44] LABS: BASO # 0.1 K/uL (0.0-0.2); BASO % 0.9 % (0.0-2.0); EOS # 0.1 K/uL (0.0-0.7); EOS % 1.1 % (0.0-4.0); HEMOGLOBIN 10.3 g/dL (11.0-16.0); LYMPH % 11.7 % (20.0-40.0); MEAN CELL VOLUME 104.9 fL (81.0-99.0); MEAN CORPUSCULAR HEMOGLOBIN 34.8 pg (27.0-31.0); MEAN CORPUSCULAR HGB CONC 33.2 g/dL (33.0-37.0); MONO # 0.8 K/uL (0.0-0.8); MONO % 9.4 % (0.0-10.0); NEUT # 6.4 K/uL (1.8-7.0); NEUT % 76.9 % (50.0-75.0); RBC 2.95 Mil/uL (3.80-5.20); RED CELL DISTRIBUTION WIDTH 15.8 % (11.5-14.5); WHITE BLOOD COUNT 8.3 K/uL (4.8-10.8)
[2016-09-13 04:51] LABS: ALBUMIN 1.9 g/dL (3.5-5.0)
[2016-09-13 04:54] LABS: ALB/GLOB RATIO 0.6 (1.0-2.1); ALT/SGPT 40 U/L (9-52); AST/SGOT 25 U/L (14-36); BLOOD UREA NITROGEN 44 mg/dL (7-17); GFR AFRICAN-AMERICAN > 60; GFR NON-AFRICAN AMERICAN > 60
[2016-09-13 04:55] LABS: CALCIUM 7.5 mg/dl (8.6-10.4); MAGNESIUM 1.9 mg/dL (1.6-2.3)
[2016-09-13 06:05] LABS: ABG ALLEN TEST A; ARTERIAL BLOOD GAS HCO3 31.7 mmol/L (21-28); ARTERIAL BLOOD GAS HEMOGLOBIN 10.4 g/dL (11.7-17.4); ARTERIAL BLOOD GAS O2 SAT 99.7 % (95-98); ARTERIAL BLOOD GAS PCO2 43 mm/Hg (35-45); ARTERIAL BLOOD GAS PH 7.49 (7.35-7.45); ARTERIAL BLOOD GAS PO2 167 mm/Hg (80-100); ARTERIAL BLOOD GAS TCO2 34.1 mmol/L (22-28)
--- NOTE | 2016-09-13 09:36 | CP.CCUPN ---
CCU Subjective - Physician Review Events Since Last Encounter (Free Text): 09/13/16 09:35 The Patient was seen and examined at the bedside, Medical records reviewed, all clinical/lab/hemodynamic/radiographic data were reviewed and management issues were discussed and formulated, Events reviewed Pt alert and awake. Responds to simple commands. Comfortable Did not tolerate CPAP, Bradycardia and apnea after 45 minutes Lopressor discontinued due to Bradycardia Family meeting today at 1:30PM CCU Objective - Vital Signs / Intake & Output Vital Signs (Last 4 hours): Vital Signs Pulse Resp BP Pulse Ox 09/13/16 09:00 62 19 09/13/16 08:58 64 18 129/74 100 09/13/16 08:00 63 18 09/13/16 07:58 82 22 131/83 09/13/16 07:00 58 L 18 09/13/16 06:58 54 L 18 117/56 L 09/13/16 06:00 61 18 100 09/13/16 05:58 64 17 128/63 100 Intake and Output (Last 8hrs): Intake & Output 09/12/16 09/13/16 09/13/16 22:59 06:59 14:59 Intake Total 280 380 70 Output Total 1175 200 40 Balance -895 180 30 Intake: Intake, IV Amount 100 Right PICC 100 Tube Feeding 280 280 70 Output: Urine 1175 200 40 Urethral (Martinez) 1175 200 40 - Physical Exam Head: Positive for: Normocephalic, Ecchymosis. Negative for: Atraumatic Pupils: Positive for: PERRL Extroacular Muscles: Positive for: EOMI Conjunctiva: Positive for: Normal. Negative for: Injected, Icteric Mouth: Positive for: Other (ET tube in place) Nose (External): Positive for: Other (NGT in place- tolerating feeds) Neck: Negative for: JVD, Bruit Respiratory/Chest: Positive for: Good Air Exchange, Decreased Breath Sounds ( bibasilar R > L), Other (vent sounds heard throughout). Negative for: Clear to Auscultation, Respiratory Distress, Accessory Muscle Use, Wheezes, Retracting, Rhonchi Cardiovascular: Positive for: Regular Rate and Rhythm, Normal S1, S2, Peripheal Pulses Present. Negative for: Murmurs, Irregular Rhythm Abdomen: Positive for: Normal Bowel Sounds. Negative for: Tenderness, Distention, Peritoneal Signs, Rebound, Guarding Upper Extremity: Positive for: Normal Inspection, NORMAL PULSES, Other (mittens in place b/l). Negative for: Edema Lower Extremity: Positive for: NORMAL PULSES, Deformity (right leg shortened and externally rotated ), Other (pain to b/l hips on palpation, SCDs in place). Negative for: Normal Inspection, Edema, Normal ROM Neurological: Positive for: Other (alert and responsive). Negative for: Speech Normal Skin: Positive for: Warm, Dry, Normal Color. Negative for: Rashes Psychiatric: Positive for: Alert (responds to name ) - Medications Active Medications: Active Medications Generic Name Dose Route Start Last Admin Trade Name Freq PRN Reason Stop Dose Admin Acetaminophen 650 mg 08/14/16 23:50 08/25/16 00:45 Tylenol 650mg/20.3ml Solution Ud PO 650 mg Q6H PRN Administration temp.100.4&above;mild pain 1-3 Albuterol/Ipratropium 3 ml 08/16/16 14:00 09/13/16 08:56 Duoneb 3 Mg/0.5 Mg (3 Ml) Ud INH 3 ml RQ6 [place] Administration Digoxin 0.25 mg 09/12/16 17:57 09/12/16 18:06 Lanoxin PO 0.25 mg DAILY@1800 [place] Administration Famotidine 20 mg 09/06/16 10:00 09/12/16 09:28 Pepcid PO 20 mg DAILY [place] Administration Furosemide 20 mg 09/05/16 10:00 09/12/16 09:29 Lasix PO 20 mg DAILY [place] Administration Heparin Sodium (Porcine) 5,000 units 09/03/16 10:00 09/12/16 21:29 Heparin SC 5,000 units Q12 [place] Administration Tigecycline 50 mg/ Sodium 100 mls @ 100 mls/hr 09/01/16 12:00 09/13/16 00:44 Chloride IVPB 100 mls/hr Q12H [place] Administration Fluconazole 100 mls @ 100 mls/hr 09/03/16 11:00 09/12/16 09:27 Diflucan Iv 200 Mg/100 Ml Ns IVPB 100 mls/hr DAILY [place] Administration Lisinopril 5 mg 08/17/16 10:00 09/12/16 09:29 Zestril PO 5 mg DAILY [place] Administration Metoprolol Tartrate 25 mg 08/12/16 18:00 09/12/16 09:29 Lopressor PO 25 mg BID [place] Administration - Patient Studies Lab Studies: Microbiology Studies 09/10/16 06:00 Urine Culture - Final Urine,Martinez No Growth (<1,000 CFU/ML) Lab Studies 09/13/16 09/13/16 09/13/16 Range/Units 04:39 04:39 03:05 WBC 8.3 (4.8-10.8) K/uL RBC 2.95 L (3.80-5.20) Mil/uL Hgb 10.3 L (11.0-16.0) g/dL Hct 30.9 L (34.0-47.0) % MCV 104.9 H (81.0-99.0) fL MCH 34.8 H (27.0-31.0) pg MCHC 33.2 (33.0-37.0) g/dL RDW 15.8 H (11.5-14.5) % Plt Count 197 (130-400) K/uL MPV 12.0 H (7.2-11.7) fL Neut % (Auto) 76.9 H (50.0-75.0) % Lymph % (Auto) 11.7 L (20.0-40.0) % [place] % (Auto) 9.4 (0.0-10.0) % Eos % (Auto) 1.1 (0.0-4.0) % Baso % (Auto) 0.9 (0.0-2.0) % Neut # 6.4 (1.8-7.0) K/uL Lymph # 1.0 (1.0-4.3) K/uL [place]hing # 0.8 (0.0-0.8) K/uL Eos # 0.1 (0.0-0.7) K/uL Baso # 0.1 (0.0-0.2) K/uL Puncture Site L brach pCO2 43 (35-45) mm/Hg pO2 167 H (80-100) mm/Hg HCO3 31.7 H (21-28) mmol/L ABG pH 7.49 H (7.35-7.45) ABG Total CO2 34.1 H (22-28) mmol/L ABG O2 Saturation 99.7 H (95-98) % ABG Base Excess 8.6 H (-2.0-3.0) mmol/L ABG Hemoglobin 10.4 L (11.7-17.4) g/dL ABG Carboxyhemoglobin 1.3 (0.5-1.5) % POC ABG HHb (Measured) 0.3 (0.0-5.0) % ABG Methemoglobin 1.1 (0.0-3.0) % Seng Test A A-a O2 Difference 136.0 mm/Hg Respiratory Index 0.8 Hgb O2 Saturation 97.3 (95.0-98.0) % Mechanical Rate 18 FiO2 50.0 % Tidal Volume 360 PEEP 5 Sodium 136 (132-148) mmol/L Potassium 4.2 (3.6-5.2) mmol/L Chloride 101 (98-107) mmol/L Carbon Dioxide 32 H (22-30) mmol/L Anion Gap 7 L (10-20) BUN 44 H (7-17) mg/dL Creatinine 0.5 L (0.7-1.2) MG/DL Est GFR ( Amer) > 60 Est GFR (Non-Af Amer) > 60 Random Glucose 95 (65-105) mg/dL Calcium 7.5 L (8.6-10.4) mg/dl Phosphorus 3.2 (2.5-4.5) mg/dL Magnesium 1.9 (1.6-2.3) mg/dL Total Bilirubin 0.5 (0.2-1.3) mg/dL AST 25 (14-36) U/L ALT 40 (9-52) U/L Alkaline Phosphatase 238 H (38-126) U/L Total Protein 5.3 L (6.3-8.3) g/dL Albumin 1.9 L (3.5-5.0) g/dL Globulin 3.3 (2.2-3.9) gm/dL Albumin/Globulin Ratio 0.6 L (1.0-2.1) Laboratory Results - last 24 hr 09/13/16 09/13/16 09/13/16 03:05 04:39 04:39 WBC 8.3 RBC 2.95 L Hgb 10.3 L Hct 30.9 L MCV 104.9 H MCH 34.8 H MCHC 33.2 RDW 15.8 H Plt Count 197 MPV 12.0 H Neut % (Auto) 76.9 H Lymph % (Auto) 11.7 L Pershing % (Auto) 9.4 Eos % (Auto) 1.1 Baso % (Auto) 0.9 Neut # 6.4 Lymph # 1.0 Pershing # 0.8 Eos # 0.1 Baso # 0.1 Puncture Site L brach pCO2 43 pO2 167 H HCO3 31.7 H ABG pH 7.49 H ABG Total CO2 34.1 H ABG O2 Saturation 99.7 H ABG Base Excess 8.6 H ABG Hemoglobin 10.4 L ABG Carboxyhemoglobin 1.3 POC ABG HHb (Measured) 0.3 ABG Methemoglobin 1.1 Seng Test A A-a O2 Difference 136.0 Respiratory Index 0.8 Hgb O2 Saturation 97.3 Mechanical Rate 18 FiO2 50.0 Tidal Volume 360 PEEP 5 Sodium 136 Potassium 4.2 Chloride 101 Carbon Dioxide 32 H Anion Gap 7 L BUN 44 H Creatinine 0.5 L Est GFR ( Amer) > 60 Est GFR (Non-Af Amer) > 60 Random Glucose 95 Calcium 7.5 L Phosphorus 3.2 Magnesium 1.9 Total Bilirubin 0.5 AST 25 ALT 40 Alkaline Phosphatase 238 H Total Protein 5.3 L Albumin 1.9 L Globulin 3.3 Albumin/Globulin Ratio 0.6 L Assessment/Plan (1) Acute respiratory failure Current Visit: Yes Status: Acute Comment: ccontinue ventilatory support Continue antibiotics Followup chest x-ray DNR/DNI and awaiting family decision (2) Closed fracture of greater trochanter of left femur Current Visit: Yes Status: Acute (3) Right middle lobe pneumonia Current Visit: Yes Status: Acute (4) Status post thoracentesis Current Visit: Yes Status: Acute (5) VRE (vancomycin resistant enterococcus) culture positive Current Visit: Yes Status: Acute
[2016-09-13] MEDS: Fluconazole IV 200mg/100 ml NS 100 ML IVPB SCH (09:58)
--- NOTE | 2016-09-13 15:27 | CP.PCM.PN ---
Subjective - Date & Time of Evaluation Date of Evaluation: 09/13/16 Time of Evaluation: 15:25 - Subjective Subjective: Patient on respirator, alert, responding. Again could not tolerated a trial of CPAP. CXR: improved infiltrates of the RML and RLL. Much less secretion from ET tube according her Nurse. Afebrile. Objective - Vital Signs/Intake and Output Vital Signs (last 24 hours): Temp Pulse Resp BP Pulse Ox 97.8 F 62 19 122/62 100 09/13/16 04:00 09/13/16 09:00 09/13/16 09:00 09/13/16 09:59 09/13/16 08:58 Intake and Output: 09/13/16 09/13/16 06:59 18:59 Intake Total 520 70 Output Total 400 40 Balance 120 30 - Medications Medications: Current Medications Acetaminophen (Tylenol 650mg/20.3ml Solution Ud) 650 mg PO Q6H PRN PRN Reason: temp.100.4&above;mild pain 1-3 Last Admin: 08/25/16 00:45 Dose: 650 mg Albuterol/Ipratropium (Duoneb 3 Mg/0.5 Mg (3 Ml) Ud) 3 ml INH RQ6 [facility] Last Admin: 09/13/16 13:43 Dose: 3 ml Digoxin (Lanoxin) 0.25 mg PO DAILY@1800 [facility] Last Admin: 09/12/16 18:06 Dose: 0.25 mg Famotidine (Pepcid) 20 mg PO DAILY [facility] Last Admin: 09/13/16 10:00 Dose: 20 mg Furosemide (Lasix) 20 mg PO DAILY [facility] Last Admin: 09/13/16 09:59 Dose: 20 mg Heparin Sodium (Porcine) (Heparin) 5,000 units SC Q12 [facility] Last Admin: 09/13/16 09:59 Dose: 5,000 units Tigecycline 50 mg/ Sodium (Chloride) 100 mls @ 100 mls/hr IVPB Q12H [facility] Last Admin: 09/13/16 13:32 Dose: 100 mls/hr Fluconazole (Diflucan Iv 200 Mg/100 Ml Ns) 100 mls @ 100 mls/hr IVPB DAILY [facility] Last Admin: 09/13/16 09:58 Dose: 100 mls/hr Lisinopril (Zestril) 5 mg PO DAILY [facility] Last Admin: 09/13/16 10:01 Dose: 5 mg Metoprolol Tartrate (Lopressor) 25 mg PO BID [facility] Last Admin: 09/12/16 09:29 Dose: 25 mg - Labs Labs: 09/13/16 04:39 09/13/16 04:39 PT 10.6 SECONDS (9.7-12.2) 08/21/16 06:11 INR 1.0 08/21/16 06:11 APTT 29 SECONDS (21-34) 08/21/16 06:11 - Constitutional Appears: Cachectic, Chronically Ill - Head Exam Head Exam: NORMOCEPHALIC - Eye Exam Eye Exam: Normal appearance - ENT Exam ENT Exam: Normal Exam - Neck Exam Neck Exam: Normal Inspection - Respiratory Exam Additional comments: Rhonchi heard at both bases. - Cardiovascular Exam Cardiovascular Exam: Irregular Rhythm - GI/Abdominal Exam GI & Abdominal Exam: Soft, Normal Bowel Sounds - Rectal Exam Rectal Exam: Deferred - Back Exam Back Exam: NORMAL INSPECTION - Neurological Exam Neurological Exam: Alert, Awake - Psychiatric Exam Psychiatric exam: Anxious - Skin Skin Exam: Abrasion, Dry, Intact, Normal Color, Warm Assessment and Plan (1) Closed fracture of greater trochanter of left femur Status: Acute (2) Dehydration Status: Resolved (3) Sepsis Status: Resolved (4) Fall Status: Acute (5) Arrhythmia Status: Resolved (6) Contusion of head Status: Acute (7) Garden grade IV closed subcapital fracture of proximal end of right femur Status: Acute (8) CHF exacerbation Status: Resolved (9) Acute respiratory failure Status: Acute (10) Pleural effusion, right Status: Resolved (11) Right middle lobe pneumonia Assessment & Plan: To continue IV antibiotic. Status: Acute (12) VRE (vancomycin resistant enterococcus) culture positive Status: Acute
[2016-09-13] MEDS: Digoxin 250 mcg (0.25 mg) Tab PO SCH (17:37)
[2016-09-14] MEDS: Albuterol-Ipratrop 3 mg / 0.5 (3 ml) UD INH SCH ×4 (01:44→19:41)
[2016-09-14] MEDS: Fluconazole IV 200mg/100 ml NS 100 ML IVPB SCH (10:48)
[2016-09-14 11:45] LABS: BASO # 0.2 K/uL (0.0-0.2); EOS # 0.1 K/uL (0.0-0.7); EOS % 0.4 % (0.0-4.0); MEAN CORPUSCULAR HEMOGLOBIN 33.5 pg (27.0-31.0); MONO # 0.9 K/uL (0.0-0.8); NRBC % 0.2 % (0.0-2.0)
[2016-09-14 11:57] LABS: ALBUMIN 2.4 g/dL (3.5-5.0)
[2016-09-14 12:00] LABS: ALB/GLOB RATIO 0.6 (1.0-2.1); AST/SGOT 27 U/L (14-36); BASO % 1.4 % (0.0-2.0); BLOOD UREA NITROGEN 49 mg/dL (7-17); GFR AFRICAN-AMERICAN > 60; GFR NON-AFRICAN AMERICAN > 60; HEMOGLOBIN 11.4 g/dL (11.0-16.0); LYMPH # 2.2 K/uL (1.0-4.3); MEAN CORPUSCULAR HGB CONC 31.3 g/dL (33.0-37.0); MONO % 5.3 % (0.0-10.0); NEUT # 13.6 K/uL (1.8-7.0); NEUT % 79.9 % (50.0-75.0); RBC 3.4 Mil/uL (3.80-5.20); RED CELL DISTRIBUTION WIDTH 16.3 % (11.5-14.5)
[2016-09-14 12:01] LABS: ALT/SGPT 45 U/L (9-52); CALCIUM 7.8 mg/dl (8.6-10.4); MAGNESIUM 2.2 mg/dL (1.6-2.3); MEAN CELL VOLUME 106.9 fL (81.0-99.0)
[2016-09-14 12:11] LABS: INR 1.2; PROTHROMBIN TIME 13.5 SECONDS (9.7-12.2)
--- NOTE | 2016-09-14 15:02 | CP.CCUPN ---
CCU Subjective - Physician Review Events Since Last Encounter (Free Text): 09/14/16 15:02 Patient seen and examined in the intensive care unit. Case discussed with staff in the morning rounds. Remains intubated on ventilatory support, tolerating weaning and on PRVC mode Received morphine and Ativan Afebrile Family decided for tracheostomy CCU Objective - Vital Signs / Intake & Output Vital Signs (Last 4 hours): Vital Signs Pulse Resp BP Pulse Ox 09/14/16 14:27 60 16 100/54 L 09/14/16 13:58 61 16 82/40 L 09/14/16 12:58 60 16 86/38 L 09/14/16 12:08 69 16 64/34 L 09/14/16 11:58 73 16 74/38 L 09/14/16 10:58 99 H 15 93/59 L 87 L Intake and Output (Last 8hrs): Intake & Output 09/13/16 09/14/16 09/14/16 22:59 06:59 14:59 Intake Total 280 380 480 Output Total 625 310 380 Balance -345 70 100 Intake: Intake, IV Amount 100 200 Right PICC 100 200 Tube Feeding 280 280 280 Output: Urine 625 310 380 Urethral (Martinez) 625 310 380 - Physical Exam Head: Positive for: Normocephalic, Ecchymosis. Negative for: Atraumatic Pupils: Positive for: PERRL Extroacular Muscles: Positive for: EOMI Conjunctiva: Positive for: Normal. Negative for: Injected, Icteric Mouth: Positive for: Other (ET tube in place) Nose (External): Positive for: Other (NGT in place- tolerating feeds) Neck: Negative for: JVD, Bruit Respiratory/Chest: Positive for: Good Air Exchange, Decreased Breath Sounds ( bibasilar R > L), Other (vent sounds heard throughout). Negative for: Clear to Auscultation, Respiratory Distress, Accessory Muscle Use, Wheezes, Retracting, Rhonchi Cardiovascular: Positive for: Regular Rate and Rhythm, Normal S1, S2, Peripheal Pulses Present. Negative for: Murmurs, Irregular Rhythm Abdomen: Positive for: Normal Bowel Sounds. Negative for: Tenderness, Distention, Peritoneal Signs, Rebound, Guarding Upper Extremity: Positive for: Normal Inspection, NORMAL PULSES, Other (mittens in place b/l). Negative for: Edema Lower Extremity: Positive for: NORMAL PULSES, Deformity (right leg shortened and externally rotated ), Other (pain to b/l hips on palpation, SCDs in place). Negative for: Normal Inspection, Edema, Normal ROM Neurological: Positive for: Other (alert and responsive). Negative for: Speech Normal Skin: Positive for: Warm, Dry, Normal Color. Negative for: Rashes Psychiatric: Positive for: Alert (responds to name ) - Medications Active Medications: Active Medications Generic Name Dose Route Start Last Admin Trade Name Freq PRN Reason Stop Dose Admin Acetaminophen 650 mg 08/14/16 23:50 08/25/16 00:45 Tylenol 650mg/20.3ml Solution Ud PO 650 mg Q6H PRN Administration temp.100.4&above;mild pain 1-3 Albuterol/Ipratropium 3 ml 08/16/16 14:00 09/14/16 13:27 Duoneb 3 Mg/0.5 Mg (3 Ml) Ud INH 3 ml RQ6 [facility] Administration Digoxin 0.25 mg 09/12/16 17:57 09/13/16 17:37 Lanoxin PO 0.25 mg DAILY@1800 [facility] Administration Famotidine 20 mg 09/06/16 10:00 09/14/16 10:50 Pepcid PO 20 mg DAILY [facility] Administration Furosemide 20 mg 09/05/16 10:00 09/14/16 10:50 Lasix PO 20 mg DAILY [facility] Administration Heparin Sodium (Porcine) 5,000 units 09/03/16 10:00 09/14/16 10:49 Heparin SC 5,000 units Q12 [facility] Administration Tigecycline 50 mg/ Sodium 100 mls @ 100 mls/hr 09/01/16 12:00 09/14/16 11:52 Chloride IVPB 100 mls/hr Q12H [facility] Administration Fluconazole 100 mls @ 100 mls/hr 09/03/16 11:00 09/14/16 10:48 Diflucan Iv 200 Mg/100 Ml Ns IVPB 100 mls/hr DAILY [facility] Administration Lisinopril 5 mg 08/17/16 10:00 09/14/16 10:50 Zestril PO 5 mg DAILY [facility] Administration Lorazepam 1 mg 09/14/16 10:31 09/14/16 10:41 Ativan IVP 1 mg Q3H PRN Administration Agitation Metoprolol Tartrate 25 mg 08/12/16 18:00 09/12/16 09:29 Lopressor PO 25 mg BID [facility] Administration Morphine Sulfate 1 mg 09/13/16 16:22 09/14/16 09:44 Morphine IV 1 mg Q4 PRN Administration Pain, moderate (4-7) - Patient Studies Lab Studies: Lab Studies 09/14/16 09/14/16 09/14/16 Range/Units 11:40 11:40 11:40 WBC 17.0 H D (4.8-10.8) K/uL RBC 3.40 L (3.80-5.20) Mil/uL Hgb 11.4 (11.0-16.0) g/dL Hct 36.3 (34.0-47.0) % MCV 106.9 H D (81.0-99.0) fL MCH 33.5 H (27.0-31.0) pg MCHC 31.3 L (33.0-37.0) g/dL RDW 16.3 H (11.5-14.5) % Plt Count 248 (130-400) K/uL MPV 13.0 H (7.2-11.7) fL Neut % (Auto) 79.9 H (50.0-75.0) % Lymph % (Auto) 13.0 L (20.0-40.0) % Miller % (Auto) 5.3 (0.0-10.0) % Eos % (Auto) 0.4 (0.0-4.0) % Baso % (Auto) 1.4 (0.0-2.0) % Neut # 13.6 H (1.8-7.0) K/uL Lymph # 2.2 (1.0-4.3) K/uL Miller # 0.9 H (0.0-0.8) K/uL Eos # 0.1 (0.0-0.7) K/uL Baso # 0.2 (0.0-0.2) K/uL PT 13.5 H (9.7-12.2) SECONDS INR 1.2 APTT 37 H (21-34) SECONDS Sodium 139 (132-148) mmol/L Potassium 4.7 (3.6-5.2) mmol/L Chloride 102 (98-107) mmol/L Carbon Dioxide 30 (22-30) mmol/L Anion Gap 12 (10-20) BUN 49 H (7-17) mg/dL Creatinine 0.6 L (0.7-1.2) MG/DL Est GFR ( Amer) > 60 Est GFR (Non-Af Amer) > 60 Random Glucose 124 H (65-105) mg/dL Calcium 7.8 L (8.6-10.4) mg/dl Phosphorus 4.1 (2.5-4.5) mg/dL Magnesium 2.2 (1.6-2.3) mg/dL Total Bilirubin 0.5 (0.2-1.3) mg/dL AST 27 (14-36) U/L ALT 45 (9-52) U/L Alkaline Phosphatase 296 H D (38-126) U/L Total Protein 6.4 (6.3-8.3) g/dL Albumin 2.4 L D (3.5-5.0) g/dL Globulin 3.9 (2.2-3.9) gm/dL Albumin/Globulin Ratio 0.6 L (1.0-2.1) Laboratory Results - last 24 hr 09/14/16 09/14/16 09/14/16 11:40 11:40 11:40 WBC 17.0 H D RBC 3.40 L Hgb 11.4 Hct 36.3 MCV 106.9 H D MCH 33.5 H MCHC 31.3 L RDW 16.3 H Plt Count 248 MPV 13.0 H Neut % (Auto) 79.9 H Lymph % (Auto) 13.0 L Miller % (Auto) 5.3 Eos % (Auto) 0.4 Baso % (Auto) 1.4 Neut # 13.6 H Lymph # 2.2 Miller # 0.9 H Eos # 0.1 Baso # 0.2 PT 13.5 H INR 1.2 APTT 37 H Sodium 139 Potassium 4.7 Chloride 102 Carbon Dioxide 30 Anion Gap 12 BUN 49 H Creatinine 0.6 L Est GFR ( Amer) > 60 Est GFR (Non-Af Amer) > 60 Random Glucose 124 H Calcium 7.8 L Phosphorus 4.1 Magnesium 2.2 Total Bilirubin 0.5 AST 27 ALT 45 Alkaline Phosphatase 296 H D Total Protein 6.4 Albumin 2.4 L D Globulin 3.9 Albumin/Globulin Ratio 0.6 L Review of Systems - Review of Systems Systems not reviewed;Unavailable: Intubated Critical Care Progress Note - Ventilator Checklist Head of Bed 30 Degrees: Yes Daily Spontaneous Breathing Trial: Yes PUD Prophalyxis: Yes DVT Prophylaxis: Yes Assessment/Plan (1) Acute respiratory failure Assessment and plan: Patient tolerating CPAP since morning CAT scan of the chest showed no pulmonary embolism but consistent with bilateral pleural effusion and severe emphysema Plan to extubate nebulizer treatment Start IV steroids Continue antibiotics Current Visit: Yes Status: Acute Comment: ccontinue ventilatory support Surgical consult for tracheostomy and PEG insertion Continue diuretics and present treatment Continue with weaning as tolerated (2) CHF exacerbation Current Visit: Yes Status: Resolved (3) Closed fracture of greater trochanter of left femur Current Visit: Yes Status: Acute (4) Garden grade IV closed subcapital fracture of proximal end of right femur Current Visit: Yes Status: Acute
--- NOTE | 2016-09-14 16:16 | CP.PCM.PN ---
Subjective - Date & Time of Evaluation Date of Evaluation: 09/14/16 Time of Evaluation: 09:00 - Subjective Subjective: overall improved wbc trendingh up needs trach and PEG will reculture Objective - Vital Signs/Intake and Output Vital Signs (last 24 hours): Temp Pulse Resp BP Pulse Ox 98.2 F 70 18 89/47 L 87 L 09/14/16 04:00 09/14/16 15:56 09/14/16 15:56 09/14/16 15:58 09/14/16 10:58 Intake and Output: 09/14/16 09/14/16 06:59 18:59 Intake Total 520 515 Output Total 470 455 Balance 50 60 - Medications Medications: Current Medications Acetaminophen (Tylenol 650mg/20.3ml Solution Ud) 650 mg PO Q6H PRN PRN Reason: temp.100.4&above;mild pain 1-3 Last Admin: 08/25/16 00:45 Dose: 650 mg Albuterol/Ipratropium (Duoneb 3 Mg/0.5 Mg (3 Ml) Ud) 3 ml INH RQ6 [facility] Last Admin: 09/14/16 13:27 Dose: 3 ml Digoxin (Lanoxin) 0.25 mg PO DAILY@1800 [facility] Last Admin: 09/13/16 17:37 Dose: 0.25 mg Famotidine (Pepcid) 20 mg PO DAILY [facility] Last Admin: 09/14/16 10:50 Dose: 20 mg Furosemide (Lasix) 20 mg PO DAILY [facility] Last Admin: 09/14/16 10:50 Dose: 20 mg Heparin Sodium (Porcine) (Heparin) 5,000 units SC Q12 [facility] Last Admin: 09/14/16 10:49 Dose: 5,000 units Tigecycline 50 mg/ Sodium (Chloride) 100 mls @ 100 mls/hr IVPB Q12H [facility] Last Admin: 09/14/16 11:52 Dose: 100 mls/hr Fluconazole (Diflucan Iv 200 Mg/100 Ml Ns) 100 mls @ 100 mls/hr IVPB DAILY [facility] Last Admin: 09/14/16 10:48 Dose: 100 mls/hr Lisinopril (Zestril) 5 mg PO DAILY [facility] Last Admin: 09/14/16 10:50 Dose: 5 mg Lorazepam (Ativan) 1 mg IVP Q3H PRN PRN Reason: Agitation Last Admin: 09/14/16 10:41 Dose: 1 mg Metoprolol Tartrate (Lopressor) 25 mg PO BID [facility] Last Admin: 09/12/16 09:29 Dose: 25 mg Morphine Sulfate (Morphine) 1 mg IV Q4 PRN PRN Reason: Pain, moderate (4-7) Last Admin: 09/14/16 09:44 Dose: 1 mg - Labs Labs: 09/14/16 11:40 09/14/16 11:40 PT 13.5 SECONDS (9.7-12.2) H 09/14/16 11:40 INR 1.2 09/14/16 11:40 APTT 37 SECONDS (21-34) H 09/14/16 11:40 - Constitutional Appears: Non-toxic, Cachectic, Chronically Ill - Head Exam Head Exam: NORMOCEPHALIC - Eye Exam Eye Exam: PERRL. absent: Scleral icterus - ENT Exam ENT Exam: Mucous Membranes Dry - Neck Exam Neck Exam: absent: Lymphadenopathy - Respiratory Exam Respiratory Exam: Decreased Breath Sounds - Cardiovascular Exam Cardiovascular Exam: REGULAR RHYTHM - GI/Abdominal Exam GI & Abdominal Exam: Distended, Soft Assessment and Plan (1) Acute respiratory failure Status: Acute (2) Closed fracture of greater trochanter of left femur Status: Acute (3) Contusion of head Status: Acute (4) Fall Status: Acute (5) Garden grade IV closed subcapital fracture of proximal end of right femur Status: Acute (6) Pelvic fracture Status: Acute (7) Pleural effusion due to CHF (congestive heart failure) Status: Acute (8) Right middle lobe pneumonia Status: Acute (9) CHF (NYHA class III, ACC/AHA stage C) Status: Chronic (10) Degenerative joint disease of right hip Status: Chronic (11) Multifocal atrial tachycardia Status: Chronic (12) Arrhythmia Status: Resolved (13) CHF exacerbation Status: Resolved (14) Dehydration Status: Resolved (15) Pleural effusion, right Status: Resolved (16) Sepsis Status: Resolved
[2016-09-14] MEDS: Digoxin 250 mcg (0.25 mg) Tab PO SCH (18:09)
--- NOTE | 2016-09-14 19:11 | CP.PCM.CON ---
<Saskia Bush - Last Filed: 09/14/16 19:12> History of Present Illness - History of Present Illness History of Present Illness: GENERAL SURGERY CONSULT NOTE FOR DR. GALE 76yo F with PMHx of arthritis, bronchitis, HTN, emphysema, who has respiratory failure. Surgery is consulted for trach and PEG. Patient was initially brought into the ED on 08/07/16 after a trip and fall at home. She was on the floor for an unknown period of time. She was found to have displaced right femoral neck fracture and non displaced fracture of left greater trochanter. No surgery was done due to patient being a poor surgical candidate. CXR showed emphysema. She was found to be septic with elevated lactate. Patient had cardiac arrest and was intubated. She was later extubated but had to be reintubated. She has been intubated 3 times since her arrival. She has currently been intubated since 09/02. Per nurse, patient is usually alert , able to follow commands, and had nodded yes when asked if she wanted a trach and PEG. However, patient was very agitated this morning requiring Ativan and currently patient is not responding to questioning. Information is obtained from the medication record. Patient's family also agreed for Trach and PEG. ECHO on 08/14/16 showed moderate to severe LV systolic function. PMHx: arthritis, bronchitis, HTN, emphysema, anxiety, CHF, cardiac arrhythmia ( frequent PACs and short runs of SVT) Surgeries: appendectomy Allergies: egg Social history: smokes a few cigarettes a day Review of Systems - Review of Systems Systems not reviewed;Unavailable: Intubated Past Patient History - Infectious Disease Hx of Infectious Diseases: None - Tetanus Immunizations Tetanus Immunization: Unknown - Past Medical History & Family History Past Medical History?: Yes Past Family History: Reviewed and not pertinent - Past Social History Smoking Status: Heavy Smoker > 10 Cigarettes Daily Alcohol: None Drugs: Denies Home Situation {Lives}: With Family Domestic Violence: Negative - CARDIAC Hx Congestive Heart Failure: Yes Hx Hypertension: Yes - PULMONARY Hx Bronchitis: Yes Hx Emphysema: Yes - NEUROLOGICAL Hx Neurological Disorder: No - HEENT Hx HEENT Problems: Yes Hx Cataracts: Yes - RENAL Hx Chronic Kidney Disease: No - ENDOCRINE/METABOLIC Hx Endocrine Disorders: No - HEMATOLOGICAL/ONCOLOGICAL Hx Blood Disorders: No - INTEGUMENTARY Hx Dermatological Problems: No - MUSCULOSKELETAL/RHEUMATOLOGICAL Hx Arthritis: Yes - GASTROINTESTINAL Hx Gastrointestinal Disorders: No - GENITOURINARY/GYNECOLOGICAL Hx Genitourinary Disorders: No - PSYCHIATRIC Hx Anxiety: Yes Hx Substance Use: No - SURGICAL HISTORY Hx Appendectomy: Yes Hx Eye Surgery: Yes - ANESTHESIA Hx Anesthesia: Yes Hx Anesthesia Reactions: Yes ("cough") Hx Malignant Hyperthermia: No Has any member of the family had a problem w/ anesthesia?: No Meds Allergies/Adverse Reactions: Allergies Allergy/AdvReac Type Severity Reaction Status Date / Time EGG Allergy DIZZINESS Verified 08/07/16 13:37 - Medications Medications: Current Medications Acetaminophen (Tylenol 650mg/20.3ml Solution Ud) 650 mg PO Q6H PRN PRN Reason: temp.100.4&above;mild pain 1-3 Last Admin: 08/25/16 00:45 Dose: 650 mg Albuterol/Ipratropium (Duoneb 3 Mg/0.5 Mg (3 Ml) Ud) 3 ml INH RQ6 [facility] Last Admin: 09/14/16 13:27 Dose: 3 ml Digoxin (Lanoxin) 0.25 mg PO DAILY@1800 [facility] Last Admin: 09/14/16 18:09 Dose: 0.25 mg Famotidine (Pepcid) 20 mg PO DAILY [facility] Last Admin: 09/14/16 10:50 Dose: 20 mg Furosemide (Lasix) 20 mg PO DAILY [facility] Last Admin: 09/14/16 10:50 Dose: 20 mg Heparin Sodium (Porcine) (Heparin) 5,000 units SC Q12 [facility] Last Admin: 09/14/16 10:49 Dose: 5,000 units Tigecycline 50 mg/ Sodium (Chloride) 100 mls @ 100 mls/hr IVPB Q12H [facility] Last Admin: 09/14/16 11:52 Dose: 100 mls/hr Fluconazole (Diflucan Iv 200 Mg/100 Ml Ns) 100 mls @ 100 mls/hr IVPB DAILY [facility] Last Admin: 09/14/16 10:48 Dose: 100 mls/hr Lisinopril (Zestril) 5 mg PO DAILY [facility] Last Admin: 09/14/16 10:50 Dose: 5 mg Lorazepam (Ativan) 1 mg IVP Q3H PRN PRN Reason: Agitation Last Admin: 09/14/16 10:41 Dose: 1 mg Metoprolol Tartrate (Lopressor) 25 mg PO BID [place] Last Admin: 09/12/16 09:29 Dose: 25 mg Morphine Sulfate (Morphine) 1 mg IV Q4 PRN PRN Reason: Pain, moderate (4-7) Last Admin: 09/14/16 09:44 Dose: 1 mg Physical Exam - Constitutional Appears: No Acute Distress, Chronically Ill - Head Exam Head Exam: NORMAL INSPECTION - ENT Exam Additional comments: on tube feeds ETT in place - Neck Exam Neck exam: Positive for: Normal Inspection - Respiratory Exam Respiratory Exam: NORMAL BREATHING PATTERN (on mechanical ventilation). absent : Respiratory Distress Additional comments: Peep 5, FIO2 40% - Cardiovascular Exam Cardiovascular Exam: +S1, +S2 - GI/Abdominal Exam GI & Abdominal Exam: Soft. absent: Distended - Neurological Exam Neurological exam: Altered (sedated with Ativan) - Skin Skin Exam: Dry, Warm Results - Vital Signs Recent Vital Signs: Last Vital Signs Temp 98.2 F 09/14/16 04:00 Pulse 72 09/14/16 18:09 Resp 19 09/14/16 18:09 BP 111/57 L 09/14/16 18:09 Pulse Ox 87 L 09/14/16 10:58 - Labs Result Diagrams: 09/14/16 11:40 09/14/16 11:40 Labs: Laboratory Results - last 24 hr 09/14/16 09/14/16 09/14/16 11:40 11:40 11:40 WBC 17.0 H D RBC 3.40 L Hgb 11.4 Hct 36.3 MCV 106.9 H D MCH 33.5 H MCHC 31.3 L RDW 16.3 H Plt Count 248 MPV 13.0 H Neut % (Auto) 79.9 H Lymph % (Auto) 13.0 L Hawkins % (Auto) 5.3 Eos % (Auto) 0.4 Baso % (Auto) 1.4 Neut # 13.6 H Lymph # 2.2 Hawkins # 0.9 H Eos # 0.1 Baso # 0.2 PT 13.5 H INR 1.2 APTT 37 H Sodium 139 Potassium 4.7 Chloride 102 Carbon Dioxide 30 Anion Gap 12 BUN 49 H Creatinine 0.6 L Est GFR ( Amer) > 60 Est GFR (Non-Af Amer) > 60 Random Glucose 124 H Calcium 7.8 L Phosphorus 4.1 Magnesium 2.2 Total Bilirubin 0.5 AST 27 ALT 45 Alkaline Phosphatase 296 H D Total Protein 6.4 Albumin 2.4 L D Globulin 3.9 Albumin/Globulin Ratio 0.6 L Assessment & Plan - Assessment and Plan (Free Text) Assessment: 76yo F with PMHx of arthritis, bronchitis, HTN, emphysema, who has respiratory failure and been intubated since 09/02. Surgery is consulted for trach and PEG. - Plan for OR tomorrow for Trach and PEG - Hold tube feeds at midnight - Heparin held tomorrow - Discussed plan with Dr. Baljinder Bush PGY-3 <Osiel Gale - Last Filed: 09/15/16 14:57> Meds - Medications Medications: Current Medications Acetaminophen (Tylenol 650mg/20.3ml Solution Ud) 650 mg PO Q6H PRN PRN Reason: temp.100.4&above;mild pain 1-3 Last Admin: 08/25/16 00:45 Dose: 650 mg Albuterol/Ipratropium (Duoneb 3 Mg/0.5 Mg (3 Ml) Ud) 3 ml INH RQ6 [facility] Last Admin: 09/15/16 13:43 Dose: Not Given Digoxin (Lanoxin) 0.25 mg PO DAILY@1800 [facility] Last Admin: 09/14/16 18:09 Dose: 0.25 mg Famotidine (Pepcid) 20 mg PO DAILY [facility] Last Admin: 09/15/16 10:38 Dose: 20 mg Heparin Sodium (Porcine) (Heparin) 5,000 units SC Q12 [facility] Last Admin: 09/14/16 21:51 Dose: 5,000 units Tigecycline 50 mg/ Sodium (Chloride) 100 mls @ 100 mls/hr IVPB Q12H [facility] Last Admin: 09/15/16 11:50 Dose: 100 mls/hr Fluconazole (Diflucan Iv 200 Mg/100 Ml Ns) 100 mls @ 100 mls/hr IVPB DAILY [facility] Last Admin: 09/15/16 10:33 Dose: 100 mls/hr Sodium Chloride (Sodium Chloride 0.9%) 1,000 mls @ 75 mls/hr IV .[id number] [facility] Last Admin: 09/15/16 10:32 Dose: 75 mls/hr Lisinopril (Zestril) 5 mg PO DAILY [facility] Last Admin: 09/15/16 10:38 Dose: 5 mg Lorazepam (Ativan) 1 mg IVP Q3H PRN PRN Reason: Agitation Last Admin: 09/14/16 22:10 Dose: 1 mg Metoprolol Tartrate (Lopressor) 25 mg PO BID [facility] Last Admin: 09/12/16 09:29 Dose: 25 mg Morphine Sulfate (Morphine) 1 mg IV Q4 PRN PRN Reason: Pain, moderate (4-7) Last Admin: 09/14/16 09:44 Dose: 1 mg Results - Vital Signs Recent Vital Signs: Last Vital Signs Temp 97.3 F L 09/14/16 20:00 Pulse 91 H 09/15/16 07:00 Resp 21 09/15/16 07:00 BP 119/59 L 09/15/16 06:57 Pulse Ox 95 09/15/16 07:00 - Labs Result Diagrams: 09/15/16 10:29 09/15/16 10:29 Labs: Laboratory Results - last 24 hr 09/15/16 09/15/16 09/15/16 05:07 06:18 06:18 WBC 26.2 H D RBC 3.41 L Hgb 11.4 Hct 36.0 MCV 105.6 H MCH 33.3 H MCHC 31.6 L RDW 16.3 H Plt Count 218 MPV 13.1 H Neut % (Auto) 91.4 H Lymph % (Auto) 3.8 L Hawkins % (Auto) 4.6 Eos % (Auto) 0.0 Baso % (Auto) 0.0 Neut # 24.0 H Lymph # 1.0 Hawkins # 1.2 H Eos # 0.0 Baso # 0.1 Neutrophils % (Manual) 89 H Band Neutrophils % 6 H Lymphocytes % (Manual) 2 L Monocytes % (Manual) 3 Platelet Estimate Normal Large Platelets Present Hypochromasia (manual) Anisocytosis (manual) Slight Macrocytosis (manual) Slight Target Cells Tear Drop Cells Heri Cells Puncture Site L bra pCO2 39 pO2 73 L HCO3 29.5 H ABG pH 7.49 H ABG Total CO2 30.9 H ABG O2 Saturation 98.2 H ABG Base Excess 5.9 H ABG Hemoglobin 11.8 ABG Carboxyhemoglobin 2.1 H POC ABG HHb (Measured) 1.7 ABG Methemoglobin 1.3 Seng Test Na A-a O2 Difference 163.0 Respiratory Index 2.2 Hgb O2 Saturation 95.0 Mechanical Rate 16 FiO2 40.0 Tidal Volume 360 PEEP 5 Sodium 135 Potassium 5.0 Chloride 98 Carbon Dioxide 27 Anion Gap 14 BUN 61 H Creatinine 0.9 Est GFR ( Amer) > 60 Est GFR (Non-Af Amer) > 60 Random Glucose 105 Calcium 7.2 L Phosphorus 4.3 Magnesium 2.0 Total Bilirubin 0.8 AST 24 ALT 33 Alkaline Phosphatase 206 H D Total Protein 6.0 L Albumin 2.2 L Globulin 3.8 Albumin/Globulin Ratio 0.6 L Blood Type Antibody Screen 09/15/16 09/15/16 09/15/16 10:29 10:29 10:42 WBC 30.5 H RBC 3.53 L Hgb 11.7 Hct 37.2 MCV 105.5 H MCH 33.1 H MCHC 31.4 L RDW 16.5 H Plt Count 179 MPV 12.5 H Neut % (Auto) 93.4 H Lymph % (Auto) 2.8 L Hawkins % (Auto) 3.4 Eos % (Auto) 0.0 Baso % (Auto) 0.4 Neut # 28.5 H Lymph # 0.8 L Hawkins # 1.0 H Eos # 0.0 Baso # 0.1 Neutrophils % (Manual) 95 H Band Neutrophils % Lymphocytes % (Manual) 1 L Monocytes % (Manual) 4 Platelet Estimate Normal Large Platelets Hypochromasia (manual) Slight Anisocytosis (manual) Slight Macrocytosis (manual) Slight Target Cells Slight Tear Drop Cells Slight [place] Cells Slight Puncture Site pCO2 pO2 HCO3 ABG pH ABG Total CO2 ABG O2 Saturation ABG Base Excess ABG Hemoglobin ABG Carboxyhemoglobin POC ABG HHb (Measured) ABG Methemoglobin Seng Test A-a O2 Difference Respiratory Index Hgb O2 Saturation Mechanical Rate FiO2 Tidal Volume PEEP Sodium 137 Potassium 5.1 Chloride 102 Carbon Dioxide 28 Anion Gap 12 BUN 69 H Creatinine 1.1 Est GFR ( Amer) 58 Est GFR (Non-Af Amer) 48 Random Glucose 116 H Calcium 8.2 L Phosphorus Magnesium Total Bilirubin 0.7 AST 29 ALT 45 Alkaline Phosphatase 231 H Total Protein 6.3 Albumin 2.4 L Globulin 3.9 Albumin/Globulin Ratio 0.6 L Blood Type B POSITIVE Antibody Screen Negative Attending/Attestation - Attestation I have personally seen and examined this patient.: Yes I have fully participated in the care of the patient.: Yes I have reviewed all pertinent clinical information: Yes Notes (Text): 09/15/16 14:48 Pt was seen and examined at bedside on 09/15/16 Agree with above note and assessment Pt with VDRF, Emphysema, PNA, Dysphagia Pt would need Bronchoscopic guided Percutaneous Trach and PEG Placement Plan D/w family in detail Consent NPO, IVF Risk and benefit explained in detail.
[2016-09-15] MEDS: Albuterol-Ipratrop 3 mg / 0.5 (3 ml) UD INH SCH ×4 (02:47→19:47)
[2016-09-15 06:00] LABS: ARTERIAL BLOOD GAS HCO3 29.5 mmol/L (21-28); ARTERIAL BLOOD GAS HEMOGLOBIN 11.8 g/dL (11.7-17.4); ARTERIAL BLOOD GAS O2 SAT 98.2 % (95-98); ARTERIAL BLOOD GAS PCO2 39 mm/Hg (35-45); ARTERIAL BLOOD GAS PH 7.49 (7.35-7.45); ARTERIAL BLOOD GAS PO2 73 mm/Hg (80-100); ARTERIAL BLOOD GAS TCO2 30.9 mmol/L (22-28)
[2016-09-15 06:31] LABS: HEMOGLOBIN 11.4 g/dL (11.0-16.0)
[2016-09-15 06:39] LABS: ALBUMIN 2.2 g/dL (3.5-5.0)
[2016-09-15 06:42] LABS: ALB/GLOB RATIO 0.6 (1.0-2.1); ALT/SGPT 33 U/L (9-52); AST/SGOT 24 U/L (14-36); BLOOD UREA NITROGEN 61 mg/dL (7-17); GFR AFRICAN-AMERICAN > 60; GFR NON-AFRICAN AMERICAN > 60
[2016-09-15 06:43] LABS: CALCIUM 7.2 mg/dl (8.6-10.4)
[2016-09-15 07:41] LABS: MEAN CELL VOLUME 105.6 fL (81.0-99.0); MEAN CORPUSCULAR HEMOGLOBIN 33.3 pg (27.0-31.0); MEAN CORPUSCULAR HGB CONC 31.6 g/dL (33.0-37.0); MEAN PLATELET VOLUME 13.1 fL (7.2-11.7); PLATELET COUNT 218 K/uL (130-400); RBC 3.41 Mil/uL (3.80-5.20); RED CELL DISTRIBUTION WIDTH 16.3 % (11.5-14.5)
[2016-09-15 07:49] LABS: WHITE BLOOD COUNT 26.2 K/uL (4.8-10.8)
--- NOTE | 2016-09-15 08:03 | CP.CCUPN ---
<MorganMargiVincent - Last Filed: 09/15/16 12:14> CCU Subjective - Physician Review Subjective (Free Text): 09/15/16 12:14 Patient examined at bedside in the AM. Patient was not able to speak as she is intubated. CCU Objective - Vital Signs / Intake & Output Vital Signs (Last 4 hours): Vital Signs Pulse Resp BP Pulse Ox 09/15/16 07:00 91 H 21 95 09/15/16 06:57 91 H 19 119/59 L 95 09/15/16 06:00 94 H 24 95 09/15/16 05:58 90 23 99/67 L 96 09/15/16 05:00 94 H 21 95 09/15/16 04:58 94 H 20 109/67 95 Intake and Output (Last 8hrs): Intake & Output 09/14/16 09/15/16 09/15/16 22:59 06:59 14:59 Intake Total 280 195 Output Total 490 105 Balance -210 90 Intake: Intake, IV Amount 100 Right PICC 100 Tube Feeding 280 35 Other 60 Output: Urine 490 105 Urethral (Jones) 490 105 Other: # Bowel Movements 0 - Physical Exam Head: Positive for: Normocephalic. Negative for: Atraumatic Pupils: Positive for: PERRL Extroacular Muscles: Positive for: EOMI Conjunctiva: Positive for: Normal. Negative for: Injected, Icteric Mouth: Positive for: Other (intubated) Nose (External): Positive for: Other (NGT in place- tolerating feeds) Neck: Negative for: JVD, Bruit Respiratory/Chest: Positive for: Good Air Exchange, Other (vent sounds heard throughout). Negative for: Respiratory Distress, Accessory Muscle Use, Wheezes , Retracting, Rhonchi Cardiovascular: Positive for: Regular Rate and Rhythm, Normal S1, S2, Peripheal Pulses Present. Negative for: Murmurs, Irregular Rhythm Abdomen: Positive for: Normal Bowel Sounds. Negative for: Tenderness, Distention, Peritoneal Signs, Rebound, Guarding Upper Extremity: Positive for: Normal Inspection, NORMAL PULSES, Other (mittens in place b/l). Negative for: Edema Lower Extremity: Positive for: NORMAL PULSES. Negative for: Normal Inspection, Edema, Normal ROM Neurological: Positive for: Other (alert and responsive). Negative for: Speech Normal Skin: Positive for: Warm, Dry, Normal Color. Negative for: Rashes Psychiatric: Negative for: Alert, Oriented x 3 - Medications Active Medications: Active Medications Generic Name Dose Route Start Last Admin Trade Name Freq PRN Reason Stop Dose Admin Acetaminophen 650 mg 08/14/16 23:50 08/25/16 00:45 Tylenol 650mg/20.3ml Solution Ud PO 650 mg Q6H PRN Administration temp.100.4&above;mild pain 1-3 Albuterol/Ipratropium 3 ml 08/16/16 14:00 09/15/16 07:54 Duoneb 3 Mg/0.5 Mg (3 Ml) Ud INH 3 ml RQ6 [place] Administration Digoxin 0.25 mg 09/12/16 17:57 09/14/16 18:09 Lanoxin PO 0.25 mg DAILY@1800 [place] Administration Famotidine 20 mg 09/06/16 10:00 09/14/16 10:50 Pepcid PO 20 mg DAILY [place] Administration Furosemide 20 mg 09/05/16 10:00 09/14/16 10:50 Lasix PO 20 mg DAILY [place] Administration Heparin Sodium (Porcine) 5,000 units 09/03/16 10:00 09/14/16 21:51 Heparin SC 5,000 units Q12 [place] Administration Tigecycline 50 mg/ Sodium 100 mls @ 100 mls/hr 09/01/16 12:00 09/14/16 23:40 Chloride IVPB 100 mls/hr Q12H [place] Administration Fluconazole 100 mls @ 100 mls/hr 09/03/16 11:00 09/14/16 10:48 Diflucan Iv 200 Mg/100 Ml Ns IVPB 100 mls/hr DAILY [place] Administration Lisinopril 5 mg 08/17/16 10:00 09/14/16 10:50 Zestril PO 5 mg DAILY [place] Administration Lorazepam 1 mg 09/14/16 10:31 09/14/16 22:10 Ativan IVP 1 mg Q3H PRN Administration Agitation Metoprolol Tartrate 25 mg 08/12/16 18:00 09/12/16 09:29 Lopressor PO 25 mg BID [place] Administration Morphine Sulfate 1 mg 09/13/16 16:22 09/14/16 09:44 Morphine IV 1 mg Q4 PRN Administration Pain, moderate (4-7) - Patient Studies Lab Studies: Lab Studies 09/15/16 09/15/16 09/15/16 Range/Units 06:18 06:18 05:07 WBC 26.2 H D (4.8-10.8) K/uL RBC 3.41 L (3.80-5.20) Mil/uL Hgb 11.4 (11.0-16.0) g/dL Hct 36.0 (34.0-47.0) % MCV 105.6 H (81.0-99.0) fL MCH 33.3 H (27.0-31.0) pg MCHC 31.6 L (33.0-37.0) g/dL RDW 16.3 H (11.5-14.5) % Plt Count 218 (130-400) K/uL MPV 13.1 H (7.2-11.7) fL Neut % (Auto) (50.0-75.0) % Lymph % (Auto) (20.0-40.0) % Emmet % (Auto) (0.0-10.0) % Eos % (Auto) (0.0-4.0) % Baso % (Auto) (0.0-2.0) % Neut # (1.8-7.0) K/uL Lymph # (1.0-4.3) K/uL Emmet # (0.0-0.8) K/uL Eos # (0.0-0.7) K/uL Baso # (0.0-0.2) K/uL PT (9.7-12.2) SECONDS INR APTT (21-34) SECONDS Puncture Site L bra pCO2 39 (35-45) mm/Hg pO2 73 L (80-100) mm/Hg HCO3 29.5 H (21-28) mmol/L ABG pH 7.49 H (7.35-7.45) ABG Total CO2 30.9 H (22-28) mmol/L ABG O2 Saturation 98.2 H (95-98) % ABG Base Excess 5.9 H (-2.0-3.0) mmol/L ABG Hemoglobin 11.8 (11.7-17.4) g/dL ABG Carboxyhemoglobin 2.1 H (0.5-1.5) % POC ABG HHb (Measured) 1.7 (0.0-5.0) % ABG Methemoglobin 1.3 (0.0-3.0) % Seng Test Na A-a O2 Difference 163.0 mm/Hg Respiratory Index 2.2 Hgb O2 Saturation 95.0 (95.0-98.0) % Mechanical Rate 16 FiO2 40.0 % Tidal Volume 360 PEEP 5 Sodium 135 (132-148) mmol/L Potassium 5.0 (3.6-5.2) mmol/L Chloride 98 (98-107) mmol/L Carbon Dioxide 27 (22-30) mmol/L Anion Gap 14 (10-20) BUN 61 H (7-17) mg/dL Creatinine 0.9 (0.7-1.2) MG/DL Est GFR ( Amer) > 60 Est GFR (Non-Af Amer) > 60 Random Glucose 105 (65-105) mg/dL Calcium 7.2 L (8.6-10.4) mg/dl Phosphorus 4.3 (2.5-4.5) mg/dL Magnesium 2.0 (1.6-2.3) mg/dL Total Bilirubin 0.8 (0.2-1.3) mg/dL AST 24 (14-36) U/L ALT 33 (9-52) U/L Alkaline Phosphatase 206 H D (38-126) U/L Total Protein 6.0 L (6.3-8.3) g/dL Albumin 2.2 L (3.5-5.0) g/dL Globulin 3.8 (2.2-3.9) gm/dL Albumin/Globulin Ratio 0.6 L (1.0-2.1) 09/14/16 09/14/16 09/14/16 Range/Units 11:40 11:40 11:40 WBC 17.0 H D (4.8-10.8) K/uL RBC 3.40 L (3.80-5.20) Mil/uL Hgb 11.4 (11.0-16.0) g/dL Hct 36.3 (34.0-47.0) % MCV 106.9 H D (81.0-99.0) fL MCH 33.5 H (27.0-31.0) pg MCHC 31.3 L (33.0-37.0) g/dL RDW 16.3 H (11.5-14.5) % Plt Count 248 (130-400) K/uL MPV 13.0 H (7.2-11.7) fL Neut % (Auto) 79.9 H (50.0-75.0) % Lymph % (Auto) 13.0 L (20.0-40.0) % Emmet % (Auto) 5.3 (0.0-10.0) % Eos % (Auto) 0.4 (0.0-4.0) % Baso % (Auto) 1.4 (0.0-2.0) % Neut # 13.6 H (1.8-7.0) K/uL Lymph # 2.2 (1.0-4.3) K/uL Emmet # 0.9 H (0.0-0.8) K/uL Eos # 0.1 (0.0-0.7) K/uL Baso # 0.2 (0.0-0.2) K/uL PT 13.5 H (9.7-12.2) SECONDS INR 1.2 APTT 37 H (21-34) SECONDS Puncture Site pCO2 (35-45) mm/Hg pO2 (80-100) mm/Hg HCO3 (21-28) mmol/L ABG pH (7.35-7.45) ABG Total CO2 (22-28) mmol/L ABG O2 Saturation (95-98) % ABG Base Excess (-2.0-3.0) mmol/L ABG Hemoglobin (11.7-17.4) g/dL ABG Carboxyhemoglobin (0.5-1.5) % POC ABG HHb (Measured) (0.0-5.0) % ABG Methemoglobin (0.0-3.0) % Seng Test A-a O2 Difference mm/Hg Respiratory Index Hgb O2 Saturation (95.0-98.0) % Mechanical Rate FiO2 % Tidal Volume PEEP Sodium 139 (132-148) mmol/L Potassium 4.7 (3.6-5.2) mmol/L Chloride 102 (98-107) mmol/L Carbon Dioxide 30 (22-30) mmol/L Anion Gap 12 (10-20) BUN 49 H (7-17) mg/dL Creatinine 0.6 L (0.7-1.2) MG/DL Est GFR ( Amer) > 60 Est GFR (Non-Af Amer) > 60 Random Glucose 124 H (65-105) mg/dL Calcium 7.8 L (8.6-10.4) mg/dl Phosphorus 4.1 (2.5-4.5) mg/dL Magnesium 2.2 (1.6-2.3) mg/dL Total Bilirubin 0.5 (0.2-1.3) mg/dL AST 27 (14-36) U/L ALT 45 (9-52) U/L Alkaline Phosphatase 296 H D (38-126) U/L Total Protein 6.4 (6.3-8.3) g/dL Albumin 2.4 L D (3.5-5.0) g/dL Globulin 3.9 (2.2-3.9) gm/dL Albumin/Globulin Ratio 0.6 L (1.0-2.1) Laboratory Results - last 24 hr 09/14/16 09/14/16 09/14/16 11:40 11:40 11:40 WBC 17.0 H D RBC 3.40 L Hgb 11.4 Hct 36.3 MCV 106.9 H D MCH 33.5 H MCHC 31.3 L RDW 16.3 H Plt Count 248 MPV 13.0 H Neut % (Auto) 79.9 H Lymph % (Auto) 13.0 L Emmet % (Auto) 5.3 Eos % (Auto) 0.4 Baso % (Auto) 1.4 Neut # 13.6 H Lymph # 2.2 Emmet # 0.9 H Eos # 0.1 Baso # 0.2 PT 13.5 H INR 1.2 APTT 37 H Puncture Site pCO2 pO2 HCO3 ABG pH ABG Total CO2 ABG O2 Saturation ABG Base Excess ABG Hemoglobin ABG Carboxyhemoglobin POC ABG HHb (Measured) ABG Methemoglobin Seng Test A-a O2 Difference Respiratory Index Hgb O2 Saturation Mechanical Rate FiO2 Tidal Volume PEEP Sodium 139 Potassium 4.7 Chloride 102 Carbon Dioxide 30 Anion Gap 12 BUN 49 H Creatinine 0.6 L Est GFR ( Amer) > 60 Est GFR (Non-Af Amer) > 60 Random Glucose 124 H Calcium 7.8 L Phosphorus 4.1 Magnesium 2.2 Total Bilirubin 0.5 AST 27 ALT 45 Alkaline Phosphatase 296 H D Total Protein 6.4 Albumin 2.4 L D Globulin 3.9 Albumin/Globulin Ratio 0.6 L 09/15/16 09/15/16 09/15/16 05:07 06:18 06:18 WBC 26.2 H D RBC 3.41 L Hgb 11.4 Hct 36.0 MCV 105.6 H MCH 33.3 H MCHC 31.6 L RDW 16.3 H Plt Count 218 MPV 13.1 H Neut % (Auto) Lymph % (Auto) Emmet % (Auto) Eos % (Auto) Baso % (Auto) Neut # Lymph # Emmet # Eos # Baso # PT INR APTT Puncture Site L bra pCO2 39 pO2 73 L HCO3 29.5 H ABG pH 7.49 H ABG Total CO2 30.9 H ABG O2 Saturation 98.2 H ABG Base Excess 5.9 H ABG Hemoglobin 11.8 ABG Carboxyhemoglobin 2.1 H POC ABG HHb (Measured) 1.7 ABG Methemoglobin 1.3 Seng Test Na A-a O2 Difference 163.0 Respiratory Index 2.2 Hgb O2 Saturation 95.0 Mechanical Rate 16 FiO2 40.0 Tidal Volume 360 PEEP 5 Sodium 135 Potassium 5.0 Chloride 98 Carbon Dioxide 27 Anion Gap 14 BUN 61 H Creatinine 0.9 Est GFR ( Amer) > 60 Est GFR (Non-Af Amer) > 60 Random Glucose 105 Calcium 7.2 L Phosphorus 4.3 Magnesium 2.0 Total Bilirubin 0.8 AST 24 ALT 33 Alkaline Phosphatase 206 H D Total Protein 6.0 L Albumin 2.2 L Globulin 3.8 Albumin/Globulin Ratio 0.6 L EKG/Cardiology Studies: Cardiology / EKG Studies 09/15/16 08:02 EKG [ELECTROCARDIOGRAM] Stat Comment: Mode Of Transportation: Reason For Exam: pre-op eval Isolation: Contact Precautions: Standard Review of Systems - Review of Systems Systems not reviewed;Unavailable: Intubated Critical Care Progress Note - Nutrition Nutrition: Nutrition Category Date Time Status NPO Diet [DIET] Diets 09/15/16 Breakfast Active Assessment/Plan - Assessment and Plan (Free Text) Plan: Neuro: - Not alert or oriented - Intubated Pulm: - Albuterol/Ipratropium 3ml INH RQ6 - Trach placement 09/15 - Surgery Consult: Dr. Gale --> help appreciated CV: - Lopressor being held due to bradycardia Heme: - H/H (09/15): 11.7/37.2 Renal: - BUN/Cr (09/15): 69/1.1 GI: - NG tube, feedings - PEG placement 09/15 - Surgery Consult: Dr. Gale --> help appreciated ID: - ID Consult: Dr. Stanley --> help appreciated - Tigecycline 50mg IVPH Q12H - Fluconazole 200Mg/100Ml NS - WBC trending up - to reculture as per Dr. Stanley's note - Sputum culture (08/25): yeast species - Urine Culture (08/29): jones showed vancomycin resistant E. Faecium - Urine Culture (09/10): jones showed no growth DVT proph - SCDs, Heparin 5000 units SC Q12 GI proph - Pepcid 20mg PO daily Code status -DNR/DNI Case discussed with Dr. Gali Morgan PGY-1 <Jes Talbert - Last Filed: 09/15/16 19:17> CCU Objective - Vital Signs / Intake & Output Vital Signs (Last 4 hours): Vital Signs Pulse Resp BP Pulse Ox 09/15/16 18:12 70 20 100/51 L 100 09/15/16 17:43 78 21 83/53 L 98 09/15/16 16:46 77 16 83/53 L 96 09/15/16 16:26 78 16 98/58 L 97 09/15/16 15:26 74 16 101/47 L 96 Intake and Output (Last 8hrs): Intake & Output 09/15/16 09/15/16 09/15/16 06:59 14:59 22:59 Intake Total 195 425 725 Output Total 105 71 220 Balance 90 354 505 Intake: Intake, IV Amount 100 425 725 Right PICC 100 425 725 Tube Feeding 35 Other 60 Output: Gastric Amount 50 200 Stomach 50 200 Urine 105 21 20 Urethral (Jones) 105 21 20 Other: # Bowel Movements 0 - Medications Active Medications: Active Medications Generic Name Dose Route Start Last Admin Trade Name Freq PRN Reason Stop Dose Admin Acetaminophen 650 mg 08/14/16 23:50 08/25/16 00:45 Tylenol 650mg/20.3ml Solution Ud PO 650 mg Q6H PRN Administration temp.100.4&above;mild pain 1-3 Albuterol/Ipratropium 3 ml 08/16/16 14:00 09/15/16 13:43 Duoneb 3 Mg/0.5 Mg (3 Ml) Ud INH Not Given RQ6 [place] Digoxin 0.25 mg 09/12/16 17:57 09/15/16 19:07 Lanoxin PO Not Given DAILY@1800 [place] Famotidine 20 mg 09/06/16 10:00 09/15/16 10:38 Pepcid PO 20 mg DAILY [place] Administration Heparin Sodium (Porcine) 5,000 units 09/03/16 10:00 09/14/16 21:51 Heparin SC 5,000 units Q12 [place] Administration Tigecycline 50 mg/ Sodium 100 mls @ 100 mls/hr 09/01/16 12:00 09/15/16 11:50 Chloride IVPB 100 mls/hr Q12H [place] Administration Fluconazole 100 mls @ 100 mls/hr 09/03/16 11:00 09/15/16 10:33 Diflucan Iv 200 Mg/100 Ml Ns IVPB 100 mls/hr DAILY [place] Administration Sodium Chloride 1,000 mls @ 75 mls/hr 09/15/16 10:00 09/15/16 10:32 Sodium Chloride 0.9% IV 75 mls/hr .[id number] [place] Administration Lisinopril 5 mg 08/17/16 10:00 09/15/16 10:38 Zestril PO 5 mg DAILY [place] Administration Lorazepam 1 mg 09/14/16 10:31 09/14/16 22:10 Ativan IVP 1 mg Q3H PRN Administration Agitation Metoprolol Tartrate 25 mg 08/12/16 18:00 09/12/16 09:29 Lopressor PO 25 mg BID [place] Administration Morphine Sulfate 1 mg 09/13/16 16:22 09/14/16 09:44 Morphine IV 1 mg Q4 PRN Administration Pain, moderate (4-7) - Patient Studies Lab Studies: Lab Studies 09/15/16 09/15/16 09/15/16 Range/Units 10:42 10:29 10:29 WBC 30.5 H (4.8-10.8) K/uL RBC 3.53 L (3.80-5.20) Mil/uL Hgb 11.7 (11.0-16.0) g/dL Hct 37.2 (34.0-47.0) % MCV 105.5 H (81.0-99.0) fL MCH 33.1 H (27.0-31.0) pg MCHC 31.4 L (33.0-37.0) g/dL RDW 16.5 H (11.5-14.5) % Plt Count 179 (130-400) K/uL MPV 12.5 H (7.2-11.7) fL Neut % (Auto) 93.4 H (50.0-75.0) % Lymph % (Auto) 2.8 L (20.0-40.0) % Emmet % (Auto) 3.4 (0.0-10.0) % Eos % (Auto) 0.0 (0.0-4.0) % Baso % (Auto) 0.4 (0.0-2.0) % Neut # 28.5 H (1.8-7.0) K/uL Lymph # 0.8 L (1.0-4.3) K/uL Emmet # 1.0 H (0.0-0.8) K/uL Eos # 0.0 (0.0-0.7) K/uL Baso # 0.1 (0.0-0.2) K/uL Neutrophils % (Manual) 95 H (50-75) % Band Neutrophils % (0-2) % Lymphocytes % (Manual) 1 L (20-40) % Monocytes % (Manual) 4 (0-10) % Platelet Estimate Normal (NORMAL) Large Platelets Hypochromasia (manual) Slight Anisocytosis (manual) Slight Macrocytosis (manual) Slight Target Cells Slight Tear Drop Cells Slight Heri Cells Slight Puncture Site pCO2 (35-45) mm/Hg pO2 (80-100) mm/Hg HCO3 (21-28) mmol/L ABG pH (7.35-7.45) ABG Total CO2 (22-28) mmol/L ABG O2 Saturation (95-98) % ABG Base Excess (-2.0-3.0) mmol/L ABG Hemoglobin (11.7-17.4) g/dL ABG Carboxyhemoglobin (0.5-1.5) % POC ABG HHb (Measured) (0.0-5.0) % ABG Methemoglobin (0.0-3.0) % Seng Test A-a O2 Difference mm/Hg Respiratory Index Hgb O2 Saturation (95.0-98.0) % Mechanical Rate FiO2 % Tidal Volume PEEP Sodium 137 (132-148) mmol/L Potassium 5.1 (3.6-5.2) mmol/L Chloride 102 (98-107) mmol/L Carbon Dioxide 28 (22-30) mmol/L Anion Gap 12 (10-20) BUN 69 H (7-17) mg/dL Creatinine 1.1 (0.7-1.2) MG/DL Est GFR ( Amer) 58 Est GFR (Non-Af Amer) 48 Random Glucose 116 H (65-105) mg/dL Calcium 8.2 L (8.6-10.4) mg/dl Phosphorus (2.5-4.5) mg/dL Magnesium (1.6-2.3) mg/dL Total Bilirubin 0.7 (0.2-1.3) mg/dL AST 29 (14-36) U/L ALT 45 (9-52) U/L Alkaline Phosphatase 231 H (38-126) U/L Total Protein 6.3 (6.3-8.3) g/dL Albumin 2.4 L (3.5-5.0) g/dL Globulin 3.9 (2.2-3.9) gm/dL Albumin/Globulin Ratio 0.6 L (1.0-2.1) Blood Type B POSITIVE Antibody Screen Negative 09/15/16 09/15/16 09/15/16 Range/Units 06:18 06:18 05:07 WBC 26.2 H D (4.8-10.8) K/uL RBC 3.41 L (3.80-5.20) Mil/uL Hgb 11.4 (11.0-16.0) g/dL Hct 36.0 (34.0-47.0) % MCV 105.6 H (81.0-99.0) fL MCH 33.3 H (27.0-31.0) pg MCHC 31.6 L (33.0-37.0) g/dL RDW 16.3 H (11.5-14.5) % Plt Count 218 (130-400) K/uL MPV 13.1 H (7.2-11.7) fL Neut % (Auto) 91.4 H (50.0-75.0) % Lymph % (Auto) 3.8 L (20.0-40.0) % Emmet % (Auto) 4.6 (0.0-10.0) % Eos % (Auto) 0.0 (0.0-4.0) % Baso % (Auto) 0.0 (0.0-2.0) % Neut # 24.0 H (1.8-7.0) K/uL Lymph # 1.0 (1.0-4.3) K/uL Emmet # 1.2 H (0.0-0.8) K/uL Eos # 0.0 (0.0-0.7) K/uL Baso # 0.1 (0.0-0.2) K/uL Neutrophils % (Manual) 89 H (50-75) % Band Neutrophils % 6 H (0-2) % Lymphocytes % (Manual) 2 L (20-40) % Monocytes % (Manual) 3 (0-10) % Platelet Estimate Normal (NORMAL) Large Platelets Present Hypochromasia (manual) Anisocytosis (manual) Slight Macrocytosis (manual) Slight Target Cells Tear Drop Cells Heri Cells Puncture Site L bra pCO2 39 (35-45) mm/Hg pO2 73 L (80-100) mm/Hg HCO3 29.5 H (21-28) mmol/L ABG pH 7.49 H (7.35-7.45) ABG Total CO2 30.9 H (22-28) mmol/L ABG O2 Saturation 98.2 H (95-98) % ABG Base Excess 5.9 H (-2.0-3.0) mmol/L ABG Hemoglobin 11.8 (11.7-17.4) g/dL ABG Carboxyhemoglobin 2.1 H (0.5-1.5) % POC ABG HHb (Measured) 1.7 (0.0-5.0) % ABG Methemoglobin 1.3 (0.0-3.0) % Seng Test Na A-a O2 Difference 163.0 mm/Hg Respiratory Index 2.2 Hgb O2 Saturation 95.0 (95.0-98.0) % Mechanical Rate 16 FiO2 40.0 % Tidal Volume 360 PEEP 5 Sodium 135 (132-148) mmol/L Potassium 5.0 (3.6-5.2) mmol/L Chloride 98 (98-107) mmol/L Carbon Dioxide 27 (22-30) mmol/L Anion Gap 14 (10-20) BUN 61 H (7-17) mg/dL Creatinine 0.9 (0.7-1.2) MG/DL Est GFR ( Amer) > 60 Est GFR (Non-Af Amer) > 60 Random Glucose 105 (65-105) mg/dL Calcium 7.2 L (8.6-10.4) mg/dl Phosphorus 4.3 (2.5-4.5) mg/dL Magnesium 2.0 (1.6-2.3) mg/dL Total Bilirubin 0.8 (0.2-1.3) mg/dL AST 24 (14-36) U/L ALT 33 (9-52) U/L Alkaline Phosphatase 206 H D (38-126) U/L Total Protein 6.0 L (6.3-8.3) g/dL Albumin 2.2 L (3.5-5.0) g/dL Globulin 3.8 (2.2-3.9) gm/dL Albumin/Globulin Ratio 0.6 L (1.0-2.1) Blood Type Antibody Screen Laboratory Results - last 24 hr 09/15/16 09/15/16 09/15/16 05:07 06:18 06:18 WBC 26.2 H D RBC 3.41 L Hgb 11.4 Hct 36.0 MCV 105.6 H MCH 33.3 H MCHC 31.6 L RDW 16.3 H Plt Count 218 MPV 13.1 H Neut % (Auto) 91.4 H Lymph % (Auto) 3.8 L Emmet % (Auto) 4.6 Eos % (Auto) 0.0 Baso % (Auto) 0.0 Neut # 24.0 H Lymph # 1.0 Emmet # 1.2 H Eos # 0.0 Baso # 0.1 Neutrophils % (Manual) 89 H Band Neutrophils % 6 H Lymphocytes % (Manual) 2 L Monocytes % (Manual) 3 Platelet Estimate Normal Large Platelets Present Hypochromasia (manual) Anisocytosis (manual) Slight Macrocytosis (manual) Slight Target Cells Tear Drop Cells Dumont Cells Puncture Site L bra pCO2 39 pO2 73 L HCO3 29.5 H ABG pH 7.49 H ABG Total CO2 30.9 H ABG O2 Saturation 98.2 H ABG Base Excess 5.9 H ABG Hemoglobin 11.8 ABG Carboxyhemoglobin 2.1 H POC ABG HHb (Measured) 1.7 ABG Methemoglobin 1.3 Seng Test Na A-a O2 Difference 163.0 Respiratory Index 2.2 Hgb O2 Saturation 95.0 Mechanical Rate 16 FiO2 40.0 Tidal Volume 360 PEEP 5 Sodium 135 Potassium 5.0 Chloride 98 Carbon Dioxide 27 Anion Gap 14 BUN 61 H Creatinine 0.9 Est GFR ( Amer) > 60 Est GFR (Non-Af Amer) > 60 Random Glucose 105 Calcium 7.2 L Phosphorus 4.3 Magnesium 2.0 Total Bilirubin 0.8 AST 24 ALT 33 Alkaline Phosphatase 206 H D Total Protein 6.0 L Albumin 2.2 L Globulin 3.8 Albumin/Globulin Ratio 0.6 L Blood Type Antibody Screen 09/15/16 09/15/16 09/15/16 10:29 10:29 10:42 WBC 30.5 H RBC 3.53 L Hgb 11.7 Hct 37.2 MCV 105.5 H MCH 33.1 H MCHC 31.4 L RDW 16.5 H Plt Count 179 MPV 12.5 H Neut % (Auto) 93.4 H Lymph % (Auto) 2.8 L Emmet % (Auto) 3.4 Eos % (Auto) 0.0 Baso % (Auto) 0.4 Neut # 28.5 H Lymph # 0.8 L Emmet # 1.0 H Eos # 0.0 Baso # 0.1 Neutrophils % (Manual) 95 H Band Neutrophils % Lymphocytes % (Manual) 1 L Monocytes % (Manual) 4 Platelet Estimate Normal Large Platelets Hypochromasia (manual) Slight Anisocytosis (manual) Slight Macrocytosis (manual) Slight Target Cells Slight Tear Drop Cells Slight Heri Cells Slight Puncture Site pCO2 pO2 HCO3 ABG pH ABG Total CO2 ABG O2 Saturation ABG Base Excess ABG Hemoglobin ABG Carboxyhemoglobin POC ABG HHb (Measured) ABG Methemoglobin Seng Test A-a O2 Difference Respiratory Index Hgb O2 Saturation Mechanical Rate FiO2 Tidal Volume PEEP Sodium 137 Potassium 5.1 Chloride 102 Carbon Dioxide 28 Anion Gap 12 BUN 69 H Creatinine 1.1 Est GFR ( Amer) 58 Est GFR (Non-Af Amer) 48 Random Glucose 116 H Calcium 8.2 L Phosphorus Magnesium Total Bilirubin 0.7 AST 29 ALT 45 Alkaline Phosphatase 231 H Total Protein 6.3 Albumin 2.4 L Globulin 3.9 Albumin/Globulin Ratio 0.6 L Blood Type B POSITIVE Antibody Screen Negative EKG/Cardiology Studies: Cardiology / EKG Studies 09/15/16 08:02 EKG [ELECTROCARDIOGRAM] Stat Comment: Mode Of Transportation: Reason For Exam: pre-op eval Isolation: Contact Precautions: Standard Critical Care Progress Note - Nutrition Nutrition: Nutrition Category Date Time Status NPO Diet [DIET] Diets 09/15/16 Breakfast Active Assessment/Plan (1) Arrhythmia Current Visit: Yes Status: Resolved (2) Closed fracture of greater trochanter of left femur Current Visit: Yes Status: Acute (3) Contusion of head Current Visit: Yes Status: Acute (4) Fall Current Visit: Yes Status: Acute Attending/Attestation - Attestation I have personally seen and examined this patient.: Yes I have fully participated in the care of the patient.: Yes I have reviewed all pertinent clinical information: Yes Notes (Text): 09/15/16 19:17 agree with above note during rounds in the am pt was examined and clinical decision was made and discussed with icu team
[2016-09-15 09:42] LABS: NEUT % 91.4 % (50.0-75.0)
[2016-09-15 09:43] LABS: BASO # 0.1 K/uL (0.0-0.2); LYMPH % 3.8 % (20.0-40.0); MONO # 1.2 K/uL (0.0-0.8); MONO % 4.6 % (0.0-10.0)
[2016-09-15 09:46] LABS: BANDS 6 % (0-2); LYMPHOCYTE 2 % (20-40); MONOCYTE 3 % (0-10); NEUTROPHIL 89 % (50-75); PLATELET ESTIMATE NORMAL (NORMAL); TOTAL CELLS COUNTED 100
[2016-09-15 09:47] LABS: ANISOCYTOSIS SLIGHT; LARGE PLATELETS PRESENT
[2016-09-15] MEDS ORDERED: Sodium Chloride 0.9% 1,000 ML IV SCH (10:00)
[2016-09-15] MEDS: Fluconazole IV 200mg/100 ml NS 100 ML IVPB SCH (10:33)
[2016-09-15 10:41] LABS: BASO # 0.1 K/uL (0.0-0.2); BASO % 0.4 % (0.0-2.0); HEMOGLOBIN 11.7 g/dL (11.0-16.0); LYMPH # 0.8 K/uL (1.0-4.3); LYMPH % 2.8 % (20.0-40.0); MEAN CELL VOLUME 105.5 fL (81.0-99.0); MEAN CORPUSCULAR HEMOGLOBIN 33.1 pg (27.0-31.0); MEAN CORPUSCULAR HGB CONC 31.4 g/dL (33.0-37.0); MEAN PLATELET VOLUME 12.5 fL (7.2-11.7); MONO % 3.4 % (0.0-10.0); NEUT # 28.5 K/uL (1.8-7.0); NEUT % 93.4 % (50.0-75.0); PLATELET COUNT 179 K/uL (130-400); RBC 3.53 Mil/uL (3.80-5.20); RED CELL DISTRIBUTION WIDTH 16.5 % (11.5-14.5); WHITE BLOOD COUNT 30.5 K/uL (4.8-10.8)
[2016-09-15 10:48] LABS: ALBUMIN 2.4 g/dL (3.5-5.0)
[2016-09-15 10:51] LABS: ALB/GLOB RATIO 0.6 (1.0-2.1)
[2016-09-15 10:52] LABS: CALCIUM 8.2 mg/dl (8.6-10.4)
[2016-09-15 11:04] LABS: LYMPHOCYTE 1 % (20-40); MONOCYTE 4 % (0-10); NEUTROPHIL 95 % (50-75); TOTAL CELLS COUNTED 100
[2016-09-15 11:05] LABS: ANISOCYTOSIS SLIGHT; PLATELET ESTIMATE NORMAL (NORMAL)
[2016-09-15 11:06] LABS: BURR CELLS SLIGHT; HYPOCHROMIC SLIGHT; TARGET CELLS SLIGHT; TEARDROP CELLS SLIGHT
--- NOTE | 2016-09-15 11:40 | RAD ---
HISTORY: vented COMPARISON: 09/12/2016 FINDINGS: LUNGS: Pulmonary hyperinflation. No acute infiltrate. Previous patchy opacity at right base is no longer evident. PLEURA: No significant pleural effusion identified, no pneumothorax apparent. CARDIOVASCULAR: Normal heart size. ET tube, NG tube and right PICC catheter are grossly unchanged. OSSEOUS STRUCTURES: No significant abnormalities. VISUALIZED UPPER ABDOMEN: Normal. OTHER FINDINGS: None. IMPRESSION: No acute infiltrate. Lines and tubes unchanged.
[2016-09-15] MEDS ORDERED: Midazolam 2 MG/2 ML VIAL ONE (12:40)
[2016-09-15] MEDS ORDERED: Sodium Chloride 0.9% 1,000 ML IV ONE (12:50)
[2016-09-15] MEDS: Lidocaine 1% Inj (20ml) ONE ×2 (14:05→14:20)
[2016-09-15] MEDS: Bupivacaine-Epi 0.25%-1:200,000 PF Inj ONE ×2 (14:05→14:20)
--- NOTE | 2016-09-15 15:08 | PCM.SURG1 ---
Surgeon's Initial Post Op Note - Surgeon's Notes Surgeon: Maxine Gale MD Gauger Delivery: Tess Type of Anesthesia: General Endo Pre-Operative Diagnosis: Acute respiratory failure requiring skilled nursing mechanical ventilation and failure to thrive Operative Findings: See op report Post-Operative Diagnosis: Acute respiratory failure requiring terminal clerk mechanical ventilation and failure to thrive Operation Performed: Diagnostic bronchoscopy with lavage, percutaneous tracheostomy, EGD, PEG tube placement Specimen/Specimens Removed: None Estimated Blood Loss: EBL {In ML}: 10 Blood Products Given: N/A Drains Used: No Drains Post-Op Condition: Fair Date of Surgery/Procedure: 09/15/16 Time of Surgery/Procedure: 13:35
--- NOTE | 2016-09-15 15:10 | RAD ---
HISTORY: s/p trach placement COMPARISON: No prior. FINDINGS: LUNGS: ETT has been removed and replaced with tracheostomy tube in good position. No change right-sided PICC line with tip in the SVC. . Hyperinflation. Patchy bilateral atelectatic and or infiltrate changes of within the mid to lower lung kerns. PLEURA: No significant pleural effusion identified, no pneumothorax apparent. CARDIOVASCULAR: Heart remains enlarged. OSSEOUS STRUCTURES: Multilevel degenerative spondylosis. VISUALIZED UPPER ABDOMEN: Normal. OTHER FINDINGS: None. IMPRESSION: ETT has been removed and replaced tracheostomy tube in good position. No change right-sided PICC line. Hyperinflation. Patchy atelectasis and or infiltrate changes within the mid to lower lung kerns.
[2016-09-15] MEDS ORDERED: Sodium Chloride 0.9% 500 ML IV ONE (17:43)
[2016-09-15] MEDS: Digoxin 250 mcg (0.25 mg) Tab PO SCH (19:07)
[2016-09-15] MEDS: Sodium Chloride 0.9% 1,000 ML IV SCH (20:01)
[2016-09-15 20:18] LABS: MEAN CELL VOLUME 105.3 fL (81.0-99.0); MEAN CORPUSCULAR HEMOGLOBIN 34.4 pg (27.0-31.0); MEAN CORPUSCULAR HGB CONC 32.7 g/dL (33.0-37.0); MEAN PLATELET VOLUME 12.3 fL (7.2-11.7); PLATELET COUNT 135 K/uL (130-400); RED CELL DISTRIBUTION WIDTH 16.3 % (11.5-14.5); WHITE BLOOD COUNT 28.5 K/uL (4.8-10.8)
[2016-09-15 20:24] LABS: ALB/GLOB RATIO 0.6 (1.0-2.1)
[2016-09-15 20:25] LABS: CALCIUM 7.4 mg/dl (8.6-10.4); MAGNESIUM 2.5 mg/dL (1.6-2.3)
[2016-09-15 20:41] LABS: LYMPH # 0.6 K/uL (1.0-4.3); MONO # 1.7 K/uL (0.0-0.8)
[2016-09-15 20:54] LABS: ANISOCYTOSIS SLIGHT; BANDS 22 % (0-2); HYPOCHROMIC SLIGHT; LYMPHOCYTE 1 % (20-40); MONOCYTE 3 % (0-10); NEUTROPHIL 74 % (50-75); PLATELET ESTIMATE NORMAL (NORMAL); POIKILOCYTOSIS SLIGHT; TOTAL CELLS COUNTED 100
[2016-09-15] MEDS ORDERED: Micafungin 100 MG in Sodium Chloride 0.9% 100 ML IV SCH (22:30)
[2016-09-15] MEDS: Linezolid 600 mg in D5W 300 ml 600 MG/300 ML BAG IVPB SCH (23:12)
[2016-09-15] MEDS: Micafungin 100 MG in Sodium Chloride 0.9% 100 ML IV SCH (23:12)
[2016-09-15] MEDS: Cefepime IV 1 gm in Dextrose 1 GM/50 ML BAG IVPB SCH (23:12)
--- NOTE | 2016-09-15 23:20 | CP.PCM.PN ---
Subjective - Date & Time of Evaluation Date of Evaluation: 09/15/16 Time of Evaluation: 20:30 - Subjective Subjective: Patient had tracheostomy and PEG insertion today. Lethargic, hypotensive with a marked leucocytosis. To change Martinez catheter and do blood and urine cultures. Objective - Vital Signs/Intake and Output Vital Signs (last 24 hours): Temp Pulse Resp BP Pulse Ox 97.3 F L 70 20 80/42 L 100 09/14/16 20:00 09/15/16 20:12 09/15/16 20:12 09/15/16 20:12 09/15/16 20:12 Intake and Output: 09/15/16 09/16/16 18:59 06:59 Intake Total 1150 175 Output Total 291 Balance 859 175 - Medications Medications: Current Medications Acetaminophen (Tylenol 650mg/20.3ml Solution Ud) 650 mg PO Q6H PRN PRN Reason: temp.100.4&above;mild pain 1-3 Last Admin: 08/25/16 00:45 Dose: 650 mg Albuterol/Ipratropium (Duoneb 3 Mg/0.5 Mg (3 Ml) Ud) 3 ml INH RQ6 [facility] Last Admin: 09/15/16 19:47 Dose: 3 ml Digoxin (Lanoxin) 0.25 mg PO DAILY@1800 [facility] Last Admin: 09/15/16 19:07 Dose: Not Given Famotidine (Pepcid) 20 mg PO DAILY [facility] Last Admin: 09/15/16 10:38 Dose: 20 mg Heparin Sodium (Porcine) (Heparin) 5,000 units SC Q12 [facility] Last Admin: 09/14/16 21:51 Dose: 5,000 units Sodium Chloride (Sodium Chloride 0.9%) 1,000 mls @ 100 mls/hr IV .Q10H [facility] Last Admin: 09/15/16 20:01 Dose: 100 mls/hr Cefepime HCl (Maxipime Iv 1 Gm Premix) 1 gm in 50 mls @ 100 mls/hr IVPB Q12H [facility] Last Admin: 09/15/16 23:12 Dose: 100 mls/hr Linezolid (Zyvox 600mg/300ml D5w) 600 mg in 300 mls @ 200 mls/hr IVPB Q12 [facility] Last Admin: 09/15/16 23:12 Dose: 200 mls/hr Micafungin Sodium 100 mg/ (Sodium Chloride) 100 mls @ 100 mls/hr IV Q24H [facility] Last Admin: 09/15/16 23:12 Dose: 100 mls/hr Lisinopril (Zestril) 5 mg PO DAILY [facility] Last Admin: 09/15/16 10:38 Dose: 5 mg Lorazepam (Ativan) 1 mg IVP Q3H PRN PRN Reason: Agitation Last Admin: 09/14/16 22:10 Dose: 1 mg Metoprolol Tartrate (Lopressor) 25 mg PO BID [facility] Last Admin: 09/12/16 09:29 Dose: 25 mg Morphine Sulfate (Morphine) 1 mg IV Q4 PRN PRN Reason: Pain, moderate (4-7) Last Admin: 09/14/16 09:44 Dose: 1 mg - Labs Labs: 09/15/16 20:11 09/15/16 20:11 PT 13.5 SECONDS (9.7-12.2) H 09/14/16 11:40 INR 1.2 09/14/16 11:40 APTT 37 SECONDS (21-34) H 09/14/16 11:40 - Constitutional Appears: Chronically Ill - Head Exam Head Exam: NORMAL INSPECTION - Eye Exam Eye Exam: Normal appearance - ENT Exam ENT Exam: Normal Exam - Neck Exam Neck Exam: Normal Inspection - Respiratory Exam Additional comments: Rhonchi heard bibasilarly. - Cardiovascular Exam Cardiovascular Exam: Irregular Rhythm - GI/Abdominal Exam GI & Abdominal Exam: Soft, Normal Bowel Sounds - Rectal Exam Rectal Exam: Deferred - Extremities Exam Additional comments: No edema. - Back Exam Back Exam: NORMAL INSPECTION - Neurological Exam Additional comments: Lethargic with a tracheostomy. Assessment and Plan (1) Closed fracture of greater trochanter of left femur Status: Acute (2) Dehydration Status: Resolved (3) Sepsis Assessment & Plan: R/o sepsis. Status: Acute (4) Fall Status: Acute (5) Arrhythmia Status: Resolved (6) Contusion of head Status: Acute (7) Garden grade IV closed subcapital fracture of proximal end of right femur Status: Acute (8) CHF exacerbation Status: Resolved (9) Acute respiratory failure Status: Acute (10) Pleural effusion, right Status: Resolved (11) Right middle lobe pneumonia Status: Acute (12) VRE (vancomycin resistant enterococcus) culture positive Status: Acute
[2016-09-16] MEDS ORDERED: Sodium Chloride 0.9% 500 ML IV ONE (00:21)
[2016-09-16] MEDS: Albuterol-Ipratrop 3 mg / 0.5 (3 ml) UD INH SCH ×4 (01:03→20:03)
[2016-09-16 06:20] LABS: MONO # 1.1 K/uL (0.0-0.8); RBC 3.27 Mil/uL (3.80-5.20)
[2016-09-16 06:31] LABS: BASO # 0.2 K/uL (0.0-0.2); BASO % 0.6 % (0.0-2.0); LYMPH # 0.6 K/uL (1.0-4.3); LYMPH % 2.2 % (20.0-40.0); MEAN CELL VOLUME 106.9 fL (81.0-99.0); MEAN CORPUSCULAR HEMOGLOBIN 33.6 pg (27.0-31.0); MEAN CORPUSCULAR HGB CONC 31.5 g/dL (33.0-37.0); MEAN PLATELET VOLUME 12.8 fL (7.2-11.7); NEUT # 25.8 K/uL (1.8-7.0); NEUT % 93.2 % (50.0-75.0); NRBC % 0.1 % (0.0-2.0); PLATELET COUNT 117 K/uL (130-400); RED CELL DISTRIBUTION WIDTH 16.7 % (11.5-14.5); WHITE BLOOD COUNT 27.7 K/uL (4.8-10.8)
[2016-09-16] MEDS: Sodium Chloride 0.9% 1,000 ML IV SCH (06:34)
[2016-09-16 06:38] LABS: ALB/GLOB RATIO 0.6 (1.0-2.1)
[2016-09-16 06:39] LABS: CALCIUM 7.1 mg/dl (8.6-10.4); MAGNESIUM 2.5 mg/dL (1.6-2.3)
[2016-09-16] MEDS ORDERED: Dextrose 50% SYRINGE Inj (50 ml) IV STA ×4 (07:18→23:01)
[2016-09-16 08:43] LABS: ARTERIAL BLOOD GAS HCO3 14.8 mmol/L (21-28); ARTERIAL BLOOD GAS O2 SAT 100.2 % (95-98); ARTERIAL BLOOD GAS PCO2 32 mm/Hg (35-45); ARTERIAL BLOOD GAS PH 7.23 (7.35-7.45); ARTERIAL BLOOD GAS PO2 132 mm/Hg (80-100); ARTERIAL BLOOD GAS TCO2 14.4 mmol/L (22-28)
[2016-09-16 08:46] LABS: BANDS 28 % (0-2); LYMPHOCYTE 1 % (20-40); MONOCYTE 2 % (0-10); NEUTROPHIL 69 % (50-75); TOTAL CELLS COUNTED 100
[2016-09-16 08:47] LABS: ANISOCYTOSIS SLIGHT; HYPOCHROMIC SLIGHT; PLATELET ESTIMATE SLIGHTLY DECREASED (NORMAL); POIKILOCYTOSIS SLIGHT; TEARDROP CELLS SLIGHT
[2016-09-16 08:48] LABS: LARGE PLATELETS PRESENT
--- NOTE | 2016-09-16 08:53 | CP.PCM.PN ---
<Consuelo Barnhart - Last Filed: 09/16/16 09:58> Subjective - Date & Time of Evaluation Date of Evaluation: 09/16/16 Time of Evaluation: 07:30 - Subjective Subjective: General sx progress note for Dr. Gale- Consuelo Barnhart, PGY-1 Pt S & E at bedside. Pt lethargic this AM. Per nursing, pt placed on Levophed overnight due to hypotension. Objective - Vital Signs/Intake and Output Vital Signs (last 24 hours): Temp Pulse Resp BP Pulse Ox 98 F 115 H 27 H 85/56 L 86 L 09/16/16 06:30 09/16/16 08:19 09/16/16 08:19 09/16/16 08:19 09/16/16 08:19 Intake and Output: 09/16/16 09/16/16 06:59 18:59 Intake Total 2139 350 Output Total 160 0 Balance 1979 350 - Medications Medications: Current Medications Acetaminophen (Tylenol 650mg/20.3ml Solution Ud) 650 mg PO Q6H PRN PRN Reason: temp.100.4&above;mild pain 1-3 Last Admin: 08/25/16 00:45 Dose: 650 mg Albuterol/Ipratropium (Duoneb 3 Mg/0.5 Mg (3 Ml) Ud) 3 ml INH RQ6 [facility] Last Admin: 09/16/16 08:02 Dose: 3 ml Digoxin (Lanoxin) 0.25 mg PO DAILY@1800 [facility] Last Admin: 09/15/16 19:07 Dose: Not Given Famotidine (Pepcid) 20 mg PO DAILY [facility] Last Admin: 09/15/16 10:38 Dose: 20 mg Heparin Sodium (Porcine) (Heparin) 5,000 units SC Q12 [facility] Last Admin: 09/14/16 21:51 Dose: 5,000 units Sodium Chloride (Sodium Chloride 0.9%) 1,000 mls @ 100 mls/hr IV .Q10H [facility] Last Admin: 09/16/16 06:34 Dose: 100 mls/hr Cefepime HCl (Maxipime Iv 1 Gm Premix) 1 gm in 50 mls @ 100 mls/hr IVPB Q12H [facility] Last Admin: 09/15/16 23:12 Dose: 100 mls/hr Linezolid (Zyvox 600mg/300ml D5w) 600 mg in 300 mls @ 200 mls/hr IVPB Q12 [facility] Last Admin: 09/15/16 23:12 Dose: 200 mls/hr Micafungin Sodium 100 mg/ (Sodium Chloride) 100 mls @ 100 mls/hr IV Q24H [facility] Last Admin: 09/15/16 23:12 Dose: 100 mls/hr Norepinephrine Bitartrate 4 mg (/ Sodium Chloride) 254 mls @ 15.24 mls/hr IV .[id number] PRN; Protocol; 4 MCG/MIN PRN Reason: TITRATE PER MD ORDER Last Titration: 09/16/16 06:10 Dose: 20 mcg/min, 76.2 mls/hr Lisinopril (Zestril) 5 mg PO DAILY [facility] Last Admin: 09/15/16 10:38 Dose: 5 mg Lorazepam (Ativan) 1 mg IVP Q3H PRN PRN Reason: Agitation Last Admin: 09/14/16 22:10 Dose: 1 mg Metoprolol Tartrate (Lopressor) 25 mg PO BID [facility] Last Admin: 09/12/16 09:29 Dose: 25 mg Morphine Sulfate (Morphine) 1 mg IV Q4 PRN PRN Reason: Pain, moderate (4-7) Last Admin: 09/14/16 09:44 Dose: 1 mg - Labs Labs: 09/16/16 06:11 09/16/16 06:11 PT 13.5 SECONDS (9.7-12.2) H 09/14/16 11:40 INR 1.2 09/14/16 11:40 APTT 37 SECONDS (21-34) H 09/14/16 11:40 - Constitutional Appears: Toxic, Cachectic - Head Exam Head Exam: ATRAUMATIC, NORMAL INSPECTION, NORMOCEPHALIC - Eye Exam Eye Exam: EOMI, Normal appearance - ENT Exam Additional comments: unable to assess, pt would not open mouth - Neck Exam Additional comments: tracheostomy in place, no bleeding or drainage noted- area clean, dry; on mech vent; PRVC RR 20, PEEP 5, TV 400, FiO2 100% - Respiratory Exam Respiratory Exam: Decreased Breath Sounds (over right lower lung kerns), Clear to Ausculation Bilateral. absent: Respiratory Distress, NORMAL BREATHING PATTERN (tachypneic) - Cardiovascular Exam Cardiovascular Exam: Tachycardia - GI/Abdominal Exam GI & Abdominal Exam: Firm, Hypoactive Bowel Sounds. absent: Distended, Guarding , Rigid, Soft, Normal Bowel Sounds Additional comments: PEG tube in place- non bloody, non erythematous. Draining ~400cc bilious liquid gastric contents since placement - Exam Additional comments: Martinez in place, poor UOP- ~50cc/12hrs - Extremities Exam Extremities Exam: absent: Pedal Edema Additional comments: Right foot mottled, feet warm B/L, air boots in place - Neurological Exam Neurological Exam: Awake Additional comments: Does not follow simple commands, does not track with eyes - Psychiatric Exam Additional comments: trach in place, non verbal - Skin Skin Exam: Dry, Intact, Mottled (Right foot), Warm. absent: Normal Color Assessment and Plan - Assessment and Plan (Free Text) Assessment: 76F POD#1 s/p PEG and trach placement due to acute respiratory failure with need for chronic mechanical ventilation and failure to thrive, now on pressor support, continuing to require ICU care. Plan: Assess trach site for bleeding Will remove trach site sutures on POD#10 Monitor PEG tube output Continue to hold tube feeds Will FU tube study with ab x-ray Further mgmt as per ICU Will DW attending [place], PGY-1 <Osiel Gale B - Last Filed: 09/16/16 16:34> Objective - Vital Signs/Intake and Output Vital Signs (last 24 hours): Temp Pulse Resp BP Pulse Ox 98.4 F 113 H 24 91/75 L 100 09/16/16 12:00 09/16/16 16:05 09/16/16 16:05 09/16/16 16:05 09/16/16 16:05 Intake and Output: 09/16/16 09/16/16 06:59 18:59 Intake Total 2139 2522.3 Output Total 160 0 Balance 1979 2522.3 - Medications Medications: Current Medications Acetaminophen (Tylenol 650mg/20.3ml Solution Ud) 650 mg PO Q6H PRN PRN Reason: temp.100.4&above;mild pain 1-3 Last Admin: 08/25/16 00:45 Dose: 650 mg Albuterol/Ipratropium (Duoneb 3 Mg/0.5 Mg (3 Ml) Ud) 3 ml INH RQ6 [place] Last Admin: 09/16/16 13:07 Dose: 3 ml Digoxin (Lanoxin) 0.25 mg IVP DAILY@1800 [place] Famotidine (Pepcid) 20 mg IVP DAILY [facility] Last Admin: 09/16/16 10:32 Dose: 20 mg Heparin Sodium (Porcine) (Heparin) 5,000 units SC Q12 [facility] Last Admin: 09/14/16 21:51 Dose: 5,000 units Cefepime HCl (Maxipime Iv 1 Gm Premix) 1 gm in 50 mls @ 100 mls/hr IVPB Q12H [facility] Last Admin: 09/16/16 10:32 Dose: 100 mls/hr Linezolid (Zyvox 600mg/300ml D5w) 600 mg in 300 mls @ 200 mls/hr IVPB Q12 [facility] Last Admin: 09/16/16 14:24 Dose: 200 mls/hr Micafungin Sodium 100 mg/ (Sodium Chloride) 100 mls @ 100 mls/hr IV Q24H [facility] Last Admin: 09/15/16 23:12 Dose: 100 mls/hr Norepinephrine Bitartrate 4 mg (/ Sodium Chloride) 254 mls @ 15.24 mls/hr IV .[id number] PRN; Protocol; 4 MCG/MIN PRN Reason: TITRATE PER MD ORDER Last Admin: 09/16/16 12:09 Dose: 20 mcg/min, 76.2 mls/hr Phenylephrine HCl 30 mg/ (Dextrose) 253 mls @ 10.12 mls/hr IV .Q24H PRN; Protocol; 20 MCG/MIN PRN Reason: TITRATE PER MD ORDER Last Admin: 09/16/16 13:32 Dose: 180 mcg/min, 91.08 mls/hr Dopamine HCl/Dextrose (Dopamine 400mg/250ml D5w) 400 mg in 250 mls @ 3.75 mls/ hr IV .Q24H PRN; Protocol; 2 MCG/KG/MIN PRN Reason: TITRATE PER MD ORDER Last Titration: 09/16/16 15:00 Dose: 10 mcg/kg/min, 18.75 mls/hr Dextrose (Dextrose 10% In Water) 1,000 mls @ 30 mls/hr IV .Q24H [facility] Last Admin: 09/16/16 11:40 Dose: 30 mls/hr Lisinopril (Zestril) 5 mg PO DAILY [facility] Last Admin: 09/16/16 10:22 Dose: Not Given Lorazepam (Ativan) 1 mg IVP Q3H PRN PRN Reason: Agitation Last Admin: 09/14/16 22:10 Dose: 1 mg Metoprolol Tartrate (Lopressor) 25 mg PO BID [place] Last Admin: 09/12/16 09:29 Dose: 25 mg Morphine Sulfate (Morphine) 1 mg IV Q4 PRN PRN Reason: Pain, moderate (4-7) Last Admin: 09/14/16 09:44 Dose: 1 mg - Labs Labs: 09/16/16 06:11 09/16/16 06:11 PT 13.5 SECONDS (9.7-12.2) H 09/14/16 11:40 INR 1.2 09/14/16 11:40 APTT 37 SECONDS (21-34) H 09/14/16 11:40 Attending/Attestation - Attestation I have personally seen and examined this patient.: Yes I have fully participated in the care of the patient.: Yes I have reviewed all pertinent clinical information, including history, physical exam and plan: Yes Notes (Text): 09/16/16 16:34 Pt was seen and examined at bedside on 09/16/16 Agree with above note and assessment. .
[2016-09-16] MEDS ORDERED: Iohexol 240 (50 ml) PO ONE (08:56)
--- NOTE | 2016-09-16 09:03 | CP.PCM.PN ---
Subjective - Date & Time of Evaluation Date of Evaluation: 09/16/16 Time of Evaluation: 09:00 - Subjective Subjective: Patient awake, lethargic Objective - Vital Signs/Intake and Output Vital Signs (last 24 hours): Temp Pulse Resp BP Pulse Ox 98 F 115 H 27 H 85/56 L 86 L 09/16/16 06:30 09/16/16 08:19 09/16/16 08:19 09/16/16 08:19 09/16/16 08:19 Intake and Output: 09/16/16 09/16/16 06:59 18:59 Intake Total 2139 350 Output Total 160 0 Balance 1979 350 - Medications Medications: Current Medications Acetaminophen (Tylenol 650mg/20.3ml Solution Ud) 650 mg PO Q6H PRN PRN Reason: temp.100.4&above;mild pain 1-3 Last Admin: 08/25/16 00:45 Dose: 650 mg Albuterol/Ipratropium (Duoneb 3 Mg/0.5 Mg (3 Ml) Ud) 3 ml INH RQ6 [facility] Last Admin: 09/16/16 08:02 Dose: 3 ml Digoxin (Lanoxin) 0.25 mg PO DAILY@1800 [facility] Last Admin: 09/15/16 19:07 Dose: Not Given Famotidine (Pepcid) 20 mg PO DAILY [facility] Last Admin: 09/15/16 10:38 Dose: 20 mg Heparin Sodium (Porcine) (Heparin) 5,000 units SC Q12 [facility] Last Admin: 09/14/16 21:51 Dose: 5,000 units Sodium Chloride (Sodium Chloride 0.9%) 1,000 mls @ 100 mls/hr IV .Q10H [facility] Last Admin: 09/16/16 06:34 Dose: 100 mls/hr Cefepime HCl (Maxipime Iv 1 Gm Premix) 1 gm in 50 mls @ 100 mls/hr IVPB Q12H [facility] Last Admin: 09/15/16 23:12 Dose: 100 mls/hr Linezolid (Zyvox 600mg/300ml D5w) 600 mg in 300 mls @ 200 mls/hr IVPB Q12 [facility] Last Admin: 09/15/16 23:12 Dose: 200 mls/hr Micafungin Sodium 100 mg/ (Sodium Chloride) 100 mls @ 100 mls/hr IV Q24H [facility] Last Admin: 09/15/16 23:12 Dose: 100 mls/hr Norepinephrine Bitartrate 4 mg (/ Sodium Chloride) 254 mls @ 15.24 mls/hr IV .[id number] PRN; Protocol; 4 MCG/MIN PRN Reason: TITRATE PER MD ORDER Last Titration: 09/16/16 06:10 Dose: 20 mcg/min, 76.2 mls/hr Lisinopril (Zestril) 5 mg PO DAILY [facility] Last Admin: 09/15/16 10:38 Dose: 5 mg Lorazepam (Ativan) 1 mg IVP Q3H PRN PRN Reason: Agitation Last Admin: 09/14/16 22:10 Dose: 1 mg Metoprolol Tartrate (Lopressor) 25 mg PO BID [facility] Last Admin: 09/12/16 09:29 Dose: 25 mg Morphine Sulfate (Morphine) 1 mg IV Q4 PRN PRN Reason: Pain, moderate (4-7) Last Admin: 09/14/16 09:44 Dose: 1 mg - Labs Labs: 09/16/16 06:11 09/16/16 06:11 PT 13.5 SECONDS (9.7-12.2) H 09/14/16 11:40 INR 1.2 09/14/16 11:40 APTT 37 SECONDS (21-34) H 09/14/16 11:40 - Extremities Exam Additional comments: s/p trach/PEG RLE +DP, +venodynes, + heel boots Assessment and Plan (1) Garden grade IV closed subcapital fracture of proximal end of right femur Assessment & Plan: Events noted, s/p trach/PEG, hypotensive overnight +leukocytosis, septic workup as per Dr. Rodriguez From orthopedic perspective, awaiting medical optimization for OR if aggressive efforts including prosthesis for hip fracture, goal of pain control and ambulation/transfers are desired by patient and family. At this time, septic workup in progress, and hypotensive on pressors, not stable for orthopedic surgery. d/w Dr. Elena, agrees with above Status: Acute (2) Degenerative joint disease of right hip Status: Chronic (3) Closed fracture of greater trochanter of left femur Assessment & Plan: non operative Status: Acute
[2016-09-16] MEDS: Phenylephrine 30 MG in Dextrose 5% In Water 250 ML IV PRN ×3 (10:16→16:54)
--- NOTE | 2016-09-16 10:21 | CP.CCUPN ---
<Kiran Xavier Wai - Last Filed: 09/16/16 10:27> CCU Subjective - Physician Review Events Since Last Encounter (Free Text): 09/16/16 10:13 Pt S&E. Had Trach/PEG placed yesterday, tolerated procedure well. Pt started on levophed last night due to hypotension. On 2omcg now. Awake, but no longer responsive. CXR shows free air under the diaphragm. 50mL of omnipaque injected into G-tube and abdominal XR shows no extravasation of contrast. Remains on micafungin, linezolid, and cefepime. WBC 27K. ABG shows metabolic acidosis CCU Objective - Vital Signs / Intake & Output Vital Signs (Last 4 hours): Vital Signs Temp Pulse Resp BP Pulse Ox 09/16/16 09:04 109 H 23 102/36 L 83 L 09/16/16 09:00 109 H 24 82 L 09/16/16 08:51 110 H 27 H 102/31 L 67 L 09/16/16 08:34 115 H 25 H 82/49 L 89 L 09/16/16 08:19 115 H 27 H 85/56 L 86 L 09/16/16 08:04 119 H 27 H 95/56 L 100 09/16/16 08:00 115 H 26 H 102/36 L 90 L 09/16/16 07:49 121 H 31 H 116/69 100 09/16/16 07:34 102 H 22 125/62 100 09/16/16 07:19 111 H 29 H 82/41 L 85 L 09/16/16 07:04 112 H 29 H 78/37 L 98 09/16/16 07:00 111 H 26 H 100 09/16/16 06:49 112 H 28 H 80/50 L 99 09/16/16 06:34 113 H 26 H 83/57 L 93 L 09/16/16 06:30 98 F 09/16/16 06:19 112 H 26 H 81/49 L Intake and Output (Last 8hrs): Intake & Output 09/15/16 09/16/16 09/16/16 22:59 06:59 14:59 Intake Total 1100 1764 647 Output Total 230 150 0 Balance 870 1614 647 Intake: IV 132 122 Intake, IV Amount 1100 1632 525 Right PICC 1100 950 300 Rt PICC Y-site 682 225 Output: Gastric Amount 200 150 Stomach 200 150 Urine 30 0 0 Urethral (Martinez) 30 0 0 Other: # Bowel Movements 1 1 - Physical Exam Physical Exam Limitations: Positive for: Clinical Condition Head: Positive for: Normocephalic. Negative for: Atraumatic Pupils: Positive for: PERRL Extroacular Muscles: Positive for: EOMI Conjunctiva: Positive for: Normal. Negative for: Injected, Icteric Mouth: Positive for: Other (inc secretions) Nose (External): Positive for: Other (NGT in place- tolerating feeds) Neck: Positive for: Other (trach in place, good positioning, C/D/I). Negative for: JVD, Bruit Respiratory/Chest: Positive for: Good Air Exchange, Other (vent sounds heard throughout). Negative for: Respiratory Distress, Accessory Muscle Use, Wheezes , Retracting, Rhonchi Cardiovascular: Positive for: Normal S1, S2, Peripheal Pulses Present, Tachycardic, Other (hypotensive). Negative for: Murmurs, Irregular Rhythm Abdomen: Positive for: Feeding Tubes (G-tube site c/d/i). Negative for: Distention Upper Extremity: Positive for: Normal Inspection, NORMAL PULSES, Other (mittens in place b/l). Negative for: Edema Lower Extremity: Positive for: NORMAL PULSES. Negative for: Normal Inspection, Edema, Normal ROM Neurological: Positive for: Other (alert and responsive). Negative for: Speech Normal Skin: Positive for: Warm, Dry, Normal Color. Negative for: Rashes Psychiatric: Negative for: Alert, Oriented x 3 - Medications Active Medications: Active Medications Generic Name Dose Route Start Last Admin Trade Name Joshq PRN Reason Stop Dose Admin Acetaminophen 650 mg 08/14/16 23:50 08/25/16 00:45 Tylenol 650mg/20.3ml Solution Ud PO 650 mg Q6H PRN Administration temp.100.4&above;mild pain 1-3 Albuterol/Ipratropium 3 ml 08/16/16 14:00 09/16/16 08:02 Duoneb 3 Mg/0.5 Mg (3 Ml) Ud INH 3 ml RQ6 [place] Administration Digoxin 0.25 mg 09/16/16 18:00 Lanoxin IVP DAILY@1800 [facility] Famotidine 20 mg 09/17/16 10:00 Pepcid IVP DAILY [place] Heparin Sodium (Porcine) 5,000 units 09/03/16 10:00 09/14/16 21:51 Heparin SC 5,000 units Q12 [place] Administration Sodium Chloride 1,000 mls @ 100 mls/hr 09/15/16 20:00 09/16/16 06:34 Sodium Chloride 0.9% IV 100 mls/hr .Q10H [place] Administration Cefepime HCl 1 gm in 50 mls @ 100 mls/hr 09/15/16 22:30 09/15/16 23:12 Maxipime Iv 1 Gm Premix IVPB 100 mls/hr Q12H [place] Administration Linezolid 600 mg in 300 mls @ 200 mls/hr 09/15/16 22:30 09/15/16 23:12 Zyvox 600mg/300ml D5w IVPB 200 mls/hr Q12 [place] Administration Micafungin Sodium 100 mg/ 100 mls @ 100 mls/hr 09/15/16 23:30 09/15/16 23:12 Sodium Chloride IV 100 mls/hr Q24H [place] Administration Norepinephrine Bitartrate 4 mg 254 mls @ 15.24 mls/hr 09/16/16 00:58 08:00 / Sodium Chloride IV 20 mcg/min .[id number] PRN 76.2 mls/hr TITRATE PER MD ORDER Administration Protocol 4 MCG/MIN Phenylephrine HCl 30 mg/ 253 mls @ 10.12 mls/hr 09/16/16 09:47 Dextrose IV .Q24H PRN TITRATE PER MD ORDER Protocol 20 MCG/MIN Lisinopril 5 mg 08/17/16 10:00 09/15/16 10:38 Zestril PO 5 mg DAILY [place] Administration Lorazepam 1 mg 09/14/16 10:31 09/14/16 22:10 Ativan IVP 1 mg Q3H PRN Administration Agitation Metoprolol Tartrate 25 mg 08/12/16 18:00 09/12/16 09:29 Lopressor PO 25 mg BID [place] Administration Morphine Sulfate 1 mg 09/13/16 16:22 09/14/16 09:44 Morphine IV 1 mg Q4 PRN Administration Pain, moderate (4-7) - Patient Studies Lab Studies: Lab Studies 09/16/16 09/16/16 09/16/16 Range/Units 08:37 08:06 06:11 WBC (4.8-10.8) K/uL RBC (3.80-5.20) Mil/uL Hgb (11.0-16.0) g/dL Hct (34.0-47.0) % MCV (81.0-99.0) fL MCH (27.0-31.0) pg MCHC (33.0-37.0) g/dL RDW (11.5-14.5) % Plt Count (130-400) K/uL MPV (7.2-11.7) fL Neut % (Auto) (50.0-75.0) % Lymph % (Auto) (20.0-40.0) % [place] % (Auto) (0.0-10.0) % Eos % (Auto) (0.0-4.0) % Baso % (Auto) (0.0-2.0) % Neut # (1.8-7.0) K/uL Lymph # (1.0-4.3) K/uL [place] # (0.0-0.8) K/uL Eos # (0.0-0.7) K/uL Baso # (0.0-0.2) K/uL Neutrophils % (Manual) (50-75) % Band Neutrophils % (0-2) % Lymphocytes % (Manual) (20-40) % Monocytes % (Manual) (0-10) % Platelet Estimate (NORMAL) Large Platelets Hypochromasia (manual) Poikilocytosis (manual Anisocytosis (manual) Macrocytosis (manual) Target Cells Tear Drop Cells Heri Cells Puncture Site Rf pCO2 32 L (35-45) mm/Hg pO2 132 H (80-100) mm/Hg HCO3 14.8 L (21-28) mmol/L ABG pH 7.23 L (7.35-7.45) ABG Total CO2 14.4 L (22-28) mmol/L ABG O2 Saturation 100.2 H (95-98) % ABG Base Excess -13.0 L (-2.0-3.0) mmol/L Seng Test Na ABG Potassium 6.1 H (3.6-5.2) mmol/L A-a O2 Difference 541.0 mm/Hg Respiratory Index 4.1 Glucose 104 (65-105) mg/dl Lactate 8.1 H* (0.7-2.1) mmol/L Mechanical Rate 20 FiO2 100.0 % Tidal Volume 400 PEEP 5 Crit Value Called To Dr efe brush Crit Value Called By Jessy lanza director funds development Crit Value Read Back Y Blood Gas Notified Time 845 Sodium 136.0 135 (132-148) mmol/L Potassium 6.0 H (3.6-5.2) mmol/L Chloride 108.0 H 103 (98-107) mmol/L Carbon Dioxide 17 L (22-30) mmol/L Anion Gap 21 H (10-20) BUN 68 H (7-17) mg/dL Creatinine 1.6 H (0.7-1.2) MG/DL Est GFR ( Amer) 38 Est GFR (Non-Af Amer) 31 POC Glucose (mg/dL) 147 H (65-110) mg/dL Random Glucose 56 L (65-105) mg/dL Calcium 7.1 L (8.6-10.4) mg/dl Phosphorus 7.1 H (2.5-4.5) mg/dL Magnesium 2.5 H (1.6-2.3) mg/dL Total Bilirubin 1.0 (0.2-1.3) mg/dL AST 343 H D (14-36) U/L ALT 253 H D (9-52) U/L Alkaline Phosphatase 235 H (38-126) U/L Total Protein 5.4 L (6.3-8.3) g/dL Albumin 2.0 L (3.5-5.0) g/dL Globulin 3.4 (2.2-3.9) gm/dL Albumin/Globulin Ratio 0.6 L (1.0-2.1) Arterial Blood Potassium 6.1 H (3.6-5.2) mmol/L Blood Type Antibody Screen 09/16/16 09/15/16 09/15/16 Range/Units 06:11 20:11 20:11 WBC 27.7 H 28.5 H (4.8-10.8) K/uL RBC 3.27 L 3.20 L (3.80-5.20) Mil/uL Hgb 11.0 11.0 (11.0-16.0) g/dL Hct 35.0 33.7 L (34.0-47.0) % MCV 106.9 H 105.3 H (81.0-99.0) fL MCH 33.6 H 34.4 H (27.0-31.0) pg MCHC 31.5 L 32.7 L (33.0-37.0) g/dL RDW 16.7 H 16.3 H (11.5-14.5) % Plt Count 117 L 135 (130-400) K/uL MPV 12.8 H 12.3 H (7.2-11.7) fL Neut % (Auto) 93.2 H 92.0 H (50.0-75.0) % Lymph % (Auto) 2.2 L 2.0 L (20.0-40.0) % [place] % (Auto) 4.0 6.0 (0.0-10.0) % Eos % (Auto) 0.0 0.0 (0.0-4.0) % Baso % (Auto) 0.6 0.0 (0.0-2.0) % Neut # 25.8 H 26.0 H (1.8-7.0) K/uL Lymph # 0.6 L 0.6 L (1.0-4.3) K/uL [place] # 1.1 H 1.7 H (0.0-0.8) K/uL Eos # 0.0 0.0 (0.0-0.7) K/uL Baso # 0.2 0.0 (0.0-0.2) K/uL Neutrophils % (Manual) 69 74 (50-75) % Band Neutrophils % 28 H* 22 H* (0-2) % Lymphocytes % (Manual) 1 L 1 L (20-40) % Monocytes % (Manual) 2 3 (0-10) % Platelet Estimate Slightly decreased L Normal (NORMAL) Large Platelets Present Hypochromasia (manual) Slight Slight Poikilocytosis (manual Slight Slight Anisocytosis (manual) Slight Slight Macrocytosis (manual) Target Cells Tear Drop Cells Slight Soper Cells Puncture Site pCO2 (35-45) mm/Hg pO2 (80-100) mm/Hg HCO3 (21-28) mmol/L ABG pH (7.35-7.45) ABG Total CO2 (22-28) mmol/L ABG O2 Saturation (95-98) % ABG Base Excess (-2.0-3.0) mmol/L Seng Test ABG Potassium (3.6-5.2) mmol/L A-a O2 Difference mm/Hg Respiratory Index Glucose (65-105) mg/dl Lactate (0.7-2.1) mmol/L Mechanical Rate FiO2 % Tidal Volume PEEP Crit Value Called To Crit Value Called By Crit Value Read Back Blood Gas Notified Time Sodium 137 (132-148) mmol/L Potassium 5.2 (3.6-5.2) mmol/L Chloride 106 (98-107) mmol/L Carbon Dioxide 23 (22-30) mmol/L Anion Gap 13 (10-20) BUN 71 H (7-17) mg/dL Creatinine 1.3 H (0.7-1.2) MG/DL Est GFR ( Amer) 48 Est GFR (Non-Af Amer) 40 POC Glucose (mg/dL) (65-110) mg/dL Random Glucose 81 (65-105) mg/dL Calcium 7.4 L (8.6-10.4) mg/dl Phosphorus 5.8 H (2.5-4.5) mg/dL Magnesium 2.5 H (1.6-2.3) mg/dL Total Bilirubin 0.8 (0.2-1.3) mg/dL AST 50 H D (14-36) U/L ALT 49 (9-52) U/L Alkaline Phosphatase 205 H (38-126) U/L Total Protein 5.3 L (6.3-8.3) g/dL Albumin 2.0 L (3.5-5.0) g/dL Globulin 3.3 (2.2-3.9) gm/dL Albumin/Globulin Ratio 0.6 L (1.0-2.1) Arterial Blood Potassium (3.6-5.2) mmol/L Blood Type Antibody Screen 09/15/16 09/15/16 09/15/16 Range/Units 10:42 10:29 10:29 WBC 30.5 H (4.8-10.8) K/uL RBC 3.53 L (3.80-5.20) Mil/uL Hgb 11.7 (11.0-16.0) g/dL Hct 37.2 (34.0-47.0) % MCV 105.5 H (81.0-99.0) fL MCH 33.1 H (27.0-31.0) pg MCHC 31.4 L (33.0-37.0) g/dL RDW 16.5 H (11.5-14.5) % Plt Count 179 (130-400) K/uL MPV 12.5 H (7.2-11.7) fL Neut % (Auto) 93.4 H (50.0-75.0) % Lymph % (Auto) 2.8 L (20.0-40.0) % [place] % (Auto) 3.4 (0.0-10.0) % Eos % (Auto) 0.0 (0.0-4.0) % Baso % (Auto) 0.4 (0.0-2.0) % Neut # 28.5 H (1.8-7.0) K/uL Lymph # 0.8 L (1.0-4.3) K/uL [place] # 1.0 H (0.0-0.8) K/uL Eos # 0.0 (0.0-0.7) K/uL Baso # 0.1 (0.0-0.2) K/uL Neutrophils % (Manual) 95 H (50-75) % Band Neutrophils % (0-2) % Lymphocytes % (Manual) 1 L (20-40) % Monocytes % (Manual) 4 (0-10) % Platelet Estimate Normal (NORMAL) Large Platelets Hypochromasia (manual) Slight Poikilocytosis (manual Anisocytosis (manual) Slight Macrocytosis (manual) Slight Target Cells Slight Tear Drop Cells Slight Soper Cells Slight Puncture Site pCO2 (35-45) mm/Hg pO2 (80-100) mm/Hg HCO3 (21-28) mmol/L ABG pH (7.35-7.45) ABG Total CO2 (22-28) mmol/L ABG O2 Saturation (95-98) % ABG Base Excess (-2.0-3.0) mmol/L Seng Test ABG Potassium (3.6-5.2) mmol/L A-a O2 Difference mm/Hg Respiratory Index Glucose (65-105) mg/dl Lactate (0.7-2.1) mmol/L Mechanical Rate FiO2 % Tidal Volume PEEP Crit Value Called To Crit Value Called By Crit Value Read Back Blood Gas Notified Time Sodium 137 (132-148) mmol/L Potassium 5.1 (3.6-5.2) mmol/L Chloride 102 (98-107) mmol/L Carbon Dioxide 28 (22-30) mmol/L Anion Gap 12 (10-20) BUN 69 H (7-17) mg/dL Creatinine 1.1 (0.7-1.2) MG/DL Est GFR ( Amer) 58 Est GFR (Non-Af Amer) 48 POC Glucose (mg/dL) (65-110) mg/dL Random Glucose 116 H (65-105) mg/dL Calcium 8.2 L (8.6-10.4) mg/dl Phosphorus (2.5-4.5) mg/dL Magnesium (1.6-2.3) mg/dL Total Bilirubin 0.7 (0.2-1.3) mg/dL AST 29 (14-36) U/L ALT 45 (9-52) U/L Alkaline Phosphatase 231 H (38-126) U/L Total Protein 6.3 (6.3-8.3) g/dL Albumin 2.4 L (3.5-5.0) g/dL Globulin 3.9 (2.2-3.9) gm/dL Albumin/Globulin Ratio 0.6 L (1.0-2.1) Arterial Blood Potassium (3.6-5.2) mmol/L Blood Type B POSITIVE Antibody Screen Negative Laboratory Results - last 24 hr 09/15/16 09/15/16 09/15/16 10:29 10:29 10:42 WBC 30.5 H RBC 3.53 L Hgb 11.7 Hct 37.2 MCV 105.5 H MCH 33.1 H MCHC 31.4 L RDW 16.5 H Plt Count 179 MPV 12.5 H Neut % (Auto) 93.4 H Lymph % (Auto) 2.8 L [place] % (Auto) 3.4 Eos % (Auto) 0.0 Baso % (Auto) 0.4 Neut # 28.5 H Lymph # 0.8 L [place] # 1.0 H Eos # 0.0 Baso # 0.1 Neutrophils % (Manual) 95 H Band Neutrophils % Lymphocytes % (Manual) 1 L Monocytes % (Manual) 4 Platelet Estimate Normal Large Platelets Hypochromasia (manual) Slight Poikilocytosis (manual Anisocytosis (manual) Slight Macrocytosis (manual) Slight Target Cells Slight Tear Drop Cells Slight Heri Cells Slight Puncture Site pCO2 pO2 HCO3 ABG pH ABG Total CO2 ABG O2 Saturation ABG Base Excess Seng Test ABG Potassium A-a O2 Difference Respiratory Index Glucose Lactate Mechanical Rate FiO2 Tidal Volume PEEP Crit Value Called To Crit Value Called By Crit Value Read Back Blood Gas Notified Time Sodium 137 Potassium 5.1 Chloride 102 Carbon Dioxide 28 Anion Gap 12 BUN 69 H Creatinine 1.1 Est GFR ( Amer) 58 Est GFR (Non-Af Amer) 48 POC Glucose (mg/dL) Random Glucose 116 H Calcium 8.2 L Phosphorus Magnesium Total Bilirubin 0.7 AST 29 ALT 45 Alkaline Phosphatase 231 H Total Protein 6.3 Albumin 2.4 L Globulin 3.9 Albumin/Globulin Ratio 0.6 L Arterial Blood Potassium Blood Type B POSITIVE Antibody Screen Negative 09/15/16 09/15/16 09/16/16 20:11 20:11 06:11 WBC 28.5 H 27.7 H RBC 3.20 L 3.27 L Hgb 11.0 11.0 Hct 33.7 L 35.0 MCV 105.3 H 106.9 H MCH 34.4 H 33.6 H MCHC 32.7 L 31.5 L RDW 16.3 H 16.7 H Plt Count 135 117 L MPV 12.3 H 12.8 H Neut % (Auto) 92.0 H 93.2 H Lymph % (Auto) 2.0 L 2.2 L [place] % (Auto) 6.0 4.0 Eos % (Auto) 0.0 0.0 Baso % (Auto) 0.0 0.6 Neut # 26.0 H 25.8 H Lymph # 0.6 L 0.6 L [place] # 1.7 H 1.1 H Eos # 0.0 0.0 Baso # 0.0 0.2 Neutrophils % (Manual) 74 69 Band Neutrophils % 22 H* 28 H* Lymphocytes % (Manual) 1 L 1 L Monocytes % (Manual) 3 2 Platelet Estimate Normal Slightly decreased L Large Platelets Present Hypochromasia (manual) Slight Slight Poikilocytosis (manual Slight Slight Anisocytosis (manual) Slight Slight Macrocytosis (manual) Target Cells Tear Drop Cells Slight Heri Cells Puncture Site pCO2 pO2 HCO3 ABG pH ABG Total CO2 ABG O2 Saturation ABG Base Excess Seng Test ABG Potassium A-a O2 Difference Respiratory Index Glucose Lactate Mechanical Rate FiO2 Tidal Volume PEEP Crit Value Called To Crit Value Called By Crit Value Read Back Blood Gas Notified Time Sodium 137 Potassium 5.2 Chloride 106 Carbon Dioxide 23 Anion Gap 13 BUN 71 H Creatinine 1.3 H Est GFR ( Amer) 48 Est GFR (Non-Af Amer) 40 POC Glucose (mg/dL) Random Glucose 81 Calcium 7.4 L Phosphorus 5.8 H Magnesium 2.5 H Total Bilirubin 0.8 AST 50 H D ALT 49 Alkaline Phosphatase 205 H Total Protein 5.3 L Albumin 2.0 L Globulin 3.3 Albumin/Globulin Ratio 0.6 L Arterial Blood Potassium Blood Type Antibody Screen 09/16/16 09/16/16 09/16/16 06:11 08:06 08:37 WBC RBC Hgb Hct MCV MCH MCHC RDW Plt Count MPV Neut % (Auto) Lymph % (Auto) [place] % (Auto) Eos % (Auto) Baso % (Auto) Neut # Lymph # [place] # Eos # Baso # Neutrophils % (Manual) Band Neutrophils % Lymphocytes % (Manual) Monocytes % (Manual) Platelet Estimate Large Platelets Hypochromasia (manual) Poikilocytosis (manual Anisocytosis (manual) Macrocytosis (manual) Target Cells Tear Drop Cells Soper Cells Puncture Site Rf pCO2 32 L pO2 132 H HCO3 14.8 L ABG pH 7.23 L ABG Total CO2 14.4 L ABG O2 Saturation 100.2 H ABG Base Excess -13.0 L Seng Test Na ABG Potassium 6.1 H A-a O2 Difference 541.0 Respiratory Index 4.1 Glucose 104 Lactate 8.1 H* Mechanical Rate 20 FiO2 100.0 Tidal Volume 400 PEEP 5 Crit Value Called To Dr efe brush Crit Value Called By Jessy lanza director funds development Crit Value Read Back Y Blood Gas Notified Time 845 Sodium 135 136.0 Potassium 6.0 H Chloride 103 108.0 H Carbon Dioxide 17 L Anion Gap 21 H BUN 68 H Creatinine 1.6 H Est GFR ( Amer) 38 Est GFR (Non-Af Amer) 31 POC Glucose (mg/dL) 147 H Random Glucose 56 L Calcium 7.1 L Phosphorus 7.1 H Magnesium 2.5 H Total Bilirubin 1.0 AST 343 H D ALT 253 H D Alkaline Phosphatase 235 H Total Protein 5.4 L Albumin 2.0 L Globulin 3.4 Albumin/Globulin Ratio 0.6 L Arterial Blood Potassium 6.1 H Blood Type Antibody Screen Review of Systems - Review of Systems Systems not reviewed;Unavailable: Intubated Critical Care Progress Note - Nutrition Nutrition: Nutrition Category Date Time Status NPO Diet [DIET] Diets 09/15/16 Breakfast Active Assessment/Plan - Assessment and Plan (Free Text) Assessment: 76F with bilateral femur fractures, respiratory failure; POD#1 s/p trach/PEG Plan: Plan: Neuro: - Awake, no longer oriented -GCS 8T - Trach on vent - 100% FiO2 Pulm: - Albuterol/Ipratropium 3ml INH RQ6 - Trach placement 09/15 - in good position, c/d/i, 100% FiO2 will titrate down when possible CV: - Lopressor being held due to bradycardia -On levophed 20mcg for hypotension - 100/30s now Heme: - H/H (09/16): 11./35 Renal: - BUN/Cr (09/16): 68/1.6 GI: - PEG placement 09/15 - Surgery Consult: Dr. Gale --> help appreciated - Free air under diaphragm - will hold tube feeds for now, transition PO meds to IVP ID: - ID Consult: Dr. Stanley --> help appreciated - Micafungin, Linezolid, Cefeprime - WBC down to 27 from 28.5 -new cultures ordered yesterday DVT proph - SCDs, Heparin 5000 units SC Q12 GI proph - Pepcid 2 IVP daily Overall prognosis very poor - pt poor candidate for orthopaedic repair Code status -DNR/DNI Case discussed with Dr. Zak Xavier, PGY3 - Date & Time Date: 09/16/16 Time: 10:32 <Maurizio Brush - Last Filed: 09/16/16 16:36> CCU Objective - Vital Signs / Intake & Output Vital Signs (Last 4 hours): Vital Signs Pulse Resp BP Pulse Ox 09/16/16 16:05 113 H 24 91/75 L 100 09/16/16 16:00 107 H 24 09/16/16 15:47 115 H 24 108/91 H 09/16/16 15:23 116 H 23 76/49 L 09/16/16 15:21 116 H 25 H 09/16/16 15:04 114 H 23 85/40 L 09/16/16 15:02 116 H 24 93 L 09/16/16 15:00 107 H 24 97 09/16/16 14:34 118 H 24 133/34 L 88 L 09/16/16 14:00 113 H 27 H 96 09/16/16 13:48 123 H 27 H 105/81 09/16/16 13:44 122 H 27 H 169/143 H 88 L 09/16/16 13:32 110 H 27 H 67/43 L 95 09/16/16 13:29 108 H 29 H 47/30 L 99 09/16/16 13:23 108 H 26 H 47/30 L 100 09/16/16 13:21 109 H 21 51/34 L 100 09/16/16 13:05 110 H 22 106/59 L 09/16/16 13:00 110 H 25 H 09/16/16 12:49 110 H 27 H 83/60 L 09/16/16 12:42 110 H 21 105/54 L 89 L Intake and Output (Last 8hrs): Intake & Output 09/16/16 09/16/16 09/16/16 06:59 14:59 22:59 Intake Total 1764 2163.4 358.9 Output Total 150 0 0 Balance 1614 2163.4 358.9 Intake: IV 132 634 145 Intake, IV Amount 1632 1529.4 213.9 Right Distal Port PICC 330 90 Right Medial Port PICC 9.4 18.9 Right PICC 950 590 30 Rt PICC Y-site 682 600 75 Output: Gastric Amount 150 Stomach 150 Urine 0 0 0 Urethral (Martinez) 0 0 0 Other: # Bowel Movements 1 - Medications Active Medications: Active Medications Generic Name Dose Route Start Last Admin Trade Name Freq PRN Reason Stop Dose Admin Acetaminophen 650 mg 08/14/16 23:50 08/25/16 00:45 Tylenol 650mg/20.3ml Solution Ud PO 650 mg Q6H PRN Administration temp.100.4&above;mild pain 1-3 Albuterol/Ipratropium 3 ml 08/16/16 14:00 09/16/16 13:07 Duoneb 3 Mg/0.5 Mg (3 Ml) Ud INH 3 ml RQ6 [place] Administration Digoxin 0.25 mg 09/16/16 18:00 Lanoxin IVP DAILY@1800 [place] Famotidine 20 mg 09/16/16 10:26 09/16/16 10:32 Pepcid IVP 20 mg DAILY [place] Administration Heparin Sodium (Porcine) 5,000 units 09/03/16 10:00 09/14/16 21:51 Heparin SC 5,000 units Q12 [place] Administration Cefepime HCl 1 gm in 50 mls @ 100 mls/hr 09/15/16 22:30 09/16/16 10:32 Maxipime Iv 1 Gm Premix IVPB 100 mls/hr Q12H [place] Administration Linezolid 600 mg in 300 mls @ 200 mls/hr 09/15/16 22:30 09/16/16 14:24 Zyvox 600mg/300ml D5w IVPB 200 mls/hr Q12 [place] Administration Micafungin Sodium 100 mg/ 100 mls @ 100 mls/hr 09/15/16 23:30 09/15/16 23:12 Sodium Chloride IV 100 mls/hr Q24H [place] Administration Norepinephrine Bitartrate 4 mg 254 mls @ 15.24 mls/hr 09/16/16 00:58 12:09 / Sodium Chloride IV 20 mcg/min .[id number] PRN 76.2 mls/hr TITRATE PER MD ORDER Administration Protocol 4 MCG/MIN Phenylephrine HCl 30 mg/ 253 mls @ 10.12 mls/hr 09/16/16 09:47 09/16/16 13:32 Dextrose IV 180 mcg/min .Q24H PRN 91.08 mls/hr TITRATE PER MD ORDER Administration Protocol 20 MCG/MIN Dopamine HCl/Dextrose 400 mg in 250 mls @ 3.75 mls/hr 09/16/16 11:22 15:00 Dopamine 400mg/250ml D5w IV 10 mcg/kg/min .Q24H PRN 18.75 mls/hr TITRATE PER MD ORDER Titration Protocol 2 MCG/KG/MIN Dextrose 1,000 mls @ 30 mls/hr 09/16/16 11:37 09/16/16 11:40 Dextrose 10% In Water IV 30 mls/hr .Q24H [place] Administration Lisinopril 5 mg 08/17/16 10:00 09/16/16 10:22 Zestril PO Not Given DAILY [place] Lorazepam 1 mg 09/14/16 10:31 09/14/16 22:10 Ativan IVP 1 mg Q3H PRN Administration Agitation Metoprolol Tartrate 25 mg 08/12/16 18:00 09/12/16 09:29 Lopressor PO 25 mg BID [place] Administration Morphine Sulfate 1 mg 09/13/16 16:22 09/14/16 09:44 Morphine IV 1 mg Q4 PRN Administration Pain, moderate (4-7) - Patient Studies Lab Studies: Lab Studies 09/16/16 09/16/16 09/16/16 Range/Units 15:23 13:24 12:08 WBC (4.8-10.8) K/uL RBC (3.80-5.20) Mil/uL Hgb (11.0-16.0) g/dL Hct (34.0-47.0) % MCV (81.0-99.0) fL MCH (27.0-31.0) pg MCHC (33.0-37.0) g/dL RDW (11.5-14.5) % Plt Count (130-400) K/uL MPV (7.2-11.7) fL Neut % (Auto) (50.0-75.0) % Lymph % (Auto) (20.0-40.0) % [place] % (Auto) (0.0-10.0) % Eos % (Auto) (0.0-4.0) % Baso % (Auto) (0.0-2.0) % Neut # (1.8-7.0) K/uL Lymph # (1.0-4.3) K/uL [place] # (0.0-0.8) K/uL Eos # (0.0-0.7) K/uL Baso # (0.0-0.2) K/uL Neutrophils % (Manual) (50-75) % Band Neutrophils % (0-2) % Lymphocytes % (Manual) (20-40) % Monocytes % (Manual) (0-10) % Platelet Estimate (NORMAL) Large Platelets Hypochromasia (manual) Poikilocytosis (manual Anisocytosis (manual) Tear Drop Cells Puncture Site pCO2 (35-45) mm/Hg pO2 (80-100) mm/Hg HCO3 (21-28) mmol/L ABG pH (7.35-7.45) ABG Total CO2 (22-28) mmol/L ABG O2 Saturation (95-98) % ABG Base Excess (-2.0-3.0) mmol/L Seng Test ABG Potassium (3.6-5.2) mmol/L A-a O2 Difference mm/Hg Respiratory Index Glucose (65-105) mg/dl Lactate (0.7-2.1) mmol/L Mechanical Rate FiO2 % Tidal Volume PEEP Crit Value Called To Crit Value Called By Crit Value Read Back Blood Gas Notified Time Sodium (132-148) mmol/L Potassium (3.6-5.2) mmol/L Chloride (98-107) mmol/L Carbon Dioxide (22-30) mmol/L Anion Gap (10-20) BUN (7-17) mg/dL Creatinine (0.7-1.2) MG/DL Est GFR ( Amer) Est GFR (Non-Af Amer) POC Glucose (mg/dL) 144 H 130 H 192 H (65-110) mg/dL Random Glucose (65-105) mg/dL Calcium (8.6-10.4) mg/dl Phosphorus (2.5-4.5) mg/dL Magnesium (1.6-2.3) mg/dL Total Bilirubin (0.2-1.3) mg/dL AST (14-36) U/L ALT (9-52) U/L Alkaline Phosphatase (38-126) U/L Total Protein (6.3-8.3) g/dL Albumin (3.5-5.0) g/dL Globulin (2.2-3.9) gm/dL Albumin/Globulin Ratio (1.0-2.1) Arterial Blood Potassium (3.6-5.2) mmol/L 07/11/17 07/11/17 07/11/17 Range/Units 11:25 08:37 08:06 WBC (4.8-10.8) K/uL RBC (3.80-5.20) Mil/uL Hgb (11.0-16.0) g/dL Hct (34.0-47.0) % MCV (81.0-99.0) fL MCH (27.0-31.0) pg MCHC (33.0-37.0) g/dL RDW (11.5-14.5) % Plt Count (130-400) K/uL MPV (7.2-11.7) fL Neut % (Auto) (50.0-75.0) % Lymph % (Auto) (20.0-40.0) % [place] % (Auto) (0.0-10.0) % Eos % (Auto) (0.0-4.0) % Baso % (Auto) (0.0-2.0) % Neut # (1.8-7.0) K/uL Lymph # (1.0-4.3) K/uL [place] # (0.0-0.8) K/uL Eos # (0.0-0.7) K/uL Baso # (0.0-0.2) K/uL Neutrophils % (Manual) (50-75) % Band Neutrophils % (0-2) % Lymphocytes % (Manual) (20-40) % Monocytes % (Manual) (0-10) % Platelet Estimate (NORMAL) Large Platelets Hypochromasia (manual) Poikilocytosis (manual Anisocytosis (manual) Tear Drop Cells Puncture Site Rf pCO2 32 L (35-45) mm/Hg pO2 132 H (80-100) mm/Hg HCO3 14.8 L (21-28) mmol/L ABG pH 7.23 L (7.35-7.45) ABG Total CO2 14.4 L (22-28) mmol/L ABG O2 Saturation 100.2 H (95-98) % ABG Base Excess -13.0 L (-2.0-3.0) mmol/L Seng Test Na ABG Potassium 6.1 H (3.6-5.2) mmol/L A-a O2 Difference 541.0 mm/Hg Respiratory Index 4.1 Glucose 104 (65-105) mg/dl Lactate 8.1 H* (0.7-2.1) mmol/L Mechanical Rate 20 FiO2 100.0 % Tidal Volume 400 PEEP 5 Crit Value Called To Dr efe brush Crit Value Called By Jessy lanza director funds development Crit Value Read Back Y Blood Gas Notified Time 845 Sodium 136.0 (132-148) mmol/L Potassium (3.6-5.2) mmol/L Chloride 108.0 H (98-107) mmol/L Carbon Dioxide (22-30) mmol/L Anion Gap (10-20) BUN (7-17) mg/dL Creatinine (0.7-1.2) MG/DL Est GFR ( Amer) Est GFR (Non-Af Amer) POC Glucose (mg/dL) 59 L 147 H (65-110) mg/dL Random Glucose (65-105) mg/dL Calcium (8.6-10.4) mg/dl Phosphorus (2.5-4.5) mg/dL Magnesium (1.6-2.3) mg/dL Total Bilirubin (0.2-1.3) mg/dL AST (14-36) U/L ALT (9-52) U/L Alkaline Phosphatase (38-126) U/L Total Protein (6.3-8.3) g/dL Albumin (3.5-5.0) g/dL Globulin (2.2-3.9) gm/dL Albumin/Globulin Ratio (1.0-2.1) Arterial Blood Potassium 6.1 H (3.6-5.2) mmol/L 09/16/16 09/16/16 09/15/16 Range/Units 06:11 06:11 20:11 WBC 27.7 H (4.8-10.8) K/uL RBC 3.27 L (3.80-5.20) Mil/uL Hgb 11.0 (11.0-16.0) g/dL Hct 35.0 (34.0-47.0) % MCV 106.9 H (81.0-99.0) fL MCH 33.6 H (27.0-31.0) pg MCHC 31.5 L (33.0-37.0) g/dL RDW 16.7 H (11.5-14.5) % Plt Count 117 L (130-400) K/uL MPV 12.8 H (7.2-11.7) fL Neut % (Auto) 93.2 H (50.0-75.0) % Lymph % (Auto) 2.2 L (20.0-40.0) % [place] % (Auto) 4.0 (0.0-10.0) % Eos % (Auto) 0.0 (0.0-4.0) % Baso % (Auto) 0.6 (0.0-2.0) % Neut # 25.8 H (1.8-7.0) K/uL Lymph # 0.6 L (1.0-4.3) K/uL [place] # 1.1 H (0.0-0.8) K/uL Eos # 0.0 (0.0-0.7) K/uL Baso # 0.2 (0.0-0.2) K/uL Neutrophils % (Manual) 69 (50-75) % Band Neutrophils % 28 H* (0-2) % Lymphocytes % (Manual) 1 L (20-40) % Monocytes % (Manual) 2 (0-10) % Platelet Estimate Slightly decreased L (NORMAL) Large Platelets Present Hypochromasia (manual) Slight Poikilocytosis (manual Slight Anisocytosis (manual) Slight Tear Drop Cells Slight Puncture Site pCO2 (35-45) mm/Hg pO2 (80-100) mm/Hg HCO3 (21-28) mmol/L ABG pH (7.35-7.45) ABG Total CO2 (22-28) mmol/L ABG O2 Saturation (95-98) % ABG Base Excess (-2.0-3.0) mmol/L Seng Test ABG Potassium (3.6-5.2) mmol/L A-a O2 Difference mm/Hg Respiratory Index Glucose (65-105) mg/dl Lactate (0.7-2.1) mmol/L Mechanical Rate FiO2 % Tidal Volume PEEP Crit Value Called To Crit Value Called By Crit Value Read Back Blood Gas Notified Time Sodium 135 137 (132-148) mmol/L Potassium 6.0 H 5.2 (3.6-5.2) mmol/L Chloride 103 106 (98-107) mmol/L Carbon Dioxide 17 L 23 (22-30) mmol/L Anion Gap 21 H 13 (10-20) BUN 68 H 71 H (7-17) mg/dL Creatinine 1.6 H 1.3 H (0.7-1.2) MG/DL Est GFR ( Amer) 38 48 Est GFR (Non-Af Amer) 31 40 POC Glucose (mg/dL) (65-110) mg/dL Random Glucose 56 L 81 (65-105) mg/dL Calcium 7.1 L 7.4 L (8.6-10.4) mg/dl Phosphorus 7.1 H 5.8 H (2.5-4.5) mg/dL Magnesium 2.5 H 2.5 H (1.6-2.3) mg/dL Total Bilirubin 1.0 0.8 (0.2-1.3) mg/dL AST 343 H D 50 H D (14-36) U/L ALT 253 H D 49 (9-52) U/L Alkaline Phosphatase 235 H 205 H (38-126) U/L Total Protein 5.4 L 5.3 L (6.3-8.3) g/dL Albumin 2.0 L 2.0 L (3.5-5.0) g/dL Globulin 3.4 3.3 (2.2-3.9) gm/dL Albumin/Globulin Ratio 0.6 L 0.6 L (1.0-2.1) Arterial Blood Potassium (3.6-5.2) mmol/L 09/15/16 Range/Units 20:11 WBC 28.5 H (4.8-10.8) K/uL RBC 3.20 L (3.80-5.20) Mil/uL Hgb 11.0 (11.0-16.0) g/dL Hct 33.7 L (34.0-47.0) % MCV 105.3 H (81.0-99.0) fL MCH 34.4 H (27.0-31.0) pg MCHC 32.7 L (33.0-37.0) g/dL RDW 16.3 H (11.5-14.5) % Plt Count 135 (130-400) K/uL MPV 12.3 H (7.2-11.7) fL Neut % (Auto) 92.0 H (50.0-75.0) % Lymph % (Auto) 2.0 L (20.0-40.0) % [place] % (Auto) 6.0 (0.0-10.0) % Eos % (Auto) 0.0 (0.0-4.0) % Baso % (Auto) 0.0 (0.0-2.0) % Neut # 26.0 H (1.8-7.0) K/uL Lymph # 0.6 L (1.0-4.3) K/uL [place] # 1.7 H (0.0-0.8) K/uL Eos # 0.0 (0.0-0.7) K/uL Baso # 0.0 (0.0-0.2) K/uL Neutrophils % (Manual) 74 (50-75) % Band Neutrophils % 22 H* (0-2) % Lymphocytes % (Manual) 1 L (20-40) % Monocytes % (Manual) 3 (0-10) % Platelet Estimate Normal (NORMAL) Large Platelets Hypochromasia (manual) Slight Poikilocytosis (manual Slight Anisocytosis (manual) Slight Tear Drop Cells Puncture Site pCO2 (35-45) mm/Hg pO2 (80-100) mm/Hg HCO3 (21-28) mmol/L ABG pH (7.35-7.45) ABG Total CO2 (22-28) mmol/L ABG O2 Saturation (95-98) % ABG Base Excess (-2.0-3.0) mmol/L Seng Test ABG Potassium (3.6-5.2) mmol/L A-a O2 Difference mm/Hg Respiratory Index Glucose (65-105) mg/dl Lactate (0.7-2.1) mmol/L Mechanical Rate FiO2 % Tidal Volume PEEP Crit Value Called To Crit Value Called By Crit Value Read Back Blood Gas Notified Time Sodium (132-148) mmol/L Potassium (3.6-5.2) mmol/L Chloride (98-107) mmol/L Carbon Dioxide (22-30) mmol/L Anion Gap (10-20) BUN (7-17) mg/dL Creatinine (0.7-1.2) MG/DL Est GFR ( Amer) Est GFR (Non-Af Amer) POC Glucose (mg/dL) (65-110) mg/dL Random Glucose (65-105) mg/dL Calcium (8.6-10.4) mg/dl Phosphorus (2.5-4.5) mg/dL Magnesium (1.6-2.3) mg/dL Total Bilirubin (0.2-1.3) mg/dL AST (14-36) U/L ALT (9-52) U/L Alkaline Phosphatase (38-126) U/L Total Protein (6.3-8.3) g/dL Albumin (3.5-5.0) g/dL Globulin (2.2-3.9) gm/dL Albumin/Globulin Ratio (1.0-2.1) Arterial Blood Potassium (3.6-5.2) mmol/L Laboratory Results - last 24 hr 09/15/16 09/15/16 09/16/16 20:11 20:11 06:11 WBC 28.5 H 27.7 H RBC 3.20 L 3.27 L Hgb 11.0 11.0 Hct 33.7 L 35.0 MCV 105.3 H 106.9 H MCH 34.4 H 33.6 H MCHC 32.7 L 31.5 L RDW 16.3 H 16.7 H Plt Count 135 117 L MPV 12.3 H 12.8 H Neut % (Auto) 92.0 H 93.2 H Lymph % (Auto) 2.0 L 2.2 L [place] % (Auto) 6.0 4.0 Eos % (Auto) 0.0 0.0 Baso % (Auto) 0.0 0.6 Neut # 26.0 H 25.8 H Lymph # 0.6 L 0.6 L [place] # 1.7 H 1.1 H Eos # 0.0 0.0 Baso # 0.0 0.2 Neutrophils % (Manual) 74 69 Band Neutrophils % 22 H* 28 H* Lymphocytes % (Manual) 1 L 1 L Monocytes % (Manual) 3 2 Platelet Estimate Normal Slightly decreased L Large Platelets Present Hypochromasia (manual) Slight Slight Poikilocytosis (manual Slight Slight Anisocytosis (manual) Slight Slight Tear Drop Cells Slight Puncture Site pCO2 pO2 HCO3 ABG pH ABG Total CO2 ABG O2 Saturation ABG Base Excess Seng Test ABG Potassium A-a O2 Difference Respiratory Index Glucose Lactate Mechanical Rate FiO2 Tidal Volume PEEP Crit Value Called To Crit Value Called By Crit Value Read Back Blood Gas Notified Time Sodium 137 Potassium 5.2 Chloride 106 Carbon Dioxide 23 Anion Gap 13 BUN 71 H Creatinine 1.3 H Est GFR ( Amer) 48 Est GFR (Non-Af Amer) 40 POC Glucose (mg/dL) Random Glucose 81 Calcium 7.4 L Phosphorus 5.8 H Magnesium 2.5 H Total Bilirubin 0.8 AST 50 H D ALT 49 Alkaline Phosphatase 205 H Total Protein 5.3 L Albumin 2.0 L Globulin 3.3 Albumin/Globulin Ratio 0.6 L Arterial Blood Potassium 09/16/16 09/16/16 09/16/16 06:11 08:06 08:37 WBC RBC Hgb Hct MCV MCH MCHC RDW Plt Count MPV Neut % (Auto) Lymph % (Auto) [place] % (Auto) Eos % (Auto) Baso % (Auto) Neut # Lymph # [place] # Eos # Baso # Neutrophils % (Manual) Band Neutrophils % Lymphocytes % (Manual) Monocytes % (Manual) Platelet Estimate Large Platelets Hypochromasia (manual) Poikilocytosis (manual Anisocytosis (manual) Tear Drop Cells Puncture Site Rf pCO2 32 L pO2 132 H HCO3 14.8 L ABG pH 7.23 L ABG Total CO2 14.4 L ABG O2 Saturation 100.2 H ABG Base Excess -13.0 L Seng Test Na ABG Potassium 6.1 H A-a O2 Difference 541.0 Respiratory Index 4.1 Glucose 104 Lactate 8.1 H* Mechanical Rate 20 FiO2 100.0 Tidal Volume 400 PEEP 5 Crit Value Called To Dr efe brush Crit Value Called By Jessy lanza director funds development Crit Value Read Back Y Blood Gas Notified Time 845 Sodium 135 136.0 Potassium 6.0 H Chloride 103 108.0 H Carbon Dioxide 17 L Anion Gap 21 H BUN 68 H Creatinine 1.6 H Est GFR ( Amer) 38 Est GFR (Non-Af Amer) 31 POC Glucose (mg/dL) 147 H Random Glucose 56 L Calcium 7.1 L Phosphorus 7.1 H Magnesium 2.5 H Total Bilirubin 1.0 AST 343 H D ALT 253 H D Alkaline Phosphatase 235 H Total Protein 5.4 L Albumin 2.0 L Globulin 3.4 Albumin/Globulin Ratio 0.6 L Arterial Blood Potassium 6.1 H 07/01/2309/16/16 09/16/16 11:25 12:08 13:24 WBC RBC Hgb Hct MCV MCH MCHC RDW Plt Count MPV Neut % (Auto) Lymph % (Auto) [place] % (Auto) Eos % (Auto) Baso % (Auto) Neut # Lymph # [place] # Eos # Baso # Neutrophils % (Manual) Band Neutrophils % Lymphocytes % (Manual) Monocytes % (Manual) Platelet Estimate Large Platelets Hypochromasia (manual) Poikilocytosis (manual Anisocytosis (manual) Tear Drop Cells Puncture Site pCO2 pO2 HCO3 ABG pH ABG Total CO2 ABG O2 Saturation ABG Base Excess Seng Test ABG Potassium A-a O2 Difference Respiratory Index Glucose Lactate Mechanical Rate FiO2 Tidal Volume PEEP Crit Value Called To Crit Value Called By Crit Value Read Back Blood Gas Notified Time Sodium Potassium Chloride Carbon Dioxide Anion Gap BUN Creatinine Est GFR ( Amer) Est GFR (Non-Af Amer) POC Glucose (mg/dL) 59 L 192 H 130 H Random Glucose Calcium Phosphorus Magnesium Total Bilirubin AST ALT Alkaline Phosphatase Total Protein Albumin Globulin Albumin/Globulin Ratio Arterial Blood Potassium 09/16/16 15:23 WBC RBC Hgb Hct MCV MCH MCHC RDW Plt Count MPV Neut % (Auto) Lymph % (Auto) [place] % (Auto) Eos % (Auto) Baso % (Auto) Neut # Lymph # [place] # Eos # Baso # Neutrophils % (Manual) Band Neutrophils % Lymphocytes % (Manual) Monocytes % (Manual) Platelet Estimate Large Platelets Hypochromasia (manual) Poikilocytosis (manual Anisocytosis (manual) Tear Drop Cells Puncture Site pCO2 pO2 HCO3 ABG pH ABG Total CO2 ABG O2 Saturation ABG Base Excess Seng Test ABG Potassium A-a O2 Difference Respiratory Index Glucose Lactate Mechanical Rate FiO2 Tidal Volume PEEP Crit Value Called To Crit Value Called By Crit Value Read Back Blood Gas Notified Time Sodium Potassium Chloride Carbon Dioxide Anion Gap BUN Creatinine Est GFR ( Amer) Est GFR (Non-Af Amer) POC Glucose (mg/dL) 144 H Random Glucose Calcium Phosphorus Magnesium Total Bilirubin AST ALT Alkaline Phosphatase Total Protein Albumin Globulin Albumin/Globulin Ratio Arterial Blood Potassium Critical Care Progress Note - Nutrition Nutrition: Nutrition Category Date Time Status NPO Diet [DIET] Diets 09/15/16 Breakfast Active Assessment/Plan (1) Acute respiratory failure Current Visit: Yes Status: Acute Comment: ccontinue ventilatory support Surgical consult for tracheostomy and PEG insertion Continue diuretics and present treatment Continue with weaning as tolerated (2) CHF exacerbation Current Visit: Yes Status: Resolved (3) Closed fracture of greater trochanter of left femur Current Visit: Yes Status: Acute (4) Garden grade IV closed subcapital fracture of proximal end of right femur Current Visit: Yes Status: Acute Attending/Attestation - Attestation I have personally seen and examined this patient.: Yes I have fully participated in the care of the patient.: Yes I have reviewed all pertinent clinical information: Yes Notes (Text): 09/16/16 16:33 Patient seen and examined in the intensive care unit. Case discussed with house staff in the morning rounds. Status post tracheostomy and PEG insertion yesterday complicated by hypotension On high dose of Levophed, phenylephrine and dopamine On ventilatory support FiO2 100% Triple antibiotic therapy Prognosis poor DNR/DNI
--- NOTE | 2016-09-16 10:21 | RAD ---
HISTORY: assessment for poss perforation COMPARISON: No prior. FINDINGS: BOWEL: A PEG tube is in place. Apparently contrast per PEG tube was introduced and partially opacifies/partially outlines the stomach. No gross extravasation of contrast beyond the gastric confines is seen on this single frontal view to suggest a gross gastric perforation. No obstruction. There is bilateral subdiaphragmatic free air seen. As per discussion with the ICU nurse Marlyn, taking care of this patient, the PEG tube is inserted yesterday and the free air may be attributed to the recent PEG tube insertion. The patient abdomen is "Soft" on physical exam according to the nurse. BONES: Thoracolumbar scoliosis and spondylosis. Partially visualized is a right hip fracture details of which are unclear on this single view OTHER FINDINGS: None. IMPRESSION: Subdiaphragmatic free air with the recent PEG insertion. No gross gastric contrast extravasation on this single view. No bowel obstruction appreciated. Continued close follow-up recommended Right hip fracture - the ICU nurse Marlyn, is also aware of this. Thoraco lumbar scoliosis and spondylosis
[2016-09-16] MEDS: Cefepime IV 1 gm in Dextrose 1 GM/50 ML BAG IVPB SCH ×2 (10:32→21:58)
[2016-09-16] MEDS ORDERED: DOPamine 400mg/250ml D5W 400 MG/250 ML BAG IV PRN (11:22)
--- NOTE | 2016-09-16 11:41 | CP.PCM.PN ---
Subjective - Date & Time of Evaluation Date of Evaluation: 09/16/16 Time of Evaluation: 08:00 - Subjective Subjective: events note recultured iv antibiotics ordered prognoosis poor dnr in effect Objective - Vital Signs/Intake and Output Vital Signs (last 24 hours): Temp Pulse Resp BP Pulse Ox 98 F 106 H 28 H 71/33 L 85 L 09/16/16 06:30 09/16/16 11:03 09/16/16 11:03 09/16/16 11:04 09/16/16 11:03 Intake and Output: 09/16/16 09/16/16 06:59 18:59 Intake Total 2139 1110 Output Total 160 0 Balance 1979 1110 - Medications Medications: Current Medications Acetaminophen (Tylenol 650mg/20.3ml Solution Ud) 650 mg PO Q6H PRN PRN Reason: temp.100.4&above;mild pain 1-3 Last Admin: 08/25/16 00:45 Dose: 650 mg Albuterol/Ipratropium (Duoneb 3 Mg/0.5 Mg (3 Ml) Ud) 3 ml INH RQ6 [facility] Last Admin: 09/16/16 08:02 Dose: 3 ml Digoxin (Lanoxin) 0.25 mg IVP DAILY@1800 [place] Famotidine (Pepcid) 20 mg IVP DAILY [facility] Last Admin: 09/16/16 10:32 Dose: 20 mg Heparin Sodium (Porcine) (Heparin) 5,000 units SC Q12 [place] Last Admin: 09/14/16 21:51 Dose: 5,000 units Cefepime HCl (Maxipime Iv 1 Gm Premix) 1 gm in 50 mls @ 100 mls/hr IVPB Q12H [facility] Last Admin: 09/16/16 10:32 Dose: 100 mls/hr Linezolid (Zyvox 600mg/300ml D5w) 600 mg in 300 mls @ 200 mls/hr IVPB Q12 [facility] Last Admin: 09/15/16 23:12 Dose: 200 mls/hr Micafungin Sodium 100 mg/ (Sodium Chloride) 100 mls @ 100 mls/hr IV Q24H [place] Last Admin: 09/15/16 23:12 Dose: 100 mls/hr Norepinephrine Bitartrate 4 mg (/ Sodium Chloride) 254 mls @ 15.24 mls/hr IV .[id number] PRN; Protocol; 4 MCG/MIN PRN Reason: TITRATE PER MD ORDER Last Admin: 09/16/16 08:00 Dose: 20 mcg/min, 76.2 mls/hr Phenylephrine HCl 30 mg/ (Dextrose) 253 mls @ 10.12 mls/hr IV .Q24H PRN; Protocol; 20 MCG/MIN PRN Reason: TITRATE PER MD ORDER Last Titration: 09/16/16 10:57 Dose: 100 mcg/min, 50.6 mls/hr Dopamine HCl/Dextrose (Dopamine 400mg/250ml D5w) 400 mg in 250 mls @ 3.75 mls/ hr IV .Q24H PRN; Protocol; 2 MCG/KG/MIN PRN Reason: TITRATE PER MD ORDER Dextrose (Dextrose 10% In Water) 1,000 mls @ 30 mls/hr IV .Q24H [place] Lisinopril (Zestril) 5 mg PO DAILY [place] Last Admin: 09/16/16 10:22 Dose: Not Given Lorazepam (Ativan) 1 mg IVP Q3H PRN PRN Reason: Agitation Last Admin: 09/14/16 22:10 Dose: 1 mg Metoprolol Tartrate (Lopressor) 25 mg PO BID [place] Last Admin: 09/12/16 09:29 Dose: 25 mg Morphine Sulfate (Morphine) 1 mg IV Q4 PRN PRN Reason: Pain, moderate (4-7) Last Admin: 09/14/16 09:44 Dose: 1 mg - Labs Labs: 09/16/16 06:11 09/16/16 06:11 PT 13.5 SECONDS (9.7-12.2) H 09/14/16 11:40 INR 1.2 09/14/16 11:40 APTT 37 SECONDS (21-34) H 09/14/16 11:40 - Constitutional Appears: Confused - Head Exam Head Exam: NORMOCEPHALIC - Eye Exam Eye Exam: absent: Scleral icterus - ENT Exam ENT Exam: Mucous Membranes Dry - Neck Exam Neck Exam: absent: Lymphadenopathy - Respiratory Exam Respiratory Exam: Decreased Breath Sounds - Cardiovascular Exam Cardiovascular Exam: REGULAR RHYTHM, +S1, +S2 - GI/Abdominal Exam GI & Abdominal Exam: Distended, Soft - Rectal Exam Rectal Exam: Deferred - Exam Exam: NORMAL INSPECTION Assessment and Plan (1) Acute respiratory failure Status: Acute (2) Closed fracture of greater trochanter of left femur Status: Acute (3) Contusion of head Status: Acute (4) Fall Status: Acute (5) Garden grade IV closed subcapital fracture of proximal end of right femur Status: Acute (6) Pelvic fracture Status: Acute (7) Pleural effusion due to CHF (congestive heart failure) Status: Acute (8) Right middle lobe pneumonia Status: Acute (9) CHF (NYHA class III, ACC/AHA stage C) Status: Chronic (10) Degenerative joint disease of right hip Status: Chronic (11) Multifocal atrial tachycardia Status: Chronic (12) Arrhythmia Status: Resolved (13) CHF exacerbation Status: Resolved (14) Dehydration Status: Resolved (15) Pleural effusion, right Status: Resolved (16) Sepsis Status: Acute
--- NOTE | 2016-09-16 12:21 | RAD ---
HISTORY: s/p trach/peg COMPARISON: 09/10/2016 FINDINGS: LUNGS: Tracheostomy tube noted projecting to the right of the trachea likely related to patient rotation. Biapical pleural thickening with upper lobe granulomatous changes. Scattered nodularity throughout both lungs. Patchy airspace consolidative changes at the left lung base. Additional mild nodularity at the right lung base. Right PICC line with tip extending to the right SVC. PLEURA: No significant pleural effusion identified, no pneumothorax apparent. CARDIOVASCULAR: Normal. OSSEOUS STRUCTURES: Degenerative changes in the spine and shoulders. Patchy sclerosis of the proximal humeri bilaterally. VISUALIZED UPPER ABDOMEN: Free intraperitoneal air underneath the bilateral hemidiaphragms suggestive for free intraperitoneal air likely related to recent instrumentation and/or Peg tube placement. Clinical correlation. OTHER FINDINGS: None. IMPRESSION: Free intraperitoneal air underneath the bilateral hemidiaphragms suggestive for free intraperitoneal air likely related to recent instrumentation and/or Peg tube placement. Clinical correlation. Tracheostomy tube noted projecting to the right of the trachea likely related to patient rotation. Biapical pleural thickening with upper lobe granulomatous changes. Scattered nodularity throughout both lungs. Patchy airspace consolidative changes at the left lung base. Additional mild nodularity at the right lung base. Right PICC line with tip extending to the right SVC.
--- NOTE | 2016-09-16 14:05 | CP.PCM.PN ---
Subjective - Date & Time of Evaluation Date of Evaluation: 09/16/16 Time of Evaluation: 14:01 - Subjective Subjective: Patient lethargic, on respirator and IV Levophed. IV antibiotics changed by Dr Stanley pending blood and urine cultures results. Still with marked leukocytosis. Objective - Vital Signs/Intake and Output Vital Signs (last 24 hours): Temp Pulse Resp BP Pulse Ox 98.4 F 122 H 27 H 169/143 H 88 L 09/16/16 12:00 09/16/16 13:44 09/16/16 13:44 09/16/16 13:44 09/16/16 13:44 Intake and Output: 09/16/16 09/16/16 06:59 18:59 Intake Total 2139 1958 Output Total 160 0 Balance 1978 1958 - Medications Medications: Current Medications Acetaminophen (Tylenol 650mg/20.3ml Solution Ud) 650 mg PO Q6H PRN PRN Reason: temp.100.4&above;mild pain 1-3 Last Admin: 08/25/16 00:45 Dose: 650 mg Albuterol/Ipratropium (Duoneb 3 Mg/0.5 Mg (3 Ml) Ud) 3 ml INH RQ6 [facility] Last Admin: 09/16/16 13:07 Dose: 3 ml Digoxin (Lanoxin) 0.25 mg IVP DAILY@1800 [place] Famotidine (Pepcid) 20 mg IVP DAILY [facility] Last Admin: 09/16/16 10:32 Dose: 20 mg Heparin Sodium (Porcine) (Heparin) 5,000 units SC Q12 [place] Last Admin: 09/14/16 21:51 Dose: 5,000 units Cefepime HCl (Maxipime Iv 1 Gm Premix) 1 gm in 50 mls @ 100 mls/hr IVPB Q12H [place] Last Admin: 09/16/16 10:32 Dose: 100 mls/hr Linezolid (Zyvox 600mg/300ml D5w) 600 mg in 300 mls @ 200 mls/hr IVPB Q12 [place] Last Admin: 09/15/16 23:12 Dose: 200 mls/hr Micafungin Sodium 100 mg/ (Sodium Chloride) 100 mls @ 100 mls/hr IV Q24H [place] Last Admin: 09/15/16 23:12 Dose: 100 mls/hr Norepinephrine Bitartrate 4 mg (/ Sodium Chloride) 254 mls @ 15.24 mls/hr IV .[id number] PRN; Protocol; 4 MCG/MIN PRN Reason: TITRATE PER MD ORDER Last Admin: 09/16/16 12:09 Dose: 20 mcg/min, 76.2 mls/hr Phenylephrine HCl 30 mg/ (Dextrose) 253 mls @ 10.12 mls/hr IV .Q24H PRN; Protocol; 20 MCG/MIN PRN Reason: TITRATE PER MD ORDER Last Admin: 09/16/16 13:32 Dose: 180 mcg/min, 91.08 mls/hr Dopamine HCl/Dextrose (Dopamine 400mg/250ml D5w) 400 mg in 250 mls @ 3.75 mls/ hr IV .Q24H PRN; Protocol; 2 MCG/KG/MIN PRN Reason: TITRATE PER MD ORDER Last Titration: 09/16/16 13:50 Dose: 5 mcg/kg/min, 9.375 mls/hr Dextrose (Dextrose 10% In Water) 1,000 mls @ 30 mls/hr IV .Q24H [facility] Last Admin: 09/16/16 11:40 Dose: 30 mls/hr Lisinopril (Zestril) 5 mg PO DAILY [facility] Last Admin: 09/16/16 10:22 Dose: Not Given Lorazepam (Ativan) 1 mg IVP Q3H PRN PRN Reason: Agitation Last Admin: 09/14/16 22:10 Dose: 1 mg Metoprolol Tartrate (Lopressor) 25 mg PO BID [facility] Last Admin: 09/12/16 09:29 Dose: 25 mg Morphine Sulfate (Morphine) 1 mg IV Q4 PRN PRN Reason: Pain, moderate (4-7) Last Admin: 09/14/16 09:44 Dose: 1 mg - Labs Labs: 09/16/16 06:11 09/16/16 06:11 PT 13.5 SECONDS (9.7-12.2) H 09/14/16 11:40 INR 1.2 09/14/16 11:40 APTT 37 SECONDS (21-34) H 09/14/16 11:40 - Constitutional Appears: Chronically Ill - Head Exam Head Exam: NORMOCEPHALIC - Eye Exam Eye Exam: Normal appearance - ENT Exam ENT Exam: Normal Exam - Neck Exam Neck Exam: Normal Inspection - Respiratory Exam Additional comments: Rhonchi heard at both bases. - Cardiovascular Exam Cardiovascular Exam: Tachycardia, REGULAR RHYTHM - GI/Abdominal Exam GI & Abdominal Exam: Soft, Normal Bowel Sounds - Rectal Exam Rectal Exam: Deferred - Extremities Exam Extremities Exam: Calf Tenderness - Back Exam Back Exam: NORMAL INSPECTION - Neurological Exam Additional comments: Lethargic. - Skin Skin Exam: Dry, Intact, Normal Color, Warm Assessment and Plan (1) Closed fracture of greater trochanter of left femur Status: Acute (2) Dehydration Status: Resolved (3) Sepsis Assessment & Plan: IV antibiotics as per Dr Stanley. Prognosis poor. Discussed patient's conditions and prognosis with her who was present at bedside today. Status: Acute (4) Fall Status: Acute (5) Arrhythmia Status: Resolved (6) Contusion of head Status: Acute (7) Garden grade IV closed subcapital fracture of proximal end of right femur Status: Acute (8) CHF exacerbation Status: Resolved (9) Acute respiratory failure Status: Acute (10) Pleural effusion, right Status: Resolved (11) Right middle lobe pneumonia Status: Acute (12) VRE (vancomycin resistant enterococcus) culture positive Status: Acute
[2016-09-16] MEDS: Linezolid 600 mg in D5W 300 ml 600 MG/300 ML BAG IVPB SCH ×2 (14:24→21:47)
[2016-09-16 17:08] VITALS: PULSE 111
[2016-09-16] MEDS ORDERED: Digoxin 500 mcg/2ml (0.5 mg/2ml) Inj IVP SCH (18:00)
[2016-09-16] MEDS: Micafungin 100 MG in Sodium Chloride 0.9% 100 ML IV SCH (22:35)
[2016-09-17] MEDS: Albuterol-Ipratrop 3 mg / 0.5 (3 ml) UD INH SCH ×3 (01:43→13:30)
[2016-09-17 06:00] VITALS: RESP 20
[2016-09-17 06:07] VITALS: TEMP 97
[2016-09-17 06:26] LABS: BASO # 0.1 K/uL (0.0-0.2); BASO % 0.2 % (0.0-2.0); EOS # 0.1 K/uL (0.0-0.7); EOS % 0.3 % (0.0-4.0); LYMPH # 1.6 K/uL (1.0-4.3); LYMPH % 4.2 % (20.0-40.0); MEAN CELL VOLUME 118.4 fL (81.0-99.0); MEAN CORPUSCULAR HEMOGLOBIN 33.3 pg (27.0-31.0); MEAN CORPUSCULAR HGB CONC 28.1 g/dL (33.0-37.0); MEAN PLATELET VOLUME 13.4 fL (7.2-11.7); MONO % 5.1 % (0.0-10.0); NEUT # 34.7 K/uL (1.8-7.0); NEUT % 90.2 % (50.0-75.0); NRBC % 0.1 % (0.0-2.0); PLATELET COUNT 51 K/uL (130-400); RBC 2.34 Mil/uL (3.80-5.20); RED CELL DISTRIBUTION WIDTH 18.1 % (11.5-14.5)
[2016-09-17 06:38] LABS: ALBUMIN 1.5 g/dL (3.5-5.0)
[2016-09-17 06:42] LABS: ALB/GLOB RATIO 0.6 (1.0-2.1); BLOOD UREA NITROGEN 62 mg/dL (7-17); CALCIUM 6.9 mg/dl (8.6-10.4); MAGNESIUM 2.7 mg/dL (1.6-2.3)
[2016-09-17 06:54] LABS: HEMOGLOBIN 7.8 g/dL (11.0-16.0); WHITE BLOOD COUNT 38.4 K/uL (4.8-10.8)
[2016-09-17 06:56] LABS: GFR AFRICAN-AMERICAN 29; GFR NON-AFRICAN AMERICAN 24
[2016-09-17 07:18] LABS: ALT/SGPT 5468 U/L (9-52)
[2016-09-17 07:29] LABS: AST/SGOT > 7500 U/L (14-36)
--- NOTE | 2016-09-17 07:38 | CP.CCUPN ---
CCU Subjective - Physician Review Events Since Last Encounter (Free Text): 09/17/16 07:32 Pt S&E. Pt was placed on triple pressor therapy yesterday due to hypotension; levophed, phenylephrine, dopamine. Towards end of afternoon pt BP escalated to 230+SBP so pressors were titrated down. Now on 10 mcg of levophed. Persistent hypoglycemia so started on D10. Gastrograffin was shot into PEG tube and imaging displayed no leak from PEG or extravasation of contrast. Pt is likely in shock with multi-organ failure, shock liver, DELMER, complete heart block, possible DIC. No longer alert. BP unmeasurable by cough, ~80SBP palpation. CCU Objective - Vital Signs / Intake & Output Vital Signs (Last 4 hours): Vital Signs Temp Pulse Resp BP Pulse Ox 09/17/16 07:00 37 L 20 76/0 L 09/17/16 06:00 44 L 20 09/17/16 05:00 56 L 20 86/0 L 94 L 09/17/16 04:10 76 21 77/15 L 94 L 09/17/16 04:00 97 F L 77 23 94 L Intake and Output (Last 8hrs): Intake & Output 09/16/16 09/17/16 09/17/16 22:59 06:59 14:59 Intake Total 2461.8 583.8 67.5 Output Total 0 0 0 Balance 2461.8 583.8 67.5 Intake: IV 1029 Intake, IV Amount 1432.8 583.8 67.5 Right Distal Port PICC 710 100 Right Medial Port PICC 60.3 Right PICC 240 240 30 Rt PICC Y-site 422.5 243.8 37.5 Output: Urine 0 0 0 Urethral (Martinez) 0 0 0 - Physical Exam Head: Positive for: Normocephalic. Negative for: Atraumatic Pupils: Positive for: Sluggish Conjunctiva: Negative for: Injected, Icteric Neck: Positive for: Other (trach in place, good positioning, C/D/I). Negative for: JVD, Bruit Respiratory/Chest: Positive for: Good Air Exchange (tachypneic), Other (vent sounds heard throughout). Negative for: Respiratory Distress, Accessory Muscle Use, Wheezes, Retracting, Rhonchi Cardiovascular: Positive for: Irregular Rhythm, Bradycardic, Other (hypotensive ). Negative for: Murmurs, Peripheal Pulses Present (unable to palpate radial, femoral, DP/PT) Abdomen: Positive for: Feeding Tubes (G-tube site c/d/i). Negative for: Distention Upper Extremity: Positive for: Normal Inspection, Other (mittens in place b/l). Negative for: Edema, NORMAL PULSES Lower Extremity: Positive for: Temperature Abnormalties. Negative for: Normal Inspection, Edema, NORMAL PULSES, Normal ROM, Swelling Neurological: Positive for: Other (no longer alert or responsive). Negative for : Speech Normal Skin: Positive for: Warm, Dry, Normal Color. Negative for: Rashes Psychiatric: Negative for: Alert, Oriented x 3 - Medications Active Medications: Active Medications Generic Name Dose Route Start Last Admin Trade Name Freq PRN Reason Stop Dose Admin Acetaminophen 650 mg 08/14/16 23:50 08/25/16 00:45 Tylenol 650mg/20.3ml Solution Ud PO 650 mg Q6H PRN Administration temp.100.4&above;mild pain 1-3 Albuterol/Ipratropium 3 ml 08/16/16 14:00 09/17/16 01:43 Duoneb 3 Mg/0.5 Mg (3 Ml) Ud INH 3 ml RQ6 [place] Administration Digoxin 0.25 mg 09/16/16 18:00 09/16/16 17:07 Lanoxin IVP 0.25 mg DAILY@1800 [place] Administration Famotidine 20 mg 09/16/16 10:26 09/16/16 10:32 Pepcid IVP 20 mg DAILY [place] Administration Heparin Sodium (Porcine) 5,000 units 09/03/16 10:00 09/16/16 21:31 Heparin SC 5,000 units Q12 [place] Administration Cefepime HCl 1 gm in 50 mls @ 100 mls/hr 09/15/16 22:30 09/16/16 21:58 Maxipime Iv 1 Gm Premix IVPB 100 mls/hr Q12H [place] Administration Linezolid 600 mg in 300 mls @ 200 mls/hr 09/15/16 22:30 09/16/16 21:47 Zyvox 600mg/300ml D5w IVPB 200 mls/hr Q12 [place] Administration Micafungin Sodium 100 mg/ 100 mls @ 100 mls/hr 09/15/16 23:30 09/16/16 22:35 Sodium Chloride IV 100 mls/hr Q24H [place] Administration Norepinephrine Bitartrate 4 mg 254 mls @ 15.24 mls/hr 09/16/16 00:58 21:00 / Sodium Chloride IV 0 mcg/min .[id number] PRN 0 mls/hr TITRATE PER MD ORDER Titration Protocol 4 MCG/MIN Phenylephrine HCl 30 mg/ 253 mls @ 10.12 mls/hr 09/16/16 09:47 09/16/16 18:38 Dextrose IV 0 mcg/min .Q24H PRN 0 mls/hr TITRATE PER MD ORDER Titration Protocol 20 MCG/MIN Dopamine HCl/Dextrose 400 mg in 250 mls @ 3.75 mls/hr 09/16/16 11:22 18:37 Dopamine 400mg/250ml D5w IV 0 mcg/kg/min .Q24H PRN 0 mls/hr TITRATE PER MD ORDER Titration Protocol 2 MCG/KG/MIN Dextrose 1,000 mls @ 30 mls/hr 09/16/16 11:37 09/16/16 11:40 Dextrose 10% In Water IV 30 mls/hr .Q24H [place] Administration Lisinopril 5 mg 08/17/16 10:00 09/16/16 10:22 Zestril PO Not Given DAILY [place] Lorazepam 1 mg 09/14/16 10:31 09/14/16 22:10 Ativan IVP 1 mg Q3H PRN Administration Agitation Metoprolol Tartrate 25 mg 08/12/16 18:00 09/12/16 09:29 Lopressor PO 25 mg BID [place] Administration Morphine Sulfate 1 mg 09/13/16 16:22 09/16/16 18:31 Morphine IV 1 mg Q4 PRN Administration Pain, moderate (4-7) - Patient Studies Lab Studies: Microbiology Studies 09/15/16 22:30 Blood Culture - Preliminary Blood NO GROWTH AFTER 24 HOURS 09/15/16 22:45 Blood Culture - Preliminary Blood NO GROWTH AFTER 24 HOURS Lab Studies 09/17/16 09/17/16 09/17/16 Range/Units 07:00 06:20 06:20 WBC 38.4 H* (4.8-10.8) K/uL RBC 2.34 L (3.80-5.20) Mil/uL Hgb 7.8 L D (11.0-16.0) g/dL Hct 27.8 L (34.0-47.0) % MCV 118.4 H D (81.0-99.0) fL MCH 33.3 H (27.0-31.0) pg MCHC 28.1 L (33.0-37.0) g/dL RDW 18.1 H (11.5-14.5) % Plt Count 51 L D (130-400) K/uL MPV 13.4 H (7.2-11.7) fL Neut % (Auto) 90.2 H (50.0-75.0) % Lymph % (Auto) 4.2 L (20.0-40.0) % [place] % (Auto) 5.1 (0.0-10.0) % Eos % (Auto) 0.3 (0.0-4.0) % Baso % (Auto) 0.2 (0.0-2.0) % Neut # 34.7 H (1.8-7.0) K/uL Lymph # 1.6 (1.0-4.3) K/uL [place] # 2.0 H (0.0-0.8) K/uL Eos # 0.1 (0.0-0.7) K/uL Baso # 0.1 (0.0-0.2) K/uL Neutrophils % (Manual) (50-75) % Band Neutrophils % (0-2) % Lymphocytes % (Manual) (20-40) % Monocytes % (Manual) (0-10) % Platelet Estimate (NORMAL) Large Platelets Hypochromasia (manual) Poikilocytosis (manual Anisocytosis (manual) Tear Drop Cells Puncture Site pCO2 (35-45) mm/Hg pO2 (80-100) mm/Hg HCO3 (21-28) mmol/L ABG pH (7.35-7.45) ABG Total CO2 (22-28) mmol/L ABG O2 Saturation (95-98) % ABG Base Excess (-2.0-3.0) mmol/L Seng Test ABG Potassium (3.6-5.2) mmol/L A-a O2 Difference mm/Hg Respiratory Index Sodium 126 L (132-148) mmol/l Chloride 99 (98-107) mmol/L Glucose (65-105) mg/dl Lactate (0.7-2.1) mmol/L Mechanical Rate FiO2 % Tidal Volume PEEP Crit Value Called To Crit Value Called By Crit Value Read Back Blood Gas Notified Time Potassium 6.6 H* (3.6-5.2) mmol/L Carbon Dioxide 10 L* D (22-30) mmol/L Anion Gap 24 H (10-20) BUN 62 H (7-17) mg/dL Creatinine 2.0 H (0.7-1.2) MG/DL Est GFR ( Amer) 29 Est GFR (Non-Af Amer) 24 POC Glucose (mg/dL) 208 H (65-110) mg/dL Random Glucose 259 H (65-105) mg/dL Calcium 6.9 L (8.6-10.4) mg/dl Phosphorus 9.5 H (2.5-4.5) mg/dL Magnesium 2.7 H (1.6-2.3) mg/dL Total Bilirubin 2.0 H (0.2-1.3) mg/dL AST > 7500 H (14-36) U/L ALT 5468 H (9-52) U/L Alkaline Phosphatase 243 H (38-126) U/L Total Protein 4.1 L (6.3-8.3) g/dL Albumin 1.5 L D (3.5-5.0) g/dL Globulin 2.6 (2.2-3.9) gm/dL Albumin/Globulin Ratio 0.6 L (1.0-2.1) Arterial Blood Potassium (3.6-5.2) mmol/L 09/17/16 09/17/16 09/17/16 Range/Units 05:06 02:27 00:30 WBC (4.8-10.8) K/uL RBC (3.80-5.20) Mil/uL Hgb (11.0-16.0) g/dL Hct (34.0-47.0) % MCV (81.0-99.0) fL MCH (27.0-31.0) pg MCHC (33.0-37.0) g/dL RDW (11.5-14.5) % Plt Count (130-400) K/uL MPV (7.2-11.7) fL Neut % (Auto) (50.0-75.0) % Lymph % (Auto) (20.0-40.0) % [place] % (Auto) (0.0-10.0) % Eos % (Auto) (0.0-4.0) % Baso % (Auto) (0.0-2.0) % Neut # (1.8-7.0) K/uL Lymph # (1.0-4.3) K/uL [place] # (0.0-0.8) K/uL Eos # (0.0-0.7) K/uL Baso # (0.0-0.2) K/uL Neutrophils % (Manual) (50-75) % Band Neutrophils % (0-2) % Lymphocytes % (Manual) (20-40) % Monocytes % (Manual) (0-10) % Platelet Estimate (NORMAL) Large Platelets Hypochromasia (manual) Poikilocytosis (manual Anisocytosis (manual) Tear Drop Cells Puncture Site pCO2 (35-45) mm/Hg pO2 (80-100) mm/Hg HCO3 (21-28) mmol/L ABG pH (7.35-7.45) ABG Total CO2 (22-28) mmol/L ABG O2 Saturation (95-98) % ABG Base Excess (-2.0-3.0) mmol/L Seng Test ABG Potassium (3.6-5.2) mmol/L A-a O2 Difference mm/Hg Respiratory Index Sodium (132-148) mmol/l Chloride (98-107) mmol/L Glucose (65-105) mg/dl Lactate (0.7-2.1) mmol/L Mechanical Rate FiO2 % Tidal Volume PEEP Crit Value Called To Crit Value Called By Crit Value Read Back Blood Gas Notified Time Potassium (3.6-5.2) mmol/L Carbon Dioxide (22-30) mmol/L Anion Gap (10-20) BUN (7-17) mg/dL Creatinine (0.7-1.2) MG/DL Est GFR ( Amer) Est GFR (Non-Af Amer) POC Glucose (mg/dL) 268 H 289 H 198 H (65-110) mg/dL Random Glucose (65-105) mg/dL Calcium (8.6-10.4) mg/dl Phosphorus (2.5-4.5) mg/dL Magnesium (1.6-2.3) mg/dL Total Bilirubin (0.2-1.3) mg/dL AST (14-36) U/L ALT (9-52) U/L Alkaline Phosphatase (38-126) U/L Total Protein (6.3-8.3) g/dL Albumin (3.5-5.0) g/dL Globulin (2.2-3.9) gm/dL Albumin/Globulin Ratio (1.0-2.1) Arterial Blood Potassium (3.6-5.2) mmol/L 09/16/16 09/16/16 09/16/16 Range/Units 22:58 21:22 19:16 WBC (4.8-10.8) K/uL RBC (3.80-5.20) Mil/uL Hgb (11.0-16.0) g/dL Hct (34.0-47.0) % MCV (81.0-99.0) fL MCH (27.0-31.0) pg MCHC (33.0-37.0) g/dL RDW (11.5-14.5) % Plt Count (130-400) K/uL MPV (7.2-11.7) fL Neut % (Auto) (50.0-75.0) % Lymph % (Auto) (20.0-40.0) % [place] % (Auto) (0.0-10.0) % Eos % (Auto) (0.0-4.0) % Baso % (Auto) (0.0-2.0) % Neut # (1.8-7.0) K/uL Lymph # (1.0-4.3) K/uL [place] # (0.0-0.8) K/uL Eos # (0.0-0.7) K/uL Baso # (0.0-0.2) K/uL Neutrophils % (Manual) (50-75) % Band Neutrophils % (0-2) % Lymphocytes % (Manual) (20-40) % Monocytes % (Manual) (0-10) % Platelet Estimate (NORMAL) Large Platelets Hypochromasia (manual) Poikilocytosis (manual Anisocytosis (manual) Tear Drop Cells Puncture Site pCO2 (35-45) mm/Hg pO2 (80-100) mm/Hg HCO3 (21-28) mmol/L ABG pH (7.35-7.45) ABG Total CO2 (22-28) mmol/L ABG O2 Saturation (95-98) % ABG Base Excess (-2.0-3.0) mmol/L Seng Test ABG Potassium (3.6-5.2) mmol/L A-a O2 Difference mm/Hg Respiratory Index Sodium (132-148) mmol/l Chloride (98-107) mmol/L Glucose (65-105) mg/dl Lactate (0.7-2.1) mmol/L Mechanical Rate FiO2 % Tidal Volume PEEP Crit Value Called To Crit Value Called By Crit Value Read Back Blood Gas Notified Time Potassium (3.6-5.2) mmol/L Carbon Dioxide (22-30) mmol/L Anion Gap (10-20) BUN (7-17) mg/dL Creatinine (0.7-1.2) MG/DL Est GFR ( Amer) Est GFR (Non-Af Amer) POC Glucose (mg/dL) 52 L 57 L 79 (65-110) mg/dL Random Glucose (65-105) mg/dL Calcium (8.6-10.4) mg/dl Phosphorus (2.5-4.5) mg/dL Magnesium (1.6-2.3) mg/dL Total Bilirubin (0.2-1.3) mg/dL AST (14-36) U/L ALT (9-52) U/L Alkaline Phosphatase (38-126) U/L Total Protein (6.3-8.3) g/dL Albumin (3.5-5.0) g/dL Globulin (2.2-3.9) gm/dL Albumin/Globulin Ratio (1.0-2.1) Arterial Blood Potassium (3.6-5.2) mmol/L 09/16/16 09/16/16 09/16/16 Range/Units 17:15 15:23 13:24 WBC (4.8-10.8) K/uL RBC (3.80-5.20) Mil/uL Hgb (11.0-16.0) g/dL Hct (34.0-47.0) % MCV (81.0-99.0) fL MCH (27.0-31.0) pg MCHC (33.0-37.0) g/dL RDW (11.5-14.5) % Plt Count (130-400) K/uL MPV (7.2-11.7) fL Neut % (Auto) (50.0-75.0) % Lymph % (Auto) (20.0-40.0) % [place] % (Auto) (0.0-10.0) % Eos % (Auto) (0.0-4.0) % Baso % (Auto) (0.0-2.0) % Neut # (1.8-7.0) K/uL Lymph # (1.0-4.3) K/uL [place] # (0.0-0.8) K/uL Eos # (0.0-0.7) K/uL Baso # (0.0-0.2) K/uL Neutrophils % (Manual) (50-75) % Band Neutrophils % (0-2) % Lymphocytes % (Manual) (20-40) % Monocytes % (Manual) (0-10) % Platelet Estimate (NORMAL) Large Platelets Hypochromasia (manual) Poikilocytosis (manual Anisocytosis (manual) Tear Drop Cells Puncture Site pCO2 (35-45) mm/Hg pO2 (80-100) mm/Hg HCO3 (21-28) mmol/L ABG pH (7.35-7.45) ABG Total CO2 (22-28) mmol/L ABG O2 Saturation (95-98) % ABG Base Excess (-2.0-3.0) mmol/L Seng Test ABG Potassium (3.6-5.2) mmol/L A-a O2 Difference mm/Hg Respiratory Index Sodium (132-148) mmol/l Chloride (98-107) mmol/L Glucose (65-105) mg/dl Lactate (0.7-2.1) mmol/L Mechanical Rate FiO2 % Tidal Volume PEEP Crit Value Called To Crit Value Called By Crit Value Read Back Blood Gas Notified Time Potassium (3.6-5.2) mmol/L Carbon Dioxide (22-30) mmol/L Anion Gap (10-20) BUN (7-17) mg/dL Creatinine (0.7-1.2) MG/DL Est GFR ( Amer) Est GFR (Non-Af Amer) POC Glucose (mg/dL) 119 H 144 H 130 H (65-110) mg/dL Random Glucose (65-105) mg/dL Calcium (8.6-10.4) mg/dl Phosphorus (2.5-4.5) mg/dL Magnesium (1.6-2.3) mg/dL Total Bilirubin (0.2-1.3) mg/dL AST (14-36) U/L ALT (9-52) U/L Alkaline Phosphatase (38-126) U/L Total Protein (6.3-8.3) g/dL Albumin (3.5-5.0) g/dL Globulin (2.2-3.9) gm/dL Albumin/Globulin Ratio (1.0-2.1) Arterial Blood Potassium (3.6-5.2) mmol/L 09/16/16 09/16/16 09/16/16 Range/Units 12:08 11:25 08:37 WBC (4.8-10.8) K/uL RBC (3.80-5.20) Mil/uL Hgb (11.0-16.0) g/dL Hct (34.0-47.0) % MCV (81.0-99.0) fL MCH (27.0-31.0) pg MCHC (33.0-37.0) g/dL RDW (11.5-14.5) % Plt Count (130-400) K/uL MPV (7.2-11.7) fL Neut % (Auto) (50.0-75.0) % Lymph % (Auto) (20.0-40.0) % [place] % (Auto) (0.0-10.0) % Eos % (Auto) (0.0-4.0) % Baso % (Auto) (0.0-2.0) % Neut # (1.8-7.0) K/uL Lymph # (1.0-4.3) K/uL [place] # (0.0-0.8) K/uL Eos # (0.0-0.7) K/uL Baso # (0.0-0.2) K/uL Neutrophils % (Manual) (50-75) % Band Neutrophils % (0-2) % Lymphocytes % (Manual) (20-40) % Monocytes % (Manual) (0-10) % Platelet Estimate (NORMAL) Large Platelets Hypochromasia (manual) Poikilocytosis (manual Anisocytosis (manual) Tear Drop Cells Puncture Site Rf pCO2 32 L (35-45) mm/Hg pO2 132 H (80-100) mm/Hg HCO3 14.8 L (21-28) mmol/L ABG pH 7.23 L (7.35-7.45) ABG Total CO2 14.4 L (22-28) mmol/L ABG O2 Saturation 100.2 H (95-98) % ABG Base Excess -13.0 L (-2.0-3.0) mmol/L Seng Test Na ABG Potassium 6.1 H (3.6-5.2) mmol/L A-a O2 Difference 541.0 mm/Hg Respiratory Index 4.1 Sodium 136.0 (132-148) mmol/l Chloride 108.0 H (98-107) mmol/L Glucose 104 (65-105) mg/dl Lactate 8.1 H* (0.7-2.1) mmol/L Mechanical Rate 20 FiO2 100.0 % Tidal Volume 400 PEEP 5 Crit Value Called To Dr efe brush Crit Value Called By Jessy lanza sales operations coordinator Crit Value Read Back Y Blood Gas Notified Time 845 Potassium (3.6-5.2) mmol/L Carbon Dioxide (22-30) mmol/L Anion Gap (10-20) BUN (7-17) mg/dL Creatinine (0.7-1.2) MG/DL Est GFR ( Amer) Est GFR (Non-Af Amer) POC Glucose (mg/dL) 192 H 59 L (65-110) mg/dL Random Glucose (65-105) mg/dL Calcium (8.6-10.4) mg/dl Phosphorus (2.5-4.5) mg/dL Magnesium (1.6-2.3) mg/dL Total Bilirubin (0.2-1.3) mg/dL AST (14-36) U/L ALT (9-52) U/L Alkaline Phosphatase (38-126) U/L Total Protein (6.3-8.3) g/dL Albumin (3.5-5.0) g/dL Globulin (2.2-3.9) gm/dL Albumin/Globulin Ratio (1.0-2.1) Arterial Blood Potassium 6.1 H (3.6-5.2) mmol/L 09/16/16 09/16/16 Range/Units 08:06 06:11 WBC (4.8-10.8) K/uL RBC (3.80-5.20) Mil/uL Hgb (11.0-16.0) g/dL Hct (34.0-47.0) % MCV (81.0-99.0) fL MCH (27.0-31.0) pg MCHC (33.0-37.0) g/dL RDW (11.5-14.5) % Plt Count (130-400) K/uL MPV (7.2-11.7) fL Neut % (Auto) (50.0-75.0) % Lymph % (Auto) (20.0-40.0) % [place] % (Auto) (0.0-10.0) % Eos % (Auto) (0.0-4.0) % Baso % (Auto) (0.0-2.0) % Neut # (1.8-7.0) K/uL Lymph # (1.0-4.3) K/uL [place] # (0.0-0.8) K/uL Eos # (0.0-0.7) K/uL Baso # (0.0-0.2) K/uL Neutrophils % (Manual) 69 (50-75) % Band Neutrophils % 28 H* (0-2) % Lymphocytes % (Manual) 1 L (20-40) % Monocytes % (Manual) 2 (0-10) % Platelet Estimate Slightly decreased L (NORMAL) Large Platelets Present Hypochromasia (manual) Slight Poikilocytosis (manual Slight Anisocytosis (manual) Slight Tear Drop Cells Slight Puncture Site pCO2 (35-45) mm/Hg pO2 (80-100) mm/Hg HCO3 (21-28) mmol/L ABG pH (7.35-7.45) ABG Total CO2 (22-28) mmol/L ABG O2 Saturation (95-98) % ABG Base Excess (-2.0-3.0) mmol/L Seng Test ABG Potassium (3.6-5.2) mmol/L A-a O2 Difference mm/Hg Respiratory Index Sodium (132-148) mmol/l Chloride (98-107) mmol/L Glucose (65-105) mg/dl Lactate (0.7-2.1) mmol/L Mechanical Rate FiO2 % Tidal Volume PEEP Crit Value Called To Crit Value Called By Crit Value Read Back Blood Gas Notified Time Potassium (3.6-5.2) mmol/L Carbon Dioxide (22-30) mmol/L Anion Gap (10-20) BUN (7-17) mg/dL Creatinine (0.7-1.2) MG/DL Est GFR ( Amer) Est GFR (Non-Af Amer) POC Glucose (mg/dL) 147 H (65-110) mg/dL Random Glucose (65-105) mg/dL Calcium (8.6-10.4) mg/dl Phosphorus (2.5-4.5) mg/dL Magnesium (1.6-2.3) mg/dL Total Bilirubin (0.2-1.3) mg/dL AST (14-36) U/L ALT (9-52) U/L Alkaline Phosphatase (38-126) U/L Total Protein (6.3-8.3) g/dL Albumin (3.5-5.0) g/dL Globulin (2.2-3.9) gm/dL Albumin/Globulin Ratio (1.0-2.1) Arterial Blood Potassium (3.6-5.2) mmol/L Laboratory Results - last 24 hr 09/16/16 09/16/16 09/16/16 06:11 08:06 08:37 WBC RBC Hgb Hct MCV MCH MCHC RDW Plt Count MPV Neut % (Auto) Lymph % (Auto) [place] % (Auto) Eos % (Auto) Baso % (Auto) Neut # Lymph # [place] # Eos # Baso # Neutrophils % (Manual) 69 Band Neutrophils % 28 H* Lymphocytes % (Manual) 1 L Monocytes % (Manual) 2 Platelet Estimate Slightly decreased L Large Platelets Present Hypochromasia (manual) Slight Poikilocytosis (manual Slight Anisocytosis (manual) Slight Tear Drop Cells Slight Puncture Site Rf pCO2 32 L pO2 132 H HCO3 14.8 L ABG pH 7.23 L ABG Total CO2 14.4 L ABG O2 Saturation 100.2 H ABG Base Excess -13.0 L Seng Test Na ABG Potassium 6.1 H A-a O2 Difference 541.0 Respiratory Index 4.1 Sodium 136.0 Chloride 108.0 H Glucose 104 Lactate 8.1 H* Mechanical Rate 20 FiO2 100.0 Tidal Volume 400 PEEP 5 Crit Value Called To Dr efe brush Crit Value Called By Jessy lanza sales operations coordinator Crit Value Read Back Y Blood Gas Notified Time 845 Potassium Carbon Dioxide Anion Gap BUN Creatinine Est GFR ( Amer) Est GFR (Non-Af Amer) POC Glucose (mg/dL) 147 H Random Glucose Calcium Phosphorus Magnesium Total Bilirubin AST ALT Alkaline Phosphatase Total Protein Albumin Globulin Albumin/Globulin Ratio Arterial Blood Potassium 6.1 H 09/16/16 09/16/16 09/16/16 11:25 12:08 13:24 WBC RBC Hgb Hct MCV MCH MCHC RDW Plt Count MPV Neut % (Auto) Lymph % (Auto) [place] % (Auto) Eos % (Auto) Baso % (Auto) Neut # Lymph # [place] # Eos # Baso # Neutrophils % (Manual) Band Neutrophils % Lymphocytes % (Manual) Monocytes % (Manual) Platelet Estimate Large Platelets Hypochromasia (manual) Poikilocytosis (manual Anisocytosis (manual) Tear Drop Cells Puncture Site pCO2 pO2 HCO3 ABG pH ABG Total CO2 ABG O2 Saturation ABG Base Excess Seng Test ABG Potassium A-a O2 Difference Respiratory Index Sodium Chloride Glucose Lactate Mechanical Rate FiO2 Tidal Volume PEEP Crit Value Called To Crit Value Called By Crit Value Read Back Blood Gas Notified Time Potassium Carbon Dioxide Anion Gap BUN Creatinine Est GFR ( Amer) Est GFR (Non-Af Amer) POC Glucose (mg/dL) 59 L 192 H 130 H Random Glucose Calcium Phosphorus Magnesium Total Bilirubin AST ALT Alkaline Phosphatase Total Protein Albumin Globulin Albumin/Globulin Ratio Arterial Blood Potassium 09/16/16 09/16/16 09/16/16 15:23 17:15 19:16 WBC RBC Hgb Hct MCV MCH MCHC RDW Plt Count MPV Neut % (Auto) Lymph % (Auto) [place] % (Auto) Eos % (Auto) Baso % (Auto) Neut # Lymph # [place] # Eos # Baso # Neutrophils % (Manual) Band Neutrophils % Lymphocytes % (Manual) Monocytes % (Manual) Platelet Estimate Large Platelets Hypochromasia (manual) Poikilocytosis (manual Anisocytosis (manual) Tear Drop Cells Puncture Site pCO2 pO2 HCO3 ABG pH ABG Total CO2 ABG O2 Saturation ABG Base Excess Seng Test ABG Potassium A-a O2 Difference Respiratory Index Sodium Chloride Glucose Lactate Mechanical Rate FiO2 Tidal Volume PEEP Crit Value Called To Crit Value Called By Crit Value Read Back Blood Gas Notified Time Potassium Carbon Dioxide Anion Gap BUN Creatinine Est GFR ( Amer) Est GFR (Non-Af Amer) POC Glucose (mg/dL) 144 H 119 H 79 Random Glucose Calcium Phosphorus Magnesium Total Bilirubin AST ALT Alkaline Phosphatase Total Protein Albumin Globulin Albumin/Globulin Ratio Arterial Blood Potassium 09/16/16 09/16/16 09/17/16 21:22 22:58 00:30 WBC RBC Hgb Hct MCV MCH MCHC RDW Plt Count MPV Neut % (Auto) Lymph % (Auto) [place] % (Auto) Eos % (Auto) Baso % (Auto) Neut # Lymph # [place] # Eos # Baso # Neutrophils % (Manual) Band Neutrophils % Lymphocytes % (Manual) Monocytes % (Manual) Platelet Estimate Large Platelets Hypochromasia (manual) Poikilocytosis (manual Anisocytosis (manual) Tear Drop Cells Puncture Site pCO2 pO2 HCO3 ABG pH ABG Total CO2 ABG O2 Saturation ABG Base Excess Seng Test ABG Potassium A-a O2 Difference Respiratory Index Sodium Chloride Glucose Lactate Mechanical Rate FiO2 Tidal Volume PEEP Crit Value Called To Crit Value Called By Crit Value Read Back Blood Gas Notified Time Potassium Carbon Dioxide Anion Gap BUN Creatinine Est GFR ( Amer) Est GFR (Non-Af Amer) POC Glucose (mg/dL) 57 L 52 L 198 H Random Glucose Calcium Phosphorus Magnesium Total Bilirubin AST ALT Alkaline Phosphatase Total Protein Albumin Globulin Albumin/Globulin Ratio Arterial Blood Potassium 09/17/16 09/17/16 09/17/16 02:27 05:06 06:20 WBC 38.4 H* RBC 2.34 L Hgb 7.8 L D Hct 27.8 L MCV 118.4 H D MCH 33.3 H MCHC 28.1 L RDW 18.1 H Plt Count 51 L D MPV 13.4 H Neut % (Auto) 90.2 H Lymph % (Auto) 4.2 L [place] % (Auto) 5.1 Eos % (Auto) 0.3 Baso % (Auto) 0.2 Neut # 34.7 H Lymph # 1.6 [place] # 2.0 H Eos # 0.1 Baso # 0.1 Neutrophils % (Manual) Band Neutrophils % Lymphocytes % (Manual) Monocytes % (Manual) Platelet Estimate Large Platelets Hypochromasia (manual) Poikilocytosis (manual Anisocytosis (manual) Tear Drop Cells Puncture Site pCO2 pO2 HCO3 ABG pH ABG Total CO2 ABG O2 Saturation ABG Base Excess Seng Test ABG Potassium A-a O2 Difference Respiratory Index Sodium Chloride Glucose Lactate Mechanical Rate FiO2 Tidal Volume PEEP Crit Value Called To Crit Value Called By Crit Value Read Back Blood Gas Notified Time Potassium Carbon Dioxide Anion Gap BUN Creatinine Est GFR ( Amer) Est GFR (Non-Af Amer) POC Glucose (mg/dL) 289 H 268 H Random Glucose Calcium Phosphorus Magnesium Total Bilirubin AST ALT Alkaline Phosphatase Total Protein Albumin Globulin Albumin/Globulin Ratio Arterial Blood Potassium 09/17/16 09/17/16 06:20 07:00 WBC RBC Hgb Hct MCV MCH MCHC RDW Plt Count MPV Neut % (Auto) Lymph % (Auto) [place] % (Auto) Eos % (Auto) Baso % (Auto) Neut # Lymph # [place] # Eos # Baso # Neutrophils % (Manual) Band Neutrophils % Lymphocytes % (Manual) Monocytes % (Manual) Platelet Estimate Large Platelets Hypochromasia (manual) Poikilocytosis (manual Anisocytosis (manual) Tear Drop Cells Puncture Site pCO2 pO2 HCO3 ABG pH ABG Total CO2 ABG O2 Saturation ABG Base Excess Seng Test ABG Potassium A-a O2 Difference Respiratory Index Sodium 126 L Chloride 99 Glucose Lactate Mechanical Rate FiO2 Tidal Volume PEEP Crit Value Called To Crit Value Called By Crit Value Read Back Blood Gas Notified Time Potassium 6.6 H* Carbon Dioxide 10 L* D Anion Gap 24 H BUN 62 H Creatinine 2.0 H Est GFR ( Amer) 29 Est GFR (Non-Af Amer) 24 POC Glucose (mg/dL) 208 H Random Glucose 259 H Calcium 6.9 L Phosphorus 9.5 H Magnesium 2.7 H Total Bilirubin 2.0 H AST > 7500 H ALT 5468 H Alkaline Phosphatase 243 H Total Protein 4.1 L Albumin 1.5 L D Globulin 2.6 Albumin/Globulin Ratio 0.6 L Arterial Blood Potassium Fingerstick Blood Sugar Results: 208 Critical Care Progress Note - Nutrition Nutrition: Nutrition Category Date Time Status NPO Diet [DIET] Diets 09/15/16 Breakfast Active Assessment/Plan - Assessment and Plan (Free Text) Assessment: 76F with bilateral femur fractures, respiratory failure; POD#2 s/p trach/PEG; now in multi-organ failure Plan: Plan: Neuro: - No longer awake or oriented -GCS 8T - Trach on vent - 100% FiO2 Pulm: - Albuterol/Ipratropium 3ml INH RQ6 - Trach placement 09/15 - in good position, c/d/i, 100% FiO2, unable to titrate CV: - Lopressor being held due to bradycardia -On levophed 10mcg for hypotension - 80s/40s. Phenylephrine if further pressor support needed -incomplete heart block, shock liver Heme: - H/H (09/17): 7.8/27.8; -PLT 51 -all likely secondary to DIC Renal: - BUN/Cr (09/17): 62/2.0 GI: - PEG placement 09/15 - Surgery Consult: Dr. Gale --> help appreciated - Free air under diaphragm - will hold tube feeds for now, transition PO meds to IVP - contrast challenge yesterday showed no extravasation ID: - ID Consult: Dr. Stanley --> help appreciated - Micafungin, Linezolid, Cefeprime - WBC up to 38 DVT proph - SCDs, Heparin 5000 units SC Q12 GI proph - Pepcid 20 IVP daily Overall prognosis extremely poor Code status -DNR/DNI Case discussed with Dr. Zak Xavier, PGY3
--- NOTE | 2016-09-17 07:41 | CP.PCM.PN ---
Subjective - Date & Time of Evaluation Date of Evaluation: 09/17/16 Time of Evaluation: 07:20 - Subjective Subjective: General sx progress note for Dr. Gale-Consuelo Barnhart, PGY-1 Pt S & E at bedside. Pt awake, not alert- unable to obtain ROS. Per nursing- pt was on 3 different pressure support medications last evening, pt was weaned off them, then overnight pt had hypotension- placed back on Levophed. Pt continues with hypotension on Levophed, minimal UOP overnight- 5cc. Objective - Vital Signs/Intake and Output Vital Signs (last 24 hours): Temp Pulse Resp BP Pulse Ox 97 F L 48 L 20 80/0 L 94 L 09/17/16 04:00 09/17/16 07:00 09/17/16 07:11 09/17/16 07:00 09/17/16 05:00 Intake and Output: 09/17/16 09/17/16 06:59 18:59 Intake Total 1376.3 67.5 Output Total 0 0 Balance 1376.3 67.5 - Medications Medications: Current Medications Acetaminophen (Tylenol 650mg/20.3ml Solution Ud) 650 mg PO Q6H PRN PRN Reason: temp.100.4&above;mild pain 1-3 Last Admin: 08/25/16 00:45 Dose: 650 mg Albuterol/Ipratropium (Duoneb 3 Mg/0.5 Mg (3 Ml) Ud) 3 ml INH RQ6 [place] Last Admin: 09/17/16 01:43 Dose: 3 ml Digoxin (Lanoxin) 0.25 mg IVP DAILY@1800 [place] Last Admin: 09/16/16 17:07 Dose: 0.25 mg Famotidine (Pepcid) 20 mg IVP DAILY [facility] Last Admin: 09/16/16 10:32 Dose: 20 mg Heparin Sodium (Porcine) (Heparin) 5,000 units SC Q12 [facility] Last Admin: 09/16/16 21:31 Dose: 5,000 units Cefepime HCl (Maxipime Iv 1 Gm Premix) 1 gm in 50 mls @ 100 mls/hr IVPB Q12H [facility] Last Admin: 09/16/16 21:58 Dose: 100 mls/hr Linezolid (Zyvox 600mg/300ml D5w) 600 mg in 300 mls @ 200 mls/hr IVPB Q12 [place] Last Admin: 09/16/16 21:47 Dose: 200 mls/hr Micafungin Sodium 100 mg/ (Sodium Chloride) 100 mls @ 100 mls/hr IV Q24H [place] Last Admin: 09/16/16 22:35 Dose: 100 mls/hr Norepinephrine Bitartrate 4 mg (/ Sodium Chloride) 254 mls @ 15.24 mls/hr IV .[id number] PRN; Protocol; 4 MCG/MIN PRN Reason: TITRATE PER MD ORDER Last Titration: 09/16/16 21:00 Dose: 0 mcg/min, 0 mls/hr Phenylephrine HCl 30 mg/ (Dextrose) 253 mls @ 10.12 mls/hr IV .Q24H PRN; Protocol; 20 MCG/MIN PRN Reason: TITRATE PER MD ORDER Last Titration: 09/16/16 18:38 Dose: 0 mcg/min, 0 mls/hr Dopamine HCl/Dextrose (Dopamine 400mg/250ml D5w) 400 mg in 250 mls @ 3.75 mls/ hr IV .Q24H PRN; Protocol; 2 MCG/KG/MIN PRN Reason: TITRATE PER MD ORDER Last Titration: 09/16/16 18:37 Dose: 0 mcg/kg/min, 0 mls/hr Dextrose (Dextrose 10% In Water) 1,000 mls @ 30 mls/hr IV .Q24H [facility] Last Admin: 09/16/16 11:40 Dose: 30 mls/hr Lisinopril (Zestril) 5 mg PO DAILY [facility] Last Admin: 09/16/16 10:22 Dose: Not Given Lorazepam (Ativan) 1 mg IVP Q3H PRN PRN Reason: Agitation Last Admin: 09/14/16 22:10 Dose: 1 mg Metoprolol Tartrate (Lopressor) 25 mg PO BID [facility] Last Admin: 09/12/16 09:29 Dose: 25 mg Morphine Sulfate (Morphine) 1 mg IV Q4 PRN PRN Reason: Pain, moderate (4-7) Last Admin: 09/16/16 18:31 Dose: 1 mg - Labs Labs: 09/17/16 06:20 09/17/16 06:20 PT 13.5 SECONDS (9.7-12.2) H 09/14/16 11:40 INR 1.2 09/14/16 11:40 APTT 37 SECONDS (21-34) H 09/14/16 11:40 - Constitutional Appears: Toxic, No Acute Distress - Head Exam Head Exam: ATRAUMATIC, NORMAL INSPECTION, NORMOCEPHALIC - Eye Exam Eye Exam: absent: EOMI - ENT Exam ENT Exam: Mucous Membranes Dry - Neck Exam Additional comments: trach in place- minimal mucus secretions, non bloody - Cardiovascular Exam Cardiovascular Exam: Irregular Rhythm - GI/Abdominal Exam GI & Abdominal Exam: Distended, Soft, Hypoactive Bowel Sounds. absent: Firm, Guarding, Rigid Additional comments: G-tube in place, insertion site non bloody, non erythematous - Exam Additional comments: Martinez in place- 5 cc yellow output - Extremities Exam Extremities Exam: absent: Normal Capillary Refill (decreased), Normal Inspection (cold extremities) - Neurological Exam Neurological Exam: Awake - Psychiatric Exam Additional comments: Non verbal - Skin Skin Exam: Dry, Mottled (Extremities), Pallor. absent: Diaphoretic, Warm (cold) Assessment and Plan - Assessment and Plan (Free Text) Assessment: 76F POD#2 s/p PEG and trach placement due to acute respiratory failure with need for chronic mechanical ventilation and failure to thrive, continuing to require pressor support, with cardiac arrhythmia on monitor, continuing to require ICU care. Plan: Assess trach site for bleeding Plan to remove trach site sutures on POD#10 Monitor PEG tube output- PEG to gravity Hold tube feeds Further mgmt as per ICU Will NATY attending Bronwyn, PGY-1
[2016-09-17 08:00] LABS: ANISOCYTOSIS SLIGHT; BANDS 59 % (0-2); LYMPHOCYTE 2 % (20-40); MONOCYTE 4 % (0-10); NEUTROPHIL 35 % (50-75); NUCLEATED RED BLOOD CELL 1 % (0-0); PLATELET ESTIMATE DECREASED (NORMAL); TOTAL CELLS COUNTED 100
[2016-09-17 08:01] LABS: HYPOCHROMIC MODERATE; POLYCHROMIC SLIGHT
[2016-09-17 08:02] LABS: BURR CELLS SLIGHT; OVALOCYTES SLIGHT
[2016-09-17 08:03] LABS: GIANT PLATELETS PRESENT; LARGE PLATELETS PRESENT
[2016-09-17 08:58] VITALS: BP 70/15
[2016-09-17] MEDS ORDERED: Sodium Bicarbonate (8.4%) 50 Meq Syringe IVP ONE ×2 (09:04→09:05)
[2016-09-17] MEDS: Cefepime IV 1 gm in Dextrose 1 GM/50 ML BAG IVPB SCH (09:43)
[2016-09-17] MEDS: Linezolid 600 mg in D5W 300 ml 600 MG/300 ML BAG IVPB SCH (10:22)
[2016-09-17 10:34] VITALS: O2SAT 100
[2016-09-17 12:09] VITALS: PULSE 43
--- NOTE | 2016-09-17 14:02 | CP.PCM.PN ---
Subjective - Date & Time of Evaluation Date of Evaluation: 09/17/16 Time of Evaluation: 14:01 - Subjective Subjective: Pt in septic shock. On pressor support. DNR/DNI. D/W Family who decided to withdraw care as pt prognosis was terminal. Time of 1:30 PM on 09/17/2016 Objective - Vital Signs/Intake and Output Vital Signs (last 24 hours): Temp Pulse Resp BP Pulse Ox 97 F L 43 L 20 70/15 L 100 09/17/16 04:00 09/17/16 12:00 09/17/16 12:00 09/17/16 08:54 09/17/16 10:00 Intake and Output: 09/17/16 09/17/16 06:59 18:59 Intake Total 1376.3 939.0 Output Total 0 0 Balance 1376.3 939.0 - Medications Medications: Current Medications Acetaminophen (Tylenol 650mg/20.3ml Solution Ud) 650 mg PO Q6H PRN PRN Reason: temp.100.4&above;mild pain 1-3 Last Admin: 08/25/16 00:45 Dose: 650 mg Albuterol/Ipratropium (Duoneb 3 Mg/0.5 Mg (3 Ml) Ud) 3 ml INH RQ6 [place] Last Admin: 09/17/16 07:45 Dose: Not Given Digoxin (Lanoxin) 0.25 mg IVP DAILY@1800 [place] Last Admin: 09/16/16 17:07 Dose: 0.25 mg Famotidine (Pepcid) 20 mg IVP DAILY [facility]S [facility] 234 BEDS AT [facility] Last Admin: 09/17/16 09:43 Dose: 20 mg Heparin Sodium (Porcine) (Heparin) 5,000 units SC Q12 [facility] 234 BEDS AT [facility] Last Admin: 09/17/16 09:42 Dose: 5,000 units Cefepime HCl (Maxipime Iv 1 Gm Premix) 1 gm in 50 mls @ 100 mls/hr IVPB Q12H [facility]S [facility]CLUDE 234 BEDS AT [facility] Last Admin: 09/17/16 09:43 Dose: 100 mls/hr Linezolid (Zyvox 600mg/300ml D5w) 600 mg in 300 mls @ 200 mls/hr IVPB Q12 [facility]CLUDE 234 BEDS AT [facility] Last Admin: 09/17/16 10:22 Dose: 200 mls/hr Micafungin Sodium 100 mg/ (Sodium Chloride) 100 mls @ 100 mls/hr IV Q24H [facility]S [facility]CLUDE 234 BEDS AT THE [facility] Last Admin: 09/16/16 22:35 Dose: 100 mls/hr Dextrose (Dextrose 10% In Water) 1,000 mls @ 30 mls/hr IV .Q24H [facility]S [facility]CLUDE 234 BEDS AT THE [facility] Last Admin: 09/16/16 11:40 Dose: 30 mls/hr Lisinopril (Zestril) 5 mg PO DAILY [facility]S [facility]CLUDE 234 BEDS AT [facility] Last Admin: 09/16/16 10:22 Dose: Not Given Lorazepam (Ativan) 1 mg IVP Q3H PRN PRN Reason: Agitation Last Admin: 09/14/16 22:10 Dose: 1 mg Metoprolol Tartrate (Lopressor) 25 mg PO BID [facility]CLUDE 234 BEDS AT [facility] Last Admin: 09/12/16 09:29 Dose: 25 mg Morphine Sulfate (Morphine) 1 mg IV Q4 PRN PRN Reason: Pain, moderate (4-7) Last Admin: 09/16/16 18:31 Dose: 1 mg - Labs Labs: 09/17/16 06:20 09/17/16 06:20 PT 13.5 SECONDS (9.7-12.2) H 09/14/16 11:40 INR 1.2 09/14/16 11:40 APTT 37 SECONDS (21-34) H 09/14/16 11:40
--- NOTE | 2016-09-18 11:34 | CARD ---
APPROVED REPORT EKG Measurement Heart [id number] <Conclusion> Atrial fibrillation with rapid ventricular response LVH with repolarization abnormality. Abnormal ECG
--- NOTE | 2016-09-23 16:01 | CP.PCM.DIS ---
Provider - Provider Date of Admission: 08/07/16 18:00 Attending physician: Paul Rodriguez MD Primary care physician: Paul Rodriguez M.D. Consults: Dr Elena, Dr Stanley, Dr Peacock, all Intensivists. Time Spent in preparation of Discharge (in minutes): 45 Diagnosis - Discharge Diagnosis (1) Closed fracture of greater trochanter of left femur Status: Acute (2) Sepsis Status: Acute (3) Fall Status: Acute (4) Contusion of head Status: Acute (5) Garden grade IV closed subcapital fracture of proximal end of right femur Status: Acute (6) Acute respiratory failure Status: Acute (7) Right middle lobe pneumonia Status: Acute (8) VRE (vancomycin resistant enterococcus) culture positive Status: Acute Hospital Course - Lab Results Lab Results: Micro Results 09/15/16 22:30 Blood Blood Culture - Final NO GROWTH AFTER 5 DAYS 09/15/16 22:30 Blood Gram Stain - Final TEST NOT PERFORMED 09/15/16 22:45 Blood Blood Culture - Final NO GROWTH AFTER 5 DAYS 09/15/16 22:45 Blood Gram Stain - Final TEST NOT PERFORMED 09/10/16 06:00 Urine,Martinez Urine Culture - Final No Growth (<1,000 CFU/ML) 08/29/16 12:00 Urine,Martinez Urine Culture - Final Vancomycin Resistant E.faecium 08/25/16 08:09 Trachasp Gram Stain - Final 08/25/16 08:09 Trachasp Sputum Culture - Final Yeast Species 08/19/16 18:27 Pleural Fluid Gram Stain - Final 08/19/16 18:27 Pleural Fluid Body Fluid Culture - Final No growth. 08/14/16 12:45 Blood-Venous Blood Culture - Final NO GROWTH AFTER 5 DAYS 08/14/16 12:45 Blood-Venous Gram Stain - Final 08/14/16 12:15 Blood-Venous Blood Culture - Final NO GROWTH AFTER 5 DAYS 08/14/16 12:15 Blood-Venous Gram Stain - Final TEST NOT PERFORMED 08/14/16 01:50 Trachasp Gram Stain - Final 08/14/16 01:50 Trachasp Sputum Culture - Final Yeast Species 08/14/16 14:50 Urine,Martinez Urine Culture - Final Yeast Species 08/07/16 Unknown Urine,Catheterized Urine Culture - Final No Growth (<1,000 CFU/ML) Most Recent Lab Values WBC 38.4 K/uL (4.8-10.8) H* 09/17/16 06:20 RBC 2.34 Mil/uL (3.80-5.20) L 09/17/16 06:20 Hgb 7.8 g/dL (11.0-16.0) L D 09/17/16 06:20 Hct 27.8 % (34.0-47.0) L 09/17/16 06:20 MCV 118.4 fL (81.0-99.0) H D 09/17/16 06:20 MCH 33.3 pg (27.0-31.0) H 09/17/16 06:20 MCHC 28.1 g/dL (33.0-37.0) L 09/17/16 06:20 RDW 18.1 % (11.5-14.5) H 09/17/16 06:20 Plt Count 51 K/uL (130-400) L D 09/17/16 06:20 MPV 13.4 fL (7.2-11.7) H 09/17/16 06:20 Neut % (Auto) 90.2 % (50.0-75.0) H 09/17/16 06:20 Lymph % (Auto) 4.2 % (20.0-40.0) L 09/17/16 06:20 [place] % (Auto) 5.1 % (0.0-10.0) 09/17/16 06:20 Eos % (Auto) 0.3 % (0.0-4.0) 09/17/16 06:20 Baso % (Auto) 0.2 % (0.0-2.0) 09/17/16 06:20 Neut # 34.7 K/uL (1.8-7.0) H 09/17/16 06:20 Lymph # 1.6 K/uL (1.0-4.3) 09/17/16 06:20 [place] # 2.0 K/uL (0.0-0.8) H 09/17/16 06:20 Eos # 0.1 K/uL (0.0-0.7) 09/17/16 06:20 Baso # 0.1 K/uL (0.0-0.2) 09/17/16 06:20 Neutrophils % (Manual) 35 % (50-75) L 09/17/16 06:20 Band Neutrophils % 59 % (0-2) H* 09/17/16 06:20 Lymphocytes % (Manual) 2 % (20-40) L 09/17/16 06:20 Reactive Lymphs % [employer] 08/07/16 14:43 Monocytes % (Manual) 4 % (0-10) 09/17/16 06:20 Eosinophils % (Manual) 3 % (0-4) 09/07/16 06:15 Basophils % (Manual) 2 % (0-2) 08/31/16 06:08 Nucleated RBC % 1 % (0-0) H 09/17/16 06:20 Differential Comment Cancelled 08/18/16 06:24 Toxic Granulation Present 08/30/16 06:17 Platelet Estimate Decreased (NORMAL) L 09/17/16 06:20 Large Platelets Present 09/17/16 06:20 Giant Platelets Present 09/17/16 06:20 RBC Morphology Normal 08/12/16 06:25 Polychromasia Slight 09/17/16 06:20 Hypochromasia (manual) Moderate 09/17/16 06:20 Poikilocytosis (manual Slight 09/16/16 06:11 Basophilic Stippling Slight 09/05/16 06:22 Anisocytosis (manual) Slight 09/17/16 06:20 Macrocytosis (manual) Moderate 09/17/16 06:20 Spherocytes Slight 08/30/16 06:17 Target Cells Slight 09/15/16 10:29 Tear Drop Cells Slight 09/16/16 06:11 Ovalocytes Slight 09/17/16 06:20 [place] Cells Slight 09/17/16 06:20 Schistocytes Slight 08/31/16 06:08 PT 13.5 SECONDS (9.7-12.2) H 09/14/16 11:40 INR 1.2 09/14/16 11:40 APTT 37 SECONDS (21-34) H 09/14/16 11:40 Puncture Site Rf 09/16/16 08:37 pCO2 32 mm/Hg (35-45) L 09/16/16 08:37 pO2 132 mm/Hg (80-100) H 09/16/16 08:37 HCO3 14.8 mmol/L (21-28) L 09/16/16 08:37 ABG pH 7.23 (7.35-7.45) L 09/16/16 08:37 ABG Total CO2 14.4 mmol/L (22-28) L 09/16/16 08:37 ABG O2 Saturation 100.2 % (95-98) H 09/16/16 08:37 ABG Base Excess -13.0 mmol/L (-2.0-3.0) L 09/16/16 08:37 ABG Hemoglobin 11.8 g/dL (11.7-17.4) 09/15/16 05:07 ABG Carboxyhemoglobin 2.1 % (0.5-1.5) H 09/15/16 05:07 POC ABG HHb (Measured) 1.7 % (0.0-5.0) 09/15/16 05:07 ABG Methemoglobin 1.3 % (0.0-3.0) 09/15/16 05:07 Seng Test Na 09/16/16 08:37 ABG Potassium 6.1 mmol/L (3.6-5.2) H 09/16/16 08:37 VBG pH 7.21 (7.32-7.43) L 08/07/16 17:30 VBG pCO2 50 mmHg (40-60) 08/07/16 17:30 VBG HCO3 17.3 mmol/L 08/07/16 17:30 VBG Total CO2 21.5 mmol/L (22-28) L 08/07/16 17:30 VBG O2 Sat (Calc) 48.6 % (40-65) 08/07/16 17:30 VBG Base Excess -8.1 mmol/L (0.0-2.0) L 08/07/16 17:30 VBG Potassium 5.0 mmol/L (3.6-5.2) 08/07/16 17:30 A-a O2 Difference 541.0 mm/Hg 09/16/16 08:37 Respiratory Index 4.1 09/16/16 08:37 Hgb O2 Saturation 95.0 % (95.0-98.0) 09/15/16 05:07 Sodium 136.0 mmol/l (132-148) 09/16/16 08:37 Chloride 108.0 mmol/L (98-107) H 09/16/16 08:37 Glucose 104 mg/dl (65-105) 09/16/16 08:37 Lactate 8.1 mmol/L (0.7-2.1) H* 09/16/16 08:37 Liter Flow 15.0 08/10/16 01:25 Mechanical Rate 20 09/16/16 08:37 FiO2 100.0 % 09/16/16 08:37 Tidal Volume 400 09/16/16 08:37 PEEP 5 09/16/16 08:37 Inspiratory BiPAP 12 09/02/16 09:40 Expiratory BiPAP 6 09/02/16 09:40 Crit Value Called To Dr efe brush 09/16/16 08:37 Crit Value Called By Jessy lanza chummer 09/16/16 08:37 Crit Value Read Back Y 09/16/16 08:37 Blood Gas Notified Time 845 09/16/16 08:37 Sodium 126 mmol/L (132-148) L 09/17/16 06:20 Potassium 6.6 mmol/L (3.6-5.2) H* 09/17/16 06:20 Chloride 99 mmol/L (98-107) 09/17/16 06:20 Carbon Dioxide 10 mmol/L (22-30) L* D 09/17/16 06:20 Anion Gap 24 (10-20) H 09/17/16 06:20 BUN 62 mg/dL (7-17) H 09/17/16 06:20 Creatinine 2.0 MG/DL (0.7-1.2) H 09/17/16 06:20 Est GFR ( Amer) 29 09/17/16 06:20 Est GFR (Non-Af Amer) 24 09/17/16 06:20 POC Glucose (mg/dL) 79 mg/dL (65-110) 09/17/16 11:09 Random Glucose 259 mg/dL (65-105) H 09/17/16 06:20 Lactic Acid 1.3 mmol/L (0.7-2.1) 08/08/16 04:00 Calcium 6.9 mg/dl (8.6-10.4) L 09/17/16 06:20 Phosphorus 9.5 mg/dL (2.5-4.5) H 09/17/16 06:20 Magnesium 2.7 mg/dL (1.6-2.3) H 09/17/16 06:20 Total Bilirubin 2.0 mg/dL (0.2-1.3) H 09/17/16 06:20 AST > 7500 U/L (14-36) H 09/17/16 06:20 ALT 5468 U/L (9-52) H 09/17/16 06:20 Alkaline Phosphatase 243 U/L (38-126) H 09/17/16 06:20 Total Creatine Kinase 1326 U/L (30-135) H 08/07/16 14:43 Troponin I 0.2740 ng/mL (0.00-0.120) H* 08/13/16 06:23 NT-Pro-B Natriuret Pep 7010 pg/mL (0-900) H 08/26/16 09:41 Total Protein 4.1 g/dL (6.3-8.3) L 09/17/16 06:20 Albumin 1.5 g/dL (3.5-5.0) L D 09/17/16 06:20 Globulin 2.6 gm/dL (2.2-3.9) 09/17/16 06:20 Albumin/Globulin Ratio 0.6 (1.0-2.1) L 09/17/16 06:20 Procalcitonin 0.12 NG/ML (0.19-0.49) L 09/01/16 06:09 Arterial Blood Potassium 6.1 mmol/L (3.6-5.2) H 09/16/16 08:37 Venous Blood Potassium 5.0 mmol/L (3.6-5.2) 08/07/16 17:30 Urine Color Yellow (YELLOW) 09/11/16 07:08 Urine Clarity Hazy (Clear) 09/11/16 07:08 Urine pH 8.0 (5.0-8.0) 09/11/16 07:08 Ur Specific [place] 1.018 (1.003-1.030) 09/11/16 07:08 Urine Protein 1+ mg/dL (NEGATIVE) H 09/11/16 07:08 Urine Glucose (UA) Normal mg/dL (Normal) 09/11/16 07:08 Urine Ketones Negative mg/dL (NEGATIVE) 09/11/16 07:08 Urine Blood Negative (NEGATIVE) 09/11/16 07:08 Urine Nitrate Negative (NEGATIVE) 09/11/16 07:08 Urine Bilirubin Negative (NEGATIVE) 09/11/16 07:08 Urine Urobilinogen Normal mg/dL (0.2-1.0) 09/11/16 07:08 Ur Leukocyte Esterase 2+ David/uL (Negative) H 09/11/16 07:08 Urine WBC (Auto) 106 /hpf (0-5) H 09/11/16 07:08 Urine RBC (Auto) 9 /hpf (0-3) H 09/11/16 07:08 Ur Squamous Epith Cells 1 /hpf (0-5) 08/29/16 11:25 Amorphous Sediment Occ /ul (<OCC) H 08/07/16 15:23 Urine Bacteria Rare (<OCC) 09/11/16 07:08 Hyaline Casts >20 /lpf (0-2) H 08/07/16 15:23 Granular Casts (Auto) 1 /lpf (0-1) 08/07/16 15:23 Urine Yeast (Budding) Rare /hpf (NEGATIVE) H 08/29/16 11:25 Fluid Source Pleural/thoracentesi 08/19/16 19:02 Fluid Appearance Clear (CLEAR) 08/19/16 19:02 Fluid WBC 12.0 /mm3 (0.0-300.0) 08/19/16 19:02 Fluid RBC 210.0 /mm3 (0.0-0.0) H 08/19/16 19:02 Fluid Tot Cell Count TEST NOT PERFORMED 08/19/16 19:02 Fluid Neutrophils 25.0 % (0-0) H 08/19/16 19:02 Fluid Lymphocytes 63.0 % (0-0) H 08/19/16 19:02 Fld Monocyte/Macrophag 12 % (0-0) H 08/19/16 19:02 Fluid Comment 08/19/16 19:02 Pleural Total Protein <3.0 g/dL 08/19/16 19:02 Pleural LDH 43 U/L 08/19/16 19:02 Pleural Glucose 106 mg/dL 08/19/16 19:02 Stool Occult Blood Negative (NEGATIVE) 08/16/16 20:50 Digoxin 0.8 ng/mL (0.8-2.0) 09/11/16 10:50 Alcohol, Quantitative < 10 mg/dl (0-10) 08/07/16 14:43 Blood Type B POSITIVE 09/15/16 10:42 Antibody Screen Negative 09/15/16 10:42 - Hospital Course Hospital Course: Patient is a 76 yo female who was brought by ambulance to the ED because she had fallen at home the previous day and was not able to stand up. In the ED, she was dehydrated, acidotic with a right periorbital hematoma, excoriations all over her body, and swollen both hips. Xrays and CT scan of the hips and pelvis revealed a displaced fracture of the right femoral neck and a non- displaced fracture of the left greater trochanter. She was started on IV antibiotics and surgery was comtemplated to repair her right hip fracture. Because a pre-op echocardiogram disclosed a severe left ventricular hypokinesia , she underwent a left heart catheterization and an angiogram on 08/13/[address] Cantu. 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 IN ICU, post catheterization, she suddenly developed an acute respiratory distress requiring intubation and a respirator. She was continued on IV antibiotics because of a presumed aspiration. Many trials to extubate the patient failed. She underwent a tracheostomy and a PEG insertion on 09/15/2016. She became lethargic, hypotensive afterwards, was put on Vasopressors. But the patient's family requested to end life support and the patient on 09/17/2016. - Date & Time of H&P Date of H&P: 08/08/16 Discharge Exam - Head Exam Head Exam: NORMOCEPHALIC Discharge Plan - Follow Up Plan Condition: GUARDED Disposition: WITH WITHOUT AUTOPSY Clinical Quality Measures - Date & Time of Discharge Summary Date of Discharge Summary: 09/23/16
--- NOTE | 2016-09-24 14:25 | PCM.OP ---
Operative Report - Operative Report Date of Surgery/Procedure: 09/16/16 Time of Surgery/Procedure: 12:00 Surgeon: Osiel Gale MD Nuclear Medicine Supervisor: AN Sellers Anesthesia/Sedation: GETWai Pre-Operative Diagnosis: 1. Vent-dependent respiratory failure. 2. Pneumonia. 3. Dysphagia. 4. CHF. 5. CAD. Post-Operative Diagnosis: 1. Vent-dependent respiratory failure. 2. Pneumonia. 3. Dysphagia. 4. CHF. 5. CAD. Indication for Surgery: VDRF, Dyphagia Operative Findings: Patient had excessive bronchial secretions, as well as thickened mucosal plug. On EGD, patient had inflamed gastric mucosa without any other abnormality Procedure/Operation Description: 1. Diagnostic bronchoscopy with lavage. 2. Percutaneous tracheostomy. 3. EGD. 4. Percutaneous endoscopic gastrostomy tube placement. This is a 76 year-old female who had a vent-dependent respiratory failure, pneumonia, dysphagia, CHF, and CAD. Patient needed a percutaneous tracheostomy, as well as a bagged tube placement. After consent from the family, patient was brought to the OR, placed supine on operating table. After induction of the anesthesia, first bronchoscopy was done, and the thickened mucus plug, as well as secretion, was broken down and a lavage was done. After complete cleaning off the ET tube, as well as the mainstream bronchus bilaterally, the incision was made on the lower neck after prepping and draping. Under the bronchoscopy guide, the needle was placed. Guidewire was placed and the tract was dilated and using the Blue Rhino Kit, the tracheostomy tube was placed. The tracheostomy tube was connected to the internal CO2 and there was a good internal CO2 of 23 to 26. After that, the tracheostomy tube was secured to the skin and the strap was placed. The EGD was done and the mucosa of the stomach appeared to be inflamed and the dimpling test as well as the transillumination test was positive. On the LUQ, the needle was placed and the guidewire was placed. The guidewire was snared and the PEG tube was connected to the guidewire. The guidewire was pulled out through the skin incision on the LUQ with the PEG tube. Now, again, the EGD was done to confirm the button inside the stomach. Again, the transillumination was done. After proper placement of the tube, the stomach was suctioned out and the EGD scope was completely withdrawn. The PEG tube was secured to the skin. Dry, sterile dressing was applied. Patient tolerated procedure well. The count of instruments was correct. There were no apparent complications. Estimated Blood Loss: 10 cc Drains: None Complications: None Specimen: None Discharge & Condition: stable
== END 2016-09-17 13:30 | DRG 4 ==
LOC: C.ER 13:22 → C.9I 18:00
PROVIDERS: ADMIT Internal Medicine Cardiovascular Disease; ATTEND Internal Medicine Cardiovascular Disease
PROC: 5A09457 Assistance with Respiratory Ventilation, 24-96 Consecutive Hours, Continuous Positive Airway Pressure (ICD-10-PCS; 2016-08-10)
PROC: 5A1955Z Respiratory Ventilation, Greater than 96 Consecutive Hours (ICD-10-PCS; 2016-08-13)
PROC: B2111ZZ Fluoroscopy of Multiple Coronary Arteries using Low Osmolar Contrast (ICD-10-PCS; 2016-08-13)
PROC: 4A023N7 Measurement of Cardiac Sampling and Pressure, Left Heart, Percutaneous Approach (ICD-10-PCS; 2016-08-13)
PROC: B2051ZZ Plain Radiography of Left Heart using Low Osmolar Contrast (ICD-10-PCS; 2016-08-13)
PROC: 0BH17EZ Insertion of Endotracheal Airway into Trachea, Via Natural or Artificial Opening (ICD-10-PCS; 2016-08-13)
PROC: 4A023N7 Measurement of Cardiac Sampling and Pressure, Left Heart, Percutaneous Approach (ICD-10-PCS; principal; 2016-08-13 11:00)
PROC: 02HV33Z Insertion of Infusion Device into Superior Vena Cava, Percutaneous Approach (ICD-10-PCS; 2016-08-18)
PROC: 0W9930Z Drainage of Right Pleural Cavity with Drainage Device, Percutaneous Approach (ICD-10-PCS; 2016-08-19)
PROC: 0B113F4 Bypass Trachea to Cutaneous with Tracheostomy Device, Percutaneous Approach (ICD-10-PCS; 2016-09-15)
PROC: 0DH63UZ Insertion of Feeding Device into Stomach, Percutaneous Approach (ICD-10-PCS; 2016-09-15)
PROC: 5A1945Z Respiratory Ventilation, 24-96 Consecutive Hours (ICD-10-PCS; 2016-09-15)
PROC: 0DJ08ZZ Inspection of Upper Intestinal Tract, Via Natural or Artificial Opening Endoscopic (ICD-10-PCS; 2016-09-15)
PROC: 3E1F88Z Irrigation of Respiratory Tract using Irrigating Substance, Via Natural or Artificial Opening Endoscopic (ICD-10-PCS; 2016-09-15)
DX: S72.011A Unspecified intracapsular fracture of right femur, initial encounter for closed fracture (principal); I46.9 Cardiac arrest, cause unspecified; J69.0 Pneumonitis due to inhalation of food and vomit; I50.23 Acute on chronic systolic (congestive) heart failure; J96.21 Acute and chronic respiratory failure with hypoxia; A41.9 Sepsis, unspecified organism; I44.2 Atrioventricular block, complete; N17.9 Acute kidney failure, unspecified; S72.115A Nondisplaced fracture of greater trochanter of left femur, initial encounter for closed fracture; I47.1 Supraventricular tachycardia; N39.0 Urinary tract infection, site not specified; M62.82 Rhabdomyolysis; Z68.1 Body mass index [BMI] 19.9 or less, adult; Z99.11 Dependence on respirator [ventilator] status; I11.0 Hypertensive heart disease with heart failure; I25.82 Chronic total occlusion of coronary artery; E86.0 Dehydration; I48.91 Unspecified atrial fibrillation; J44.9 Chronic obstructive pulmonary disease, unspecified; F17.210 Nicotine dependence, cigarettes, uncomplicated; F41.9 Anxiety disorder, unspecified; R62.7 Adult failure to thrive; S00.93XA Contusion of unspecified part of head, initial encounter; W01.0XXA Fall on same level from slipping, tripping and stumbling without subsequent striking against object, initial encounter; E16.2 Hypoglycemia, unspecified; I25.10 Atherosclerotic heart disease of native coronary artery without angina pectoris; M16.11 Unilateral primary osteoarthritis, right hip; M81.0 Age-related osteoporosis without current pathological fracture; Z96.641 Presence of right artificial hip joint; Z66 Do not resuscitate; I25.5 Ischemic cardiomyopathy